=== PATIENT | male | born 1950 | race Caucasian/White ===

== ENCOUNTER 2016-03-25 06:35 | Day surgery (SDC) | payer MEDICARE, OTHER ==
[~2016-03-25 06:35] MED LIST: KETOROLAC TROMETHAMINE 0.45% 4 DROP/0.4 ML DROPERETTE OD PRN
[2016-03-25] MEDS: BESIFLOXACIN HCL 0.6% OPH SUSP 5 ML BOTTLE OD PRN ×4 (07:02→08:07)
[2016-03-25] MEDS: TETRACAINE HCL 0.5% OPH SOLN 2 ML OD PRN ×3 (07:02→07:40)
[2016-03-25] MEDS: CYCLOPENTOLATE 0.2%/PHENYLEPHRINE 1% OPH SOLN 2 ML OD PRN ×3 (07:02→07:21)
[2016-03-25] MEDS: TROPICAMIDE 1% OPH SOLN 3 ML OD PRN ×3 (07:02→07:21)
[2016-03-25] MEDS ORDERED: MIDAZOLAM 2 MG/2 ML INJ ONE ×2 (07:09)
[2016-03-25] MEDS ORDERED: EPINEPHRINE INJ/PF 1 MG/1 ML AMPULE ONE (07:11)
[2016-03-25] MEDS: CHONDR SU A NA/HYALUR INTRAOC KIT (SURGICARE) ONE ×2 (07:50)
[2016-03-25] MEDS: LIDOCAINE 1% INJ-PF (10 MG/ML) 30 ML SDV ONE ×2 (07:50)
--- NOTE | 2016-03-25 19:49 | [facility] OPERATIVE REPORT E ---
[facility] Operative Report NAME: RUSSELL PARRA AGE: 65Y DATE OF SURGERY: 03/25/2016 ROOM: PREOPERATIVE DIAGNOSIS: CATARACT, RIGHT EYE. POSTOPERATIVE DIAGNOSIS: CATARACT, RIGHT EYE. OPERATION: Cataract extraction with intraocular lens implant of the right eye. SURGEON: KALE HSU M.D. ANESTHESIA: Topical. PROCEDURE: After obtaining appropriate consent, the patient's right eye was prepped and draped in sterile fashion as well as the surgeon in a sterile manner and cataract surgery was started. First a paracentesis blade was used to make a small side-port incision. Viscoelastic was used to inflate the anterior chamber. Next a 2.4 mm incision was made with the paracentesis blade. A continuous capsulorrhexis incision was made using a cystotome and Utrata forceps. Following this hydrodissection was carried out to make the lens fully loose and mobile and it was rotated 90 degrees. Following this, a xxvglv-bpa-ndhvsex technique was used to phacoemulsify the lens with a CDE of 10.67. The remaining cortex was removed with irrigation/aspiration. Provisc was instilled into the capsular bag to inflate the bag. A SN60WF, 17.5 diopter lens was placed. The remaining viscoelastic material was removed with irrigation/aspiration. Following this, a 10-0 nylon suture was used to close the incision and it was found to be watertight. Vigamox was instilled in the eye and a protective shield was placed over the eye. The patient returned to the postoperative recovery in stable condition. DICTATING PHYSICIAN: KALE HSU M.D. [id number] PHY#: [id number] ID: [id number] JOB#: [id number] ACCT: [id number] cc:KALE HSU M.D. >
--- NOTE | 2016-03-25 19:53 | DISCHARGE SUMMARY E ---
Discharge Summary NAME: RUSSELL PARRA : 1950 AGE: 65Y ADMITTED: 03/25/2016 DISCHARGED: 03/25/2016 This is a 65-year-old male who underwent cataract extraction of the right eye. DIAGNOSIS: Cataract, right eye. He underwent surgery because he was trouble reading print like his Bible. DISCHARGE INSTRUCTIONS: He is to be on a regular diet. No bending at his waist, no heavy lifting. He is to use Besivance, Ilevro, and Durezol at 3:00 p.m. and 8:00 p.m., and sleep with a rigid shield. I will see him for his one day postoperative tomorrow. DICTATING PHYSICIAN: KALE HSU M.D. [id number] PHY#: [id number] 1926 ID: [id number] JOB#: [id number] ACCT: [id number] cc:AKLE HSU M.D. >
== END 2016-03-25 08:46 | disposition home or self-care (01) ==
LOC: SC 06:35
PROVIDERS: ATTEND Internal Medicine
PROC: 08RJ3JZ Replacement of Right Lens with Synthetic Substitute, Percutaneous Approach (ICD-10-PCS; principal; 2016-03-25 07:30)
DX: H25.11 Age-related nuclear cataract, right eye (principal); E11.9 Type 2 diabetes mellitus without complications; I10 Essential (primary) hypertension; E78.00 Pure hypercholesterolemia, unspecified; J45.909 Unspecified asthma, uncomplicated; H04.123 Dry eye syndrome of bilateral lacrimal glands; I66.8 Occlusion and stenosis of other cerebral arteries; H43.812 Vitreous degeneration, left eye; H52.4 Presbyopia; R53.1 Weakness; Z79.4 Long term (current) use of insulin; Z95.1 Presence of aortocoronary bypass graft; Z86.73 Personal history of transient ischemic attack (TIA), and cerebral infarction without residual deficits; Z79.82 Long term (current) use of aspirin; Z79.899 Other long term (current) drug therapy; Z79.02 Long term (current) use of antithrombotics/antiplatelets
CPT/HCPCS: 66984; 82962; V2632; J2250; J3490 ×2; A9270; J0171; 142

== ENCOUNTER 2016-09-04 12:57 | Inpatient (IN) | payer MEDICARE, OTHER ==
[2016-09-04] MEDS ORDERED: ACETAMINOPHEN 325 MG TABLET PO ONE (13:07)
[2016-09-04] MEDS ORDERED: NORMAL SALINE 1000 ML 1,000 ML IV ONE (13:32)
[2016-09-04 13:59] LABS: ABSOLUTE EOSINOPHILS # (AUTO) 0.1 10^3/uL (0.0-0.6); ABSOLUTE LYMPHOCYTES (AUTO) 0.8 10^3/uL (0.5-4.7); ABSOLUTE MONOCYTES (AUTO) 0.5 10^3/uL (0.1-1.4); ABSOLUTE NEUT (AUTO) 6.1 10^3/uL (1.7-8.2); BASOPHILS % (AUTO) 0.1 % (0-2); HEMATOCRIT 38.7 % (37.9-51.0); HGB HCT DIFFERENCE 0.3; LYMPHOCYTES % (AUTO) 10.9 % (13-45); MEAN CORPUSCULAR HEMOGLOBIN 30.1 pg (27.0-33.4); MEAN CORPUSCULAR HGB CONC 33.5 g/dL (32.0-36.0); MEAN CORPUSCULAR VOLUME 90 fl (80-97); RED CELL DISTRIBUTION WIDTH 13.5 % (11.5-14.0); WHITE BLOOD COUNT 7.6 10^3/uL (4.0-10.5)
[2016-09-04] MEDS ORDERED: VANCOMYCIN HCL INJ 1000 MG VIAL IV ONE (14:09)
[2016-09-04] MEDS ORDERED: PIPERACILLIN/TAZOBACTAM 3.375 GM VIAL IV ONE (14:09)
--- NOTE | 2016-09-04 14:11 | ER Document Report ---
ED General - General Chief Complaint: Leg Pain Stated Complaint: LEG PAIN Time Seen by Provider: 09/04/16 13:31 Mode of Arrival: Ambulatory Information source: Patient Notes: This is a 65-year-old man with a history of requiring diabetes, hypertension, CVA (right sided weakness), coronary artery disease. Patient presents to the emergency room with redness of the left lower extremity for the past 3 days and fever and chills. TRAVEL OUTSIDE OF THE [place] IN LAST 30 DAYS: No - HPI Onset: Last week Onset/Duration: Gradual Quality of pain: Dull Severity: Moderate Pain Level: 3 Associated symptoms: Chills, Fever. denies: Shortness of breath Exacerbated by: Denies Relieved by: Denies Similar symptoms previously: Yes Recently seen / treated by doctor: Yes - Related Data Allergies/Adverse Reactions: No Known Allergies Allergy (Verified 09/04/16 13:04) Past Medical History - General Information source: Patient - Social History Smoking Status: Never Smoker Cigarette use (# per day): No Chew tobacco use (# tins/day): No Frequency of alcohol use: None Drug Abuse: None Lives with: Family Family History: Reviewed & Not Pertinent Patient has suicidal ideation: No Patient has homicidal ideation: No - Past Medical History Cardiac Medical History: Reports: Hx Coronary Artery Disease, Hx Hypercholesterolemia, Hx Hypertension Denies: Hx Heart Attack Pulmonary Medical History: Reports: Hx Asthma, Hx Pneumonia, Hx Sleep Apnea - cpap did not help Denies: Hx Bronchitis, Hx COPD, Hx Tuberculosis Neurological Medical History: Reports: Hx Cerebrovascular Accident - DEC 2011. Denies: Hx Seizures Renal/ Medical History: Denies: Hx Peritoneal Dialysis GI Medical History: Reports: Hx Gastroesophageal Reflux Disease - rarely. Denies: Hx Hepatitis, Hx Hiatal Hernia, Hx Ulcer Musculoskeltal Medical History: Denies Hx Arthritis Traumatic Medical History: Reports: Hx Fractures - right gallegos Infectious Medical History: Denies: Hx Hepatitis Past Surgical History: Reports: Hx Appendectomy, Hx Cholecystectomy, Hx Coronary Artery Bypass Graft, Hx Open Heart Surgery - STENT bypass. Denies: Hx Pacemaker - Immunizations Hx Diphtheria, Pertussis, Tetanus Vaccination: Yes - HAS HAD PNEUMONIA BUT UNSURE OF WHEN Review of Systems - Review of Systems Constitutional: Chills, Fever EENT: No symptoms reported Cardiovascular: No symptoms reported Respiratory: No symptoms reported Gastrointestinal: No symptoms reported Genitourinary: No symptoms reported Male Genitourinary: No symptoms reported Musculoskeletal: See HPI Skin: See HPI Hematologic/Lymphatic: No symptoms reported Neurological/Psychological: No symptoms reported Physical Exam - Vital signs Vitals: Temp Pulse Resp BP Pulse Ox 102.4 F H 96 24 H 149/59 H 92 09/04/16 13:04 09/04/16 13:04 09/04/16 13:04 09/04/16 13:04 09/04/16 13:04 Notes: Physical exam: GENERAL: 65-year-old man, alert and oriented 3, he does appear weak and he is febrile HEAD: Atraumatic, normocephalic. EYES: Pupils equal round and reactive to light, extraocular movements intact, sclera anicteric, conjunctiva are normal. ENT: TMs normal, nares patent, oropharynx clear without exudates. Moist mucous membranes. NECK: Normal range of motion, supple without lymphadenopathy or JVD. LUNGS: Breath sounds clear to auscultation bilaterally and equal. No wheezes rales or rhonchi. HEART: Regular rate and rhythm without murmurs, rubs or gallops. ABDOMEN: Soft, normoactive bowel sounds. No tenderness to palpation. No guarding, no rebound. No masses appreciated. EXTREMITIES: Patient has right-sided weakness. He does have a left lower extremity cellulitis. Distal dorsal pedal pulses intact. His no ulcerations or drainage or any evidence of fluctuance or abscess. NEUROLOGICAL: Cranial nerves II through XII grossly intact. Normal speech, does have residual right-sided weakness PSYCH: Normal mood, normal affect. SKIN: Warm, Dry, have a very erythematous left lower extremity which is warm to the touch. There is no obvious pussy discharge Course - Vital Signs Vital signs: Temp Pulse Resp BP Pulse Ox 102.4 F H 96 24 H 149/59 H 92 09/04/16 13:04 09/04/16 13:04 09/04/16 13:04 09/04/16 13:04 09/04/16 13:04 - Laboratory Result Diagrams: 09/04/16 13:40 09/04/16 13:40 Laboratory results interpreted by me: 09/04/16 09/04/16 13:40 13:40 RBC 4.30 L Hgb 13.0 L Plt Count 148 L Seg Neutrophils % 81.0 H Lymphocytes % 10.9 L Sodium 134.4 L Chloride 96 L Glucose 322 H Discharge - Discharge Clinical Impression: Cellulitis Uncontrolled diabetes mellitus Qualifiers: Diabetes mellitus type: type 1 Diabetes mellitus complication status: with skin complications Admitting Provider: Hospitalist - Dr Borjas Unit Admitted: Medical Floor Referrals: THOMAS PELAEZ MD [Primary Care Provider] - Follow up as needed
[2016-09-04 14:17] LABS: ALANINE AMINOTRANSFERASE 33 U/L (21-72); ALBUMIN 3.6 g/dL (3.5-5.0); ALKALINE PHOSPHATASE 49 U/L (38-126); ANION GAP 11 (5-19); ASPARTATE AMINO TRANSFERASE 32 U/L (17-59); BILIRUBIN,DIRECT 0.3 mg/dL (0.0-0.4); BILIRUBIN,TOTAL 0.9 mg/dL (0.2-1.3); BLOOD UREA NITROGEN 19 mg/dL (7-20); CALCIUM 8.5 mg/dL (8.4-10.2); CARBON DIOXIDE 27 mmol/L (22-30); CHLORIDE 96 mmol/L (98-107); GLUCOSE 322 mg/dL (75-110); POTASSIUM 4.6 mmol/L (3.6-5.0); SODIUM 134.4 mmol/L (137-145); TOTAL PROTEIN 6.5 g/dL (6.3-8.2)
[2016-09-04] MEDS ORDERED: HYDRALAZINE HCL INJ/PF 20 MG/1 ML SDV IV PRN (15:19)
[2016-09-04] MEDS ORDERED: GLUCAGON,HUMAN RECOMB 1 MG INJ IM PRN (15:22)
[2016-09-04] MEDS ORDERED: DEXTROSE 50%-WATER 25 GM/50 ML DISP.SYRIN IV PRN ×2 (15:22)
[2016-09-04] MEDS ORDERED: DEXTROSE 40% GEL 15 GM TUBE PO PRN ×2 (15:22)
[2016-09-04] MEDS ORDERED: ONDANSETRON HCL INJ/PF 4 MG/2 ML SDV IV PRN (15:24)
[2016-09-04] MEDS ORDERED: NORMAL SALINE 1000 ML 1,000 ML IV PRN (15:24)
[2016-09-04] MEDS ORDERED: VANCOMYCIN HCL 0 MG in DEXTROSE 5%-WATER 250 ML IV NR (15:30)
--- NOTE | 2016-09-04 15:56 | RADIOLOGY REPORT (SQ) ---
EXAM DESCRIPTION: CHEST SINGLE VIEW COMPLETED DATE/TIME: 09/04/2016 3:40 pm REASON FOR STUDY: fever COMPARISON: 2011. NUMBER OF VIEWS: One view. TECHNIQUE: Single frontal radiographic view of the chest acquired. LIMITATIONS: None. FINDINGS: LUNGS AND PLEURA: No opacities, masses or pneumothorax. No pleural effusion. MEDIASTINUM AND HILAR STRUCTURES: No masses. Contour normal. HEART AND VASCULAR STRUCTURES: Heart normal in size. Normal vasculature. BONES: No acute findings. HARDWARE: None in the chest. OTHER: No other significant finding. IMPRESSION: NO SIGNIFICANT RADIOGRAPHIC FINDING IN THE CHEST. TECHNICAL DOCUMENTATION: JOB ID: [id number] [employer]- All Rights Reserved
--- NOTE | 2016-09-04 16:07 | PDOC H&P ---
History of Present Illness Admission Date/PCP: 09/04/16 15:24 THOMAS PELAEZ MD Patient complains of: Left leg pain and swelling History of Present Illness: RUSSELL PARRA is a 65 year old male with past medical history of diabetes mellitus, chronic lower extremity edema, left lower extremity rash the presents with 2 day history of left leg pain and swelling. Patient was started on Augmentin on 09/03/2016 but has had worsening of his symptoms as well as high fevers and decreased appetite. Home medications have not been verified at the time of this dictation but according to patient's list include Lasix 40 mg daily, Plavix 75 mg daily, metformin 500 mg daily, Neurontin 300 mg 3 times a day, lisinopril 20 mg daily, Toprol-XL 100 mg daily, simvastatin 40 mg daily, Lantus 60 units nightly, aspirin 81 mg daily. Past Medical History Cardiac Medical History: Reports: Coronary Artery Disease, Hyperlipidema, Hypertension Denies: Myocardial Infarction Pulmonary Medical History: Reports: Asthma, Pneumonia, Sleep Apnea - cpap did not help Denies: Bronchitis, Chronic Obstructive Pulmonary Disease (COPD), Tuberculosis Neurological Medical History: Reports: Ischemic CVA Denies: Seizures Endocrine Medical History: Reports: Diabetes Mellitus Type 2 GI Medical History: Reports: Gastroesophageal Reflux Disease - rarely Denies: Hepatitis, Hiatal Hernia Musculoskeltal Medical History: Denies: Arthritis Hematology: Denies: Anemia, Sickle Cell Disease Past Surgical History Past Surgical History: Reports: Appendectomy, Cardiac Catheterization - Stent placed, Cholecystectomy, Coronary Artery Bypass Graft Denies: Pacemaker Social History Information Source: Patient Lives with: Spouse/Significant other Smoking Status: Never Smoker Frequency of Alcohol Use: None Hx Recreational Drug Use: No Hx Prescription Drug Abuse: No - Advance Directive Resuscitation Status: Full Code Surrogate healthcare decision maker:: Family History Family History: CAD, DM Parental Family History Reviewed: Yes Children Family History Reviewed: Yes Sibling(s) Family History Reviewed.: Yes Medication/Allergy Home Medications: Clopidogrel Bisulfate [Plavix 75 mg Tablet] 75 mg PO DAILY 09/04/16 Gabapentin [Neurontin 300 mg Capsule] 300 mg PO Q8 09/04/16 Insulin Aspart [Novolog Flexpen] 40 units SUBCUT ACP PRN 09/04/16 Lisinopril [Prinivil] 20 mg PO DAILY 09/04/16 Metformin HCl [Metformin HCl ER] 500 mg PO DAILY 09/04/16 Metoprolol Succinate [Toprol XL 100 mg Tablet] 100 mg PO DAILY 09/04/16 Simvastatin 40 mg PO QHS 09/04/16 Triamcinolone Acetonide [Aristocort 0.1% Cream] 1 applic TOP BID 09/04/16 Allergies/Adverse Reactions: No Known Allergies Allergy (Verified 09/04/16 13:04) Review of Systems Constitutional: PRESENT: anorexia, chills, fatigue, fever(s), weakness. ABSENT : headache(s), weight gain, weight loss Eyes: ABSENT: visual disturbances Ears: ABSENT: hearing changes Cardiovascular: PRESENT: edema. ABSENT: chest pain, dyspnea on exertion, orthropnea, palpitations Respiratory: ABSENT: cough, hemoptysis Gastrointestinal: ABSENT: abdominal pain, constipation, diarrhea, hematemesis, hematochezia, nausea, vomiting Genitourinary: ABSENT: dysuria, hematuria Musculoskeletal: ABSENT: joint swelling Integumentary: PRESENT: erythema, rash. ABSENT: wounds Neurological: ABSENT: abnormal gait, abnormal speech, confusion, dizziness, focal weakness, syncope Psychiatric: ABSENT: anxiety, depression, homidical ideation, suicidal ideation Endocrine: ABSENT: cold intolerance, heat intolerance, polydipsia, polyuria Hematologic/Lymphatic: ABSENT: easy bleeding, easy bruising Physical Exam Vital Signs: Temp Pulse Resp BP Pulse Ox 102.4 F H 96 24 H 149/59 H 92 09/04/16 13:04 09/04/16 13:04 09/04/16 13:04 09/04/16 13:04 09/04/16 13:04 PHYSICAL EXAM: GENERAL: Appears well, no acute distress HEENT: Normocephalic, no scleral icterus, conjunctiva clear, EOEM intact, PERRLA , moist mucous membranes NECK: trachea midline, no thyromegally RESPIRATORY: Clear to auscultation, no wheezes/rhonchi CARDIAC: Regular rate and rhythm, no murmur/nanette/rub ABDOMEN: Soft, no distension, no tenderness, no guarding, normal bowel sounds, negative Ruiz sign RECTAL: deferred : deferred EXTREMITIES: Pitting edema in bilateral lower extremities MUSCULOSKELETAL: No joint swelling or deformity VASCULAR: normal peripheral pulses NEUROLOGIC: Alert, oriented to person/place/time, normal speech, cranial nerves grossly intact, 5/5 strength in all extremities, tactile sensation intact in all extremities SKIN: Erythema/induration left lower extremity with some blistering extending from the midfoot to the knee PSYCHIATRIC: Normal mood, normal affect Results Impressions: Chest X-Ray 09/04/16 15:12 IMPRESSION: NO SIGNIFICANT RADIOGRAPHIC FINDING IN THE CHEST. Assessment & Plan - Diagnosis (1) SIRS (systemic inflammatory response syndrome) Is this a current diagnosis for this admission?: YesPlan: Secondary to left lower extremity cellulitis. (2) Left leg cellulitis Is this a current diagnosis for this admission?: YesPlan: Failed outpatient Augmentin. Continue IV vancomycin and IV Zosyn initiated in the emergency department. Blood cultures pending. (3) Coronary artery disease Is this a current diagnosis for this admission?: YesPlan: Continue aspirin, Plavix, Toprol-XL, simvastatin. (4) Edema Is this a current diagnosis for this admission?: YesPlan: Increase home dose of Lasix to Lasix 40 mg twice daily. (5) Morbid obesity with BMI of 40.0-44.9, adult Is this a current diagnosis for this admission?: Yes (6) Uncontrolled diabetes mellitus Qualifiers: Diabetes mellitus type: type 1 Diabetes mellitus complication status: with skin complications Is this a current diagnosis for this admission?: YesPlan: Hold metformin secondary to SIRS. Continue Lantus 60 units subcu nightly. Continue sliding scale insulin coverage. - Time Time Spent: Greater than 70 Minutes - Inpatient Certification Based on my medical assessment, after consideration of the patient's comorbidities, presenting symptoms, or acuity I expect that the services needed warrant INPATIENT care.: Yes I certify that my determination is in accordance with my understanding of Medicare's requirements for reasonable and necessary INPATIENT services [42 CFR 412.3e].: Yes Medical Necessity: Need for IV Antibiotics
[2016-09-04] MEDS ORDERED: ENOXAPARIN SODIUM INJ 40 MG/0.4 ML DISP.SYRIN SUBCUT ONE (17:00)
[2016-09-04] MEDS: FUROSEMIDE 40 MG TABLET PO SCH (17:45)
[2016-09-04] MEDS: PIPERACILLIN SODIUM/TAZOBACTAM 3.375 GM in NORMAL SALINE 100 ML IV SCH ×2 (17:55→23:27)
[2016-09-04] MEDS: INSULIN LISPRO 100 UNIT/ML 3 ML VIAL SUBCUT PRN (18:22)
[2016-09-04] MEDS: SIMVASTATIN 40 MG TABLET PO SCH (21:39)
[2016-09-04] MEDS: ACETAMINOPHEN 325 MG TABLET PO PRN (21:40)
[2016-09-04] MEDS: INSULIN GLARGINE,HUM.REC.ANLOG 300 UNIT/3 ML INSULN.PEN SUBCUT SCH (21:40)
[2016-09-04] MEDS: GABAPENTIN 300 MG CAPSULE PO SCH (21:40)
[2016-09-04] MEDS ORDERED: VANCOMYCIN HCL INJ 1000 MG VIAL ONE (22:10)
[2016-09-04] MEDS ORDERED: VANCOMYCIN HCL INJ 500 MG VIAL ONE (22:53)
[2016-09-04] MEDS: VANCOMYCIN HCL 1,500 MG in DEXTROSE 5%-WATER 250 ML IV SCH (23:28)
[2016-09-05 05:57] LABS: ABSOLUTE EOSINOPHILS # (AUTO) 0.1 10^3/uL (0.0-0.6); ABSOLUTE LYMPHOCYTES (AUTO) 1.2 10^3/uL (0.5-4.7); ABSOLUTE MONOCYTES (AUTO) 0.6 10^3/uL (0.1-1.4); ABSOLUTE NEUT (AUTO) 4.8 10^3/uL (1.7-8.2); BASOPHILS % (AUTO) 0.1 % (0-2); EOSINOPHILS % (AUTO) 2.1 % (0-6); HEMATOCRIT 37.6 % (37.9-51.0); HEMOGLOBIN 12.8 g/dL (13.5-17.0); HGB HCT DIFFERENCE 0.8; LYMPHOCYTES % (AUTO) 18.2 % (13-45); MEAN CORPUSCULAR HEMOGLOBIN 30.6 pg (27.0-33.4); MEAN CORPUSCULAR HGB CONC 34.1 g/dL (32.0-36.0); MEAN CORPUSCULAR VOLUME 90 fl (80-97); MONOCYTES % (AUTO) 9.2 % (3-13); RED CELL DISTRIBUTION WIDTH 13.3 % (11.5-14.0); SEGMENTED NEUTROPHILS % (AUTO) 70.4 % (42-78); WHITE BLOOD COUNT 6.8 10^3/uL (4.0-10.5)
[2016-09-05] MEDS: PIPERACILLIN SODIUM/TAZOBACTAM 3.375 GM in NORMAL SALINE 100 ML IV SCH ×3 (06:06→17:54)
[2016-09-05] MEDS: GABAPENTIN 300 MG CAPSULE PO SCH ×3 (06:06→21:48)
[2016-09-05 06:09] LABS: ANION GAP 10 (5-19); BLOOD UREA NITROGEN 17 mg/dL (7-20); CALCIUM 8.1 mg/dL (8.4-10.2); CARBON DIOXIDE 26 mmol/L (22-30); CHLORIDE 99 mmol/L (98-107); CREATININE RESULT 1.03 mg/dL (0.52-1.25); GLUCOSE 206 mg/dL (75-110); POTASSIUM 4.1 mmol/L (3.6-5.0)
[2016-09-05] MEDS ORDERED: ENOXAPARIN SODIUM INJ 40 MG/0.4 ML DISP.SYRIN SUBCUT SCH (08:00)
[2016-09-05] MEDS: FUROSEMIDE 40 MG TABLET PO SCH ×2 (09:47→17:54)
[2016-09-05] MEDS: LISINOPRIL 10 MG TABLET PO SCH (09:48)
[2016-09-05] MEDS: METOPROLOL SUCCINATE 50 MG TAB.SR.24H PO SCH (09:48)
[2016-09-05] MEDS: ACETAMINOPHEN 325 MG TABLET PO PRN (09:49)
[2016-09-05] MEDS: CLOPIDOGREL BISULFATE 75 MG TABLET PO SCH (09:49)
[2016-09-05] MEDS: ASPIRIN 81 MG TABLET, ENT COATED PO SCH (09:49)
[2016-09-05] MEDS: VANCOMYCIN HCL 1,500 MG in DEXTROSE 5%-WATER 250 ML IV SCH ×2 (09:50→21:51)
[2016-09-05] MEDS ORDERED: OXYCODONE HCL IR 5 MG TABLET PO PRN (11:30)
--- NOTE | 2016-09-05 11:41 | PDOC PROGRESS REPORT ---
Subjective Progress Note for:: 09/05/16 Subjective:: Patient has continued high fevers today. His left leg does not look significantly better in admission. He does feel generally better however. Physical Exam Vital Signs: Temp Pulse Resp BP Pulse Ox 100.7 F H 91 24 H 144/64 H 91 L 09/05/16 09:00 09/05/16 09:00 09/05/16 09:00 09/05/16 09:00 09/05/16 09:00 Intake & Output 09/04/16 09/05/16 09/06/16 06:59 06:59 06:59 Intake Total 900 570 Balance 900 570 Weight 112.6 kg GENERAL: Appears well, no acute distress HEENT: Normocephalic, no scleral icterus, conjunctiva clear, EOEM intact, PERRLA , moist mucous membranes NECK: trachea midline, no thyromegally RESPIRATORY: Clear to auscultation, no wheezes/rhonchi CARDIAC: Regular rate and rhythm, no murmur/nanette/rub ABDOMEN: Soft, obese, no tenderness, no guarding, normal bowel sounds, negative Ruiz sign RECTAL: deferred : deferred EXTREMITIES: Pitting edema in bilateral lower extremities MUSCULOSKELETAL: No pain with plantar/dorsiflexion of left foot VASCULAR: normal peripheral pulses NEUROLOGIC: Alert, oriented to person/place/time, normal speech, cranial nerves grossly intact, 5/5 strength in all extremities, tactile sensation intact in all extremities SKIN: Erythema/induration left lower extremity with some blistering extending from the midfoot to the knee PSYCHIATRIC: Normal mood, normal affect Results Laboratory Results: 09/05/16 05:00 09/05/16 05:00 09/05/16 09/05/16 09/05/16 05:00 05:00 05:00 WBC 6.8 RBC 4.20 L Hgb 12.8 L Hct 37.6 L MCV 90 MCH 30.6 MCHC 34.1 RDW 13.3 Plt Count 141 L Seg Neutrophils % 70.4 Lymphocytes % 18.2 Monocytes % 9.2 Eosinophils % 2.1 Basophils % 0.1 Absolute Neutrophils 4.8 Absolute Lymphocytes 1.2 Absolute Monocytes 0.6 Absolute Eosinophils 0.1 Absolute Basophils 0.0 Sodium 135.0 L Potassium 4.1 Chloride 99 Carbon Dioxide 26 Anion Gap 10 BUN 17 Creatinine 1.03 Est GFR ( Amer) > 60 Est GFR (Non-Af Amer) > 60 Glucose 206 H Calcium 8.1 L TSH 1.77 Impressions: Chest X-Ray 09/04/16 15:12 IMPRESSION: NO SIGNIFICANT RADIOGRAPHIC FINDING IN THE CHEST. Assessment & Plan - Diagnosis (1) SIRS (systemic inflammatory response syndrome) Is this a current diagnosis for this admission?: YesPlan: Secondary to left lower extremity cellulitis. Patient remains febrile on IV Zosyn and IV vancomycin day #2. Blood cultures pending. (2) Left leg cellulitis Is this a current diagnosis for this admission?: YesPlan: Failed outpatient Augmentin. Continue IV vancomycin and IV Zosyn initiated in the emergency department. Blood cultures pending. Check CT scan of left lower extremity to rule out deep space infection. Check left lower extremity venous Doppler to rule out DVT. (3) Coronary artery disease Is this a current diagnosis for this admission?: YesPlan: Continue aspirin, Plavix, Toprol-XL, simvastatin. (4) Edema Is this a current diagnosis for this admission?: YesPlan: Increased home dose of Lasix to Lasix 40 mg twice daily. (5) Morbid obesity with BMI of 40.0-44.9, adult Is this a current diagnosis for this admission?: Yes (6) Uncontrolled diabetes mellitus Qualifiers: Diabetes mellitus type: type 1 Diabetes mellitus complication status: with skin complications Is this a current diagnosis for this admission?: YesPlan: Patient hyperglycemic secondary to infection. Hold metformin secondary to SIRS. Continue Lantus 60 units subcu nightly. Continue sliding scale insulin coverage. Hemoglobin A1c 6.9.
[2016-09-05] MEDS: INSULIN LISPRO 100 UNIT/ML 3 ML VIAL SUBCUT PRN ×3 (12:29→21:51)
--- NOTE | 2016-09-05 13:25 | RADIOLOGY REPORT (SQ) ---
EXAM DESCRIPTION: CT LEFT LOWER EXTREMITY WITH COMPLETED DATE/TIME: 09/05/2016 1:08 pm REASON FOR STUDY: LLE cellulitis, r/o abscess COMPARISON: None. TECHNIQUE: Axial imaging performed through the left lower leg with with contrast with reformatted co kely and sagittal imaging windowed for bone and soft tissues. Images saved to PACS. 3D IMAGING: Were 3D images as MIP, SSD, or volume rendering performed at the work station? No. All CT scanners at this facility use dose modulation, iterative reconstruction, and/or weight based d osing when appropriate to reduce radiation dose to as low as reasonably achievable (ALARA). [facility]: Dose Right [facility]: CareDose [facility]: Dose Right [facility]: Teradose 4D [facility]: [employer] CONTRAST DOSE: 80 mL Isovue 370. RENAL FUNCTION: BUN 17 creatinine 1.03. LIMITATIONS: None. RADIATION DOSE: Up-to-date CT equipment and radiation dose reduction techniques were employed. CTDIv ol: 4.1 mGy. DLP: 211 mGy-cm. mGy. FINDINGS: SOFT TISSUES: Diffuse edema/inflammation in the subcutaneous fatty tissues. Diffuse skin thickening. No focal fluid collections. BONES: No acute fracture. No dislocation. MINERALIZATION: Normal. OTHER: No other significant finding. IMPRESSION: DIFFUSE EDEMA/ INFLAMMATION IN THE SUBCUTANEOUS FATTY TISSUES. DIFFUSE SKIN THICKENING. NO SOFT TISSUE ABSCESS. NO SIGNIFICANT BONY FINDINGS. TECHNICAL DOCUMENTATION: JOB ID: [id number] Quality ID # [id number]: Final reports with documentation of one or more dose reduction techniques (e.g., Au tomated exposure control, adjustment of the mA and/or kV according to patient size, use of iterative reconstruction technique) 2010 [employer]- All Rights Reserved
[2016-09-05] MEDS: SIMVASTATIN 40 MG TABLET PO SCH (21:48)
[2016-09-05] MEDS: INSULIN GLARGINE,HUM.REC.ANLOG 300 UNIT/3 ML INSULN.PEN SUBCUT SCH (21:51)
[2016-09-06] MEDS: ACETAMINOPHEN 325 MG TABLET PO PRN ×2 (00:44→21:41)
[2016-09-06] MEDS: PIPERACILLIN SODIUM/TAZOBACTAM 3.375 GM in NORMAL SALINE 100 ML IV SCH ×5 (01:34→23:40)
[2016-09-06 05:52] LABS: ABSOLUTE EOSINOPHILS # (AUTO) 0.1 10^3/uL (0.0-0.6); ABSOLUTE LYMPHOCYTES (AUTO) 1.4 10^3/uL (0.5-4.7); ABSOLUTE MONOCYTES (AUTO) 0.8 10^3/uL (0.1-1.4); ABSOLUTE NEUT (AUTO) 4.8 10^3/uL (1.7-8.2); BASOPHILS % (AUTO) 0.1 % (0-2); EOSINOPHILS % (AUTO) 0.9 % (0-6); HEMATOCRIT 34.5 % (37.9-51.0); HEMOGLOBIN 11.8 g/dL (13.5-17.0); HGB HCT DIFFERENCE 0.9; LYMPHOCYTES % (AUTO) 19.9 % (13-45); MEAN CORPUSCULAR HGB CONC 34.3 g/dL (32.0-36.0); MEAN CORPUSCULAR VOLUME 88 fl (80-97); MONOCYTES % (AUTO) 11.8 % (3-13); RED BLOOD COUNT 3.94 10^6/uL (4.35-5.55); RED CELL DISTRIBUTION WIDTH 13.4 % (11.5-14.0); SEGMENTED NEUTROPHILS % (AUTO) 67.3 % (42-78); WHITE BLOOD COUNT 7.2 10^3/uL (4.0-10.5)
[2016-09-06 06:07] LABS: ANION GAP 11 (5-19); BLOOD UREA NITROGEN 19 mg/dL (7-20); CALCIUM 8.3 mg/dL (8.4-10.2); CARBON DIOXIDE 26 mmol/L (22-30); CHLORIDE 99 mmol/L (98-107); CREATININE RESULT 1.51 mg/dL (0.52-1.25); GLUCOSE 154 mg/dL (75-110); POTASSIUM 3.6 mmol/L (3.6-5.0); SODIUM 135.6 mmol/L (137-145)
[2016-09-06] MEDS: GABAPENTIN 300 MG CAPSULE PO SCH ×3 (06:21→21:41)
[2016-09-06] MEDS ORDERED: ONDANSETRON HCL INJ/PF 4 MG/2 ML SDV IV PRN (07:54)
[2016-09-06] MEDS: ASPIRIN 81 MG TABLET, ENT COATED PO SCH (09:42)
[2016-09-06] MEDS: FUROSEMIDE 40 MG TABLET PO SCH (09:42)
[2016-09-06] MEDS: METOPROLOL SUCCINATE 50 MG TAB.SR.24H PO SCH (09:42)
[2016-09-06] MEDS: LISINOPRIL 10 MG TABLET PO SCH (09:42)
[2016-09-06] MEDS: FONDAPARINUX SODIUM INJ 2.5 MG/0.5 ML DISP.SYRIN SUBCUT SCH (09:42)
[2016-09-06] MEDS: CLOPIDOGREL BISULFATE 75 MG TABLET PO SCH (09:42)
[2016-09-06] MEDS: VANCOMYCIN HCL 1,500 MG in DEXTROSE 5%-WATER 250 ML IV SCH (12:48)
[2016-09-06] MEDS ORDERED: NORMAL SALINE 1000 ML 1,000 ML IV PRN (14:39)
--- NOTE | 2016-09-06 15:25 | PDOC PROGRESS REPORT ---
Subjective Progress Note for:: 09/06/16 Subjective:: Fevers are improving. Patient has continued discomfort and swelling in his left leg, but feels that this is improved since admission. Overall he states he feels much better in general than he did on admission. Physical Exam Vital Signs: Temp Pulse Resp BP Pulse Ox 99.8 F 71 16 113/48 L 92 09/06/16 11:00 09/06/16 11:00 09/06/16 11:00 09/06/16 11:00 09/06/16 11:00 Intake & Output 09/05/16 09/06/16 09/07/16 06:59 06:59 06:59 Intake Total 900 2300 Balance 900 2300 Weight 112.6 kg GENERAL: Appears well, no acute distress HEENT: Normocephalic, no scleral icterus, conjunctiva clear, EOEM intact, PERRLA , moist mucous membranes NECK: trachea midline, no thyromegally RESPIRATORY: Clear to auscultation, no wheezes/rhonchi CARDIAC: Regular rate and rhythm, no murmur/nanette/rub ABDOMEN: Soft, obese, no tenderness, no guarding, normal bowel sounds, negative Ruiz sign RECTAL: deferred : deferred EXTREMITIES: Pitting edema in bilateral lower extremities MUSCULOSKELETAL: No pain with plantar/dorsiflexion of left foot VASCULAR: normal peripheral pulses NEUROLOGIC: Alert, oriented to person/place/time, normal speech, cranial nerves grossly intact, 5/5 strength in all extremities, tactile sensation intact in all extremities SKIN: Erythema/induration left lower extremity with some blistering extending from the midfoot to the knee improved from admission PSYCHIATRIC: Normal mood, normal affect Results Laboratory Results: 09/06/16 05:12 09/06/16 05:12 09/06/16 09/06/16 05:12 05:12 WBC 7.2 RBC 3.94 L Hgb 11.8 L Hct 34.5 L MCV 88 MCH 30.0 MCHC 34.3 RDW 13.4 Plt Count 140 L Seg Neutrophils % 67.3 Lymphocytes % 19.9 Monocytes % 11.8 Eosinophils % 0.9 Basophils % 0.1 Absolute Neutrophils 4.8 Absolute Lymphocytes 1.4 Absolute Monocytes 0.8 Absolute Eosinophils 0.1 Absolute Basophils 0.0 Sodium 135.6 L Potassium 3.6 Chloride 99 Carbon Dioxide 26 Anion Gap 11 BUN 19 Creatinine 1.51 H Est GFR ( Amer) 56 L Est GFR (Non-Af Amer) 47 L Glucose 154 H Calcium 8.3 L Impressions: Chest X-Ray 09/04/16 15:12 IMPRESSION: NO SIGNIFICANT RADIOGRAPHIC FINDING IN THE CHEST. Lower Extremity CT 09/05/16 00:00 IMPRESSION: DIFFUSE EDEMA/ INFLAMMATION IN THE SUBCUTANEOUS FATTY TISSUES. DIFFUSE SKIN THICKENING. NO SOFT TISSUE ABSCESS. NO SIGNIFICANT BONY FINDINGS. Assessment & Plan - Diagnosis (1) SIRS (systemic inflammatory response syndrome) Is this a current diagnosis for this admission?: YesPlan: Secondary to left lower extremity cellulitis. Fevers improving. White blood count normal. (2) Left leg cellulitis Is this a current diagnosis for this admission?: YesPlan: Failed outpatient Augmentin. Continue IV vancomycin and IV Zosyn day #3. Blood cultures no growth. CT scan of left lower extremity negative for deep space infection. Left lower extremity venous Doppler negative for DVT. (3) Coronary artery disease Is this a current diagnosis for this admission?: YesPlan: Continue aspirin, Plavix, Toprol-XL, simvastatin. (4) Edema Is this a current diagnosis for this admission?: Yes (5) Morbid obesity with BMI of 40.0-44.9, adult Is this a current diagnosis for this admission?: Yes (6) Uncontrolled diabetes mellitus Qualifiers: Diabetes mellitus type: type 1 Diabetes mellitus complication status: with skin complications Is this a current diagnosis for this admission?: YesPlan: Patient hyperglycemic secondary to infection. Holding metformin secondary to SIRS and acute kidney injury. Continue Lantus 60 units subcu nightly. Continue sliding scale insulin coverage. Hemoglobin A1c 6.9. (7) Acute kidney injury Is this a current diagnosis for this admission?: YesPlan: Likely secondary to contrast nephropathy from CT scan yesterday. Hold lisinopril, Lasix. Gentle IV fluids 24 hours. Repeat kidney function in the morning. Monitor vancomycin closely. (8) Thrombocytopenia Is this a current diagnosis for this admission?: YesPlan: Discontinue Lovenox. Start Arixtra for DVT prophylaxis. - Time Time Spent with patient: 35 or more minutes
--- NOTE | 2016-09-06 15:45 | XCELERA REPORT ---
[address] [address] Lower Extremity Venous Evaluation Name: RUSSELL PARRA Age: 65 yrs Gender: Male : 1950 Patient Status: Inpatient Patient Location: [id number] Study Date: 09/05/2016 05:01 PM Procedure: Color flow and duplex imaging of the veins of the left lower extremity as well as the right Common Femoral vein. Reason For Study: LLE pain/swelling Ordering Physician: DIANA DUNAWAY Performed By: Tay Casey Right Sided Venous Evaluation The right common femoral vein is fully compressible. Spontaneous and phasic flow is present in the right common femoral vein. Left Sided Venous Evaluation Normal vessel filling wall to wall, compression and augmentation as well as Colour flow down to the infrageniculate veins. Interpretation Summary No duplex evidence of DVT or obstruction in the left lower extremity nor in the right Common Femoral vein. : DIANA DUNAWAY [place]
[2016-09-06] MEDS: INSULIN LISPRO 100 UNIT/ML 3 ML VIAL SUBCUT PRN ×2 (17:44→21:40)
[2016-09-06] MEDS: VANCOMYCIN HCL 1,250 MG in DEXTROSE 5%-WATER 250 ML IV SCH (18:58)
[2016-09-06] MEDS: INSULIN GLARGINE,HUM.REC.ANLOG 300 UNIT/3 ML INSULN.PEN SUBCUT SCH (21:40)
[2016-09-06] MEDS: SIMVASTATIN 40 MG TABLET PO SCH (21:41)
[2016-09-07] MEDS: VANCOMYCIN HCL 1,250 MG in DEXTROSE 5%-WATER 250 ML IV SCH (02:15)
[2016-09-07 05:13] LABS: ABSOLUTE EOSINOPHILS # (AUTO) 0.2 10^3/uL (0.0-0.6); ABSOLUTE LYMPHOCYTES (AUTO) 1.6 10^3/uL (0.5-4.7); ABSOLUTE MONOCYTES (AUTO) 0.8 10^3/uL (0.1-1.4); BASOPHILS % (AUTO) 0.1 % (0-2); EOSINOPHILS % (AUTO) 2.3 % (0-6); HEMATOCRIT 38.1 % (37.9-51.0); HEMOGLOBIN 12.8 g/dL (13.5-17.0); HGB HCT DIFFERENCE 0.3; LYMPHOCYTES % (AUTO) 21.1 % (13-45); MEAN CORPUSCULAR HEMOGLOBIN 29.9 pg (27.0-33.4); MEAN CORPUSCULAR HGB CONC 33.5 g/dL (32.0-36.0); MEAN CORPUSCULAR VOLUME 89 fl (80-97); MONOCYTES % (AUTO) 10.6 % (3-13); RED BLOOD COUNT 4.28 10^6/uL (4.35-5.55); RED CELL DISTRIBUTION WIDTH 13.6 % (11.5-14.0); SEGMENTED NEUTROPHILS % (AUTO) 65.9 % (42-78); WHITE BLOOD COUNT 7.6 10^3/uL (4.0-10.5)
[2016-09-07 05:27] LABS: ANION GAP 12 (5-19); BLOOD UREA NITROGEN 24 mg/dL (7-20); CALCIUM 8.7 mg/dL (8.4-10.2); CARBON DIOXIDE 27 mmol/L (22-30); CHLORIDE 97 mmol/L (98-107); GLUCOSE 194 mg/dL (75-110); POTASSIUM 3.7 mmol/L (3.6-5.0); SODIUM 136.3 mmol/L (137-145)
[2016-09-07] MEDS: PIPERACILLIN SODIUM/TAZOBACTAM 3.375 GM in NORMAL SALINE 100 ML IV SCH ×3 (06:20→19:09)
[2016-09-07] MEDS: GABAPENTIN 300 MG CAPSULE PO SCH ×3 (06:20→21:36)
[2016-09-07] MEDS ORDERED: NORMAL SALINE 1000 ML 1,000 ML IV PRN (07:49)
[2016-09-07] MEDS ORDERED: PHARMACY COMMUNICATION ORDER MC NR (08:00)
[2016-09-07] MEDS: INSULIN LISPRO 100 UNIT/ML 3 ML VIAL SUBCUT PRN ×3 (08:33→22:41)
[2016-09-07] MEDS: CLOPIDOGREL BISULFATE 75 MG TABLET PO SCH (09:51)
[2016-09-07] MEDS: FONDAPARINUX SODIUM INJ 2.5 MG/0.5 ML DISP.SYRIN SUBCUT SCH (09:51)
[2016-09-07] MEDS: METOPROLOL SUCCINATE 50 MG TAB.SR.24H PO SCH (09:52)
[2016-09-07] MEDS: ASPIRIN 81 MG TABLET, ENT COATED PO SCH (09:53)
[2016-09-07] MEDS: INSULIN LISPRO 100 UNIT/ML 3 ML VIAL SUBCUT SCH ×2 (14:07→19:08)
[2016-09-07] MEDS: HEPARIN SOD (PORCINE) 5,000 UNIT/ML 1 ML SYRINGE SUBCUT SCH ×2 (14:07→22:42)
[2016-09-07] MEDS: LINEZOLID 300 ML IV SCH (14:24)
[2016-09-07] MEDS: CLINDAMYCIN 600 MG/D5W RTU 50 ML IV SCH ×2 (15:42→21:34)
--- NOTE | 2016-09-07 17:44 | PDOC CONSULTATION ---
Consultation Consult Date: 09/07/16 Attending physician:: KASSI CORNELIUS Consult reason:: I was asked by Dr. Cornelius to see the patient because of acute kidney injury. History of Present Illness Admission Date/PCP: 09/04/16 15:24 THOMAS PELAEZ MD History of Present Illness: The patient is a 65-year-old gentleman with history of coronary artery disease, hypertension, hyperlipidemia, diabetes mellitus type 2, sleep apnea, and COPD who was admitted on September 04 because of left leg pain and swelling. Patient does not seem to be in a very good historian. Patient said that last week when he said they he noted that there are some redness and erythema on his left leg. This has progressively gotten worse. He saw a doctor on 09/03/2016 and was given Augmentin. However the swelling and pain in his legs has gotten even worse associated with high fever and decreased appetite so he presented himself to the emergency room on Tuesday. He was admitted for left lower extremity cellulitis and possible SIRS. He was started on antibiotics with initial vancomycin and IV Zosyn. His metformin was held on admission. However he continues to take Lasix and lisinopril. He had a CT scan with contrast of this leg 2 days ago on 09/05. Initial kidney function on admission showed a BUN of 19 creatinine of 1.1 with estimated GFR greater than 60 which is apparently normal. Yesterday he had a BUN of 19 and creatinine of 1.51 with estimated GFR 47. Today he had a BUN of 24 and creatinine of 2.4 with estimated GFR of 27. Patient tells me that since he was given a contrast he has not been urinating pretty good. In fact today he said he has not made any urine at all. According to the nurse patient was noted to be incontinent of urine and stool last night though. He could not tell me if his bladder feels full. He denies any history of kidney disease in the past but did have history of kidney stones years ago. He denies any blood in the urine. Currently said he is not having any chest pains no shortness of breath. Denies any nausea or vomiting he is eating good. Yesterday his lisinopril and Lasix were discontinued. Started on some IV fluid hydration. Vancomycin was also discontinued today. Vancomycin trough level was only 8.1. He was started on some IV fluid hydration with normal saline at 200 mL/min today. Despite that the patient maintained that he has not really made any urine today. Kidney ultrasound was ordered but still not done at this point. We did a bladder scan here in the floor and he has about 453 mL of urine in his bladder at the moment. Past Medical History Cardiac Medical History: Reports: Coronary Artery Disease, Hyperlipidemia, Hypertension-primary Pulmonary Medical History: Reports: Asthma, Pneumonia, Sleep Apnea - cpap did not help Neurological Medical History: Reports: Ischemic CVA Endocrine Medical History: Reports: Diabetes Mellitus Type 2 Renal/ Medical History: Reports: Other - History of kidney stones in the past GI Medical History: Reports: Gastroesophageal Reflux Disease - rarely Past Surgical History Past Surgical History: Reports: Appendectomy, Cardiac Catheterization - Stent placed, Cholecystectomy, Coronary Artery Bypass Graft - 5 vessels Social History Information Source: Patient Lives with: Spouse/Significant other Smoking Status: Never Smoker Frequency of Alcohol Use: None Hx Recreational Drug Use: No Hx Prescription Drug Abuse: No - Advance Directive Resuscitation Status: Full Code Family History Family History: CAD - Grandmother, DM - Grandmother Parental Family History Reviewed: Yes Children Family History Reviewed: Yes Sibling(s) Family History Reviewed.: Yes Medication/Allergy Home Medications: Clopidogrel Bisulfate [Plavix 75 mg Tablet] 75 mg PO DAILY 09/04/16 Gabapentin [Neurontin 300 mg Capsule] 300 mg PO Q8 09/04/16 Insulin Aspart [Novolog Flexpen] 40 units SUBCUT ACP PRN 09/04/16 Lisinopril [Prinivil] 20 mg PO DAILY 09/04/16 Metformin HCl [Metformin HCl ER] 500 mg PO DAILY 09/04/16 Metoprolol Succinate [Toprol XL 100 mg Tablet] 100 mg PO DAILY 09/04/16 Simvastatin 40 mg PO QHS 09/04/16 Triamcinolone Acetonide [Aristocort 0.1% Cream] 1 applic TOP BID 09/04/16 Allergies/Adverse Reactions: No Known Allergies Allergy (Verified 09/04/16 13:04) Review of Systems All systems: reviewed and no additional remarkable complaints except as stated Review of Systems: Constitutional: ABSENT: chills, fatigue, headache(s), weight gain, weight loss ; patient has been having fevers Eyes: ABSENT: visual disturbances Ears: ABSENT: hearing changes Cardiovascular: ABSENT: chest pain, dyspnea on exertion, edema, orthropnea, palpitations Respiratory: ABSENT: cough, dyspnea, hemoptysis Gastrointestinal: ABSENT: abdominal pain, constipation, diarrhea, hematemesis, hematochezia, nausea, vomiting Genitourinary: ABSENT: dysuria, hematuria; admits to decreased or no urine output today. Musculoskeletal: ABSENT: joint swelling Integumentary: Posterior left lower extremity rash, swelling and pain Neurological: ABSENT: abnormal gait, abnormal speech, confusion, dizziness, focal weakness, numbness, syncope Psychiatric: ABSENT: anxiety, depression Endocrine: ABSENT: cold intolerance, heat intolerance, polydipsia, polyuria Hematologic/Lymphatic: ABSENT: easy bleeding, easy bruising, lymphadenopathy Physical Exam Vital Signs: Temp Pulse Resp BP Pulse Ox 99.2 F 78 16 116/51 L 94 09/07/16 12:22 09/07/16 12:22 09/07/16 12:22 09/07/16 12:22 09/07/16 12:22 Intake & Output 09/06/16 09/07/16 09/08/16 06:59 06:59 06:59 Intake Total 2300 2808 810 Balance 2300 2808 810 Weight 112.6 kg Exam: General appearance: no acute distress, cooperative, well-developed, well- nourished Head exam: PRESENT: atraumatic, normocephalic Eye exam: PRESENT: Conjunctiva Otis, EOMI, PERRLA. ABSENT: conjunctival injection, scleral icterus Mouth exam: PRESENT: moist, neck supple, tongue midline Neck exam: PRESENT: full ROM. ABSENT: carotid bruit, JVD, lymphadenopathy, thyromegaly Respiratory exam: PRESENT: clear to auscultation bilaterally. ABSENT: rales, rhonchi, stridor, wheezes Cardiovascular exam: PRESENT: RRR, +S1, +S2. ABSENT: systolic murmur Pulses: PRESENT: normal radial pulses, normal dorsalis pedis pulses GI/Abdominal exam: PRESENT: normal bowel sounds, soft. ABSENT: guarding, mass, tenderness Rectal exam: deferred Extremities exam: PRESENT: full ROM. Bilateral lower extremity pitting pedal edema-grade 1 on the right and grade 2 on the left Musculoskeletal: PRESENT: full ROM. ABSENT: deformity Neurological exam: PRESENT: alert, Awake, Oriented to person, Oriented to place , Oriented to time, reflexes normal, CN II-XII grossly intact. ABSENT: motor sensory deficit Psychiatric exam: PRESENT: appropriate affect, normal mood. ABSENT: homicidal ideation, suicidal ideation Skin exam: PRESENT: intact, dry, warm, he has left lower extremity erythematous papulovesicular rash with associated tenderness to touch and swelling. Results Laboratory Results: 09/07/16 04:38 09/07/16 04:38 09/07/16 09/07/16 04:38 04:38 WBC 7.6 RBC 4.28 L Hgb 12.8 L Hct 38.1 MCV 89 MCH 29.9 MCHC 33.5 RDW 13.6 Plt Count 151 Seg Neutrophils % 65.9 Lymphocytes % 21.1 Monocytes % 10.6 Eosinophils % 2.3 Basophils % 0.1 Absolute Neutrophils 5.0 Absolute Lymphocytes 1.6 Absolute Monocytes 0.8 Absolute Eosinophils 0.2 Absolute Basophils 0.0 Sodium 136.3 L Potassium 3.7 Chloride 97 L Carbon Dioxide 27 Anion Gap 12 BUN 24 H Creatinine 2.40 H Est GFR ( Amer) 33 L Est GFR (Non-Af Amer) 27 L Glucose 194 H Calcium 8.7 Impressions: Chest X-Ray 09/04/16 15:12 IMPRESSION: NO SIGNIFICANT RADIOGRAPHIC FINDING IN THE CHEST. Lower Extremity CT 09/05/16 00:00 IMPRESSION: DIFFUSE EDEMA/ INFLAMMATION IN THE SUBCUTANEOUS FATTY TISSUES. DIFFUSE SKIN THICKENING. NO SOFT TISSUE ABSCESS. NO SIGNIFICANT BONY FINDINGS. Assessment & Plan - Diagnosis (1) Acute kidney injury Is this a current diagnosis for this admission?: YesPlan: Patient has been oligo-anuric today. However the bladder scanner reveals that the patient has significant urinary retention. The other most likely possibility of the cause of the patient's AK I is contrast nephropathy secondary to the contrast given 2 days ago in conjunction with other nephrotoxins including diuretics Lasix, ANDRES inhibitors, and current infection. All of this has been discontinued currently. Patient's kidney function is been deteriorating at the rapid pace at this point. However patient does not have any uremic symptoms. He does have symptoms of fluid retention which was present since admission anyways. We are going to do a stat kidney ultrasound, through the Madsen catheter, send for urinalysis, urine sodium, and urine creatinine. Continue with current IV fluids that monitor the patient's respiratory status. Decrease if the patient starting to have respiratory distress distress. Continue to monitor the patient 's kidney function and electrolytes. Strict intake and output. Patient does not need any renal replacement therapy. Or if it continues to deteriorate progressively he might need it. I discussed this possibility with the patient and patient is agreeable to proceed if necessary. Avoid further nephrotoxic agents. Adjust dose of antibiotics according to the patient's kidney function. (2) Contrast dye induced nephropathy Is this a current diagnosis for this admission?: Yes (3) Urinary retention Is this a current diagnosis for this admission?: YesPlan: Insert and maintain Madsen catheter for now. (4) SIRS (systemic inflammatory response syndrome) Is this a current diagnosis for this admission?: Yes (5) Left leg cellulitis Is this a current diagnosis for this admission?: Yes (6) Coronary artery disease Is this a current diagnosis for this admission?: Yes (7) Edema Is this a current diagnosis for this admission?: Yes (8) Uncontrolled diabetes mellitus Qualifiers: Diabetes mellitus type: type 1 Diabetes mellitus complication status: with skin complications Is this a current diagnosis for this admission?: Yes - Notes Notes: Thank you very much for this consultation. Discussed orders with the patient's nurse. I will follow the patient with you. - Time Time Spent: Greater than 70 Minutes
--- NOTE | 2016-09-07 17:48 | PDOC PROGRESS REPORT ---
Subjective Progress Note for:: 09/07/16 Subjective:: Patient reports his leg is not really improved over yesterday. States that the swelling is slightly better. Patient reports he hasn't been urinating that much. Patient , daughter, and grandson present at my examination. Patient denies fever, chills, chest pain, shortness of breath, nausea, vomiting , diarrhea. Physical Exam Vital Signs: Temp Pulse Resp BP Pulse Ox 98.2 F 67 16 112/43 L 94 09/07/16 03:20 09/07/16 03:20 09/07/16 03:20 09/07/16 03:20 09/07/16 03:20 Intake & Output 09/06/16 09/07/16 09/08/16 06:59 06:59 06:59 Intake Total 2300 2808 Balance 2300 2808 Weight 112.6 kg Exam: GENERAL: Appears well, no acute distress HEENT: Normocephalic, no scleral icterus, conjunctiva clear, EOEM intact, PERRLA , moist mucous membranes NECK: trachea midline, no JVD RESPIRATORY: Clear to auscultation, no wheezes/rhonchi CARDIAC: Regular rate and rhythm, no murmur/nanette/rub ABDOMEN: Soft, obese, no tenderness, no guarding, normal bowel sounds, negative Ruiz sign EXTREMITIES: asymmetric 3+Pitting edema in bilateral lower extremities NEUROLOGIC: Alert, oriented to person/place/time, normal speech, cranial nerves grossly intact, 5/5 strength in all extremities, tactile sensation intact in all extremities SKIN: Erythema/induration left lower extremity with some blistering extending from the midfoot to the knee PSYCHIATRIC: Normal mood, normal affect Results Laboratory Results: 09/07/16 04:38 09/07/16 04:38 09/07/16 09/07/16 04:38 04:38 WBC 7.6 RBC 4.28 L Hgb 12.8 L Hct 38.1 MCV 89 MCH 29.9 MCHC 33.5 RDW 13.6 Plt Count 151 Seg Neutrophils % 65.9 Lymphocytes % 21.1 Monocytes % 10.6 Eosinophils % 2.3 Basophils % 0.1 Absolute Neutrophils 5.0 Absolute Lymphocytes 1.6 Absolute Monocytes 0.8 Absolute Eosinophils 0.2 Absolute Basophils 0.0 Sodium 136.3 L Potassium 3.7 Chloride 97 L Carbon Dioxide 27 Anion Gap 12 BUN 24 H Creatinine 2.40 H Est GFR ( Amer) 33 L Est GFR (Non-Af Amer) 27 L Glucose 194 H Calcium 8.7 Impressions: Chest X-Ray 09/04/16 15:12 IMPRESSION: NO SIGNIFICANT RADIOGRAPHIC FINDING IN THE CHEST. Lower Extremity CT 09/05/16 00:00 IMPRESSION: DIFFUSE EDEMA/ INFLAMMATION IN THE SUBCUTANEOUS FATTY TISSUES. DIFFUSE SKIN THICKENING. NO SOFT TISSUE ABSCESS. NO SIGNIFICANT BONY FINDINGS. Assessment & Plan - Diagnosis (1) Left leg cellulitis Is this a current diagnosis for this admission?: YesPlan: Have changed patient antibiotics to Zyvox, clindamycin and continued Zosyn. Current cultures are negative (2) Acute kidney injury Is this a current diagnosis for this admission?: YesPlan: This is likely secondary to contrast nephropathy. Increase IVF and monitor as patient reports he normally takes torsemide at home. Obtain UA, renal ultrasound, and nephrology consult Reduce nephrotoxic agents by holding lisinopril, metformin, and vancomycin. (3) Coronary artery disease Is this a current diagnosis for this admission?: YesPlan: Hold lisinopril in light of current kidney injury. Denies chest pain Generic Name Dose Route Start Last Admin Trade Name Freq PRN Reason Stop Dose Admin Metoprolol Succinate 100 mg 09/05/16 10:00 09/07/16 09:52 Toprol Xl 50 Mg Tab.Sr PO 10/05/16 09:59 100 mg DAILY KALEB Aspirin 81 mg 09/05/16 10:00 09/07/16 09:53 Ecotrin 81 Mg Ec Tablet PO 10/05/16 09:59 81 mg DAILY KALEB (4) Thrombocytopenia Is this a current diagnosis for this admission?: Yes (5) Uncontrolled diabetes mellitus Is this a current diagnosis for this admission?: YesPlan: Hgb A1c 6.9 Continue Lantus and add 5units of Lispro pre-meals. (6) Morbid obesity with BMI of 40.0-44.9, adult Is this a current diagnosis for this admission?: YesPlan: Encourage weight loss. Dietary consult - Time Time Spent with patient: 25-34 minutes - Inpatient Certification Based on my medical assessment, after consideration of the patient's comorbidities, presenting symptoms, or acuity I expect that the services needed warrant INPATIENT care.: Yes I certify that my determination is in accordance with my understanding of Medicare's requirements for reasonable and necessary INPATIENT services [42 CFR 412.3e].: Yes Medical Necessity: Need For IV Fluids, Need for IV Antibiotics Post Hospital Care: D/C Engineering Surveyor Documentation
--- NOTE | 2016-09-07 18:35 | RADIOLOGY REPORT (SQ) ---
EXAM DESCRIPTION: U/S RETROPERITON (RENAL/AORTA) COMPLETED DATE/TIME: 09/07/2016 6:25 pm REASON FOR STUDY: marline COMPARISON: None. TECHNIQUE: Dynamic and static grayscale images acquired of the kidneys and bladder and recorded on P ACS. Additional selected color Doppler and spectral images recorded. LIMITATIONS: Study is somewhat limited because of body habitus and presence of a Madsen catheter in t he bladder. FINDINGS: RIGHT KIDNEY: Normal size, 12.7 cm. Normal echogenicity. No solid or suspicious masses. No hydronephrosis. No calcifications. LEFT KIDNEY: Normal size, 12.4 cm. Normal echogenicity. No solid or suspicious masses. No hydronephr osis. No calcifications. BLADDER: A Madsen catheter is present in the bladder. OTHER FINDINGS: None. IMPRESSION: NORMAL, SOMEWHAT LIMITED RENAL ULTRASOUND. TECHNICAL DOCUMENTATION: JOB ID: [id number] [employer]- All Rights Reserved
[2016-09-07 18:41] LABS: AMORPHOUS SEDIMENT,URINE TRACE /HPF; APPEARANCE,URINE TURBID; BILIRUBIN,URINE NEGATIVE (NEGATIVE); GLUCOSE, URINE NEGATIVE (NEGATIVE); KETONES,URINE NEGATIVE (NEGATIVE); LEUKOCYTE ESTERASE,URINE NEGATIVE (NEGATIVE); NITRITE,URINE NEGATIVE (NEGATIVE); PROTEIN,URINE 30 mg/dL (NEGATIVE); URINE SPECIFIC GRAVITY 1.013; UROBILINOGEN,URINE NEGATIVE mg/dL (<2.0)
[2016-09-07 19:04] LABS: URINE CREATININE 147.3 mg/dL (22-328)
[2016-09-07] MEDS: LACTOBACILLUS ACIDOPHILUS 250 MG TAB PO SCH (19:09)
[2016-09-07] MEDS: SENNOSIDES/DOCUSATE 8.6-50 MG 1 EACH TABLET PO SCH (21:36)
[2016-09-07] MEDS: SIMVASTATIN 40 MG TABLET PO SCH (21:36)
[2016-09-07] MEDS: NORMAL SALINE 1000 ML 1,000 ML IV PRN (21:36)
[2016-09-07] MEDS: INSULIN GLARGINE,HUM.REC.ANLOG 300 UNIT/3 ML INSULN.PEN SUBCUT SCH (22:41)
[2016-09-08] MEDS: LINEZOLID 300 ML IV SCH ×2 (00:27→12:49)
[2016-09-08] MEDS: PIPERACILLIN SODIUM/TAZOBACTAM 3.375 GM in NORMAL SALINE 100 ML IV SCH ×4 (00:27→18:41)
[2016-09-08 05:52] LABS: ABSOLUTE EOSINOPHILS # (AUTO) 0.3 10^3/uL (0.0-0.6); ABSOLUTE LYMPHOCYTES (AUTO) 0.9 10^3/uL (0.5-4.7); ABSOLUTE MONOCYTES (AUTO) 0.5 10^3/uL (0.1-1.4); ABSOLUTE NEUT (AUTO) 5.3 10^3/uL (1.7-8.2); EOSINOPHILS % (AUTO) 3.6 % (0-6); HEMATOCRIT 32.2 % (37.9-51.0); HEMOGLOBIN 10.9 g/dL (13.5-17.0); HGB HCT DIFFERENCE 0.5; LYMPHOCYTES % (AUTO) 12.5 % (13-45); MEAN CORPUSCULAR HEMOGLOBIN 29.8 pg (27.0-33.4); MEAN CORPUSCULAR HGB CONC 33.9 g/dL (32.0-36.0); MEAN CORPUSCULAR VOLUME 88 fl (80-97); MONOCYTES % (AUTO) 7.9 % (3-13); RED BLOOD COUNT 3.68 10^6/uL (4.35-5.55); RED CELL DISTRIBUTION WIDTH 13.3 % (11.5-14.0)
[2016-09-08] MEDS: CLINDAMYCIN 600 MG/D5W RTU 50 ML IV SCH ×3 (05:53→23:17)
[2016-09-08] MEDS: NORMAL SALINE 1000 ML 1,000 ML IV PRN (05:54)
[2016-09-08] MEDS: HEPARIN SOD (PORCINE) 5,000 UNIT/ML 1 ML SYRINGE SUBCUT SCH ×3 (05:54→23:19)
[2016-09-08] MEDS: GABAPENTIN 300 MG CAPSULE PO SCH ×3 (05:54→23:18)
[2016-09-08 06:27] LABS: ANION GAP 11 (5-19); BLOOD UREA NITROGEN 31 mg/dL (7-20); CALCIUM 7.8 mg/dL (8.4-10.2); CARBON DIOXIDE 23 mmol/L (22-30); CHLORIDE 99 mmol/L (98-107); CREATININE RESULT 3.98 mg/dL (0.52-1.25); GLUCOSE 268 mg/dL (75-110); MAGNESIUM 1.6 mg/dL (1.6-2.3); POTASSIUM 3.5 mmol/L (3.6-5.0); SODIUM 133.2 mmol/L (137-145)
[2016-09-08] MEDS: INSULIN LISPRO 100 UNIT/ML 3 ML VIAL SUBCUT PRN ×3 (08:50→17:06)
[2016-09-08] MEDS: INSULIN LISPRO 100 UNIT/ML 3 ML VIAL SUBCUT SCH ×3 (08:50→17:06)
[2016-09-08] MEDS: CLOPIDOGREL BISULFATE 75 MG TABLET PO SCH (10:26)
[2016-09-08] MEDS: LACTOBACILLUS ACIDOPHILUS 250 MG TAB PO SCH ×2 (10:26→18:36)
[2016-09-08] MEDS: ASPIRIN 81 MG TABLET, ENT COATED PO SCH (10:26)
[2016-09-08] MEDS: METOPROLOL SUCCINATE 50 MG TAB.SR.24H PO SCH (10:26)
[2016-09-08] MEDS ORDERED: INSULIN GLARGINE,HUM.REC.ANLOG 1,000 UNIT/10 ML UNIT SUBCUT ONE (10:43)
[2016-09-08] MEDS ORDERED: NORMAL SALINE 1000 ML 1,000 ML IV PRN (10:43)
[2016-09-08] MEDS ORDERED: BISACODYL 10 MG SUPP.RECT PR PRN (10:43)
[2016-09-08] MEDS ORDERED: BISACODYL 10 MG SUPP.RECT PR ONE (10:43)
[2016-09-08] MEDS ORDERED: POTASSIUM CHLORIDE 10 MEQ TABLET.SA PO ONE (10:45)
[2016-09-08] MEDS ORDERED: INSULIN GLARGINE,HUM.REC.ANLOG 300 UNIT/3 ML INSULN.PEN SUBCUT ONE (13:00)
[2016-09-08] MEDS: DOCUSATE SODIUM 100 MG CAPSULE PO SCH (18:41)
--- NOTE | 2016-09-08 19:35 | PDOC PROGRESS REPORT ---
Subjective Progress Note for:: 09/08/16 Subjective:: Patient reports that he feels that his edema and his left lower extremity has improved. He reports his this cellulitis is appearing to improve as well. Patient denies chest pain, shortness of breath, abdominal pain, nausea, vomiting, fevers, chills, diarrhea, headache, new onset weakness. Reports he is still not had a bowel movement. Nursing reports they are concerned about his safety as patient continues to get up without assistance. Physical Exam Vital Signs: Temp Pulse Resp BP Pulse Ox 99.9 F 76 18 112/48 L 94 09/08/16 03:50 09/08/16 03:50 09/08/16 03:50 09/08/16 03:50 09/08/16 03:50 Intake & Output 09/07/16 09/08/16 09/09/16 06:59 06:59 06:59 Intake Total 2808 5669 Output Total 650 Balance 2808 5019 Weight 112.6 kg Exam: GENERAL: Appears well, no acute distress HEENT: Normocephalic, no scleral icterus, conjunctiva clear, EOEM intact, PERRLA , moist mucous membranes NECK: trachea midline, no JVD RESPIRATORY: Inspiratory and expiratory wheezing CARDIAC: Regular rate and rhythm, no murmur/nanette/rub ABDOMEN: Soft, obese, no tenderness, no guarding, normal bowel sounds, negative Ruiz sign EXTREMITIES: asymmetric 2+Pitting edema in bilateral lower extremities NEUROLOGIC: Alert, oriented to person/place/time, normal speech, cranial nerves grossly intact, 5/5 strength in all extremities, tactile sensation intact in all extremities SKIN: Erythema/induration left lower extremity with some blistering extending from the midfoot to the knee areas of clearing near ankle PSYCHIATRIC: Normal mood, normal affect Results Laboratory Results: 09/08/16 05:22 09/08/16 05:22 09/07/16 09/08/16 09/08/16 18:01 05:22 05:22 WBC 7.0 RBC 3.68 L Hgb 10.9 L Hct 32.2 L MCV 88 MCH 29.8 MCHC 33.9 RDW 13.3 Plt Count 147 L Seg Neutrophils % 76.0 Lymphocytes % 12.5 L Monocytes % 7.9 Eosinophils % 3.6 Basophils % 0.0 Absolute Neutrophils 5.3 Absolute Lymphocytes 0.9 Absolute Monocytes 0.5 Absolute Eosinophils 0.3 Absolute Basophils 0.0 Sodium 133.2 L Potassium 3.5 L Chloride 99 Carbon Dioxide 23 Anion Gap 11 BUN 31 H Creatinine 3.98 H Est GFR ( Amer) 18 L Est GFR (Non-Af Amer) 15 L Glucose 268 H Calcium 7.8 L Magnesium 1.6 Urine Color YELLOW Urine Appearance TURBID Urine pH 5.0 Ur Specific [place] 1.013 Urine Protein 30 H Urine Glucose (UA) NEGATIVE Urine Ketones NEGATIVE Urine Blood SMALL H Urine Nitrite NEGATIVE Ur Leukocyte Esterase NEGATIVE Urine WBC (Auto) 1 Urine RBC (Auto) 3 Impressions: Chest X-Ray 09/04/16 15:12 IMPRESSION: NO SIGNIFICANT RADIOGRAPHIC FINDING IN THE CHEST. Lower Extremity CT 09/05/16 00:00 IMPRESSION: DIFFUSE EDEMA/ INFLAMMATION IN THE SUBCUTANEOUS FATTY TISSUES. DIFFUSE SKIN THICKENING. NO SOFT TISSUE ABSCESS. NO SIGNIFICANT BONY FINDINGS. Renal Ultrasound 09/07/16 00:00 IMPRESSION: NORMAL, SOMEWHAT LIMITED RENAL ULTRASOUND. Assessment & Plan - Diagnosis (1) Sepsis affecting skin Is this a current diagnosis for this admission?: YesPlan: 2/2 to cellulitis. Continue patient on Zyvox, clindamycin, and Zosyn (2) Left leg cellulitis Is this a current diagnosis for this admission?: YesPlan: Patient antibiotics to Zyvox, clindamycin and continued Zosyn. Current cultures are negative (3) Acute kidney injury Is this a current diagnosis for this admission?: YesPlan: This is likely secondary to contrast nephropathy, Although patient had a period of hypotension, and this could be associated with ATN. Patient appears to be becoming volume overloaded, and will decrease IV fluids to 150 mL/h. FeNa reveals patient is prerenal 0.7%. Renal ultrasound is normal. Appreciate nephrology input. Reduce nephrotoxic agents by holding lisinopril, metformin, and vancomycin. (4) Coronary artery disease Is this a current diagnosis for this admission?: YesPlan: Hold lisinopril in light of current kidney injury. Denies chest pain On metoprolol and aspirin (5) Thrombocytopenia Is this a current diagnosis for this admission?: Yes (6) Uncontrolled diabetes mellitus Qualifiers: Diabetes mellitus type: type 1 Diabetes mellitus complication status: with skin complications Is this a current diagnosis for this admission?: YesPlan: Hgb A1c 6.9 Increase Lantus to 60 units subcu twice daily and add 15units of Lispro pre- meals. (7) Morbid obesity with BMI of 40.0-44.9, adult Is this a current diagnosis for this admission?: Yes - Time Time Spent with patient: 35 or more minutes Medications reviewed and adjusted accordingly: Yes
--- NOTE | 2016-09-08 20:12 | PDOC PROGRESS REPORT ---
Subjective Progress Note for:: 09/08/16 Subjective:: Patient claims that he feels like his leg swelling is better. His kidney ultrasound yesterday did not show any acute obstruction. He is now producing a good amount of urine with Madsen catheter. He is eating good and drinking fluids. Denies any shortness of breath. Physical Exam Vital Signs: Temp Pulse Resp BP Pulse Ox 98.4 F 74 20 121/52 L 93 09/08/16 10:41 09/08/16 10:41 09/08/16 08:06 09/08/16 10:41 09/08/16 10:41 Intake & Output 09/07/16 09/08/16 09/09/16 06:59 06:59 06:59 Intake Total 2808 5669 330 Output Total 650 400 Balance 2808 5019 -70 Weight 112.6 kg Exam: General appearance: PRESENT: no acute distress, cooperative, well-developed, well-nourished Head exam: PRESENT: atraumatic, normocephalic Eye exam: PRESENT: conjunctiva pink, PERRLA. ABSENT: scleral icterus Neck exam: ABSENT: JVD Respiratory exam: PRESENT: Normal breath sounds. ABSENT: crackles, rales, rhonchi, unlabored, wheezes Cardiovascular exam: PRESENT: Regular rate rhythm -+S1, +S2. ABSENT: diastolic murmur, systolic murmur GI/Abdominal exam: PRESENT: normal bowel sounds, soft. ABSENT: guarding, mass, tenderness Extremities exam: Bilateral lower extremity pitting edema, left leg with grade 2 -3 and right leg with grade 1 edema Neurological exam: PRESENT: alert, awake, oriented to person, place and time. Skin exam: PRESENT: dry, warm, and still has the erythematous papular vesicular rash around his left lower extremity. Results Laboratory Results: 09/08/16 05:22 09/08/16 05:22 09/08/16 09/08/16 05:22 05:22 WBC 7.0 RBC 3.68 L Hgb 10.9 L Hct 32.2 L MCV 88 MCH 29.8 MCHC 33.9 RDW 13.3 Plt Count 147 L Seg Neutrophils % 76.0 Lymphocytes % 12.5 L Monocytes % 7.9 Eosinophils % 3.6 Basophils % 0.0 Absolute Neutrophils 5.3 Absolute Lymphocytes 0.9 Absolute Monocytes 0.5 Absolute Eosinophils 0.3 Absolute Basophils 0.0 Sodium 133.2 L Potassium 3.5 L Chloride 99 Carbon Dioxide 23 Anion Gap 11 BUN 31 H Creatinine 3.98 H Est GFR ( Amer) 18 L Est GFR (Non-Af Amer) 15 L Glucose 268 H Calcium 7.8 L Magnesium 1.6 09/08/16 05:22 Creatine Kinase 575 H Impressions: Chest X-Ray 09/04/16 15:12 IMPRESSION: NO SIGNIFICANT RADIOGRAPHIC FINDING IN THE CHEST. Lower Extremity CT 09/05/16 00:00 IMPRESSION: DIFFUSE EDEMA/ INFLAMMATION IN THE SUBCUTANEOUS FATTY TISSUES. DIFFUSE SKIN THICKENING. NO SOFT TISSUE ABSCESS. NO SIGNIFICANT BONY FINDINGS. Renal Ultrasound 09/07/16 00:00 IMPRESSION: NORMAL, SOMEWHAT LIMITED RENAL ULTRASOUND. Assessment & Plan - Diagnosis (1) Acute kidney injury Is this a current diagnosis for this admission?: YesPlan: Patient has better urine output today Madsen catheter insertion. He did have some urinary retention yesterday. The other most likely possibility of the cause of the patient's AK I is contrast nephropathy secondary to the contrast given 2 days ago in conjunction with other nephrotoxins including diuretics Lasix, ANDRES inhibitors, and current infection. All of this has been discontinued currently. Patient's kidney function is been deteriorating at the rapid pace at this point. However patient does not have any uremic symptoms. He does have symptoms of fluid retention which was present since admission anyways. The ultrasound which did not show any hydronephrosis. Patient's kidney function continues to get worse today. Patient does not need any renal replacement therapy. If it continues to deteriorate progressively he might need it. I discussed this possibility with the patient and patient is agreeable to proceed if necessary. Avoid further nephrotoxic agents. Adjust dose of antibiotics according to the patient's kidney function. (2) Contrast dye induced nephropathy Is this a current diagnosis for this admission?: Yes (3) Urinary retention Is this a current diagnosis for this admission?: YesPlan: Insert and maintain Madsen catheter for now. (4) SIRS (systemic inflammatory response syndrome) Is this a current diagnosis for this admission?: Yes (5) Left leg cellulitis Is this a current diagnosis for this admission?: Yes (6) Coronary artery disease Is this a current diagnosis for this admission?: Yes (7) Edema Is this a current diagnosis for this admission?: Yes (8) Uncontrolled diabetes mellitus Qualifiers: Diabetes mellitus type: type 1 Diabetes mellitus complication status: with skin complications Is this a current diagnosis for this admission?: Yes - Time Time with patient: 15-25 minutes
[2016-09-08] MEDS: SIMVASTATIN 40 MG TABLET PO SCH (23:18)
[2016-09-08] MEDS: SENNOSIDES/DOCUSATE 8.6-50 MG 1 EACH TABLET PO SCH (23:19)
[2016-09-08] MEDS: INSULIN GLARGINE,HUM.REC.ANLOG 300 UNIT/3 ML INSULN.PEN SUBCUT SCH (23:19)
[2016-09-09] MEDS: PIPERACILLIN SODIUM/TAZOBACTAM 3.375 GM in NORMAL SALINE 100 ML IV SCH ×3 (00:10→12:36)
[2016-09-09] MEDS: LINEZOLID 300 ML IV SCH ×2 (01:07→12:36)
[2016-09-09] MEDS: CLINDAMYCIN 600 MG/D5W RTU 50 ML IV SCH ×3 (05:37→22:09)
[2016-09-09] MEDS: GABAPENTIN 300 MG CAPSULE PO SCH ×3 (05:38→22:11)
[2016-09-09] MEDS: HEPARIN SOD (PORCINE) 5,000 UNIT/ML 1 ML SYRINGE SUBCUT SCH ×2 (05:38→14:56)
[2016-09-09 06:29] LABS: ANION GAP 13 (5-19); BLOOD UREA NITROGEN 31 mg/dL (7-20); CARBON DIOXIDE 21 mmol/L (22-30); CHLORIDE 101 mmol/L (98-107); CREATININE RESULT 4.59 mg/dL (0.52-1.25); GLUCOSE 146 mg/dL (75-110); MAGNESIUM 1.7 mg/dL (1.6-2.3); PHOSPHORUS 5.2 mg/dL (2.5-4.5); POTASSIUM 3.7 mmol/L (3.6-5.0)
[2016-09-09 06:37] LABS: ABSOLUTE EOSINOPHILS # (AUTO) 0.4 10^3/uL (0.0-0.6); ABSOLUTE MONOCYTES (AUTO) 0.6 10^3/uL (0.1-1.4); BASOPHILS % (AUTO) 0.1 % (0-2); EOSINOPHILS % (AUTO) 5.8 % (0-6); HEMATOCRIT 32.6 % (37.9-51.0); HEMOGLOBIN 11.1 g/dL (13.5-17.0); HGB HCT DIFFERENCE 0.7; LYMPHOCYTES % (AUTO) 13.8 % (13-45); MEAN CORPUSCULAR HEMOGLOBIN 29.9 pg (27.0-33.4); MEAN CORPUSCULAR HGB CONC 34.1 g/dL (32.0-36.0); MEAN CORPUSCULAR VOLUME 88 fl (80-97); MONOCYTES % (AUTO) 8.4 % (3-13); RED BLOOD COUNT 3.72 10^6/uL (4.35-5.55); RED CELL DISTRIBUTION WIDTH 13.5 % (11.5-14.0); SEGMENTED NEUTROPHILS % (AUTO) 71.9 % (42-78)
[2016-09-09] MEDS ORDERED: INSULIN GLARGINE,HUM.REC.ANLOG 1,000 UNIT/10 ML UNIT SUBCUT SCH (08:00)
[2016-09-09] MEDS: INSULIN LISPRO 100 UNIT/ML 3 ML VIAL SUBCUT SCH ×3 (08:12→16:53)
[2016-09-09] MEDS: INSULIN LISPRO 100 UNIT/ML 3 ML VIAL SUBCUT PRN ×4 (08:12→22:10)
[2016-09-09] MEDS: INSULIN GLARGINE,HUM.REC.ANLOG 300 UNIT/3 ML INSULN.PEN SUBCUT SCH ×2 (08:12→22:09)
[2016-09-09] MEDS: DOCUSATE SODIUM 100 MG CAPSULE PO SCH (10:14)
[2016-09-09] MEDS: METOPROLOL SUCCINATE 50 MG TAB.SR.24H PO SCH (10:14)
[2016-09-09] MEDS: ASPIRIN 81 MG TABLET, ENT COATED PO SCH (10:15)
[2016-09-09] MEDS: LACTOBACILLUS ACIDOPHILUS 250 MG TAB PO SCH ×2 (10:15→16:53)
[2016-09-09] MEDS: CLOPIDOGREL BISULFATE 75 MG TABLET PO SCH (10:15)
[2016-09-09] MEDS ORDERED: HYDRALAZINE HCL INJ/PF 20 MG/1 ML SDV IV PRN (11:18)
[2016-09-09] MEDS ORDERED: BISACODYL 10 MG SUPP.RECT PR PRN (11:19)
[2016-09-09] MEDS ORDERED: NORMAL SALINE 1000 ML 1,000 ML IV PRN ×2 (11:22→18:04)
[2016-09-09] MEDS ORDERED: BUMETANIDE INJ/PF 1 MG/4 ML SDV IV ONE (12:30)
--- NOTE | 2016-09-09 16:43 | PDOC PROGRESS REPORT ---
Subjective Progress Note for:: 09/09/16 Subjective:: Patient reports that he feels that his left lower extremity has improved somewhat. He reports some shortness of breath/wheezing. He reports his this cellulitis is appearing to improve as well. Patient denies chest pain, abdominal pain, nausea, vomiting, fevers, chills, headache, new onset weakness. Reports he is having diarrhea without hematochezia or melena. Physical Exam Vital Signs: Temp Pulse Resp BP Pulse Ox 99.1 F 76 22 H 117/49 L 91 L 09/08/16 23:41 09/08/16 23:41 09/08/16 23:41 09/08/16 23:41 09/08/16 23:41 Intake & Output 09/08/16 09/09/16 09/10/16 06:59 06:59 06:59 Intake Total 5669 1470 Output Total 650 1600 Balance 5019 -130 Exam: GENERAL: no acute distress HEENT: Normocephalic, no scleral icterus, conjunctiva clear, EOEM intact, PERRLA , moist mucous membranes NECK: trachea midline, no JVD RESPIRATORY: Bilateral bibasilar rales CARDIAC: Regular rate and rhythm, no murmur/nanette/rub ABDOMEN: Soft, obese, no tenderness, no guarding, normal bowel sounds, negative Ruiz sign EXTREMITIES: asymmetric 2+Pitting edema in bilateral lower extremities NEUROLOGIC: Alert, oriented to person/place/time, normal speech, cranial nerves grossly intact, tactile sensation intact in all extremities SKIN: Erythema/induration left lower extremity with some blistering with hemorrhage and yellow exudate, extending from the midfoot to the knee areas of clearing near ankle, PSYCHIATRIC: Normal mood, normal affect Results Laboratory Results: 09/09/16 04:16 09/09/16 04:16 09/09/16 09/09/16 04:16 04:16 WBC 7.0 RBC 3.72 L Hgb 11.1 L Hct 32.6 L MCV 88 MCH 29.9 MCHC 34.1 RDW 13.5 Plt Count 177 Seg Neutrophils % 71.9 Lymphocytes % 13.8 Monocytes % 8.4 Eosinophils % 5.8 Basophils % 0.1 Absolute Neutrophils 5.0 Absolute Lymphocytes 1.0 Absolute Monocytes 0.6 Absolute Eosinophils 0.4 Absolute Basophils 0.0 Sodium 135.0 L Potassium 3.7 Chloride 101 Carbon Dioxide 21 L Anion Gap 13 BUN 31 H Creatinine 4.59 H Est GFR ( Amer) 16 L Est GFR (Non-Af Amer) 13 L Glucose 146 H Calcium 8.0 L Phosphorus 5.2 H Magnesium 1.7 09/08/16 05:22 Creatine Kinase 575 H Impressions: Chest X-Ray 09/04/16 15:12 IMPRESSION: NO SIGNIFICANT RADIOGRAPHIC FINDING IN THE CHEST. Lower Extremity CT 09/05/16 00:00 IMPRESSION: DIFFUSE EDEMA/ INFLAMMATION IN THE SUBCUTANEOUS FATTY TISSUES. DIFFUSE SKIN THICKENING. NO SOFT TISSUE ABSCESS. NO SIGNIFICANT BONY FINDINGS. Renal Ultrasound 09/07/16 00:00 IMPRESSION: NORMAL, SOMEWHAT LIMITED RENAL ULTRASOUND. Assessment & Plan - Diagnosis (1) Sepsis affecting skin Is this a current diagnosis for this admission?: YesPlan: 2/2 to cellulitis. Patient on Zyvox, clindamycin, and Zosyn (2) Left leg cellulitis Is this a current diagnosis for this admission?: YesPlan: Patient antibiotics to Zyvox, clindamycin and continued Zosyn. Current cultures are negative Tmax last 24 hrs 99.4. (3) Acute kidney injury Is this a current diagnosis for this admission?: YesPlan: This is likely secondary to contrast nephropathy, Although patient had a period of hypotension, and this could be associated with ATN. Patient appears to be becoming volume overloaded, and will decrease IV fluids to 100 mL/h. Initial FeNa reveals patient is prerenal 0.7%. Renal ultrasound is normal. Appreciate nephrology input. Reduce nephrotoxic agents by holding lisinopril, metformin, lasix, and vancomycin. In light of patient current volume overload, will give Bumex 2mg IV x1. Creatinine is yet to plateau. (4) Coronary artery disease Is this a current diagnosis for this admission?: YesPlan: Hold lisinopril in light of current kidney injury. Denies chest pain On metoprolol and aspirin (5) Thrombocytopenia Is this a current diagnosis for this admission?: Yes (6) Uncontrolled diabetes mellitus Qualifiers: Diabetes mellitus type: type 1 Diabetes mellitus complication status: with skin complications Is this a current diagnosis for this admission?: YesPlan: Hgb A1c 6.9 Much improved glucose with increase in Lantus and addition of lispro. Lantus 60 units subcu twice daily and 15units of Lispro pre-meals in addition to SSI. (7) Morbid obesity with BMI of 40.0-44.9, adult Is this a current diagnosis for this admission?: Yes - Time Time Spent with patient: 25-34 minutes Medications reviewed and adjusted accordingly: Yes - Inpatient Certification Based on my medical assessment, after consideration of the patient's comorbidities, presenting symptoms, or acuity I expect that the services needed warrant INPATIENT care.: Yes I certify that my determination is in accordance with my understanding of Medicare's requirements for reasonable and necessary INPATIENT services [42 CFR 412.3e].: Yes Medical Necessity: Failure to Improve With Outpatient Therapy, Need For IV Fluids, Need for IV Antibiotics, Risk of Complication if Not Cared For in Hospital Post Hospital Care: D/C Open Cut Examiner Documentation
--- NOTE | 2016-09-09 18:13 | PDOC PROGRESS REPORT ---
Subjective Progress Note for:: 09/09/16 Subjective:: Patient does not have any new complaints today. However he seems to be having extra fluid retention today. Dr. Duff decreased the fluid rate to 100 mL/min and gave the patient Bumex 2 mg IV 1 dose. He is still making a decent amount of urine output now. He thinks his lower extremity swelling and inflammation is getting better slowly. Physical Exam Vital Signs: Temp Pulse Resp BP Pulse Ox 98.2 F 72 17 155/44 H 90 L 09/09/16 16:10 09/09/16 16:10 09/09/16 16:10 09/09/16 16:10 09/09/16 16:10 Intake & Output 09/08/16 09/09/16 09/10/16 06:59 06:59 06:59 Intake Total 5669 1470 720 Output Total 650 1600 300 Balance 5019 -130 420 Exam: General appearance: PRESENT: no acute distress, cooperative, well-developed, well-nourished Head exam: PRESENT: atraumatic, normocephalic Eye exam: PRESENT: conjunctiva pink, PERRLA. ABSENT: scleral icterus Neck exam: ABSENT: JVD Respiratory exam: PRESENT: Diminished breath sounds. ABSENT: crackles, rales, rhonchi, unlabored, wheezes Cardiovascular exam: PRESENT: Regular rate rhythm -+S1, +S2. Grade 2/6 systolic murmur ABSENT: diastolic murmur GI/Abdominal exam: PRESENT: normal bowel sounds, soft. ABSENT: guarding, mass, tenderness Extremities exam: Grade 2 bilateral lower extremity pitting edema, left greater than the right seems a little better Neurological exam: PRESENT: alert, awake, oriented to person, place and time. Skin exam: PRESENT: dry, warm, left lower extremity erythema with papular vesicular lesion seems to be slowly improving. However there seems to be a little bit more erythema on the upper right leg. Results Laboratory Results: 09/09/16 04:16 09/09/16 04:16 09/09/16 09/09/16 04:16 04:16 WBC 7.0 RBC 3.72 L Hgb 11.1 L Hct 32.6 L MCV 88 MCH 29.9 MCHC 34.1 RDW 13.5 Plt Count 177 Seg Neutrophils % 71.9 Lymphocytes % 13.8 Monocytes % 8.4 Eosinophils % 5.8 Basophils % 0.1 Absolute Neutrophils 5.0 Absolute Lymphocytes 1.0 Absolute Monocytes 0.6 Absolute Eosinophils 0.4 Absolute Basophils 0.0 Sodium 135.0 L Potassium 3.7 Chloride 101 Carbon Dioxide 21 L Anion Gap 13 BUN 31 H Creatinine 4.59 H Est GFR ( Amer) 16 L Est GFR (Non-Af Amer) 13 L Glucose 146 H Calcium 8.0 L Phosphorus 5.2 H Magnesium 1.7 09/04/16 15:30 Blood Blood Culture - Final NO GROWTH IN 5 DAYS 09/08/16 05:22 Creatine Kinase 575 H Impressions: Chest X-Ray 09/04/16 15:12 IMPRESSION: NO SIGNIFICANT RADIOGRAPHIC FINDING IN THE CHEST. Lower Extremity CT 09/05/16 00:00 IMPRESSION: DIFFUSE EDEMA/ INFLAMMATION IN THE SUBCUTANEOUS FATTY TISSUES. DIFFUSE SKIN THICKENING. NO SOFT TISSUE ABSCESS. NO SIGNIFICANT BONY FINDINGS. Renal Ultrasound 09/07/16 00:00 IMPRESSION: NORMAL, SOMEWHAT LIMITED RENAL ULTRASOUND. Assessment & Plan - Diagnosis (1) Acute kidney injury Is this a current diagnosis for this admission?: YesPlan: Patient has better urine output today Madsen catheter insertion. He did have some urinary retention yesterday. The other most likely possibility of the cause of the patient's AK I is contrast nephropathy secondary to the contrast given 2 days ago in conjunction with other nephrotoxins including diuretics Lasix, ANDRES inhibitors, and current infection. All of this has been discontinued currently. Patient's kidney function is been deteriorating at the rapid pace at this point. However patient does not have any uremic symptoms. He does have symptoms of fluid retention which was present since admission anyways. Today he seems to have more fluid retention. The ultrasound which did not show any hydronephrosis. Patient's kidney function continues to get worse today. Due to rapidly progressing deterioration of kidney function and fluid retention the patient will need acute renal replacement therapy. I spoke to the patient and his at bedside about starting hemodialysis tomorrow to help with volume and solute control. Discussed benefits and risks including bleeding, infection, and hemodynamic instability during dialysis treatment including cardiac arrest. Patient and understood and agreed to proceed. I also called Dr. Duff and informed her of my plan and she agreed. I did call the vascular surgeon Dr. Boothe for trialysis catheter placement for acute hemodialysis treatment tomorrow. He will placed dialysis catheter possibly tomorrow. I will place an order for hemodialysis treatment for tomorrow. Meanwhile we will decrease the patient's IV fluid rate to 60 mL/min. Avoid further nephrotoxic agents. Continue to hold lisinopril and metformin. May give diuretics as needed. (2) Contrast dye induced nephropathy Is this a current diagnosis for this admission?: Yes (3) Urinary retention Is this a current diagnosis for this admission?: YesPlan: Insert and maintain Madsen catheter for now. (4) SIRS (systemic inflammatory response syndrome) Is this a current diagnosis for this admission?: Yes (5) Left leg cellulitis Is this a current diagnosis for this admission?: Yes (6) Coronary artery disease Is this a current diagnosis for this admission?: Yes (7) Edema Is this a current diagnosis for this admission?: Yes (8) Uncontrolled diabetes mellitus Qualifiers: Diabetes mellitus type: type 1 Diabetes mellitus complication status: with skin complications Is this a current diagnosis for this admission?: Yes - Notes Notes: Plan discussed with the patient, his , Dr. Duff and the nurse taking care of the patient. - Time Time with patient: Greater than 35 minutes
[2016-09-09] MEDS ORDERED: LEVALBUTEROL HCL NEB 1.25 MG/3 ML AMPUL NEB ONE (18:30)
--- NOTE | 2016-09-09 19:27 | XCELERA REPORT ---
[address] [address] Transthoracic Echocardiogram Report Name: RUSSELL PARRA Age: 65 yrs Gender: Male : 1950 Patient Status: Inpatient Patient Location: [id number] Study Date: 09/09/2016 02:05 PM Height: 56 in Weight: 248 lb BSA: 1.9 m2 Procedure: A complete two-dimensional transthoracic echocardiogram was performed (2D, M-mode, spectral and color flow Doppler). The study was technically difficult with many images being suboptimal in quality. Reason For Study: chf Ordering Physician: KASSI CORNELIUS Performed By: Armida Steele Interpretation Summary The study was technically difficult with many images being suboptimal in quality. The left ventricular ejection fraction is normal. There is mild concentric left ventricular hypertrophy. Doppler measurements suggest pseudonormalized left ventricular relaxation, which is associated with grade II/IV or mild to moderate diastolic dysfunction The left ventricle is grossly normal size. Wall motion cannot be accurately commented on, but no definite regional wall motion abnormalities noted. Not all wall segments were well visualized. The right ventricular systolic function is mildly reduced. The right ventricle appears to be hypertrophied The right ventricle is moderately dilated. The left atrium is moderately dilated. The right atrium is mildly dilated. There is a mild amount of mitral regurgitation There is no mitral valve stenosis. There is no aortic valve stenosis No aortic regurgitation is present. There is a mild amount of tricuspid regurgitation There is moderate pulmonary hypertension by echo Right ventricular systolic pressure is estimated to be elevated at 50- 60mmHg. The aortic root is not well visualized. The inferior vena cava appeared normal and decreased > 50% with respiration (RAP 5-10 mmHg) There is no pericardial effusion. MMode/2D Measurements \T\ Calculations RVDd: 4.6 cm LVIDd: 4.9 cm FS: 42.3 % Ao root diam: 3.2 cm IVSd: 1.1 cm LVIDs: 2.8 cm EDV(Teich): 112.6 ml LVPWd: 1.1 cm ESV(Teich): 30.1 ml Ao root area: 7.9 cm2 EF(Teich): 73.2 % Doppler Measurements \T\ Calculations MV E max poly: MV dec slope: Ao V2 max: LV V1 max P.9 cm/sec 136.1 cm/sec 2.7 mmHg MV A max poly: 757.3 cm/sec2 Ao max PG: LV V1 max: 67.3 cm/sec MV dec time: 7.4 mmHg 81.6 cm/sec MV E/A: 1.8 0.16 sec PA V2 max: PI end-d poly: TR max poly: 111.5 cm/sec 109.3 cm/sec 319.9 cm/sec PA max P.0 mmHg TR max P.6 mmHg Left Ventricle The left ventricle is grossly normal size. There is mild concentric left ventricular hypertrophy. The left ventricular ejection fraction is normal. Doppler measurements suggest pseudonormalized left ventricular relaxation, which is associated with grade II/IV or mild to moderate diastolic dysfunction. Wall motion cannot be accurately commented on, but no definite regional wall motion abnormalities noted. Not all wall segments were well visualized. Right Ventricle The right ventricle is moderately dilated. The right ventricle appears to be hypertrophied. The right ventricular systolic function is mildly reduced. Atria The right atrium is mildly dilated. The left atrium is moderately dilated. Interarterial septum not well visualized and not well dopplered. Cannot comment on ASD/PFO presence. Mitral Valve The mitral valve leaflets are sclerotic, but show no functional abnormalities. There is no mitral valve stenosis. There is a mild amount of mitral regurgitation. Aortic Valve The aortic valve is not well visualized secondary to technical limitations. There is no aortic valve stenosis. No aortic regurgitation is present. Tricuspid Valve The tricuspid valve is not well visualized, but is grossly normal. There is no tricuspid stenosis. There is a mild amount of tricuspid regurgitation. There is moderate pulmonary hypertension by echo. Right ventricular systolic pressure is estimated to be elevated at 50-60mmHg. Pulmonic Valve The pulmonic valve is not well visualized. Great Vessels The aortic root is not well visualized. The inferior vena cava appeared normal and decreased > 50% with respiration (RAP 5-10 mmHg). Effusions There is no pericardial effusion. : KASSI CORNELIUS > Nydia Parker
[2016-09-09] MEDS: OXYCODONE HCL IR 5 MG TABLET PO PRN (22:10)
[2016-09-09] MEDS: SIMVASTATIN 40 MG TABLET PO SCH (22:11)
[2016-09-09] MEDS: PIPERACILLIN SODIUM/TAZOBACTAM 2.25 GM in NORMAL SALINE 50 ML IV SCH (22:12)
[2016-09-09] MEDS: LINEZOLID 600 MG TABLET PO SCH (22:59)
[2016-09-10] MEDS ORDERED: HEPARIN SOD (PORCINE) 1,000 UNIT/ML 10 ML VIAL IV PRN (05:00)
[2016-09-10] MEDS: GABAPENTIN 300 MG CAPSULE PO SCH ×3 (05:49→21:31)
[2016-09-10] MEDS: CLINDAMYCIN 600 MG/D5W RTU 50 ML IV SCH ×3 (05:49→21:31)
[2016-09-10] MEDS: OXYCODONE HCL IR 5 MG TABLET PO PRN ×2 (05:50→19:30)
[2016-09-10] MEDS: PIPERACILLIN SODIUM/TAZOBACTAM 2.25 GM in NORMAL SALINE 50 ML IV SCH ×3 (05:50→21:32)
[2016-09-10 07:40] LABS: ABSOLUTE EOSINOPHILS # (AUTO) 0.4 10^3/uL (0.0-0.6); ABSOLUTE LYMPHOCYTES (AUTO) 0.8 10^3/uL (0.5-4.7); ABSOLUTE MONOCYTES (AUTO) 0.5 10^3/uL (0.1-1.4); ABSOLUTE NEUT (AUTO) 5.7 10^3/uL (1.7-8.2); BASOPHILS % (AUTO) 0.1 % (0-2); EOSINOPHILS % (AUTO) 5.6 % (0-6); HEMOGLOBIN 10.8 g/dL (13.5-17.0); HGB HCT DIFFERENCE 0.4; LYMPHOCYTES % (AUTO) 10.6 % (13-45); MEAN CORPUSCULAR HEMOGLOBIN 29.5 pg (27.0-33.4); MEAN CORPUSCULAR HGB CONC 33.7 g/dL (32.0-36.0); MEAN CORPUSCULAR VOLUME 88 fl (80-97); MONOCYTES % (AUTO) 6.9 % (3-13); RED BLOOD COUNT 3.65 10^6/uL (4.35-5.55); RED CELL DISTRIBUTION WIDTH 13.4 % (11.5-14.0); SEGMENTED NEUTROPHILS % (AUTO) 76.8 % (42-78); WHITE BLOOD COUNT 7.4 10^3/uL (4.0-10.5)
[2016-09-10 07:53] LABS: ANION GAP 11 (5-19); BLOOD UREA NITROGEN 32 mg/dL (7-20); CALCIUM 8.4 mg/dL (8.4-10.2); CARBON DIOXIDE 24 mmol/L (22-30); CHLORIDE 104 mmol/L (98-107); CREATININE RESULT 4.59 mg/dL (0.52-1.25); GLUCOSE 180 mg/dL (75-110); POTASSIUM 3.5 mmol/L (3.6-5.0); SODIUM 139.4 mmol/L (137-145)
[2016-09-10] MEDS: INSULIN GLARGINE,HUM.REC.ANLOG 300 UNIT/3 ML INSULN.PEN SUBCUT SCH ×2 (08:01→21:38)
[2016-09-10] MEDS: INSULIN LISPRO 100 UNIT/ML 3 ML VIAL SUBCUT SCH ×3 (08:06→17:42)
[2016-09-10] MEDS: LACTOBACILLUS ACIDOPHILUS 250 MG TAB PO SCH ×2 (09:34→20:01)
[2016-09-10] MEDS: LINEZOLID 600 MG TABLET PO SCH ×2 (09:34→21:32)
[2016-09-10] MEDS: METOPROLOL SUCCINATE 50 MG TAB.SR.24H PO SCH (09:34)
[2016-09-10] MEDS: ASPIRIN 81 MG TABLET, ENT COATED PO SCH (09:35)
[2016-09-10] MEDS ORDERED: LIDOCAINE 0.5% INJ-PF (5 MG/ML) 50 ML SDV ONE (10:54)
--- NOTE | 2016-09-10 12:42 | Operative Report ---
Operative Report DATE OF SURGERY: 09/10/16 PREOPERATIVE DIAGNOSIS: End-stage renal disease requiring hemodialysis. POSTOPERATIVE DIAGNOSIS: End-stage renal disease requiring hemodialysis. OPERATION: 1. Ultrasound evaluation of the right femoral vein. 2. Real-time insertion of temporary hemodialysis catheter via right femoral vein. SURGEON: JOIE CHAPA PRIMARY GRADE TEACHER: None ANESTHESIA: Local TISSUE REMOVED OR ALTERED: Not applicable COMPLICATIONS: None ESTIMATED BLOOD LOSS: 5 mL. INTRAOPERATIVE FINDINGS: Of a satisfactory right femoral vein to support temporary hemodialysis catheter. Right large about 2 cm in diameter. Ultrasound was of great value in this patient who is morbidly obese. PROCEDURE: After obtaining informed consent, the patient was positioned supine at bedside. The right groin and adjacent areas were prepared with chlorhexidine and draped out with sterile linen. After the universal timeout the procedure commenced. A steriley sheathed ultrasound probe was used to evaluate the right femoral vein. Local anesthesia was infiltrated adjacent to the probe. Access into the left femoral was accomplished using a micropuncture needle followed, by micropuncture wire and then with a micropuncture catheter. This was followed by introduction of a 0.035 guidewire, the skin opening was enlarged slightly, serially larger dilators were now placed followed by introduction of a triaysis catheter. All of these transitions were smooth. Each lumen was aspirated of blood and irrigated with heparinized solution. The catheter was now sutured to the skin using 3-0 nylon. A Bio A patch was now applied, followed by sterile dressings. Caps were placed on the end of the each of the lumens. The procedure concluded. Copies dictated operative report to Dr. Joie Boothe MD.
--- NOTE | 2016-09-10 16:31 | PDOC PROGRESS REPORT ---
Subjective Progress Note for:: 09/10/16 Subjective:: I am seeing the patient and his first acute hemodialysis treatment. Patient is stable and does not really have any complaints. His trialysis catheter placement at noon time was uneventful. However we are running reversed at the moment. Patient denies any shortness of breath or bleeding. He continues to make some urine. Physical Exam Vital Signs: Temp Pulse Resp BP Pulse Ox 98.4 F 75 18 145/58 H 98 09/10/16 11:27 09/10/16 11:27 09/10/16 11:27 09/10/16 11:27 09/10/16 11:27 Intake & Output 09/09/16 09/10/16 09/11/16 06:59 06:59 06:59 Intake Total 1470 1544 500 Output Total 1600 1500 700 Balance -130 44 -200 Weight 112.6 kg Vital signs during dialysis treatment today: Blood pressure of 142/65, heart rate of 76, blood flow rate of 250 mL/min, dialysate flow rate of 500/min. Exam: General appearance: PRESENT: no acute distress, cooperative, well-developed, well-nourished Head exam: PRESENT: atraumatic, normocephalic Eye exam: PRESENT: conjunctiva slightly pale, PERRLA. ABSENT: scleral icterus Neck exam: ABSENT: JVD Respiratory exam: PRESENT: Diminished breath sounds. ABSENT: crackles, rales, rhonchi, unlabored, wheezes Cardiovascular exam: PRESENT: Regular rate rhythm -+S1, +S2. ABSENT: diastolic murmur, systolic murmur GI/Abdominal exam: PRESENT: normal bowel sounds, soft. ABSENT: guarding, mass, tenderness Extremities exam: Bilateral grade 1-2 bilateral lower extremity pitting edema left greater than the right which seems to be slowly improving Neurological exam: PRESENT: alert, awake, oriented to person, place and time. Skin exam: PRESENT: dry, warm, erythematous papulovesicular lesion in the left lower extremity seems to be slowly improving with improvement of edema. He seems to be developing erythema on the upper part of his right leg. Results Laboratory Results: 09/10/16 07:29 09/10/16 07:29 09/10/16 09/10/16 07:29 07:29 WBC 7.4 RBC 3.65 L Hgb 10.8 L Hct 32.0 L MCV 88 MCH 29.5 MCHC 33.7 RDW 13.4 Plt Count 235 Seg Neutrophils % 76.8 Lymphocytes % 10.6 L Monocytes % 6.9 Eosinophils % 5.6 Basophils % 0.1 Absolute Neutrophils 5.7 Absolute Lymphocytes 0.8 Absolute Monocytes 0.5 Absolute Eosinophils 0.4 Absolute Basophils 0.0 Sodium 139.4 Potassium 3.5 L Chloride 104 Carbon Dioxide 24 Anion Gap 11 BUN 32 H Creatinine 4.59 H Est GFR ( Amer) 16 L Est GFR (Non-Af Amer) 13 L Glucose 180 H Calcium 8.4 09/04/16 15:30 Blood Blood Culture - Final NO GROWTH IN 5 DAYS 09/08/16 05:22 Creatine Kinase 575 H Impressions: Chest X-Ray 09/04/16 15:12 IMPRESSION: NO SIGNIFICANT RADIOGRAPHIC FINDING IN THE CHEST. Lower Extremity CT 09/05/16 00:00 IMPRESSION: DIFFUSE EDEMA/ INFLAMMATION IN THE SUBCUTANEOUS FATTY TISSUES. DIFFUSE SKIN THICKENING. NO SOFT TISSUE ABSCESS. NO SIGNIFICANT BONY FINDINGS. Renal Ultrasound 09/07/16 00:00 IMPRESSION: NORMAL, SOMEWHAT LIMITED RENAL ULTRASOUND. Assessment & Plan - Diagnosis (1) Acute kidney injury Is this a current diagnosis for this admission?: YesPlan: Patient has better urine output today Madsen catheter insertion. He did have some urinary retention yesterday. The other most likely possibility of the cause of the patient's AK I is contrast nephropathy secondary to the contrast given 2 days ago in conjunction with other nephrotoxins including diuretics Lasix, ANDRES inhibitors, and current infection. All of this has been discontinued currently. Patient's kidney function is been deteriorating at the rapid pace at this point. However patient does not have any uremic symptoms. He does have symptoms of fluid retention which was present since admission anyways. Today he seems to have more fluid retention. The ultrasound which did not show any hydronephrosis. Patient's kidney function continues to get worse today. Due to rapidly progressing deterioration of kidney function and fluid retention the patient will need acute renal replacement therapy. I spoke to the patient and his at bedside about starting hemodialysis tomorrow to help with volume and solute control. Discussed benefits and risks including bleeding, infection, and hemodynamic instability during dialysis treatment including cardiac arrest. Patient and understood and agreed to proceed. We will do dialysis today for 2.5 hours, using the patient's trialysis catheter , with 3 potassium bath, blood flow rate of 250 mL per minute, dialysate flow rate of 500 mL per minute, ultrafiltration 3 L as tolerated, no heparin and no Procrit during dialysis . We will discontinue IV fluids today. We will reevaluate patient on Tuesday for further need of hemodialysis. (2) Contrast dye induced nephropathy Is this a current diagnosis for this admission?: Yes (3) Urinary retention Is this a current diagnosis for this admission?: YesPlan: Maintain Madsen catheter for now. (4) SIRS (systemic inflammatory response syndrome) Is this a current diagnosis for this admission?: Yes (5) Left leg cellulitis Is this a current diagnosis for this admission?: Yes (6) Coronary artery disease Is this a current diagnosis for this admission?: Yes (7) Edema Is this a current diagnosis for this admission?: Yes (8) Uncontrolled diabetes mellitus Qualifiers: Diabetes mellitus type: type 1 Diabetes mellitus complication status: with skin complications Is this a current diagnosis for this admission?: Yes - Time Time with patient: 15-25 minutes
--- NOTE | 2016-09-10 17:24 | PDOC PROGRESS REPORT ---
Subjective Progress Note for:: 09/10/16 Subjective:: Patient reports that he feels that his left lower extremity has improved. He reports some shortness of breath/wheezing. He reports that the breathing treatment helped his wheezing somewhat. He reports his this cellulitis is appearing to improve as well. Patient denies chest pain, abdominal pain, nausea, vomiting, fevers, chills, headache, new onset weakness. Reports he is having diarrhea without hematochezia or melena. Plan for dialysis today. Physical Exam Vital Signs: Temp Pulse Resp BP Pulse Ox 98.4 F 75 18 145/58 H 98 09/10/16 11:27 09/10/16 11:27 09/10/16 11:27 09/10/16 11:27 09/10/16 11:27 Intake & Output 09/09/16 09/10/16 09/11/16 06:59 06:59 06:59 Intake Total 1470 1544 500 Output Total 1600 1500 700 Balance -130 44 -200 Weight 112.6 kg Exam: GENERAL: no acute distress HEENT: Normocephalic, no scleral icterus, conjunctiva clear, EOEM intact, PERRLA , moist mucous membranes NECK: trachea midline, no JVD RESPIRATORY: Bilateral bibasilar rales occasional wheeze, CARDIAC: Regular rate and rhythm, no murmur/nanette/rub ABDOMEN: Soft, obese, no tenderness, no guarding, normal bowel sounds, negative Ruiz sign EXTREMITIES: asymmetric 2+Pitting edema in bilateral lower extremities NEUROLOGIC: Alert, oriented to person/place/time, normal speech, cranial nerves grossly intact, tactile sensation intact in all extremities SKIN: Erythema left lower extremity with some blistering with hemorrhage and yellow exudate, extending from the ankle to knee, clearing on foot and ankle, improved PSYCHIATRIC: Normal mood, normal affect Results Laboratory Results: 09/10/16 07:29 09/10/16 07:29 09/10/16 09/10/16 07:29 07:29 WBC 7.4 RBC 3.65 L Hgb 10.8 L Hct 32.0 L MCV 88 MCH 29.5 MCHC 33.7 RDW 13.4 Plt Count 235 Seg Neutrophils % 76.8 Lymphocytes % 10.6 L Monocytes % 6.9 Eosinophils % 5.6 Basophils % 0.1 Absolute Neutrophils 5.7 Absolute Lymphocytes 0.8 Absolute Monocytes 0.5 Absolute Eosinophils 0.4 Absolute Basophils 0.0 Sodium 139.4 Potassium 3.5 L Chloride 104 Carbon Dioxide 24 Anion Gap 11 BUN 32 H Creatinine 4.59 H Est GFR ( Amer) 16 L Est GFR (Non-Af Amer) 13 L Glucose 180 H Calcium 8.4 09/04/16 15:30 Blood Blood Culture - Final NO GROWTH IN 5 DAYS 09/08/16 05:22 Creatine Kinase 575 H Impressions: Chest X-Ray 09/04/16 15:12 IMPRESSION: NO SIGNIFICANT RADIOGRAPHIC FINDING IN THE CHEST. Lower Extremity CT 09/05/16 00:00 IMPRESSION: DIFFUSE EDEMA/ INFLAMMATION IN THE SUBCUTANEOUS FATTY TISSUES. DIFFUSE SKIN THICKENING. NO SOFT TISSUE ABSCESS. NO SIGNIFICANT BONY FINDINGS. Renal Ultrasound 09/07/16 00:00 IMPRESSION: NORMAL, SOMEWHAT LIMITED RENAL ULTRASOUND. Assessment & Plan - Diagnosis (1) Sepsis affecting skin Is this a current diagnosis for this admission?: YesPlan: 2/2 to cellulitis. Patient on Zyvox, clindamycin, and Zosyn (2) Left leg cellulitis Is this a current diagnosis for this admission?: YesPlan: Patient antibiotics to Zyvox, clindamycin and continued Zosyn. Current cultures are negative Tmax last 24 hrs 99.9. (3) Acute kidney injury Is this a current diagnosis for this admission?: YesPlan: This is likely secondary to contrast nephropathy, Although patient had a period of hypotension, and this could be associated with ATN. Patient appears volume overloaded, stop IVF. Initial FeNa reveals patient is prerenal 0.7%. Renal ultrasound is normal. Appreciate nephrology input and plans for ultrafiltration tpday. Reduce nephrotoxic agents by holding lisinopril, metformin, lasix, and vancomycin. Creatinine appears to have plateaued. (4) Coronary artery disease Is this a current diagnosis for this admission?: Yes (5) Thrombocytopenia Is this a current diagnosis for this admission?: Yes (6) Uncontrolled diabetes mellitus Qualifiers: Diabetes mellitus type: type 1 Diabetes mellitus complication status: with skin complications Diabetes mellitus complication detail: with other skin complication Qualified Code(s): E10.628 - Type 1 diabetes mellitus with other skin complications; E10.65 - Type 1 diabetes mellitus with hyperglycemia Is this a current diagnosis for this admission?: YesPlan: Hgb A1c 6.9 Much improved glucose with increase in Lantus and addition of lispro. Lantus 60 units subcu twice daily and 15units of Lispro pre-meals in addition to SSI. 09/09/16 09/09/16 09/09/16 04:16 06:13 12:18 Glucose 146 H POC Glucose 153 H 178 H 09/09/16 09/09/16 09/10/16 16:28 21:42 05:47 Glucose POC Glucose 159 H 210 H 146 H 09/10/16 07:29 Glucose 180 H POC Glucose (7) Morbid obesity with BMI of 40.0-44.9, adult Is this a current diagnosis for this admission?: Yes - Time Time Spent with patient: 25-34 minutes Medications reviewed and adjusted accordingly: Yes
[2016-09-10] MEDS: SILVER SULFADIAZINE 1% CREAM 50 GM TP SCH (20:01)
[2016-09-10] MEDS: SIMVASTATIN 40 MG TABLET PO SCH (21:32)
[2016-09-11] MEDS: OXYCODONE HCL IR 5 MG TABLET PO PRN (01:10)
[2016-09-11] MEDS: GABAPENTIN 300 MG CAPSULE PO SCH ×3 (06:08→21:41)
[2016-09-11] MEDS: CLINDAMYCIN 600 MG/D5W RTU 50 ML IV SCH ×3 (06:08→21:41)
[2016-09-11] MEDS: PIPERACILLIN SODIUM/TAZOBACTAM 2.25 GM in NORMAL SALINE 50 ML IV SCH ×2 (06:08→14:39)
[2016-09-11 06:32] LABS: ABSOLUTE EOSINOPHILS # (AUTO) 0.4 10^3/uL (0.0-0.6); ABSOLUTE LYMPHOCYTES (AUTO) 1.2 10^3/uL (0.5-4.7); ABSOLUTE MONOCYTES (AUTO) 0.6 10^3/uL (0.1-1.4); ABSOLUTE NEUT (AUTO) 5.3 10^3/uL (1.7-8.2); BASOPHILS % (AUTO) 0.2 % (0-2); EOSINOPHILS % (AUTO) 5.6 % (0-6); HEMATOCRIT 35.1 % (37.9-51.0); HEMOGLOBIN 12.1 g/dL (13.5-17.0); HGB HCT DIFFERENCE 1.2; LYMPHOCYTES % (AUTO) 16.4 % (13-45); MEAN CORPUSCULAR HEMOGLOBIN 30.1 pg (27.0-33.4); MEAN CORPUSCULAR HGB CONC 34.4 g/dL (32.0-36.0); MEAN CORPUSCULAR VOLUME 88 fl (80-97); MONOCYTES % (AUTO) 8.4 % (3-13); RED BLOOD COUNT 4.01 10^6/uL (4.35-5.55); RED CELL DISTRIBUTION WIDTH 13.2 % (11.5-14.0); SEGMENTED NEUTROPHILS % (AUTO) 69.4 % (42-78); WHITE BLOOD COUNT 7.6 10^3/uL (4.0-10.5)
[2016-09-11 06:47] LABS: ANION GAP 11 (5-19); BLOOD UREA NITROGEN 25 mg/dL (7-20); CALCIUM 8.9 mg/dL (8.4-10.2); CARBON DIOXIDE 28 mmol/L (22-30); CHLORIDE 104 mmol/L (98-107); CREATININE RESULT 4.31 mg/dL (0.52-1.25); GLUCOSE 103 mg/dL (75-110); POTASSIUM 3.4 mmol/L (3.6-5.0); SODIUM 142.5 mmol/L (137-145)
[2016-09-11] MEDS: INSULIN LISPRO 100 UNIT/ML 3 ML VIAL SUBCUT SCH ×3 (08:13→16:55)
[2016-09-11] MEDS: INSULIN GLARGINE,HUM.REC.ANLOG 300 UNIT/3 ML INSULN.PEN SUBCUT SCH ×2 (08:14→21:41)
[2016-09-11] MEDS: LEVALBUTEROL HCL NEB 1.25 MG/3 ML AMPUL NEB PRN ×2 (08:35→14:00)
[2016-09-11] MEDS: ASPIRIN 81 MG TABLET, ENT COATED PO SCH (10:49)
[2016-09-11] MEDS: METOPROLOL SUCCINATE 50 MG TAB.SR.24H PO SCH (10:49)
[2016-09-11] MEDS: LINEZOLID 600 MG TABLET PO SCH ×2 (10:49→21:41)
[2016-09-11] MEDS: LACTOBACILLUS ACIDOPHILUS 250 MG TAB PO SCH ×2 (10:49→17:58)
[2016-09-11] MEDS: SILVER SULFADIAZINE 1% CREAM 50 GM TP SCH ×2 (10:51→17:58)
--- NOTE | 2016-09-11 16:46 | PDOC PROGRESS REPORT ---
Subjective Progress Note for:: 09/11/16 Subjective:: Patient reports that he feels that his left lower extremity has improved. He reports shortness of breath/wheezing has also improved. Patient denies chest pain, abdominal pain, nausea, vomiting, fevers, chills, headache, new onset weakness. Physical Exam Vital Signs: Temp Pulse Resp BP Pulse Ox 98.3 F 73 18 126/46 H 93 09/11/16 00:09 09/11/16 00:09 09/11/16 00:09 09/11/16 00:09 09/11/16 00:09 Intake & Output 09/10/16 09/11/16 09/12/16 06:59 06:59 06:59 Intake Total 1544 600 Output Total 1500 3900 Balance 44 -3300 Weight 112.6 kg 112.6 kg Exam: GENERAL: no acute distress HEENT: Normocephalic, no scleral icterus, conjunctiva clear, EOEM intact, PERRLA , moist mucous membranes NECK: trachea midline, no JVD RESPIRATORY: CTAB CARDIAC: Regular rate and rhythm, no murmur/nanette/rub ABDOMEN: Soft, obese, no tenderness, no guarding, normal bowel sounds, negative Ruiz sign EXTREMITIES: no cyanosis, no clubbing, asymmetric 2+Pitting edema in bilateral lower extremities NEUROLOGIC: Alert, oriented to person/place/time, normal speech, cranial nerves grossly intact, tactile sensation intact in all extremities SKIN: Erythema left lower extremity with some blistering with hemorrhage and yellow exudate, extending from the ankle to knee, clearing on foot and ankle and upper calf, improved PSYCHIATRIC: Normal mood, normal affect Results Laboratory Results: 09/11/16 06:09 09/11/16 06:09 09/10/16 09/10/16 09/11/16 07:29 07:29 06:09 WBC 7.4 7.6 RBC 3.65 L 4.01 L Hgb 10.8 L 12.1 L Hct 32.0 L 35.1 L MCV 88 88 MCH 29.5 30.1 MCHC 33.7 34.4 RDW 13.4 13.2 Plt Count 235 272 Seg Neutrophils % 76.8 69.4 Lymphocytes % 10.6 L 16.4 Monocytes % 6.9 8.4 Eosinophils % 5.6 5.6 Basophils % 0.1 0.2 Absolute Neutrophils 5.7 5.3 Absolute Lymphocytes 0.8 1.2 Absolute Monocytes 0.5 0.6 Absolute Eosinophils 0.4 0.4 Absolute Basophils 0.0 0.0 Sodium 139.4 Potassium 3.5 L Chloride 104 Carbon Dioxide 24 Anion Gap 11 BUN 32 H Creatinine 4.59 H Est GFR ( Amer) 16 L Est GFR (Non-Af Amer) 13 L Glucose 180 H Calcium 8.4 09/11/16 06:09 WBC RBC Hgb Hct MCV MCH MCHC RDW Plt Count Seg Neutrophils % Lymphocytes % Monocytes % Eosinophils % Basophils % Absolute Neutrophils Absolute Lymphocytes Absolute Monocytes Absolute Eosinophils Absolute Basophils Sodium 142.5 Potassium 3.4 L Chloride 104 Carbon Dioxide 28 Anion Gap 11 BUN 25 H Creatinine 4.31 H Est GFR ( Amer) 17 L Est GFR (Non-Af Amer) 14 L Glucose 103 Calcium 8.9 09/08/16 05:22 Creatine Kinase 575 H Impressions: Chest X-Ray 09/04/16 15:12 IMPRESSION: NO SIGNIFICANT RADIOGRAPHIC FINDING IN THE CHEST. Lower Extremity CT 09/05/16 00:00 IMPRESSION: DIFFUSE EDEMA/ INFLAMMATION IN THE SUBCUTANEOUS FATTY TISSUES. DIFFUSE SKIN THICKENING. NO SOFT TISSUE ABSCESS. NO SIGNIFICANT BONY FINDINGS. Renal Ultrasound 09/07/16 00:00 IMPRESSION: NORMAL, SOMEWHAT LIMITED RENAL ULTRASOUND. Assessment & Plan - Diagnosis (1) Sepsis affecting skin Is this a current diagnosis for this admission?: YesPlan: 2/2 to cellulitis. Patient on Zyvox, clindamycin, and Zosyn (2) Left leg cellulitis Is this a current diagnosis for this admission?: YesPlan: Patient antibiotics to Zyvox, clindamycin and continued Zosyn. Patient on day # 5 of this combined therapy. Current cultures are negative Tmax last 24 hrs 99.1. (3) Acute kidney injury Is this a current diagnosis for this admission?: YesPlan: This is likely secondary to contrast nephropathy, Although patient had a period of hypotension, and this could be associated with ATN. Patient appears volume overloaded, stop IVF. Initial FeNa reveals patient is prerenal 0.7%. Renal ultrasound is normal. Appreciate nephrology input and patient received ultrafiltration on Tuesday with plans for HD on Tuesday. Reduce nephrotoxic agents by holding lisinopril, metformin, lasix, and vancomycin. Creatinine appears to have plateaued. (4) Coronary artery disease Is this a current diagnosis for this admission?: Yes (5) Thrombocytopenia Is this a current diagnosis for this admission?: Yes (6) Uncontrolled diabetes mellitus Qualifiers: Diabetes mellitus type: type 1 Diabetes mellitus complication status: with skin complications Diabetes mellitus complication detail: with other skin complication Qualified Code(s): E10.628 - Type 1 diabetes mellitus with other skin complications; E10.65 - Type 1 diabetes mellitus with hyperglycemia Is this a current diagnosis for this admission?: YesPlan: Hgb A1c 6.9 Much improved glucose with increase in Lantus and addition of lispro. Lantus 60 units subcu twice daily and 15units of Lispro pre-meals in addition to SSI. 09/10/16 09/10/16 09/10/16 12:19 17:39 21:29 Glucose POC Glucose 160 H 101 106 09/11/16 09/11/16 09/11/16 06:09 06:16 11:44 Glucose 103 POC Glucose 117 H 154 H (7) Morbid obesity with BMI of 40.0-44.9, adult Is this a current diagnosis for this admission?: Yes - Time Critical Time spent with patient: 25-34 minutes Medications reviewed and adjusted accordingly: Yes Anticipated discharge: Home Within: within 48 hours - Inpatient Certification Based on my medical assessment, after consideration of the patient's comorbidities, presenting symptoms, or acuity I expect that the services needed warrant INPATIENT care.: Yes I certify that my determination is in accordance with my understanding of Medicare's requirements for reasonable and necessary INPATIENT services [42 CFR 412.3e].: Yes Medical Necessity: Need for IV Antibiotics Post Hospital Care: D/C [employer] [employer] Documentation
[2016-09-11 19:36] LABS: HEPATITIS C QUANTITATION HCV Not Detected IU/mL (.)
[2016-09-11] MEDS: SIMVASTATIN 40 MG TABLET PO SCH (21:41)
[2016-09-11 22:24] LABS: HEMOGLOBIN 10.7 g/dL (13.5-17.0); HGB HCT DIFFERENCE 1.1; MEAN CORPUSCULAR HEMOGLOBIN 30.4 pg (27.0-33.4); MEAN CORPUSCULAR HGB CONC 34.5 g/dL (32.0-36.0); MEAN CORPUSCULAR VOLUME 88 fl (80-97); RED BLOOD COUNT 3.52 10^6/uL (4.35-5.55); RED CELL DISTRIBUTION WIDTH 13.2 % (11.5-14.0); WHITE BLOOD COUNT 7.8 10^3/uL (4.0-10.5)
[2016-09-11 22:29] LABS: PROTHROMBIN TIME 13.8 SEC (11.4-15.4)
[2016-09-12] MEDS: CLINDAMYCIN 600 MG/D5W RTU 50 ML IV SCH ×3 (06:16→22:12)
[2016-09-12] MEDS: GABAPENTIN 300 MG CAPSULE PO SCH ×3 (06:16→22:12)
[2016-09-12 08:15] LABS: ABSOLUTE EOSINOPHILS # (AUTO) 0.4 10^3/uL (0.0-0.6); ABSOLUTE LYMPHOCYTES (AUTO) 1.3 10^3/uL (0.5-4.7); ABSOLUTE MONOCYTES (AUTO) 0.7 10^3/uL (0.1-1.4); ABSOLUTE NEUT (AUTO) 5.8 10^3/uL (1.7-8.2); BASOPHILS % (AUTO) 0.2 % (0-2); EOSINOPHILS % (AUTO) 5.2 % (0-6); HEMATOCRIT 32.6 % (37.9-51.0); HEMOGLOBIN 11.3 g/dL (13.5-17.0); HGB HCT DIFFERENCE 1.3; LYMPHOCYTES % (AUTO) 16.1 % (13-45); MEAN CORPUSCULAR HEMOGLOBIN 30.5 pg (27.0-33.4); MEAN CORPUSCULAR HGB CONC 34.6 g/dL (32.0-36.0); MEAN CORPUSCULAR VOLUME 88 fl (80-97); MONOCYTES % (AUTO) 8.3 % (3-13); RED BLOOD COUNT 3.69 10^6/uL (4.35-5.55); RED CELL DISTRIBUTION WIDTH 13.4 % (11.5-14.0); SEGMENTED NEUTROPHILS % (AUTO) 70.2 % (42-78); WHITE BLOOD COUNT 8.2 10^3/uL (4.0-10.5)
[2016-09-12 08:25] LABS: PROTHROMBIN TIME 13.8 SEC (11.4-15.4)
[2016-09-12 08:26] LABS: PARTIAL THROMBOPLASTIN TIME 39.5 SEC (23.5-35.8)
[2016-09-12 08:31] LABS: ANION GAP 11 (5-19); BLOOD UREA NITROGEN 28 mg/dL (7-20); CALCIUM 8.6 mg/dL (8.4-10.2); CARBON DIOXIDE 25 mmol/L (22-30); CHLORIDE 105 mmol/L (98-107); CREATININE RESULT 3.97 mg/dL (0.52-1.25); GLUCOSE 124 mg/dL (75-110); POTASSIUM 3.6 mmol/L (3.6-5.0)
[2016-09-12] MEDS: INSULIN LISPRO 100 UNIT/ML 3 ML VIAL SUBCUT SCH ×3 (08:31→18:26)
[2016-09-12] MEDS: INSULIN GLARGINE,HUM.REC.ANLOG 300 UNIT/3 ML INSULN.PEN SUBCUT SCH ×2 (08:52→22:10)
[2016-09-12] MEDS: LINEZOLID 600 MG TABLET PO SCH ×2 (11:05→22:00)
[2016-09-12] MEDS: METOPROLOL SUCCINATE 50 MG TAB.SR.24H PO SCH (11:05)
[2016-09-12] MEDS: SILVER SULFADIAZINE 1% CREAM 50 GM TP SCH ×2 (11:06→18:26)
[2016-09-12] MEDS: LACTOBACILLUS ACIDOPHILUS 250 MG TAB PO SCH ×2 (11:06→18:26)
[2016-09-12] MEDS: ASPIRIN 81 MG TABLET, ENT COATED PO SCH (11:06)
[2016-09-12] MEDS ORDERED: HYDRALAZINE HCL INJ/PF 20 MG/1 ML SDV IV PRN (15:04)
--- NOTE | 2016-09-12 15:12 | PDOC PROGRESS REPORT ---
Subjective Progress Note for:: 09/12/16 Subjective:: Patient reported to nursing BRBPR with BM last night. Patient noted by nursing to be intermittently confused. Patient reports his leg is greatly improved. Patient denies chest pain, shortness of breath, abdominal pain, nausea, vomiting , fevers, chills, diarrhea, constipation, headache, new onset weakness. Physical Exam Vital Signs: Temp Pulse Resp BP Pulse Ox 98.8 F 72 16 131/54 H 95 09/11/16 23:31 09/11/16 23:31 09/11/16 23:31 09/11/16 23:31 09/11/16 23:31 Intake & Output 09/11/16 09/12/16 09/13/16 06:59 06:59 06:59 Intake Total 600 2180 Output Total 3900 1100 Balance -3300 1080 Weight 112.6 kg 112.6 kg Exam: GENERAL: no acute distress HEENT: Normocephalic, no scleral icterus, conjunctiva clear, EOEM intact, PERRLA , moist mucous membranes NECK: trachea midline, no JVD RESPIRATORY: CTAB CARDIAC: Regular rate and rhythm, no murmur/nanette/rub ABDOMEN: Soft, obese, no tenderness, no guarding, normal bowel sounds, negative Ruiz sign EXTREMITIES: no cyanosis, no clubbing, asymmetric 2+Pitting edema in bilateral lower extremities NEUROLOGIC: Alert, oriented to person/place, not time, normal speech, cranial nerves grossly intact, tactile sensation intact in all extremities SKIN: Erythema left lower extremity with some blistering with hemorrhage and yellow exudate, improved PSYCHIATRIC: Normal mood, normal affect Results Laboratory Results: 09/11/16 22:10 09/11/16 06:09 09/11/16 22:10 WBC 7.8 RBC 3.52 L Hgb 10.7 L Hct 31.0 L MCV 88 MCH 30.4 MCHC 34.5 RDW 13.2 Plt Count 282 09/08/16 05:22 Creatine Kinase 575 H Impressions: Chest X-Ray 09/04/16 15:12 IMPRESSION: NO SIGNIFICANT RADIOGRAPHIC FINDING IN THE CHEST. Lower Extremity CT 09/05/16 00:00 IMPRESSION: DIFFUSE EDEMA/ INFLAMMATION IN THE SUBCUTANEOUS FATTY TISSUES. DIFFUSE SKIN THICKENING. NO SOFT TISSUE ABSCESS. NO SIGNIFICANT BONY FINDINGS. Renal Ultrasound 09/07/16 00:00 IMPRESSION: NORMAL, SOMEWHAT LIMITED RENAL ULTRASOUND. Assessment & Plan - Diagnosis (1) Sepsis affecting skin Is this a current diagnosis for this admission?: YesPlan: 2/2 to cellulitis. Patient on Zyvox, clindamycin, and Zosyn. (2) Left leg cellulitis Is this a current diagnosis for this admission?: YesPlan: Patient antibiotics to Zyvox, clindamycin and continued Zosyn. Patient on day # 5 of this combined therapy. Current cultures are negative Tmax last 24 hrs 99.1. (3) Acute kidney injury Is this a current diagnosis for this admission?: YesPlan: This is likely secondary to contrast nephropathy, Although patient had a period of hypotension, and this could be associated with ATN. Creatinine appears to have plateaued. Patient currently with slight improvement of renal function and appears to be having increased urine production. Initial FeNa reveals patient is prerenal 0.7%. Renal ultrasound is normal. Appreciate nephrology input and patient received ultrafiltration on Tuesday with plans for HD on Tuesday. Reduced nephrotoxic agents by holding lisinopril, metformin, lasix, and vancomycin. (4) Coronary artery disease Is this a current diagnosis for this admission?: YesPlan: Hold lisinopril in light of current kidney injury. 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 Lantus 60 units subcu twice daily and 15units of Lispro pre-meals in addition to SSI. 09/11/16 09/11/16 09/11/16 11:44 16:30 21:09 Glucose POC Glucose 154 H 142 H 231 H 09/12/16 09/12/16 09/12/16 06:23 07:50 11:12 Glucose 124 H POC Glucose 123 H 145 H (7) Morbid obesity with BMI of 40.0-44.9, adult Is this a current diagnosis for this admission?: Yes (8) Encephalopathy Is this a current diagnosis for this admission?: YesPlan: Likely secondary to ARF and sepsis Patient has hx of prior CVA with some mild residual right sided weakness - Time Time Spent with patient: 25-34 minutes Medications reviewed and adjusted accordingly: Yes
[2016-09-12] MEDS: SIMVASTATIN 40 MG TABLET PO SCH (22:13)
[2016-09-12] MEDS ORDERED: LINEZOLID 300 ML IV ONE (23:37)
[2016-09-13 05:02] LABS: ABSOLUTE EOSINOPHILS # (AUTO) 0.4 10^3/uL (0.0-0.6); ABSOLUTE LYMPHOCYTES (AUTO) 1.4 10^3/uL (0.5-4.7); ABSOLUTE MONOCYTES (AUTO) 0.7 10^3/uL (0.1-1.4); ABSOLUTE NEUT (AUTO) 6.2 10^3/uL (1.7-8.2); BASOPHILS % (AUTO) 0.2 % (0-2); EOSINOPHILS % (AUTO) 4.6 % (0-6); HEMATOCRIT 31.6 % (37.9-51.0); HEMOGLOBIN 10.9 g/dL (13.5-17.0); HGB HCT DIFFERENCE 1.1; LYMPHOCYTES % (AUTO) 16.4 % (13-45); MEAN CORPUSCULAR HEMOGLOBIN 30.6 pg (27.0-33.4); MEAN CORPUSCULAR HGB CONC 34.4 g/dL (32.0-36.0); MEAN CORPUSCULAR VOLUME 89 fl (80-97); MONOCYTES % (AUTO) 7.6 % (3-13); RED BLOOD COUNT 3.54 10^6/uL (4.35-5.55); RED CELL DISTRIBUTION WIDTH 13.8 % (11.5-14.0); SEGMENTED NEUTROPHILS % (AUTO) 71.2 % (42-78); WHITE BLOOD COUNT 8.7 10^3/uL (4.0-10.5)
[2016-09-13 05:24] LABS: ANION GAP 10 (5-19); BLOOD UREA NITROGEN 32 mg/dL (7-20); CALCIUM 8.6 mg/dL (8.4-10.2); CARBON DIOXIDE 25 mmol/L (22-30); CHLORIDE 106 mmol/L (98-107); CREATININE RESULT 3.74 mg/dL (0.52-1.25); GLUCOSE 92 mg/dL (75-110); MAGNESIUM 1.8 mg/dL (1.6-2.3); POTASSIUM 4.1 mmol/L (3.6-5.0); SODIUM 141.3 mmol/L (137-145)
[2016-09-13] MEDS: CLINDAMYCIN 600 MG/D5W RTU 50 ML IV SCH ×3 (06:25→21:13)
[2016-09-13] MEDS: GABAPENTIN 300 MG CAPSULE PO SCH ×3 (06:26→21:14)
[2016-09-13] MEDS ORDERED: INSULIN GLARGINE,HUM.REC.ANLOG 300 UNIT/3 ML INSULN.PEN SUBCUT SCH (08:00)
[2016-09-13] MEDS ORDERED: INSULIN GLARGINE,HUM.REC.ANLOG 1,000 UNIT/10 ML UNIT SUBCUT ONE ×2 (08:30→13:17)
[2016-09-13] MEDS: SILVER SULFADIAZINE 1% CREAM 50 GM TP SCH ×2 (08:30→21:16)
[2016-09-13] MEDS: LACTOBACILLUS ACIDOPHILUS 250 MG TAB PO SCH ×2 (09:57→17:07)
[2016-09-13] MEDS: METOPROLOL SUCCINATE 50 MG TAB.SR.24H PO SCH (09:57)
[2016-09-13] MEDS: ASPIRIN 81 MG TABLET, ENT COATED PO SCH (09:58)
[2016-09-13] MEDS: INSULIN LISPRO 100 UNIT/ML 3 ML VIAL SUBCUT SCH ×3 (09:59→17:08)
[2016-09-13] MEDS: LINEZOLID 600 MG TABLET PO SCH ×2 (10:02→21:14)
--- NOTE | 2016-09-13 14:18 | PDOC PROGRESS REPORT ---
Subjective Progress Note for:: 09/13/16 Subjective:: Plans for dialysis today due to improvement of kidney function and no dialysis catheter. Patient reports his leg is greatly improved. Patient denies chest pain, shortness of breath, abdominal pain, nausea, vomiting , fevers, chills, diarrhea, constipation, headache, new onset weakness. Physical Exam Vital Signs: Temp Pulse Resp BP Pulse Ox 98.4 F 71 19 144/59 H 94 09/13/16 04:00 09/13/16 04:00 09/13/16 04:00 09/13/16 04:00 09/13/16 04:00 Intake & Output 09/12/16 09/13/16 09/14/16 06:59 06:59 06:59 Intake Total 2180 2030 Output Total 1100 1150 Balance 1080 880 Weight 112.6 kg 112.6 kg Exam: GENERAL: no acute distress HEENT: Normocephalic, no scleral icterus, conjunctiva clear, EOEM intact, PERRLA , moist mucous membranes NECK: trachea midline, no JVD RESPIRATORY: CTAB CARDIAC: Regular rate and rhythm, no murmur/nanette/rub ABDOMEN: Soft, obese, no tenderness, no guarding, normal bowel sounds, negative Ruiz sign EXTREMITIES: no cyanosis, no clubbing, asymmetric 2+Pitting edema in bilateral lower extremities NEUROLOGIC: Alert, oriented to person/place, not time, normal speech, cranial nerves grossly intact, tactile sensation intact in all extremities SKIN: Erythema left lower extremity with some blistering with hemorrhage and yellow exudate, improved PSYCHIATRIC: Normal mood, normal affect Results Laboratory Results: 09/13/16 04:09 09/13/16 04:09 09/12/16 09/12/16 09/13/16 07:50 07:50 04:09 WBC 8.2 8.7 RBC 3.69 L 3.54 L Hgb 11.3 L 10.9 L Hct 32.6 L 31.6 L MCV 88 89 MCH 30.5 30.6 MCHC 34.6 34.4 RDW 13.4 13.8 Plt Count 300 311 Seg Neutrophils % 70.2 71.2 Lymphocytes % 16.1 16.4 Monocytes % 8.3 7.6 Eosinophils % 5.2 4.6 Basophils % 0.2 0.2 Absolute Neutrophils 5.8 6.2 Absolute Lymphocytes 1.3 1.4 Absolute Monocytes 0.7 0.7 Absolute Eosinophils 0.4 0.4 Absolute Basophils 0.0 0.0 Sodium 141.0 Potassium 3.6 Chloride 105 Carbon Dioxide 25 Anion Gap 11 BUN 28 H Creatinine 3.97 H Est GFR ( Amer) 18 L Est GFR (Non-Af Amer) 15 L Glucose 124 H Calcium 8.6 Magnesium 09/13/16 04:09 WBC RBC Hgb Hct MCV MCH MCHC RDW Plt Count Seg Neutrophils % Lymphocytes % Monocytes % Eosinophils % Basophils % Absolute Neutrophils Absolute Lymphocytes Absolute Monocytes Absolute Eosinophils Absolute Basophils Sodium 141.3 Potassium 4.1 Chloride 106 Carbon Dioxide 25 Anion Gap 10 BUN 32 H Creatinine 3.74 H Est GFR ( Amer) 20 L Est GFR (Non-Af Amer) 16 L Glucose 92 Calcium 8.6 Magnesium 1.8 09/08/16 05:22 Creatine Kinase 575 H Impressions: Chest X-Ray 09/04/16 15:12 IMPRESSION: NO SIGNIFICANT RADIOGRAPHIC FINDING IN THE CHEST. Lower Extremity CT 09/05/16 00:00 IMPRESSION: DIFFUSE EDEMA/ INFLAMMATION IN THE SUBCUTANEOUS FATTY TISSUES. DIFFUSE SKIN THICKENING. NO SOFT TISSUE ABSCESS. NO SIGNIFICANT BONY FINDINGS. Renal Ultrasound 09/07/16 00:00 IMPRESSION: NORMAL, SOMEWHAT LIMITED RENAL ULTRASOUND. Assessment & Plan - Diagnosis (1) Sepsis affecting skin Is this a current diagnosis for this admission?: YesPlan: 2/2 to cellulitis. Patient on Zyvox, clindamycin, and Zosyn. (2) Left leg cellulitis Is this a current diagnosis for this admission?: YesPlan: Patient antibiotics to Zyvox, clindamycin and continued Zosyn. Patient on day # 6 of this combined therapy. Current cultures are negative Tmax last 24 hrs 98.4. (3) Acute kidney injury Is this a current diagnosis for this admission?: YesPlan: This is likely secondary to contrast nephropathy, Although patient had a period of hypotension, and this could be associated with ATN. Creatinine appears to have plateaued. Patient currently with slight improvement of renal function and appears to be having increased urine production. Initial FeNa reveals patient is prerenal 0.7%. Renal ultrasound is normal. Appreciate nephrology input and patient received ultrafiltration on Tuesday. No plans for dialysis today. Patient trialysis catheter came out. Reduced nephrotoxic agents by holding lisinopril, metformin, lasix, and vancomycin. (4) Coronary artery disease Is this a current diagnosis for this admission?: YesPlan: Hold lisinopril in light of current kidney injury. 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 Lantus 60 units QHS and 50 units QAM and 15units of Lispro pre-meals in addition to SSI. 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 He is mildly evasive about this. And has been for several days. - Time Time Spent with patient: 25-34 minutes Medications reviewed and adjusted accordingly: Yes Anticipated discharge: Home with Homehealth
[2016-09-13] MEDS: TAMSULOSIN HCL 0.4 MG CAP.SR.24H PO SCH (17:07)
--- NOTE | 2016-09-13 20:57 | PDOC PROGRESS REPORT ---
Subjective Progress Note for:: 09/13/16 Subjective:: Patient seems to be doing fine. His trialysis catheter came out yesterday and nobody knows how it came out. Patient also does not know if he took it out himself. He is producing a fair amount of urine. Kidney function is also slowly improving after one dialysis treatment last Tuesday. He feels like his legs very slowly improving. Physical Exam Vital Signs: Temp Pulse Resp BP Pulse Ox 98.5 F 67 19 152/65 H 95 09/13/16 16:00 09/13/16 16:00 09/13/16 16:00 09/13/16 16:00 09/13/16 16:00 Intake & Output 09/12/16 09/13/16 09/14/16 06:59 06:59 06:59 Intake Total 2180 2030 710 Output Total 1100 1150 500 Balance 1080 880 210 Weight 112.6 kg 112.6 kg Exam: General appearance: PRESENT: no acute distress, cooperative, well-developed, well-nourished Head exam: PRESENT: atraumatic, normocephalic Eye exam: PRESENT: conjunctiva pink, PERRLA. ABSENT: scleral icterus Neck exam: ABSENT: JVD Respiratory exam: PRESENT: Diminished breath sounds. ABSENT: crackles, rales, rhonchi, unlabored, wheezes Cardiovascular exam: PRESENT: Regular rate rhythm -+S1, +S2. ABSENT: diastolic murmur, systolic murmur GI/Abdominal exam: PRESENT: normal bowel sounds, soft. ABSENT: guarding, mass, tenderness Extremities exam: Bilateral lower extremity grade 1 pitting edema she is slowly improving Neurological exam: PRESENT: alert, awake, oriented to person, place and time. Skin exam: PRESENT: dry, warm, left leg is now wrapped up in bandage. Results Laboratory Results: 09/13/16 04:09 09/13/16 04:09 09/13/16 09/13/16 04:09 04:09 WBC 8.7 RBC 3.54 L Hgb 10.9 L Hct 31.6 L MCV 89 MCH 30.6 MCHC 34.4 RDW 13.8 Plt Count 311 Seg Neutrophils % 71.2 Lymphocytes % 16.4 Monocytes % 7.6 Eosinophils % 4.6 Basophils % 0.2 Absolute Neutrophils 6.2 Absolute Lymphocytes 1.4 Absolute Monocytes 0.7 Absolute Eosinophils 0.4 Absolute Basophils 0.0 Sodium 141.3 Potassium 4.1 Chloride 106 Carbon Dioxide 25 Anion Gap 10 BUN 32 H Creatinine 3.74 H Est GFR ( Amer) 20 L Est GFR (Non-Af Amer) 16 L Glucose 92 Calcium 8.6 Magnesium 1.8 09/08/16 05:22 Creatine Kinase 575 H Impressions: Chest X-Ray 09/04/16 15:12 IMPRESSION: NO SIGNIFICANT RADIOGRAPHIC FINDING IN THE CHEST. Lower Extremity CT 09/05/16 00:00 IMPRESSION: DIFFUSE EDEMA/ INFLAMMATION IN THE SUBCUTANEOUS FATTY TISSUES. DIFFUSE SKIN THICKENING. NO SOFT TISSUE ABSCESS. NO SIGNIFICANT BONY FINDINGS. Renal Ultrasound 09/07/16 00:00 IMPRESSION: NORMAL, SOMEWHAT LIMITED RENAL ULTRASOUND. Assessment & Plan - Diagnosis (1) Acute kidney injury Is this a current diagnosis for this admission?: YesPlan: Patient has better urine output today Madsen catheter insertion. He did have some urinary retention yesterday. The other most likely possibility of the cause of the patient's AK I is contrast nephropathy secondary to the contrast given 2 days ago in conjunction with other nephrotoxins including diuretics Lasix, ANDRES inhibitors, and current infection. All of this has been discontinued currently. Patient's kidney function is been deteriorating at the rapid pace at this point. However patient does not have any uremic symptoms. He does have symptoms of fluid retention which was present since admission anyways. Today he seems to have more fluid retention. The ultrasound which did not show any hydronephrosis. Due to improvement of kidney function, good urine output, and the dialysis catheter being pulled out yesterday I decided not to do any renal replacement therapy in this patient today. Since he does still have a little bit of swelling I am going to try to start him on some low-dose diuretics with Bumex 1 mg p.o. daily to be started tomorrow. Continue to monitor kidney function and electrolytes. (2) Contrast dye induced nephropathy Is this a current diagnosis for this admission?: Yes (3) Urinary retention Is this a current diagnosis for this admission?: YesPlan: Madsen catheter has been removed. Monitor urine output. 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
[2016-09-13] MEDS: SIMVASTATIN 40 MG TABLET PO SCH (21:14)
[2016-09-13] MEDS: INSULIN GLARGINE,HUM.REC.ANLOG 1,000 UNIT/10 ML UNIT SUBCUT SCH (21:20)
[2016-09-13] MEDS ORDERED: INSULIN GLARGINE,HUM.REC.ANLOG 1,000 UNIT/10 ML UNIT SUBCUT SCH (22:00)
[2016-09-14 05:31] LABS: ANION GAP 10 (5-19); BLOOD UREA NITROGEN 35 mg/dL (7-20); CALCIUM 9.3 mg/dL (8.4-10.2); CARBON DIOXIDE 28 mmol/L (22-30); CHLORIDE 105 mmol/L (98-107); GLUCOSE 120 mg/dL (75-110); POTASSIUM 3.7 mmol/L (3.6-5.0); SODIUM 143.4 mmol/L (137-145)
[2016-09-14] MEDS: GABAPENTIN 300 MG CAPSULE PO SCH ×3 (06:17→21:37)
[2016-09-14] MEDS: CLINDAMYCIN 600 MG/D5W RTU 50 ML IV SCH (06:18)
[2016-09-14] MEDS ORDERED: INSULIN GLARGINE,HUM.REC.ANLOG 1,000 UNIT/10 ML UNIT SUBCUT SCH (08:00)
[2016-09-14] MEDS: INSULIN LISPRO 100 UNIT/ML 3 ML VIAL SUBCUT SCH ×3 (09:36→18:06)
[2016-09-14] MEDS: INSULIN GLARGINE,HUM.REC.ANLOG 1,000 UNIT/10 ML UNIT SUBCUT SCH ×2 (09:39→21:38)
[2016-09-14] MEDS: METOPROLOL SUCCINATE 50 MG TAB.SR.24H PO SCH (09:41)
[2016-09-14] MEDS: ASPIRIN 81 MG TABLET, ENT COATED PO SCH (09:41)
[2016-09-14] MEDS: BUMETANIDE 1 MG TABLET PO SCH (09:42)
[2016-09-14] MEDS: LACTOBACILLUS ACIDOPHILUS 250 MG TAB PO SCH ×2 (09:42→18:08)
[2016-09-14] MEDS: LINEZOLID 600 MG TABLET PO SCH (09:43)
--- NOTE | 2016-09-14 11:21 | PDOC PROGRESS REPORT ---
Subjective Progress Note for:: 09/14/16 Subjective:: Patient has no particular complaints. He is inquiring as to when he can go home. He denies fever, chills, headache, chest pain, shortness of breath, nausea, vomiting. Physical Exam Vital Signs: Temp Pulse Resp BP Pulse Ox 98.4 F 71 19 142/55 H 97 09/14/16 07:36 09/14/16 07:36 09/14/16 07:36 09/14/16 07:36 09/14/16 07:36 Intake & Output 09/13/16 09/14/16 09/15/16 06:59 06:59 06:59 Intake Total 2030 1270 Output Total 1150 600 Balance 880 670 Weight 112.6 kg 112.6 kg GENERAL: No acute distress HEENT: Conjunctiva clear, nonicteric, moist mucous membranes, no JVD, midline trachea RESPIRATORY: Clear to auscultation bilaterally, no wheezes, no rhonchi CARDIAC: Regular rate and rhythm, no murmurs/gallops/rubs ABDOMEN: Soft, nondistended, nontender, positive bowel sounds, no rebound, no guarding EXTREMETIES: 1-2+ edema bilateral lower extremities (left greater than right) NEUROLOGIC: Alert, oriented to person/place/time, CN's grossly intact, no focal deficits SKIN: Erythema/induration in left lower extremity basically resolved, skin breakdown in left lower extremity consistent with venous stasis PSYCH: Normal mood, normal affect Results Laboratory Results: 09/13/16 04:09 09/14/16 04:53 09/14/16 04:53 Sodium 143.4 Potassium 3.7 Chloride 105 Carbon Dioxide 28 Anion Gap 10 BUN 35 H Creatinine 3.70 H Est GFR ( Amer) 20 L Est GFR (Non-Af Amer) 17 L Glucose 120 H Calcium 9.3 09/08/16 05:22 Creatine Kinase 575 H Impressions: Chest X-Ray 09/04/16 15:12 IMPRESSION: NO SIGNIFICANT RADIOGRAPHIC FINDING IN THE CHEST. Lower Extremity CT 09/05/16 00:00 IMPRESSION: DIFFUSE EDEMA/ INFLAMMATION IN THE SUBCUTANEOUS FATTY TISSUES. DIFFUSE SKIN THICKENING. NO SOFT TISSUE ABSCESS. NO SIGNIFICANT BONY FINDINGS. Renal Ultrasound 09/07/16 00:00 IMPRESSION: NORMAL, SOMEWHAT LIMITED RENAL ULTRASOUND. Assessment & Plan - Diagnosis (1) SIRS (systemic inflammatory response syndrome) Is this a current diagnosis for this admission?: YesPlan: Secondary to left lower extremity cellulitis. Resolved. (2) Left leg cellulitis Is this a current diagnosis for this admission?: YesPlan: Extremity much improved. Discontinue Zyvox and convert clindamycin to oral. Discharge home in 1-2 days. (3) Acute kidney injury Is this a current diagnosis for this admission?: YesPlan: Likely secondary to contrast nephropathy. Kidney function is slowly improving. Dr. Ryder of nephrology following. Continue to hold lisinopril. I would like to see patients kidney function improved prior to discharging home. 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
[2016-09-14] MEDS: CLINDAMYCIN HCL 150 MG CAPSULE PO SCH ×2 (12:01→18:07)
[2016-09-14] MEDS: SILVER SULFADIAZINE 1% CREAM 50 GM TP SCH ×2 (12:05→21:38)
[2016-09-14] MEDS: TAMSULOSIN HCL 0.4 MG CAP.SR.24H PO SCH (18:08)
[2016-09-14] MEDS: SIMVASTATIN 40 MG TABLET PO SCH (21:37)
[2016-09-15] MEDS: CLINDAMYCIN HCL 150 MG CAPSULE PO SCH ×5 (00:12→23:22)
[2016-09-15 04:55] LABS: ABSOLUTE EOSINOPHILS # (AUTO) 0.4 10^3/uL (0.0-0.6); ABSOLUTE LYMPHOCYTES (AUTO) 1.3 10^3/uL (0.5-4.7); ABSOLUTE MONOCYTES (AUTO) 0.6 10^3/uL (0.1-1.4); ABSOLUTE NEUT (AUTO) 6.5 10^3/uL (1.7-8.2); BASOPHILS % (AUTO) 0.2 % (0-2); EOSINOPHILS % (AUTO) 4.6 % (0-6); LYMPHOCYTES % (AUTO) 14.6 % (13-45); MEAN CORPUSCULAR HEMOGLOBIN 30.2 pg (27.0-33.4); MEAN CORPUSCULAR HGB CONC 34.2 g/dL (32.0-36.0); MEAN CORPUSCULAR VOLUME 88 fl (80-97); MONOCYTES % (AUTO) 6.6 % (3-13); RED BLOOD COUNT 3.62 10^6/uL (4.35-5.55); RED CELL DISTRIBUTION WIDTH 13.8 % (11.5-14.0); WHITE BLOOD COUNT 8.8 10^3/uL (4.0-10.5)
[2016-09-15 05:25] LABS: ANION GAP 11 (5-19); BLOOD UREA NITROGEN 38 mg/dL (7-20); CARBON DIOXIDE 26 mmol/L (22-30); CHLORIDE 106 mmol/L (98-107); CREATININE RESULT 3.73 mg/dL (0.52-1.25); GLUCOSE 122 mg/dL (75-110); SODIUM 142.8 mmol/L (137-145)
[2016-09-15] MEDS: GABAPENTIN 300 MG CAPSULE PO SCH ×3 (05:28→22:35)
[2016-09-15] MEDS: INSULIN LISPRO 100 UNIT/ML 3 ML VIAL SUBCUT SCH ×3 (08:23→17:04)
[2016-09-15] MEDS: INSULIN GLARGINE,HUM.REC.ANLOG 1,000 UNIT/10 ML UNIT SUBCUT SCH ×2 (08:23→22:35)
[2016-09-15] MEDS: ASPIRIN 81 MG TABLET, ENT COATED PO SCH (09:52)
[2016-09-15] MEDS: LACTOBACILLUS ACIDOPHILUS 250 MG TAB PO SCH ×2 (09:52→17:03)
[2016-09-15] MEDS: SILVER SULFADIAZINE 1% CREAM 50 GM TP SCH ×2 (09:53→22:36)
[2016-09-15] MEDS: METOPROLOL SUCCINATE 50 MG TAB.SR.24H PO SCH (09:53)
[2016-09-15] MEDS: BUMETANIDE 1 MG TABLET PO SCH (11:08)
[2016-09-15] MEDS: INSULIN LISPRO 100 UNIT/ML 3 ML VIAL SUBCUT PRN ×2 (11:15→22:35)
--- NOTE | 2016-09-15 11:23 | PDOC PROGRESS REPORT ---
Subjective Progress Note for:: 09/15/16 Subjective:: Patient has no particular complaints. He has been having decent urine output. He denies fever, chills, headache, chest pain, shortness of breath, nausea, vomiting. Physical Exam Vital Signs: Temp Pulse Resp BP Pulse Ox 98.7 F 81 19 148/63 H 95 09/15/16 07:32 09/15/16 07:32 09/15/16 07:32 09/15/16 07:32 09/15/16 07:32 Intake & Output 09/14/16 09/15/16 09/16/16 06:59 06:59 06:59 Intake Total 1270 1538 Output Total 600 1550 Balance 670 -12 Weight 112.6 kg GENERAL: No acute distress HEENT: Conjunctiva clear, nonicteric, moist mucous membranes, no JVD, midline trachea RESPIRATORY: Clear to auscultation bilaterally, no wheezes, no rhonchi CARDIAC: Regular rate and rhythm, no murmurs/gallops/rubs ABDOMEN: Soft, nondistended, nontender, positive bowel sounds, no rebound, no guarding EXTREMETIES: 1-2+ edema bilateral lower extremities (left greater than right) NEUROLOGIC: Alert, oriented to person/place/time, CN's grossly intact, no focal deficits SKIN: Erythema/induration in left lower extremity basically resolved, skin breakdown in left lower extremity consistent with venous stasis PSYCH: Normal mood, normal affect Results Laboratory Results: 09/15/16 04:24 09/15/16 04:24 09/15/16 09/15/16 04:24 04:24 WBC 8.8 RBC 3.62 L Hgb 11.0 L Hct 32.0 L MCV 88 MCH 30.2 MCHC 34.2 RDW 13.8 Plt Count 313 Seg Neutrophils % 74.0 Lymphocytes % 14.6 Monocytes % 6.6 Eosinophils % 4.6 Basophils % 0.2 Absolute Neutrophils 6.5 Absolute Lymphocytes 1.3 Absolute Monocytes 0.6 Absolute Eosinophils 0.4 Absolute Basophils 0.0 Sodium 142.8 Potassium 4.0 Chloride 106 Carbon Dioxide 26 Anion Gap 11 BUN 38 H Creatinine 3.73 H Est GFR ( Amer) 20 L Est GFR (Non-Af Amer) 16 L Glucose 122 H Calcium 9.0 09/08/16 05:22 Creatine Kinase 575 H Impressions: Chest X-Ray 09/04/16 15:12 IMPRESSION: NO SIGNIFICANT RADIOGRAPHIC FINDING IN THE CHEST. Lower Extremity CT 09/05/16 00:00 IMPRESSION: DIFFUSE EDEMA/ INFLAMMATION IN THE SUBCUTANEOUS FATTY TISSUES. DIFFUSE SKIN THICKENING. NO SOFT TISSUE ABSCESS. NO SIGNIFICANT BONY FINDINGS. Renal Ultrasound 09/07/16 00:00 IMPRESSION: NORMAL, SOMEWHAT LIMITED RENAL ULTRASOUND. Assessment & Plan - Diagnosis (1) SIRS (systemic inflammatory response syndrome) Is this a current diagnosis for this admission?: YesPlan: Secondary to left lower extremity cellulitis. Resolved. (2) Left leg cellulitis Is this a current diagnosis for this admission?: YesPlan: Extremity much improved. Continue oral clindamycin. Discharge home in 1-2 days. (3) Acute kidney injury Is this a current diagnosis for this admission?: YesPlan: Likely secondary to contrast nephropathy. Iodinated contrast noted as adverse drug reaction. Kidney function is slowly improving. Dr. Ryder of nephrology following and has started patient on Bumex. Continue to hold lisinopril. I would like to see patients kidney function improved prior to discharging home. (4) Coronary artery disease Is this a current diagnosis for this admission?: YesPlan: Continue aspirin, Plavix, Toprol-XL, simvastatin. 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 Holding metformin secondary to SIRS and acute kidney injury. Continue Lantus 50 units every morning and 60 units subcu nightly. Continue Humalog 15 units q. before meals. Continue sliding scale insulin coverage. Hemoglobin A1c 6.9. (7) Thrombocytopenia Is this a current diagnosis for this admission?: YesPlan: Resolved. (8) Morbid obesity with BMI of 40.0-44.9, adult Is this a current diagnosis for this admission?: Yes - Time Time Spent with patient: 25-34 minutes
[2016-09-15] MEDS: TAMSULOSIN HCL 0.4 MG CAP.SR.24H PO SCH (17:04)
--- NOTE | 2016-09-15 17:11 | PDOC PROGRESS REPORT ---
Subjective Progress Note for:: 09/15/16 Subjective:: Patient is clinically doing fine. He continues to make a good amount of urine output with Bumex. He and the nurse thinks that his cellulitis in his left leg is improving. He denies any shortness of breath no any other complaints. Physical Exam Vital Signs: Temp Pulse Resp BP Pulse Ox 98.2 F 73 19 161/60 H 95 09/15/16 15:20 09/15/16 15:20 09/15/16 15:20 09/15/16 15:20 09/15/16 15:20 Intake & Output 09/14/16 09/15/16 09/16/16 06:59 06:59 06:59 Intake Total 1270 1538 600 Output Total 600 1550 200 Balance 670 -12 400 Weight 112.6 kg Exam: General appearance: PRESENT: no acute distress, cooperative, well-developed, well-nourished Head exam: PRESENT: atraumatic, normocephalic Eye exam: PRESENT: conjunctiva slightly pale, PERRLA. ABSENT: scleral icterus Neck exam: ABSENT: JVD Respiratory exam: PRESENT: Diminished breath sounds. ABSENT: crackles, rales, rhonchi, unlabored, wheezes Cardiovascular exam: PRESENT: Regular rate rhythm -+S1, +S2. ABSENT: diastolic murmur, systolic murmur GI/Abdominal exam: PRESENT: normal bowel sounds, soft. ABSENT: guarding, mass, tenderness Extremities exam: Bilateral grade 1 lower extremity pitting edema Neurological exam: PRESENT: alert, awake, oriented to person, place and time. Skin exam: PRESENT: dry, warm, left leg is wrapped up with gauze and Silvadene cream which was thought to be improving as reported, the erythematous portion on the upper part of his right leg is also resolving. Results Laboratory Results: 09/15/16 04:24 09/15/16 04:24 09/15/16 09/15/16 04:24 04:24 WBC 8.8 RBC 3.62 L Hgb 11.0 L Hct 32.0 L MCV 88 MCH 30.2 MCHC 34.2 RDW 13.8 Plt Count 313 Seg Neutrophils % 74.0 Lymphocytes % 14.6 Monocytes % 6.6 Eosinophils % 4.6 Basophils % 0.2 Absolute Neutrophils 6.5 Absolute Lymphocytes 1.3 Absolute Monocytes 0.6 Absolute Eosinophils 0.4 Absolute Basophils 0.0 Sodium 142.8 Potassium 4.0 Chloride 106 Carbon Dioxide 26 Anion Gap 11 BUN 38 H Creatinine 3.73 H Est GFR ( Amer) 20 L Est GFR (Non-Af Amer) 16 L Glucose 122 H Calcium 9.0 09/08/16 05:22 Creatine Kinase 575 H Impressions: Chest X-Ray 09/04/16 15:12 IMPRESSION: NO SIGNIFICANT RADIOGRAPHIC FINDING IN THE CHEST. Lower Extremity CT 09/05/16 00:00 IMPRESSION: DIFFUSE EDEMA/ INFLAMMATION IN THE SUBCUTANEOUS FATTY TISSUES. DIFFUSE SKIN THICKENING. NO SOFT TISSUE ABSCESS. NO SIGNIFICANT BONY FINDINGS. Renal Ultrasound 09/07/16 00:00 IMPRESSION: NORMAL, SOMEWHAT LIMITED RENAL ULTRASOUND. Assessment & Plan - Diagnosis (1) Acute kidney injury Is this a current diagnosis for this admission?: YesPlan: Due to contrast-induced nephropathy causing ATN with concomitant mild urinary retention. Currently kidney function has been unchanged and stable for the last 3 days. Continues to make good amount of urine output. He does not require any more renal replacement therapy. If the patient's kidney function continues to be either stable or continues to improve from here I think patient can be discharged in the next couple of days. If he does not get discharged I will be happy to see him as a follow-up in my office in 2 weeks with repeat basic metabolic panel about couple days prior to his follow-up visit appointment with me. (2) Contrast dye induced nephropathy Is this a current diagnosis for this admission?: Yes (3) Urinary retention Is this a current diagnosis for this admission?: YesPlan: Madsen catheter has been removed. Monitor urine output. 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 Borjas this morning. - Time Time with patient: 15-25 minutes
[2016-09-15] MEDS: SIMVASTATIN 40 MG TABLET PO SCH (22:34)
[2016-09-16 04:34] LABS: ABSOLUTE EOSINOPHILS # (AUTO) 0.3 10^3/uL (0.0-0.6); ABSOLUTE LYMPHOCYTES (AUTO) 1.3 10^3/uL (0.5-4.7); ABSOLUTE MONOCYTES (AUTO) 0.5 10^3/uL (0.1-1.4); ABSOLUTE NEUT (AUTO) 5.9 10^3/uL (1.7-8.2); BASOPHILS % (AUTO) 0.2 % (0-2); EOSINOPHILS % (AUTO) 3.9 % (0-6); HEMOGLOBIN 11.3 g/dL (13.5-17.0); HGB HCT DIFFERENCE 0.9; LYMPHOCYTES % (AUTO) 16.2 % (13-45); MEAN CORPUSCULAR HEMOGLOBIN 30.3 pg (27.0-33.4); MEAN CORPUSCULAR HGB CONC 34.2 g/dL (32.0-36.0); MEAN CORPUSCULAR VOLUME 89 fl (80-97); MONOCYTES % (AUTO) 6.3 % (3-13); RED BLOOD COUNT 3.73 10^6/uL (4.35-5.55); RED CELL DISTRIBUTION WIDTH 13.9 % (11.5-14.0); SEGMENTED NEUTROPHILS % (AUTO) 73.4 % (42-78)
[2016-09-16 04:49] LABS: ANION GAP 10 (5-19); BLOOD UREA NITROGEN 40 mg/dL (7-20); CARBON DIOXIDE 27 mmol/L (22-30); CHLORIDE 105 mmol/L (98-107); CREATININE RESULT 3.43 mg/dL (0.52-1.25); GLUCOSE 103 mg/dL (75-110); PHOSPHORUS 5.3 mg/dL (2.5-4.5); POTASSIUM 4.1 mmol/L (3.6-5.0); SODIUM 142.1 mmol/L (137-145)
[2016-09-16] MEDS: CLINDAMYCIN HCL 150 MG CAPSULE PO SCH ×2 (06:12→12:01)
[2016-09-16] MEDS: GABAPENTIN 300 MG CAPSULE PO SCH ×3 (06:12→22:33)
[2016-09-16] MEDS: INSULIN GLARGINE,HUM.REC.ANLOG 1,000 UNIT/10 ML UNIT SUBCUT SCH ×2 (08:26→22:33)
[2016-09-16] MEDS: INSULIN LISPRO 100 UNIT/ML 3 ML VIAL SUBCUT SCH ×2 (08:27→12:09)
[2016-09-16] MEDS: ASPIRIN 81 MG TABLET, ENT COATED PO SCH (10:29)
[2016-09-16] MEDS: BUMETANIDE 1 MG TABLET PO SCH (10:30)
[2016-09-16] MEDS: METOPROLOL SUCCINATE 50 MG TAB.SR.24H PO SCH (10:32)
[2016-09-16] MEDS: SILVER SULFADIAZINE 1% CREAM 50 GM TP SCH (10:33)
[2016-09-16] MEDS: LACTOBACILLUS ACIDOPHILUS 250 MG TAB PO SCH ×2 (10:36→18:18)
--- NOTE | 2016-09-16 12:14 | PDOC PROGRESS REPORT ---
Subjective Progress Note for:: 09/16/16 Subjective:: Patient states that his left leg feels more swollen today. He denies fever, chills, headache, chest pain, shortness of breath, abdominal pain, nausea, vomiting. Physical Exam Vital Signs: Temp Pulse Resp BP Pulse Ox 98.5 F 78 18 145/74 H 99 09/16/16 08:21 09/16/16 08:21 09/16/16 08:21 09/16/16 08:21 09/16/16 08:21 Intake & Output 09/15/16 09/16/16 09/17/16 06:59 06:59 06:59 Intake Total 1538 1025 Output Total 1550 500 Balance -12 525 Weight 112.1 kg GENERAL: No acute distress HEENT: Conjunctiva clear, nonicteric, moist mucous membranes, no JVD, midline trachea RESPIRATORY: Clear to auscultation bilaterally, no wheezes, no rhonchi CARDIAC: Regular rate and rhythm, no murmurs/gallops/rubs ABDOMEN: Soft, nondistended, nontender, positive bowel sounds, no rebound, no guarding EXTREMETIES: Pitting edema in bilateral lower extremities (left greater than right) NEUROLOGIC: Alert, oriented to person/place/time, CN's grossly intact, no focal deficits SKIN: Erythema/induration in left lower extremity slightly worse over the past 24 hours, large superficial open wound to lateral left lower extremity PSYCH: Normal mood, normal affect Results Laboratory Results: 09/16/16 04:17 09/16/16 04:17 09/16/16 09/16/16 04:17 04:17 WBC 8.0 RBC 3.73 L Hgb 11.3 L Hct 33.0 L MCV 89 MCH 30.3 MCHC 34.2 RDW 13.9 Plt Count 300 Seg Neutrophils % 73.4 Lymphocytes % 16.2 Monocytes % 6.3 Eosinophils % 3.9 Basophils % 0.2 Absolute Neutrophils 5.9 Absolute Lymphocytes 1.3 Absolute Monocytes 0.5 Absolute Eosinophils 0.3 Absolute Basophils 0.0 Sodium 142.1 Potassium 4.1 Chloride 105 Carbon Dioxide 27 Anion Gap 10 BUN 40 H Creatinine 3.43 H Est GFR ( Amer) 22 L Est GFR (Non-Af Amer) 18 L Glucose 103 Calcium 9.0 Phosphorus 5.3 H 09/08/16 05:22 Creatine Kinase 575 H Impressions: Chest X-Ray 09/04/16 15:12 IMPRESSION: NO SIGNIFICANT RADIOGRAPHIC FINDING IN THE CHEST. Lower Extremity CT 09/05/16 00:00 IMPRESSION: DIFFUSE EDEMA/ INFLAMMATION IN THE SUBCUTANEOUS FATTY TISSUES. DIFFUSE SKIN THICKENING. NO SOFT TISSUE ABSCESS. NO SIGNIFICANT BONY FINDINGS. Renal Ultrasound 09/07/16 00:00 IMPRESSION: NORMAL, SOMEWHAT LIMITED RENAL ULTRASOUND. Assessment & Plan - Diagnosis (1) SIRS (systemic inflammatory response syndrome) Is this a current diagnosis for this admission?: YesPlan: Secondary to left lower extremity cellulitis. Resolved. (2) Left leg cellulitis Is this a current diagnosis for this admission?: YesPlan: Left lower extremity looks worse since conversion to oral clindamycin 2 days ago. I highly suspect drug-resistant infection such as MRSA. Discontinue oral clindamycin and start patient on IV Zyvox. I want to avoid IV vancomycin and Bactrim secondary to acute kidney injury. Hopefully patient will respond to IV Zyvox as this can be transitioned to oral Zyvox upon discharge. (3) Acute kidney injury Is this a current diagnosis for this admission?: YesPlan: Likely secondary to contrast nephropathy. Iodinated contrast noted as adverse drug reaction. Kidney function is slowly improving. Dr. Ryder of nephrology following and has started patient on Bumex. Continue to hold lisinopril. I would like to see patients kidney function improved prior to discharging home. (4) Coronary artery disease Is this a current diagnosis for this admission?: YesPlan: Continue aspirin, Plavix, Toprol-XL, simvastatin. (5) Edema Is this a current diagnosis for this admission?: YesPlan: Continue Bumex. 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 Continue Lantus 50 units every morning and 60 units subcu nightly. Continue Humalog 15 units q. before meals. Continue sliding scale insulin coverage. Hemoglobin A1c 6.9. (7) Thrombocytopenia Is this a current diagnosis for this admission?: YesPlan: Resolved. (8) Morbid obesity with BMI of 40.0-44.9, adult Is this a current diagnosis for this admission?: Yes - Time Time Spent with patient: 35 or more minutes Anticipated discharge: Home Within: within 72 hours
[2016-09-16] MEDS ORDERED: LINEZOLID 600 MG RTU 300 ML IV ONE (12:30)
[2016-09-16] MEDS: TAMSULOSIN HCL 0.4 MG CAP.SR.24H PO SCH (18:18)
[2016-09-16] MEDS: SIMVASTATIN 40 MG TABLET PO SCH (22:33)
[2016-09-16] MEDS: LINEZOLID 300 ML IV SCH (22:34)
[2016-09-16] MEDS: INSULIN LISPRO 100 UNIT/ML 3 ML VIAL SUBCUT PRN (22:34)
[2016-09-17 05:23] LABS: ABSOLUTE EOSINOPHILS # (AUTO) 0.3 10^3/uL (0.0-0.6); ABSOLUTE LYMPHOCYTES (AUTO) 1.2 10^3/uL (0.5-4.7); ABSOLUTE MONOCYTES (AUTO) 0.6 10^3/uL (0.1-1.4); ABSOLUTE NEUT (AUTO) 6.6 10^3/uL (1.7-8.2); BASOPHILS % (AUTO) 0.1 % (0-2); EOSINOPHILS % (AUTO) 3.4 % (0-6); HEMATOCRIT 32.1 % (37.9-51.0); HEMOGLOBIN 10.9 g/dL (13.5-17.0); HGB HCT DIFFERENCE 0.6; LYMPHOCYTES % (AUTO) 14.1 % (13-45); MEAN CORPUSCULAR HEMOGLOBIN 30.4 pg (27.0-33.4); MEAN CORPUSCULAR HGB CONC 34.1 g/dL (32.0-36.0); MEAN CORPUSCULAR VOLUME 89 fl (80-97); MONOCYTES % (AUTO) 6.6 % (3-13); RED BLOOD COUNT 3.59 10^6/uL (4.35-5.55); RED CELL DISTRIBUTION WIDTH 13.6 % (11.5-14.0); SEGMENTED NEUTROPHILS % (AUTO) 75.8 % (42-78); WHITE BLOOD COUNT 8.7 10^3/uL (4.0-10.5)
[2016-09-17 05:39] LABS: ANION GAP 9 (5-19); BLOOD UREA NITROGEN 40 mg/dL (7-20); CARBON DIOXIDE 28 mmol/L (22-30); CHLORIDE 104 mmol/L (98-107); CREATININE RESULT 3.33 mg/dL (0.52-1.25); GLUCOSE 96 mg/dL (75-110); POTASSIUM 4.5 mmol/L (3.6-5.0); SODIUM 140.8 mmol/L (137-145)
[2016-09-17] MEDS: GABAPENTIN 300 MG CAPSULE PO SCH ×3 (06:09→22:49)
[2016-09-17] MEDS: HEPARIN SOD (PORCINE) 5,000 UNIT/ML 1 ML SYRINGE SUBCUT SCH ×3 (06:10→22:49)
[2016-09-17] MEDS: LINEZOLID 300 ML IV SCH ×2 (10:25→22:49)
[2016-09-17] MEDS: BUMETANIDE 1 MG TABLET PO SCH (10:26)
[2016-09-17] MEDS: ASPIRIN 81 MG TABLET, ENT COATED PO SCH (10:26)
[2016-09-17] MEDS: METOPROLOL SUCCINATE 50 MG TAB.SR.24H PO SCH (10:27)
[2016-09-17] MEDS: CLOPIDOGREL BISULFATE 75 MG TABLET PO SCH (10:27)
[2016-09-17] MEDS: INSULIN GLARGINE,HUM.REC.ANLOG 1,000 UNIT/10 ML UNIT SUBCUT SCH ×2 (10:28→22:49)
[2016-09-17] MEDS: LACTOBACILLUS ACIDOPHILUS 250 MG TAB PO SCH ×2 (10:28→18:02)
[2016-09-17] MEDS ORDERED: CEFEPIME 1 GM/D5W RTU 50 ML IV SCH (10:45)
--- NOTE | 2016-09-17 10:55 | PDOC PROGRESS REPORT ---
Subjective Progress Note for:: 09/17/16 Subjective:: Patient states that his left leg feels more swollen today. He denies fever, chills, headache, chest pain, shortness of breath, abdominal pain, nausea, vomiting. Physical Exam Vital Signs: Temp Pulse Resp BP Pulse Ox 98.5 F 73 18 130/56 H 96 09/17/16 08:00 09/17/16 08:00 09/17/16 08:00 09/17/16 08:00 09/17/16 08:00 Intake & Output 09/16/16 09/17/16 09/18/16 06:59 06:59 06:59 Intake Total 1025 2120 Output Total 500 Balance 525 2120 Weight 112.1 kg GENERAL: No acute distress HEENT: Conjunctiva clear, nonicteric, moist mucous membranes, no JVD, midline trachea RESPIRATORY: Clear to auscultation bilaterally, no wheezes, no rhonchi CARDIAC: Regular rate and rhythm, no murmurs/gallops/rubs ABDOMEN: Soft, nondistended, nontender, positive bowel sounds, no rebound, no guarding EXTREMETIES: Pitting edema in bilateral lower extremities (left greater than right) NEUROLOGIC: Alert, oriented to person/place/time, CN's grossly intact, no focal deficits SKIN: Erythema/induration in left lower extremity slightly worse over the past 24 hours, large superficial open wound to lateral left lower extremity PSYCH: Normal mood, normal affect Results Laboratory Results: 09/17/16 04:52 09/17/16 04:52 09/17/16 09/17/16 04:52 04:52 WBC 8.7 RBC 3.59 L Hgb 10.9 L Hct 32.1 L MCV 89 MCH 30.4 MCHC 34.1 RDW 13.6 Plt Count 314 Seg Neutrophils % 75.8 Lymphocytes % 14.1 Monocytes % 6.6 Eosinophils % 3.4 Basophils % 0.1 Absolute Neutrophils 6.6 Absolute Lymphocytes 1.2 Absolute Monocytes 0.6 Absolute Eosinophils 0.3 Absolute Basophils 0.0 Sodium 140.8 Potassium 4.5 Chloride 104 Carbon Dioxide 28 Anion Gap 9 BUN 40 H Creatinine 3.33 H Est GFR ( Amer) 23 L Est GFR (Non-Af Amer) 19 L Glucose 96 Calcium 9.0 09/08/16 05:22 Creatine Kinase 575 H Impressions: Chest X-Ray 09/04/16 15:12 IMPRESSION: NO SIGNIFICANT RADIOGRAPHIC FINDING IN THE CHEST. Lower Extremity CT 09/05/16 00:00 IMPRESSION: DIFFUSE EDEMA/ INFLAMMATION IN THE SUBCUTANEOUS FATTY TISSUES. DIFFUSE SKIN THICKENING. NO SOFT TISSUE ABSCESS. NO SIGNIFICANT BONY FINDINGS. Renal Ultrasound 09/07/16 00:00 IMPRESSION: NORMAL, SOMEWHAT LIMITED RENAL ULTRASOUND. Assessment & Plan - Diagnosis (1) SIRS (systemic inflammatory response syndrome) Is this a current diagnosis for this admission?: YesPlan: Secondary to left lower extremity cellulitis. Resolved. (2) Left leg cellulitis Is this a current diagnosis for this admission?: YesPlan: Left lower extremity looks worse since conversion IV Zyvox, IV clindamycin, and IV Zosyn to oral clindamycin 3days ago. I highly suspect drug-resistant infection such as MRSA or possibly Pseudomonas given history of diabetes. Continue IV Zyvox day #2. Start cefepime for improved gram-negative and antipseudomonal coverage. CT scan of left leg done earlier in admission was negative for deep space fluid collection. Left lower extremity Doppler was negative for DVT. I want to avoid IV vancomycin and Bactrim secondary to acute kidney injury. At this point since patient has failed transition to oral antibiotic I would like to complete 14 day course of IV antibiotic once we find a regimen that he responds to. We will probably have to wait until his kidney function improves prior to placing PICC line in preparation for discharge. (3) Acute kidney injury Is this a current diagnosis for this admission?: YesPlan: Likely secondary to contrast nephropathy. Iodinated contrast noted as adverse drug reaction. Kidney function is slowly improving. Dr. Ryder of nephrology following and has started patient on Bumex. Continue to hold lisinopril. I would like to see patients kidney function improved prior to discharging home. (4) Coronary artery disease Is this a current diagnosis for this admission?: YesPlan: Continue aspirin, Plavix, Toprol-XL, simvastatin. 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 Decrease Lantus 50 units twice daily. Continue sliding scale insulin coverage. Hemoglobin A1c 6.9. (7) Thrombocytopenia Is this a current diagnosis for this admission?: YesPlan: Resolved. (8) Morbid obesity with BMI of 40.0-44.9, adult Is this a current diagnosis for this admission?: Yes - Time Time Spent with patient: 35 or more minutes
[2016-09-17] MEDS: INSULIN LISPRO 100 UNIT/ML 3 ML VIAL SUBCUT PRN ×2 (11:48→18:06)
[2016-09-17] MEDS: CEFEPIME HCL 1 GM in DEXTROSE 5%-WATER 50 ML IV SCH (12:53)
--- NOTE | 2016-09-17 15:47 | PDOC PROGRESS REPORT ---
Subjective Progress Note for:: 09/17/16 Subjective:: Patient's leg started to become swollen a little bit more yesterday so patient is now back to IV antibiotics per Dr. Borjas. I did not that he remains to be stable and does not really have much complaints. Physical Exam Vital Signs: Temp Pulse Resp BP Pulse Ox 98.3 F 72 19 134/64 H 97 09/17/16 11:20 09/17/16 11:20 09/17/16 11:20 09/17/16 11:20 09/17/16 11:20 Intake & Output 09/16/16 09/17/16 09/18/16 06:59 06:59 06:59 Intake Total 1025 2120 Output Total 500 Balance 525 2120 Weight 112.1 kg Exam: General appearance: PRESENT: no acute distress, cooperative, well-developed, well-nourished Head exam: PRESENT: atraumatic, normocephalic Eye exam: PRESENT: conjunctiva pink, PERRLA. ABSENT: scleral icterus Neck exam: ABSENT: JVD Respiratory exam: PRESENT: Diminished breath sounds. ABSENT: crackles, rales, rhonchi, unlabored, wheezes Cardiovascular exam: PRESENT: Regular rate rhythm -+S1, +S2. ABSENT: diastolic murmur, systolic murmur GI/Abdominal exam: PRESENT: normal bowel sounds, soft. ABSENT: guarding, mass, tenderness Extremities exam: Grade 2 bilateral lower extremity pitting edema, left greater than the right Neurological exam: PRESENT: alert, awake, oriented to person, place and time. Skin exam:PRESENT: dry, warm, left lower extremity cellulitis seems to be improved compared to last week in terms of erythema and swelling. There is some points with some small pinpoint drainage coming out but other than that the vesicular lesions were all dried up compared to last week. Results Laboratory Results: 09/17/16 04:52 09/17/16 04:52 09/17/16 09/17/16 04:52 04:52 WBC 8.7 RBC 3.59 L Hgb 10.9 L Hct 32.1 L MCV 89 MCH 30.4 MCHC 34.1 RDW 13.6 Plt Count 314 Seg Neutrophils % 75.8 Lymphocytes % 14.1 Monocytes % 6.6 Eosinophils % 3.4 Basophils % 0.1 Absolute Neutrophils 6.6 Absolute Lymphocytes 1.2 Absolute Monocytes 0.6 Absolute Eosinophils 0.3 Absolute Basophils 0.0 Sodium 140.8 Potassium 4.5 Chloride 104 Carbon Dioxide 28 Anion Gap 9 BUN 40 H Creatinine 3.33 H Est GFR ( Amer) 23 L Est GFR (Non-Af Amer) 19 L Glucose 96 Calcium 9.0 09/08/16 05:22 Creatine Kinase 575 H Impressions: Chest X-Ray 09/04/16 15:12 IMPRESSION: NO SIGNIFICANT RADIOGRAPHIC FINDING IN THE CHEST. Lower Extremity CT 09/05/16 00:00 IMPRESSION: DIFFUSE EDEMA/ INFLAMMATION IN THE SUBCUTANEOUS FATTY TISSUES. DIFFUSE SKIN THICKENING. NO SOFT TISSUE ABSCESS. NO SIGNIFICANT BONY FINDINGS. Renal Ultrasound 09/07/16 00:00 IMPRESSION: NORMAL, SOMEWHAT LIMITED RENAL ULTRASOUND. Assessment & Plan - Diagnosis (1) Acute kidney injury Is this a current diagnosis for this admission?: YesPlan: Continues to very slowly improved with adequate urine output. Continue to monitor kidney function. Continue Bumex (2) Contrast dye induced nephropathy Is this a current diagnosis for this admission?: Yes (3) Urinary retention Is this a current diagnosis for this admission?: Yes (4) SIRS (systemic inflammatory response syndrome) Is this a current diagnosis for this admission?: YesPlan: Resolved. (5) Left leg cellulitis Is this a current diagnosis for this admission?: YesPlan: On antibiotics per primary service. (6) Coronary artery disease Is this a current diagnosis for this admission?: Yes (7) Edema Is this a current diagnosis for this admission?: YesPlan: Very slowly improving. 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
[2016-09-17] MEDS: TAMSULOSIN HCL 0.4 MG CAP.SR.24H PO SCH (18:02)
[2016-09-17] MEDS: SIMVASTATIN 40 MG TABLET PO SCH (22:49)
[2016-09-18] MEDS: HEPARIN SOD (PORCINE) 5,000 UNIT/ML 1 ML SYRINGE SUBCUT SCH ×3 (05:49→22:33)
[2016-09-18] MEDS: GABAPENTIN 300 MG CAPSULE PO SCH ×3 (05:49→22:33)
[2016-09-18] MEDS: INSULIN GLARGINE,HUM.REC.ANLOG 1,000 UNIT/10 ML UNIT SUBCUT SCH ×2 (07:37→22:33)
[2016-09-18 09:10] LABS: ABSOLUTE EOSINOPHILS # (AUTO) 0.3 10^3/uL (0.0-0.6); ABSOLUTE LYMPHOCYTES (AUTO) 1.2 10^3/uL (0.5-4.7); ABSOLUTE MONOCYTES (AUTO) 0.5 10^3/uL (0.1-1.4); ABSOLUTE NEUT (AUTO) 6.6 10^3/uL (1.7-8.2); BASOPHILS % (AUTO) 0.1 % (0-2); EOSINOPHILS % (AUTO) 3.4 % (0-6); HEMATOCRIT 31.6 % (37.9-51.0); HEMOGLOBIN 10.8 g/dL (13.5-17.0); HGB HCT DIFFERENCE 0.8; LYMPHOCYTES % (AUTO) 13.7 % (13-45); MEAN CORPUSCULAR HEMOGLOBIN 30.2 pg (27.0-33.4); MEAN CORPUSCULAR HGB CONC 34.1 g/dL (32.0-36.0); MEAN CORPUSCULAR VOLUME 89 fl (80-97); MONOCYTES % (AUTO) 6.3 % (3-13); RED BLOOD COUNT 3.56 10^6/uL (4.35-5.55); RED CELL DISTRIBUTION WIDTH 13.7 % (11.5-14.0); SEGMENTED NEUTROPHILS % (AUTO) 76.5 % (42-78); WHITE BLOOD COUNT 8.6 10^3/uL (4.0-10.5)
[2016-09-18 09:25] LABS: ANION GAP 11 (5-19); BLOOD UREA NITROGEN 35 mg/dL (7-20); CALCIUM 8.9 mg/dL (8.4-10.2); CARBON DIOXIDE 26 mmol/L (22-30); CHLORIDE 103 mmol/L (98-107); CREATININE RESULT 3.26 mg/dL (0.52-1.25); GLUCOSE 123 mg/dL (75-110); POTASSIUM 4.3 mmol/L (3.6-5.0); SODIUM 140.4 mmol/L (137-145)
[2016-09-18] MEDS: ASPIRIN 81 MG TABLET, ENT COATED PO SCH (10:41)
[2016-09-18] MEDS: LACTOBACILLUS ACIDOPHILUS 250 MG TAB PO SCH ×2 (10:41→17:11)
[2016-09-18] MEDS: CLOPIDOGREL BISULFATE 75 MG TABLET PO SCH (10:41)
[2016-09-18] MEDS: BUMETANIDE 1 MG TABLET PO SCH (10:43)
[2016-09-18] MEDS: METOPROLOL SUCCINATE 50 MG TAB.SR.24H PO SCH (10:44)
[2016-09-18] MEDS: LINEZOLID 300 ML IV SCH ×2 (10:48→22:33)
[2016-09-18] MEDS: INSULIN LISPRO 100 UNIT/ML 3 ML VIAL SUBCUT PRN ×2 (12:10→17:10)
[2016-09-18] MEDS: CEFEPIME HCL 1 GM in DEXTROSE 5%-WATER 50 ML IV SCH (13:24)
--- NOTE | 2016-09-18 13:39 | PDOC PROGRESS REPORT ---
Subjective Progress Note for:: 09/18/16 Subjective:: Patient states that his left leg feels about the same. He denies fever, chills , headache, chest pain, shortness of breath, abdominal pain, nausea, vomiting. Physical Exam Vital Signs: Temp Pulse Resp BP Pulse Ox 98.6 F 82 19 156/65 H 97 09/18/16 07:51 09/18/16 07:51 09/18/16 07:51 09/18/16 07:51 09/18/16 07:51 Intake & Output 09/17/16 09/18/16 09/19/16 06:59 06:59 06:59 Intake Total 2120 1290 Output Total 575 Balance 2120 715 Weight 112.1 kg GENERAL: No acute distress HEENT: Conjunctiva clear, nonicteric, moist mucous membranes, no JVD, midline trachea RESPIRATORY: Clear to auscultation bilaterally, no wheezes, no rhonchi CARDIAC: Regular rate and rhythm, no murmurs/gallops/rubs ABDOMEN: Soft, nondistended, nontender, positive bowel sounds, no rebound, no guarding EXTREMETIES: Pitting edema in bilateral lower extremities (left greater than right) NEUROLOGIC: Alert, oriented to person/place/time, CN's grossly intact, no focal deficits SKIN: Erythema/induration in left lower extremity slightly worse over the past 24 hours, large superficial open wound to lateral left lower extremity PSYCH: Normal mood, normal affect Results Laboratory Results: 09/18/16 08:40 09/18/16 08:40 09/18/16 09/18/16 08:40 08:40 WBC 8.6 RBC 3.56 L Hgb 10.8 L Hct 31.6 L MCV 89 MCH 30.2 MCHC 34.1 RDW 13.7 Plt Count 297 Seg Neutrophils % 76.5 Lymphocytes % 13.7 Monocytes % 6.3 Eosinophils % 3.4 Basophils % 0.1 Absolute Neutrophils 6.6 Absolute Lymphocytes 1.2 Absolute Monocytes 0.5 Absolute Eosinophils 0.3 Absolute Basophils 0.0 Sodium 140.4 Potassium 4.3 Chloride 103 Carbon Dioxide 26 Anion Gap 11 BUN 35 H Creatinine 3.26 H Est GFR ( Amer) 23 L Est GFR (Non-Af Amer) 19 L Glucose 123 H Calcium 8.9 09/16/16 12:35 Nasophary ([facility] Only) MRSA Surveillance Culture - Final NO MRSA RECOVERED 09/08/16 05:22 Creatine Kinase 575 H Impressions: Chest X-Ray 09/04/16 15:12 IMPRESSION: NO SIGNIFICANT RADIOGRAPHIC FINDING IN THE CHEST. Lower Extremity CT 09/05/16 00:00 IMPRESSION: DIFFUSE EDEMA/ INFLAMMATION IN THE SUBCUTANEOUS FATTY TISSUES. DIFFUSE SKIN THICKENING. NO SOFT TISSUE ABSCESS. NO SIGNIFICANT BONY FINDINGS. Renal Ultrasound 09/07/16 00:00 IMPRESSION: NORMAL, SOMEWHAT LIMITED RENAL ULTRASOUND. Assessment & Plan - Diagnosis (1) SIRS (systemic inflammatory response syndrome) Is this a current diagnosis for this admission?: YesPlan: Secondary to left lower extremity cellulitis. Resolved. (2) Left leg cellulitis Is this a current diagnosis for this admission?: YesPlan: Left lower extremity looks worse since conversion IV Zyvox, IV clindamycin, and IV Zosyn to oral clindamycin 3days ago. I highly suspect drug-resistant infection such as MRSA or possibly Pseudomonas given history of diabetes. Continue IV Zyvox day #3 and cefepime #2. Patient is making poor clinical improvement. I would like to check MRI today. CT scan of left leg done earlier in admission was negative for deep space fluid collection. Left lower extremity Doppler was negative for DVT. I want to avoid IV vancomycin and Bactrim secondary to acute kidney injury. At this point since patient has failed transition to oral antibiotic I would like to complete 14 day course of IV antibiotic once we find a regimen that he responds to. We will probably have to wait until his kidney function improves prior to placing PICC line in preparation for discharge. (3) Acute kidney injury Is this a current diagnosis for this admission?: YesPlan: Likely secondary to contrast nephropathy. Iodinated contrast noted as adverse drug reaction. Kidney function is slowly improving. Dr. Ryder of nephrology following and has started patient on Bumex. Continue to hold lisinopril. I would like to see patients kidney function improved prior to discharging home. (4) Coronary artery disease Is this a current diagnosis for this admission?: YesPlan: Continue aspirin, Plavix, Toprol-XL, simvastatin. 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 Lantus 50 units twice daily. Continue sliding scale insulin coverage. Hemoglobin A1c 6.9. (7) Thrombocytopenia Is this a current diagnosis for this admission?: Yes (8) Morbid obesity with BMI of 40.0-44.9, adult Is this a current diagnosis for this admission?: Yes - Time Time Spent with patient: 35 or more minutes
--- NOTE | 2016-09-18 13:39 | RADIOLOGY REPORT (SQ) ---
EXAM DESCRIPTION: MRI LT LOWER EXTREMITY WITHOUT COMPLETED DATE/TIME: 09/18/2016 1:18 pm REASON FOR STUDY: refractory LLE cellulitis COMPARISON: None. TECHNIQUE: Multiplanar imaging of the left tibia-fibula to include T1, T1 fat sat, T2 fat sat, inver yong recovery sequences without contrast. CONTRAST TYPE AND DOSE: None. RENAL FUNCTION: Not applicable. LIMITATIONS: None. FINDINGS: BONE MARROW: No marrow signal alteration. Specifically no marrow replacement or marrow ed teresita. No evidence for osteomyelitis. No cortical break through. SOFT TISSUES: Diffuse subcutaneous edema. No abscess. OTHER: No other significant finding. IMPRESSION: Cellulitis. No evidence of osteomyelitis. TECHNICAL DOCUMENTATION: JOB ID: [id number] [facility]- All Rights Reserved
[2016-09-18] MEDS: TAMSULOSIN HCL 0.4 MG CAP.SR.24H PO SCH (17:11)
[2016-09-18] MEDS: SIMVASTATIN 40 MG TABLET PO SCH (22:33)
[2016-09-19 05:33] LABS: ABSOLUTE EOSINOPHILS # (AUTO) 0.3 10^3/uL (0.0-0.6); ABSOLUTE LYMPHOCYTES (AUTO) 1.2 10^3/uL (0.5-4.7); ABSOLUTE MONOCYTES (AUTO) 0.5 10^3/uL (0.1-1.4); ABSOLUTE NEUT (AUTO) 5.4 10^3/uL (1.7-8.2); BASOPHILS % (AUTO) 0.2 % (0-2); EOSINOPHILS % (AUTO) 4.1 % (0-6); HEMATOCRIT 31.6 % (37.9-51.0); HEMOGLOBIN 10.8 g/dL (13.5-17.0); HGB HCT DIFFERENCE 0.8; LYMPHOCYTES % (AUTO) 15.9 % (13-45); MEAN CORPUSCULAR HEMOGLOBIN 30.7 pg (27.0-33.4); MEAN CORPUSCULAR HGB CONC 34.2 g/dL (32.0-36.0); MEAN CORPUSCULAR VOLUME 90 fl (80-97); MONOCYTES % (AUTO) 6.5 % (3-13); RED BLOOD COUNT 3.51 10^6/uL (4.35-5.55); RED CELL DISTRIBUTION WIDTH 13.7 % (11.5-14.0); SEGMENTED NEUTROPHILS % (AUTO) 73.3 % (42-78); WHITE BLOOD COUNT 7.4 10^3/uL (4.0-10.5)
[2016-09-19] MEDS: GABAPENTIN 300 MG CAPSULE PO SCH ×3 (05:47→22:19)
[2016-09-19] MEDS: HEPARIN SOD (PORCINE) 5,000 UNIT/ML 1 ML SYRINGE SUBCUT SCH ×3 (05:47→22:19)
[2016-09-19 05:53] LABS: ANION GAP 8 (5-19); BLOOD UREA NITROGEN 37 mg/dL (7-20); CARBON DIOXIDE 28 mmol/L (22-30); CHLORIDE 103 mmol/L (98-107); CREATININE RESULT 3.24 mg/dL (0.52-1.25); GLUCOSE 107 mg/dL (75-110); MAGNESIUM 1.7 mg/dL (1.6-2.3); POTASSIUM 4.2 mmol/L (3.6-5.0); SODIUM 139.4 mmol/L (137-145)
[2016-09-19] MEDS: INSULIN GLARGINE,HUM.REC.ANLOG 1,000 UNIT/10 ML UNIT SUBCUT SCH ×2 (08:26→22:19)
--- NOTE | 2016-09-19 09:31 | PDOC PROGRESS REPORT ---
Subjective Progress Note for:: 09/19/16 Subjective:: Patient states that his left leg feels about the same. He denies fever, chills, headache, chest pain, shortness of breath, abdominal pain, nausea, vomiting. Physical Exam Vital Signs: Temp Pulse Resp BP Pulse Ox 97.8 F 78 20 145/60 H 95 09/19/16 08:00 09/19/16 08:00 09/19/16 08:00 09/19/16 08:00 09/19/16 08:00 Intake & Output 09/18/16 09/19/16 09/20/16 06:59 06:59 06:59 Intake Total 1290 1720 Output Total 575 Balance 715 1720 Weight 112.1 kg GENERAL: No acute distress HEENT: Conjunctiva clear, nonicteric, moist mucous membranes, no JVD, midline trachea RESPIRATORY: Clear to auscultation bilaterally, no wheezes, no rhonchi CARDIAC: Regular rate and rhythm, no murmurs/gallops/rubs ABDOMEN: Soft, nondistended, nontender, positive bowel sounds, no rebound, no guarding EXTREMETIES: Pitting edema in bilateral lower extremities (left greater than right) NEUROLOGIC: Alert, oriented to person/place/time, CN's grossly intact, no focal deficits SKIN: Erythema/induration in left lower extremity slightly improved over the past 24 hours, large superficial open wound to lateral left lower extremity now with dry eschar PSYCH: Normal mood, normal affect Results Laboratory Results: 09/19/16 04:55 09/19/16 04:55 09/18/16 09/18/16 09/19/16 08:40 08:40 04:55 WBC 8.6 7.4 RBC 3.56 L 3.51 L Hgb 10.8 L 10.8 L Hct 31.6 L 31.6 L MCV 89 90 MCH 30.2 30.7 MCHC 34.1 34.2 RDW 13.7 13.7 Plt Count 297 255 Seg Neutrophils % 76.5 73.3 Lymphocytes % 13.7 15.9 Monocytes % 6.3 6.5 Eosinophils % 3.4 4.1 Basophils % 0.1 0.2 Absolute Neutrophils 6.6 5.4 Absolute Lymphocytes 1.2 1.2 Absolute Monocytes 0.5 0.5 Absolute Eosinophils 0.3 0.3 Absolute Basophils 0.0 0.0 Sodium 140.4 Potassium 4.3 Chloride 103 Carbon Dioxide 26 Anion Gap 11 BUN 35 H Creatinine 3.26 H Est GFR ( Amer) 23 L Est GFR (Non-Af Amer) 19 L Glucose 123 H Calcium 8.9 Magnesium 09/19/16 04:55 WBC RBC Hgb Hct MCV MCH MCHC RDW Plt Count Seg Neutrophils % Lymphocytes % Monocytes % Eosinophils % Basophils % Absolute Neutrophils Absolute Lymphocytes Absolute Monocytes Absolute Eosinophils Absolute Basophils Sodium 139.4 Potassium 4.2 Chloride 103 Carbon Dioxide 28 Anion Gap 8 BUN 37 H Creatinine 3.24 H Est GFR ( Amer) 23 L Est GFR (Non-Af Amer) 19 L Glucose 107 Calcium 9.0 Magnesium 1.7 09/16/16 12:35 Nasophary (Mrsa Only) MRSA Surveillance Culture - Final NO MRSA RECOVERED 09/08/16 05:22 Creatine Kinase 575 H Impressions: Chest X-Ray 09/04/16 15:12 IMPRESSION: NO SIGNIFICANT RADIOGRAPHIC FINDING IN THE CHEST. Lower Extremity CT 09/05/16 00:00 IMPRESSION: DIFFUSE EDEMA/ INFLAMMATION IN THE SUBCUTANEOUS FATTY TISSUES. DIFFUSE SKIN THICKENING. NO SOFT TISSUE ABSCESS. NO SIGNIFICANT BONY FINDINGS. Renal Ultrasound 09/07/16 00:00 IMPRESSION: NORMAL, SOMEWHAT LIMITED RENAL ULTRASOUND. Lower Extremity MRI 09/18/16 00:00 IMPRESSION: Cellulitis. No evidence of osteomyelitis. Assessment & Plan - Diagnosis (1) SIRS (systemic inflammatory response syndrome) Is this a current diagnosis for this admission?: Yes (2) Leg wound, left Is this a current diagnosis for this admission?: YesPlan: Check left lower extremity arterial Doppler to rule out arterial insufficiency as cause given patient's nonhealing wounds/infection, diabetes. Venous Doppler negative for DVT. (3) Left leg cellulitis Is this a current diagnosis for this admission?: YesPlan: Left lower extremity looks worse since conversion IV Zyvox, IV clindamycin, and IV Zosyn to oral clindamycin 3days ago. I highly suspect drug-resistant infection such as MRSA or possibly Pseudomonas given history of diabetes. Continue IV Zyvox day #4 and cefepime #3. Patient is making poor clinical improvement. MRI left leg 09/18/2016 showed no abscess or osteomyelitis. CT scan of left leg done earlier in admission was negative for deep space fluid collection. Left lower extremity Doppler was negative for DVT. I want to avoid IV vancomycin and Bactrim secondary to acute kidney injury. At this point since patient has failed transition to oral antibiotic I would like to complete 14 day course of IV antibiotic once we find a regimen that he responds to. We will probably have to wait until his kidney function improves prior to placing PICC line in preparation for discharge. Consult surgery for recommendations given refractory nature of infection and venous stasis ulcers. Discussed case with Dr. Dowell of [facility] infectious disease. She recommended arterial Doppler to rule out noninfectious causes of lower extremity findings given lack of fever. She will discuss case with her attending physician and call me back for further antibiotic recommendations. (4) Acute kidney injury Is this a current diagnosis for this admission?: YesPlan: Likely secondary to contrast nephropathy. Iodinated contrast noted as adverse drug reaction. Kidney function is slowly improving. Dr. Ryder of nephrology following and has started patient on Bumex. Continue to hold lisinopril. I would like to see patients kidney function improved prior to discharging home. (5) Coronary artery disease Is this a current diagnosis for this admission?: YesPlan: Continue aspirin, Plavix, Toprol-XL, simvastatin. (6) Edema Is this a current diagnosis for this admission?: YesPlan: Increase Bumex to 2 mg daily. 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 Lantus 50 units twice daily. Continue sliding scale insulin coverage. Hemoglobin A1c 6.9. (8) Thrombocytopenia Is this a current diagnosis for this admission?: Yes (9) Morbid obesity with BMI of 40.0-44.9, adult Is this a current diagnosis for this admission?: Yes
[2016-09-19] MEDS: METOPROLOL SUCCINATE 50 MG TAB.SR.24H PO SCH (10:32)
[2016-09-19] MEDS: LACTOBACILLUS ACIDOPHILUS 250 MG TAB PO SCH ×2 (10:33→17:33)
[2016-09-19] MEDS: BUMETANIDE 1 MG TABLET PO SCH (10:33)
[2016-09-19] MEDS: ASPIRIN 81 MG TABLET, ENT COATED PO SCH (10:33)
[2016-09-19] MEDS: CLOPIDOGREL BISULFATE 75 MG TABLET PO SCH (10:33)
[2016-09-19] MEDS: LINEZOLID 300 ML IV SCH ×2 (10:37→22:19)
[2016-09-19] MEDS: CEFEPIME HCL 1 GM in DEXTROSE 5%-WATER 50 ML IV SCH (14:51)
[2016-09-19] MEDS: TAMSULOSIN HCL 0.4 MG CAP.SR.24H PO SCH (17:33)
[2016-09-19] MEDS: INSULIN LISPRO 100 UNIT/ML 3 ML VIAL SUBCUT PRN (22:19)
[2016-09-19] MEDS: SIMVASTATIN 40 MG TABLET PO SCH (22:19)
[2016-09-19] MEDS: SILVER SULFADIAZINE 1% CREAM 50 GM TP SCH (22:19)
--- NOTE | 2016-09-20 00:11 | CONSULTATION REPORT E ---
Consultation Report NAME: RUSSELL PARRA : 1950 AGE: 65Y DATE: 09/19/2016 407 A TO: SHERRY JASMINE M.D. FROM: DIANA DUNAWAY Requesting Physician REASON FOR CONSULTATION: Consultation from the hospitalist for a left leg cellulitis and a scab with possible questionable debridement of that area. HISTORY OF PRESENT ILLNESS: The patient has been recurrently getting admitted with a history of cellulitis of the left leg with edema and a swollen leg and this time re-admitted with a history of increasing pain and redness in that area, and he did have a venous Doppler study to rule out a DVT. Primarily the patient complains of pain and swelling in the left leg, and also there is a significant amount of rash and scabbing on the left lateral aspect of the leg. He was seen by prover, who told him it is not any dermatological conditions. He underwent MRI to rule out any abscess, no abscess, and he was suppose to see vascular speciality. In the meantime, he got admitted to the hospital. PAST MEDICAL HISTORY: 1. History of hypertension. 2. History of cellulitis, recurrent. REVIEW OF FURTHER SYSTEMS: Per examination. PHYSICAL EXAMINATION: GENERAL: He is awake, alert, oriented. VITAL SIGNS: No fever. HEAD AND NECK: No lymphadenopathy. No masses. RESPIRATORY: Both lungs are clear to auscultation. CARDIOVASCULAR: Both heart sounds are regular. No murmurs. No gallops. ABDOMEN: Soft, benign, nontender. No masses palpable. No hernia palpable. EXTREMITIES: Normally perfused. In the left leg on the mid part of the left leg there is some edema and erythema present to indicate cellulitis. In the lateral aspect of the left leg, around 9 to 10 cm size and multiple dry scabs present and underlying dry scabs. No evidence of any purulence. No abscess is present. The foot itself is warm, well perfused. IMPRESSION OVERALL: Cellulitis of the left leg with dry scabs, recurrent cellulitis but ruled out a DVT on venous Doppler as per the hospitalist. PLAN: To continue IV antibiotic therapy and then refer him as an outpatient to vascular specialty. No need for surgical intervention needed at this point. No drainable abscess at this point. All the case and management plan discussed with the hospitalist thoroughly. Thank you for allowing us to participate in this patient's care. DICTATING PHYSICIAN: SHERRY JASMINE M.D. [id number] PHY#: [id number] ID: [id number] JOB#: [id number] ACCT: [id number] cc:SHERRY JASMINE M.D. >
[2016-09-20 05:21] LABS: ABSOLUTE EOSINOPHILS # (AUTO) 0.3 10^3/uL (0.0-0.6); ABSOLUTE LYMPHOCYTES (AUTO) 1.3 10^3/uL (0.5-4.7); ABSOLUTE MONOCYTES (AUTO) 0.5 10^3/uL (0.1-1.4); ABSOLUTE NEUT (AUTO) 5.6 10^3/uL (1.7-8.2); BASOPHILS % (AUTO) 0.2 % (0-2); EOSINOPHILS % (AUTO) 4.5 % (0-6); HEMATOCRIT 31.1 % (37.9-51.0); HEMOGLOBIN 10.8 g/dL (13.5-17.0); HGB HCT DIFFERENCE 1.3; LYMPHOCYTES % (AUTO) 16.5 % (13-45); MEAN CORPUSCULAR HGB CONC 34.8 g/dL (32.0-36.0); MEAN CORPUSCULAR VOLUME 89 fl (80-97); MONOCYTES % (AUTO) 6.5 % (3-13); RED CELL DISTRIBUTION WIDTH 13.5 % (11.5-14.0); SEGMENTED NEUTROPHILS % (AUTO) 72.3 % (42-78); WHITE BLOOD COUNT 7.8 10^3/uL (4.0-10.5)
[2016-09-20 05:48] LABS: ANION GAP 11 (5-19); BLOOD UREA NITROGEN 35 mg/dL (7-20); CARBON DIOXIDE 26 mmol/L (22-30); CHLORIDE 102 mmol/L (98-107); GLUCOSE 74 mg/dL (75-110); POTASSIUM 4.3 mmol/L (3.6-5.0); SODIUM 139.3 mmol/L (137-145)
[2016-09-20] MEDS: HEPARIN SOD (PORCINE) 5,000 UNIT/ML 1 ML SYRINGE SUBCUT SCH ×3 (06:03→23:25)
[2016-09-20] MEDS: GABAPENTIN 300 MG CAPSULE PO SCH ×2 (06:03→23:24)
[2016-09-20] MEDS: INSULIN GLARGINE,HUM.REC.ANLOG 1,000 UNIT/10 ML UNIT SUBCUT SCH ×2 (08:31→23:25)
[2016-09-20] MEDS: BUMETANIDE 1 MG TABLET PO SCH (09:41)
[2016-09-20] MEDS: LACTOBACILLUS ACIDOPHILUS 250 MG TAB PO SCH ×2 (09:43→18:17)
[2016-09-20] MEDS: METOPROLOL SUCCINATE 50 MG TAB.SR.24H PO SCH (09:43)
[2016-09-20] MEDS: ASPIRIN 81 MG TABLET, ENT COATED PO SCH (09:44)
[2016-09-20] MEDS: CLOPIDOGREL BISULFATE 75 MG TABLET PO SCH (09:45)
[2016-09-20] MEDS: SILVER SULFADIAZINE 1% CREAM 50 GM TP SCH ×2 (09:48→23:30)
[2016-09-20] MEDS: LINEZOLID 300 ML IV SCH ×2 (10:14→23:26)
--- NOTE | 2016-09-20 10:22 | PDOC PROGRESS REPORT ---
Subjective Progress Note for:: 09/20/16 Subjective:: Patient states that his left leg feels better than yesterday. He denies fever, chills, headache, chest pain, shortness of breath, abdominal pain, nausea, vomiting. Physical Exam Vital Signs: Temp Pulse Resp BP Pulse Ox 97.5 F 81 19 142/64 H 97 09/20/16 07:48 09/20/16 08:48 09/20/16 07:48 09/20/16 07:48 09/20/16 07:48 Intake & Output 09/19/16 09/20/16 09/21/16 06:59 06:59 06:59 Intake Total 1720 1240 Balance 1720 1240 Weight 112.1 kg GENERAL: No acute distress HEENT: Conjunctiva clear, nonicteric, moist mucous membranes, no JVD, midline trachea RESPIRATORY: Clear to auscultation bilaterally, no wheezes, no rhonchi CARDIAC: Regular rate and rhythm, no murmurs/gallops/rubs ABDOMEN: Soft, nondistended, nontender, positive bowel sounds, no rebound, no guarding EXTREMETIES: Pitting edema in bilateral lower extremities (left greater than right) NEUROLOGIC: Alert, oriented to person/place/time, CN's grossly intact, no focal deficits SKIN: Erythema/induration in left lower extremity slightly improved over the past 24 hours, large superficial open wound to lateral left lower extremity now with dry eschar PSYCH: Normal mood, normal affect Results Laboratory Results: 09/20/16 04:11 09/20/16 04:11 09/20/16 09/20/16 04:11 04:11 WBC 7.8 RBC 3.50 L Hgb 10.8 L Hct 31.1 L MCV 89 MCH 31.0 MCHC 34.8 RDW 13.5 Plt Count 242 Seg Neutrophils % 72.3 Lymphocytes % 16.5 Monocytes % 6.5 Eosinophils % 4.5 Basophils % 0.2 Absolute Neutrophils 5.6 Absolute Lymphocytes 1.3 Absolute Monocytes 0.5 Absolute Eosinophils 0.3 Absolute Basophils 0.0 Sodium 139.3 Potassium 4.3 Chloride 102 Carbon Dioxide 26 Anion Gap 11 BUN 35 H Creatinine 3.10 H Est GFR ( Amer) 25 L Est GFR (Non-Af Amer) 20 L Glucose 74 L Calcium 9.0 09/08/16 05:22 Creatine Kinase 575 H Impressions: Chest X-Ray 09/04/16 15:12 IMPRESSION: NO SIGNIFICANT RADIOGRAPHIC FINDING IN THE CHEST. Lower Extremity CT 09/05/16 00:00 IMPRESSION: DIFFUSE EDEMA/ INFLAMMATION IN THE SUBCUTANEOUS FATTY TISSUES. DIFFUSE SKIN THICKENING. NO SOFT TISSUE ABSCESS. NO SIGNIFICANT BONY FINDINGS. Renal Ultrasound 09/07/16 00:00 IMPRESSION: NORMAL, SOMEWHAT LIMITED RENAL ULTRASOUND. Lower Extremity MRI 09/18/16 00:00 IMPRESSION: Cellulitis. No evidence of osteomyelitis. Assessment & Plan - Diagnosis (1) SIRS (systemic inflammatory response syndrome) Is this a current diagnosis for this admission?: YesPlan: Secondary to left lower extremity cellulitis. Resolved. (2) Leg wound, left Is this a current diagnosis for this admission?: YesPlan: Left lower extremity arterial Doppler pending. Venous Doppler negative for DVT. Start Santyl dressing changes. Patient will need to follow-up with wound clinic. He was seen by surgery on 09/19/2016 and they did not feel there is any need for surgical intervention at this time. (3) Left leg cellulitis Is this a current diagnosis for this admission?: YesPlan: Left lower extremity looks worse since conversion IV Zyvox, IV clindamycin, and IV Zosyn to oral clindamycin on 09/14/2026. I highly suspect drug-resistant infection such as MRSA or possibly Pseudomonas given history of diabetes. Continue IV Zyvox day #5 and cefepime #4. Patient is making poor clinical improvement, likely secondary to microvascular disease associated with diabetes mellitus. MRI left leg 09/18/2016 showed no abscess or osteomyelitis. CT scan of left leg done earlier in admission was negative for deep space fluid collection. Left lower extremity venous Doppler was negative for DVT. Left lower extremity arterial Doppler pending I want to avoid IV vancomycin and Bactrim secondary to acute kidney injury. At this point since patient has failed transition to oral antibiotic I would like to complete 14 day course of IV antibiotic once we find a regimen that he responds to. We will probably have to wait until his kidney function improves prior to placing PICC line in preparation for discharge. Consult surgery for recommendations given refractory nature of infection and venous stasis ulcers. Discussed case with Dr. Dowell of [facility] infectious disease on 09/19/2016. She recommended arterial Doppler to rule out noninfectious causes of lower extremity findings given lack of fever. She advised discontinuation of all antibiotics as patient does not have fever or elevated white blood count. I am reluctant to do this as patient's leg got significantly worse last week when IV antibiotics were discontinued and has been making improvement with reinitiation of IV antibiotics. (4) Acute kidney injury Is this a current diagnosis for this admission?: YesPlan: Likely secondary to contrast nephropathy. Iodinated contrast noted as adverse drug reaction. Kidney function is slowly improving. Dr. Ryder of nephrology following and has started patient on Bumex. Continue to hold lisinopril. I would like to see patients kidney function improved prior to discharging home. (5) Coronary artery disease Is this a current diagnosis for this admission?: YesPlan: Continue aspirin, Plavix, Toprol-XL, simvastatin. (6) Edema Is this a current diagnosis for this admission?: YesPlan: Increased Bumex to 2 mg daily. 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 Lantus 50 units twice daily. Continue sliding scale insulin coverage. Hemoglobin A1c 6.9. (8) Thrombocytopenia Is this a current diagnosis for this admission?: Yes (9) Morbid obesity with BMI of 40.0-44.9, adult Is this a current diagnosis for this admission?: Yes - Time Time Spent with patient: 35 or more minutes Anticipated discharge: Home with Homehealth
[2016-09-20] MEDS ORDERED: COLLAGENASE CLOSTRIDIUM HIST. OINT 30 GM TP ONE (11:00)
[2016-09-20] MEDS: CEFEPIME HCL 1 GM in DEXTROSE 5%-WATER 50 ML IV SCH (13:27)
[2016-09-20] MEDS: TAMSULOSIN HCL 0.4 MG CAP.SR.24H PO SCH (18:17)
[2016-09-20] MEDS: SIMVASTATIN 40 MG TABLET PO SCH (23:25)
[2016-09-21 05:38] LABS: ABSOLUTE EOSINOPHILS # (AUTO) 0.5 10^3/uL (0.0-0.6); ABSOLUTE LYMPHOCYTES (AUTO) 1.5 10^3/uL (0.5-4.7); ABSOLUTE MONOCYTES (AUTO) 0.5 10^3/uL (0.1-1.4); ABSOLUTE NEUT (AUTO) 5.7 10^3/uL (1.7-8.2); BASOPHILS % (AUTO) 0.1 % (0-2); EOSINOPHILS % (AUTO) 5.6 % (0-6); HEMATOCRIT 30.4 % (37.9-51.0); HEMOGLOBIN 10.7 g/dL (13.5-17.0); HGB HCT DIFFERENCE 1.7; LYMPHOCYTES % (AUTO) 17.9 % (13-45); MEAN CORPUSCULAR HEMOGLOBIN 30.9 pg (27.0-33.4); MEAN CORPUSCULAR HGB CONC 35.2 g/dL (32.0-36.0); MEAN CORPUSCULAR VOLUME 88 fl (80-97); MONOCYTES % (AUTO) 6.7 % (3-13); RED BLOOD COUNT 3.46 10^6/uL (4.35-5.55); RED CELL DISTRIBUTION WIDTH 13.7 % (11.5-14.0); SEGMENTED NEUTROPHILS % (AUTO) 69.7 % (42-78); WHITE BLOOD COUNT 8.2 10^3/uL (4.0-10.5)
[2016-09-21] MEDS: HEPARIN SOD (PORCINE) 5,000 UNIT/ML 1 ML SYRINGE SUBCUT SCH ×3 (05:43→23:36)
[2016-09-21 05:52] LABS: ANION GAP 11 (5-19); BLOOD UREA NITROGEN 35 mg/dL (7-20); CARBON DIOXIDE 29 mmol/L (22-30); CHLORIDE 100 mmol/L (98-107); GLUCOSE 68 mg/dL (75-110); POTASSIUM 4.1 mmol/L (3.6-5.0); SODIUM 139.8 mmol/L (137-145)
[2016-09-21] MEDS: LINEZOLID 300 ML IV SCH ×2 (09:53→23:32)
[2016-09-21] MEDS: ASPIRIN 81 MG TABLET, ENT COATED PO SCH (09:53)
[2016-09-21] MEDS: CLOPIDOGREL BISULFATE 75 MG TABLET PO SCH (09:53)
[2016-09-21] MEDS: GABAPENTIN 300 MG CAPSULE PO SCH ×2 (09:54→23:35)
[2016-09-21] MEDS: METOPROLOL SUCCINATE 50 MG TAB.SR.24H PO SCH (09:54)
[2016-09-21] MEDS: LACTOBACILLUS ACIDOPHILUS 250 MG TAB PO SCH ×2 (09:55→17:27)
[2016-09-21] MEDS: BUMETANIDE 1 MG TABLET PO SCH (09:55)
[2016-09-21] MEDS: COLLAGENASE CLOSTRIDIUM HIST. OINT 30 GM TP SCH (10:02)
[2016-09-21] MEDS: SILVER SULFADIAZINE 1% CREAM 50 GM TP SCH ×2 (12:34→23:36)
[2016-09-21] MEDS: INSULIN LISPRO 100 UNIT/ML 3 ML VIAL SUBCUT PRN ×2 (12:41→17:27)
[2016-09-21] MEDS: CEFEPIME HCL 1 GM in DEXTROSE 5%-WATER 50 ML IV SCH (12:41)
[2016-09-21] MEDS: TAMSULOSIN HCL 0.4 MG CAP.SR.24H PO SCH (17:27)
--- NOTE | 2016-09-21 17:37 | PDOC PROGRESS REPORT ---
Subjective Progress Note for:: 09/21/16 Subjective:: Patient is seen with nursing and at bedside. Patient reports his leg is greatly improved. Patient denies chest pain, shortness of breath, abdominal pain, nausea, vomiting , fevers, chills, diarrhea, constipation, headache, new onset weakness. Physical Exam Vital Signs: Temp Pulse Resp BP Pulse Ox 98.4 F 77 20 145/60 H 98 09/20/16 23:42 09/20/16 23:42 09/20/16 23:42 09/20/16 23:42 09/20/16 23:42 Intake & Output 09/20/16 09/21/16 09/22/16 06:59 06:59 06:59 Intake Total 1240 2373 Output Total 1020 Balance 1240 1353 Weight 112.1 kg 112 kg Exam: GENERAL: A+Ox3, no acute distress HEENT: Normocephalic, no scleral icterus, conjunctiva clear, EOEM intact, PERRLA , moist mucous membranes NECK: trachea midline, no JVD RESPIRATORY: CTAB CARDIAC: Regular rate and rhythm, no murmur/nanette/rub ABDOMEN: Soft, obese, no tenderness, no guarding, normal bowel sounds, negative Ruiz sign EXTREMITIES: no cyanosis, no clubbing, asymmetric 2+Pitting edema in left lower extremities NEUROLOGIC: Alert, oriented to person/place, not time, normal speech, cranial nerves grossly intact, tactile sensation intact in all extremities SKIN: very mild Erythema left lower extremity with area of healed prior blistering and hemorrhage PSYCHIATRIC: Normal mood, normal affect Results Laboratory Results: 09/21/16 04:39 09/21/16 04:39 09/21/16 09/21/16 04:39 04:39 WBC 8.2 RBC 3.46 L Hgb 10.7 L Hct 30.4 L MCV 88 MCH 30.9 MCHC 35.2 RDW 13.7 Plt Count 249 Seg Neutrophils % 69.7 Lymphocytes % 17.9 Monocytes % 6.7 Eosinophils % 5.6 Basophils % 0.1 Absolute Neutrophils 5.7 Absolute Lymphocytes 1.5 Absolute Monocytes 0.5 Absolute Eosinophils 0.5 Absolute Basophils 0.0 Sodium 139.8 Potassium 4.1 Chloride 100 Carbon Dioxide 29 Anion Gap 11 BUN 35 H Creatinine 2.90 H Est GFR ( Amer) 27 L Est GFR (Non-Af Amer) 22 L Glucose 68 L Calcium 9.0 09/08/16 05:22 Creatine Kinase 575 H Impressions: Chest X-Ray 09/04/16 15:12 IMPRESSION: NO SIGNIFICANT RADIOGRAPHIC FINDING IN THE CHEST. Lower Extremity CT 09/05/16 00:00 IMPRESSION: DIFFUSE EDEMA/ INFLAMMATION IN THE SUBCUTANEOUS FATTY TISSUES. DIFFUSE SKIN THICKENING. NO SOFT TISSUE ABSCESS. NO SIGNIFICANT BONY FINDINGS. Renal Ultrasound 09/07/16 00:00 IMPRESSION: NORMAL, SOMEWHAT LIMITED RENAL ULTRASOUND. Lower Extremity MRI 09/18/16 00:00 IMPRESSION: Cellulitis. No evidence of osteomyelitis. Assessment & Plan - Diagnosis (1) Sepsis affecting skin Is this a current diagnosis for this admission?: YesPlan: 2/2 to cellulitis. Patient on Zyvox and cefepime. (2) Left leg cellulitis Is this a current diagnosis for this admission?: YesPlan: Patient antibiotics on Zyvox cefepime and Current cultures are negative Tmax last 24 hrs 98.4. (3) Acute kidney injury Is this a current diagnosis for this admission?: YesPlan: This is likely secondary to contrast nephropathy, Although patient had a period of hypotension, and this could be associated with ATN.Reduced nephrotoxic agents by holding lisinopril, metformin, lasix, and vancomycin. Creatinine is improving. Renal ultrasound is normal. Appreciate nephrology input and patient received ultrafiltration once. No plans for dialysis. (4) Coronary artery disease Is this a current diagnosis for this admission?: YesPlan: Hold lisinopril in light of current kidney injury. 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 Lantus 50 units QHS and 40 units QAM and 10units of Lispro pre-meals in addition to SSI. (7) Morbid obesity with BMI of 40.0-44.9, adult Is this a current diagnosis for this admission?: Yes - Plan Summary Plan Summary: Patient failed transition to oral antibiotic. Continue IV antibiotics and have consulted Dr. Naty Boothe of the wound clinic to evaluate patient's arterial Doppler and lower extremity for possible local wound care and discharge. current discharge pending this. Patient's creatinine improving without need for hemodialysis.
[2016-09-21] MEDS: SIMVASTATIN 40 MG TABLET PO SCH (23:35)
[2016-09-21] MEDS: INSULIN GLARGINE,HUM.REC.ANLOG 1,000 UNIT/10 ML UNIT SUBCUT SCH (23:36)
[2016-09-22] MEDS: HEPARIN SOD (PORCINE) 5,000 UNIT/ML 1 ML SYRINGE SUBCUT SCH ×3 (07:01→22:56)
--- NOTE | 2016-09-22 08:13 | XCELERA REPORT ---
[address] [address] Lower Extremity Arterial Evaluation Name: RUSSELL PARRA Age: 65 yrs Gender: Male : 1950 Patient Status: Inpatient Patient Location: 4N\S\[facility]\S\A Study Date: 09/20/2016 09:17 AM Procedure: A color flow and duplex scan of the lower extremity arteries was performed on the left with velocity and waveform anaylsis. Reason For Study: LLE wounds, DM, check LLE art doppler Ordering Physician: DIANA DUNAWAY Performed By: Tay Casey Measurements and Calculations Right Left PORTFOLIO MGR PSV 201.1 cm/sec Prox PFA PSV 165.0 cm/sec Dist SFA PSV -185.2 cm/sec Dist Pop A PSV 142.5 cm/sec Dist KEIRY PSV 102.6 cm/sec Dist SPANISHER PSV -82.5 cm/sec Master Pedis PSV -135.9 -84.1 cm/sec Right Side Arterial Evaluation Triphasic waveform at the Dorsalis Pedis. Left Side Arterial Evaluation Normal velocity and triphasic waveforms noted from the Common Femoral artery to the infrageniculate vessels with well preserved crispness at the Dorsalis pedis. 0-19% stenosis at the DP artery. Ankle Brachial index was not done. Interpretation Summary Mild hemodynamically significant lesions in the left lower extremity only, on duplex imaging, at rest. : DIANA DUNAWAY > Hugo Boothe
[2016-09-22] MEDS: INSULIN GLARGINE,HUM.REC.ANLOG 1,000 UNIT/10 ML UNIT SUBCUT SCH ×2 (08:26→22:56)
[2016-09-22] MEDS: INSULIN LISPRO 100 UNIT/ML 3 ML VIAL SUBCUT SCH ×3 (08:26→17:07)
[2016-09-22] MEDS: ASPIRIN 81 MG TABLET, ENT COATED PO SCH (10:01)
[2016-09-22] MEDS: METOPROLOL SUCCINATE 50 MG TAB.SR.24H PO SCH (10:01)
[2016-09-22] MEDS: CLOPIDOGREL BISULFATE 75 MG TABLET PO SCH (10:01)
[2016-09-22] MEDS: AMLODIPINE BESYLATE 2.5 MG TABLET PO SCH (10:01)
[2016-09-22] MEDS: GABAPENTIN 300 MG CAPSULE PO SCH ×2 (10:01→22:56)
[2016-09-22] MEDS: LINEZOLID 300 ML IV SCH (10:01)
[2016-09-22] MEDS: COLLAGENASE CLOSTRIDIUM HIST. OINT 30 GM TP SCH (10:02)
[2016-09-22] MEDS: BUMETANIDE 1 MG TABLET PO SCH (10:02)
[2016-09-22] MEDS: LACTOBACILLUS ACIDOPHILUS 250 MG TAB PO SCH ×2 (10:02→17:42)
[2016-09-22] MEDS: SILVER SULFADIAZINE 1% CREAM 50 GM TP SCH ×2 (10:02→22:59)
[2016-09-22 10:20] LABS: ANION GAP 12 (5-19); BLOOD UREA NITROGEN 37 mg/dL (7-20); CALCIUM 9.3 mg/dL (8.4-10.2); CARBON DIOXIDE 30 mmol/L (22-30); CHLORIDE 98 mmol/L (98-107); CREATININE RESULT 3.23 mg/dL (0.52-1.25); GLUCOSE 136 mg/dL (75-110); POTASSIUM 4.3 mmol/L (3.6-5.0); SODIUM 140.3 mmol/L (137-145)
[2016-09-22] MEDS: INSULIN LISPRO 100 UNIT/ML 3 ML VIAL SUBCUT PRN (11:41)
[2016-09-22] MEDS: CEFEPIME HCL 1 GM in DEXTROSE 5%-WATER 50 ML IV SCH (11:41)
[2016-09-22] MEDS: TAMSULOSIN HCL 0.4 MG CAP.SR.24H PO SCH (17:42)
--- NOTE | 2016-09-22 17:49 | RADIOLOGY REPORT (SQ) ---
EXAM DESCRIPTION: FOOT RIGHT COMPLETE COMPLETED DATE/TIME: 09/22/2016 4:54 pm REASON FOR STUDY: midfoot pain COMPARISON: None. NUMBER OF VIEWS: Three views. TECHNIQUE: AP, lateral and oblique radiographic images acquired of the right foot. LIMITATIONS: None. FINDINGS: MINERALIZATION: Normal. BONES: No acute fracture or dislocation. 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 Plantar and dorsal calcaneal spurs are present. JOINTS: Degenerative joint changes seen in the 1st metatarsal-phalangeal joint. SOFT TISSUES: No soft tissue swelling. No foreign body. OTHER: No other significant finding. IMPRESSION: Calcaneal spurs and degenerative joint changes with no acute abnormality. TECHNICAL DOCUMENTATION: JOB ID: [id number] [employer]- All Rights Reserved
[2016-09-22] MEDS ORDERED: HYDROCODONE/ACETAMINOPHEN 5-325 MG TABLET PO PRN (18:56)
--- NOTE | 2016-09-22 18:56 | PDOC PROGRESS REPORT ---
Subjective Progress Note for:: 09/22/16 Subjective:: Patient is seen with nursing and at bedside. Patient complains of pain in his right midfoot. Patient denies chest pain, shortness of breath, abdominal pain, nausea, vomiting , fevers, chills, diarrhea, constipation, headache, new onset weakness. Physical Exam Vital Signs: Temp Pulse Resp BP Pulse Ox 98.7 F 75 17 140/63 H 96 09/21/16 20:16 09/21/16 20:16 09/21/16 20:16 09/21/16 20:16 09/21/16 20:16 Intake & Output 09/21/16 09/22/16 09/23/16 06:59 06:59 06:59 Intake Total 2373 1560 Output Total 1020 1350 Balance 1353 210 Weight 112 kg 112 kg Exam: GENERAL: A+Ox3, no acute distress HEENT: Normocephalic, no scleral icterus, conjunctiva clear, EOEM intact, PERRLA , moist mucous membranes NECK: trachea midline, no JVD RESPIRATORY: CTAB CARDIAC: Regular rate and rhythm, no murmur/nanette/rub ABDOMEN: Soft, obese, no tenderness, no guarding, normal bowel sounds, negative Ruiz sign EXTREMITIES: no cyanosis, no clubbing, asymmetric 2+Pitting edema in left lower extremity, tenderness to palpation in the midfoot of right lower extremity NEUROLOGIC: Alert, oriented to person/place, not time, normal speech, cranial nerves grossly intact, tactile sensation intact in all extremities SKIN: very mild Erythema left lower extremity with area of healed prior blistering and hemorrhage PSYCHIATRIC: Normal mood, normal affect Results Laboratory Results: 09/21/16 04:39 09/21/16 04:39 09/08/16 05:22 Creatine Kinase 575 H Impressions: Chest X-Ray 09/04/16 15:12 IMPRESSION: NO SIGNIFICANT RADIOGRAPHIC FINDING IN THE CHEST. Lower Extremity CT 09/05/16 00:00 IMPRESSION: DIFFUSE EDEMA/ INFLAMMATION IN THE SUBCUTANEOUS FATTY TISSUES. DIFFUSE SKIN THICKENING. NO SOFT TISSUE ABSCESS. NO SIGNIFICANT BONY FINDINGS. Renal Ultrasound 09/07/16 00:00 IMPRESSION: NORMAL, SOMEWHAT LIMITED RENAL ULTRASOUND. Lower Extremity MRI 09/18/16 00:00 IMPRESSION: Cellulitis. No evidence of osteomyelitis. Assessment & Plan - Diagnosis (1) Sepsis affecting skin Is this a current diagnosis for this admission?: YesPlan: 2/2 to cellulitis. Improved (2) Left leg cellulitis Is this a current diagnosis for this admission?: YesPlan: Plan to stop patient's IV antibiotics today. He has completed 18 days of therapy. Have discussed this with the idea provided. Will culture if patient worsens or develops a fever. Have concerns that patient's arterial duplex revealed stenosis. Patient is likely unable to receive noninvasive intervention at this time due to his underlying renal dysfunction. (3) Acute kidney injury Is this a current diagnosis for this admission?: YesPlan: This is likely secondary to contrast nephropathy, Although patient had a period of hypotension, and this could be associated with ATN.Reduced nephrotoxic agents by holding lisinopril, metformin, lasix, and vancomycin. Creatinine is improving. Renal ultrasound is normal. Appreciate nephrology input and patient received ultrafiltration once. No plans for dialysis. Stop Bumex at this time as I suspect that patient is mildly dehydrated (4) Coronary artery disease Is this a current diagnosis for this admission?: YesPlan: Hold lisinopril in light of current kidney injury. 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 Lantus 50 units QHS and 40 units QAM and 10units of Lispro pre-meals in addition to SSI. (7) Morbid obesity with BMI of 40.0-44.9, adult Is this a current diagnosis for this admission?: Yes (8) Acute gout due to renal impairment involving foot Qualifiers: Laterality: right Qualified Code(s): M10.371 - Gout due to renal impairment, right ankle and foot Is this a current diagnosis for this admission?: YesPlan: Place patient on prednisone 20 mg p.o. twice daily - Time Time Spent with patient: 35 or more minutes Medications reviewed and adjusted accordingly: Yes Anticipated discharge: Home with Homehealth Within: within 48 hours - Inpatient Certification Based on my medical assessment, after consideration of the patient's comorbidities, presenting symptoms, or acuity I expect that the services needed warrant INPATIENT care.: Yes I certify that my determination is in accordance with my understanding of Medicare's requirements for reasonable and necessary INPATIENT services [42 CFR 412.3e].: Yes Medical Necessity: Need for Pain Control, Need for IV Antibiotics Post Hospital Care: D/C Hide Handler Documentation
[2016-09-22] MEDS ORDERED: PREDNISONE 20 MG TABLET PO ONE (20:00)
[2016-09-22] MEDS: SIMVASTATIN 40 MG TABLET PO SCH (22:55)
[2016-09-23] MEDS: HEPARIN SOD (PORCINE) 5,000 UNIT/ML 1 ML SYRINGE SUBCUT SCH ×3 (05:46→22:16)
[2016-09-23 08:07] LABS: ABSOLUTE LYMPHOCYTES (AUTO) 0.8 10^3/uL (0.5-4.7); ABSOLUTE MONOCYTES (AUTO) 0.1 10^3/uL (0.1-1.4); ABSOLUTE NEUT (AUTO) 5.7 10^3/uL (1.7-8.2); BASOPHILS % (AUTO) 0.1 % (0-2); EOSINOPHILS % (AUTO) 0.3 % (0-6); HEMATOCRIT 31.4 % (37.9-51.0); HEMOGLOBIN 10.7 g/dL (13.5-17.0); HGB HCT DIFFERENCE 0.7; LYMPHOCYTES % (AUTO) 11.3 % (13-45); MEAN CORPUSCULAR HEMOGLOBIN 30.5 pg (27.0-33.4); MEAN CORPUSCULAR HGB CONC 34.1 g/dL (32.0-36.0); MEAN CORPUSCULAR VOLUME 89 fl (80-97); MONOCYTES % (AUTO) 2.2 % (3-13); RED BLOOD COUNT 3.51 10^6/uL (4.35-5.55); RED CELL DISTRIBUTION WIDTH 13.4 % (11.5-14.0); SEGMENTED NEUTROPHILS % (AUTO) 86.1 % (42-78); WHITE BLOOD COUNT 6.7 10^3/uL (4.0-10.5)
[2016-09-23] MEDS: INSULIN LISPRO 100 UNIT/ML 3 ML VIAL SUBCUT SCH ×3 (08:25→16:39)
[2016-09-23] MEDS: INSULIN LISPRO 100 UNIT/ML 3 ML VIAL SUBCUT PRN ×4 (08:25→22:17)
[2016-09-23] MEDS: INSULIN GLARGINE,HUM.REC.ANLOG 1,000 UNIT/10 ML UNIT SUBCUT SCH ×2 (08:25→22:16)
[2016-09-23 08:27] LABS: ANION GAP 10 (5-19); BLOOD UREA NITROGEN 44 mg/dL (7-20); CALCIUM 9.6 mg/dL (8.4-10.2); CARBON DIOXIDE 31 mmol/L (22-30); CHLORIDE 99 mmol/L (98-107); CREATININE RESULT 3.08 mg/dL (0.52-1.25); GLUCOSE 153 mg/dL (75-110); SODIUM 139.7 mmol/L (137-145)
--- NOTE | 2016-09-23 10:53 | PDOC CONSULTATION ---
Consultation Consult Date: 09/22/16 Attending physician:: JOIE DELGADILLO Consult reason:: Persisting cellulitis and swelling in the left lower extremity. Possible need for long-term vascular access. History of Present Illness Admission Date/PCP: 09/04/16 15:24 THOMAS EPLAEZ MD Patient complains of: Left leg pain and ulcer History of Present Illness: Over one month. The patient has also been treated for acute renal failure including at least one dialysis session. Past Medical History Cardiac Medical History: Reports: Coronary Artery Disease, Hyperlipidema, Hypertension Denies: Myocardial Infarction Pulmonary Medical History: Reports: Asthma, Pneumonia, Sleep Apnea - cpap did not help Denies: Bronchitis, Chronic Obstructive Pulmonary Disease (COPD), Tuberculosis Neurological Medical History: Reports: Ischemic CVA Denies: Seizures Endocrine Medical History: Reports: Diabetes Mellitus Type 2 Renal/ Medical History: Reports: Other - History of kidney stones in the past GI Medical History: Reports: Gastroesophageal Reflux Disease - rarely Denies: Hepatitis, Hiatal Hernia Musculoskeltal Medical History: Denies: Arthritis Psychiatric Medical History: Denies: Depression Hematology: Denies: Anemia, Sickle Cell Disease Past Surgical History Past Surgical History: Reports: Appendectomy, Cardiac Catheterization - Stent placed, Cholecystectomy, Coronary Artery Bypass Graft - 5 vessels Denies: Pacemaker Social History Lives with: Spouse/Significant other Smoking Status: Never Smoker Frequency of Alcohol Use: None Hx Recreational Drug Use: No Hx Prescription Drug Abuse: No - Advance Directive Resuscitation Status: Full Code Family History Family History: CAD, DM Parental Family History Reviewed: No Children Family History Reviewed: No Sibling(s) Family History Reviewed.: No Medication/Allergy Home Medications: Clopidogrel Bisulfate [Plavix 75 mg Tablet] 75 mg PO DAILY 09/04/16 Gabapentin [Neurontin 300 mg Capsule] 300 mg PO Q8 09/04/16 Insulin Aspart [Novolog Flexpen] 40 units SUBCUT ACP PRN 09/04/16 Lisinopril [Prinivil] 20 mg PO DAILY 09/04/16 Metformin HCl [Metformin HCl ER] 500 mg PO DAILY 09/04/16 Metoprolol Succinate [Toprol XL 100 mg Tablet] 100 mg PO DAILY 09/04/16 Simvastatin 40 mg PO QHS 09/04/16 Triamcinolone Acetonide [Aristocort 0.1% Cream] 1 applic TOP BID 09/04/16 Allergies/Adverse Reactions: No Known Allergies Allergy (Unverified 09/21/16 08:22) Physical Exam Vital Signs: Temp Pulse Resp BP Pulse Ox 98.1 F 76 16 133/60 H 94 09/23/16 07:43 09/23/16 07:43 09/23/16 07:43 09/23/16 07:43 09/23/16 07:43 Intake & Output 09/22/16 09/23/16 09/24/16 06:59 06:59 06:59 Intake Total 1560 1015 Output Total 1350 1500 Balance 210 -485 Weight 112 kg 112 kg Additional comments: Constitutional: Well-developed well-nourished gentleman, much increased body mass in the. No apparent acute distress. Eyes: Mucous membranes pink and moist, pupils equal and reactive to light. Conjunctiva normal. Cornea normal. ENT: Hearing grossly normal. External pinna normal to inspection. Teeth intact. Tongue normal to inspection. Respiratory breath sounds are present bilaterally, normal. Normal respiratory effort. Skin: Swelling, erythema, ulceration with scabbing in the left leg. Dimensions of ulceration approximately 15 x 8, seemingly very superficial Psychiatric: Judgment, memory, insight seem normal. Mood is pleasant and appropriate. Extremities: Upper extremities show normal range of movement. Pulses present noted to the radial arteries. Capillary refill normal. No cyanosis noted. No muscle wasting noted. Lower extremities show reduced range of movement, probably because of edema. Pulses present noted to the dorsalis pedis artery. Capillary refill normal. No cyanosis noted. No muscle wasting noted.Swelling, erythema, ulceration with scabbing in the left leg. Dimensions of ulceration approximately 15 x 8, seemingly very superficial Results Laboratory Results: 09/23/16 07:57 09/23/16 07:57 09/22/16 09/23/16 09/23/16 09:25 07:57 07:57 WBC 6.7 RBC 3.51 L Hgb 10.7 L Hct 31.4 L MCV 89 MCH 30.5 MCHC 34.1 RDW 13.4 Plt Count 220 Seg Neutrophils % 86.1 H Lymphocytes % 11.3 L Monocytes % 2.2 L Eosinophils % 0.3 Basophils % 0.1 Absolute Neutrophils 5.7 Absolute Lymphocytes 0.8 Absolute Monocytes 0.1 Absolute Eosinophils 0.0 Absolute Basophils 0.0 Sodium 139.7 Potassium 5.0 Chloride 99 Carbon Dioxide 31 H Anion Gap 10 BUN 44 H Creatinine 3.08 H Est GFR ( Amer) 25 L Est GFR (Non-Af Amer) 20 L Glucose 153 H Uric Acid 9.3 H Calcium 9.6 09/08/16 05:22 Creatine Kinase 575 H Impressions: Chest X-Ray 09/04/16 15:12 IMPRESSION: NO SIGNIFICANT RADIOGRAPHIC FINDING IN THE CHEST. Lower Extremity CT 09/05/16 00:00 IMPRESSION: DIFFUSE EDEMA/ INFLAMMATION IN THE SUBCUTANEOUS FATTY TISSUES. DIFFUSE SKIN THICKENING. NO SOFT TISSUE ABSCESS. NO SIGNIFICANT BONY FINDINGS. Renal Ultrasound 09/07/16 00:00 IMPRESSION: NORMAL, SOMEWHAT LIMITED RENAL ULTRASOUND. Lower Extremity MRI 09/18/16 00:00 IMPRESSION: Cellulitis. No evidence of osteomyelitis. Foot X-Ray 09/22/16 00:00 IMPRESSION: Calcaneal spurs and degenerative joint changes with no acute abnormality. Assessment & Plan - Diagnosis (1) Left leg cellulitis Is this a current diagnosis for this admission?: YesPlan: In this patient with left leg cellulitis, ulceration, the plan will be compression possibly oral antibiotic. A section and wound care would be ideal, topical Silvadene cream, compression with stockings and then possibly with the Unna boot. The patient will need long-term compression there is almost certainly stasis dermatitis as well. (2) Acute gout due to renal impairment involving foot Qualifiers: Laterality: right Qualified Code(s): M10.371 - Gout due to renal impairment, right ankle and foot Is this a current diagnosis for this admission?: Yes (3) Acute kidney injury Is this a current diagnosis for this admission?: Yes (4) Coronary artery disease Is this a current diagnosis for this admission?: Yes (5) Morbid obesity with BMI of 40.0-44.9, adult Is this a current diagnosis for this admission?: Yes (6) SIRS (systemic inflammatory response syndrome) Is this a current diagnosis for this admission?: Yes (7) Sepsis affecting skin Is this a current diagnosis for this admission?: Yes (8) Uncontrolled diabetes mellitus Qualifiers: Diabetes mellitus type: type 1 Diabetes mellitus complication status: with skin complications Diabetes mellitus complication detail: with other skin complication Qualified Code(s): E10.628 - Type 1 diabetes mellitus with other skin complications; E10.65 - Type 1 diabetes mellitus with hyperglycemia Is this a current diagnosis for this admission?: Yes - Plan Summary Plan Summary: Culture of the scabbed wound, daily to every other day Silvadene dressings. Compression with WESLY hose, SCDs involve involving for 30-40 mm compression stockings and possibly other measures. Ideally the patient will be treated as an outpatient wound care clinic. Thank you for the courtesy of this consultation.
[2016-09-23] MEDS: METOPROLOL SUCCINATE 50 MG TAB.SR.24H PO SCH (11:01)
[2016-09-23] MEDS: LACTOBACILLUS ACIDOPHILUS 250 MG TAB PO SCH ×2 (11:02→18:14)
[2016-09-23] MEDS: GABAPENTIN 300 MG CAPSULE PO SCH ×2 (11:03→22:16)
[2016-09-23] MEDS: CLOPIDOGREL BISULFATE 75 MG TABLET PO SCH (11:03)
[2016-09-23] MEDS: AMLODIPINE BESYLATE 2.5 MG TABLET PO SCH (11:03)
[2016-09-23] MEDS: ASPIRIN 81 MG TABLET, ENT COATED PO SCH (11:04)
[2016-09-23] MEDS: PREDNISONE 20 MG TABLET PO SCH ×2 (11:04→22:16)
[2016-09-23] MEDS: COLLAGENASE CLOSTRIDIUM HIST. OINT 30 GM TP SCH (11:15)
[2016-09-23] MEDS: SILVER SULFADIAZINE 1% CREAM 50 GM TP SCH ×2 (11:16→22:32)
--- NOTE | 2016-09-23 14:30 | PDOC PROGRESS REPORT ---
Subjective Progress Note for:: 09/23/16 Subjective:: Patient reports some improvement of pain in his right midfoot after the initiation of steroids. Patient denies chest pain, shortness of breath, abdominal pain, nausea, vomiting , fevers, chills, diarrhea, constipation, headache, new onset weakness. Patient reports improvement of his cellulitis. Physical Exam Vital Signs: Temp Pulse Resp BP Pulse Ox 98.5 F 77 18 134/48 H 92 09/22/16 23:58 09/22/16 23:58 09/22/16 23:58 09/22/16 23:58 09/22/16 23:58 Intake & Output 09/22/16 09/23/16 09/24/16 06:59 06:59 06:59 Intake Total 1560 1015 Output Total 1350 1500 Balance 210 -485 Weight 112 kg 112 kg Exam: GENERAL: A+Ox3, no acute distress HEENT: Normocephalic, no scleral icterus, conjunctiva clear, EOEM intact, PERRLA , moist mucous membranes NECK: trachea midline, no JVD RESPIRATORY: CTAB CARDIAC: Regular rate and rhythm, no murmur/nanette/rub ABDOMEN: Soft, obese, no tenderness, no guarding, normal bowel sounds, negative Ruiz sign EXTREMITIES: no cyanosis, no clubbing, asymmetric 1+Pitting edema in left lower extremity, mild tenderness to palpation in the midfoot of right lower extremity NEUROLOGIC: Alert, oriented to person/place, not time, normal speech, cranial nerves grossly intact, tactile sensation intact in all extremities SKIN: left lower extremity with area of healed prior blistering and hemorrhage; no erythema PSYCHIATRIC: Normal mood, normal affect Results Laboratory Results: 09/21/16 04:39 09/22/16 09:25 09/22/16 09/22/16 09:25 09:25 Sodium 140.3 Potassium 4.3 Chloride 98 Carbon Dioxide 30 Anion Gap 12 BUN 37 H Creatinine 3.23 H Est GFR ( Amer) 23 L Est GFR (Non-Af Amer) 19 L Glucose 136 H Uric Acid 9.3 H Calcium 9.3 09/08/16 05:22 Creatine Kinase 575 H Impressions: Chest X-Ray 09/04/16 15:12 IMPRESSION: NO SIGNIFICANT RADIOGRAPHIC FINDING IN THE CHEST. Lower Extremity CT 09/05/16 00:00 IMPRESSION: DIFFUSE EDEMA/ INFLAMMATION IN THE SUBCUTANEOUS FATTY TISSUES. DIFFUSE SKIN THICKENING. NO SOFT TISSUE ABSCESS. NO SIGNIFICANT BONY FINDINGS. Renal Ultrasound 09/07/16 00:00 IMPRESSION: NORMAL, SOMEWHAT LIMITED RENAL ULTRASOUND. Lower Extremity MRI 09/18/16 00:00 IMPRESSION: Cellulitis. No evidence of osteomyelitis. Foot X-Ray 09/22/16 00:00 IMPRESSION: Calcaneal spurs and degenerative joint changes with no acute abnormality. Assessment & Plan - Diagnosis (1) Sepsis affecting skin Is this a current diagnosis for this admission?: YesPlan: 2/2 to cellulitis. Improved (2) Left leg cellulitis Is this a current diagnosis for this admission?: YesPlan: Plan to stop patient's IV antibiotics today. He has completed 18 days of therapy. Have discussed this with the idea provided. Will culture if patient worsens or develops a fever. Have concerns that patient's arterial duplex revealed very mild stenosis. Patient is likely unable to receive noninvasive intervention at this time due to his underlying renal dysfunction. Patient has had no fever and cellulitis site improved. Discussed case with Dr. Boothe for OP wound care in wound care clinic. (3) Acute kidney injury Is this a current diagnosis for this admission?: YesPlan: This is likely secondary to contrast nephropathy, Although patient had a period of hypotension, and this could be associated with ATN.Reduced nephrotoxic agents by holding lisinopril, metformin, lasix, and vancomycin. Creatinine is improving after stopping bumex yesterday. Renal ultrasound is normal. Appreciate nephrology input and patient received ultrafiltration once. No plans for dialysis. (4) Coronary artery disease Is this a current diagnosis for this admission?: YesPlan: Hold lisinopril in light of current kidney injury. 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 Lantus 50 units QHS and 40 units QAM and 10units of Lispro pre-meals in addition to SSI. Anticipate short term worsening of blood sugar with the addition of prednisone (7) Acute gout due to renal impairment involving foot Qualifiers: Laterality: right Qualified Code(s): M10.371 - Gout due to renal impairment, right ankle and foot Is this a current diagnosis for this admission?: YesPlan: Place patient on prednisone 20 mg p.o. twice daily x5 days (8) Morbid obesity with BMI of 40.0-44.9, adult Is this a current diagnosis for this admission?: Yes - Time Time Spent with patient: 25-34 minutes Medications reviewed and adjusted accordingly: Yes Anticipated discharge: Home Within: within 48 hours
[2016-09-23] MEDS: TAMSULOSIN HCL 0.4 MG CAP.SR.24H PO SCH (18:14)
[2016-09-23] MEDS: SIMVASTATIN 40 MG TABLET PO SCH (22:16)
[2016-09-24] MEDS: HEPARIN SOD (PORCINE) 5,000 UNIT/ML 1 ML SYRINGE SUBCUT SCH (06:15)
[2016-09-24] MEDS: SILVER SULFADIAZINE 1% CREAM 50 GM TP SCH (09:26)
[2016-09-24] MEDS: INSULIN LISPRO 100 UNIT/ML 3 ML VIAL SUBCUT SCH (09:34)
[2016-09-24] MEDS: PREDNISONE 20 MG TABLET PO SCH (09:35)
[2016-09-24] MEDS: LACTOBACILLUS ACIDOPHILUS 250 MG TAB PO SCH (09:35)
[2016-09-24] MEDS: INSULIN GLARGINE,HUM.REC.ANLOG 1,000 UNIT/10 ML UNIT SUBCUT SCH (09:35)
[2016-09-24] MEDS: AMLODIPINE BESYLATE 2.5 MG TABLET PO SCH (09:35)
[2016-09-24] MEDS: CLOPIDOGREL BISULFATE 75 MG TABLET PO SCH (09:35)
[2016-09-24] MEDS: INSULIN LISPRO 100 UNIT/ML 3 ML VIAL SUBCUT PRN (09:35)
[2016-09-24] MEDS: GABAPENTIN 300 MG CAPSULE PO SCH (09:36)
[2016-09-24] MEDS: METOPROLOL SUCCINATE 50 MG TAB.SR.24H PO SCH (09:36)
[2016-09-24] MEDS: ASPIRIN 81 MG TABLET, ENT COATED PO SCH (09:36)
[2016-09-24] MEDS: COLLAGENASE CLOSTRIDIUM HIST. OINT 30 GM TP SCH (09:38)
[2016-09-24 09:56] LABS: ANION GAP 11 (5-19); BLOOD UREA NITROGEN 53 mg/dL (7-20); CALCIUM 9.7 mg/dL (8.4-10.2); CARBON DIOXIDE 29 mmol/L (22-30); CHLORIDE 101 mmol/L (98-107); CREATININE RESULT 2.49 mg/dL (0.52-1.25); GLUCOSE 244 mg/dL (75-110); POTASSIUM 5.1 mmol/L (3.6-5.0); SODIUM 141.2 mmol/L (137-145)
[2016-09-24 12:06] VITALS: BP 129/53
--- NOTE | 2016-09-24 13:45 | PDOC DISCHARGE SUMMARY ---
General - Admit/Disc Date/PCP Admission Date/Primary Care Provider: 09/04/16 15:24 THOMAS PELAEZ MD Discharge Date: 09/24/16 - Discharge Diagnosis (1) Sepsis affecting skin Is this a current diagnosis for this admission?: Yes (2) Left leg cellulitis Is this a current diagnosis for this admission?: Yes (3) Acute kidney injury Is this a current diagnosis for this admission?: Yes (4) Coronary artery disease Is this a current diagnosis for this admission?: Yes (5) Thrombocytopenia Is this a current diagnosis for this admission?: Yes (6) Uncontrolled diabetes mellitus Is this a current diagnosis for this admission?: Yes (7) Acute gout due to renal impairment involving foot Is this a current diagnosis for this admission?: Yes (8) Morbid obesity with BMI of 40.0-44.9, adult Is this a current diagnosis for this admission?: Yes - Additional Information Resuscitation Status: Full Code Discharge Diet: Cardiac, Diabetic Discharge Activity: Activity As Tolerated, Keep Legs Elevated, Slowly Increase Activity Home Medications: Clopidogrel Bisulfate [Plavix 75 mg Tablet] 75 mg PO DAILY 09/04/16 Gabapentin [Neurontin 300 mg Capsule] 300 mg PO Q8 09/04/16 Metoprolol Succinate [Toprol XL 100 mg Tablet] 100 mg PO DAILY 09/04/16 Simvastatin 40 mg PO QHS 09/04/16 Amlodipine Besylate [Norvasc 2.5 mg Tablet] 2.5 mg PO DAILY #30 tablet 09/24/16 Insulin Aspart [Novolog Insulin 100 Unit/1 ml 10 ml] 10 unit SUBCUT AC #10 ml Insulin Glargine,Hum.rec.anlog [Lantus Insulin 100 Unit/1 ml 10 ml] 40 unit SUBCUT QAM unit 09/24/16 Insulin Glargine,Hum.rec.anlog [Lantus Insulin 100 Unit/1 ml 10 ml] 50 unit SUBCUT QHS unit 09/24/16 Prednisone [Deltasone 20 mg Tablet] 20 mg PO Q12 #10 tablet 09/24/16 Silver Sulfadiazine [Silvadene 1% Cream 50 gm] 1 applic TP DAILY #1 tube History of Present Illness History of Present Illness: RUSSELL PARRA is a 65 year old male with past medical history of diabetes mellitus, chronic lower extremity edema, left lower extremity rash the presents with 2 day history of left leg pain and swelling. Patient was started on Augmentin on 09/03/2016 but has had worsening of his symptoms as well as high fevers and decreased appetite. Home medications have not been verified at the time of this dictation but according to patient's list include Lasix 40 mg daily, Plavix 75 mg daily, metformin 500 mg daily, Neurontin 300 mg 3 times a day, lisinopril 20 mg daily, Toprol-XL 100 mg daily, simvastatin 40 mg daily, Lantus 60 units nightly, aspirin 81 mg daily. Hospital Course Hospital Course: Patient had failed outpatient Augmentin and was found to be in sepsis on presentation. Patient was placed on Zosyn and Vancomycin and was admitted to the medical floor. Patient underwent CT of the leg with contrast due to concerns for deep tissue infection. Patient subsequently devloped nephropathy with an increase in creatinine to a peak of 4.59. Patient was seen by Dr. Ryder of nephrology. patient was felt to have evidence of contrast nephropathy and atn. Patient had a dialysis catheter placed on 09/10/16 and had his first treatment of dialysis that day. Patient did not have any further dialysis. Patient trialysis cather came out on 09/11/16. Patient continued to improve, but did not respond well to transition of IV antibiotics to oral antibiotics. Patient's IV antibiotic regimen was changed from vancomycin and Zosyn to Zyvox, Zosyn, and clindamycin beginning on 09/07/2016. Patient completed a total of 17 days of IV antibiotics. Patient's wound was significantly improving. [facility]. Patient also underwent MRI on 09/18/2016 which revealed cellulitis with no deep infection. Patient also underwent arterial Doppler on which revealed a very mild hemodynamically significant lesion and has left lower extremity. Patient's wounds were treated topically with Silvadene. His edema was treated with compression. Patient did undergo echocardiogram on which revealedNormal ejection fraction and grade 2 diastolic dysfunction. Patient's antibiotics were stopped and he was monitored clinically for 48 hours with no return of fever and no worsening of his wound. Patient did complain of pain in the opposite foot on 10-07 an x-ray was performed which revealed no acute findings. There was however suspected that patient likely had gout due to his ongoing renal dysfunction. Patient's creatinine has been slow to return, but is returning nonetheless. Patient was started on prednisone with an improvement of his gout symptoms. Patient's blood sugars were difficult to control initially, but responded quite well to additional Lantus as well as pre-meal insulin. Patient was placed on Lantus 50 units subcu nightly and 40 units subcu every morning and 10 units of short acting insulin prior to meals. On day of discharge, patient was feeling well and reported no new complaints. He was requesting discharge. Remainder patient 's stay was unremarkable. Physical Exam Vital Signs: Temp Pulse Resp BP Pulse Ox 97.9 F 71 18 129/53 H 96 09/24/16 12:02 09/24/16 12:02 09/24/16 12:02 09/24/16 12:02 09/24/16 12:02 Intake & Output 09/23/16 09/24/16 09/25/16 06:59 06:59 06:59 Intake Total 1015 1033 240 Output Total 1500 Balance -485 1033 240 Weight 112 kg 113.6 kg Exam: GENERAL: A+Ox3, no acute distress HEENT: Normocephalic, no scleral icterus, conjunctiva clear, EOEM intact, PERRLA , moist mucous membranes NECK: trachea midline, no JVD RESPIRATORY: CTAB CARDIAC: Regular rate and rhythm, no murmur/nanette/rub ABDOMEN: Soft, obese, no tenderness, no guarding, normal bowel sounds, negative Ruiz sign EXTREMITIES: no cyanosis, no clubbing, asymmetric 1+Pitting edema in left lower extremity, mild tenderness to palpation in the midfoot of right lower extremity NEUROLOGIC: Alert, oriented to person/place, not time, normal speech, cranial nerves grossly intact, tactile sensation intact in all extremities SKIN: left lower extremity with area of healed prior blistering and hemorrhage; no erythema PSYCHIATRIC: Normal mood, normal affect Results Laboratory Results: 09/23/16 07:57 09/24/16 08:59 09/24/16 08:59 Sodium 141.2 Potassium 5.1 H Chloride 101 Carbon Dioxide 29 Anion Gap 11 BUN 53 H Creatinine 2.49 H Est GFR ( Amer) 32 L Est GFR (Non-Af Amer) 26 L Glucose 244 H Calcium 9.7 09/08/16 05:22 Creatine Kinase 575 H Impressions: Chest X-Ray 09/04/16 15:12 IMPRESSION: NO SIGNIFICANT RADIOGRAPHIC FINDING IN THE CHEST. Lower Extremity CT 09/05/16 00:00 IMPRESSION: DIFFUSE EDEMA/ INFLAMMATION IN THE SUBCUTANEOUS FATTY TISSUES. DIFFUSE SKIN THICKENING. NO SOFT TISSUE ABSCESS. NO SIGNIFICANT BONY FINDINGS. Renal Ultrasound 09/07/16 00:00 IMPRESSION: NORMAL, SOMEWHAT LIMITED RENAL ULTRASOUND. Lower Extremity MRI 09/18/16 00:00 IMPRESSION: Cellulitis. No evidence of osteomyelitis. Foot X-Ray 09/22/16 00:00 IMPRESSION: Calcaneal spurs and degenerative joint changes with no acute abnormality. Qualifiers PATEINT BEING DISCHARGED WITH ANY OF THE FOLLOWING DIAGNOSIS?: Heart Failure HF Pt being discharged on ACEI for LVEF less than 40%?: No Reason(s) for not prescribing ACEI:: Not indicated - Renal failure HF Pt being discharged on ARBS for LVEF less than 40%?: No Reason(s) for not prescribing ARBS:: Not indicated - Renal failure HF Pt with Afib discharged with Warfarin?: No Reason(s) for not prescribing Warfarin:: Not indicated - No A. fib HF Pt discharged on evidence-based Beta Guicho:: Yes Plan Time Spent: Less than 30 Minutes
== END 2016-09-24 12:57 | disposition home health service (06) | DRG 871 ==
LOC: ER 12:57 → UNDOADMIN 15:24 → EH 15:24 → 4N 17:08
PROVIDERS: ADMIT Family Medicine; ATTEND Family Medicine
PROC: 06HM33Z Insertion of Infusion Device into Right Femoral Vein, Percutaneous Approach (ICD-10-PCS; principal; 2016-09-10)
PROC: B54BZZA Ultrasonography of Right Lower Extremity Veins, Guidance (ICD-10-PCS; 2016-09-10)
DX: A41.9 Sepsis, unspecified organism (principal); G93.40 Encephalopathy, unspecified; N17.0 Acute kidney failure with tubular necrosis; L03.116 Cellulitis of left lower limb; Z68.41 Body mass index [BMI] 40.0-44.9, adult; I69.951 Hemiplegia and hemiparesis following unspecified cerebrovascular disease affecting right dominant side; I25.10 Atherosclerotic heart disease of native coronary artery without angina pectoris; E10.628 Type 1 diabetes mellitus with other skin complications; M10.371 Gout due to renal impairment, right ankle and foot; R33.9 Retention of urine, unspecified; E66.01 Morbid (severe) obesity due to excess calories; E10.65 Type 1 diabetes mellitus with hyperglycemia; T50.8X5A Adverse effect of diagnostic agents, initial encounter; Y92.238 Other place in hospital as the place of occurrence of the external cause; J44.9 Chronic obstructive pulmonary disease, unspecified; D69.6 Thrombocytopenia, unspecified; I10 Essential (primary) hypertension; E78.5 Hyperlipidemia, unspecified; G47.30 Sleep apnea, unspecified; Z79.899 Other long term (current) drug therapy; Z79.4 Long term (current) use of insulin; Z79.02 Long term (current) use of antithrombotics/antiplatelets; Z79.84 Long term (current) use of oral hypoglycemic drugs; Z95.5 Presence of coronary angioplasty implant and graft; Z95.1 Presence of aortocoronary bypass graft; Z87.442 Personal history of urinary calculi
CPT/HCPCS: 36415; 36556; 71010; 76770; 76937; 80048; 80053; 80202; 81001; 82550; 82570; 82962; 83036; 83605; 83735; 84100; 84300; 84443; 84550; 85025; 85027; 85610; 85730; 86317; 86704; 87040; 87340; 87522; 89190; 93306; 93926; 93971; 94640; 96365; 96367; 99284; C1752; J0692; J1644; J1650; J1652; J1815; J2020; J2543; J3370; J3490; J7030; J7060; J7512

== ENCOUNTER → 2016-10-12 | Outpatient (CLI) | payer MEDICARE, OTHER ==
[2016-10-12 16:17] LABS: ABSOLUTE EOSINOPHILS # (AUTO) 0.3 10^3/uL (0.0-0.6); ABSOLUTE LYMPHOCYTES (AUTO) 1.1 10^3/uL (0.5-4.7); ABSOLUTE MONOCYTES (AUTO) 0.4 10^3/uL (0.1-1.4); ABSOLUTE NEUT (AUTO) 4.2 10^3/uL (1.7-8.2); BASOPHILS % (AUTO) 0.2 % (0-2); EOSINOPHILS % (AUTO) 4.9 % (0-6); HEMATOCRIT 33.4 % (37.9-51.0); HEMOGLOBIN 11.2 g/dL (13.5-17.0); HGB HCT DIFFERENCE 0.2; LYMPHOCYTES % (AUTO) 18.8 % (13-45); MEAN CORPUSCULAR HEMOGLOBIN 30.5 pg (27.0-33.4); MEAN CORPUSCULAR HGB CONC 33.6 g/dL (32.0-36.0); MEAN CORPUSCULAR VOLUME 91 fl (80-97); MONOCYTES % (AUTO) 7.1 % (3-13); RED BLOOD COUNT 3.67 10^6/uL (4.35-5.55); RED CELL DISTRIBUTION WIDTH 14.2 % (11.5-14.0)
[2016-10-12 16:37] LABS: ALANINE AMINOTRANSFERASE 33 U/L (21-72); ALBUMIN 3.8 g/dL (3.5-5.0); ALKALINE PHOSPHATASE 58 U/L (38-126); ANION GAP 11 (5-19); ASPARTATE AMINO TRANSFERASE 22 U/L (17-59); BILIRUBIN,DIRECT 0.4 mg/dL (0.0-0.4); BILIRUBIN,TOTAL 0.4 mg/dL (0.2-1.3); BLOOD UREA NITROGEN 27 mg/dL (7-20); CALCIUM 9.1 mg/dL (8.4-10.2); CARBON DIOXIDE 25 mmol/L (22-30); CHLORIDE 104 mmol/L (98-107); CREATININE RESULT 1.58 mg/dL (0.52-1.25); GLUCOSE 224 mg/dL (75-110); POTASSIUM 5.2 mmol/L (3.6-5.0); SODIUM 139.8 mmol/L (137-145)
== END ==
LOC: WC 14:53
PROVIDERS: ATTEND Nurse Practitioner Family
DX: L97.221 Non-pressure chronic ulcer of left calf limited to breakdown of skin (principal)
CPT/HCPCS: 36415; 80053; 85025

== ENCOUNTER 2017-05-23 09:20 | Day surgery (SDC) | payer MEDICARE, OTHER ==
[~2017-05-23 09:20] MED LIST changes: -KETOROLAC TROMETHAMINE 0.45% 4 DROP/0.4 ML DROPERETTE OD PRN; +PROPOFOL INJ 200 MG/20 ML VIAL IV ONE
[2017-05-23 11:12] VITALS: BP 115/66
--- NOTE | 2017-05-23 12:31 | Operative Report ---
Operative Report DATE OF SURGERY: 05/23/17 Operative Report: The risks, benefits and alternatives of the procedure including risks of bleeding, perforation requiring surgery are explained to the patient in detail and informed consent is obtained. The patient is taken back to the endoscopy suite and placed in the left, lateral decubital position. Timeout was called. Propofol medications administered. A rectal examination is done which did not reveal any masses, tears or fissures. An Olympus videoscope was inserted into the patient's rectum. The scope was then carefully advanced all the way to the cecum. The cecum is identified by the usual anatomical landmarks including the ileocecal valve as well as the appendiceal office. Photodocumentation was obtained. The scope was then sequentially pulled back via the various segments of the colon including the ascending colon, hepatic flexure, transverse colon, splenic flexure, descending colon and finally in to the rectosigmoid portions of the colon. Retroflexion maneuver is performed. PREOPERATIVE DIAGNOSIS: Rectal bleeding. Family history of colorectal cancer POSTOPERATIVE DIAGNOSIS: Internal hemorrhoids. Diverticulosis. 2 polyps which are removed via snare polypectomy. The located in the descending colon and in the rectosigmoid portions of the colon respectively. Both are removed via snare polypectomy and retrieved. OPERATION: Colonoscopy with snare polypectomy SURGEON: CESAR MEDINA ANESTHESIA: LMAC TISSUE REMOVED OR ALTERED: As noted above. COMPLICATIONS: None. ESTIMATED BLOOD LOSS: None. INTRAOPERATIVE FINDINGS: As noted above. PROCEDURE: Patient tolerated procedure well. No immediate postprocedure complications are noted. Patient discharged in good condition. Discharge date May 23, 2017. Discharge diet: Regular. Discharge activity: Regular. 2-3 week follow-up to discuss findings. Patient is instructed call the office or proceed to the emergency room should there be any further problems or questions. 3 year surveillance colonoscopy. We will wait on pathology.
== END 2017-05-23 11:06 | disposition home or self-care (01) ==
LOC: END 09:20
PROVIDERS: ATTEND Internal Medicine Gastroenterology
PROC: 0DBP8ZX Excision of Rectum, Via Natural or Artificial Opening Endoscopic, Diagnostic (ICD-10-PCS; 2017-05-23)
PROC: 0DBJ8ZX Excision of Appendix, Via Natural or Artificial Opening Endoscopic, Diagnostic (ICD-10-PCS; 2017-05-23)
PROC: 0DBN8ZX Excision of Sigmoid Colon, Via Natural or Artificial Opening Endoscopic, Diagnostic (ICD-10-PCS; principal; 2017-05-23 12:30)
DX: K63.5 Polyp of colon (principal); K57.30 Diverticulosis of large intestine without perforation or abscess without bleeding; K64.8 Other hemorrhoids; K62.5 Hemorrhage of anus and rectum; Z80.0 Family history of malignant neoplasm of digestive organs; Z86.010 Personal history of colon polyps; I10 Essential (primary) hypertension; E11.9 Type 2 diabetes mellitus without complications; M19.90 Unspecified osteoarthritis, unspecified site; Z86.73 Personal history of transient ischemic attack (TIA), and cerebral infarction without residual deficits; Z79.02 Long term (current) use of antithrombotics/antiplatelets; Z79.82 Long term (current) use of aspirin; Z79.899 Other long term (current) drug therapy; Z79.84 Long term (current) use of oral hypoglycemic drugs; Z79.4 Long term (current) use of insulin
CPT/HCPCS: 45385; 82962; 88305 ×2; J2704; 811

== ENCOUNTER 2017-09-10 01:36 | Emergency (ER) | payer MEDICARE, OTHER ==
--- NOTE | 2017-09-10 02:36 | ER Document Report ---
ED Extremity Problem, Lower - General Information source: Patient TRAVEL OUTSIDE OF THE [place] IN LAST 30 DAYS: No <MANDY FLORES - Last Filed: 09/10/17 02:45> <MAZIN RYAN - Last Filed: 09/10/17 05:23> - General Chief Complaint: Leg Pain Stated Complaint: RIGHT LEG PAIN Time Seen by Provider: 09/10/17 02:24 Notes: 66 year old male that presents today with complaints of right lower extremity pain "from the knee down". 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 Patient has bilateral lower extremity swelling and takes 60mg of Lasix daily. Patient states he mowed the lawn yesterday but states he does that weekly. Patient denies any trauma or accident. (MANDY FLORES) - Related Data Allergies/Adverse Reactions: No Known Allergies Allergy (Verified 09/10/17 01:43) Past Medical History - General Information source: Patient, Relative, [facility] Records - Social History Smoking Status: Never Smoker Cigarette use (# per day): No Frequency of alcohol use: None Drug Abuse: None Lives with: Family Family History: Reviewed & Not Pertinent, CAD, DM - Past Medical History Cardiac Medical History: Reports: Hx Coronary Artery Disease, Hx Hypercholesterolemia, Hx Hypertension Pulmonary Medical History: Reports: Hx Asthma - IN PAST, Hx Sleep Apnea - cpap did not help Neurological Medical History: Reports: Hx Cerebrovascular Accident - 2011 - R SIDE WEAKNESS Endocrine Medical History: Reports: Hx Diabetes Mellitus Type 2 GI Medical History: Reports: Hx Gastroesophageal Reflux Disease - rarely Musculoskeletal Medical History: Reports Hx Arthritis - GENERALIZED Traumatic Medical History: Reports: Hx Fractures - right gallegos Past Surgical History: Reports: Hx Appendectomy, Hx Cardiac Catheterization - Stent placed, Hx Cholecystectomy, Hx Coronary Artery Bypass Graft - 5 vessels, Hx Open Heart Surgery - STENT bypass - Immunizations Hx Diphtheria, Pertussis, Tetanus Vaccination: No Hx Pneumococcal Vaccination: 12/22/16 <MANDY FLORES - Last Filed: 09/10/17 02:45> Review of Systems - Review of Systems Constitutional: No symptoms reported EENT: No symptoms reported Cardiovascular: No symptoms reported Respiratory: No symptoms reported Gastrointestinal: No symptoms reported Genitourinary: No symptoms reported Male Genitourinary: No symptoms reported Musculoskeletal: See HPI, Leg swelling - right, Other - right leg pain Skin: No symptoms reported Hematologic/Lymphatic: No symptoms reported Neurological/Psychological: No symptoms reported -: Yes All other systems reviewed and negative <MANDY FLORES - Last Filed: 09/10/17 02:45> Physical Exam <MANDY FLORES - Last Filed: 09/10/17 02:45> <MAZIN RYAN - Last Filed: 09/10/17 05:23> - Vital signs Vitals: Temp Pulse Resp BP Pulse Ox 98.5 F 76 18 130/65 H 94 09/10/17 01:41 09/10/17 01:41 09/10/17 01:41 09/10/17 01:41 09/10/17 01:41 - Notes Notes: Physical Exam: General: Alert, obese. HEENT: Normocephalic. Atraumatic. PERRL. Extraocular movements intact. Oropharynx clear. Neck: Supple. Non-tender. Respiratory: No respiratory distress. Clear and equal breath sounds bilaterally. Cardiovascular: Regular rate and rhythm. Abdominal: Obese. Non-tender. No distension. Normal Bowel Sounds. Back: Non-tender. No deformity or step off. Extremities: Moves all four extremities. Upper extremities: Normal inspection. Normal ROM. Lower extremities: Bilateral 2+ pitting edema to legs, ankles, and feet. The only tenderness in the RLE is over the patella. Normal ROM. Neurological: Normal cognition. AAOx4. Normal speech. Right hand tremor. Psychological: Normal affect. Normal Mood. Skin: Warm. Dry. Normal color. (MANDY FLORES) Course - Laboratory Result Diagrams: 09/10/17 02:51 09/10/17 02:51 <MAZIN RYAN - Last Filed: 09/10/17 05:23> - Vital Signs Vital signs: Temp Pulse Resp BP Pulse Ox 98.5 F 76 18 130/65 H 94 09/10/17 01:41 09/10/17 01:41 09/10/17 01:41 09/10/17 01:41 09/10/17 01:41 - Laboratory Laboratory results interpreted by me: 09/10/17 09/10/17 09/10/17 02:51 02:51 02:51 Hgb 13.3 L BUN 38 H Creatinine 1.32 H Est GFR (Non-Af Amer) 54 L Glucose 234 H Hemoglobin A1c % 8.7 H Uric Acid 11.2 H Discharge <MANDY FLORES - Last Filed: 09/10/17 02:45> <MAZIN RYAN - Last Filed: 09/10/17 05:23> - Discharge Clinical Impression: Leg pain Qualifiers: Laterality: right Qualified Code(s): M79.604 - Pain in right leg Condition: Stable Disposition: HOME, SELF-CARE Additional Instructions: There was no obvious explanation found for the pain you are feeling in your leg when you try to bear weight on the leg. For now, you should stay off of the leg and limit weightbearing as much as possible. Elevate your feet as much as possible to help with the edema in your lower extremities. Follow-up with your doctor this week for recheck, and take copies of the lab work with you. RETURN TO THE EMERGENCY ROOM IF ANY NEW OR WORSENING SYMPTOMS. Referrals: THOMAS PELAEZ MD [Primary Care Provider] - Follow up in 3-5 days Scribe Attestation: 09/10/17 02:50 I personally performed the services described in the documentation, reviewed and edited the documentation which was dictated to the scribe in my presence, and it accurately records my words and actions. (MAZIN RYAN) Scribe Documentation - Scribe Written by Arabella:: Arabella Archuleta, 09/10/2017 [id number] acting as scribe for :: Audrey <MANDY FLORES - Last Filed: 09/10/17 02:45>
[2017-09-10 03:24] LABS: ALANINE AMINOTRANSFERASE 22 U/L (21-72); ALKALINE PHOSPHATASE 52 U/L (38-126); ANION GAP 14 (5-19); ASPARTATE AMINO TRANSFERASE 20 U/L (17-59); BILIRUBIN,DIRECT 0.3 mg/dL (0.0-0.4); BILIRUBIN,TOTAL 0.5 mg/dL (0.2-1.3); BLOOD UREA NITROGEN 38 mg/dL (7-20); CARBON DIOXIDE 23 mmol/L (22-30); CHLORIDE 104 mmol/L (98-107); CREATINE KINASE 70 U/L (55-170); GLUCOSE 234 mg/dL (75-110); POTASSIUM 4.7 mmol/L (3.6-5.0); SODIUM 141.3 mmol/L (137-145); TOTAL PROTEIN 7.2 g/dL (6.3-8.2); URIC ACID 11.2 mg/dL (3.5-8.5)
[2017-09-10 03:32] LABS: ABSOLUTE EOSINOPHILS # (AUTO) 0.2 10^3/uL (0.0-0.6); ABSOLUTE MONOCYTES (AUTO) 0.6 10^3/uL (0.1-1.4); ABSOLUTE NEUT (AUTO) 6.1 10^3/uL (1.7-8.2); BASOPHILS % (AUTO) 0.1 % (0-2); EOSINOPHILS % (AUTO) 2.6 % (0-6); HEMATOCRIT 38.1 % (37.9-51.0); HEMOGLOBIN 13.3 g/dL (13.5-17.0); LYMPHOCYTES % (AUTO) 22.4 % (13-45); MEAN CORPUSCULAR HEMOGLOBIN 30.5 pg (27.0-33.4); MEAN CORPUSCULAR HGB CONC 34.9 g/dL (32.0-36.0); MEAN CORPUSCULAR VOLUME 88 fl (80-97); MONOCYTES % (AUTO) 6.9 % (3-13); PLATELET COUNT 191 10^3/uL (150-450); RED BLOOD COUNT 4.36 10^6/uL (4.35-5.55); RED CELL DISTRIBUTION WIDTH 13.6 % (11.5-14.0); TOTAL CELLS COUNTED % (AUTO) 100 %
--- NOTE | 2017-09-10 04:10 | RADIOLOGY REPORT (SQ) ---
EXAM DESCRIPTION: XR TIBIA FIBULA 2 VIEWS COMPLETED DATE/TME: 09/10/2017 02:39 CLINICAL HISTORY: 66 years, Male, Right leg pain with weightbearing COMPARISON: None. NUMBER OF VIEWS: Two TECHNIQUE: Two views of the right tibia and fibula LIMITATIONS: None. FINDINGS: There is no acute fracture or dislocation. Deformity of the proximal fibula may be due to an old healed fracture. Edema is seen throughout the right lower extremity. Vascular calcifications are noted IMPRESSION: No acute fracture or dislocation 2010 [employer]- All Rights Reserved
[2017-09-10 05:42] VITALS: BP 165/65
== END 2017-09-10 05:41 | disposition home or self-care (01) ==
LOC: ER 01:36
DX: M79.604 Pain in right leg (principal); I69.951 Hemiplegia and hemiparesis following unspecified cerebrovascular disease affecting right dominant side; I25.10 Atherosclerotic heart disease of native coronary artery without angina pectoris; E78.00 Pure hypercholesterolemia, unspecified; I10 Essential (primary) hypertension; E11.9 Type 2 diabetes mellitus without complications; Z90.49 Acquired absence of other specified parts of digestive tract; Z95.1 Presence of aortocoronary bypass graft
CPT/HCPCS: 36415; 80053; 82550; 83036; 84550; 85025; 99284

== ENCOUNTER 2017-10-05 01:03 | Inpatient (IN) | payer MEDICARE, OTHER ==
[2017-10-05] MEDS ORDERED: ACETAMINOPHEN 325 MG TABLET PO ONE (03:39)
--- NOTE | 2017-10-05 03:44 | ER Document Report ---
ED General - General Chief Complaint: Leg Swelling Stated Complaint: LEG PAIN Time Seen by Provider: 10/05/17 03:30 Notes: Patient is a 66-year-old male who presents with complaint of severe leg pain and fevers. He was admitted to the hospital August of last year for sepsis and cellulitis. He says this feels exactly the same. He says he has been intermittently on antibiotics because of recurring cellulitis and severe edema in his legs. Several last week to 2 weeks edema in his legs become much more worse and then his left leg is extremely painful to the point where he cannot walk. He started having fevers today and therefore came to the ER. No chest pain or shortness of breath. No runny nose cough or congestion. TRAVEL OUTSIDE OF THE [place] IN LAST 30 DAYS: No - Related Data Allergies/Adverse Reactions: No Known Allergies Allergy (Verified 09/10/17 01:43) Past Medical History - Social History Smoking Status: Never Smoker Frequency of alcohol use: None Drug Abuse: None Family History: CAD, DM - Past Medical History Cardiac Medical History: Reports: Hx Coronary Artery Disease, Hx Heart Attack, Hx Hypercholesterolemia, Hx Hypertension Pulmonary Medical History: Reports: Hx Asthma - IN PAST, Hx Sleep Apnea - cpap did not help Denies: Hx Bronchitis, Hx COPD, Hx Pneumonia, Hx Tuberculosis Neurological Medical History: Reports: Hx Cerebrovascular Accident - R SIDE WEAKNESS. Denies: Hx Seizures Endocrine Medical History: Reports: Hx Diabetes Mellitus Type 2 Renal/ Medical History: Denies: Hx Peritoneal Dialysis GI Medical History: Reports: Hx Gastroesophageal Reflux Disease - rarely. Denies: Hx Hepatitis, Hx Hiatal Hernia, Hx Ulcer Musculoskeletal Medical History: Reports Hx Arthritis - GENERALIZED Psychiatric Medical History: Denies: Hx Depression Traumatic Medical History: Reports: Hx Fractures - right gallegos Infectious Medical History: Denies: Hx Hepatitis Past Surgical History: Reports: Hx Appendectomy, Hx Cardiac Catheterization - Stent placed, Hx Cholecystectomy, Hx Coronary Artery Bypass Graft - 5 vessels, Hx Open Heart Surgery - STENT bypass. Denies: Hx Pacemaker - Immunizations Hx Diphtheria, Pertussis, Tetanus Vaccination: No Hx Pneumococcal Vaccination: 12/22/16 Review of Systems - Review of Systems Notes: My Normal Review Basic REVIEW OF SYSTEMS: CONSTITUTIONAL : fever EENT: Denies eye, ear, throat, or mouth pain or symptoms. Denies nasal or sinus congestion. CARDIOVASCULAR: Denies chest pain. RESPIRATORY: Denies cough, cold, or chest congestion. Denies shortness of breath, difficulty breathing, or wheezing. GASTROINTESTINAL: Denies abdominal pain. Denies nausea, vomiting, or diarrhea. MUSCULOSKELETAL: Leg pain and edema. SKIN: redness in lower extremities. NEUROLOGICAL: Denies altered mental status or loss of consciousness. Denies headache. Denies weakness or paralysis or loss of use of either side. Denies problems with gait or speech. Denies sensory or motor loss. ALL OTHER SYSTEMS REVIEWED AND NEGATIVE. Physical Exam - Vital signs Vitals: Temp Pulse Resp BP Pulse Ox 100.1 F 87 16 150/56 H 98 10/05/17 01:08 10/05/17 01:08 10/05/17 01:08 10/05/17 01:08 10/05/17 01:08 - Notes Notes: General Appearance: Well nourished, alert, cooperative, no acute distress, severe obvious discomfort. Vitals: reviewed, See vital signs table. Head: no swelling or tenderness to the head Eyes: PERRL, EOMI, Conjuctiva clear Mouth: No decreasd moisture Lungs: No wheezing, No rales, No rhonci, No accessory muscle use, good air exchange bilaterally. Heart: Normal rate, Regular rythm, No murmur, no rub Abdomen: Normal BS, soft, No rigidity, No abdominal tenderness, No guarding, no rebound, Extremities: strength 5/5 in all extremities, good pulses in all extremities, patient has severe edema in both extremities little bit worse on the left. He does have some patches of redness to both lower extremities but this appears chronic. No obvious abscess on exam. Skin: warm, dry, appropriate color, no rash Neuro: speech clear, oriented x 3, normal affect, responds appropriately to questions. Course - Re-evaluation Re-evalutation: 10/05/17 05:37 Patient is limited findings are not very impressive however his exam is. His legs are very very swollen and edematous. It is to the point where he cannot walk or bear weight. I will cover him for cellulitis being that he has had a similar presentation became very septic shortly after his presentation last time this occurred and also because he has already started having fevers at home. I did speak with the hospitalist, Dr. Hernandez, agrees with the patient. Dictation of this chart was performed using voice recognition software; therefore, there may be some unintended grammatical errors. - Vital Signs Vital signs: Temp Pulse Resp BP Pulse Ox 99.1 F 89 16 146/88 H 98 10/05/17 03:44 10/05/17 02:43 10/05/17 02:43 10/05/17 02:43 10/05/17 02:43 - Laboratory Result Diagrams: 10/05/17 04:15 10/05/17 04:15 Laboratory results interpreted by me: 10/05/17 10/05/17 04:15 04:15 WBC 11.3 H RBC 3.95 L Hgb 11.9 L Hct 34.9 L Absolute Neutrophils 8.7 H Potassium 5.1 H BUN 31 H Est GFR (Non-Af Amer) 58 L Glucose 212 H ALT 15 L Discharge - Discharge Clinical Impression: Lower extremity edema Cellulitis Qualifiers: Site of cellulitis: extremity Site of cellulitis of extremity: lower extremity Laterality: unspecified laterality Qualified Code(s): L03.119 - Cellulitis of unspecified part of limb Condition: Stable Disposition: ADMITTED OBSERVATION Admitting Provider: Hospitalist Unit Admitted: Medical Floor
--- NOTE | 2017-10-05 04:08 | RADIOLOGY REPORT (SQ) ---
Chest single view on 10/05/2017 at 3:51 AM CLINICAL INDICATION: Fever COMPARISON: 09/04/2016 FINDINGS: The patient is status post median sternotomy. Heart is upper limits normal for size. Mild vascular calcification is noted in the aorta. The lungs are clear. Pulmonary vascularity is within normal limits. IMPRESSION: No acute disease.
[2017-10-05 05:04] LABS: ABSOLUTE EOSINOPHILS # (AUTO) 0.1 10^3/uL (0.0-0.6); ABSOLUTE LYMPHOCYTES (AUTO) 1.5 10^3/uL (0.5-4.7); ABSOLUTE NEUT (AUTO) 8.7 10^3/uL (1.7-8.2); BASOPHILS % (AUTO) 0.1 % (0-2); EOSINOPHILS % (AUTO) 0.8 % (0-6); HEMATOCRIT 34.9 % (37.9-51.0); HEMOGLOBIN 11.9 g/dL (13.5-17.0); LYMPHOCYTES % (AUTO) 13.3 % (13-45); MEAN CORPUSCULAR HEMOGLOBIN 30.2 pg (27.0-33.4); MEAN CORPUSCULAR HGB CONC 34.2 g/dL (32.0-36.0); MEAN CORPUSCULAR VOLUME 88 fl (80-97); MONOCYTES % (AUTO) 8.7 % (3-13); PLATELET COUNT 200 10^3/uL (150-450); RED BLOOD COUNT 3.95 10^6/uL (4.35-5.55); RED CELL DISTRIBUTION WIDTH 13.9 % (11.5-14.0); SEGMENTED NEUTROPHILS % (AUTO) 77.1 % (42-78); TOTAL CELLS COUNTED % (AUTO) 100 %; WHITE BLOOD COUNT 11.3 10^3/uL (4.0-10.5)
[2017-10-05 05:09] LABS: INTERNATIONAL RATION (INR) 0.95; PROTHROMBIN TIME 13.2 SEC (11.4-15.4)
[2017-10-05 05:25] LABS: ALANINE AMINOTRANSFERASE 15 U/L (21-72); ALBUMIN 3.9 g/dL (3.5-5.0); ALKALINE PHOSPHATASE 45 U/L (38-126); ANION GAP 12 (5-19); ASPARTATE AMINO TRANSFERASE 47 U/L (17-59); BILIRUBIN,DIRECT 0.3 mg/dL (0.0-0.4); BILIRUBIN,TOTAL 0.5 mg/dL (0.2-1.3); BLOOD UREA NITROGEN 31 mg/dL (7-20); CALCIUM 8.9 mg/dL (8.4-10.2); CARBON DIOXIDE 27 mmol/L (22-30); CHLORIDE 105 mmol/L (98-107); GLUCOSE 212 mg/dL (75-110); POTASSIUM 5.1 mmol/L (3.6-5.0); SODIUM 143.9 mmol/L (137-145); TOTAL PROTEIN 7.4 g/dL (6.3-8.2)
[2017-10-05] MEDS ORDERED: PIPERACILLIN/TAZOBACTAM 3.375 GM VIAL IV ONE (05:32)
[2017-10-05] MEDS ORDERED: HYDRALAZINE HCL INJ/PF 20 MG/1 ML SDV IV PRN (05:37)
[2017-10-05] MEDS ORDERED: IPRATROPIUM/ALBUTEROL 0.5-2.5 MG/3 ML AMPUL NEB PRN (05:38)
[2017-10-05] MEDS ORDERED: MAG HYDROX/AL HYDROX/SIMETH SUSP 30 ML UDCUP PO PRN (05:38)
[2017-10-05] MEDS ORDERED: GLUCAGON,HUMAN RECOMB 1 MG INJ IM PRN (05:38)
[2017-10-05] MEDS ORDERED: DEXTROSE 40% GEL 15 GM TUBE PO PRN ×2 (05:38)
[2017-10-05] MEDS ORDERED: DEXTROSE 50%-WATER 25 GM/50 ML DISP.SYRIN IV PRN ×2 (05:38)
[2017-10-05] MEDS ORDERED: LACTULOSE SYRUP 20 GM/30 ML UDCUP PO ONE (05:50)
[2017-10-05] MEDS ORDERED: PIPERACILLIN/TAZOBACTAM 3.375 GM VIAL IV PRN (05:52)
[2017-10-05] MEDS: PIPERACILLIN SODIUM/TAZOBACTAM 3.375 GM in NORMAL SALINE 100 ML IV SCH ×2 (06:11→12:05)
[2017-10-05] MEDS ORDERED: VANCOMYCIN HCL 1,500 MG in DEXTROSE 5%-WATER 250 ML IV ONE (06:30)
[2017-10-05] MEDS ORDERED: VANCOMYCIN HCL 0 MG in DEXTROSE 5%-WATER 250 ML IV NR (06:30)
--- NOTE | 2017-10-05 06:30 | PDOC H&P ---
History of Present Illness Admission Date/PCP: THOMAS PELAEZ MD Patient complains of: Lower extremity pain and swelling History of Present Illness: RUSSELL PARRA is a 66 year old male with a past medical history of morbid obesity, coronary artery disease status post coronary artery bypass graft 5 in 2010, diabetes, chronic venous stasis, Morbid obesity and sleep apnea with noncompliance. Patient presents with 2 weeks of exceptional lower extremity edema not improved by compression stockings. Patient is unable to apply his compression stockings of the last 48 hours and has developed circumferential erythema on the left associated with fever of 101.0 prompting evaluation emergency room where he is found to have leukocytosis and pain. He started on vancomycin and Zosyn and referred to the hospitalist for admission. Patient admits previous episode of cellulitis related to her ago requiring a 3 week hospitalization. Patient denies new medications, shortness of breath, orthopnea , chest pain. Admits severely reduced mobility ambulating only a few feet per day secondary to debility. Past Medical History Cardiac Medical History: Reports: Coronary Artery Disease, Myocardial Infarction , Hyperlipidema, Hypertension Pulmonary Medical History: Reports: Asthma - IN PAST, Sleep Apnea - cpap did not help Denies: Bronchitis, Chronic Obstructive Pulmonary Disease (COPD), Pneumonia, Tuberculosis Neurological Medical History: Denies: Seizures Endocrine Medical History: Reports: Diabetes Mellitus Type 2, Obesity GI Medical History: Reports: Gastroesophageal Reflux Disease - rarely Denies: Hepatitis, Hiatal Hernia Musculoskeltal Medical History: Reports: Arthritis - GENERALIZED Psychiatric Medical History: Denies: Depression Hematology: Denies: Anemia, Sickle Cell Disease Past Surgical History Past Surgical History: Reports: Appendectomy, Cardiac Catheterization - Stent placed, Cholecystectomy, Coronary Artery Bypass Graft - 5 vessels Denies: Pacemaker Social History Information Source: Patient Lives with: Spouse/Significant other Smoking Status: Never Smoker Frequency of Alcohol Use: None Hx Recreational Drug Use: No Drugs: None Hx Prescription Drug Abuse: No - Advance Directive Resuscitation Status: Full Code Family History Family History: CAD, DM Parental Family History Reviewed: Yes Children Family History Reviewed: Yes Sibling(s) Family History Reviewed.: Yes Medication/Allergy Home Medications: Clopidogrel Bisulfate [Plavix 75 mg Tablet] 75 mg PO DAILY 09/04/16 Simvastatin 40 mg PO QHS 09/04/16 Insulin Aspart [Novolog Insulin 100 Unit/1 ml 10 ml] 10 unit SUBCUT AC #10 ml Insulin Glargine,Hum.rec.anlog [Lantus Insulin 100 Unit/1 ml 10 ml] 40 unit SUBCUT QAM unit 09/24/16 Aspirin [Aspirin 81 mg Chewable Tablet] 81 mg PO DAILY 05/18/17 Cholecalciferol (Vitamin D3) [Vitamin D3 1000 Unit Tablet] 1,000 unit PO DAILY 05/18/17 Docusate Sodium [Colace 100 mg Capsule] 100 mg PO DAILY 05/18/17 Furosemide [Lasix 40 mg Tablet] 40 mg PO QAM 05/18/17 Lisinopril/Hydrochlorothiazide [Lisinopril-Hctz 20-12.5 mg Tab] 1 each PO DAILY 05/18/17 Metoprolol Succinate 100 mg PO DAILY 05/18/17 Potassium Chloride [Klor-Con] 20 meq PO DAILY 05/18/17 Insulin Glargine,Hum.rec.anlog [Lantus Insulin 100 Unit/1 ml 10 ml] 40 unit SUBCUT QHS 05/23/17 Allergies/Adverse Reactions: No Known Allergies Allergy (Verified 09/10/17 01:43) Review of Systems Constitutional: PRESENT: as per HPI, chills, fatigue, fever(s), weakness, weight gain. ABSENT: headache(s), weight loss Eyes: ABSENT: visual disturbances Ears: ABSENT: hearing changes Cardiovascular: ABSENT: chest pain, dyspnea on exertion, edema, orthropnea, palpitations Respiratory: ABSENT: cough, hemoptysis Gastrointestinal: ABSENT: abdominal pain, constipation, diarrhea, hematemesis, hematochezia, nausea, vomiting Genitourinary: ABSENT: dysuria, hematuria Musculoskeletal: PRESENT: as per HPI, muscle weakness. ABSENT: joint swelling Integumentary: ABSENT: rash, wounds Neurological: ABSENT: abnormal gait, abnormal speech, confusion, dizziness, focal weakness, syncope Psychiatric: ABSENT: anxiety, depression, homidical ideation, suicidal ideation Endocrine: ABSENT: cold intolerance, heat intolerance, polydipsia, polyuria Hematologic/Lymphatic: ABSENT: easy bleeding, easy bruising Physical Exam Vital Signs: Temp Pulse Resp BP Pulse Ox 99.1 F 89 16 146/88 H 98 10/05/17 03:44 10/05/17 02:43 10/05/17 02:43 10/05/17 02:43 10/05/17 02:43 Intake & Output 10/03/17 10/04/17 10/05/17 11:59 11:59 11:59 Weight 124.3 kg General appearance: PRESENT: cooperative, mild distress, morbidly obese. ABSENT : disheveled, hard of hearing Head exam: PRESENT: atraumatic, normocephalic Eye exam: PRESENT: conjunctiva pink, EOMI, PERRLA. ABSENT: scleral icterus Ear exam: PRESENT: normal external ear exam Mouth exam: PRESENT: moist, tongue midline Neck exam: ABSENT: carotid bruit, JVD, lymphadenopathy, thyromegaly Respiratory exam: PRESENT: clear to auscultation michaela. ABSENT: rales, rhonchi, wheezes Cardiovascular exam: PRESENT: RRR. ABSENT: diastolic murmur, rubs, systolic murmur Pulses: PRESENT: normal dorsalis pedis pul Vascular exam: PRESENT: normal capillary refill GI/Abdominal exam: PRESENT: distended, normal bowel sounds, soft. ABSENT: guarding, mass, organolmegaly, rebound, tenderness Rectal exam: PRESENT: deferred Extremities exam: PRESENT: full ROM, pedal edema, tenderness, +2 edema. ABSENT : calf tenderness, clubbing Neurological exam: PRESENT: alert, awake, oriented to person, oriented to place , oriented to time, oriented to situation, CN II-XII grossly intact. ABSENT: motor sensory deficit Psychiatric exam: PRESENT: appropriate affect, normal mood. ABSENT: homicidal ideation, suicidal ideation Skin exam: PRESENT: dry, erythema, intact, warm. ABSENT: cyanosis, rash, skin tears Results Laboratory Results: 10/05/17 04:15 10/05/17 04:15 10/05/17 10/05/17 04:15 04:15 WBC 11.3 H RBC 3.95 L Hgb 11.9 L Hct 34.9 L MCV 88 MCH 30.2 MCHC 34.2 RDW 13.9 Plt Count 200 Seg Neutrophils % 77.1 Lymphocytes % 13.3 Monocytes % 8.7 Eosinophils % 0.8 Basophils % 0.1 Absolute Neutrophils 8.7 H Absolute Lymphocytes 1.5 Absolute Monocytes 1.0 Absolute Eosinophils 0.1 Absolute Basophils 0.0 Sodium 143.9 Potassium 5.1 H Chloride 105 Carbon Dioxide 27 Anion Gap 12 BUN 31 H Creatinine 1.24 Est GFR ( Amer) > 60 Est GFR (Non-Af Amer) 58 L Glucose 212 H Calcium 8.9 Total Bilirubin 0.5 AST 47 ALT 15 L Alkaline Phosphatase 45 Total Protein 7.4 Albumin 3.9 Impressions: Chest X-Ray 10/05/17 03:39 IMPRESSION: No acute disease. Assessment & Plan - Diagnosis (1) Cellulitis Qualifiers: Site of cellulitis: extremity Site of cellulitis of extremity: lower extremity Laterality: unspecified laterality Qualified Code(s): L03.119 - Cellulitis of unspecified part of limb Is this a current diagnosis for this admission?: Yes Plan: Med floor admission, complicated by diabetes and chronic venous stasis, lower extremity elevation, empiric antibiotics, follow-up CBC and culture (2) Lower extremity edema Is this a current diagnosis for this admission?: Yes Plan: Complicated by cellulitis, debility, follow-up BMP and TSH. (3) Coronary artery disease Is this a current diagnosis for this admission?: Yes Plan: Appears compensated, follow-up BNp (4) Morbid obesity with BMI of 40.0-44.9, adult Is this a current diagnosis for this admission?: Yes Plan: Complicated by severe physical debility, evaluate for metabolic cause with evaluation of thyroid function and dietitian consultation (5) Uncontrolled diabetes mellitus Qualifiers: Diabetes mellitus type: type 1 Is this a current diagnosis for this admission?: Yes Plan: Home regiment with sliding scale Humalog, follow-up A1c - Time Time Spent: 50 to 70 Minutes - Inpatient Certification Medical Necessity: Need Close Monitoring Due to Risk of Patient Decompensation
[2017-10-05] MEDS ORDERED: VANCOMYCIN HCL INJ 1000 MG VIAL IV PRN (06:31)
[2017-10-05 06:46] LABS: APPEARANCE,URINE CLEAR; BILIRUBIN,URINE NEGATIVE (NEGATIVE); COLOR,URINE YELLOW; GLUCOSE, URINE 50 mg/dL (NEGATIVE); KETONES,URINE NEGATIVE (NEGATIVE); LEUKOCYTE ESTERASE,URINE NEGATIVE (NEGATIVE); NITRITE,URINE NEGATIVE (NEGATIVE); PROTEIN,URINE NEGATIVE (NEGATIVE); URINE SPECIFIC GRAVITY 1.016; UROBILINOGEN,URINE NEGATIVE mg/dL (<2.0)
[2017-10-05 07:01] LABS: URINE AMPHETAMINES SCREEN NEGATIVE; URINE BARBITURATES SCREEN NEGATIVE; URINE BENZODIAZEPINES SCREEN NEGATIVE; URINE COCAINE SCREEN NEGATIVE; URINE MARIJUANA (THC) SCREEN NEGATIVE; URINE METHADONE SCREEN NEGATIVE; URINE PHENCYCLIDINE SCREEN NEGATIVE
[2017-10-05] MEDS: HEPARIN SOD (PORCINE) 5,000 UNIT/ML 1 ML SYRINGE SUBCUT SCH ×3 (07:05→21:47)
[2017-10-05] MEDS ORDERED: INSULIN GLARGINE,HUM.REC.ANLOG 1,000 UNIT/10 ML UNIT SUBCUT SCH ×3 (08:00→22:00)
[2017-10-05] MEDS ORDERED: FUROSEMIDE 40 MG TABLET PO SCH (08:00)
[2017-10-05] MEDS: INSULIN LISPRO 100 UNIT/ML 3 ML VIAL SUBCUT PRN ×2 (10:00→17:56)
[2017-10-05] MEDS: CLOPIDOGREL BISULFATE 75 MG TABLET PO SCH (10:00)
[2017-10-05] MEDS ORDERED: ASPIRIN 81 MG TABLET, CHEWABLE PO SCH (10:00)
[2017-10-05] MEDS ORDERED: (PENDING PHARMACY ID) (Lisinopril/Hydrochlorothiazide [Lisinopril-Hctz 20-12.5 Mg Tab] 1 E PO SCH (10:00)
[2017-10-05] MEDS: DOCUSATE SODIUM 100 MG CAPSULE PO SCH ×2 (10:00→16:59)
[2017-10-05] MEDS: HYDROCHLOROTHIAZIDE 12.5 MG TABLET PO SCH (10:11)
[2017-10-05] MEDS: LISINOPRIL 10 MG TABLET PO SCH (10:12)
[2017-10-05] MEDS: METOPROLOL SUCCINATE 50 MG TAB.SR.24H PO SCH (10:12)
[2017-10-05] MEDS: VANCOMYCIN HCL 750 MG in DEXTROSE 5%-WATER 250 ML IV SCH (16:59)
--- NOTE | 2017-10-05 21:33 | PDOC PROGRESS REPORT ---
Subjective Progress Note for:: 10/05/17 Subjective:: 66-year-old male with a past medical history significant for morbid obesity, CAD status post CABG in 2010, diabetes mellitus, chronic venous stasis, morbid obesity and sleep apnea with noncompliance. Patient described 2 weeks of lower extremity edema with tenderness and pain. Was unable to apply his compression stockings at home. Did note a fever of 101 prompting evaluation in the emergency department. States that he has not been very mobile at home. Previously walked with out a cane or walker. Patient was started on IV vancomycin and IV Zosyn on admission. She states that he has been compliant with his furosemide therapy at home. Does have significant edema in bilateral lower extremities. Will check for DVTs with ultrasound given his complaint of poor mobility in the past 2 weeks. Reason For Visit: VENOUS STASIS LEG CELLULITIS MORBID OBESITY DM Physical Exam Vital Signs: Temp Pulse Resp BP Pulse Ox 98.3 F 77 20 97/78 L 93 10/05/17 16:02 10/05/17 16:02 10/05/17 16:02 10/05/17 16:02 10/05/17 16:02 Intake & Output 10/04/17 10/05/17 10/06/17 06:59 06:59 06:59 Intake Total 100 350 Balance 100 350 Weight 119.6 kg General appearance: PRESENT: no acute distress. ABSENT: mild distress Head exam: PRESENT: atraumatic, normocephalic Eye exam: PRESENT: EOMI. ABSENT: conjunctival injection Ear exam: PRESENT: normal external ear exam. ABSENT: bleeding Mouth exam: PRESENT: moist. ABSENT: dry mucosa Throat exam: ABSENT: post pharyngeal erythema, tonsillar exudate Neck exam: ABSENT: full ROM, tenderness, thyromegaly Respiratory exam: ABSENT: rales, rhonchi, tachypnea, unlabored Cardiovascular exam: PRESENT: RRR, +S1, +S2 Pulses: ABSENT: normal carotid pulses, normal dorsalis pedis pul Vascular exam: PRESENT: normal capillary refill. ABSENT: pallor GI/Abdominal exam: ABSENT: ascites, hyperactive bowel sounds, hypoactive bowel sounds, Ruiz's sign, normal bowel sounds Extremities exam: PRESENT: pedal edema. ABSENT: calf tenderness, joint swelling Musculoskeletal exam: PRESENT: full ROM. ABSENT: ambulatory Neurological exam: PRESENT: alert, oriented to person, oriented to place, oriented to time, oriented to situation, CN II-XII grossly intact Psychiatric exam: ABSENT: agitated, anxious, flat affect, manic Focused psych exam: ABSENT: catatonic, paranoid Skin exam: PRESENT: erythema, warm, other - Left lower extremity erythema and warmth worse than right lower extremity erythema. Bilateral lower extremity edema 2+. Results Laboratory Results: 10/05/17 06:05 Urine Color YELLOW Urine Appearance CLEAR Urine pH 5.0 Ur Specific [place] 1.016 Urine Protein NEGATIVE Urine Glucose (UA) 50 H Urine Ketones NEGATIVE Urine Blood NEGATIVE Urine Nitrite NEGATIVE Ur Leukocyte Esterase NEGATIVE Urine WBC (Auto) 0 Impressions: Chest X-Ray 10/05/17 03:39 IMPRESSION: No acute disease. Assessment & Plan - Diagnosis (1) Cellulitis Qualifiers: Site of cellulitis: extremity Site of cellulitis of extremity: lower extremity Laterality: unspecified laterality Qualified Code(s): L03.119 - Cellulitis of unspecified part of limb Is this a current diagnosis for this admission?: Yes Plan: Continue vancomycin and change Zosyn to Cefepime to decrease renal injury risk. continue to monitor vitals closely in hospital. continue IV lasix (2) Lower extremity edema Is this a current diagnosis for this admission?: Yes Plan: Change his oral lasix to IV at 40 mg. (3) Coronary artery disease Is this a current diagnosis for this admission?: Yes Plan: Continue current medications. (4) Morbid obesity with BMI of 40.0-44.9, adult Is this a current diagnosis for this admission?: Yes Plan: TSH within normal range. encouraged caloric restriction. (5) Uncontrolled diabetes mellitus Qualifiers: Diabetes mellitus type: type 1 Is this a current diagnosis for this admission?: Yes Plan: continue current medications. - Time Time Spent with patient: 15-24 minutes - Inpatient Certification Based on my medical assessment, after consideration of the patient's comorbidities, presenting symptoms, or acuity I expect that the services needed warrant INPATIENT care.: Yes I certify that my determination is in accordance with my understanding of Medicare's requirements for reasonable and necessary INPATIENT services [42 CFR 412.3e].: Yes Medical Necessity: Need Close Monitoring Due to Risk of Patient Decompensation
[2017-10-05] MEDS: CEFEPIME 2 GM/D5W RTU 2 GM/50 ML RTUPB IV SCH (21:53)
[2017-10-05] MEDS: SIMVASTATIN 40 MG TABLET PO SCH (21:54)
[2017-10-06] MEDS: HEPARIN SOD (PORCINE) 5,000 UNIT/ML 1 ML SYRINGE SUBCUT SCH ×3 (06:05→21:46)
[2017-10-06] MEDS: VANCOMYCIN HCL 750 MG in DEXTROSE 5%-WATER 250 ML IV SCH ×2 (06:06→17:56)
[2017-10-06 06:40] LABS: ABSOLUTE EOSINOPHILS # (AUTO) 0.2 10^3/uL (0.0-0.6); ABSOLUTE LYMPHOCYTES (AUTO) 1.4 10^3/uL (0.5-4.7); ABSOLUTE MONOCYTES (AUTO) 0.5 10^3/uL (0.1-1.4); ABSOLUTE NEUT (AUTO) 5.9 10^3/uL (1.7-8.2); BASOPHILS % (AUTO) 0.1 % (0-2); HEMATOCRIT 32.2 % (37.9-51.0); HEMOGLOBIN 11.2 g/dL (13.5-17.0); LYMPHOCYTES % (AUTO) 17.3 % (13-45); MEAN CORPUSCULAR HEMOGLOBIN 30.8 pg (27.0-33.4); MEAN CORPUSCULAR HGB CONC 34.8 g/dL (32.0-36.0); MEAN CORPUSCULAR VOLUME 89 fl (80-97); MONOCYTES % (AUTO) 6.1 % (3-13); PLATELET COUNT 168 10^3/uL (150-450); RED BLOOD COUNT 3.64 10^6/uL (4.35-5.55); SEGMENTED NEUTROPHILS % (AUTO) 73.5 % (42-78); TOTAL CELLS COUNTED % (AUTO) 100 %
[2017-10-06 07:06] LABS: ANION GAP 11 (5-19); BLOOD UREA NITROGEN 28 mg/dL (7-20); CARBON DIOXIDE 25 mmol/L (22-30); CHLORIDE 106 mmol/L (98-107); GLUCOSE 160 mg/dL (75-110); POTASSIUM 4.4 mmol/L (3.6-5.0); SODIUM 142.2 mmol/L (137-145)
[2017-10-06] MEDS: INSULIN GLARGINE,HUM.REC.ANLOG 1,000 UNIT/10 ML UNIT SUBCUT SCH (08:59)
[2017-10-06] MEDS ORDERED: FUROSEMIDE INJ/PF 40 MG/4 ML SDV IV SCH (10:00)
[2017-10-06] MEDS: LISINOPRIL 10 MG TABLET PO SCH (10:15)
[2017-10-06] MEDS: ASPIRIN 81 MG TABLET, CHEWABLE PO SCH (10:16)
[2017-10-06] MEDS: HYDROCHLOROTHIAZIDE 12.5 MG TABLET PO SCH (10:16)
[2017-10-06] MEDS: METOPROLOL SUCCINATE 50 MG TAB.SR.24H PO SCH (10:16)
[2017-10-06] MEDS: CLOPIDOGREL BISULFATE 75 MG TABLET PO SCH (10:16)
[2017-10-06] MEDS: DOCUSATE SODIUM 100 MG CAPSULE PO SCH ×2 (10:16→17:56)
[2017-10-06] MEDS: CEFEPIME 2 GM/D5W RTU 2 GM/50 ML RTUPB IV SCH ×2 (10:17→21:46)
[2017-10-06] MEDS: INSULIN LISPRO 100 UNIT/ML 3 ML VIAL SUBCUT PRN ×2 (13:33→17:57)
--- NOTE | 2017-10-06 16:54 | RADIOLOGY REPORT (SQ) ---
EXAM DESCRIPTION: VENOUS BILATERAL LOWER COMPLETED DATE/TIME: 10/06/2017 4:05 pm REASON FOR STUDY: DVT evaluation in both legs, edema, pain, cellulitis, venous stasis COMPARISON: None. TECHNIQUE: Dynamic and static oliva scale and color images acquired of both lower extremity venous sy stems. Selected spectral images acquired with additional compression and augmentation maneuvers. Imag es stored on PACS. LIMITATIONS: None. FINDINGS: RIGHT LEG COMMON FEMORAL AND FEMORAL: Normal phasicity, compression and augmentation. No visualized echogenic m aterial on oliva scale. No defects on color images. POPLITEAL: Normal compression and augmentation. No visualized echogenic material on oliva scale. No de fects on color images. CALF VESSELS: Normal compression and augmentation. No visualized echogenic material on oliva scale. No defects on color image. GSV AND SSV: Normal compression. No visualized echogenic material on oliva scale. No defects on color images. ANY DEEP VENOUS INSUFFICIENCY: Not evaluated. ANY EVIDENCE OF POPLITEAL CYST: No. OTHER: No other significant finding. LEFT LEG COMMON FEMORAL AND FEMORAL: Normal phasicity, compression and augmentation. No visualized echogenic m aterial on oliva scale. No defects on color images. POPLITEAL: Normal compression and augmentation. No visualized echogenic material on oliva scale. No de fects on color images. CALF VESSELS: Normal compression and augmentation. No visualized echogenic material on oliva scale. No defects on color images. GSV AND SSV: Normal compression. No visualized echogenic material on oliva scale. No defects on color images. ANY DEEP VENOUS INSUFFICIENCY: Not evaluated. ANY EVIDENCE POPLITEAL CYST: No. OTHER: No other significant finding. IMPRESSION: No evidence of DVT or SVT in either leg. No venous reflux is seen. TECHNICAL DOCUMENTATION: JOB ID: [id number] [employer]- All Rights Reserved Reading location - IP/workstation name: [email or web address]
[2017-10-06] MEDS: FUROSEMIDE INJ/PF 40 MG/4 ML SDV IV SCH (17:56)
[2017-10-06 18:21] LABS: VANCOMYCIN,TROUGH 13.7 ug/mL (5.0-20.0)
--- NOTE | 2017-10-06 21:33 | PDOC PROGRESS REPORT ---
Subjective Progress Note for:: 10/06/17 Subjective:: 66-year-old male with a past medical history significant for morbid obesity, CAD status post CABG in 2010, diabetes mellitus, chronic venous stasis, morbid obesity and sleep apnea with noncompliance. Patient described 2 weeks of lower extremity edema with tenderness and pain. Was unable to apply his compression stockings at home. Did note a fever of 101 prompting evaluation in the emergency department. States that he has not been very mobile at home. Continued on Vancomycin/Cefepime, with clinical improvement. No growth on blood cultures. Leukocytosis improving. Reason For Visit: CELLULITIS, LOWER EXTREMITY EDEMA Physical Exam Vital Signs: Temp Pulse Resp BP Pulse Ox 99.5 F 79 18 132/49 H 97 10/06/17 18:52 10/06/17 18:52 10/06/17 18:52 10/06/17 18:52 10/06/17 18:52 General appearance: PRESENT: no acute distress, cooperative Head exam: PRESENT: atraumatic, normocephalic Eye exam: PRESENT: EOMI, PERRLA. ABSENT: nystagmus Ear exam: PRESENT: normal external ear exam. ABSENT: bleeding Mouth exam: PRESENT: moist. ABSENT: dry mucosa Neck exam: ABSENT: carotid bruit, tenderness Respiratory exam: ABSENT: accessory muscle use, rales, rhonchi, wheezes Cardiovascular exam: PRESENT: RRR, +S1, +S2 Pulses: PRESENT: normal radial pulses, normal dorsalis pedis pul GI/Abdominal exam: PRESENT: soft. ABSENT: mass, rigid Extremities exam: PRESENT: tenderness. ABSENT: joint swelling Musculoskeletal exam: PRESENT: ambulatory, full ROM Neurological exam: PRESENT: alert, oriented to person, oriented to place, oriented to time, oriented to situation, CN II-XII grossly intact Psychiatric exam: ABSENT: agitated, anxious Focused psych exam: ABSENT: catatonic, paranoid Skin exam: PRESENT: erythema, other - bilateral lower extremity erythema Left> right. ABSENT: mottled Results Impressions: Chest X-Ray 10/05/17 03:39 IMPRESSION: No acute disease. Venous Doppler Study 10/06/17 00:00 IMPRESSION: No evidence of DVT or SVT in either leg. No venous reflux is seen. Assessment & Plan - Diagnosis (1) Cellulitis Qualifiers: Site of cellulitis: extremity Site of cellulitis of extremity: lower extremity Laterality: unspecified laterality Qualified Code(s): L03.119 - Cellulitis of unspecified part of limb Is this a current diagnosis for this admission?: Yes Plan: no growth on blood cultures continue Vancomycin/Cefepime improving clinical picture of cellulitis improving leukocytosis (2) Lower extremity edema Is this a current diagnosis for this admission?: Yes Plan: increasing IV lasix to 40mg IV BID (3) Coronary artery disease Is this a current diagnosis for this admission?: Yes Plan: continue current medications (4) Morbid obesity with BMI of 40.0-44.9, adult Is this a current diagnosis for this admission?: Yes Plan: TSH within normal range. encouraged caloric restriction. (5) Uncontrolled diabetes mellitus Qualifiers: Diabetes mellitus type: type 1 Is this a current diagnosis for this admission?: Yes Plan: continue 40u of Lantus and SSI. - Time Time Spent with patient: 15-24 minutes - Inpatient Certification Based on my medical assessment, after consideration of the patient's comorbidities, presenting symptoms, or acuity I expect that the services needed warrant INPATIENT care.: Yes I certify that my determination is in accordance with my understanding of Medicare's requirements for reasonable and necessary INPATIENT services [42 CFR 412.3e].: Yes Medical Necessity: Need Close Monitoring Due to Risk of Patient Decompensation
[2017-10-06] MEDS: SIMVASTATIN 40 MG TABLET PO SCH (21:46)
[2017-10-07 05:08] LABS: HEMATOCRIT 33.9 % (37.9-51.0); HEMOGLOBIN 11.8 g/dL (13.5-17.0); MEAN CORPUSCULAR HEMOGLOBIN 30.2 pg (27.0-33.4); MEAN CORPUSCULAR HGB CONC 34.8 g/dL (32.0-36.0); MEAN CORPUSCULAR VOLUME 87 fl (80-97); PLATELET COUNT 194 10^3/uL (150-450); RED BLOOD COUNT 3.92 10^6/uL (4.35-5.55); RED CELL DISTRIBUTION WIDTH 13.7 % (11.5-14.0); WHITE BLOOD COUNT 9.5 10^3/uL (4.0-10.5)
[2017-10-07 05:39] LABS: ALBUMIN 3.6 g/dL (3.5-5.0); ANION GAP 14 (5-19); BLOOD UREA NITROGEN 26 mg/dL (7-20); CALCIUM 9.6 mg/dL (8.4-10.2); CARBON DIOXIDE 24 mmol/L (22-30); CHLORIDE 104 mmol/L (98-107); GLUCOSE 166 mg/dL (75-110); PHOSPHORUS 3.6 mg/dL (2.5-4.5); POTASSIUM 4.1 mmol/L (3.6-5.0); SODIUM 141.9 mmol/L (137-145)
[2017-10-07] MEDS: FUROSEMIDE INJ/PF 40 MG/4 ML SDV IV SCH ×2 (06:10→18:25)
[2017-10-07] MEDS: HEPARIN SOD (PORCINE) 5,000 UNIT/ML 1 ML SYRINGE SUBCUT SCH ×3 (06:11→21:43)
[2017-10-07] MEDS: VANCOMYCIN HCL 750 MG in DEXTROSE 5%-WATER 250 ML IV SCH ×2 (06:11→18:25)
[2017-10-07] MEDS: ASPIRIN 81 MG TABLET, CHEWABLE PO SCH (10:02)
[2017-10-07] MEDS: METOPROLOL SUCCINATE 50 MG TAB.SR.24H PO SCH (10:02)
[2017-10-07] MEDS: DOCUSATE SODIUM 100 MG CAPSULE PO SCH ×2 (10:02→18:25)
[2017-10-07] MEDS: CLOPIDOGREL BISULFATE 75 MG TABLET PO SCH (10:03)
[2017-10-07] MEDS: INSULIN GLARGINE,HUM.REC.ANLOG 1,000 UNIT/10 ML UNIT SUBCUT SCH (10:03)
[2017-10-07] MEDS: LISINOPRIL 10 MG TABLET PO SCH (10:03)
[2017-10-07] MEDS: INSULIN LISPRO 100 UNIT/ML 3 ML VIAL SUBCUT PRN ×2 (10:04→13:51)
[2017-10-07] MEDS: CEFEPIME 2 GM/D5W RTU 2 GM/50 ML RTUPB IV SCH ×2 (10:26→21:43)
--- NOTE | 2017-10-07 14:46 | PDOC PROGRESS REPORT ---
Subjective Progress Note for:: 10/07/17 - seen on rounds this afternoon Subjective:: states his legs are hurting from the swelling. tells me he's had this type of situation in the past Reason For Visit: CELLULITIS, LOWER EXTREMITY EDEMA Physical Exam Vital Signs: Temp Pulse Resp BP Pulse Ox 99.0 F 75 18 122/46 L 99 10/07/17 11:31 10/07/17 11:31 10/07/17 11:31 10/07/17 11:31 10/07/17 11:31 Intake & Output 10/06/17 10/07/17 10/08/17 06:59 06:59 06:59 Intake Total 300 250 Balance 300 250 Weight 263 lb 10.766 oz General appearance: PRESENT: no acute distress, morbidly obese Head exam: PRESENT: atraumatic, normocephalic Eye exam: PRESENT: EOMI, PERRLA. ABSENT: scleral icterus Ear exam: PRESENT: normal external ear exam Mouth exam: PRESENT: tongue midline Respiratory exam: PRESENT: clear to auscultation michaela, symmetrical Cardiovascular exam: PRESENT: +S1, +S2 Pulses: PRESENT: +2 pedal pulses bilateral GI/Abdominal exam: PRESENT: normal bowel sounds, soft. ABSENT: tenderness Extremities exam: PRESENT: +2 edema - b/l LE up to knee 2+ edema with erythema of the gallegos- mild TTP of the area- some warmth Neurological exam: PRESENT: alert, awake, oriented to person, oriented to place , oriented to time, oriented to situation, CN II-XII grossly intact Skin exam: PRESENT: dry, erythema, warm Results Laboratory Results: 10/07/17 04:33 10/07/17 04:33 10/07/17 10/07/17 04:33 04:33 WBC 9.5 RBC 3.92 L Hgb 11.8 L Hct 33.9 L MCV 87 MCH 30.2 MCHC 34.8 RDW 13.7 Plt Count 194 Sodium 141.9 Potassium 4.1 Chloride 104 Carbon Dioxide 24 Anion Gap 14 BUN 26 H Creatinine 1.25 Est GFR ( Amer) > 60 Est GFR (Non-Af Amer) 58 L Glucose 166 H Calcium 9.6 Phosphorus 3.6 Albumin 3.6 Impressions: Chest X-Ray 10/05/17 03:39 IMPRESSION: No acute disease. Venous Doppler Study 10/06/17 00:00 IMPRESSION: No evidence of DVT or SVT in either leg. No venous reflux is seen. Assessment & Plan - Diagnosis (1) Cellulitis Qualifiers: Site of cellulitis: extremity Site of cellulitis of extremity: lower extremity Laterality: unspecified laterality Qualified Code(s): L03.119 - Cellulitis of unspecified part of limb Is this a current diagnosis for this admission?: Yes (2) Lower extremity edema Is this a current diagnosis for this admission?: Yes (3) Acute kidney injury Is this a current diagnosis for this admission?: Yes - Time Time Spent with patient: 15-24 minutes - Plan Summary Plan Summary: LE cellulitis- started on IV antibiotics with cefepime and vanco- day#2 of antibiotics. BCx neg so far. U/S of LE shows no DVT thankfully. LE edema- unclear cause- on IV lasix 40mg daily- he tells me it still hurts- c/ w on lasix for now. monitor Cr. ?should we get ECHO. ?dependent edema. ? lymphadema. TSH normal DM- A1c >8. discussed and counseled about diet, medications compliance and lifestyle modifications.
[2017-10-07] MEDS: SIMVASTATIN 40 MG TABLET PO SCH (21:43)
[2017-10-08] MEDS: FUROSEMIDE INJ/PF 40 MG/4 ML SDV IV SCH ×3 (05:50→17:21)
[2017-10-08] MEDS: HEPARIN SOD (PORCINE) 5,000 UNIT/ML 1 ML SYRINGE SUBCUT SCH ×3 (05:50→21:35)
[2017-10-08] MEDS: VANCOMYCIN HCL 750 MG in DEXTROSE 5%-WATER 250 ML IV SCH (05:51)
[2017-10-08] MEDS: CLOPIDOGREL BISULFATE 75 MG TABLET PO SCH (09:40)
[2017-10-08] MEDS: METOPROLOL SUCCINATE 50 MG TAB.SR.24H PO SCH (09:40)
[2017-10-08] MEDS: ASPIRIN 81 MG TABLET, CHEWABLE PO SCH (09:40)
[2017-10-08] MEDS: LISINOPRIL 10 MG TABLET PO SCH (09:40)
[2017-10-08] MEDS: DOCUSATE SODIUM 100 MG CAPSULE PO SCH ×2 (09:40→17:16)
[2017-10-08] MEDS: INSULIN GLARGINE,HUM.REC.ANLOG 1,000 UNIT/10 ML UNIT SUBCUT SCH (09:41)
[2017-10-08] MEDS: INSULIN LISPRO 100 UNIT/ML 3 ML VIAL SUBCUT PRN ×3 (09:41→17:17)
[2017-10-08] MEDS: CEFEPIME 2 GM/D5W RTU 2 GM/50 ML RTUPB IV SCH ×2 (09:56→21:36)
[2017-10-08] MEDS: ACETAMINOPHEN 325 MG TABLET PO PRN (14:04)
--- NOTE | 2017-10-08 15:37 | PDOC PROGRESS REPORT ---
Subjective Progress Note for:: 10/08/17 - seen on rounds this afternoon Subjective:: states he feels the same. pain level about 5/10. Reason For Visit: CELLULITIS, LOWER EXTREMITY EDEMA Physical Exam Vital Signs: Temp Pulse Resp BP Pulse Ox 98.9 F 78 17 121/58 L 97 10/08/17 11:16 10/08/17 11:16 10/08/17 11:16 10/08/17 11:16 10/08/17 11:16 Intake & Output 10/07/17 10/08/17 10/09/17 06:59 06:59 06:59 Intake Total 300 718 560 Balance 300 718 560 Weight 263 lb 10.766 oz 264 lb 5.348 oz General appearance: PRESENT: no acute distress, morbidly obese Head exam: PRESENT: atraumatic, normocephalic Eye exam: PRESENT: EOMI, PERRLA. ABSENT: scleral icterus Ear exam: PRESENT: normal external ear exam Neck exam: ABSENT: tracheal deviation Respiratory exam: PRESENT: clear to auscultation michaela, symmetrical Cardiovascular exam: PRESENT: +S1, +S2 Pulses: PRESENT: +2 pedal pulses bilateral GI/Abdominal exam: PRESENT: normal bowel sounds, soft. ABSENT: tenderness Extremities exam: PRESENT: pedal edema, +2 edema - mostly of the feet- but better today L>R Neurological exam: PRESENT: alert, awake, oriented to person, oriented to place , oriented to time, oriented to situation, CN II-XII grossly intact Skin exam: PRESENT: dry, erythema - b/l shins but L>R- improving- less erythematous today, warm Results Laboratory Results: 10/07/17 04:33 10/07/17 04:33 Impressions: Chest X-Ray 10/05/17 03:39 IMPRESSION: No acute disease. Venous Doppler Study 10/06/17 00:00 IMPRESSION: No evidence of DVT or SVT in either leg. No venous reflux is seen. Assessment & Plan - Diagnosis (1) Cellulitis Qualifiers: Site of cellulitis: extremity Site of cellulitis of extremity: lower extremity Laterality: unspecified laterality Qualified Code(s): L03.119 - Cellulitis of unspecified part of limb Is this a current diagnosis for this admission?: Yes Plan: improving on IV antibiotics-Rocephin- continue for now. negative cultures so far. i have d/c'd his vanco (2) Lower extremity edema Is this a current diagnosis for this admission?: Yes Plan: still lasix IV 40mg BID- (3) Acute kidney injury Is this a current diagnosis for this admission?: Yes Plan: resolved
[2017-10-08] MEDS: SIMVASTATIN 40 MG TABLET PO SCH (21:36)
[2017-10-08] MEDS ORDERED: GABAPENTIN 100 MG CAPSULE PO ONE (22:00)
[2017-10-08 23:30] LABS: IRON 24.5 ug/dL (49-181)
[2017-10-09] MEDS: HEPARIN SOD (PORCINE) 5,000 UNIT/ML 1 ML SYRINGE SUBCUT SCH ×3 (05:55→21:26)
[2017-10-09] MEDS: FUROSEMIDE INJ/PF 40 MG/4 ML SDV IV SCH ×2 (05:56→09:27)
[2017-10-09] MEDS ORDERED: INSULIN GLARGINE,HUM.REC.ANLOG 1,000 UNIT/10 ML UNIT SUBCUT SCH (07:48)
[2017-10-09] MEDS ORDERED: INSULIN GLARGINE,HUM.REC.ANLOG 1,000 UNIT/10 ML UNIT SUBCUT ONE (08:45)
[2017-10-09] MEDS: INSULIN LISPRO 100 UNIT/ML 3 ML VIAL SUBCUT PRN ×3 (09:03→17:36)
[2017-10-09] MEDS: METOPROLOL SUCCINATE 50 MG TAB.SR.24H PO SCH (09:03)
[2017-10-09] MEDS: LISINOPRIL 10 MG TABLET PO SCH (09:04)
[2017-10-09] MEDS: ASPIRIN 81 MG TABLET, CHEWABLE PO SCH (09:04)
[2017-10-09] MEDS: CLOPIDOGREL BISULFATE 75 MG TABLET PO SCH (09:04)
[2017-10-09] MEDS: CEFEPIME 2 GM/D5W RTU 2 GM/50 ML RTUPB IV SCH ×2 (09:04→21:26)
[2017-10-09] MEDS: DOCUSATE SODIUM 100 MG CAPSULE PO SCH ×2 (09:10→17:36)
[2017-10-09 09:13] LABS: ANION GAP 15 (5-19); BLOOD UREA NITROGEN 34 mg/dL (7-20); CALCIUM 9.3 mg/dL (8.4-10.2); CARBON DIOXIDE 25 mmol/L (22-30); CHLORIDE 101 mmol/L (98-107); GLUCOSE 270 mg/dL (75-110); POTASSIUM 4.1 mmol/L (3.6-5.0); SODIUM 141.3 mmol/L (137-145)
[2017-10-09] MEDS: GABAPENTIN 100 MG CAPSULE PO SCH ×3 (09:27→17:36)
--- NOTE | 2017-10-09 15:42 | PDOC PROGRESS REPORT ---
Subjective Progress Note for:: 10/09/17 - Seen on rounds this morning Subjective:: States that his leg is still swollen but is redness of the left leg is much better. States that he is also having some shaking of his right upper arm. States that it is normal for him but today is just a little bit more worse. I spoke to his at bedside who also agrees that he has shaking of his right upper arm. They both think that it is a residual effect from the stroke that he had many years ago. 66-year-old male who was admitted initially for lower extremity edema with lower extremity cellulitis and was started on IV Rocephin and bank and Lasix 40 mg IV twice daily. He did have ultrasound of his lower extremities which did not show any DVT. Reason For Visit: CELLULITIS, LOWER EXTREMITY EDEMA Physical Exam Vital Signs: Temp Pulse Resp BP Pulse Ox 98.7 F 88 16 112/78 97 10/09/17 12:00 10/09/17 12:00 10/09/17 12:00 10/09/17 12:00 10/09/17 12:00 Intake & Output 10/08/17 10/09/17 10/10/17 06:59 06:59 06:59 Intake Total 718 610 50 Balance 718 610 50 Weight 264 lb 5.348 oz General appearance: PRESENT: no acute distress Head exam: PRESENT: atraumatic, normocephalic Eye exam: PRESENT: EOMI, PERRLA. ABSENT: scleral icterus Ear exam: PRESENT: normal external ear exam Mouth exam: PRESENT: neck supple, tongue midline Neck exam: ABSENT: tracheal deviation Respiratory exam: PRESENT: clear to auscultation michaela, symmetrical Cardiovascular exam: PRESENT: +S1, +S2 Pulses: PRESENT: +1 pedal pulses bilateral GI/Abdominal exam: PRESENT: normal bowel sounds, soft. ABSENT: tenderness Extremities exam: PRESENT: tenderness - Around the area of the swelling and the erythema of the gallegos there is tenderness, +2 edema - Bilateral lower extremity, left greater than right Neurological exam: PRESENT: alert, awake, oriented to person, oriented to place , oriented to time, oriented to situation, CN II-XII grossly intact Skin exam: PRESENT: erythema - Bilateral lower extremity but mostly of the left- erythema is improving-mild tender to palpation, warm Results Laboratory Results: 10/07/17 04:33 10/09/17 08:39 10/08/17 10/09/17 22:25 08:39 Sodium 141.3 Potassium 4.1 Chloride 101 Carbon Dioxide 25 Anion Gap 15 BUN 34 H Creatinine 1.31 H Est GFR ( Amer) > 60 Est GFR (Non-Af Amer) 55 L Glucose 270 H Calcium 9.3 Iron 24.5 L Ferritin 184.00 Impressions: Chest X-Ray 10/05/17 03:39 IMPRESSION: No acute disease. Venous Doppler Study 10/06/17 00:00 IMPRESSION: No evidence of DVT or SVT in either leg. No venous reflux is seen. Assessment & Plan - Diagnosis (1) Cellulitis Qualifiers: Site of cellulitis: extremity Site of cellulitis of extremity: lower extremity Laterality: unspecified laterality Qualified Code(s): L03.119 - Cellulitis of unspecified part of limb Is this a current diagnosis for this admission?: Yes Plan: improving on IV antibiotics-Rocephin- continue for now. negative cultures so far. i have d/c'd his vanco. Thankfully his blood culture remains negative (2) Lower extremity edema Is this a current diagnosis for this admission?: Yes Plan: He was on IV Lasix 40 mg twice daily and I have switched her to IV Lasix 40 mg daily. His creatinine number went up a little bit more and I am guessing this is due to the IV Lasix. His edema has improved somewhat but remains. We have discussed about elevating his lower extremity more while he sitting or laying in bed. I discussed this with his and patient and they both agree that this would be a good idea. We have also discussed about putting some Josr wrap around feet of his left foot to drain some of the fluid and hopefully that will help with the swelling. Nursing was present when we discussed this. (3) Acute kidney injury Is this a current diagnosis for this admission?: Yes Plan: His creatinine number bumped a little bit again today but within reasonable limits. He is still having urine output. We will continue to monitor for now. - Plan Summary Plan Summary: I think we can discharge him home once this swelling has come down a little bit. He may benefit for a few more days of p.o. antibiotics but will have to reevaluate tomorrow.
[2017-10-09] MEDS: SIMVASTATIN 40 MG TABLET PO SCH (21:27)
[2017-10-09] MEDS: ACETAMINOPHEN 325 MG TABLET PO PRN (23:25)
[2017-10-10] MEDS: HEPARIN SOD (PORCINE) 5,000 UNIT/ML 1 ML SYRINGE SUBCUT SCH ×3 (05:19→21:35)
[2017-10-10 06:01] LABS: ANION GAP 12 (5-19); BLOOD UREA NITROGEN 43 mg/dL (7-20); CALCIUM 9.4 mg/dL (8.4-10.2); CARBON DIOXIDE 27 mmol/L (22-30); CHLORIDE 102 mmol/L (98-107); GLUCOSE 194 mg/dL (75-110); POTASSIUM 3.9 mmol/L (3.6-5.0); SODIUM 140.8 mmol/L (137-145)
[2017-10-10] MEDS ORDERED: INSULIN GLARGINE,HUM.REC.ANLOG 1,000 UNIT/10 ML UNIT SUBCUT SCH ×2 (08:00→15:55)
[2017-10-10] MEDS: INSULIN LISPRO 100 UNIT/ML 3 ML VIAL SUBCUT PRN ×3 (08:09→17:11)
[2017-10-10] MEDS: ASPIRIN 81 MG TABLET, CHEWABLE PO SCH (09:21)
[2017-10-10] MEDS: METOPROLOL SUCCINATE 50 MG TAB.SR.24H PO SCH (09:21)
[2017-10-10] MEDS: GABAPENTIN 100 MG CAPSULE PO SCH ×3 (09:21→17:10)
[2017-10-10] MEDS: CLOPIDOGREL BISULFATE 75 MG TABLET PO SCH (09:22)
[2017-10-10] MEDS: DOCUSATE SODIUM 100 MG CAPSULE PO SCH ×2 (09:22→17:11)
[2017-10-10] MEDS: LISINOPRIL 10 MG TABLET PO SCH (09:22)
[2017-10-10] MEDS: FUROSEMIDE INJ/PF 40 MG/4 ML SDV IV SCH (09:22)
[2017-10-10] MEDS: CEFEPIME 2 GM/D5W RTU 2 GM/50 ML RTUPB IV SCH ×2 (09:23→11:29)
[2017-10-10] MEDS ORDERED: FUROSEMIDE 20 MG TABLET PO ONE (11:15)
--- NOTE | 2017-10-10 15:54 | PDOC PROGRESS REPORT ---
Subjective Progress Note for:: 10/10/17 Subjective:: Assumed care today. Patient was admitted for leg cellulitis. No acute event overnight. Patient's legs remain swollen and erythematous but per patient and RN, they are slightly better compared to the past 2 days. No fever or chills. Patient is tolerating diet well. Reason For Visit: CELLULITIS, LOWER EXTREMITY EDEMA Physical Exam Vital Signs: Temp Pulse Resp BP Pulse Ox 98.6 F 70 14 123/58 L 99 10/10/17 12:00 10/10/17 12:00 10/10/17 12:00 10/10/17 12:00 10/10/17 12:00 Intake & Output 10/09/17 10/10/17 10/11/17 06:59 06:59 06:59 Intake Total 610 695 50 Balance 610 695 50 Weight 263 lb 10.766 oz General appearance: PRESENT: no acute distress, well-developed, well-nourished Head exam: PRESENT: atraumatic, normocephalic Eye exam: PRESENT: conjunctiva pink, EOMI, PERRLA. ABSENT: scleral icterus Ear exam: PRESENT: normal external ear exam Neck exam: ABSENT: carotid bruit, JVD, lymphadenopathy, thyromegaly Respiratory exam: PRESENT: clear to auscultation michaela. ABSENT: rales, rhonchi, wheezes Cardiovascular exam: PRESENT: RRR. ABSENT: diastolic murmur, rubs, systolic murmur Pulses: PRESENT: normal dorsalis pedis pul GI/Abdominal exam: PRESENT: normal bowel sounds, soft. ABSENT: distended, guarding, mass, organolmegaly, rebound, tenderness Rectal exam: PRESENT: deferred Extremities exam: PRESENT: +2 edema, other - minimal tenderness on both gallegos with slight erythema Neurological exam: PRESENT: alert, awake, oriented to person, oriented to place , oriented to time, oriented to situation, CN II-XII grossly intact. ABSENT: motor sensory deficit Results Laboratory Results: 10/07/17 04:33 10/10/17 04:51 10/10/17 04:51 Sodium 140.8 Potassium 3.9 Chloride 102 Carbon Dioxide 27 Anion Gap 12 BUN 43 H Creatinine 1.79 H Est GFR ( Amer) 46 L Est GFR (Non-Af Amer) 38 L Glucose 194 H Calcium 9.4 Impressions: Chest X-Ray 10/05/17 03:39 IMPRESSION: No acute disease. Venous Doppler Study 10/06/17 00:00 IMPRESSION: No evidence of DVT or SVT in either leg. No venous reflux is seen. Assessment & Plan - Diagnosis (1) Cellulitis Qualifiers: Site of cellulitis: extremity Site of cellulitis of extremity: lower extremity Laterality: unspecified laterality Qualified Code(s): L03.119 - Cellulitis of unspecified part of limb Is this a current diagnosis for this admission?: Yes Plan: Improving. Blood cultures are negative. Switch cefepime to ceftriaxone. No drainage or concern for abscess. No concern for Pseudomonas at this time. Patient should continue to improve with Rocephin. (2) Acute kidney injury Is this a current diagnosis for this admission?: Yes Plan: Likely prerenal. Decrease lasix to 20 mg daily. Repeat BMP tomorrow AM. (3) Uncontrolled diabetes mellitus Qualifiers: Diabetes mellitus type: type 1 Is this a current diagnosis for this admission?: Yes Plan: Noted sugars overnight. Increase Lantus to 50 u daily. Continue sliding scale. (4) Coronary artery disease Is this a current diagnosis for this admission?: Yes Plan: Stable. Continue aspirin, clopidogrel and statin. - Time Time Spent with patient: 15-24 minutes
[2017-10-10] MEDS: SIMVASTATIN 40 MG TABLET PO SCH (21:35)
[2017-10-11] MEDS: HEPARIN SOD (PORCINE) 5,000 UNIT/ML 1 ML SYRINGE SUBCUT SCH ×3 (06:34→21:54)
[2017-10-11] MEDS: INSULIN GLARGINE,HUM.REC.ANLOG 1,000 UNIT/10 ML UNIT SUBCUT SCH (09:03)
[2017-10-11] MEDS: INSULIN LISPRO 100 UNIT/ML 3 ML VIAL SUBCUT PRN ×3 (09:04→17:52)
[2017-10-11] MEDS: CLOPIDOGREL BISULFATE 75 MG TABLET PO SCH (09:05)
[2017-10-11] MEDS: CEFTRIAXONE SODIUM 1,000 MG in NORMAL SALINE 50 ML IV SCH (09:05)
[2017-10-11] MEDS: GABAPENTIN 100 MG CAPSULE PO SCH ×3 (09:05→17:51)
[2017-10-11] MEDS: LISINOPRIL 10 MG TABLET PO SCH (09:06)
[2017-10-11] MEDS: DOCUSATE SODIUM 100 MG CAPSULE PO SCH ×2 (09:07→17:51)
[2017-10-11] MEDS: ASPIRIN 81 MG TABLET, CHEWABLE PO SCH (09:07)
[2017-10-11] MEDS: METOPROLOL SUCCINATE 50 MG TAB.SR.24H PO SCH (09:07)
[2017-10-11] MEDS: FUROSEMIDE 20 MG TABLET PO SCH (09:12)
[2017-10-11] MEDS ORDERED: CEFTRIAXONE 1 GM/D5W RTU 1 GM/50 ML RTUPB IV SCH (10:00)
[2017-10-11] MEDS: SIMVASTATIN 40 MG TABLET PO SCH (21:54)
[2017-10-12] MEDS: HEPARIN SOD (PORCINE) 5,000 UNIT/ML 1 ML SYRINGE SUBCUT SCH ×2 (06:36→13:59)
[2017-10-12 07:44] LABS: ABSOLUTE EOSINOPHILS # (AUTO) 0.3 10^3/uL (0.0-0.6); ABSOLUTE LYMPHOCYTES (AUTO) 1.4 10^3/uL (0.5-4.7); ABSOLUTE MONOCYTES (AUTO) 0.5 10^3/uL (0.1-1.4); ABSOLUTE NEUT (AUTO) 5.2 10^3/uL (1.7-8.2); BASOPHILS % (AUTO) 0.1 % (0-2); EOSINOPHILS % (AUTO) 3.8 % (0-6); HEMATOCRIT 33.3 % (37.9-51.0); HEMOGLOBIN 11.5 g/dL (13.5-17.0); LYMPHOCYTES % (AUTO) 18.6 % (13-45); MEAN CORPUSCULAR HGB CONC 34.6 g/dL (32.0-36.0); MEAN CORPUSCULAR VOLUME 87 fl (80-97); MONOCYTES % (AUTO) 6.9 % (3-13); PLATELET COUNT 226 10^3/uL (150-450); RED BLOOD COUNT 3.84 10^6/uL (4.35-5.55); RED CELL DISTRIBUTION WIDTH 13.7 % (11.5-14.0); SEGMENTED NEUTROPHILS % (AUTO) 70.6 % (42-78); TOTAL CELLS COUNTED % (AUTO) 100 %; WHITE BLOOD COUNT 7.4 10^3/uL (4.0-10.5)
[2017-10-12 08:06] LABS: ALANINE AMINOTRANSFERASE 34 U/L (21-72); ALBUMIN 3.4 g/dL (3.5-5.0); ALKALINE PHOSPHATASE 49 U/L (38-126); ANION GAP 12 (5-19); ASPARTATE AMINO TRANSFERASE 25 U/L (17-59); BILIRUBIN,DIRECT 0.4 mg/dL (0.0-0.4); BILIRUBIN,TOTAL 0.4 mg/dL (0.2-1.3); BLOOD UREA NITROGEN 40 mg/dL (7-20); CALCIUM 9.3 mg/dL (8.4-10.2); CARBON DIOXIDE 26 mmol/L (22-30); CHLORIDE 105 mmol/L (98-107); GLUCOSE 193 mg/dL (75-110); POTASSIUM 4.5 mmol/L (3.6-5.0); SODIUM 143.3 mmol/L (137-145); TOTAL PROTEIN 6.6 g/dL (6.3-8.2)
--- NOTE | 2017-10-12 08:16 | RADIOLOGY REPORT (SQ) ---
EXAM DESCRIPTION: U/S RETROPERITON (RENAL/AORTA) COMPLETED DATE/TIME: 10/12/2017 7:07 am REASON FOR STUDY: ILANA COMPARISON: 09/07/2016 TECHNIQUE: Dynamic and static grayscale images acquired of the kidneys and bladder and recorded on P ACS. Additional selected color Doppler and spectral images recorded. LIMITATIONS: The examination is limited due to the patient's body habitus. FINDINGS: RIGHT KIDNEY: The right kidney measures 11.9 cm, normal size. Normal echogenicity. No jean id or suspicious masses. No hydronephrosis. No calcifications. LEFT KIDNEY: The left kidney measures 12.1 cm, normal size. Normal echogenicity. No solid or suspici ous masses. No hydronephrosis. No calcifications. BLADDER: The urinary bladder is incompletely distended. OTHER FINDINGS: No other significant finding. IMPRESSION: 1. The examination is limited. No significant interval changes since the prior examina tion dated 09/07/2016. Normal renal ultrasound. TECHNICAL DOCUMENTATION: JOB ID: [id number] [employer]- All Rights Reserved Reading location - IP/workstation name: [email or web address]
[2017-10-12] MEDS: FUROSEMIDE 20 MG TABLET PO SCH (09:18)
[2017-10-12] MEDS: DOCUSATE SODIUM 100 MG CAPSULE PO SCH (09:18)
[2017-10-12] MEDS: ASPIRIN 81 MG TABLET, CHEWABLE PO SCH (09:18)
[2017-10-12] MEDS: GABAPENTIN 100 MG CAPSULE PO SCH ×2 (09:19→13:59)
[2017-10-12] MEDS: LISINOPRIL 10 MG TABLET PO SCH (09:19)
[2017-10-12] MEDS: METOPROLOL SUCCINATE 50 MG TAB.SR.24H PO SCH (09:19)
[2017-10-12] MEDS: CEFTRIAXONE SODIUM 1,000 MG in NORMAL SALINE 50 ML IV SCH (09:19)
[2017-10-12] MEDS: CLOPIDOGREL BISULFATE 75 MG TABLET PO SCH (09:19)
[2017-10-12] MEDS: INSULIN GLARGINE,HUM.REC.ANLOG 1,000 UNIT/10 ML UNIT SUBCUT SCH (09:19)
[2017-10-12] MEDS: INSULIN LISPRO 100 UNIT/ML 3 ML VIAL SUBCUT PRN ×2 (09:20→13:59)
[2017-10-12 14:29] VITALS: BP 110/84
== END 2017-10-12 15:55 | disposition home or self-care (01) | DRG 603 ==
LOC: ER 01:03 → EH 05:46 → 4W 14:11 → 4N 17:48 → OBSVTOIN 10-06 15:45
PROVIDERS: ADMIT Internal Medicine; ATTEND Internal Medicine
DX: L03.116 Cellulitis of left lower limb (principal); Z68.41 Body mass index [BMI] 40.0-44.9, adult; N17.9 Acute kidney failure, unspecified; I69.951 Hemiplegia and hemiparesis following unspecified cerebrovascular disease affecting right dominant side; E66.01 Morbid (severe) obesity due to excess calories; R60.9 Edema, unspecified; I25.10 Atherosclerotic heart disease of native coronary artery without angina pectoris; I87.8 Other specified disorders of veins; E11.65 Type 2 diabetes mellitus with hyperglycemia; G47.30 Sleep apnea, unspecified; M15.9 Polyosteoarthritis, unspecified; D72.829 Elevated white blood cell count, unspecified; Z90.49 Acquired absence of other specified parts of digestive tract; Z83.3 Family history of diabetes mellitus; Z82.49 Family history of ischemic heart disease and other diseases of the circulatory system; Z79.82 Long term (current) use of aspirin; Z79.4 Long term (current) use of insulin; Z79.899 Other long term (current) drug therapy; Z91.19 Patient's noncompliance with other medical treatment and regimen; Z95.1 Presence of aortocoronary bypass graft; Z95.5 Presence of coronary angioplasty implant and graft
CPT/HCPCS: 36415; 71045; 76770; 80048; 80053; 80069; 80202; 80307; 81001; 82728; 82962; 83036; 83540; 83880; 84443; 85025; 85027; 85610; 85730; 87040; 93970; 96365; 96366; 96367; 99285; G0378; G8978-GP; G8979-GP; J0692; J0696; J1644; J1815; J1940; J2543; J3370; J7060; J7620

== ENCOUNTER 2017-11-08 14:12 | Emergency (ER) | payer MEDICARE, OTHER ==
[2017-11-08] MEDS ORDERED: ACETAMINOPHEN 325 MG TABLET PO ONE (14:17)
--- NOTE | 2017-11-08 16:45 | ER Document Report ---
ED Extremity Problem, Lower - General Chief Complaint: Feet Swelling Stated Complaint: FOOT PAIN, SWELLING Time Seen by Provider: 11/08/17 16:40 Information source: Patient Notes: Chief complaint: Left foot pain and swelling, loose stools History of complain:( obtained from----patient) 67 years old male with a history of CVA 1 year ago, coronary artery disease with stents, diabetes hypertension, presents today with left lower extremity pain and swelling for last 2 days, left forearm and my, loose stools for last 6 days. No fever chills nauseous but no vomiting. Denies any chest pain shortness of breath. Denies any abdominal pain dysuria frequency urgency Onset: Gradual Duration: Last few days Severity: Moderate Quality: Sharp Context: As described above Exacerbating factor and relieving factors: Noncontributory REVIEW OF SYSTEMS: CONSTITUTIONAL : Denies fever, chills, or sweats. Denies recent illness. EENT: Denies eye, ear, throat, or mouth pain or symptoms. Denies nasal or sinus congestion or discharge. Denies throat, tongue, or mouth swelling or difficulty swallowing. CARDIOVASCULAR: Denies chest pain. Denies palpitations or racing or irregular heart beat. Denies ankle edema. RESPIRATORY: Denies cough, cold, or chest congestion. Denies shortness of breath, difficulty breathing, or wheezing. GASTROINTESTINAL: Denies distention. Denies nausea, vomiting, or diarrhea. Denies blood in vomitus, stools, or per rectum. Denies black, tarry stools. Denies constipation. GENITOURINARY: Denies difficulty urinating, painful urination, burning, frequency, blood in urine, or discharge. FEMALE GENITOURINARY: Denies vaginal bleeding, heavy or abnormal periods, irregular periods. Denies vaginal discharge or odor. MUSCULOSKELETAL: Denies back or neck pain or stiffness. Denies joint pain or swelling. SKIN: Denies rash, lesions or sores. HEMATOLOGIC : Denies easy bruising or bleeding. LYMPHATIC: Denies swollen, enlarged glands. NEUROLOGICAL: Denies confusion or altered mental status. Denies passing out or loss of consciousness. Denies dizziness or lightheadedness. Denies headache. Denies weakness or paralysis or loss of use of either side. Denies problems with gait or speech. Denies sensory loss, numbness, or tingling. Denies seizures. PSYCHIATRIC: Denies anxiety or stress. Denies depression, suicidal ideation, or homicidal ideation. ALL OTHER SYSTEMS REVIEWED AND NEGATIVE. PHYSICAL EXAMINATION: GENERAL: Well-appearing, well-nourished and in no acute distress. Morbidly obese HEAD: Atraumatic, normocephalic. EYES: Pupils equal round and reactive to light, extraocular movements intact, conjunctiva are normal. ENT: Nares patent, oropharynx clear without exudates. Moist mucous membranes. NECK: Normal range of motion, supple without lymphadenopathy LUNGS: Breath sounds clear to auscultation bilaterally and equal. No wheezes rales or rhonchi. HEART: Regular rate and rhythm without murmurs ABDOMEN: Soft, nontender, nondistended abdomen. No guarding, no rebound. No masses appreciated. Examination of genitals-deferred Musculoskeletal: Normal range of motion, left foot shows diffuse swelling, no pitting edema, left first metatarsal tarsal phalangeal joint region is erythematous and warm and tender to touch. NEUROLOGICAL: Cranial nerves gross PSYCH: Normal mood, normal affect. SKIN: Warm, Dry, normal turgor, no rashes or lesions noted. Dictation was performed using [employer] voice recognition software TRAVEL OUTSIDE OF THE [place] IN LAST 30 DAYS: No - HPI Notes: Dictated - Related Data Allergies/Adverse Reactions: No Known Allergies Allergy (Verified 11/08/17 14:14) Past Medical History - Social History Smoking Status: Never Smoker Frequency of alcohol use: None Drug Abuse: None Family History: Reviewed & Not Pertinent, CAD, DM Patient has suicidal ideation: No Patient has homicidal ideation: No - Past Medical History Cardiac Medical History: Reports: Hx Coronary Artery Disease, Hx Heart Attack, Hx Hypercholesterolemia, Hx Hypertension Pulmonary Medical History: Reports: Hx Asthma - IN PAST, Hx Sleep Apnea - cpap did not help Denies: Hx Bronchitis, Hx COPD, Hx Pneumonia, Hx Tuberculosis Neurological Medical History: Reports: Hx Cerebrovascular Accident - R SIDE WEAKNESS. Denies: Hx Seizures Endocrine Medical History: Reports: Hx Diabetes Mellitus Type 2 Renal/ Medical History: Denies: Hx Peritoneal Dialysis GI Medical History: Reports: Hx Gastroesophageal Reflux Disease - rarely. Denies: Hx Hepatitis, Hx Hiatal Hernia, Hx Ulcer Musculoskeletal Medical History: Reports Hx Arthritis - GENERALIZED Psychiatric Medical History: Denies: Hx Depression Traumatic Medical History: Reports: Hx Fractures - right gallegos Infectious Medical History: Denies: Hx Hepatitis Past Surgical History: Reports: Hx Appendectomy, Hx Cardiac Catheterization - Stent placed, Hx Cholecystectomy, Hx Coronary Artery Bypass Graft - 5 vessels, Hx Open Heart Surgery - STENT bypass. Denies: Hx Pacemaker - Immunizations Hx Diphtheria, Pertussis, Tetanus Vaccination: No Hx Pneumococcal Vaccination: 12/22/16 Review of Systems - Review of Systems Notes: Dictated Physical Exam - Vital signs Vitals: Temp Pulse Resp BP Pulse Ox 98.4 F 85 20 126/53 H 93 11/08/17 14:11/08/17 14:11/08/17 14:11/08/17 14:11/08/17 14:17 - Notes Notes: Dictated Course - Vital Signs Vital signs: Temp Pulse Resp BP Pulse Ox 98.4 F 85 20 126/53 H 93 11/08/17 14:11/08/17 14:11/08/17 14:11/08/17 14:11/08/17 14:17 - Laboratory Result Diagrams: 11/08/17 16:00 11/08/17 16:00 Laboratory results interpreted by me: 11/08/17 11/08/17 16:00 16:00 WBC 12.6 H RBC 4.08 L Hgb 12.7 L Hct 35.9 L RDW 14.5 H Absolute Neutrophils 9.6 H Sodium 135.5 L BUN 22 H Creatinine 1.41 H Est GFR (Non-Af Amer) 50 L Glucose 270 H Uric Acid 11.3 H Direct Bilirubin 0.6 H AST 83 H - Diagnostic Test Radiology reviewed: Reports reviewed - Left foot x-ray shows no fracture according to the radiologist Abdominal series showed large amount of fecal material otherwise normal reported by radiologist- Discharge - Discharge Clinical Impression: Renal insufficiency Gout involving toe of left foot Qualifiers: Gout etiology: other secondary cause Chronicity: acute Qualified Code(s): M10.472 - Other secondary gout, left ankle and foot Retained feces Qualifiers: Constipation type: slow transit constipation Qualified Code(s): K59.01 - Slow transit constipation Condition: Fair Disposition: HOME, SELF-CARE Instructions: Constipation ([facility]), Gout ([facility]) Prescriptions: Colchicine [Colchicine 0.6 mg Tablet] 0.6 mg PO DAILY #10 tablet Hydrocodone/Acetaminophen [Hydrocodon-Acetaminophen 5-325] 1 each PO TID #14 tablet Lactulose 20 gm PO BID #120 ml Referrals: THOMAS PELAEZ MD [Primary Care Provider] - Follow up as needed
[2017-11-08 17:14] LABS: ABSOLUTE BASOPHILS # (AUTO) 0.1 10^3/uL (0.0-0.2); ABSOLUTE LYMPHOCYTES (AUTO) 1.7 10^3/uL (0.5-4.7); ABSOLUTE MONOCYTES (AUTO) 1.1 10^3/uL (0.1-1.4); ABSOLUTE NEUT (AUTO) 9.6 10^3/uL (1.7-8.2); BASOPHILS % (AUTO) 0.6 % (0-2); EOSINOPHILS % (AUTO) 0.4 % (0-6); HEMATOCRIT 35.9 % (37.9-51.0); HEMOGLOBIN 12.7 g/dL (13.5-17.0); LYMPHOCYTES % (AUTO) 13.7 % (13-45); MEAN CORPUSCULAR HGB CONC 35.3 g/dL (32.0-36.0); MEAN CORPUSCULAR VOLUME 88 fl (80-97); MONOCYTES % (AUTO) 8.8 % (3-13); PLATELET COUNT 234 10^3/uL (150-450); RED BLOOD COUNT 4.08 10^6/uL (4.35-5.55); RED CELL DISTRIBUTION WIDTH 14.5 % (11.5-14.0); SEGMENTED NEUTROPHILS % (AUTO) 76.5 % (42-78); TOTAL CELLS COUNTED % (AUTO) 100 %; WHITE BLOOD COUNT 12.6 10^3/uL (4.0-10.5)
[2017-11-08 17:29] LABS: BLOOD UREA NITROGEN 22 mg/dL (7-20); CALCIUM 8.9 mg/dL (8.4-10.2); CARBON DIOXIDE 25 mmol/L (22-30); CHLORIDE 100 mmol/L (98-107); GLUCOSE 270 mg/dL (75-110); POTASSIUM 4.7 mmol/L (3.6-5.0); SODIUM 135.5 mmol/L (137-145)
[2017-11-08 17:30] LABS: ALANINE AMINOTRANSFERASE 48 U/L (21-72); ALKALINE PHOSPHATASE 47 U/L (38-126); ANION GAP 11 (5-19); ASPARTATE AMINO TRANSFERASE 83 U/L (17-59); BILIRUBIN,DIRECT 0.6 mg/dL (0.0-0.4); BILIRUBIN,TOTAL 1.3 mg/dL (0.2-1.3); TOTAL PROTEIN 7.6 g/dL (6.3-8.2); URIC ACID 11.3 mg/dL (3.5-8.5)
--- NOTE | 2017-11-08 17:35 | RADIOLOGY REPORT (SQ) ---
EXAM DESCRIPTION: FOOT LEFT COMPLETE COMPLETED DATE/TIME: 11/08/2017 5:26 pm REASON FOR STUDY: Pain and injury COMPARISON: None. NUMBER OF VIEWS: Three views. TECHNIQUE: AP, lateral and oblique radiographic images acquired of the left foot. LIMITATIONS: None. FINDINGS: MINERALIZATION: Normal. BONES: No fracture or dislocation. Large dorsal and plantar calcaneal spurs. JOINTS: No effusions. SOFT TISSUES: Soft tissue swelling. OTHER: No other significant finding. IMPRESSION: Soft tissue swelling with no fracture. Calcaneal spurs. TECHNICAL DOCUMENTATION: JOB ID: [id number] [employer]- All Rights Reserved Reading location - IP/workstation name: [email or web address]
--- NOTE | 2017-11-08 17:40 | RADIOLOGY REPORT (SQ) ---
EXAM DESCRIPTION: ACUTE ABDOMEN SERIES COMPLETED DATE/TIME: 11/08/2017 5:26 pm REASON FOR STUDY: Abdominal pain COMPARISON: None. NUMBER OF VIEWS: Three views. TECHNIQUE: Frontal chest, supine abdomen and upright/decubitus abdomen radiographic images acquired. LIMITATIONS: None. FINDINGS: CHEST: Lungs clear of infiltrates. FREE AIR: None. No abnormal gas collections. BOWEL GAS PATTERN: Nonobstructive pattern. No dilated loops or air fluid levels. CALCIFICATIONS: No suspicious calcifications. HARDWARE: None in the abdomen. SOFT TISSUES: No gross mass or suggestion of organomegaly. BONES: No acute fracture. No worrisome bone lesions. OTHER: No other significant finding. IMPRESSION: NO RADIOGRAPHIC EVIDENCE FOR ACUTE ABDOMINAL DISEASE. TECHNICAL DOCUMENTATION: JOB ID: [id number] [employer]- All Rights Reserved Reading location - IP/workstation name: [email or web address]
[2017-11-08 18:03] VITALS: BP 132/60
== END 2017-11-08 18:03 | disposition home or self-care (01) ==
LOC: ER 14:12
DX: N28.9 Disorder of kidney and ureter, unspecified (principal); M10.472 Other secondary gout, left ankle and foot; K59.01 Slow transit constipation; I25.10 Atherosclerotic heart disease of native coronary artery without angina pectoris; E11.9 Type 2 diabetes mellitus without complications; I10 Essential (primary) hypertension; J45.909 Unspecified asthma, uncomplicated; E66.01 Morbid (severe) obesity due to excess calories; Z68.41 Body mass index [BMI] 40.0-44.9, adult; Z95.1 Presence of aortocoronary bypass graft; Z95.5 Presence of coronary angioplasty implant and graft
CPT/HCPCS: 36415; 74022; 80053; 84550; 85025; 99283

== ENCOUNTER 2017-12-23 16:29 | Inpatient (IN) | payer MEDICARE, OTHER ==
[2017-12-23] MEDS ORDERED: IPRATROPIUM/ALBUTEROL 0.5-2.5 MG/3 ML AMPUL NEB ONE ×2 (16:41→17:18)
[2017-12-23] MEDS ORDERED: METHYLPREDNISOLONE INJ 125 MG/2 ML SDV IV ONE (16:42)
--- NOTE | 2017-12-23 16:46 | ER Document Report ---
ED Medical Screen (RME) - General Chief Complaint: Shortness Of Breath Stated Complaint: SHORTNESS OF BREATH Time Seen by Provider: 12/23/17 16:39 Mode of Arrival: Ambulatory Information source: Patient Notes: 67-year-old male presents to the emergency department with complaints of an asthma exacerbation. Tried his proair inhaler without relief of symptoms. Wheezing is worsening. Patient's been having associated sore throat and a productive cough. He is not on any oxygen at home. He is not on any nebulizer treatments. Patient denies chest pain, fever, chills. I have greeted and performed a rapid initial assessment of this patient. A comprehensive ED assessment and evaluation of the patient, analysis of test results and completion of the medical decision making process will be conducted by additional ED providers. PHYSICAL EXAMINATION: GENERAL: Well-appearing, well-nourished and in no acute distress. HEAD: Atraumatic, normocephalic. EYES: Pupils equal round extraocular movements intact, conjunctiva are normal. ENT: Nares patent NECK: Normal range of motion LUNGS: Diffuse wheezing Musculoskeletal: Normal range of motion NEUROLOGICAL: Normal speech, normal gait. PSYCH: Normal mood, normal affect. SKIN: Warm, Dry, normal turgor, no rashes or lesions noted. TRAVEL OUTSIDE OF THE [place] IN LAST 30 DAYS: No - Related Data Allergies/Adverse Reactions: No Known Allergies Allergy (Verified 12/23/17 16:31) Past Medical History - Past Medical History Cardiac Medical History: Reports: Hx Coronary Artery Disease, Hx Heart Attack, Hx Hypercholesterolemia, Hx Hypertension Pulmonary Medical History: Reports: Hx Asthma - IN PAST, Hx Sleep Apnea - cpap did not help Denies: Hx Bronchitis, Hx COPD, Hx Pneumonia, Hx Tuberculosis Neurological Medical History: Reports: Hx Cerebrovascular Accident - R SIDE WEAKNESS. Denies: Hx Seizures Endocrine Medical History: Reports: Hx Diabetes Mellitus Type 2 Renal/ Medical History: Denies: Hx Peritoneal Dialysis GI Medical History: Reports: Hx Gastroesophageal Reflux Disease - rarely. Denies: Hx Hepatitis, Hx Hiatal Hernia, Hx Ulcer Musculoskeltal Medical History: Reports Hx Arthritis - GENERALIZED Psychiatric Medical History: Denies: Hx Depression Traumatic Medical History: Reports: Hx Fractures - right gallegos Infectious Medical History: Denies: Hx Hepatitis Past Surgical History: Reports: Hx Appendectomy, Hx Cardiac Catheterization - Stent placed, Hx Cholecystectomy, Hx Coronary Artery Bypass Graft - 5 vessels, Hx Open Heart Surgery - STENT bypass. Denies: Hx Pacemaker - Immunizations Hx Diphtheria, Pertussis, Tetanus Vaccination: No Influenza Administration Date for 11/2016 - 04/2017 Season: 12/22/16 Physical Exam - Vital signs Vitals: Temp Pulse Resp BP Pulse Ox 98.7 F 89 16 153/66 H 95 12/23/17 16:34 12/23/17 16:34 12/23/17 16:34 12/23/17 16:34 12/23/17 16:34 Course - Vital Signs Vital signs: Temp Pulse Resp BP Pulse Ox 98.7 F 89 16 153/66 H 95 12/23/17 16:34 12/23/17 16:34 12/23/17 16:34 12/23/17 16:34 12/23/17 16:34 Doctor's Discharge - Discharge Referrals: THOMAS PELAEZ MD [Primary Care Provider] - Follow up as needed
[2017-12-23] MEDS ORDERED: METHYLPREDNISOLONE INJ 125 MG/2 ML SDV IM ONE (17:04)
[2017-12-23 17:52] LABS: A TYPE INFLUENZA AG NEGATIVE (NEGATIVE); B INFLUENZA AG NEGATIVE (NEGATIVE)
--- NOTE | 2017-12-23 17:57 | ER Document Report ---
ED Respiratory Problem - General Chief Complaint: Shortness Of Breath Stated Complaint: SHORTNESS OF BREATH Time Seen by Provider: 12/23/17 16:39 Mode of Arrival: Ambulatory Information source: Patient, Relative, [facility], [facility] Records Notes: 67-year-old male patient comes emergency room complaining of shortness of breath for the past 3 days. It is been getting progressively worse. His inhalers are not helping now. There has been some nonproductive cough. He thinks it may have been a little bit of fever. He does have asthma, but no history of COPD. He does have obstructive sleep apnea, he is morbidly obese. He does have coronary artery disease. According to his spouse, he has had audible wheezes for the last 3 days. The patient reports that he rarely ever needs to use his inhalers, but has been using them quite a bit in the last 3 days. TRAVEL OUTSIDE OF THE [place] IN LAST 30 DAYS: No - Related Data Allergies/Adverse Reactions: No Known Allergies Allergy (Verified 12/23/17 16:31) Past Medical History - General Information source: Patient - Social History Smoking Status: Never Smoker Cigarette use (# per day): No Chew tobacco use (# tins/day): No Smoking Education Provided: No Frequency of alcohol use: None Drug Abuse: None Occupation: Retired Lives with: Spouse/Significant other Family History: Reviewed & Not Pertinent, CAD, DM Patient has suicidal ideation: No Patient has homicidal ideation: No - Past Medical History Cardiac Medical History: Reports: Hx Coronary Artery Disease, Hx Heart Attack, Hx Hypercholesterolemia, Hx Hypertension Pulmonary Medical History: Reports: Hx Asthma, Hx Sleep Apnea - cpap did not help Neurological Medical History: Reports: Hx Cerebrovascular Accident - R SIDE WEAKNESS. Denies: Hx Seizures Endocrine Medical History: Reports: Hx Diabetes Mellitus Type 2 Renal/ Medical History: Reports: None GI Medical History: Reports: Hx Gastroesophageal Reflux Disease Musculoskeletal Medical History: Reports Hx Arthritis - GENERALIZED Skin Medical History: Reports Hx Cellulitis - Lower extremity cellulitis due to chronic edema Psychiatric Medical History: Reports: None Traumatic Medical History: Reports: Hx Fractures - Right tibia Infectious Medical History: Reports: None Past Surgical History: Reports: Hx Appendectomy, Hx Cardiac Catheterization, Hx Cholecystectomy, Hx Coronary Artery Bypass Graft - 5 vessels, Hx Coronary Stent - Immunizations Hx Diphtheria, Pertussis, Tetanus Vaccination: No Hx Pneumococcal Vaccination: 12/22/16 Review of Systems - Review of Systems Constitutional: No symptoms reported EENT: Other - Bilateral hearing loss, 80% on the right and 20% on the left Cardiovascular: No symptoms reported, Edema Respiratory: See HPI, Cough, Short of breath, Wheezing. denies: Sputum Gastrointestinal: No symptoms reported Genitourinary: No symptoms reported Musculoskeletal: Joint pain Skin: No symptoms reported Hematologic/Lymphatic: No symptoms reported Neurological/Psychological: Weakness - Right-sided weakness from prior CVA Physical Exam - Vital signs Vitals: Temp Pulse Resp BP Pulse Ox 98.7 F 89 16 153/66 H 95 12/23/17 16:34 12/23/17 16:34 12/23/17 16:34 12/23/17 16:34 12/23/17 16:34 Interpretation: Tachypneic - Room air pulse ox is 98% - General General appearance: Alert In distress: Mild - HEENT Head: Normocephalic, Atraumatic Eyes: Normal Pupils: PERRL Neck: Normal - Respiratory Respiratory status: Respiratory distress, Labored, Retractions, Tachypnea Breath sounds: Nonproductive cough, Rhonchi, Wheezing - Cardiovascular Rhythm: Regular Heart sounds: Normal auscultation Murmur: No - Abdominal Inspection: Morbidly Obese Bowel sounds: Normal Tenderness: Nontender - Extremities General upper extremity: Normal inspection General lower extremity: Edema, Other - Chronic skin thickening - Neurological Neuro grossly intact: Yes - Except for some right sided weakness - Psychological Associated symptoms: Normal affect, Normal mood - Skin Skin Temperature: Warm Skin Moisture: Dry Skin Color: Normal Course - Re-evaluation Re-evalutation: 12/23/17 19:18 At this time the patient is much more relaxed, he states his breathing feels much better. He still does have a wheezes with some air trapping. He is not tachypneic any longer. His pulse ox is now down to 88% on room air, while it was running 98% when he was first seen due to how rapid and hard he was breathing. - Vital Signs Vital signs: Temp Pulse Resp BP Pulse Ox 98.7 F 89 16 153/66 H 95 12/23/17 16:34 12/23/17 16:34 12/23/17 16:34 12/23/17 16:34 12/23/17 16:34 - Laboratory Result Diagrams: 12/23/17 18:14 12/23/17 18:14 Laboratory results interpreted by me: 12/23/17 12/23/17 18:14 18:14 RBC 4.00 L Hgb 12.2 L Hct 34.9 L RDW 14.4 H Eosinophils % 6.3 H BUN 28 H Creatinine 1.46 H Est GFR ( Amer) 58 L Est GFR (Non-Af Amer) 48 L Glucose 219 H ALT 16 L - Diagnostic Test Radiology reviewed: Image reviewed, Reports reviewed - Mild increased visual changes compared to a film from 6 years ago. Does not appear to be any acute process. - EKG Interpretation by Me EKG shows normal: Sinus rhythm, Appling, Intervals, QRS Complexes, ST-T Waves Rate: Normal - 84 Rhythm: NSR Appling/QRS: RBBB - Incomplete right bundle branch block, IVCD Voltage: Consistant with LVH - Consults Dr. Felton Time consulted: 19:30 Consulted provider: will come to ER - Transfer of Care Care transferred to following provider: Dr. De Jesus Notes: 12/23/17 19:43 Patient care turned over to Dr. De Jesus pending arrival and evaluation by the hospitalist for possible admission. Critical Care Note - Critical Care Note Total time excluding time spent on procedures (mins): 40 Discharge - Discharge Clinical Impression: Acute exacerbation of extrinsic asthma Diabetes Qualifiers: Diabetes mellitus type: type 2 Diabetes mellitus halfway insulin use: with meterman use Diabetes mellitus complication status: with skin complications Diabetes mellitus complication detail: with other skin complication Qualified Code(s): E11.628 - Type 2 diabetes mellitus with other skin complications Condition: Stable Referrals: THOMAS PELAEZ MD [Primary Care Provider] - Follow up as needed
[2017-12-23] MEDS: MAGNESIUM SULFATE/D5W 1 GM/100 ML RTUPB IV SCH ×2 (18:22→18:53)
--- NOTE | 2017-12-23 18:28 | RADIOLOGY REPORT (SQ) ---
EXAM DESCRIPTION: CHEST 2 VIEWS COMPLETED DATE/TIME: 12/23/2017 5:45 pm REASON FOR STUDY: wheezing COMPARISON: 08/23/2011 NUMBER OF VIEWS: Two view. TECHNIQUE: Frontal and lateral radiographic views of the chest acquired. LIMITATIONS: None. FINDINGS: LUNGS AND PLEURA: Mild increased interstitial changes. No consolidation, effusion, or pne umothorax. MEDIASTINUM AND HILAR STRUCTURES: Stable. HEART AND VASCULAR STRUCTURES: Stable. BONES: No acute findings. HARDWARE: CABG. OTHER: No other significant finding. IMPRESSION: Mild increased interstitial changes compared with the 2012 exam. No consolidation or pl eural effusion. TECHNICAL DOCUMENTATION: JOB ID: [id number] [id number] 2010 [employer]- All Rights Reserved Reading location - IP/workstation name: [email or web address]
[2017-12-23] MEDS ORDERED: ALBUTEROL SULFATE 0.083% NEB 2.5 MG/3 ML AMPUL NEB ONE (18:32)
[2017-12-23 18:36] LABS: ABSOLUTE EOSINOPHILS # (AUTO) 0.3 10^3/uL (0.0-0.6); ABSOLUTE LYMPHOCYTES (AUTO) 1.8 10^3/uL (0.5-4.7); ABSOLUTE MONOCYTES (AUTO) 0.7 10^3/uL (0.1-1.4); ABSOLUTE NEUT (AUTO) 2.7 10^3/uL (1.7-8.2); BASOPHILS % (AUTO) 0.2 % (0-2); EOSINOPHILS % (AUTO) 6.3 % (0-6); HEMATOCRIT 34.9 % (37.9-51.0); HEMOGLOBIN 12.2 g/dL (13.5-17.0); LYMPHOCYTES % (AUTO) 32.7 % (13-45); MEAN CORPUSCULAR HEMOGLOBIN 30.6 pg (27.0-33.4); MEAN CORPUSCULAR HGB CONC 35.1 g/dL (32.0-36.0); MEAN CORPUSCULAR VOLUME 87 fl (80-97); MONOCYTES % (AUTO) 11.7 % (3-13); PLATELET COUNT 171 10^3/uL (150-450); RED CELL DISTRIBUTION WIDTH 14.4 % (11.5-14.0); SEGMENTED NEUTROPHILS % (AUTO) 49.1 % (42-78); TOTAL CELLS COUNTED % (AUTO) 100 %; WHITE BLOOD COUNT 5.6 10^3/uL (4.0-10.5)
[2017-12-23 18:50] LABS: ALANINE AMINOTRANSFERASE 16 U/L (21-72); ALBUMIN 3.8 g/dL (3.5-5.0); ALKALINE PHOSPHATASE 51 U/L (38-126); ANION GAP 14 (5-19); ASPARTATE AMINO TRANSFERASE 24 U/L (17-59); BILIRUBIN,DIRECT 0.1 mg/dL (0.0-0.4); BILIRUBIN,TOTAL 0.3 mg/dL (0.2-1.3); BLOOD UREA NITROGEN 28 mg/dL (7-20); CALCIUM 8.6 mg/dL (8.4-10.2); CARBON DIOXIDE 29 mmol/L (22-30); CHLORIDE 98 mmol/L (98-107); CREATINE KINASE 73 U/L (55-170); GLUCOSE 219 mg/dL (75-110); POTASSIUM 3.9 mmol/L (3.6-5.0); SODIUM 141.1 mmol/L (137-145); TOTAL PROTEIN 6.7 g/dL (6.3-8.2)
[2017-12-23 18:59] LABS: CREATINE KINASE MB 1.47 ng/mL (<4.55); TROPONIN I 0.019 ng/mL
[2017-12-23] MEDS ORDERED: PROMETHAZINE HCL INJ 25 MG/1 ML VIAL IV PRN (20:27)
[2017-12-23] MEDS ORDERED: LEVALBUTEROL HCL NEB 1.25 MG/3 ML AMPUL NEB PRN (20:27)
[2017-12-23] MEDS ORDERED: ACETAMINOPHEN 325 MG TABLET PO PRN (20:27)
[2017-12-23] MEDS ORDERED: PROMETHAZINE HCL 25 MG TABLET PO PRN (20:27)
[2017-12-23] MEDS ORDERED: MAG HYDROX/AL HYDROX/SIMETH SUSP 30 ML UDCUP PO PRN (20:27)
--- NOTE | 2017-12-23 21:49 | PDOC H&P ---
History of Present Illness Admission Date/PCP: 12/23/17 21:08 THOMAS PELAEZ MD Patient complains of: Shortness of breath History of Present Illness: RUSSELL PARRA is a 67 year old male with multiple medical conditions that I will outline below. is at the bedside. Patient tells me that his symptoms started 3 days ago with progressive shortness of breath associated with persistent nonproductive cough, wheezing, denies pleuritic chest pain, fever, chills, nausea, vomiting. Tells me that he has bronchial asthma but his last exacerbation was about 4 years ago, has been using his albuterol inhaler at home for the last 2 days unsuccessfully. tells me that he has been having some cold like symptoms the last few days. Patient is non-smoker. In the emergency department the patient noted with acute respiratory distress, tachypneic and retraction as per ED attending notes In the emergency department given IV magnesium, IV Solu-Medrol, several nebulizer treatments, patient was placed on oxygen via nasal cannula at 2 L but the patient is still moderately wheezing and that desaturating to 88% on room air. Initially patient declined to stay in the hospital and was adamant that he wants to go home, convinced him to stay. Chest x-ray negative for acute infiltrates. Past Medical History Cardiac Medical History: Reports: Coronary Artery Disease, Myocardial Infarction , Hyperlipidema, Hypertension Pulmonary Medical History: Reports: Asthma, Sleep Apnea - cpap did not help Denies: Bronchitis, Chronic Obstructive Pulmonary Disease (COPD), Pneumonia, Tuberculosis Neurological Medical History: Denies: Seizures Endocrine Medical History: Reports: Diabetes Mellitus Type 2 Renal/ Medical History: Reports: None GI Medical History: Reports: Gastroesophageal Reflux Disease Denies: Hepatitis, Hiatal Hernia Musculoskeltal Medical History: Reports: Arthritis - GENERALIZED Psychiatric Medical History: Reports: None Denies: Depression Hematology: Denies: Anemia, Sickle Cell Disease Infectious Medical History: Reports: None Past Surgical History Past Surgical History: Reports: Appendectomy, Cardiac Catheterization, Cholecystectomy, Coronary Artery Bypass Graft - 5 vessels, Coronary Stent Denies: Pacemaker Social History Lives with: Spouse/Significant other Smoking Status: Never Smoker Frequency of Alcohol Use: None Hx Recreational Drug Use: No Drugs: None Hx Prescription Drug Abuse: No Family History Family History: Reviewed & Not Pertinent, CAD, DM Parental Family History Reviewed: Yes - As above Children Family History Reviewed: NA Sibling(s) Family History Reviewed.: NA Medication/Allergy Home Medications: Aspirin [Adult Low Dose Aspirin EC] 81 mg PO DAILY 10/05/17 Clopidogrel Bisulfate [Plavix 75 mg Tablet] 75 mg PO DAILY 10/05/17 Furosemide [Lasix 40 mg Tablet] 60 mg PO QAM 10/05/17 Insulin Degludec [Tresiba Flextouch U-200] 80 units SQ QHS 10/05/17 Lisinopril [Zestril] 20 mg PO DAILY 10/05/17 Metformin HCl [Glucophage XR 500 mg Tablet] 500 mg PO WSUPPER 10/05/17 Metoprolol Succinate [Toprol XL 100 mg Tablet] 100 mg PO DAILY 10/05/17 Colchicine [Colchicine 0.6 mg Tablet] 0.6 mg PO DAILY #10 tablet 11/08/17 Carbamazepine [Carbamazepine ER] 200 mg PO Q12 12/23/17 Gabapentin [Neurontin 300 mg Capsule] 300 mg PO Q8 12/23/17 Insulin Aspart [Novolog Flexpen] 0 unit SUBCUT .SLDING SCALE 12/23/17 Potassium Chloride [Klor-Con 10 Meq Capsule ER] 20 meq PO DAILY 12/23/17 Simvastatin [Zocor 40 mg Tablet] 40 mg PO QHS 12/23/17 Allergies/Adverse Reactions: No Known Allergies Allergy (Verified 12/23/17 16:31) Review of Systems Review of Systems: As outlined in the HPI, others negative Physical Exam Vital Signs: Temp Pulse Resp BP Pulse Ox 98.7 F 89 16 153/66 H 95 12/23/17 16:34 12/23/17 16:34 12/23/17 16:34 12/23/17 16:34 12/23/17 16:34 Additional comments: General appearance: Well-developed, morbidly obese, alert and cooperative, and appears to be in no acute distress, wearing nasal cannula Head: Normocephalic Eyes: PEERL, EOMI, vision is grossly intact. Ears: External auditory canal and tympanic membranes clear, hearing grossly intact. Nose: No nasal discharge. Throat: Oral cavity and pharynx normal. No inflammation, swelling, exudate or lesions. Neck: Neck supple, nontender without lymphadenopathy, masses or thyromegaly. Cardiac: Normal S1 and S2. No S3, S4 or murmurs. Rhythm is regular. There is no peripheral edema, cyanosis or pallor. Extremities are warm and well perfused. Capillary refill is less than 2 seconds. No carotid bruits. Lungs: Bilateral decreased breath sounds, with moderate to severe. 30 wheezing that I can hear without a stethoscope, mild diffuse crackles, do not appreciate rhonchi. Not using accessory muscles. Abdomen: Positive bowel sounds. Soft. Nondistended, nontender. No guarding or rebound. No masses. Unable to evaluate hepatosplenomegaly due to body habitus Extremities: No significant deformity or joint abnormality. No edema. Peripheral pulses intact. No varicosities. Neurological: Cranial nerves II through XII grossly intact. Strength and sensation symmetric and intact throughout. Reflexes 2+ throughout. Skin: Skin normal color, texture and turgor with no lesions or eruptions, warm and dry. Psychiatric: The mental examination revealed the patient was oriented to person , place, and time. The patient was able to demonstrate good judgment on recent , without hallucinations, abnormal affect or abnormal behaviors. Results Laboratory Results: 12/23/17 12/23/17 12/23/17 17:15 18:14 18:14 WBC 5.6 RBC 4.00 L Hgb 12.2 L Hct 34.9 L MCV 87 MCH 30.6 MCHC 35.1 RDW 14.4 H Plt Count 171 Seg Neutrophils % 49.1 Lymphocytes % 32.7 Monocytes % 11.7 Eosinophils % 6.3 H Basophils % 0.2 Absolute Neutrophils 2.7 Absolute Lymphocytes 1.8 Absolute Monocytes 0.7 Absolute Eosinophils 0.3 Absolute Basophils 0.0 Sodium 141.1 Potassium 3.9 Chloride 98 Carbon Dioxide 29 Anion Gap 14 BUN 28 H Creatinine 1.46 H Est GFR ( Amer) 58 L Est GFR (Non-Af Amer) 48 L Glucose 219 H Calcium 8.6 Total Bilirubin 0.3 Direct Bilirubin 0.1 AST 24 ALT 16 L Alkaline Phosphatase 51 Creatine Kinase 73 CK-MB (CK-2) Troponin I Total Protein 6.7 Albumin 3.8 Carbamazepine Influenza A (Rapid) NEGATIVE Influenza B (Rapid) NEGATIVE 12/23/17 12/23/17 18:14 18:14 WBC RBC Hgb Hct MCV MCH MCHC RDW Plt Count Seg Neutrophils % Lymphocytes % Monocytes % Eosinophils % Basophils % Absolute Neutrophils Absolute Lymphocytes Absolute Monocytes Absolute Eosinophils Absolute Basophils Sodium Potassium Chloride Carbon Dioxide Anion Gap BUN Creatinine Est GFR ( Amer) Est GFR (Non-Af Amer) Glucose Calcium Total Bilirubin Direct Bilirubin AST ALT Alkaline Phosphatase Creatine Kinase CK-MB (CK-2) 1.47 Troponin I 0.019 Total Protein Albumin Carbamazepine 7.6 Influenza A (Rapid) Influenza B (Rapid) EKG Comments: Sinus rhythm with a rate of 84 bpm, incomplete RBBB, IVCD, LVH, no acute ST elevations or ST depressions. Impressions: Chest X-Ray 12/23/17 16:42 IMPRESSION: Mild increased interstitial changes compared with the 2012 exam. No consolidation or pleural effusion. Assessment & Plan - Diagnosis (1) Acute exacerbation of extrinsic asthma Is this a current diagnosis for this admission?: Yes Plan: Patient has been having cold like his symptoms during the last few days, probably this trigger his current episode of asthma exacerbation. Several medications given in the ED which partially relieved his symptoms but still with moderate and severe wheezing with mild hypoxia with an oxygen saturation of 88% of room air. We will give the patient under telemetry monitoring with oxygen protocol via nasal cannula. IV steroids. RT consult. Nebulizer treatments as needed. Incentive spirometry. (2) Diabetes mellitus type 2 in obese Is this a current diagnosis for this admission?: Yes Plan: We will resume his home insulin aspart and glargine. Accu-Cheks q. before meals and at bedtime, insulin lispro sliding scale and hypoglycemia protocol. (3) Hypertension Qualifiers: Hypertension type: essential hypertension Qualified Code(s): I10 - Essential (primary) hypertension Is this a current diagnosis for this admission?: Yes Plan: We will resume his home antihypertensive medications. (4) GIANNI (obstructive sleep apnea) Is this a current diagnosis for this admission?: Yes Plan: Noncompliant with CPAP. (5) Coronary artery disease Is this a current diagnosis for this admission?: Yes Plan: Patient does not complain of any chest pain or other cardiac symptomatology. We will going to resume his home medications. Aspirin and Plavix. (6) Morbid obesity with BMI of 40.0-44.9, adult Is this a current diagnosis for this admission?: Yes Plan: Lifestyle modification, patient is not very receptive. (7) Chronic kidney disease, stage 3 Is this a current diagnosis for this admission?: Yes Plan: Seems to be stable. (8) DVT prophylaxis Is this a current diagnosis for this admission?: Yes Plan: Lovenox
[2017-12-23] MEDS ORDERED: INSULIN DEGLUDEC 80 UNIT SQ SCH (22:00)
[2017-12-23] MEDS ORDERED: (PENDING PHARMACY ID) (Carbamazepine [Carbamazepine Er] 200 MG) PO SCH (22:00)
[2017-12-23] MEDS: METHYLPREDNISOLONE INJ 125 MG/2 ML SDV IV SCH (22:08)
[2017-12-23] MEDS: CARBAMAZEPINE 100 MG TAB.SR.12H PO SCH (22:20)
[2017-12-23] MEDS: HEPARIN SOD (PORCINE) 5,000 UNIT/ML 1 ML SYRINGE SUBCUT SCH (22:21)
[2017-12-23] MEDS: GABAPENTIN 300 MG CAPSULE PO SCH (22:21)
[2017-12-23] MEDS: INSULIN GLARGINE,HUM.REC.ANLOG 1,000 UNIT/10 ML UNIT SUBCUT SCH (22:30)
[2017-12-23] MEDS: SIMVASTATIN 40 MG TABLET PO SCH (22:33)
[2017-12-23] MEDS: IPRATROPIUM/ALBUTEROL 0.5-2.5 MG/3 ML AMPUL NEB SCH (23:55)
[2017-12-24] MEDS: IPRATROPIUM/ALBUTEROL 0.5-2.5 MG/3 ML AMPUL NEB SCH ×2 (04:02→08:42)
[2017-12-24] MEDS: GABAPENTIN 300 MG CAPSULE PO SCH ×3 (06:17→22:23)
[2017-12-24] MEDS: METHYLPREDNISOLONE INJ 125 MG/2 ML SDV IV SCH ×3 (06:17→22:24)
[2017-12-24] MEDS: HEPARIN SOD (PORCINE) 5,000 UNIT/ML 1 ML SYRINGE SUBCUT SCH ×3 (06:17→22:23)
[2017-12-24 06:18] LABS: HEMATOCRIT 35.6 % (37.9-51.0); MEAN CORPUSCULAR HGB CONC 33.6 g/dL (32.0-36.0); MEAN CORPUSCULAR VOLUME 89 fl (80-97); PLATELET COUNT 179 10^3/uL (150-450); RED BLOOD COUNT 3.99 10^6/uL (4.35-5.55); RED CELL DISTRIBUTION WIDTH 14.5 % (11.5-14.0); WHITE BLOOD COUNT 6.6 10^3/uL (4.0-10.5)
[2017-12-24 06:38] LABS: ANION GAP 18 (5-19); BLOOD UREA NITROGEN 30 mg/dL (7-20); CALCIUM 9.1 mg/dL (8.4-10.2); CARBON DIOXIDE 22 mmol/L (22-30); CHLORIDE 100 mmol/L (98-107); PHOSPHORUS 3.3 mg/dL (2.5-4.5); POTASSIUM 4.8 mmol/L (3.6-5.0); SODIUM 139.6 mmol/L (137-145)
[2017-12-24 06:43] LABS: ARTERIAL BLOOD H2CO3 1.16 mmol/L (1.05-1.35); ARTERIAL BLOOD HCO3 22.7 mmol/L (20-24); ARTERIAL BLOOD O2 SATURATION 93.5 % (94-98); ARTERIAL BLOOD PCO2 38.7 mmHg (35-45); ARTERIAL BLOOD PH 7.39 (7.35-7.45); ARTERIAL BLOOD TOTAL CO2 23.9 mmol/L (23-27)
[2017-12-24 06:50] LABS: ARTERIAL BLOOD FIO2 ROOM AIR
[2017-12-24] MEDS ORDERED: DEXTROSE 50%-WATER 25 GM/50 ML DISP.SYRIN IV PRN ×2 (07:01)
[2017-12-24] MEDS ORDERED: DEXTROSE 40% GEL 15 GM TUBE PO PRN ×2 (07:01)
[2017-12-24] MEDS ORDERED: GLUCAGON,HUMAN RECOMB 1 MG INJ IM PRN (07:01)
[2017-12-24] MEDS ORDERED: INSULIN LISPRO 100 UNIT/ML 3 ML VIAL SUBCUT PRN (07:01)
[2017-12-24 07:19] LABS: GLUCOSE 444 mg/dL (75-110)
[2017-12-24] MEDS: METFORMIN HCL 500 MG TABLET PO SCH ×2 (07:37→17:30)
[2017-12-24] MEDS: FUROSEMIDE 40 MG TABLET PO SCH (07:37)
[2017-12-24] MEDS: POTASSIUM CHLORIDE 10 MEQ CAPSULE.ER PO SCH (09:47)
[2017-12-24] MEDS: COLCHICINE 0.6 MG TABLET PO SCH (09:48)
[2017-12-24] MEDS: CARBAMAZEPINE 100 MG TAB.SR.12H PO SCH ×2 (09:48→22:27)
[2017-12-24] MEDS: LISINOPRIL 10 MG TABLET PO SCH (09:48)
[2017-12-24] MEDS: METOPROLOL SUCCINATE 50 MG TAB.SR.24H PO SCH (09:48)
[2017-12-24] MEDS: ASPIRIN 81 MG TABLET, ENT COATED PO SCH (09:48)
[2017-12-24] MEDS: CLOPIDOGREL BISULFATE 75 MG TABLET PO SCH (09:48)
[2017-12-24] MEDS ORDERED: (PENDING PHARMACY ID) (Lisinopril [Zestril] 20 MG) PO SCH (10:00)
--- NOTE | 2017-12-24 10:21 | EKG REPORT ---
SEVERITY:- ABNORMAL ECG - SINUS RHYTHM INCOMPLETE RIGHT BUNDLE BRANCH BLOCK LVH WITH IVCD, LAD AND SECONDARY REPOL ABNRM : Confirmed by: Adali Winkler MD 24-Dec-2017 10:20:52
[2017-12-24] MEDS ORDERED: LEVALBUTEROL HCL NEB 1.25 MG/3 ML AMPUL NEB PRN (10:39)
[2017-12-24] MEDS ORDERED: BENZONATATE 100 MG CAPSULE PO PRN (10:40)
[2017-12-24] MEDS ORDERED: GUAIFENESIN 600 MG TABLET.SA PO ONE (10:40)
[2017-12-24] MEDS ORDERED: INSULIN LISPRO 100 UNIT/ML 3 ML VIAL ONE (12:11)
[2017-12-24] MEDS: LEVALBUTEROL HCL NEB 1.25 MG/3 ML AMPUL NEB SCH ×2 (14:21→20:38)
[2017-12-24] MEDS: INSULIN LISPRO 100 UNIT/ML 3 ML VIAL SUBCUT PRN ×2 (16:37→22:20)
[2017-12-24] MEDS ORDERED: (PENDING PHARMACY ID) (Metformin Hcl [Glucophage Xr 500 Mg Tablet] 500 MG) PO SCH (17:00)
--- NOTE | 2017-12-24 19:16 | PROGRESS NOTE E ---
Progress Note NAME: RUSSELL PARRA : 1950 AGE: 67Y DATE: 12/24/2017 ROOM: 425 SUBJECTIVE: The patient is out of bed to the bedside chair. He states he feels a little better in comparison to when he came in. Still wheezy, tight. His glucoses have been elevated which he attributes to steroids. States he is really sensitive to this. The patient denies any nausea, vomiting, diarrhea. No dizziness, chest pain. He has had a very strong cough but has not been able to produce any sputum. The patient does not voice any other concerns at this time. REVIEW OF SYSTEMS: The rest of the review of systems is negative. MEDICATION: Medications have been reviewed. OBJECTIVE: GENERAL: Patient is a 67-year-old male, who is awake, alert and oriented to person, place and situation. He is verbal and conversational. Does not appear to be in any acute distress. VITAL SIGNS: Temperature is 97.6, pulse 83, respirations 20, blood pressure is 144/73. Oxygen saturation is 92% on room air. SKIN: Warm and dry. No rash. Not diaphoretic. HEENT: Pupils equal, round, reactive to light and accommodation. Conjunctivae are pink. NECK: No JVP. CVS: Heart is regular. There is no murmur, rub. CHEST: The patient does have expiratory wheezes through both lung constantino. ABDOMEN: Obese, soft, nontender. EXTREMITIES: No clubbing, cyanosis. The patient does have chronic edema of the bilateral lower extremities. PSYCHIATRIC: Appropriate affect, pleasant mood. DIAGNOSTICS: Lab values are as follows: Hematology obtained on 12/24/2017: WBC is 6.6, hemoglobin is 12.0, hematocrit is 35.6, platelet count is 179,000. Chemistry obtained on 12/24/2017: Sodium is 139, potassium 2.8, chloride is 100, carbon dioxide is 22. BUN 30, creatinine is 1.4. Glucose 444, calcium is 9.1. Phosphorous is 3.3. IMPRESSION AND PLAN: 1. CHRONIC OBSTRUCTIVE PULMONARY DISEASE EXACERBATION. Will continue with steroids as well as supplemental O2 and nebulizers and continue to follow. Will add Singulair. 2. OBSTRUCTIVE SLEEP APNEA. Encourage CPAP use. 3. DIABETES MELLITUS TYPE 2 AND OBESE. Have resumed the patient's home insulin and continue sliding scale as well. The patient's glucose has been significantly elevated due to steroids. May require adjustment this evening. 4. HYPERTENSION. Continue home medications. 5. CORONARY ARTERY DISEASE. The patient denies any cardiac symptoms. 6. MORBID OBESITY WITH A BMI OF 44.9. Counseled. 7. CHRONIC KIDNEY DISEASE STAGE III. Overall stable. The patient's creatinine is at its baseline. 8. DVT PROPHYLAXIS. Will continue Lovenox. DISPOSITION: The patient is a FULL CODE. Pending the patient's symptomatology and diagnostic findings, will reevaluate in the a.m. Time spent on this followup including assessment, plan, physical examination, patient education, review of records is 25 minutes. DICTATING PHYSICIAN: THOMAS VELÁSQUEZ NP [id number] PHY#: [id number] ID: [id number] JOB#: [id number] ACCT: [id number] cc: >
[2017-12-24] MEDS ORDERED: BISACODYL 5 MG TABEC PO PRN (19:39)
[2017-12-24] MEDS ORDERED: MONTELUKAST SODIUM 10 MG TABLET PO SCH (22:00)
[2017-12-24] MEDS: SIMVASTATIN 40 MG TABLET PO SCH (22:23)
[2017-12-24] MEDS: GUAIFENESIN 600 MG TABLET.SA PO SCH (22:23)
[2017-12-24] MEDS: INSULIN GLARGINE,HUM.REC.ANLOG 1,000 UNIT/10 ML UNIT SUBCUT SCH (22:44)
[2017-12-25] MEDS: LEVALBUTEROL HCL NEB 1.25 MG/3 ML AMPUL NEB SCH ×2 (01:26→08:21)
[2017-12-25] MEDS: METHYLPREDNISOLONE INJ 125 MG/2 ML SDV IV SCH (05:27)
[2017-12-25] MEDS: HEPARIN SOD (PORCINE) 5,000 UNIT/ML 1 ML SYRINGE SUBCUT SCH (05:27)
[2017-12-25] MEDS: GABAPENTIN 300 MG CAPSULE PO SCH (05:28)
[2017-12-25] MEDS: COLCHICINE 0.6 MG TABLET PO SCH (09:13)
[2017-12-25] MEDS: CLOPIDOGREL BISULFATE 75 MG TABLET PO SCH (09:14)
[2017-12-25] MEDS: CARBAMAZEPINE 100 MG TAB.SR.12H PO SCH (09:14)
[2017-12-25] MEDS: METFORMIN HCL 500 MG TABLET PO SCH (09:14)
[2017-12-25] MEDS: ASPIRIN 81 MG TABLET, ENT COATED PO SCH (09:14)
[2017-12-25] MEDS: POTASSIUM CHLORIDE 10 MEQ CAPSULE.ER PO SCH (09:15)
[2017-12-25] MEDS: GUAIFENESIN 600 MG TABLET.SA PO SCH (09:15)
[2017-12-25] MEDS: FUROSEMIDE 40 MG TABLET PO SCH (09:15)
[2017-12-25] MEDS: INSULIN LISPRO 100 UNIT/ML 3 ML VIAL SUBCUT PRN ×2 (09:16→12:30)
[2017-12-25] MEDS: METOPROLOL SUCCINATE 50 MG TAB.SR.24H PO SCH (09:16)
[2017-12-25] MEDS: LISINOPRIL 10 MG TABLET PO SCH (10:01)
[2017-12-25 11:42] VITALS: BP 146/66
[2017-12-25] MEDS ORDERED: LACTULOSE SYRUP 20 GM/30 ML UDCUP PO ONE (12:00)
--- NOTE | 2017-12-26 09:43 | DISCHARGE SUMMARY E ---
Discharge Summary NAME: RUSSELL PARRA : 1950 AGE: 67Y ADMITTED: 12/23/2017 DISCHARGED: 12/25/2017 CODE STATUS: Full code. PRIMARY CARE PROVIDER: Thomas Mcdonough DISCHARGE DIAGNOSES: 1. CHRONIC OBSTRUCTIVE PULMONARY DISEASE. 2. ACUTE ON CHRONIC HYPOXEMIC RESPIRATORY FAILURE. 3. OBSTRUCTIVE SLEEP APNEA. 4. DIABETES MELLITUS TYPE 2. 5. HYPERTENSION. 6. CORONARY ARTERY DISEASE. 7. MORBID OBESITY WITH A BMI OF 44.9. 8. CHRONIC KIDNEY DISEASE STAGE III. DISCHARGE MEDICATIONS: 1. Colchicine 0.6 mg p.o. daily. 2. Prednisone 60 mg taper. 3. Nebulizer machine. 4. Singulair 10 mg p.o. 30 tablets with no refills. 5. Albuterol HFA MDI 1-2 puffs inhalation q.4 hours as needed. 6. Albuterol sulfate 2.5 mg inhaled nebs q.4 hours as needed, 30 with no refills. 7. Zocor 40 mg p.o. 8. Potassium 20 mEq p.o. daily. 9. Toprol-XL 100 mg p.o. daily. 10. Glucophage 500 mg p.o. with supper. 11. Lisinopril 20 mg p.o. daily. 12. Tresiba 80 mg p.o. 13. Novolog FlexPen as per sliding scale coverage. 14. Neurontin 300 mg p.o. q.8 hours. 15. Lasix 50 mg p.o. every morning. 16. Plavix 75 mg p.o. daily. 17. Carbamazepine 200 mg p.o. q.12 hours. 18. Aspirin 81 mg p.o. daily. DIET: Diabetic, heart healthy, as tolerated. ACTIVITY: As tolerated. CONDITION: Fair. DIAGNOSTICS/LAB VALUES: Hematology on 12/24/2017: WBC 6.6, hemoglobin 12.0, hematocrit 35.6, platelet count 179,000. ABG obtained on 12/24/2017: pH 7.39, pCO2 of 38.7, pO2 of 68, bicarb 22.7. Chemistry obtained on 12/24/2017: Sodium 139, potassium 4.8, chloride 100, carbon dioxide 22, BUN 30, creatinine 1.4, glucose 263, calcium 9.1, phosphorus 3.3. Bilirubin 0.3. AST 24, ALT 16, alkaline phosphatase 51. CK 73, CKMB 1.47, troponin 0.019, total protein 6.7, albumin 3.8. Toxicology: Carbamazepine level is 7.6. Serology: Influenza A and B obtained on 12/23/2017 are negative. Blood cultures done 12/23/2017 show no growth. Chest x-ray obtained on 12/23/2017 revealed no consolidation or evidence of pleural effusion. PHYSICAL EXAMINATION: GENERAL: The patient is a well-developed, well-nourished 67-year-old male who is awake, alert, and oriented to person, place, time, and situation. He is verbal, conversational. Does not appear to be in any acute distress. VITAL SIGNS: Temperature 97.7, pulse 68, respirations 16, blood pressure 130/56, oxygen saturation 93% on room air. SKIN: Warm and dry. No rashes. Not diaphoretic. HEENT: Pupils are equal, round, and reactive to light and accommodation. No JVP. CVS: Heart is regular with no rub. CHEST: The patient does have diminished lung sounds throughout, but wheezes are not as prevalent as yesterday. ABDOMEN: Obese, soft. EXTREMITIES: No clubbing or cyanosis, though he does have chronic bilateral lower extremity lymphedema. HISTORY OF PRESENT ILLNESS: The patient is a 67-year-old male with a past medical history of coronary artery disease with sleep apnea. The patient presented to the emergency department with a chief complaint of shortness of breath. According to the patient, about 3 days ago he had progressing shortness of breath associated with a persistent nonproductive cough, wheezing. Denied any pleuritic chest pain, no fevers, chills, nausea, vomiting. The patient stated that he has been diagnosed with bronchial asthma years ago and his last exacerbation was about 4 years ago. The patient has been using albuterol home inhaler for over 2 days without success. The patient notes some pleuritic symptoms. The patient is a nonsmoker. While in the emergency department, the patient was noted to have acute respiratory distress, tachypnea, retraction as per ED notes. While in the emergency department, the patient was given a bag of magnesium, Solu-Medrol, several nebs, and required O2 at 2 liters. The patient was still moderately wheezing and desaturated 80% on room air. Initially, the patient declined to stay in the hospital; was adamant he wanted to go home, but his convinced him to stay. Chest x-ray was not suggestive of pneumonia and the patient was referred to the hospitalist for admission and management. HOSPITAL COURSE: The patient was admitted to the medical unit. The patient was placed on scheduled nebulizers as well as PRN. The patient additionally was covered with Singulair and steroids. The patient had significant improvement of symptoms and did not require oxygen for the last 24 hours. The patient's conversational dyspnea completely resolved, and the patient states he feels completely at his baseline. The patient did have some difficulty controlling his glucose, given the steroids. However, he was covered with his sliding scale coverage in addition to our sliding scale coverage as well as the patient's basal insulin. Given the patient's difficulty with his blood sugar and so forth, he was quite eager for discharge. Time spent on this discharge including assessment, plan, physical examination, patient education, review of records, is 25 minutes. DICTATING PHYSICIAN: THOMAS VELÁSQUEZ NP [id number] PHY#: [id number] ID: [id number] JOB#: [id number] ACCT: [id number] cc:Jairon HER NP > MTDD
--- NOTE | 2018-01-20 07:42 | DISCHARGE SUMMARY E ---
Discharge Summary NAME: RUSSELL PARRA : 1950 AGE: 67Y ADMITTED: 12/23/2017 DISCHARGED: 12/25/2017 ADDENDUM: HOSPITAL COURSE: The patient was actually admitted to the hospitalist service as documented by Dr. Lazarus Ventura, the ER provider. The patient's oxygen saturations dropped to 88% on room air, which is his whole reason for admission. The patient did require O2 to bring his oxygen saturation above 90%. He remained on O2 at 2L throughout the duration of his admission. Upon my first evaluation of the patient on 12/24/2017, the patient was transitioned off his nasal cannula. Therefore, I do agree the patient did have acute on chronic hypoxemic respiratory failure given that he did require O2 supplementation during the duration of his first day. DICTATING PHYSICIAN: THOMAS VELÁSQUEZ NP [id number] PHY#: [id number] ID: [id number] JOB#: [id number] ACCT: [id number] cc:GILSON BILLINGSLEY M.D., MICHAEL NP >
== END 2017-12-25 13:35 | disposition home or self-care (01) | DRG 190 ==
LOC: ER 16:29 → EH 21:08 → 4S 22:50
PROVIDERS: ADMIT Internal Medicine; ATTEND Internal Medicine
PROC: 3E0F73Z Introduction of Anti-inflammatory into Respiratory Tract, Via Natural or Artificial Opening (ICD-10-PCS; principal; 2017-12-23)
PROC: 3E02340 Introduction of Influenza Vaccine into Muscle, Percutaneous Approach (ICD-10-PCS; 2017-12-25)
DX: J44.1 Chronic obstructive pulmonary disease with (acute) exacerbation (principal); J96.21 Acute and chronic respiratory failure with hypoxia; Z68.41 Body mass index [BMI] 40.0-44.9, adult; G47.33 Obstructive sleep apnea (adult) (pediatric); E11.22 Type 2 diabetes mellitus with diabetic chronic kidney disease; I12.9 Hypertensive chronic kidney disease with stage 1 through stage 4 chronic kidney disease, or unspecified chronic kidney disease; I25.10 Atherosclerotic heart disease of native coronary artery without angina pectoris; E66.01 Morbid (severe) obesity due to excess calories; N18.3 Chronic kidney disease, stage 3 (moderate); E78.00 Pure hypercholesterolemia, unspecified; K21.9 Gastro-esophageal reflux disease without esophagitis; M15.9 Polyosteoarthritis, unspecified; E11.628 Type 2 diabetes mellitus with other skin complications; I45.10 Unspecified right bundle-branch block; Z23 Encounter for immunization; I25.2 Old myocardial infarction; Z79.899 Other long term (current) drug therapy; Z90.49 Acquired absence of other specified parts of digestive tract; Z95.1 Presence of aortocoronary bypass graft; Z95.5 Presence of coronary angioplasty implant and graft; Z82.49 Family history of ischemic heart disease and other diseases of the circulatory system; Z83.3 Family history of diabetes mellitus; Z79.4 Long term (current) use of insulin
CPT/HCPCS: 36415; 36600; 71046; 80048; 80053; 80156; 82550; 82553; 82803; 82962; 84100; 84484; 85025; 85027; 87040; 87804; 90471; 90686; 93005; 93010; 94640; 94799; 96365; 96372; 99291; G0008; J1644; J1815; J2930; J3475; J3490; J7620

== ENCOUNTER 2018-08-31 11:44 | Inpatient (IN) | payer MEDICARE, OTHER ==
[2018-08-31] MEDS ORDERED: NORMAL SALINE 1000 ML 1,000 ML IV ONE (13:49)
[2018-08-31 15:14] LABS: VENOUS BLOOD BASE EXCESS -0.3 mmol/L; VENOUS BLOOD HCO3 24.7 mmol/L (20-32); VENOUS BLOOD PCO2 41.8 mmHg (35-63); VENOUS BLOOD PH 7.39 (7.30-7.42)
[2018-08-31 15:16] LABS: ABSOLUTE EOSINOPHILS # (AUTO) 0.1 10^3/uL (0.0-0.6); ABSOLUTE LYMPHOCYTES (AUTO) 1.4 10^3/uL (0.5-4.7); BASOPHILS % (AUTO) 0.2 % (0-2); EOSINOPHILS % (AUTO) 0.7 % (0-6); HEMATOCRIT 31.9 % (37.9-51.0); HEMOGLOBIN 10.8 g/dL (13.5-17.0); LYMPHOCYTES % (AUTO) 10.3 % (13-45); MEAN CORPUSCULAR VOLUME 91 fl (80-97); MONOCYTES % (AUTO) 7.1 % (3-13); PLATELET COUNT 242 10^3/uL (150-450); RED BLOOD COUNT 3.49 10^6/uL (4.35-5.55); SEGMENTED NEUTROPHILS % (AUTO) 81.7 % (42-78); TOTAL CELLS COUNTED % (AUTO) 100 %; WHITE BLOOD COUNT 13.5 10^3/uL (4.0-10.5)
--- NOTE | 2018-08-31 15:18 | RADIOLOGY REPORT (SQ) ---
EXAM DESCRIPTION: CHEST 2 VIEWS COMPLETED DATE/TIME: 08/31/2018 3:07 pm REASON FOR STUDY: weakness COMPARISON: 12/23/2017 EXAM PARAMETERS: NUMBER OF VIEWS: two views TECHNIQUE: Digital Frontal and Lateral radiographic views of the chest acquired. RADIATION DOSE: NA LIMITATIONS: none FINDINGS: LUNGS AND PLEURA: No opacities, masses or pneumothorax. No pleural effusion. MEDIASTINUM AND HILAR STRUCTURES: No masses or contour abnormalities. HEART AND VASCULAR STRUCTURES: Cardiomegaly status post median sternotomy. BONES: No acute findings. HARDWARE: None in the chest. OTHER: No other significant finding. IMPRESSION: Cardiomegaly without acute abnormality of the lungs. TECHNICAL DOCUMENTATION: JOB ID: [id number] [employer]- All Rights Reserved Reading location - IP/workstation name: [email or web address]
[2018-08-31 15:20] LABS: INTERNATIONAL RATION (INR) 1.18
[2018-08-31 15:21] LABS: APPEARANCE,URINE SLIGHTLY-CLOUDY; BILIRUBIN,URINE NEGATIVE (NEGATIVE); COLOR,URINE YELLOW; GLUCOSE, URINE >=500 mg/dL (NEGATIVE); KETONES,URINE 20 mg/dL (NEGATIVE); LEUKOCYTE ESTERASE,URINE NEGATIVE (NEGATIVE); NITRITE,URINE NEGATIVE (NEGATIVE); PROTEIN,URINE 30 mg/dL (NEGATIVE); UROBILINOGEN,URINE NEGATIVE mg/dL (<2.0)
[2018-08-31 15:37] LABS: ALANINE AMINOTRANSFERASE 17 U/L (21-72); ALBUMIN 3.8 g/dL (3.5-5.0); ALKALINE PHOSPHATASE 61 U/L (38-126); ANION GAP 12 (5-19); ASPARTATE AMINO TRANSFERASE 25 U/L (17-59); BILIRUBIN,DIRECT 0.3 mg/dL (0.0-0.4); BILIRUBIN,TOTAL 0.5 mg/dL (0.2-1.3); BLOOD UREA NITROGEN 28 mg/dL (7-20); CALCIUM 9.4 mg/dL (8.4-10.2); CARBON DIOXIDE 29 mmol/L (22-30); CHLORIDE 97 mmol/L (98-107); CREATINE KINASE 65 U/L (55-170); POTASSIUM 4.4 mmol/L (3.6-5.0); SODIUM 138.2 mmol/L (137-145); TOTAL PROTEIN 7.2 g/dL (6.3-8.2)
[2018-08-31 15:50] LABS: CREATINE KINASE MB 0.39 ng/mL (<4.55)
[2018-08-31 15:56] LABS: GLUCOSE 415 mg/dL (75-110); TROPONIN I 0.061 ng/mL
--- NOTE | 2018-08-31 17:49 | ER Document Report ---
Entered by MANDY FLORES SCRIBE 08/31/18 1411 Acting as scribe for:THOMAS FLOWERS DO ED General - General Chief Complaint: Trouble Walking Stated Complaint: UNABLE TO WALK Time Seen by Provider: 08/31/18 12:12 Notes: Patient presents the emergency department via EMS for difficulty walking. He was trying to go see his doctor for increasing pain in his bilateral feet which he attributes to his gout however when he tried to get up today he was unable to stand up due to increasing weakness. Patient has apparently been having diarrhea for the past 9 to 10 days since August 22 which the describes as watery and nonbloody associated with nausea but no vomiting as well as chills but no fevers. Patient also had productive cough that was not decreased by a nebulizer that resolved last night. Denies any chest pain or shortness of breath. Patient also complains of pain to his right arm and right leg. States that this has been chronic intermittent for the past 6 years since he had a stroke. States that his difficulty walking today is worse than usual. Denies any numbness or tingling. Does complain of swelling to his bilateral lower extremities. TRAVEL OUTSIDE OF THE [place] IN LAST 30 DAYS: No - Related Data Allergies/Adverse Reactions: No Known Allergies Allergy (Verified 12/23/17 16:31) Past Medical History - General Information source: Patient, Relative - Spouse - Social History Smoking Status: Never Smoker Frequency of alcohol use: None Drug Abuse: None Family History: Reviewed & Not Pertinent, CAD, DM Patient has suicidal ideation: No Patient has homicidal ideation: No - Past Medical History Cardiac Medical History: Reports: Hx Coronary Artery Disease, Hx Heart Attack, Hx Hypercholesterolemia, Hx Hypertension Pulmonary Medical History: Reports: Hx Asthma - IN PAST, Hx Sleep Apnea - cpap did not help Denies: Hx Bronchitis, Hx COPD, Hx Pneumonia, Hx Tuberculosis Neurological Medical History: Reports: Hx Cerebrovascular Accident - R SIDE WEAKNESS. Denies: Hx Seizures Endocrine Medical History: Reports: Hx Diabetes Mellitus Type 2 Renal/ Medical History: Denies: Hx Peritoneal Dialysis GI Medical History: Reports: Hx Gastroesophageal Reflux Disease. Denies: Hx Hepatitis, Hx Hiatal Hernia, Hx Ulcer Musculoskeletal Medical History: Reports Hx Arthritis - GENERALIZED Skin Medical History: Reports Hx Cellulitis - Lower extremity cellulitis due to chronic edema Psychiatric Medical History: Denies: Hx Depression Traumatic Medical History: Reports: Hx Fractures - right gallegos Infectious Medical History: Denies: Hx Hepatitis Past Surgical History: Reports: Hx Appendectomy, Hx Cardiac Catheterization - CABG, Stent placed, Hx Cholecystectomy, Hx Coronary Artery Bypass Graft - 5 vessels, Hx Coronary Stent, Hx Open Heart Surgery - STENT bypass. Denies: Hx Pacemaker - Immunizations Hx Diphtheria, Pertussis, Tetanus Vaccination: No Hx Pneumococcal Vaccination: 12/22/16 Review of Systems - Review of Systems Constitutional: See HPI, Chills, Malaise. denies: Diaphoresis EENT: No symptoms reported Cardiovascular: No symptoms reported. denies: Chest pain, Palpitations Respiratory: See HPI, Cough. denies: Short of breath Gastrointestinal: See HPI, Diarrhea, Nausea. denies: Vomiting Musculoskeletal: See HPI -: Yes All other systems reviewed and negative Physical Exam - Vital signs Vitals: Temp Pulse Resp BP Pulse Ox 99.7 F 103 H 18 144/52 H 95 08/31/18 11:50 08/31/18 11:50 08/31/18 11:50 08/31/18 11:50 08/31/18 11:50 Interpretation: Tachycardic - Notes Notes: GENERAL: Alert, interacts well. No acute distress. HEAD: Normocephalic, atraumatic EYES: Pupils equal, round and reactive to light, extraocular movements intact. ENT: Oral mucosa moist, tongue midline. NECK: Full range of motion, supple, trachea midline. LUNGS: Clear to auscultation bilaterally, no wheezes, rales or rhonchi, mildly tachypneic, taking shallow breaths, appears to be mildly short of breath but denies any respiratory distress. HEART: Regular rate and rhythm, no murmurs, gallops, rubs. ABDOMEN: Soft, nontender, nondistended, bowel sounds present in all 4 quadrants. EXTREMITIES: Moves all 4 extremities spontaneously, 2+ pitting edema bilateral lower extremities with chronic woody edema and erythema to the left leg just above the ankle as well as bright erythema to the dorsal aspect of the right foot which is warm to the touch but not tender to palpation, radial and dorsalis pedis pulses 2/4 bilaterally. No cyanosis. NEUROLOGICAL: Alert and oriented x3, normal speech, biceps and patellar DTRs 2+ bilaterally. Slightly weaker on the right than on the left. PSYCH: Normal mood, normal affect. SKIN: Warm, Dry, no rashes or lesions noted. Course - Re-evaluation Re-evalutation: 08/31/18 17:37 CBC shows leukocytosis with a white count of 13.5, hemoglobin low at 10.8, platelets are normal, renal failure stable with a BUN of 28 and creatinine 1.47, glucose is elevated at 415, he has not had any of his medications today. Lactic acid normal at 1.1, troponin indeterminate 0.061, proBNP elevated 1170. Patient states that he is not short of breath however he appears short of breath on physical exam and is intermittently hypoxic. Urinalysis shows 20 of ketones and small blood. Chest x-ray does not show any acute process or acute signs of failure despite the pitting edema and trace crackles in the base of his lungs. Patient was initially hydrated using a liter of normal saline given the almost 10-day history of diarrhea that likely contributed to his weakness. This did not significantly improve his weakness. Every time I go back into the room the patient appears uncomfortable however he says that it is the chronic right-sided pain that he always has after his stroke. When I discussed with him the right sided weakness that has worsened so as to prevent him from walking he says that this is very similar to the deficit he had after his stroke and that sometimes fatigue and other illnesses will cause him to have difficulty work walking however today is worse than usual. Patient does not have any new symptoms just a worsening of his prior stroke deficits without any sensory symmtoms. Discussed with Dr. Liu who agreed to admit the patient for careful rehydration given his CHF and he will also order a CT of the head given the patient's worsening of his prior stroke symptoms. 08/31/18 17:47 Patient just called me in the room to tell me that he would like to be discharged after all. Patient states that the only reason why he wants to be discharged is because he does not want to sit in the bed any longer. I have agreed to allow the patient to be moved into recliner while he is in the emergency department. I think it is very important that the patient stay for further work-up and treatment. Patient is agreeable to being admitted so long as he is in a recliner. - Vital Signs Vital signs: Temp Pulse Resp BP Pulse Ox 99.7 F 103 H 15 144/52 H 98 08/31/18 11:50 08/31/18 11:50 08/31/18 19:00 08/31/18 11:50 08/31/18 19:00 - Laboratory Result Diagrams: 08/31/18 14:47 08/31/18 14:47 Laboratory results interpreted by me: 08/31/18 08/31/18 08/31/18 14:47 14:47 14:47 WBC 13.5 H RBC 3.49 L Hgb 10.8 L Hct 31.9 L Seg Neutrophils % 81.7 H Lymphocytes % 10.3 L Absolute Neutrophils 11.0 H Chloride 97 L BUN 28 H Creatinine 1.47 H Est GFR ( Amer) 58 L Est GFR (Non-Af Amer) 48 L Glucose 415 H* ALT 17 L NT-Pro-B Natriuret Pep 1170 H Urine Protein Urine Glucose (UA) Urine Ketones Urine Blood 08/31/18 14:47 WBC RBC Hgb Hct Seg Neutrophils % Lymphocytes % Absolute Neutrophils Chloride BUN Creatinine Est GFR ( Amer) Est GFR (Non-Af Amer) Glucose ALT NT-Pro-B Natriuret Pep Urine Protein 30 H Urine Glucose (UA) >=500 H Urine Ketones 20 H Urine Blood SMALL H - EKG Interpretation by Me Additional EKG results interpreted by me: 08/31/18 17:40 EKG shows sinus tachycardia at a rate of 102, left axis deviation, slight QRS widening at 104, ST segment depressions in 1 and aVL which are slightly worse than prior EKG, persistent T wave inversions in V1 and V2 as compared to prior EKG on 12/23/2017, no ST segment elevations per my interpretation. Discharge - Discharge Clinical Impression: Right sided weakness, Unable to ambulate, Diabetes mellitus type 2 in obese, Morbid obesity with BMI of 40.0-44.9, adult, Chronic kidney disease, stage 3, Lower extremity edema Condition: Fair Disposition: ADMITTED INPATIENT Admitting Provider: Noe (Hospitalist) Unit Admitted: Telemetry I personally performed the services described in the documentation, reviewed and edited the documentation which was dictated to the scribe in my presence, and it accurately records my words and actions.
[2018-08-31] MEDS ORDERED: ACETAMINOPHEN 650 MG SUPP.RECT PR PRN (17:55)
[2018-08-31] MEDS ORDERED: ONDANSETRON HCL INJ/PF 4 MG/2 ML SDV IV PRN (17:55)
[2018-08-31] MEDS ORDERED: DEXTROSE 50%-WATER 25 GM/50 ML DISP.SYRIN IV PRN ×2 (17:59)
[2018-08-31] MEDS ORDERED: GLUCAGON,HUMAN RECOMB 1 MG INJ IM PRN (17:59)
[2018-08-31] MEDS ORDERED: DEXTROSE 40% GEL 15 GM TUBE PO PRN ×2 (17:59)
--- NOTE | 2018-08-31 18:08 | PDOC H&P ---
History of Present Illness Admission Date/PCP: HTOMAS PELAEZ MD History of Present Illness: RUSSELL PARRA is a 67 year old male with history of right-sided CVA, obesity, type 2 diabetes mellitus, hypertension, coronary disease, osteoarthritis, hyperlipidemia, asthma came to the emergency room with complaints of trouble walking from this morning. As per the patient patient has diarrhea for the last 1 week and not associated with nausea not associated with vomiting no abdominal pains no blood in the stool not associated with fever. Watery stool. No other complaints. Work-up in the emergency room shows WBC count of 13,500 BNP of 1100 with bilateral pedal edema chest x-ray shows cardiomegaly. Because the patient has trouble in walking and diarrhea medical consult was requested for admission. Past Medical History Cardiac Medical History: Reports: Coronary Artery Disease, Myocardial Infarction, Hyperlipidema, Hypertension Pulmonary Medical History: Reports: Asthma - IN PAST, Sleep Apnea - cpap did not help Denies: Bronchitis, Chronic Obstructive Pulmonary Disease (COPD), Pneumonia, Tuberculosis Neurological Medical History: Denies: Seizures Endocrine Medical History: Reports: Diabetes Mellitus Type 2 GI Medical History: Reports: Gastroesophageal Reflux Disease Denies: Hepatitis, Hiatal Hernia Musculoskeltal Medical History: Reports: Arthritis - GENERALIZED Psychiatric Medical History: Denies: Depression Hematology: Denies: Anemia, Sickle Cell Disease Past Surgical History Past Surgical History: Reports: Appendectomy, Cardiac Catheterization - CABG, Stent placed, Cholecystectomy, Coronary Artery Bypass Graft - 5 vessels, Coronary Stent Denies: Pacemaker Social History Smoking Status: Never Smoker Frequency of Alcohol Use: None Hx Recreational Drug Use: No Drugs: None Hx Prescription Drug Abuse: No - Advance Directive Resuscitation Status: Do Not Resuscitate Family History Family History: Reviewed & Not Pertinent, CAD, DM Parental Family History Reviewed: Yes - Mother with history of heart disease. Children Family History Reviewed: Yes Sibling(s) Family History Reviewed.: Yes Medication/Allergy Allergies/Adverse Reactions: No Known Allergies Allergy (Verified 12/23/17 16:31) Review of Systems Constitutional: PRESENT: fatigue, weakness. ABSENT: fever(s), headache(s), night sweats Eyes: ABSENT: visual disturbances Ears: ABSENT: hearing changes Nose, Mouth, and Throat: ABSENT: sore throat Respiratory: ABSENT: hemoptysis Gastrointestinal: PRESENT: diarrhea. ABSENT: abdominal pain, coffee ground emesis, heartburn, hematemesis, nausea, vomiting Genitourinary: ABSENT: dysuria, hematuria Neurological: PRESENT: other - Unsteady gait. Psychiatric: ABSENT: anxiety, depression, homidical ideation, suicidal ideation Endocrine: ABSENT: cold intolerance, heat intolerance, polydipsia, polyuria Physical Exam Vital Signs: Temp Pulse Resp BP Pulse Ox 99.7 F 103 H 36 H 144/52 H 91 L 08/31/18 11:50 08/31/18 11:50 08/31/18 17:00 08/31/18 11:50 08/31/18 17:00 Intake & Output 08/30/18 08/31/18 09/01/18 06:59 06:59 06:59 Intake Total 1000 Balance 1000 Weight 123.3 kg General appearance: PRESENT: cooperative, mild distress, morbidly obese Head exam: PRESENT: atraumatic Eye exam: PRESENT: PERRLA Ear exam: PRESENT: normal external ear exam Mouth exam: PRESENT: moist, tongue midline Teeth exam: PRESENT: poor dentation Neck exam: ABSENT: carotid bruit, JVD, lymphadenopathy, thyromegaly Respiratory exam: PRESENT: decreased breath sounds Cardiovascular exam: PRESENT: tachycardia GI/Abdominal exam: PRESENT: normal bowel sounds, soft. ABSENT: distended, guarding, mass, organolmegaly, rebound, tenderness Rectal exam: PRESENT: deferred Extremities exam: PRESENT: +2 edema, other - 2+ pedal edema with left lower leg with chronic redness. Most likely secondary to venous dialysis. Neurological exam: PRESENT: alert, altered, awake, oriented to person, oriented to place, oriented to time, other - Patient has right-sided weakness secondary to previous stroke. Results Laboratory Results: 08/31/18 14:47 08/31/18 14:47 08/31/18 08/31/18 08/31/18 14:47 14:47 14:47 WBC 13.5 H RBC 3.49 L Hgb 10.8 L Hct 31.9 L MCV 91 MCH 31.0 MCHC 34.0 RDW 13.0 Plt Count 242 Seg Neutrophils % 81.7 H Lymphocytes % 10.3 L Monocytes % 7.1 Eosinophils % 0.7 Basophils % 0.2 Absolute Neutrophils 11.0 H Absolute Lymphocytes 1.4 Absolute Monocytes 1.0 Absolute Eosinophils 0.1 Absolute Basophils 0.0 VBG pH VBG pCO2 VBG HCO3 VBG Base Excess Sodium 138.2 Potassium 4.4 Chloride 97 L Carbon Dioxide 29 Anion Gap 12 BUN 28 H Creatinine 1.47 H Est GFR ( Amer) 58 L Est GFR (Non-Af Amer) 48 L Glucose 415 H* Lactic Acid 1.1 Calcium 9.4 Total Bilirubin 0.5 AST 25 ALT 17 L Alkaline Phosphatase 61 Total Protein 7.2 Albumin 3.8 Urine Color Urine Appearance Urine pH Ur Specific [place] Urine Protein Urine Glucose (UA) Urine Ketones Urine Blood Urine Nitrite Ur Leukocyte Esterase Urine WBC (Auto) Urine RBC (Auto) 08/31/18 08/31/18 14:47 14:47 WBC RBC Hgb Hct MCV MCH MCHC RDW Plt Count Seg Neutrophils % Lymphocytes % Monocytes % Eosinophils % Basophils % Absolute Neutrophils Absolute Lymphocytes Absolute Monocytes Absolute Eosinophils Absolute Basophils VBG pH 7.39 VBG pCO2 41.8 VBG HCO3 24.7 VBG Base Excess -0.3 Sodium Potassium Chloride Carbon Dioxide Anion Gap BUN Creatinine Est GFR ( Amer) Est GFR (Non-Af Amer) Glucose Lactic Acid Calcium Total Bilirubin AST ALT Alkaline Phosphatase Total Protein Albumin Urine Color YELLOW Urine Appearance SLIGHTLY-CLOUDY Urine pH 5.0 Ur Specific [place] 1.020 Urine Protein 30 H Urine Glucose (UA) >=500 H Urine Ketones 20 H Urine Blood SMALL H Urine Nitrite NEGATIVE Ur Leukocyte Esterase NEGATIVE Urine WBC (Auto) 1 Urine RBC (Auto) 0 08/31/18 08/31/18 14:47 14:47 Creatine Kinase 65 CK-MB (CK-2) 0.39 Troponin I 0.061 NT-Pro-B Natriuret Pep 1170 H Impressions: Chest X-Ray 08/31/18 13:50 IMPRESSION: Cardiomegaly without acute abnormality of the lungs. Assessment and Plan - Diagnosis (1) Unable to ambulate Is this a current diagnosis for this admission?: Yes Plan: 08/31/2018-this elderly male with multiple medical problems came to the emergency room with complaints of trouble walking from this morning. He is also has a diarrhea for more than a week. Plan to put him in telemetry under observation. Aspiration fall risk precautions are requested CT head was requested. Physical therapy consult was requested. GI prophylaxis DVT prophylaxis are initiated. (2) Lower extremity edema Is this a current diagnosis for this admission?: No Plan: 08/31/2018-patient has a chronic history of bilateral pedal edema and BNP was elevated 1100 chest x-ray shows cardiomegaly most likely has chronic systolic h eart failure. Plan to start him on Lasix 40 mg p.o. twice daily. (3) Diabetes mellitus type 2 in obese Is this a current diagnosis for this admission?: No Plan: 08/31/2018-patient blood sugar is 415 in the emergency room he has a history of type 2 diabetes mellitus plan to start him on insulin sliding scale before meals and at bedtime and to check hemoglobin tomorrow. We do not have the home medication list available. (4) Morbid obesity with BMI of 40.0-44.9, adult Is this a current diagnosis for this admission?: No Plan: 08/31/2018-patient's BMI is more than 43 diet exercise weight loss lifestyle modifications are discussed with the patient. (5) Hypertension Qualifiers: Hypertension type: essential hypertension Qualified Code(s): I10 - Essential (primary) hypertension Is this a current diagnosis for this admission?: No Plan: 08/31/2018-patient history of hypertension essential hypertension blood pressure in the emergency room is 140/85 started on Lasix 40 mg IV twice daily once the home medication list was available we will do the reconciliation. (6) Diarrhea Is this a current diagnosis for this admission?: Yes Plan: 08/31/2018-patient came in with the diarrhea symptoms for the last 1 week stool for WBC, culture, C. difficile and stool for occult blood was requested. (7) Chronic kidney disease, stage 3 Is this a current diagnosis for this admission?: No Plan: 08/31/2018-patient has history of chronic kidney disease stage III creatinine is 1.46 it stable at the baseline which was is around 1.4. - Time Time Spent with patient: 25-34 minutes Medications reviewed and adjusted accordingly: Yes Anticipated discharge: Home
[2018-08-31] MEDS: ASPIRIN 81 MG TABLET, ENT COATED PO SCH (18:56)
[2018-08-31] MEDS: PANTOPRAZOLE SODIUM 40 MG TABLET.DR PO SCH (18:57)
[2018-08-31] MEDS: FUROSEMIDE 40 MG TABLET PO SCH (18:57)
[2018-08-31] MEDS ORDERED: LISINOPRIL 10 MG TABLET PO SCH (19:00)
--- NOTE | 2018-08-31 19:10 | RADIOLOGY REPORT (SQ) ---
EXAM DESCRIPTION: CT HEAD WITHOUT COMPLETED DATE/TIME: 08/31/2018 6:49 pm REASON FOR STUDY: cva COMPARISON: None. TECHNIQUE: Axial images acquired through the brain without intravenous contrast. Images reviewed wit h bone, brain and subdural windows. Images stored on PACS. All CT scanners at this facility use dose modulation, iterative reconstruction, and/or weight based d osing when appropriate to reduce radiation dose to as low as reasonably achievable (ALARA). [facility]: Dose Right [facility]: CareDose [facility]: Dose Right [facility]: Teradose 4D [facility]: Smart Jellyvision RADIATION DOSE: CT Rad equipment meets quality standard of care and radiation dose reduction techniq ues were employed. CTDIvol: 48.6 mGy. DLP: 929 mGy-cm.. LIMITATIONS: None. FINDINGS: VENTRICLES: Ex vacuo enlargement of the posterior horn of the left lateral ventricle, othe rwise age-appropriate. CEREBRUM: No masses. No hemorrhage. No midline shift. Encephalomalacia in the left occipital lobe, o therwise age appropriate white matter. No evidence for acute infarction. CEREBELLUM: No masses. No hemorrhage. No alteration of density. No evidence for acute infarction. EXTRA-AXIAL SPACES: No fluid collections. ORBITS AND GLOBE: No intra- or extraconal masses. Normal contour of globe without masses. CALVARIUM: No fracture. PARANASAL SINUSES: Left maxillary mucosal thickening. SOFT TISSUES: No mass or hematoma. OTHER: No other significant finding. IMPRESSION: No hemorrhage. No midline shift. Encephalomalacia in the left occipital lobe, otherwis e age appropriate white matter. No evidence for acute infarction. EVIDENCE OF ACUTE STROKE: NO. TECHNICAL DOCUMENTATION: JOB ID: [id number] [place]-72 Quality ID # [id number]: Final reports with documentation of one or more dose reduction techniques (e.g., Au tomated exposure control, adjustment of the mA and/or kV according to patient size, use of iterative reconstruction technique) 2010 [employer]- All Rights Reserved Reading location - IP/workstation name: [email or web address]
--- NOTE | 2018-08-31 19:22 | RADIOLOGY REPORT (SQ) ---
EXAM DESCRIPTION: ABDOMEN 2 VIEWS COMPLETED DATE/TIME: 08/31/2018 6:30 pm REASON FOR STUDY: diarrhea COMPARISON: None. NUMBER OF VIEWS: Two views. TECHNIQUE: Supine and erect/decubitus radiographic images of the abdomen acquired. LIMITATIONS: None. FINDINGS: FREE AIR: None. No abnormal gas collections. LUNG BASES: Clear. BOWEL GAS PATTERN: Few scattered small bowel loops with air fluid levels. No distended large or small bowel loops are identified. Moderate stool burden. CALCIFICATIONS: No suspicious calcifications. SOFT TISSUES: No gross mass or suggestion of organomegaly. HARDWARE: Cholecystectomy clips. BONES: No acute fracture. No worrisome bone lesions. OTHER: No other significant finding. IMPRESSION: NON-SPECIFIC BOWEL GAS PATTERN .Few scattered small bowel loops with air fluid levels. N o distended large or small bowel loops are identified. Moderate stool burden. TECHNICAL DOCUMENTATION: JOB ID: [id number] [place]-72 2010 [employer]- All Rights Reserved Reading location - IP/workstation name: [email or web address]
--- NOTE | 2018-08-31 20:01 | EKG REPORT ---
SEVERITY:- ABNORMAL ECG - SINUS TACHYCARDIA REPOL ABNRM SUGGESTS ISCHEMIA, DIFFUSE LEADS : Confirmed by: Adali Winkler MD 31-Aug-2018 20:01:07
[2018-08-31] MEDS ORDERED: INSULIN REG, HUMAN 100 UNIT/ML 3 ML VIAL (PYX) SUBCUT ONE (20:39)
[2018-08-31] MEDS ORDERED: INSULIN REG, HUMAN 100 UNIT/ML 3 ML VIAL (PYX) ONE (20:44)
[2018-08-31] MEDS: SIMVASTATIN 10 MG TABLET PO SCH (22:30)
[2018-08-31] MEDS: HEPARIN SOD (PORCINE) 5,000 UNIT/ML 1 ML SYRINGE SUBCUT SCH (22:31)
[2018-08-31] MEDS: INSULIN REG, HUMAN 100 UNIT/ML 3 ML VIAL (PYX) SUBCUT SCH (22:31)
[2018-09-01] MEDS: ACETAMINOPHEN 325 MG TABLET PO PRN ×3 (03:49→22:04)
[2018-09-01 05:31] LABS: ABSOLUTE LYMPHOCYTES (AUTO) 1.1 10^3/uL (0.5-4.7); EOSINOPHILS % (AUTO) 0.2 % (0-6); HEMATOCRIT 30.1 % (37.9-51.0); HEMOGLOBIN 10.5 g/dL (13.5-17.0); LYMPHOCYTES % (AUTO) 8.1 % (13-45); MEAN CORPUSCULAR HEMOGLOBIN 31.5 pg (27.0-33.4); MEAN CORPUSCULAR HGB CONC 34.9 g/dL (32.0-36.0); MEAN CORPUSCULAR VOLUME 90 fl (80-97); MONOCYTES % (AUTO) 7.7 % (3-13); PLATELET COUNT 222 10^3/uL (150-450); RED BLOOD COUNT 3.34 10^6/uL (4.35-5.55); RED CELL DISTRIBUTION WIDTH 12.7 % (11.5-14.0); TOTAL CELLS COUNTED % (AUTO) 100 %
[2018-09-01] MEDS: PANTOPRAZOLE SODIUM 40 MG TABLET.DR PO SCH ×2 (05:35→17:55)
[2018-09-01] MEDS: HEPARIN SOD (PORCINE) 5,000 UNIT/ML 1 ML SYRINGE SUBCUT SCH (05:35)
[2018-09-01 05:55] LABS: ALANINE AMINOTRANSFERASE 33 U/L (21-72); ALBUMIN 3.2 g/dL (3.5-5.0); ALKALINE PHOSPHATASE 54 U/L (38-126); ANION GAP 10 (5-19); ASPARTATE AMINO TRANSFERASE 70 U/L (17-59); BILIRUBIN,DIRECT 0.4 mg/dL (0.0-0.4); BILIRUBIN,TOTAL 0.5 mg/dL (0.2-1.3); BLOOD UREA NITROGEN 24 mg/dL (7-20); CALCIUM 8.8 mg/dL (8.4-10.2); CARBON DIOXIDE 24 mmol/L (22-30); CHLORIDE 102 mmol/L (98-107); GLUCOSE 354 mg/dL (75-110); POTASSIUM 4.3 mmol/L (3.6-5.0); SODIUM 135.5 mmol/L (137-145); TOTAL PROTEIN 5.9 g/dL (6.3-8.2)
[2018-09-01 06:04] LABS: CREATINE KINASE MB 6.38 ng/mL (<4.55)
[2018-09-01 06:07] LABS: TROPONIN I 0.564 ng/mL
[2018-09-01] MEDS ORDERED: (PENDING PHARMACY ID) (Insulin Aspart [Novolog Flexpen] 30 UNIT) SQ SCH (08:00)
[2018-09-01] MEDS: INSULIN REG, HUMAN 100 UNIT/ML 3 ML VIAL (PYX) SUBCUT SCH ×5 (08:00→21:56)
[2018-09-01] MEDS ORDERED: VANCOMYCIN HCL INJ 1000 MG VIAL IV ONE (08:03)
[2018-09-01] MEDS: VANCOMYCIN HCL 750 MG in DEXTROSE 5%-WATER 250 ML IV SCH ×2 (10:47→21:56)
[2018-09-01] MEDS: CLOPIDOGREL BISULFATE 75 MG TABLET PO SCH (10:52)
[2018-09-01] MEDS: METOPROLOL SUCCINATE 50 MG TAB.SR.24H PO SCH (10:53)
[2018-09-01] MEDS: POTASSIUM CHLORIDE 10 MEQ CAPSULE.ER PO SCH (10:53)
[2018-09-01] MEDS: FUROSEMIDE 40 MG TABLET PO SCH ×2 (10:55→17:55)
[2018-09-01] MEDS: CARBAMAZEPINE 200 MG TABLET PO SCH ×2 (10:59→21:55)
[2018-09-01] MEDS: ASPIRIN 81 MG TABLET, ENT COATED PO SCH (11:23)
[2018-09-01] MEDS: COLCHICINE 0.6 MG TABLET PO SCH (11:24)
[2018-09-01] MEDS: ENOXAPARIN SODIUM INJ 120 MG/0.8 ML DISP.SYRIN SUBCUT SCH ×2 (11:25→21:55)
[2018-09-01] MEDS: INSULIN LISPRO 100 UNIT/ML 3 ML VIAL SUBCUT SCH ×2 (11:56→17:59)
[2018-09-01] MEDS: LISINOPRIL 10 MG TABLET PO SCH (11:58)
[2018-09-01] MEDS ORDERED: PIPERACILLIN/TAZOBACTAM 3.375 GM VIAL IV SCH (12:00)
--- NOTE | 2018-09-01 12:23 | PDOC PROGRESS REPORT ---
Subjective Progress Note for:: 09/01/18 Subjective:: 67 year old male with history of right-sided CVA, obesity, type 2 diabetes mellitus, hypertension, coronary disease, osteoarthritis, hyperlipidemia, asthma came to the emergency room with complaints of trouble walking from this morning. As per the patient patient has diarrhea for the last 1 week and not associated with nausea not associated with vomiting no abdominal pains no blood in the stool not associated with fever. Watery stool. No other complaints. Work-up in the emergency room shows WBC count of 13,500 BNP of 1100 with bilateral pedal edema chest x-ray shows cardiomegaly. Because the patient has trouble in walking and diarrhea medical consult was requested for admission. 09/01/2018-this elderly male admitted with trouble walking and also diarrhea. He has a T-max of 102.6 yesterday and troponin dropped from 0.06-0.56. Started on IV vancomycin and Zosyn blood cultures requested cardiology consult was requested he is going to arrange for the echocardiogram today. Reason For Visit: UNSTEADY GAIT/DIARRHEA Physical Exam Vital Signs: Temp Pulse Resp BP Pulse Ox 99.7 F 107 H 24 H 123/51 L 95 09/01/18 07:17 09/01/18 07:17 09/01/18 07:17 09/01/18 07:17 09/01/18 07:17 Intake & Output 08/31/18 09/01/18 09/02/18 06:59 06:59 06:59 Intake Total 1800 Balance 1800 Weight 120.8 kg General appearance: PRESENT: no acute distress, morbidly obese Head exam: PRESENT: atraumatic Eye exam: PRESENT: PERRLA Mouth exam: PRESENT: moist, tongue midline Teeth exam: PRESENT: poor dentation Neck exam: ABSENT: carotid bruit, JVD, lymphadenopathy, thyromegaly Respiratory exam: PRESENT: clear to auscultation michaela. ABSENT: rales, rhonchi, wheezes Cardiovascular exam: PRESENT: RRR. ABSENT: diastolic murmur, rubs, systolic murmur GI/Abdominal exam: PRESENT: normal bowel sounds, soft. ABSENT: distended, guarding, mass, organolmegaly, rebound, tenderness Rectal exam: PRESENT: deferred Extremities exam: PRESENT: full ROM. ABSENT: calf tenderness, clubbing, pedal edema Neurological exam: PRESENT: alert, awake, oriented to person, oriented to place, oriented to time, oriented to situation, other - Patient has a previous history of CVA involving the right side of the body. Psychiatric exam: PRESENT: appropriate affect, normal mood. ABSENT: homicidal ideation, suicidal ideation Results Laboratory Results: 09/01/18 05:06 09/01/18 05:06 08/31/18 08/31/18 08/31/18 14:47 14:47 14:47 WBC 13.5 H RBC 3.49 L Hgb 10.8 L Hct 31.9 L MCV 91 MCH 31.0 MCHC 34.0 RDW 13.0 Plt Count 242 Seg Neutrophils % 81.7 H Lymphocytes % 10.3 L Monocytes % 7.1 Eosinophils % 0.7 Basophils % 0.2 Absolute Neutrophils 11.0 H Absolute Lymphocytes 1.4 Absolute Monocytes 1.0 Absolute Eosinophils 0.1 Absolute Basophils 0.0 VBG pH VBG pCO2 VBG HCO3 VBG Base Excess Sodium 138.2 Potassium 4.4 Chloride 97 L Carbon Dioxide 29 Anion Gap 12 BUN 28 H Creatinine 1.47 H Est GFR ( Amer) 58 L Est GFR (Non-Af Amer) 48 L Glucose 415 H* Lactic Acid 1.1 Calcium 9.4 Magnesium Total Bilirubin 0.5 AST 25 ALT 17 L Alkaline Phosphatase 61 Total Protein 7.2 Albumin 3.8 TSH Urine Color Urine Appearance Urine pH Ur Specific [place] Urine Protein Urine Glucose (UA) Urine Ketones Urine Blood Urine Nitrite Ur Leukocyte Esterase Urine WBC (Auto) Urine RBC (Auto) 08/31/18 08/31/18 09/01/18 14:47 14:47 05:06 WBC 13.0 H RBC 3.34 L Hgb 10.5 L Hct 30.1 L MCV 90 MCH 31.5 MCHC 34.9 RDW 12.7 Plt Count 222 Seg Neutrophils % 84.0 H Lymphocytes % 8.1 L Monocytes % 7.7 Eosinophils % 0.2 Basophils % 0.0 Absolute Neutrophils 11.0 H Absolute Lymphocytes 1.1 Absolute Monocytes 1.0 Absolute Eosinophils 0.0 Absolute Basophils 0.0 VBG pH 7.39 VBG pCO2 41.8 VBG HCO3 24.7 VBG Base Excess -0.3 Sodium Potassium Chloride Carbon Dioxide Anion Gap BUN Creatinine Est GFR ( Amer) Est GFR (Non-Af Amer) Glucose Lactic Acid Calcium Magnesium Total Bilirubin AST ALT Alkaline Phosphatase Total Protein Albumin TSH Urine Color YELLOW Urine Appearance SLIGHTLY-CLOUDY Urine pH 5.0 Ur Specific [place] 1.020 Urine Protein 30 H Urine Glucose (UA) >=500 H Urine Ketones 20 H Urine Blood SMALL H Urine Nitrite NEGATIVE Ur Leukocyte Esterase NEGATIVE Urine WBC (Auto) 1 Urine RBC (Auto) 0 09/01/18 09/01/18 05:06 05:06 WBC RBC Hgb Hct MCV MCH MCHC RDW Plt Count Seg Neutrophils % Lymphocytes % Monocytes % Eosinophils % Basophils % Absolute Neutrophils Absolute Lymphocytes Absolute Monocytes Absolute Eosinophils Absolute Basophils VBG pH VBG pCO2 VBG HCO3 VBG Base Excess Sodium 135.5 L Potassium 4.3 Chloride 102 Carbon Dioxide 24 Anion Gap 10 BUN 24 H Creatinine 1.32 H Est GFR ( Amer) > 60 Est GFR (Non-Af Amer) 54 L Glucose 354 H Lactic Acid Calcium 8.8 Magnesium 1.6 Total Bilirubin 0.5 AST 70 H ALT 33 Alkaline Phosphatase 54 Total Protein 5.9 L Albumin 3.2 L TSH 1.44 Urine Color Urine Appearance Urine pH Ur Specific [place] Urine Protein Urine Glucose (UA) Urine Ketones Urine Blood Urine Nitrite Ur Leukocyte Esterase Urine WBC (Auto) Urine RBC (Auto) 08/31/18 08/31/18 08/31/18 14:47 14:47 22:23 Creatine Kinase 65 CK-MB (CK-2) 0.39 6.09 H Troponin I 0.061 NT-Pro-B Natriuret Pep 1170 H 09/01/18 09/01/18 05:06 10:26 Creatine Kinase CK-MB (CK-2) 6.38 H 7.38 H Troponin I 0.564 NT-Pro-B Natriuret Pep Impressions: Abdomen X-Ray 08/31/18 00:00 IMPRESSION: NON-SPECIFIC BOWEL GAS PATTERN .Few scattered small bowel loops with air fluid levels. No distended large or small bowel loops are identified. Moderate stool burden. Head CT 08/31/18 00:00 IMPRESSION: No hemorrhage. No midline shift. Encephalomalacia in the left occipital lobe, otherwise age appropriate white matter. No evidence for acute infarction. EVIDENCE OF ACUTE STROKE: NO. Chest X-Ray 08/31/18 13:50 IMPRESSION: Cardiomegaly without acute abnormality of the lungs. Assessment and Plan - Diagnosis (1) Unable to ambulate Is this a current diagnosis for this admission?: Yes Plan: 08/31/2018-this elderly male with multiple medical problems came to the emergency room with complaints of trouble walking from this morning. He is also has a diarrhea for more than a week. Plan to put him in telemetry under observation. Aspiration fall risk precautions are requested CT head was requested. Physical therapy consult was requested. GI prophylaxis DVT prophylaxis are initiated. 09/01/[id number]-urbq-old male with history of CVA involving the right side of the body came to the emergency room with complaints of trouble walking. CT head was negative. PT consult was requested. (2) Lower extremity edema Is this a current diagnosis for this admission?: No Plan: 08/31/2018-patient has a chronic history of bilateral pedal edema and BNP was elevated 1100 chest x-ray shows cardiomegaly most likely has chronic systolic heart failure. Plan to start him on Lasix 40 mg p.o. twice daily. 09/01/2018-patient admitted with bilateral pedal edema he was taking Lasix 60 mg p.o. daily at home presently on Lasix 40 mg IV twice daily. His BNP was elevated at the time of admission. Plan is to repeat the BNP today. (3) Diabetes mellitus type 2 in obese Is this a current diagnosis for this admission?: No Plan: 08/31/2018-patient blood sugar is 415 in the emergency room he has a history of type 2 diabetes mellitus plan to start him on insulin sliding scale before meals and at bedtime and to check hemoglobin tomorrow. We do not have the home medication list available. 09/01/2018-patient blood sugar is 333 this morning he has history of type 2 diabetes mellitus presently on insulin sliding scale before meals and at bedtime he is taking Lantus 30 units in the morning those medications are resumed here dietary consult was requested. (4) Morbid obesity with BMI of 40.0-44.9, adult Is this a current diagnosis for this admission?: No (5) Hypertension Qualifiers: Hypertension type: essential hypertension Qualified Code(s): I10 - Essential (primary) hypertension Is this a current diagnosis for this admission?: No Plan: 08/31/2018-patient history of hypertension essential hypertension blood pressure in the emergency room is 140/85 started on Lasix 40 mg IV twice daily once the home medication list was available we will do the reconciliation. 09/01/2018-patient blood pressure is 141/70 relatively stable. Plan is to continue his home medications. (6) Diarrhea Is this a current diagnosis for this admission?: Yes Plan: 08/31/2018-patient came in with the diarrhea symptoms for the last 1 week stool for WBC, culture, C. difficile and stool for occult blood was requested. 03/04/2018-patient with came with the diarrhea stool for cultures cell count C. difficile was requested so far no thing was sent. (7) Chronic kidney disease, stage 3 Is this a current diagnosis for this admission?: No Plan: 08/31/2018-patient has history of chronic kidney disease stage III creatinine is 1.46 it stable at the baseline which was is around 1.4. 09/01/2018-h/o ckd and creatinine is stable - Time Time Spent with patient: 25-34 minutes Medications reviewed and adjusted accordingly: Yes Anticipated discharge: Home
[2018-09-01] MEDS: PIPERACILLIN SODIUM/TAZOBACTAM 3.375 GM in NORMAL SALINE 100 ML IV SCH ×3 (12:45→23:45)
--- NOTE | 2018-09-01 13:22 | RADIOLOGY REPORT (SQ) ---
EXAM DESCRIPTION: NM LUNG VENT/PERF SCAN COMPLETED DATE/TIME: 09/01/2018 9:57 am REASON FOR STUDY: PE D50.8 OTHER IRON DEFICIENCY ANEMIAS R07.89 OTHER CHEST PAIN E78.5 HYPERLIPID EMIA, UNSPECIFIED COMPARISON: None. RADIONUCLIDE AND DOSE: 5.4 millicuries TC-99m MAA Intravenous 31.4 millicuries TC-99m DTPA Inhaled aerosol TECHNIQUE: Eight views of the lungs acquired post ventilation of DTPA aerosol. Eight matching views of the lungs acquired following injection of MAA. LIMITATIONS: Body habitus. Patient unable to maintain seal during ventilation phase. FINDINGS: VENTILATION: Limited. PERFUSION: Perfusion images with normal homogenous activity and no wedge-shaped or segmental defects. No ventilation-perfusion mismatches. OTHER: No other significant finding. IMPRESSION: Low probability for pulmonary embolus. TECHNICAL DOCUMENTATION: JOB ID: [id number] [employer]- All Rights Reserved Reading location - IP/workstation name: [email or web address]
[2018-09-01] MEDS: GABAPENTIN 300 MG CAPSULE PO SCH ×2 (17:55→21:55)
[2018-09-01] MEDS: SIMVASTATIN 10 MG TABLET PO SCH (21:55)
--- NOTE | 2018-09-01 22:35 | EKG REPORT ---
SEVERITY:- ABNORMAL ECG - SINUS RHYTHM LVH WITH SECONDARY REPOLARIZATION ABNORMALITY : Confirmed by: Adali Winkler MD 01-Sep-2018 22:34:31
--- NOTE | 2018-09-01 23:34 | RADIOLOGY REPORT (SQ) ---
CLINICAL HISTORY: abd pain COMPARISON: None. TECHNIQUE: XR ABDOMEN 1 VIEW (KUB) 09/01/2018 12:00 AM CDT FINDINGS: There is large amount of stool throughout the colon. There are no abnormal radiopaque foreign bodies or abnormal calcifications. There are degenerative changes of both hips, especially on the left. Cholecystectomy was performed. IMPRESSION: Constipation.
[2018-09-02] MEDS: GABAPENTIN 300 MG CAPSULE PO SCH ×3 (05:45→23:16)
[2018-09-02] MEDS: PANTOPRAZOLE SODIUM 40 MG TABLET.DR PO SCH ×2 (05:45→17:30)
[2018-09-02] MEDS: PIPERACILLIN SODIUM/TAZOBACTAM 3.375 GM in NORMAL SALINE 100 ML IV SCH ×4 (05:46→23:17)
[2018-09-02 06:27] LABS: CHOLESTEROL 147.86 mg/dL (0-200); TRIGLYCERIDES 170 mg/dL (<150)
[2018-09-02 06:38] LABS: DIRECT LDL 75 mg/dL (<100)
[2018-09-02] MEDS: INSULIN LISPRO 100 UNIT/ML 3 ML VIAL SUBCUT SCH ×3 (07:50→17:40)
[2018-09-02] MEDS: INSULIN REG, HUMAN 100 UNIT/ML 3 ML VIAL (PYX) SUBCUT SCH ×4 (07:50→23:14)
[2018-09-02] MEDS: VANCOMYCIN HCL 750 MG in DEXTROSE 5%-WATER 250 ML IV SCH ×2 (10:23→23:11)
[2018-09-02] MEDS: MAGNESIUM CITRATE 296 ML BOTTLE PO SCH (10:23)
[2018-09-02] MEDS: CLOPIDOGREL BISULFATE 75 MG TABLET PO SCH (10:24)
[2018-09-02] MEDS: METOPROLOL SUCCINATE 50 MG TAB.SR.24H PO SCH (10:24)
[2018-09-02] MEDS: ASPIRIN 81 MG TABLET, ENT COATED PO SCH (10:24)
[2018-09-02] MEDS: LISINOPRIL 10 MG TABLET PO SCH (10:24)
[2018-09-02] MEDS: FUROSEMIDE 40 MG TABLET PO SCH ×2 (10:24→17:30)
[2018-09-02] MEDS: POTASSIUM CHLORIDE 10 MEQ CAPSULE.ER PO SCH (10:24)
[2018-09-02] MEDS: COLCHICINE 0.6 MG TABLET PO SCH (10:25)
[2018-09-02] MEDS: ENOXAPARIN SODIUM INJ 120 MG/0.8 ML DISP.SYRIN SUBCUT SCH ×2 (10:25→23:12)
[2018-09-02] MEDS: CARBAMAZEPINE 200 MG TABLET PO SCH ×2 (10:25→23:10)
--- NOTE | 2018-09-02 10:55 | PDOC PROGRESS REPORT ---
Subjective Progress Note for:: 09/02/18 Subjective:: 67 year old male with history of right-sided CVA, obesity, type 2 diabetes mellitus, hypertension, coronary disease, osteoarthritis, hyperlipidemia, asthma came to the emergency room with complaints of trouble walking from this morning. As per the patient patient has diarrhea for the last 1 week and not associated with nausea not associated with vomiting no abdominal pains no blood in the stool not associated with fever. Watery stool. No other complaints. Work-up in the emergency room shows WBC count of 13,500 BNP of 1100 with bilateral pedal edema chest x-ray shows cardiomegaly. Because the patient has trouble in walking and diarrhea medical consult was requested for admission. 09/01/2018-this elderly male admitted with trouble walking and also diarrhea. He has a T-max of 102.6 yesterday and troponin dropped from 0.06-0.56. Started on IV vancomycin and Zosyn blood cultures requested cardiology consult was requested he is going to arrange for the echocardiogram today. 09/02/[id number]-bmcf-old male admitted with trouble walking and questionable diarrhea KUB done yesterday indicates constipation. CT head was negative for acute changes. VQ scan was done negative for PE. Troponin was jumped from 0.062.[address] Winkler was requested his plan to do the stress test on Tuesday. No acute events in the last 24 hours. Reason For Visit: UNSTEADY GAIT,FEVER,DIARRHEA,ELEVATED TROPONIN Physical Exam Vital Signs: Temp Pulse Resp BP Pulse Ox 99.1 F 76 18 136/74 H 95 09/02/18 00:17 09/02/18 02:00 09/02/18 00:17 09/02/18 00:17 09/02/18 00:17 Intake & Output 09/01/18 09/02/18 09/03/18 06:59 06:59 06:59 Intake Total 1800 2500 Balance 1800 2500 Weight 120.8 kg 121 kg General appearance: PRESENT: no acute distress, morbidly obese Head exam: PRESENT: atraumatic Eye exam: PRESENT: PERRLA Mouth exam: PRESENT: moist, tongue midline Neck exam: ABSENT: carotid bruit, JVD, lymphadenopathy, thyromegaly Respiratory exam: PRESENT: clear to auscultation michaela. ABSENT: rales, rhonchi, wheezes Cardiovascular exam: PRESENT: RRR. ABSENT: diastolic murmur, rubs, systolic murmur GI/Abdominal exam: PRESENT: normal bowel sounds, soft. ABSENT: distended, guarding, mass, organolmegaly, rebound, tenderness Rectal exam: PRESENT: deferred Extremities exam: PRESENT: full ROM. ABSENT: calf tenderness, clubbing, pedal edema Neurological exam: PRESENT: alert, awake, oriented to person, oriented to place, oriented to time, oriented to situation, CN II-XII grossly intact. ABSENT: motor sensory deficit Psychiatric exam: PRESENT: appropriate affect, normal mood. ABSENT: homicidal ideation, suicidal ideation Results Laboratory Results: 09/01/18 05:06 09/01/18 05:06 09/02/18 05:30 Triglycerides 170 H Cholesterol 147.86 LDL Cholesterol Direct 75 VLDL Cholesterol 34.0 H HDL Cholesterol 30 L 08/31/18 08/31/18 08/31/18 14:47 14:47 22:23 Creatine Kinase 65 CK-MB (CK-2) 0.39 6.09 H Troponin I 0.061 NT-Pro-B Natriuret Pep 1170 H 09/01/18 09/01/18 05:06 10:26 Creatine Kinase CK-MB (CK-2) 6.38 H 7.38 H Troponin I 0.564 NT-Pro-B Natriuret Pep Impressions: Abdomen X-Ray 08/31/18 00:00 IMPRESSION: NON-SPECIFIC BOWEL GAS PATTERN .Few scattered small bowel loops with air fluid levels. No distended large or small bowel loops are identified. Moderate stool burden. Head CT 08/31/18 00:00 IMPRESSION: No hemorrhage. No midline shift. Encephalomalacia in the left occipital lobe, otherwise age appropriate white matter. No evidence for acute infarction. EVIDENCE OF ACUTE STROKE: NO. Chest X-Ray 08/31/18 13:50 IMPRESSION: Cardiomegaly without acute abnormality of the lungs. KUB X-Ray 09/01/18 00:00 IMPRESSION: Constipation. Lung Scan-VQ NM 09/01/18 00:00 IMPRESSION: Low probability for pulmonary embolus. Assessment and Plan - Diagnosis (1) Unable to ambulate Is this a current diagnosis for this admission?: Yes Plan: 08/31/2018-this elderly male with multiple medical problems came to the emergency room with complaints of trouble walking from this morning. He is also has a diarrhea for more than a week. Plan to put him in telemetry under observation. Aspiration fall risk precautions are requested CT head was requested. Physical therapy consult was requested. GI prophylaxis DVT prophylaxis are initiated. 09/01/[id number]-osoh-old male with history of CVA involving the right side of the body came to the emergency room with complaints of trouble walking. CT head was negative. PT consult was requested. 09/02/2018-patient has history of right-sided CVA hemiparesis. He has a diff iculty in ambulation physical therapy was working with the patient. (2) Lower extremity edema Is this a current diagnosis for this admission?: No Plan: 08/31/2018-patient has a chronic history of bilateral pedal edema and BNP was el evated 1100 chest x-ray shows cardiomegaly most likely has chronic systolic heart failure. Plan to start him on Lasix 40 mg p.o. twice daily. 09/01/2018-patient admitted with bilateral pedal edema he was taking Lasix 60 mg p.o. daily at home presently on Lasix 40 mg IV twice daily. His BNP was amadou vated at the time of admission. Plan is to repeat the BNP today. 09/02/2018-patient came in with lower extremity edema on IV Lasix edema is improving. (3) Diabetes mellitus type 2 in obese Is this a current diagnosis for this admission?: No Plan: 08/31/2018-patient blood sugar is 415 in the emergency room he has a history of type 2 diabetes mellitus plan to start him on insulin sliding scale before meals and at bedtime and to check hemoglobin tomorrow. We do not have the home medication list available. 09/01/2018-patient blood sugar is 333 this morning he has history of type 2 diabetes mellitus presently on insulin sliding scale before meals and at bedtime he is taking Lantus 30 units in the morning those medications are resumed here dietary consult was requested. 09/02/2018-patient's latest blood sugar today is 214. Is presently on Lantus 30 units in the morning and insulin sliding scale before meals and at bedtime. To check for hemoglobin A1c. Hemoglobin A1c came back 7.9. (4) Morbid obesity with BMI of 40.0-44.9, adult Is this a current diagnosis for this admission?: No (5) Hypertension Qualifiers: Hypertension type: essential hypertension Qualified Code(s): I10 - Essential (primary) hypertension Is this a current diagnosis for this admission?: No Plan: 08/31/2018-patient history of hypertension essential hypertension blood pressure in the emergency room is 140/85 started on Lasix 40 mg IV twice daily once the home medication list was available we will do the reconciliation. 09/01/2018-patient blood pressure is 141/70 relatively stable. Plan is to continue his home medications. 09/02/2018-patient blood pressure today is 136/74 relatively controlled. Patient is on Lasix 40 mg IV twice a day. Patient is also on lisinopril 20 mg p.o. daily and metoprolol 100 mg p.o. daily. (6) Diarrhea Is this a current diagnosis for this admission?: Yes Plan: 08/31/2018-patient came in with the diarrhea symptoms for the last 1 week stool for WBC, culture, C. difficile and stool for occult blood was requested. 09/01/2018-patient with came with the diarrhea stool for cultures cell count C. difficile was requested so far no thing was sent. 09/02/2018-patient's diarrhea is resolved unable to get a stool sample for culture and C. difficile testing. (7) Chronic kidney disease, stage 3 Is this a current diagnosis for this admission?: No Plan: 08/31/2018-patient has history of chronic kidney disease stage III creatinine is 1.46 it stable at the baseline which was is around 1.4. 09/01/2018-h/o ckd and creatinine is stable 09/02/2018-patient has history of chronic kidney disease his latest creatinine is 3.12 with a GFR more than 60. - Time Time Spent with patient: 25-34 minutes Medications reviewed and adjusted accordingly: Yes Anticipated discharge: Home
[2018-09-02] MEDS: ACETAMINOPHEN 325 MG TABLET PO PRN (23:10)
[2018-09-02] MEDS: SIMVASTATIN 10 MG TABLET PO SCH (23:17)
[2018-09-03] MEDS: GABAPENTIN 300 MG CAPSULE PO SCH ×3 (06:25→22:10)
[2018-09-03] MEDS: PANTOPRAZOLE SODIUM 40 MG TABLET.DR PO SCH ×2 (06:25→17:13)
[2018-09-03] MEDS: PIPERACILLIN SODIUM/TAZOBACTAM 3.375 GM in NORMAL SALINE 100 ML IV SCH (06:25)
[2018-09-03] MEDS: MAGNESIUM CITRATE 296 ML BOTTLE PO SCH (09:10)
[2018-09-03] MEDS: INSULIN LISPRO 100 UNIT/ML 3 ML VIAL SUBCUT SCH ×3 (09:13→17:09)
[2018-09-03] MEDS: INSULIN REG, HUMAN 100 UNIT/ML 3 ML VIAL (PYX) SUBCUT SCH ×4 (09:14→22:08)
[2018-09-03] MEDS: LISINOPRIL 10 MG TABLET PO SCH (09:15)
[2018-09-03] MEDS: ASPIRIN 81 MG TABLET, ENT COATED PO SCH (09:15)
[2018-09-03] MEDS: METOPROLOL SUCCINATE 50 MG TAB.SR.24H PO SCH (09:15)
[2018-09-03] MEDS: CLOPIDOGREL BISULFATE 75 MG TABLET PO SCH (09:16)
[2018-09-03] MEDS: CARBAMAZEPINE 200 MG TABLET PO SCH ×2 (09:16→22:10)
[2018-09-03] MEDS: POTASSIUM CHLORIDE 10 MEQ CAPSULE.ER PO SCH (09:16)
[2018-09-03] MEDS: FUROSEMIDE 40 MG TABLET PO SCH ×2 (09:17→17:13)
[2018-09-03] MEDS: COLCHICINE 0.6 MG TABLET PO SCH (09:18)
[2018-09-03] MEDS: ENOXAPARIN SODIUM INJ 120 MG/0.8 ML DISP.SYRIN SUBCUT SCH ×2 (09:19→22:14)
--- NOTE | 2018-09-03 11:17 | PDOC PROGRESS REPORT ---
Subjective Subjective:: 67 year old male with history of right-sided CVA, obesity, type 2 diabetes mellitus, hypertension, coronary disease, osteoarthritis, hyperlipidemia, asthma came to the emergency room with complaints of trouble walking from this morning. As per the patient patient has diarrhea for the last 1 week and not associated with nausea not associated with vomiting no abdominal pains no blood in the stool not associated with fever. Watery stool. No other complaints. Work-up in the emergency room shows WBC count of 13,500 BNP of 1100 with bilateral pedal edema chest x-ray shows cardiomegaly. Because the patient has trouble in walking and diarrhea medical consult was requested for admission. 09/01/2018-this elderly male admitted with trouble walking and also diarrhea. He has a T-max of 102.6 yesterday and troponin dropped from 0.06-0.56. Started on IV vancomycin and Zosyn blood cultures requested cardiology consult was requested he is going to arrange for the echocardiogram today. 09/[id number]-old male admitted with trouble walking and questionable diarrhea KUB done yesterday indicates constipation. CT head was negative for acute changes. VQ scan was done negative for PE. Troponin was jumped from 0.062.[address] Winkler was requested his plan to do the stress test on Tuesday. No acute events in the last 24 hours. 09/[id number]-old male admitted for trouble walking and diarrhea initially was severely constipated since yesterday having the loose stools C. difficile ca me back positive he was started on p.o. vancomycin. His fever is gone. No acute events in the last [address] Winkler is planning to do the stress test Tuesday. Reason For Visit: UNSTEADY GAIT,FEVER,DIARRHEA,ELEVATED TROPONIN Physical Exam Vital Signs: Temp Pulse Resp BP Pulse Ox 98.4 F 80 20 148/67 H 94 09/03/18 07:11 09/03/18 07:11 09/03/18 07:11 09/03/18 07:11 09/03/18 07:11 Intake & Output 09/02/18 09/03/18 09/04/18 06:59 06:59 06:59 Intake Total 2500 2020 Balance 2500 2019 Weight 121 kg 121 kg General appearance: PRESENT: no acute distress Head exam: PRESENT: atraumatic Eye exam: PRESENT: PERRLA Mouth exam: PRESENT: moist, tongue midline Teeth exam: PRESENT: poor dentation Neck exam: ABSENT: carotid bruit, JVD, lymphadenopathy, thyromegaly Respiratory exam: PRESENT: clear to auscultation michaela. ABSENT: rales, rhonchi, wheezes Cardiovascular exam: PRESENT: RRR. ABSENT: diastolic murmur, rubs, systolic murmur GI/Abdominal exam: PRESENT: other - Obese abdomen with bowel sounds are present. Extremities exam: PRESENT: full ROM. ABSENT: calf tenderness, clubbing, pedal edema Neurological exam: PRESENT: alert, awake, oriented to person, oriented to place, oriented to time, oriented to situation, CN II-XII grossly intact. ABSENT: motor sensory deficit Psychiatric exam: PRESENT: appropriate affect, normal mood. ABSENT: homicidal ideation, suicidal ideation Results Laboratory Results: 09/01/18 05:06 09/01/18 05:06 09/02/18 09/02/18 14:00 14:00 Stool Occult Blood NEGATIVE Stool for White Cells NO WBCs SEEN 08/31/18 14:47 Clean Catch Midstream Urine Culture - Final NO GROWTH 2 DAYS 08/31/18 08/31/18 08/31/18 14:47 14:47 22:23 Creatine Kinase 65 CK-MB (CK-2) 0.39 6.09 H Troponin I 0.061 NT-Pro-B Natriuret Pep 1170 H 09/01/18 09/01/18 05:06 10:26 Creatine Kinase CK-MB (CK-2) 6.38 H 7.38 H Troponin I 0.564 NT-Pro-B Natriuret Pep Impressions: Abdomen X-Ray 08/31/18 00:00 IMPRESSION: NON-SPECIFIC BOWEL GAS PATTERN .Few scattered small bowel loops with air fluid levels. No distended large or small bowel loops are identified. Moderate stool burden. Head CT 08/31/18 00:00 IMPRESSION: No hemorrhage. No midline shift. Encephalomalacia in the left occipital lobe, otherwise age appropriate white matter. No evidence for acute infarction. EVIDENCE OF ACUTE STROKE: NO. Chest X-Ray 08/31/18 13:50 IMPRESSION: Cardiomegaly without acute abnormality of the lungs. KUB X-Ray 09/01/18 00:00 IMPRESSION: Constipation. Lung Scan-VQ NM 09/01/18 00:00 IMPRESSION: Low probability for pulmonary embolus. Assessment and Plan - Diagnosis (1) Unable to ambulate Is this a current diagnosis for this admission?: Yes Plan: 08/31/2018-this elderly male with multiple medical problems came to the emergency room with complaints of trouble walking from this morning. He is also has a diarrhea for more than a week. Plan to put him in telemetry under observation. Aspiration fall risk precautions are requested CT head was requested. Physical therapy consult was requested. GI prophylaxis DVT prophylaxis are initiated. 09/[id number]-eepz-old male with history of CVA involving the right side of the body came to the emergency room with complaints of trouble walking. CT head was negative. PT consult was requested. 09/02/2018-patient has history of right-sided CVA hemiparesis. He has a difficulty in ambulation physical therapy was working with the patient. 09/03/2018-patient has history of right-sided CVA. Brought into the hospital for unable to ambulate PT consult was requested. (2) Lower extremity edema Is this a current diagnosis for this admission?: No Plan: 08/31/2018-patient has a chronic history of bilateral pedal edema and BNP was elevated 1100 chest x-ray shows cardiomegaly most likely has chronic systolic heart failure. Plan to start him on Lasix 40 mg p.o. twice daily. 09/01/2018-patient admitted with bilateral pedal edema he was taking Lasix 60 mg p.o. daily at home presently on Lasix 40 mg IV twice daily. His BNP was elevated at the time of admission. Plan is to repeat the BNP today. 09/02/2018-patient came in with lower extremity edema on IV Lasix edema is improving. 09/03/2018-patient admitted with lower extremity edema presently IV Lasix and edema is improving. (3) Diabetes mellitus type 2 in obese Is this a current diagnosis for this admission?: No Plan: 08/31/2018-patient blood sugar is 415 in the emergency room he has a history of type 2 diabetes mellitus plan to start him on insulin sliding scale before meals and at bedtime and to check hemoglobin tomorrow. We do not have the home medication list available. 09/01/2018-patient blood sugar is 333 this morning he has history of type 2 diabetes mellitus presently on insulin sliding scale before meals and at bedtime he is taking Lantus 30 units in the morning those medications are resumed here dietary consult was requested. 09/02/2018-patient's latest blood sugar today is 214. Is presently on Lantus 30 units in the morning and insulin sliding scale before meals and at bedtime. To check for hemoglobin A1c. Hemoglobin A1c came back 7.9. 09/03/2018-patient latest blood sugar is 253 3. Presently on Lantus 30 units in the morning and sliding scale. Hemoglobin A1c 7.9. (4) Morbid obesity with BMI of 40.0-44.9, adult Is this a current diagnosis for this admission?: No (5) Hypertension Qualifiers: Hypertension type: essential hypertension Qualified Code(s): I10 - Essential (primary) hypertension Is this a current diagnosis for this admission?: No Plan: 08/31/2018-patient history of hypertension essential hypertension blood pressure in the emergency room is 140/85 started on Lasix 40 mg IV twice daily once the home medication list was available we will do the reconciliation. 09/01/2018-patient blood pressure is 141/70 relatively stable. Plan is to continue his home medications. 09/02/2018-patient blood pressure today is 136/74 relatively controlled. Patient is on Lasix 40 mg IV twice a day. Patient is also on lisinopril 20 mg p.o. daily and metoprolol 100 mg p.o. daily. 09/03/2018-patient's latest blood pressure is 148/67. Stable. (6) Diarrhea Is this a current diagnosis for this admission?: Yes Plan: 08/31/2018-patient came in with the diarrhea symptoms for the last 1 week stool for WBC, culture, C. difficile and stool for occult blood was requested. 09/01/2018-patient with came with the diarrhea stool for cultures cell count C. difficile was requested so far no thing was sent. 09/02/2018-patient's diarrhea is resolved unable to get a stool sample for culture and C. difficile testing. 09/03/2018-stool culture came back positive for C. difficile. On p.o. vancomycin. Contact isolation's are implemented. (7) Chronic kidney disease, stage 3 Is this a current diagnosis for this admission?: No - Time Time Spent with patient: 25-34 minutes Medications reviewed and adjusted accordingly: Yes Anticipated discharge: SNF
[2018-09-03] MEDS: VANCOMYCIN HCL INJ 500 MG VIAL PO SCH ×2 (13:01→17:14)
[2018-09-03 14:07] LABS: ABSOLUTE EOSINOPHILS # (AUTO) 0.3 10^3/uL (0.0-0.6); ABSOLUTE LYMPHOCYTES (AUTO) 1.1 10^3/uL (0.5-4.7); ABSOLUTE MONOCYTES (AUTO) 0.4 10^3/uL (0.1-1.4); ABSOLUTE NEUT (AUTO) 6.1 10^3/uL (1.7-8.2); BASOPHILS % (AUTO) 0.2 % (0-2); EOSINOPHILS % (AUTO) 4.1 % (0-6); HEMATOCRIT 32.3 % (37.9-51.0); HEMOGLOBIN 11.1 g/dL (13.5-17.0); LYMPHOCYTES % (AUTO) 13.9 % (13-45); MEAN CORPUSCULAR HEMOGLOBIN 30.8 pg (27.0-33.4); MEAN CORPUSCULAR HGB CONC 34.4 g/dL (32.0-36.0); MEAN CORPUSCULAR VOLUME 90 fl (80-97); MONOCYTES % (AUTO) 5.2 % (3-13); PLATELET COUNT 276 10^3/uL (150-450); RED BLOOD COUNT 3.61 10^6/uL (4.35-5.55); RED CELL DISTRIBUTION WIDTH 12.9 % (11.5-14.0); SEGMENTED NEUTROPHILS % (AUTO) 76.6 % (42-78); TOTAL CELLS COUNTED % (AUTO) 100 %; WHITE BLOOD COUNT 7.9 10^3/uL (4.0-10.5)
[2018-09-03 14:20] LABS: ALANINE AMINOTRANSFERASE 43 U/L (21-72); ALBUMIN 3.1 g/dL (3.5-5.0); ALKALINE PHOSPHATASE 58 U/L (38-126); ANION GAP 11 (5-19); ASPARTATE AMINO TRANSFERASE 57 U/L (17-59); BILIRUBIN,DIRECT 0.3 mg/dL (0.0-0.4); BILIRUBIN,TOTAL 0.3 mg/dL (0.2-1.3); BLOOD UREA NITROGEN 36 mg/dL (7-20); CALCIUM 9.2 mg/dL (8.4-10.2); CARBON DIOXIDE 29 mmol/L (22-30); CHLORIDE 100 mmol/L (98-107); GLUCOSE 287 mg/dL (75-110); POTASSIUM 4.4 mmol/L (3.6-5.0); SODIUM 139.6 mmol/L (137-145)
[2018-09-03 14:24] LABS: VANCOMYCIN,TROUGH 11.6 ug/mL (5.0-20.0)
[2018-09-03] MEDS: SIMVASTATIN 10 MG TABLET PO SCH (22:11)
[2018-09-04] MEDS: VANCOMYCIN HCL INJ 500 MG VIAL PO SCH ×5 (00:24→23:13)
[2018-09-04 04:53] LABS: HEMATOCRIT 34.8 % (37.9-51.0); MEAN CORPUSCULAR HEMOGLOBIN 31.1 pg (27.0-33.4); MEAN CORPUSCULAR HGB CONC 34.4 g/dL (32.0-36.0); MEAN CORPUSCULAR VOLUME 90 fl (80-97); PLATELET COUNT 305 10^3/uL (150-450); RED BLOOD COUNT 3.86 10^6/uL (4.35-5.55); RED CELL DISTRIBUTION WIDTH 13.1 % (11.5-14.0)
[2018-09-04] MEDS: PANTOPRAZOLE SODIUM 40 MG TABLET.DR PO SCH ×2 (06:09→18:05)
[2018-09-04] MEDS: GABAPENTIN 300 MG CAPSULE PO SCH ×3 (06:09→21:45)
[2018-09-04] MEDS: INSULIN REG, HUMAN 100 UNIT/ML 3 ML VIAL (PYX) SUBCUT SCH ×4 (07:56→21:46)
[2018-09-04] MEDS: MAGNESIUM CITRATE 296 ML BOTTLE PO SCH (09:47)
[2018-09-04] MEDS: ASPIRIN 81 MG TABLET, ENT COATED PO SCH (09:52)
[2018-09-04] MEDS: POTASSIUM CHLORIDE 10 MEQ CAPSULE.ER PO SCH (09:52)
[2018-09-04] MEDS: METOPROLOL SUCCINATE 50 MG TAB.SR.24H PO SCH (09:52)
[2018-09-04] MEDS: ENOXAPARIN SODIUM INJ 120 MG/0.8 ML DISP.SYRIN SUBCUT SCH ×2 (09:52→21:46)
[2018-09-04] MEDS: CLOPIDOGREL BISULFATE 75 MG TABLET PO SCH (09:53)
[2018-09-04] MEDS: CARBAMAZEPINE 200 MG TABLET PO SCH ×2 (09:53→21:45)
[2018-09-04] MEDS: FUROSEMIDE 40 MG TABLET PO SCH ×2 (09:53→18:05)
[2018-09-04] MEDS: COLCHICINE 0.6 MG TABLET PO SCH (09:53)
[2018-09-04] MEDS: LISINOPRIL 10 MG TABLET PO SCH (09:53)
[2018-09-04] MEDS ORDERED: INSULIN LISPRO 100 UNIT/ML 3 ML VIAL SUBCUT SCH (10:00)
--- NOTE | 2018-09-04 11:28 | PDOC PROGRESS REPORT ---
Subjective Progress Note for:: 09/04/18 Subjective:: 67 year old male with history of right-sided CVA, obesity, type 2 diabetes mellitus, hypertension, coronary disease, osteoarthritis, hyperlipidemia, asthma came to the emergency room with complaints of trouble walking from this morning. As per the patient patient has diarrhea for the last 1 week and not associated with nausea not associated with vomiting no abdominal pains no blood in the stool not associated with fever. Watery stool. No other complaints. Work-up in the emergency room shows WBC count of 13,500 BNP of 1100 with bilateral pedal edema chest x-ray shows cardiomegaly. Because the patient has trouble in walking and diarrhea medical consult was requested for admission. 09/01/2018-this elderly male admitted with trouble walking and also diarrhea. He has a T-max of 102.6 yesterday and troponin dropped from 0.06-0.56. Started on IV vancomycin and Zosyn blood cultures requested cardiology consult was requested he is going to arrange for the echocardiogram today. 09/[id number]-old male admitted with trouble walking and questionable diarrhea KUB done yesterday indicates constipation. CT head was negative for acute changes. VQ scan was done negative for PE. Troponin was jumped from 0.062.[address] Winkler was requested his plan to do the stress test on Tuesday. No acute events in the last 24 hours. 09/[id number]-eyze-old male admitted for trouble walking and diarrhea initially was severely constipated since yesterday having the loose stools C. difficile came back positive he was started on p.o. vancomycin. His fever is gone. No acute events in the last [address] Winkler is planning to do the stress test Tuesday. 09/04/[id number]-gmrv-old male admitted with trouble walking and diarrhea stool culture came back positive for C. difficile. Presently on p.o. vancomycin. Troponin today came back as 0.17. troponin is trending down. Reason For Visit: UNSTEADY GAIT,FEVER,DIARRHEA,ELEVATED TROPONIN Physical Exam Vital Signs: Temp Pulse Resp BP Pulse Ox 98.1 F 82 20 132/59 H 95 09/04/18 07:32 09/04/18 07:32 09/04/18 07:32 09/04/18 07:32 07/15/19 07:32 Intake & Output 09/03/18 09/04/18 09/05/18 06:59 06:59 06:59 Intake Total 2120 1520 Balance 2120 1520 Weight 121 kg 121 kg General appearance: PRESENT: no acute distress Head exam: PRESENT: atraumatic Eye exam: PRESENT: PERRLA Mouth exam: PRESENT: moist, tongue midline Neck exam: ABSENT: carotid bruit, JVD, lymphadenopathy, thyromegaly Respiratory exam: PRESENT: clear to auscultation michaela. ABSENT: rales, rhonchi, wheezes GI/Abdominal exam: PRESENT: normal bowel sounds, soft. ABSENT: distended, guarding, mass, organolmegaly, rebound, tenderness Rectal exam: PRESENT: deferred Extremities exam: PRESENT: full ROM. ABSENT: calf tenderness, clubbing, pedal edema Neurological exam: PRESENT: alert, awake, oriented to person, oriented to place, oriented to time, oriented to situation, CN II-XII grossly intact. ABSENT: motor sensory deficit Results Laboratory Results: 09/04/18 04:26 09/03/18 13:24 09/03/18 09/03/18 09/03/18 13:24 13:24 13:24 WBC 7.9 RBC 3.61 L Hgb 11.1 L Hct 32.3 L MCV 90 MCH 30.8 MCHC 34.4 RDW 12.9 Plt Count 276 Seg Neutrophils % 76.6 Lymphocytes % 13.9 Monocytes % 5.2 Eosinophils % 4.1 Basophils % 0.2 Absolute Neutrophils 6.1 Absolute Lymphocytes 1.1 Absolute Monocytes 0.4 Absolute Eosinophils 0.3 Absolute Basophils 0.0 Sodium 139.6 Potassium 4.4 Chloride 100 Carbon Dioxide 29 Anion Gap 11 BUN 36 H Creatinine 1.37 H 1.37 H Est GFR ( Amer) > 60 > 60 Est GFR (Non-Af Amer) 52 L 52 L Glucose 287 H Calcium 9.2 Magnesium 1.9 Total Bilirubin 0.3 AST 57 ALT 43 Alkaline Phosphatase 58 Total Protein 6.0 L Albumin 3.1 L Stool Occult Blood 09/04/18 09/04/18 03:45 04:26 WBC 8.0 RBC 3.86 L Hgb 12.0 L Hct 34.8 L MCV 90 MCH 31.1 MCHC 34.4 RDW 13.1 Plt Count 305 Seg Neutrophils % Lymphocytes % Monocytes % Eosinophils % Basophils % Absolute Neutrophils Absolute Lymphocytes Absolute Monocytes Absolute Eosinophils Absolute Basophils Sodium Potassium Chloride Carbon Dioxide Anion Gap BUN Creatinine Est GFR ( Amer) Est GFR (Non-Af Amer) Glucose Calcium Magnesium Total Bilirubin AST ALT Alkaline Phosphatase Total Protein Albumin Stool Occult Blood NEGATIVE 08/31/18 08/31/18 08/31/18 14:47 14:47 22:23 Creatine Kinase 65 CK-MB (CK-2) 0.39 6.09 H Troponin I 0.061 NT-Pro-B Natriuret Pep 1170 H 09/01/18 09/01/18 09/03/18 05:06 10:26 13:24 Creatine Kinase CK-MB (CK-2) 6.38 H 7.38 H Troponin I 0.564 NT-Pro-B Natriuret Pep 1430 H 09/04/18 09:53 Creatine Kinase CK-MB (CK-2) Troponin I 0.172 NT-Pro-B Natriuret Pep Impressions: Abdomen X-Ray 08/31/18 00:00 IMPRESSION: NON-SPECIFIC BOWEL GAS PATTERN .Few scattered small bowel loops with air fluid levels. No distended large or small bowel loops are identified. Moderate stool burden. Head CT 08/31/18 00:00 IMPRESSION: No hemorrhage. No midline shift. Encephalomalacia in the left occipital lobe, otherwise age appropriate white matter. No evidence for acute infarction. EVIDENCE OF ACUTE STROKE: NO. Chest X-Ray 08/31/18 13:50 IMPRESSION: Cardiomegaly without acute abnormality of the lungs. KUB X-Ray 09/01/18 00:00 IMPRESSION: Constipation. Lung Scan-VQ NM 09/01/18 00:00 IMPRESSION: Low probability for pulmonary embolus. Assessment and Plan - Diagnosis (1) Unable to ambulate Is this a current diagnosis for this admission?: Yes Plan: 08/31/2018-this elderly male with multiple medical problems came to the emergency room with complaints of trouble walking from this morning. He is also has a diarrhea for more than a week. Plan to put him in telemetry under observation. Aspiration fall risk precautions are requested CT head was requested. Physical therapy consult was requested. GI prophylaxis DVT prophylaxis are initiated. 09/01/[id number]-[id number]-old male with history of CVA involving the right side of the body came to the emergency room with complaints of trouble walking. CT head was negative. PT consult was requested. 09/02/2018-patient has history of right-sided CVA hemiparesis. He has a difficulty in ambulation physical therapy was working with the patient. 09/03/2018-patient has history of right-sided CVA. Brought into the hospital for unable to ambulate PT consult was requested. 09/04/2018-patient has history of right-sided CVA physical therapy consult was requested for further management. (2) Lower extremity edema Is this a current diagnosis for this admission?: No Plan: 08/31/2018-patient has a chronic history of bilateral pedal edema and BNP was elevated 1100 chest x-ray shows cardiomegaly most likely has chronic systolic heart failure. Plan to start him on Lasix 40 mg p.o. twice daily. 09/01/2018-patient admitted with bilateral pedal edema he was taking Lasix 60 mg p.o. daily at home presently on Lasix 40 mg IV twice daily. His BNP was elevated at the time of admission. Plan is to repeat the BNP today. 09/02/2018-patient came in with lower extremity edema on IV Lasix edema is improving. 09/03/2018-patient admitted with lower extremity edema presently IV Lasix and edema is improving. 03/07/2018-patient is receiving IV Lasix his edema is improving. (3) Diabetes mellitus type 2 in obese Is this a current diagnosis for this admission?: No Plan: 08/31/2018-patient blood sugar is 415 in the emergency room he has a history of type 2 diabetes mellitus plan to start him on insulin sliding scale before meals and at bedtime and to check hemoglobin tomorrow. We do not have the home medication list available. 09/01/2018-patient blood sugar is 333 this morning he has history of type 2 diabetes mellitus presently on insulin sliding scale before meals and at bedtime he is taking Lantus 30 units in the morning those medications are resumed here dietary consult was requested. 09/02/2018-patient's latest blood sugar today is 214. Is presently on Lantus 30 units in the morning and insulin sliding scale before meals and at bedtime. To check for hemoglobin A1c. Hemoglobin A1c came back 7.9. 09/03/2018-patient latest blood sugar is 253 . Presently on Lantus 30 units in the morning and sliding scale. Hemoglobin A1c 7.9. 09/04/2018-patient blood sugar this morning is 416 he is on Lantus 30 units in the morning and insulin sliding scale hemoglobin A1c 7.9 14 units of insulin today and Lantus was changed to 20 units twice a day. (4) Morbid obesity with BMI of 40.0-44.9, adult Is this a current diagnosis for this admission?: No Plan: 08/31/2018-patient's BMI is more than 43 diet exercise weight loss lifestyle modifications are discussed with the patient. (5) Hypertension Qualifiers: Hypertension type: essential hypertension Qualified Code(s): I10 - Essentia l (primary) hypertension Is this a current diagnosis for this admission?: No Plan: 08/31/2018-patient history of hypertension essential hypertension blood pressure in the emergency room is 140/85 started on Lasix 40 mg IV twice daily once the h ome medication list was available we will do the reconciliation. 09/01/2018-patient blood pressure is 141/70 relatively stable. Plan is to continue his home medications. 09/02/2018-patient blood pressure today is 136/74 relatively controlled. Patient is on Lasix 40 mg IV twice a day. Patient is also on lisinopril 20 mg p.o. daily and metoprolol 100 mg p.o. daily. 09/03/2018-patient's latest blood pressure is 148/67. Stable. (6) Diarrhea Is this a current diagnosis for this admission?: Yes Plan: 08/31/2018-patient came in with the diarrhea symptoms for the last 1 week stool for WBC, culture, C. difficile and stool for occult blood was requested. 09/01/2018-patient with came with the diarrhea stool for cultures cell count C. difficile was requested so far no thing was sent. 09/02/2018-patient's diarrhea is resolved unable to get a stool sample for culture and C. difficile testing. 09/03/2018-stool culture came back positive for C. difficile. On p.o. vancomycin. Contact isolation's are implemented. (7) Chronic kidney disease, stage 3 Is this a current diagnosis for this admission?: No - Time Time Spent with patient: 25-34 minutes Medications reviewed and adjusted accordingly: Yes Anticipated discharge: SNF
[2018-09-04] MEDS: ACETAMINOPHEN 325 MG TABLET PO PRN (16:51)
[2018-09-04] MEDS: INSULIN LISPRO 100 UNIT/ML 3 ML VIAL SUBCUT SCH (18:54)
[2018-09-04 19:35] LABS: APPEARANCE,URINE CLEAR; BILIRUBIN,URINE NEGATIVE (NEGATIVE); COLOR,URINE YELLOW; GLUCOSE, URINE >=500 mg/dL (NEGATIVE); KETONES,URINE NEGATIVE (NEGATIVE); LEUKOCYTE ESTERASE,URINE NEGATIVE (NEGATIVE); NITRITE,URINE NEGATIVE (NEGATIVE); PROTEIN,URINE NEGATIVE (NEGATIVE); UROBILINOGEN,URINE NEGATIVE mg/dL (<2.0)
[2018-09-04] MEDS: SIMVASTATIN 10 MG TABLET PO SCH (21:45)
[2018-09-05] MEDS: VANCOMYCIN HCL INJ 500 MG VIAL PO SCH ×3 (05:20→17:21)
[2018-09-05] MEDS: GABAPENTIN 300 MG CAPSULE PO SCH ×3 (05:21→22:28)
[2018-09-05] MEDS: PANTOPRAZOLE SODIUM 40 MG TABLET.DR PO SCH ×2 (05:21→17:22)
[2018-09-05] MEDS: INSULIN REG, HUMAN 100 UNIT/ML 3 ML VIAL (PYX) SUBCUT SCH ×4 (07:28→22:26)
[2018-09-05] MEDS: MAGNESIUM CITRATE 296 ML BOTTLE PO SCH (10:05)
[2018-09-05] MEDS: ENOXAPARIN SODIUM INJ 120 MG/0.8 ML DISP.SYRIN SUBCUT SCH ×2 (10:23→22:27)
[2018-09-05] MEDS: POTASSIUM CHLORIDE 10 MEQ CAPSULE.ER PO SCH (10:24)
[2018-09-05] MEDS: COLCHICINE 0.6 MG TABLET PO SCH (10:24)
[2018-09-05] MEDS: INSULIN LISPRO 100 UNIT/ML 3 ML VIAL SUBCUT SCH ×2 (10:24→17:22)
[2018-09-05] MEDS: LISINOPRIL 10 MG TABLET PO SCH (10:25)
[2018-09-05] MEDS: CLOPIDOGREL BISULFATE 75 MG TABLET PO SCH (10:25)
[2018-09-05] MEDS: FUROSEMIDE 40 MG TABLET PO SCH ×2 (10:25→17:22)
[2018-09-05] MEDS: CARBAMAZEPINE 200 MG TABLET PO SCH ×2 (10:25→22:28)
[2018-09-05] MEDS: ASPIRIN 81 MG TABLET, ENT COATED PO SCH (10:25)
[2018-09-05] MEDS: METOPROLOL SUCCINATE 50 MG TAB.SR.24H PO SCH (10:25)
[2018-09-05] MEDS ORDERED: MORPHINE SULFATE 10 MG/ML INJ IV ONE (14:00)
[2018-09-05 14:06] LABS: HEMATOCRIT 36.1 % (37.9-51.0); HEMOGLOBIN 12.3 g/dL (13.5-17.0); MEAN CORPUSCULAR HEMOGLOBIN 30.9 pg (27.0-33.4); MEAN CORPUSCULAR HGB CONC 34.1 g/dL (32.0-36.0); MEAN CORPUSCULAR VOLUME 91 fl (80-97); PLATELET COUNT 342 10^3/uL (150-450); RED BLOOD COUNT 3.99 10^6/uL (4.35-5.55); RED CELL DISTRIBUTION WIDTH 13.2 % (11.5-14.0); WHITE BLOOD COUNT 8.2 10^3/uL (4.0-10.5)
[2018-09-05 14:15] LABS: ANION GAP 11 (5-19); BLOOD UREA NITROGEN 44 mg/dL (7-20); CALCIUM 9.7 mg/dL (8.4-10.2); CARBON DIOXIDE 31 mmol/L (22-30); CHLORIDE 94 mmol/L (98-107); GLUCOSE 374 mg/dL (75-110); SODIUM 136.3 mmol/L (137-145)
[2018-09-05 14:51] LABS: ABSOLUTE LYMPHOCYTES# (MANUAL) 2.3 10^3/uL (0.5-4.7); ABSOLUTE MONOCYTES # (MANUAL) 0.3 10^3/uL (0.1-1.4); BASOPHILS % (MANUAL) 0 % (0-2); EOSINOPHILS % (MANUAL) 7 % (0-6); LYMPHOCYTES % (MANUAL) 28 % (13-45); METAMYELOCYTES % (MANUAL) 2 % (0); MONOCYTES % (MANUAL) 4 % (3-13); OVALOCYTES SLIGHT; PLATELET COMMENT ADEQUATE; POIKILOCYTOSIS SLIGHT; POLYCHROMASIA SLIGHT; SEGMENTED NEUTROPHILS % (MAN) 59 % (42-78); TOTAL CELLS COUNTED 100
--- NOTE | 2018-09-05 16:46 | PDOC PROGRESS REPORT ---
Subjective Progress Note for:: 09/05/18 Subjective:: This is a 67 year old male with history of right-sided CVA, obesity, type 2 diabetes mellitus, hypertension, coronary disease, osteoarthritis, hyperlipidemia, asthma came to the emergency room with complaints of trouble walking from this morning and diarrhea for a week. He was noted to have leukocytosis and tested positive for C. difficile. He was also noted to have elevated troponin and was scheduled for a stress test. No acute event overnight. He continues to improve. He says that his stools are becoming more formed this morning. His stress test has been rescheduled for tomorrow morning. He is tolerating diet well. Denies abdominal pain. Denies chest pain or shortness of breath. PT has evaluated the patient and has recommended SNF placement. Reason For Visit: UNSTEADY GAIT,FEVER,DIARRHEA,ELEVATED TROPONIN Physical Exam Vital Signs: Temp Pulse Resp BP Pulse Ox 98.1 F 69 13 145/80 H 97 09/05/18 12:20 09/05/18 14:00 09/05/18 12:20 09/05/18 12:20 09/05/18 12:20 Intake & Output 09/04/18 09/05/18 09/06/18 06:59 06:59 06:59 Intake Total 1520 497 Balance 1520 497 Weight 266 lb 12.149 oz 268 lb 15.423 oz General appearance: PRESENT: no acute distress, well-developed, well-nourished Head exam: PRESENT: atraumatic, normocephalic Eye exam: PRESENT: conjunctiva pink, EOMI, PERRLA. ABSENT: scleral icterus Ear exam: PRESENT: normal external ear exam Mouth exam: PRESENT: moist, tongue midline Neck exam: ABSENT: carotid bruit, JVD, lymphadenopathy, thyromegaly Respiratory exam: PRESENT: clear to auscultation michaela. ABSENT: rales, rhonchi, wheezes Cardiovascular exam: PRESENT: RRR. ABSENT: diastolic murmur, rubs, systolic murmur Pulses: PRESENT: normal dorsalis pedis pul GI/Abdominal exam: PRESENT: normal bowel sounds, soft. ABSENT: distended, guarding, mass, organolmegaly, rebound, tenderness Rectal exam: PRESENT: deferred Extremities exam: PRESENT: full ROM. ABSENT: calf tenderness, clubbing, pedal e griselda Neurological exam: PRESENT: alert, awake, oriented to person, oriented to place, oriented to time, oriented to situation, CN II-XII grossly intact Results Laboratory Results: 09/05/18 13:19 09/05/18 13:19 09/04/18 09/05/18 09/05/18 19:10 13:19 13:19 WBC 8.2 RBC 3.99 L Hgb 12.3 L Hct 36.1 L MCV 91 MCH 30.9 MCHC 34.1 RDW 13.2 Plt Count 342 Seg Neutrophils % Not Reportable Lymphocytes % Not Reportable Monocytes % Not Reportable Eosinophils % Not Reportable Basophils % Not Reportable Absolute Neutrophils Not Reportable Absolute Lymphocytes Not Reportable Absolute Monocytes Not Reportable Absolute Eosinophils Not Reportable Absolute Basophils Not Reportable Sodium 136.3 L Potassium 5.0 Chloride 94 L Carbon Dioxide 31 H Anion Gap 11 BUN 44 H Creatinine 1.22 Est GFR ( Amer) > 60 Est GFR (Non-Af Amer) 59 L Glucose 374 H Calcium 9.7 Urine Color YELLOW Urine Appearance CLEAR Urine pH 5.0 Ur Specific Burton 1.010 Urine Protein NEGATIVE Urine Glucose (UA) >=500 H Urine Ketones NEGATIVE Urine Blood NEGATIVE Urine Nitrite NEGATIVE Ur Leukocyte Esterase NEGATIVE Urine WBC (Auto) 1 Urine RBC (Auto) 1 08/31/18 15:50 Blood Blood Culture - Final NO GROWTH IN 5 DAYS 08/31/18 14:47 Blood Blood Culture - Final NO GROWTH IN 5 DAYS 09/02/18 14:00 Stool - Stool - Final 09/02/18 14:00 Stool - Stool Stool Culture - Final NO SALMONELLA, SHIGELLA, CAMPYLOBACTER, OR E.COLI 0157 RECOVERED. NEGATIVE FOR SHIGA TOXINS 1&2. 08/31/18 08/31/18 08/31/18 14:47 14:47 22:23 Creatine Kinase 65 CK-MB (CK-2) 0.39 6.09 H Troponin I 0.061 NT-Pro-B Natriuret Pep 1170 H 09/01/18 09/01/18 09/03/18 05:06 10:26 13:24 Creatine Kinase CK-MB (CK-2) 6.38 H 7.38 H Troponin I 0.564 NT-Pro-B Natriuret Pep 1430 H 09/04/18 09:53 Creatine Kinase CK-MB (CK-2) Troponin I 0.172 NT-Pro-B Natriuret Pep Impressions: Abdomen X-Ray 08/31/18 00:00 IMPRESSION: NON-SPECIFIC BOWEL GAS PATTERN .Few scattered small bowel loops with air fluid levels. No distended large or small bowel loops are identified. Moderate stool burden. Head CT 08/31/18 00:00 IMPRESSION: No hemorrhage. No midline shift. Encephalomalacia in the left occipital lobe, otherwise age appropriate white matter. No evidence for acute infarction. EVIDENCE OF ACUTE STROKE: NO. Chest X-Ray 08/31/18 13:50 IMPRESSION: Cardiomegaly without acute abnormality of the lungs. KUB X-Ray 09/01/18 00:00 IMPRESSION: Constipation. Lung Scan-VQ NM 09/01/18 00:00 IMPRESSION: Low probability for pulmonary embolus. Assessment and Plan - Diagnosis (1) C. difficile diarrhea Is this a current diagnosis for this admission?: Yes Plan: Improving. Continue p.o. vancomycin. (2) Chronic kidney disease, stage 3 Is this a current diagnosis for this admission?: Yes Plan: Avoid nephrotoxic agents. (3) Acute kidney injury Is this a current diagnosis for this admission?: Yes Plan: Improved with IV fluids. Creatinine now down to 1.2. (4) Diabetes mellitus type 2 in obese Is this a current diagnosis for this admission?: Yes Plan: Continue Lantus and sliding scale coverage. (5) Elevated troponin Is this a current diagnosis for this admission?: Yes Plan: Stress test was rescheduled for tomorrow morning. - Time Time Spent with patient: 25-34 minutes
[2018-09-05] MEDS: SIMVASTATIN 10 MG TABLET PO SCH (22:27)
[2018-09-06] MEDS: VANCOMYCIN HCL INJ 500 MG VIAL PO SCH ×4 (00:43→17:08)
[2018-09-06] MEDS: PANTOPRAZOLE SODIUM 40 MG TABLET.DR PO SCH ×2 (05:17→17:08)
[2018-09-06] MEDS: GABAPENTIN 300 MG CAPSULE PO SCH ×3 (05:17→22:01)
[2018-09-06 07:24] LABS: HEMATOCRIT 34.6 % (37.9-51.0); HEMOGLOBIN 11.9 g/dL (13.5-17.0); MEAN CORPUSCULAR HEMOGLOBIN 30.9 pg (27.0-33.4); MEAN CORPUSCULAR HGB CONC 34.4 g/dL (32.0-36.0); MEAN CORPUSCULAR VOLUME 90 fl (80-97); PLATELET COUNT 371 10^3/uL (150-450); RED BLOOD COUNT 3.86 10^6/uL (4.35-5.55); RED CELL DISTRIBUTION WIDTH 13.2 % (11.5-14.0); WHITE BLOOD COUNT 8.9 10^3/uL (4.0-10.5)
[2018-09-06] MEDS: INSULIN REG, HUMAN 100 UNIT/ML 3 ML VIAL (PYX) SUBCUT SCH ×4 (08:11→22:01)
[2018-09-06] MEDS: INSULIN LISPRO 100 UNIT/ML 3 ML VIAL SUBCUT SCH ×3 (08:12→17:08)
[2018-09-06] MEDS: MAGNESIUM CITRATE 296 ML BOTTLE PO SCH (09:21)
[2018-09-06 11:57] LABS: ANION GAP 10 (5-19); BLOOD UREA NITROGEN 49 mg/dL (7-20); CALCIUM 9.4 mg/dL (8.4-10.2); CARBON DIOXIDE 32 mmol/L (22-30); CHLORIDE 94 mmol/L (98-107); GLUCOSE 282 mg/dL (75-110); POTASSIUM 5.2 mmol/L (3.6-5.0); SODIUM 135.8 mmol/L (137-145)
[2018-09-06] MEDS: ENOXAPARIN SODIUM INJ 120 MG/0.8 ML DISP.SYRIN SUBCUT SCH ×2 (12:10→22:00)
[2018-09-06] MEDS: CARBAMAZEPINE 200 MG TABLET PO SCH ×2 (12:11→22:01)
[2018-09-06] MEDS: ASPIRIN 81 MG TABLET, ENT COATED PO SCH (12:11)
[2018-09-06] MEDS: METOPROLOL SUCCINATE 50 MG TAB.SR.24H PO SCH (12:11)
[2018-09-06] MEDS: POTASSIUM CHLORIDE 10 MEQ CAPSULE.ER PO SCH (12:11)
[2018-09-06] MEDS: COLCHICINE 0.6 MG TABLET PO SCH (12:11)
[2018-09-06] MEDS: LISINOPRIL 10 MG TABLET PO SCH (12:12)
[2018-09-06] MEDS: CLOPIDOGREL BISULFATE 75 MG TABLET PO SCH (12:12)
[2018-09-06] MEDS: FUROSEMIDE 40 MG TABLET PO SCH ×2 (12:12→17:08)
[2018-09-06] MEDS ORDERED: REGADENOSON INJ 0.4 MG/5 ML DISP.SYRIN IV ONE (12:33)
--- NOTE | 2018-09-06 14:39 | XCELERA REPORT ---
[address] [address] Transthoracic Echocardiogram Report Name: RUSSELL PARRA Age: 67 yrs Gender: Male : 1950 Patient Status: Inpatient Patient Location: [address] [place] [address] Study Date: 09/03/2018 05:52 PM Height: 66 in Weight: 266 lb BSA: 2.3 m2 Procedure: A two-dimensional transthoracic echocardiogram with color flow Doppler was performed. Study Quality: Poor. The study was non-diagnostic in quality. No definitive statements could be made about this study due to extremely poor acoustic windows. Images were not obtained from all of the standard acoustic windows due to the limited scope of the study. Reason For Study: chest pain History: chest pain. Ordering Physician: JOSE DANIEL CLAROS Performed By: Christopher Jenkins Interpretation Summary Only vásquez seen to br interprtatable is the anteroseptum and posterior vásquez which contract normally.In this one view LVEF is normal at 60%.Cannot comment on other vásquez and cannot ssess valves for stenotic or regurgitant lesions. MMode/2D Measurements & Calculations RVDd: 4.2 cm LVIDd: 5.4 cm FS: 27.3 % Ao root diam: 3.3 cm IVSd: 0.93 cm LVIDs: 3.9 cm EDV(Teich): 141.3 ml Ao root area: 8.3 cm2 LVPWd: 1.2 cm ESV(Teich): 67.0 ml LA dimension: 4.5 cm EF(Teich): 52.6 % Doppler Measurements & Calculations MV E max poly: MV P1/2t max poly: Ao V2 max: LV V1 max P.1 cm/sec 111.3 cm/sec 115.4 cm/sec 2.9 mmHg MV A max poly: MV P1/2t: 61.8 msec Ao max P.3 mmHg LV V1 max: 47.4 cm/sec MVA(P1/2t): 3.6 cm2 85.4 cm/sec MV E/A: 1.5 MV dec slope: 527.5 cm/sec2 MV dec time: 0.20 sec PA V2 max: TR max poly: MV P1/2t-pr_phl: 95.0 cm/sec 225.3 cm/sec 61.8 msec PA max PG: TR max P.3 mmHg 3.6 mmHg Left Ventricle Only vásquez seen to br interprtatable is the anteroseptum and posterior vásquez which contract normally.In this one view LVEF is normal at 60%.Cannot comment on other vásquez and cannot ssess valves for stenotic or regurgitant lesions. : JOSE DANIEL CLAROS > Adali Winkler
--- NOTE | 2018-09-06 18:54 | PDOC PROGRESS REPORT ---
Subjective Progress Note for:: 09/06/18 Subjective:: This is a 67 year old male with history of right-sided CVA, obesity, type 2 diabetes mellitus, hypertension, coronary disease, osteoarthritis, hyperlipidemia, asthma came to the emergency room with complaints of trouble walking from this morning and diarrhea for a week. He was noted to have leukocytosis and tested positive for C. difficile. He was also noted to have elevated troponin and was scheduled for a stress test. He continues to improve. He says that his stools are becoming more formed this morning. His stress test has been rescheduled for tomorrow morning. He is tolerating diet well. Denies abdominal pain. Denies chest pain or shortness of breath. PT has evaluated the patient and has recommended SNF placement. 09/06: No acute event overnight. Denies acute complaints. He says that his stools continue to be more formed today. Denies abdominal pain. did inquire if he had another CVA because he had some left leg weakness which was ne w when he came in. He does have a 4/5 weakness on the left leg. He has a prior right residual weakness from a left sided CVA previously. His CT did not show any acute stroke but did show old left-sided CVA. He does have eye implants and cannot have an MRI. Reason For Visit: UNSTEADY GAIT,FEVER,DIARRHEA,ELEVATED TROPONIN Physical Exam Vital Signs: Temp Pulse Resp BP Pulse Ox 98.2 F 76 28 H 124/86 H 90 L 09/06/18 16:00 09/06/18 16:00 09/06/18 16:00 09/06/18 16:00 09/06/18 16:00 Intake & Output 09/05/18 09/06/18 09/07/18 06:59 06:59 06:59 Intake Total 497 490 480 Balance 497 490 480 Weight 268 lb 15.423 oz 268 lb 15.423 oz General appearance: PRESENT: no acute distress, well-developed, well-nourished Head exam: PRESENT: atraumatic, normocephalic Eye exam: PRESENT: conjunctiva pink, EOMI, PERRLA. ABSENT: scleral icterus Ear exam: PRESENT: normal external ear exam Mouth exam: PRESENT: moist, tongue midline Neck exam: ABSENT: carotid bruit, JVD, lymphadenopathy, thyromegaly Respiratory exam: PRESENT: clear to auscultation michaela. ABSENT: rales, rhonchi, wheezes Cardiovascular exam: PRESENT: RRR. ABSENT: diastolic murmur, rubs, systolic murmur Pulses: PRESENT: normal dorsalis pedis pul GI/Abdominal exam: PRESENT: normal bowel sounds, soft. ABSENT: distended, guarding, mass, organolmegaly, rebound, tenderness Rectal exam: PRESENT: deferred Neurological exam: PRESENT: alert, awake, oriented to person, oriented to place, oriented to time, oriented to situation, CN II-XII grossly intact Results Laboratory Results: 09/06/18 06:44 09/06/18 06:44 09/06/18 09/06/18 09/06/18 06:44 06:44 09:15 WBC 8.9 RBC 3.86 L Hgb 11.9 L Hct 34.6 L MCV 90 MCH 30.9 MCHC 34.4 RDW 13.2 Plt Count 371 Sodium 135.8 L Potassium 5.2 H Chloride 94 L Carbon Dioxide 32 H Anion Gap 10 BUN 49 H Creatinine 1.35 H Est GFR ( Amer) > 60 Est GFR (Non-Af Amer) 53 L Glucose 282 H Calcium 9.4 Stool Occult Blood NEGATIVE 09/01/18 10:26 Blood Blood Culture - Final NO GROWTH IN 5 DAYS 09/01/18 09:41 Blood Blood Culture - Final NO GROWTH IN 5 DAYS 08/31/18 15:50 Blood Blood Culture - Final NO GROWTH IN 5 DAYS 08/31/18 14:47 Blood Blood Culture - Final NO GROWTH IN 5 DAYS 08/31/18 08/31/18 08/31/18 14:47 14:47 22:23 Creatine Kinase 65 CK-MB (CK-2) 0.39 6.09 H Troponin I 0.061 NT-Pro-B Natriuret Pep 1170 H 09/01/18 09/01/18 09/03/18 05:06 10:26 13:24 Creatine Kinase CK-MB (CK-2) 6.38 H 7.38 H Troponin I 0.564 NT-Pro-B Natriuret Pep 1430 H 09/04/18 09:53 Creatine Kinase CK-MB (CK-2) Troponin I 0.172 NT-Pro-B Natriuret Pep Impressions: Abdomen X-Ray 08/31/18 00:00 IMPRESSION: NON-SPECIFIC BOWEL GAS PATTERN .Few scattered small bowel loops with air fluid levels. No distended large or small bowel loops are identified. Moderate stool burden. Head CT 08/31/18 00:00 IMPRESSION: No hemorrhage. No midline shift. Encephalomalacia in the left occipital lobe, otherwise age appropriate white matter. No evidence for acute infarction. EVIDENCE OF ACUTE STROKE: NO. Chest X-Ray 08/31/18 13:50 IMPRESSION: Cardiomegaly without acute abnormality of the lungs. KUB X-Ray 09/01/18 00:00 IMPRESSION: Constipation. Lung Scan-VQ NM 09/01/18 00:00 IMPRESSION: Low probability for pulmonary embolus. Assessment and Plan - Diagnosis (1) C. difficile diarrhea Is this a current diagnosis for this admission?: Yes Plan: Improving. Continue PO vancomycin. (2) Chronic kidney disease, stage 3 Is this a current diagnosis for this admission?: Yes Plan: Avoid nephrotoxic agents. (3) Acute kidney injury Is this a current diagnosis for this admission?: Yes Plan: Improved with IV fluids. (4) Diabetes mellitus type 2 in obese Is this a current diagnosis for this admission?: Yes Plan: Continue Lantus and sliding scale coverage. (5) Elevated troponin Is this a current diagnosis for this admission?: Yes Plan: Await official results of stress test. (6) History of CVA (cerebrovascular accident) Is this a current diagnosis for this admission?: Yes - Time Time Spent with patient: 25-34 minutes
[2018-09-06] MEDS: SIMVASTATIN 10 MG TABLET PO SCH (22:00)
[2018-09-07] MEDS: VANCOMYCIN HCL INJ 500 MG VIAL PO SCH ×4 (00:15→17:07)
[2018-09-07] MEDS: PANTOPRAZOLE SODIUM 40 MG TABLET.DR PO SCH ×2 (05:30→17:07)
[2018-09-07] MEDS: GABAPENTIN 300 MG CAPSULE PO SCH ×2 (05:30→14:18)
[2018-09-07] MEDS: INSULIN LISPRO 100 UNIT/ML 3 ML VIAL SUBCUT SCH ×3 (07:35→17:09)
[2018-09-07] MEDS: INSULIN REG, HUMAN 100 UNIT/ML 3 ML VIAL (PYX) SUBCUT SCH ×3 (07:36→17:11)
[2018-09-07] MEDS: MAGNESIUM CITRATE 296 ML BOTTLE PO SCH (09:17)
[2018-09-07] MEDS: LISINOPRIL 10 MG TABLET PO SCH (09:21)
[2018-09-07] MEDS: FUROSEMIDE 40 MG TABLET PO SCH ×2 (09:21→17:06)
[2018-09-07] MEDS: COLCHICINE 0.6 MG TABLET PO SCH (09:21)
[2018-09-07] MEDS: ASPIRIN 81 MG TABLET, ENT COATED PO SCH (09:21)
[2018-09-07] MEDS: CARBAMAZEPINE 200 MG TABLET PO SCH (09:21)
[2018-09-07] MEDS: METOPROLOL SUCCINATE 50 MG TAB.SR.24H PO SCH (09:21)
[2018-09-07] MEDS: CLOPIDOGREL BISULFATE 75 MG TABLET PO SCH (09:21)
[2018-09-07] MEDS: ENOXAPARIN SODIUM INJ 120 MG/0.8 ML DISP.SYRIN SUBCUT SCH (09:22)
[2018-09-07] MEDS: POTASSIUM CHLORIDE 10 MEQ CAPSULE.ER PO SCH (09:23)
[2018-09-07 10:42] LABS: HEMATOCRIT 34.5 % (37.9-51.0); HEMOGLOBIN 11.7 g/dL (13.5-17.0); MEAN CORPUSCULAR HEMOGLOBIN 30.4 pg (27.0-33.4); MEAN CORPUSCULAR VOLUME 89 fl (80-97); PLATELET COUNT 399 10^3/uL (150-450); RED BLOOD COUNT 3.86 10^6/uL (4.35-5.55); RED CELL DISTRIBUTION WIDTH 13.3 % (11.5-14.0); WHITE BLOOD COUNT 9.1 10^3/uL (4.0-10.5)
[2018-09-07 10:56] LABS: ANION GAP 8 (5-19); BLOOD UREA NITROGEN 56 mg/dL (7-20); CALCIUM 9.2 mg/dL (8.4-10.2); CARBON DIOXIDE 32 mmol/L (22-30); CHLORIDE 94 mmol/L (98-107); GLUCOSE 254 mg/dL (75-110); POTASSIUM 4.3 mmol/L (3.6-5.0); SODIUM 134.4 mmol/L (137-145)
[2018-09-07 11:24] LABS: ABSOLUTE MONOCYTES # (MANUAL) 0.2 10^3/uL (0.1-1.4); BASOPHILS % (MANUAL) 0 % (0-2); EOSINOPHILS % (MANUAL) 2 % (0-6); LYMPHOCYTES % (MANUAL) 33 % (13-45); MONOCYTES % (MANUAL) 2 % (3-13); SEGMENTED NEUTROPHILS % (MAN) 63 % (42-78); TOTAL CELLS COUNTED 100
[2018-09-07 11:25] LABS: PLATELET COMMENT ADEQUATE; PLATELET LARGE PRESENT
[2018-09-07 11:26] LABS: OVALOCYTES SLIGHT
--- NOTE | 2018-09-07 13:10 | PDOC TRANSFER SUMMARY ---
General - Admit/Disc Date/PCP Admission Date/Primary Care Provider: 09/01/18 11:43 THOMAS PELAEZ MD Discharge Date: 09/07/18 - Discharge Diagnosis (1) C. difficile diarrhea Is this a current diagnosis for this admission?: Yes (2) Chronic kidney disease, stage 3 Is this a current diagnosis for this admission?: Yes (3) Acute kidney injury Is this a current diagnosis for this admission?: Yes (4) Diabetes mellitus type 2 in obese Is this a current diagnosis for this admission?: Yes (5) Elevated troponin Is this a current diagnosis for this admission?: Yes (6) History of CVA (cerebrovascular accident) Is this a current diagnosis for this admission?: Yes - Additional Information Resuscitation Status: Full Code Prescriptions: Aspirin [Ecotrin 81 mg EC Tablet] 81 mg PO DAILY #30 tabec Atorvastatin Calcium [Lipitor 40 mg Tablet] 40 mg PO QHS #30 tablet Furosemide [Lasix 20 mg Tablet] 20 mg PO QAM #30 tablet Lisinopril [Prinivil 10 mg Tablet] 20 mg PO DAILY #30 tablet Potassium Chloride [Klor-Con 10 Meq Capsule ER] 10 meq PO DAILY #5 capsule.er Vancomycin HCl 125 mg PO Q6H 5 Days #20 capsule Home Medications: Carbamazepine [Carbamazepine ER] 200 mg PO BID 08/31/18 Clopidogrel Bisulfate [Plavix 75 mg Tablet] 75 mg PO DAILY 08/31/18 Colchicine [Colchicine 0.6 mg Tablet] 0.6 mg PO DAILY 08/31/18 Gabapentin [Neurontin 300 mg Capsule] 300 mg PO Q8 08/31/18 Insulin Aspart [Novolog Flexpen] 30 unit SQ AC 08/31/18 Metformin HCl [Glucophage XR 500 mg Tablet] 500 mg PO QPM 08/31/18 Metoprolol Succinate [Toprol XL 100 mg Tablet] 100 mg PO DAILY 08/31/18 Aspirin [Ecotrin 81 mg EC Tablet] 81 mg PO DAILY #30 tabec 09/06/18 Atorvastatin Calcium [Lipitor 40 mg Tablet] 40 mg PO QHS #30 tablet 09/06/18 Furosemide [Lasix 20 mg Tablet] 20 mg PO QAM #30 tablet 09/06/18 Lisinopril [Prinivil 10 mg Tablet] 20 mg PO DAILY #30 tablet 09/06/18 Potassium Chloride [Klor-Con 10 Meq Capsule ER] 10 meq PO DAILY #5 capsule.er 09/06/18 Vancomycin HCl 125 mg PO Q6H 5 Days #20 capsule 09/06/18 History of Present Illness Admission Date/PCP: 09/01/18 11:43 THOMAS PELAEZ MD History of Present Illness: Admitting hospitalist's H&P: RUSSELL PARRA is a 67 year old male with history of right-sided CVA, obesity, type 2 diabetes mellitus, hypertension, coronary aretery disease, prior CABG, osteoarthritis, hyperlipidemia, asthma came to the emergency room with complaints of trouble walking from this morning. As per the patient patient has diarrhea for the last 1 week and not associated with nausea not associated with vomiting no abdominal pains no blood in the stool not associated with fever. Watery stool. No other complaints. Work-up in the emergency room shows WBC count of 13,500 BNP of 1100 with bilateral pedal edema chest x-ray shows cardiomegaly. Because the patient has trouble in walking and diarrhea medical consult was requested for admission. Hospital Course Hospital Course: This is a 67 year old male with history of right-sided CVA, obesity, type 2 diabetes mellitus, hypertension, coronary artery disease, prior CABG, oste oarthritis, hyperlipidemia, asthma came to the emergency room with complaints of trouble walking from this morning and diarrhea for a week. He was noted to have leukocytosis and tested positive for C. difficile. He was also noted to be in acute kidney injury. He was started on IV fluids. He was also started on oral vancomycin. His there did improve and became more formed. He was also noted to have incidental elevated troponin and was scheduled for a stress test. Stress test came back negative for reversible defect and positive for anterior wall MO, indeterminate age. Cardiology recommends optimal medical therapy. Patient does have a known CAD and prior CABG. He did not complain of any chest pain throughout this admission. His EKG also did not show signs of acute MO. He did receive therapeutic Lovenox. Aspirin was also added to his regimen as he is already on Plavix. His simvastatin was also switched to atorvastatin 40 mg daily. did inquire if he had another CVA because he had some left leg weakness which was new when he came in. He did have a 4/5 weakness on the left leg. He has a prior right residual weakness from a left sided CVA previously. His CT did not show any acute stroke but did show old left-sided CVA. He does have eye implants and cannot have an MRI. As mentioned, he will be optimized medically. His left lower leg weakness did and was resolved. He will complete 5 more days of p.o. vancomycin. Also discussed risk and benefits of being on 2 antiplatelet meds and and patient are amenable to the risks of bleeding. Physical Exam Vital Signs: Temp Pulse Resp BP Pulse Ox 98.3 F 78 16 137/65 H 89 L 09/07/18 07:35 09/07/18 07:35 09/07/18 07:35 09/07/18 07:35 09/07/18 07:35 Intake & Output 09/06/18 09/07/18 09/08/18 06:59 06:59 06:59 Intake Total 490 600 Balance 490 600 Weight 268 lb 15.423 oz 268 lb 15.423 oz General appearance: PRESENT: no acute distress, well-developed, well-nourished Head exam: PRESENT: atraumatic, normocephalic Eye exam: PRESENT: conjunctiva pink, EOMI, PERRLA. ABSENT: scleral icterus Ear exam: PRESENT: normal external ear exam Mouth exam: PRESENT: moist, tongue midline Neck exam: ABSENT: carotid bruit, JVD, lymphadenopathy, thyromegaly Respiratory exam: PRESENT: clear to auscultation michaela. ABSENT: rales, rhonchi, wheezes Cardiovascular exam: PRESENT: RRR. ABSENT: diastolic murmur, rubs, systolic murmur Pulses: PRESENT: normal dorsalis pedis pul GI/Abdominal exam: PRESENT: normal bowel sounds, soft. ABSENT: distended, guarding, mass, organolmegaly, rebound, tenderness Rectal exam: PRESENT: deferred Neurological exam: PRESENT: alert, awake, oriented to person, oriented to place, oriented to time, oriented to situation, CN II-XII grossly intact. ABSENT: motor sensory deficit Results Laboratory Results: 09/07/18 10:20 09/07/18 10:20 09/06/18 09/07/18 09/07/18 06:44 03:05 10:20 WBC 9.1 RBC 3.86 L Hgb 11.7 L Hct 34.5 L MCV 89 MCH 30.4 MCHC 34.0 RDW 13.3 Plt Count 399 Seg Neutrophils % Not Reportable Lymphocytes % Not Reportable Monocytes % Not Reportable Eosinophils % Not Reportable Basophils % Not Reportable Absolute Neutrophils Not Reportable Absolute Lymphocytes Not Reportable Absolute Monocytes Not Reportable Absolute Eosinophils Not Reportable Absolute Basophils Not Reportable Sodium 135.8 L Potassium 5.2 H Chloride 94 L Carbon Dioxide 32 H Anion Gap 10 BUN 49 H Creatinine 1.35 H Est GFR ( Amer) > 60 Est GFR (Non-Af Amer) 53 L Glucose 282 H Calcium 9.4 Stool Occult Blood NEGATIVE 09/07/18 10:20 WBC RBC Hgb Hct MCV MCH MCHC RDW Plt Count Seg Neutrophils % Lymphocytes % Monocytes % Eosinophils % Basophils % Absolute Neutrophils Absolute Lymphocytes Absolute Monocytes Absolute Eosinophils Absolute Basophils Sodium 134.4 L Potassium 4.3 Chloride 94 L Carbon Dioxide 32 H Anion Gap 8 BUN 56 H Creatinine 1.67 H Est GFR ( Amer) 50 L Est GFR (Non-Af Amer) 41 L Glucose 254 H Calcium 9.2 Stool Occult Blood 09/01/18 10:26 Blood Blood Culture - Final NO GROWTH IN 5 DAYS 09/01/18 09:41 Blood Blood Culture - Final NO GROWTH IN 5 DAYS 08/31/18 08/31/18 08/31/18 14:47 14:47 22:23 Creatine Kinase 65 CK-MB (CK-2) 0.39 6.09 H Troponin I 0.061 NT-Pro-B Natriuret Pep 1170 H 09/01/18 09/01/18 09/03/18 05:06 10:26 13:24 Creatine Kinase CK-MB (CK-2) 6.38 H 7.38 H Troponin I 0.564 NT-Pro-B Natriuret Pep 1430 H 09/04/18 09:53 Creatine Kinase CK-MB (CK-2) Troponin I 0.172 NT-Pro-B Natriuret Pep Impressions: Abdomen X-Ray 08/31/18 00:00 IMPRESSION: NON-SPECIFIC BOWEL GAS PATTERN .Few scattered small bowel loops with air fluid levels. No distended large or small bowel loops are identified. Moderate stool burden. Head CT 08/31/18 00:00 IMPRESSION: No hemorrhage. No midline shift. Encephalomalacia in the left occipital lobe, otherwise age appropriate white matter. No evidence for acute infarction. EVIDENCE OF ACUTE STROKE: NO. Chest X-Ray 08/31/18 13:50 IMPRESSION: Cardiomegaly without acute abnormality of the lungs. KUB X-Ray 09/01/18 00:00 IMPRESSION: Constipation. Lung Scan-VQ NM 09/01/18 00:00 IMPRESSION: Low probability for pulmonary embolus. Qualifiers - * PATIENT BEING DISCHARGED WITH ANY OF THE FOLLOWING DIAGNOSIS: No Acute Heart Failure - Is this a Heart Failure Patient?: No LVEF < 40%?: No- if no continue to question #3
[2018-09-07 13:53] VITALS: BP 152/59
== END 2018-09-07 18:15 | DRG 372 ==
LOC: ER 11:44 → EH 18:27 → 4S 21:58 → OBSVTOIN 09-01 11:43
PROVIDERS: ADMIT Internal Medicine; ATTEND Internal Medicine
DX: A04.72 Enterocolitis due to Clostridium difficile, not specified as recurrent (principal); I13.0 Hypertensive heart and chronic kidney disease with heart failure and stage 1 through stage 4 chronic kidney disease, or unspecified chronic kidney disease; Z66 Do not resuscitate; I69.351 Hemiplegia and hemiparesis following cerebral infarction affecting right dominant side; Z68.41 Body mass index [BMI] 40.0-44.9, adult; I50.22 Chronic systolic (congestive) heart failure; N17.9 Acute kidney failure, unspecified; E78.5 Hyperlipidemia, unspecified; I25.10 Atherosclerotic heart disease of native coronary artery without angina pectoris; I25.2 Old myocardial infarction; J45.909 Unspecified asthma, uncomplicated; G47.30 Sleep apnea, unspecified; E11.9 Type 2 diabetes mellitus without complications; K21.9 Gastro-esophageal reflux disease without esophagitis; M19.90 Unspecified osteoarthritis, unspecified site; R09.02 Hypoxemia; E66.01 Morbid (severe) obesity due to excess calories; N18.3 Chronic kidney disease, stage 3 (moderate); E11.22 Type 2 diabetes mellitus with diabetic chronic kidney disease; Z79.4 Long term (current) use of insulin
CPT/HCPCS: 36415; 70450; 71046; 74018; 74019; 78452; 78582; 80048; 80053; 80061; 80202; 81001; 82272; 82550; 82553; 82565; 82803; 82962; 83036; 83605; 83735; 83880; 84443; 84484; 85025; 85027; 85610; 87040; 87045; 87086; 87205; 87493; 89055; 93005; 93010; 93017; 93306; 96360; 96361; 99285; A9500; A9540; A9567; G0378; J1644; J1650; J1815; J2270; J2543; J2785; J3370; J3490; J7030; J7050; J7060; Q9969

== ENCOUNTER 2018-09-08 13:26 | Emergency (ER) | payer MEDICARE, OTHER ==
--- NOTE | 2018-09-08 13:54 | ER Document Report ---
ED Medical Screen (RME) - General Stated Complaint: UNRESPONSIVE Time Seen by Provider: 09/08/18 13:37 Primary Care Provider: THOMAS PELAEZ MD [Primary Care Provider] - Follow up as needed Notes: 67-year-old male sent from long-term facility for going unresponsive during OT. Patient was unable to be awakened until he was in the emergency department. Patient currently complains of pain everywhere. Patient was recently discharged from the hospital after being treated for cellulitis of the leg as well as C. difficile colitis. Patient states his entire body hurts however he specifically denies chest pain or abdominal pain. TRAVEL OUTSIDE OF THE [place] IN LAST 30 DAYS: No - Related Data Allergies/Adverse Reactions: No Known Allergies Allergy (Verified 12/23/17 16:31) Past Medical History - Past Medical History Cardiac Medical History: Reports: Hx Coronary Artery Disease, Hx Heart Attack, Hx Hypercholesterolemia, Hx Hypertension Pulmonary Medical History: Reports: Hx Asthma - IN PAST, Hx Sleep Apnea - cpap did not help Denies: Hx Bronchitis, Hx COPD, Hx Pneumonia, Hx Tuberculosis Neurological Medical History: Reports: Hx Cerebrovascular Accident - R SIDE WEAKNESS. Denies: Hx Seizures Endocrine Medical History: Reports: Hx Diabetes Mellitus Type 2 Renal/ Medical History: Denies: Hx Peritoneal Dialysis GI Medical History: Reports: Hx Gastroesophageal Reflux Disease. Denies: Hx Hepatitis, Hx Hiatal Hernia, Hx Ulcer Musculoskeltal Medical History: Reports Hx Arthritis - GENERALIZED Skin Medical History: Reports Hx Cellulitis - Lower extremity cellulitis due to chronic edema Psychiatric Medical History: Denies: Hx Depression Traumatic Medical History: Reports: Hx Fractures - right gallegos Infectious Medical History: Denies: Hx Hepatitis Past Surgical History: Reports: Hx Appendectomy, Hx Cardiac Catheterization - CABG, Stent placed, Hx Cholecystectomy, Hx Coronary Artery Bypass Graft - 5 vessels, Hx Coronary Stent, Hx Open Heart Surgery - STENT bypass. Denies: Hx Pacemaker - Immunizations Hx Diphtheria, Pertussis, Tetanus Vaccination: No Influenza Administration Date for 11/2016 - 04/2017 Season: 12/22/16 Physical Exam - Notes Notes: Obese, shaking his head, answering questions, refuses to open his eyes. He is oriented to person and time but not to place. Knows that Rui is the president however thinks it is 1959. Heartregular rate and rhythm no murmurs gallops or rubs Abdomen, soft, normal bowel sounds, nondistended. Doctor's Discharge - Discharge Referrals: THOMAS PELAEZ MD [Primary Care Provider] - Follow up as needed
--- NOTE | 2018-09-08 14:21 | ER Document Report ---
ED General - General Chief Complaint: Unresponsive Stated Complaint: UNRESPONSIVE Time Seen by Provider: 09/08/18 13:37 Primary Care Provider: THOMAS PELAEZ MD [Primary Care Provider] - Follow up as needed Mode of Arrival: Medic Information source: Patient, Emergency Med Personnel, [facility] Records, Outside Facility Records Notes: 67-year-old male with hypertension, hyperlipidemia, type 2 diabetes, previous CVA, chronically elevated troponin, recent admission for C. difficile colitis, ILANA presents via EMS after an episode of being unresponsive during OT. Per nurs ing upon patient's arrival he remained unresponsive even to painful stimuli. Upon my exam patient is alert, awake and complaining of a headache. He states that he fell asleep during therapy. TRAVEL OUTSIDE OF THE [place] IN LAST 30 DAYS: No - HPI Onset: Just prior to arrival Onset/Duration: Sudden Quality of pain: Throbbing Severity: Moderate Pain Level: 2 Associated symptoms: Headache Exacerbated by: Denies Relieved by: Denies Similar symptoms previously: Yes Recently seen / treated by doctor: Yes - Related Data Allergies/Adverse Reactions: No Known Allergies Allergy (Verified 12/23/17 16:31) Past Medical History - General Information source: Patient - Social History Smoking Status: Never Smoker Frequency of alcohol use: None Drug Abuse: None Lives with: Halfway Family History: Reviewed & Not Pertinent, CAD, DM Patient has suicidal ideation: No Patient has homicidal ideation: No - Past Medical History Cardiac Medical History: Reports: Hx Coronary Artery Disease, Hx Heart Attack, Hx Hypercholesterolemia, Hx Hypertension Pulmonary Medical History: Reports: Hx Asthma - IN PAST, Hx Sleep Apnea - cpap did not help Denies: Hx Bronchitis, Hx COPD, Hx Pneumonia, Hx Tuberculosis Neurological Medical History: Reports: Hx Cerebrovascular Accident - R SIDE WEAKNESS. Denies: Hx Seizures Endocrine Medical History: Reports: Hx Diabetes Mellitus Type 2 Renal/ Medical History: Denies: Hx Peritoneal Dialysis GI Medical History: Reports: Hx Gastroesophageal Reflux Disease. Denies: Hx Hepatitis, Hx Hiatal Hernia, Hx Ulcer Musculoskeletal Medical History: Reports Hx Arthritis - GENERALIZED Skin Medical History: Reports Hx Cellulitis - Lower extremity cellulitis due to chronic edema Psychiatric Medical History: Denies: Hx Depression Traumatic Medical History: Reports: Hx Fractures - right gallegos Infectious Medical History: Denies: Hx Hepatitis Past Surgical History: Reports: Hx Appendectomy, Hx Cardiac Catheterization - CABG, Stent placed, Hx Cholecystectomy, Hx Coronary Artery Bypass Graft - 5 vessels, Hx Coronary Stent, Hx Open Heart Surgery - STENT bypass. Denies: Hx Pacemaker - Immunizations Hx Diphtheria, Pertussis, Tetanus Vaccination: No Hx Pneumococcal Vaccination: 12/22/16 Review of Systems - Review of Systems Notes: REVIEW OF SYSTEMS: CONSTITUTIONAL : Denies fever, chills, or sweats. + recent illness. Denies weight loss, + recent hospitalizations. EENT: Denies visual changes, eye pain. Denies sore throat, oral lesions, difficulty swallowing. CARDIOVASCULAR: Denies chest pain. Denies palpitations. Denies lower extremity edema. RESPIRATORY: Denies cough. Denies shortness of breath, wheezing. GASTROINTESTINAL: Denies abdominal pain or distention. Denies nausea, vomiting, or diarrhea. Denies blood in vomitus, stools, or per rectum. Denies black, tarry stools. Denies constipation. GENITOURINARY: Denies difficulty urinating, painful urination, frequency, blood in urine, testicular pain or penile discharge. MUSCULOSKELETAL: Denies back or neck pain or stiffness. Denies joint pain or swelling. SKIN: Denies rash, lesions or sores. HEMATOLOGIC : Denies easy bruising or bleeding. LYMPHATIC: Denies swollen glands. NEUROLOGICAL: Denies confusion or altered mental status. Denies loss of consci ousness. Denies dizziness or lightheadedness. Denies weakness or paralysis. Denies problems difficulty with ambulation, slurred speech. Denies sensory loss, numbness, or tingling. Denies seizures. PSYCHIATRIC: Denies anxiety or stress. Denies depression, suicidal ideation, or Physical Exam - Vital signs Vitals: Resp 21 H 09/08/18 13:38 Course - Re-evaluation Re-evalutation: Laboratory 09/08/18 09/08/18 09/08/18 14:20 14:20 14:20 WBC 9.5 RBC 3.90 L Hgb 11.8 L Hct 34.8 L MCV 89 MCH 30.2 MCHC 33.9 RDW 13.3 Plt Count 441 Total Counted 100 Seg Neutrophils % Not Reportable Seg Neuts % (Manual) 67 Lymphocytes % Not Reportable Lymphocytes % (Manual) 29 Monocytes % Not Reportable Monocytes % (Manual) 1 L Eosinophils % Not Reportable Eosinophils % (Manual) 3 Basophils % Not Reportable Basophils % (Manual) 0 Absolute Neutrophils Not Reportable Abs Neuts (Manual) 6.4 Absolute Lymphocytes Not Reportable Abs Lymphs (Manual) 2.8 Absolute Monocytes Not Reportable Abs Monocytes (Manual) 0.1 Absolute Eosinophils Not Reportable Absolute Eos (Manual) 0.3 Absolute Basophils Not Reportable Abs Basophils (Manual) 0.0 Large Platelets PRESENT Platelet Comment ADEQUATE Polychromasia SLIGHT Hypochromasia SLIGHT PT 13.4 INR 1.02 Sodium 132.3 L Potassium 5.7 H Chloride 94 L Carbon Dioxide 27 Anion Gap 11 BUN 77 H Creatinine 2.39 H Est GFR ( Amer) 33 L Est GFR (Non-Af Amer) 27 L Glucose 291 H Calcium 9.1 Total Bilirubin 0.3 Direct Bilirubin 0.3 Neonat Total Bilirubin Not Reportable Neonat Direct Bilirubin Not Reportable Neonat Indirect Bili Not Reportable AST 35 ALT 36 Alkaline Phosphatase 59 Creatine Kinase 78 CK-MB (CK-2) Troponin I Total Protein 6.3 Albumin 3.5 Urine Color Urine Appearance Urine pH Ur Specific Wyatt Urine Protein Urine Glucose (UA) Urine Ketones Urine Blood Urine Nitrite Urine Bilirubin Urine Urobilinogen Ur Leukocyte Esterase Urine WBC (Auto) Urine RBC (Auto) U Hyaline Cast (Auto) Squamous Epi Cells Auto Urine Mucus (Auto) Urine Ascorbic Acid 09/08/18 09/08/18 14:20 15:16 WBC RBC Hgb Hct MCV MCH MCHC RDW Plt Count Total Counted Seg Neutrophils % Seg Neuts % (Manual) Lymphocytes % Lymphocytes % (Manual) Monocytes % Monocytes % (Manual) Eosinophils % Eosinophils % (Manual) Basophils % Basophils % (Manual) Absolute Neutrophils Abs Neuts (Manual) Absolute Lymphocytes Abs Lymphs (Manual) Absolute Monocytes Abs Monocytes (Manual) Absolute Eosinophils Absolute Eos (Manual) Absolute Basophils Abs Basophils (Manual) Large Platelets Platelet Comment Polychromasia Hypochromasia PT INR Sodium Potassium Chloride Carbon Dioxide Anion Gap BUN Creatinine Est GFR ( Amer) Est GFR (Non-Af Amer) Glucose Calcium Total Bilirubin Direct Bilirubin Neonat Total Bilirubin Neonat Direct Bilirubin Neonat Indirect Bili AST ALT Alkaline Phosphatase Creatine Kinase CK-MB (CK-2) 1.06 Troponin I 0.019 Total Protein Albumin Urine Color YELLOW Urine Appearance SLIGHTLY-CLOUDY Urine pH 5.0 Ur Specific Wyatt 1.014 Urine Protein NEGATIVE Urine Glucose (UA) NEGATIVE Urine Ketones NEGATIVE Urine Blood NEGATIVE Urine Nitrite NEGATIVE Urine Bilirubin NEGATIVE Urine Urobilinogen NEGATIVE Ur Leukocyte Esterase NEGATIVE Urine WBC (Auto) 0 Urine RBC (Auto) 1 U Hyaline Cast (Auto) 63 Squamous Epi Cells Auto 1 Urine Mucus (Auto) RARE Urine Ascorbic Acid NEGATIVE Chest X-Ray 09/08/18 13:50 IMPRESSION: NO ACUTE RADIOGRAPHIC FINDING IN THE CHEST. Head CT 09/08/18 14:18 IMPRESSION: No acute abnormality of the lungs. Unchanged encephalomalacia of the left occipital lobe. EVIDENCE OF ACUTE STROKE: NO. 09/08/18 15:20 67-year-old male presented via EMS from [facility] after being unresponsive during occupational therapy. EMS reported patient not responsive to noxious stimuli. Nursing reports that upon his arrival to the emergency department he was speaking. Upon my exam patient is alert, awake and has a complaint of a mild headache. is at the bedside. Patient declining any pain medications at this time. 09/08/18 16:24 Patient reevaluated multiple times and has remained alert, awake and without any significant complaints. Daughter is not at the bedside. Patient requesting a m eal. CT of the head was obtained and showed no acute process. CMP does show an ILANA which has been present previously. Patient did receive IV fluids. He is tolerating p.o. Patient will be discharged back to [facility]. 09/08/18 20:40 Patient has been evaluated multiple times and remains awake, responsive. Patient has eaten dinner. - Vital Signs Vital signs: Temp Pulse Resp BP Pulse Ox 23 H 142/58 H 96 09/08/18 18:01 09/08/18 18:01 09/08/18 18:01 - Laboratory Result Diagrams: 09/08/18 14:20 09/08/18 14:20 Laboratory results interpreted by me: 09/08/18 09/08/18 14:20 14:20 RBC 3.90 L Hgb 11.8 L Hct 34.8 L Monocytes % (Manual) 1 L Sodium 132.3 L Potassium 5.7 H Chloride 94 L BUN 77 H Creatinine 2.39 H Est GFR ( Amer) 33 L Est GFR (Non-Af Amer) 27 L Glucose 291 H - Diagnostic Test Radiology reviewed: Image reviewed, Reports reviewed - EKG Interpretation by Ne EKG shows normal: Sinus rhythm Rate: Normal Rhythm: NSR When compared to previous EKG there are: No significant change Discharge - Discharge Clinical Impression: ILANA (acute kidney injury), Chronic kidney disease, stage 3, Encephalopathy Altered mental status Qualifiers: Altered mental status type: transient alteration of awareness Qualified Code(s): R40.4 - Transient alteration of awareness Uncontrolled diabetes mellitus Qualifiers: Diabetes mellitus type: type 2 Glycemic state: with hyperglycemia Qualified Code(s): E11.65 - Type 2 diabetes mellitus with hyperglycemia Condition: Good Disposition: SNF-Other Instructions: Altered Mental Status ([facility]), Dehydration ([facility]), Kidney Injury ([facility]) Additional Instructions: Please be sure to drink plenty of fluids while out in the heat. You can purchase packets of electrolyte replacement solutions such as Pedialyte or propel that you can add to plain water. This will help to make sure that you are getting adequate electrolytes in addition to fluids while working outside. Please return to the emergency department if you pass out, developed diffuse muscle cramping, have persistent vomiting, or have any other symptoms that are worrisome to you. Forms: Elevated Blood Pressure Referrals: THOMAS PELAEZ MD [Primary Care Provider] - Follow up as needed
[2018-09-08 14:41] LABS: HEMATOCRIT 34.8 % (37.9-51.0); HEMOGLOBIN 11.8 g/dL (13.5-17.0); INTERNATIONAL RATION (INR) 1.02; MEAN CORPUSCULAR HEMOGLOBIN 30.2 pg (27.0-33.4); MEAN CORPUSCULAR HGB CONC 33.9 g/dL (32.0-36.0); MEAN CORPUSCULAR VOLUME 89 fl (80-97); PLATELET COUNT 441 10^3/uL (150-450); PROTHROMBIN TIME 13.4 SEC (11.4-15.4); RED CELL DISTRIBUTION WIDTH 13.3 % (11.5-14.0); WHITE BLOOD COUNT 9.5 10^3/uL (4.0-10.5)
--- NOTE | 2018-09-08 14:44 | RADIOLOGY REPORT (SQ) ---
EXAM DESCRIPTION: CHEST SINGLE VIEW COMPLETED DATE/TIME: 09/08/2018 2:31 pm REASON FOR STUDY: unresponsive COMPARISON: 08/31/2018 two-view chest EXAM PARAMETERS: NUMBER OF VIEWS: One view. TECHNIQUE: Single frontal radiographic view of the chest acquired. RADIATION DOSE: NA LIMITATIONS: None. FINDINGS: LUNGS AND PLEURA: Bandlike scarring or atelectasis in the left upper lobe. Lungs are othe rwise well inflated and clear. No pleural effusion or pneumothorax. MEDIASTINUM AND HILAR STRUCTURES: No masses. Contour normal. HEART AND VASCULAR STRUCTURES: Mild cardiomegaly. Old sternotomy and CABG BONES: No acute findings. HARDWARE: None in the chest. OTHER: No other significant finding. IMPRESSION: NO ACUTE RADIOGRAPHIC FINDING IN THE CHEST. TECHNICAL DOCUMENTATION: JOB ID: [id number] [employer]- All Rights Reserved Reading location - IP/workstation name: [email or web address]
--- NOTE | 2018-09-08 14:47 | RADIOLOGY REPORT (SQ) ---
EXAM DESCRIPTION: CT HEAD WITHOUT COMPLETED DATE/TIME: 09/08/2018 2:38 pm REASON FOR STUDY: headache COMPARISON: 08/31/2018 TECHNIQUE: Axial images acquired through the brain without intravenous contrast. Images reviewed wi th bone, brain and subdural windows. Additional sagittal and coronal reconstructions were generated. Images stored on PACS. All CT scanners at this facility use dose modulation, iterative reconstruction, and/or weight based d osing when appropriate to reduce radiation dose to as low as reasonably achievable (ALARA). [facility]: Dose Right [facility]: CareDose [facility]: Dose Right [facility]: Teradose 4D [facility]: [employer] RADIATION DOSE: CT Rad equipment meets quality standard of care and radiation dose reduction techniq ues were employed. CTDIvol: 53.2 mGy. DLP: 1044 mGy-cm. mGy. LIMITATIONS: None. FINDINGS: VENTRICLES: Normal size and contour. CEREBRUM: No masses. No hemorrhage. No midline shift. No evidence for acute infarction. Redemonstr ated encephalomalacia of the left occipital lobe. CEREBELLUM: No masses. No hemorrhage. No alteration of density. No evidence for acute infarction. EXTRAAXIAL SPACES: No fluid collections. No masses. ORBITS AND GLOBE: No intra- or extraconal masses. Normal contour of globe without masses. CALVARIUM: No fracture. PARANASAL SINUSES: No fluid or mucosal thickening. SOFT TISSUES: No mass or hematoma. OTHER: No other significant finding. IMPRESSION: No acute abnormality of the lungs. Unchanged encephalomalacia of the left occipital lob e. EVIDENCE OF ACUTE STROKE: NO. COMMENT: Quality ID # [id number]: Final reports with documentation of one or more dose reduction techniques (e.g., Automated exposure control, adjustment of the mA and/or kV according to patient size, use of iterative reconstruction technique) TECHNICAL DOCUMENTATION: JOB ID: [id number] [email or web address]- All Rights Reserved Reading location - IP/workstation name: [email or web address]
[2018-09-08 14:59] LABS: ALANINE AMINOTRANSFERASE 36 U/L (21-72); ALBUMIN 3.5 g/dL (3.5-5.0); ALKALINE PHOSPHATASE 59 U/L (38-126); ANION GAP 11 (5-19); ASPARTATE AMINO TRANSFERASE 35 U/L (17-59); BILIRUBIN,DIRECT 0.3 mg/dL (0.0-0.4); BILIRUBIN,TOTAL 0.3 mg/dL (0.2-1.3); BLOOD UREA NITROGEN 77 mg/dL (7-20); CALCIUM 9.1 mg/dL (8.4-10.2); CARBON DIOXIDE 27 mmol/L (22-30); CHLORIDE 94 mmol/L (98-107); CREATINE KINASE 78 U/L (55-170); GLUCOSE 291 mg/dL (75-110); POTASSIUM 5.7 mmol/L (3.6-5.0); SODIUM 132.3 mmol/L (137-145); TOTAL PROTEIN 6.3 g/dL (6.3-8.2)
[2018-09-08 15:05] LABS: ABSOLUTE LYMPHOCYTES# (MANUAL) 2.8 10^3/uL (0.5-4.7); ABSOLUTE MONOCYTES # (MANUAL) 0.1 10^3/uL (0.1-1.4); BASOPHILS % (MANUAL) 0 % (0-2); EOSINOPHILS % (MANUAL) 3 % (0-6); LYMPHOCYTES % (MANUAL) 29 % (13-45); MONOCYTES % (MANUAL) 1 % (3-13); SEGMENTED NEUTROPHILS % (MAN) 67 % (42-78); TOTAL CELLS COUNTED 100
[2018-09-08 15:06] LABS: PLATELET COMMENT ADEQUATE; PLATELET LARGE PRESENT
[2018-09-08 15:07] LABS: POLYCHROMASIA SLIGHT
[2018-09-08 15:09] LABS: HYPOCHROMASIA SLIGHT
[2018-09-08 15:10] LABS: CREATINE KINASE MB 1.06 ng/mL (<4.55); TROPONIN I 0.019 ng/mL
[2018-09-08] MEDS ORDERED: NORMAL SALINE 1000 ML 1,000 ML IV ONE (15:13)
[2018-09-08 15:34] LABS: APPEARANCE,URINE SLIGHTLY-CLOUDY; BILIRUBIN,URINE NEGATIVE (NEGATIVE); COLOR,URINE YELLOW; GLUCOSE, URINE NEGATIVE (NEGATIVE); KETONES,URINE NEGATIVE (NEGATIVE); LEUKOCYTE ESTERASE,URINE NEGATIVE (NEGATIVE); NITRITE,URINE NEGATIVE (NEGATIVE); PROTEIN,URINE NEGATIVE (NEGATIVE); URINE SPECIFIC GRAVITY 1.014; UROBILINOGEN,URINE NEGATIVE mg/dL (<2.0)
--- NOTE | 2018-09-08 17:46 | EKG REPORT ---
SEVERITY:- ABNORMAL ECG - SINUS RHYTHM 78/MIN. IVCD NONSPECIFIC LATERAL ST-T CHANGES : Confirmed by: Sridhar Mclean MD 08-Sep-2018 17:45:50
[2018-09-08 21:19] VITALS: BP 135/65
== END 2018-09-08 21:19 ==
LOC: ER 13:26
DX: E11.65 Type 2 diabetes mellitus with hyperglycemia (principal); I12.9 Hypertensive chronic kidney disease with stage 1 through stage 4 chronic kidney disease, or unspecified chronic kidney disease; E11.22 Type 2 diabetes mellitus with diabetic chronic kidney disease; N18.3 Chronic kidney disease, stage 3 (moderate); N17.9 Acute kidney failure, unspecified; Z86.73 Personal history of transient ischemic attack (TIA), and cerebral infarction without residual deficits; G93.40 Encephalopathy, unspecified; R51 Headache; I25.10 Atherosclerotic heart disease of native coronary artery without angina pectoris; I25.2 Old myocardial infarction; J45.909 Unspecified asthma, uncomplicated; Z95.1 Presence of aortocoronary bypass graft; Z95.5 Presence of coronary angioplasty implant and graft
CPT/HCPCS: 93005; 99285; 96360; 96361; 36415; 87086; 82553; 82550; 85025; 85610; 87088; 80053; 81001; 84484; 87186; 71045; 70450; 93010; J7030

== ENCOUNTER 2018-09-15 15:18 | Inpatient (IN) | payer MEDICARE, OTHER ==
--- NOTE | 2018-09-15 16:47 | ER Document Report ---
ED Medical Screen (RME) - General Chief Complaint: Abnormal Lab Results Stated Complaint: ABNORMAL LABS Time Seen by Provider: 09/15/18 16:37 Primary Care Provider: JESSEE HARRY MD [Primary Care Provider] - Follow up as needed Notes: Patient is a 67-year-old male presents to the emergency department for abnormal lab values. Paperwork sent via EMS states patient has abnormalities in his chemistry. In reviewing labs in the computer it is noted patient had an increase in his potassium as well as a change in his kidney function. Patient is currently denying all complaints to include shortness of breath, chest pain, nausea, vomiting. Patient was recently diagnosed with Cdiff and is currently undergoing tx. GENERAL: Alert, interacts well. No acute distress. ABDOMEN: Soft, non-tender. Non-distended. Bowel sounds present in all 4 quadrants. I have greeted and performed a rapid initial assessment of this patient. A comprehensive ED assessment and evaluation of the patient, analysis of test results and completion of the medical decision making process will be conducted by additional ED providers. I have specifically instructed the patient or family members with the patient to immediately return to any nursing staff should anything change in the patient's condition or with their chief complaint. This medical record was dictated with voice recognizing software. There may be grammatical, syntax errors that are unintended. TRAVEL OUTSIDE OF THE [place] IN LAST 30 DAYS: No - Related Data Allergies/Adverse Reactions: No Known Allergies Allergy (Verified 09/15/18 15:33) Past Medical History - Social History Chew tobacco use (# tins/day): No Frequency of alcohol use: None Drug Abuse: None - Past Medical History Cardiac Medical History: Reports: Hx Coronary Artery Disease, Hx Heart Attack, Hx Hypercholesterolemia, Hx Hypertension Pulmonary Medical History: Reports: Hx Asthma - IN PAST, Hx Sleep Apnea - cpap did not help Denies: Hx Bronchitis, Hx COPD, Hx Pneumonia, Hx Tuberculosis Neurological Medical History: Reports: Hx Cerebrovascular Accident - R SIDE WEAKNESS. Denies: Hx Seizures Endocrine Medical History: Reports: Hx Diabetes Mellitus Type 2 Renal/ Medical History: Denies: Hx Peritoneal Dialysis GI Medical History: Reports: Hx Gastroesophageal Reflux Disease. Denies: Hx Hepatitis, Hx Hiatal Hernia, Hx Ulcer Musculoskeltal Medical History: Reports Hx Arthritis - GENERALIZED Skin Medical History: Reports Hx Cellulitis - Lower extremity cellulitis due to chronic edema Psychiatric Medical History: Denies: Hx Depression Traumatic Medical History: Reports: Hx Fractures - right gallegos Infectious Medical History: Denies: Hx Hepatitis Past Surgical History: Reports: Hx Appendectomy, Hx Cardiac Catheterization - CABG, Stent placed, Hx Cholecystectomy, Hx Coronary Artery Bypass Graft - 5 vessels, Hx Coronary Stent, Hx Open Heart Surgery - STENT bypass. Denies: Hx Pacemaker - Immunizations Hx Diphtheria, Pertussis, Tetanus Vaccination: No Influenza Administration Date for 11/2016 - 04/2017 Season: 12/22/16 Physical Exam - Vital signs Vitals: Temp Pulse Resp BP Pulse Ox 97.6 F 81 18 97/64 L 95 09/15/18 15:36 09/15/18 15:36 09/15/18 15:36 09/15/18 15:36 09/15/18 15:36 Course - Vital Signs Vital signs: Temp Pulse Resp BP Pulse Ox 97.6 F 81 18 97/64 L 95 09/15/18 15:36 09/15/18 15:36 09/15/18 15:36 09/15/18 15:36 09/15/18 15:36 Doctor's Discharge - Discharge Referrals: JESSEE HARRY MD [Primary Care Provider] - Follow up as needed
[2018-09-15 18:35] LABS: ABSOLUTE EOSINOPHILS # (AUTO) 0.3 10^3/uL (0.0-0.6); ABSOLUTE LYMPHOCYTES (AUTO) 2.6 10^3/uL (0.5-4.7); ABSOLUTE MONOCYTES (AUTO) 0.6 10^3/uL (0.1-1.4); ABSOLUTE NEUT (AUTO) 4.5 10^3/uL (1.7-8.2); BASOPHILS % (AUTO) 0.2 % (0-2); HEMATOCRIT 34.1 % (37.9-51.0); HEMOGLOBIN 11.9 g/dL (13.5-17.0); LYMPHOCYTES % (AUTO) 31.9 % (13-45); MEAN CORPUSCULAR HGB CONC 34.8 g/dL (32.0-36.0); MEAN CORPUSCULAR VOLUME 89 fl (80-97); MONOCYTES % (AUTO) 7.7 % (3-13); RED BLOOD COUNT 3.84 10^6/uL (4.35-5.55); RED CELL DISTRIBUTION WIDTH 13.9 % (11.5-14.0); SEGMENTED NEUTROPHILS % (AUTO) 56.2 % (42-78); TOTAL CELLS COUNTED % (AUTO) 100 %; WHITE BLOOD COUNT 8.1 10^3/uL (4.0-10.5)
[2018-09-15 18:47] LABS: PLATELET COUNT 325 10^3/uL (150-450)
[2018-09-15] MEDS ORDERED: NORMAL SALINE 1000 ML 1,000 ML IV ONE (18:55)
--- NOTE | 2018-09-15 18:55 | ER Document Report ---
ED General - General Chief Complaint: Abnormal Lab Results Stated Complaint: ABNORMAL LABS Time Seen by Provider: 09/15/18 16:37 Primary Care Provider: JESSEE HARRY MD [Primary Care Provider] - Follow up as needed Notes: Patient is a 67-year-old male with multiple chronic medical conditions including hypertension, CAD, gout, recent C. difficile that presents to the emergency department for chief complaint of abnormal blood work from shelter. Patient apparently had outpatient blood testing, that demonstrated a markedly elevated BUN, creatinine and a slightly elevated potassium of 5.5, he apparently was in acute renal failure from his baseline. He is on diuretics, and an ANDRES inhibitor, and has not been eating and drinking as much as he usually does at the shelter, he is there for rehab is been there about 8 days now. He was being treated for C. difficile, was having diarrhea up until today. Complete course of p.o. vancomycin at the shelter. He denies having any symptoms of chest pain, shortness of breath, difficulty breathing, nausea, vomiting or abdominal pain. He thinks he is been urinating a usual amount, but he states he is definitely drinking less, there has not been changes in his medication since going to the shelter. Past Medical History: Asthma, CAD, history of C. difficile, gout, hypertension Past Surgical History: CABG x5 Social History: Denies current tobacco, alcohol or drug use, currently at rehab facility. Family History: Reviewed and noncontributory for presenting illness Allergies: Reviewed, see documented allergy list. REVIEW OF SYSTEMS: Other than noted above, the 12 point review of systems was reviewed with the patient and were negative, all pertinent findings are included in the HPI. PHYSICAL EXAMINATION: Vital signs reviewed, nursing noted reviewed. GENERAL: Obese male, no acute distress. HEAD: Atraumatic, normocephalic. EYES: Eyes appear normal, extraocular movements intact, sclera anicteric, conjunctiva are normal. ENT: nares patent, oropharynx clear without exudates. Moist mucous membranes. NECK: Normal range of motion, supple without lymphadenopathy LUNGS: Breath sounds clear to auscultation bilaterally and equal. No wheezes rales or rhonchi. HEART: Regular rate and rhythm without murmurs ABDOMEN: Soft, nontender, normoactive bowel sounds. No rebound, guarding, or rigidity. No masses appreciated. EXTREMITIES: Nontender, good range of motion, stasis skin changes, and the lower extreme is bilaterally, trace pedal edema. NEUROLOGICAL: No focal neurological deficits. Moves all extremities spontaneously Motor and sensory grossly intact on exam, he does have decreased strength +4/5 in the lower extremities bilaterally and equal, this is chronic and unchanged. PSYCH: Normal mood, normal affect. SKIN: Warm, Dry, normal turgor, no rashes or lesions noted on exposed skin TRAVEL OUTSIDE OF THE [place] IN LAST 30 DAYS: No - Related Data Allergies/Adverse Reactions: No Known Allergies Allergy (Verified 09/15/18 15:33) Past Medical History - Social History Smoking Status: Never Smoker Chew tobacco use (# tins/day): No Frequency of alcohol use: None Drug Abuse: None Family History: Reviewed & Not Pertinent, CAD, DM Patient has suicidal ideation: No Patient has homicidal ideation: No - Past Medical History Cardiac Medical History: Reports: Hx Coronary Artery Disease, Hx Heart Attack, Hx Hypercholesterolemia, Hx Hypertension Pulmonary Medical History: Reports: Hx Asthma - IN PAST, Hx Sleep Apnea - cpap did not help Denies: Hx Bronchitis, Hx COPD, Hx Pneumonia, Hx Tuberculosis Neurological Medical History: Reports: Hx Cerebrovascular Accident - R SIDE WEAKNESS. Denies: Hx Seizures Endocrine Medical History: Reports: Hx Diabetes Mellitus Type 2 Renal/ Medical History: Denies: Hx Peritoneal Dialysis GI Medical History: Reports: Hx Gastroesophageal Reflux Disease. Denies: Hx Hepatitis, Hx Hiatal Hernia, Hx Ulcer Musculoskeletal Medical History: Reports Hx Arthritis - GENERALIZED Skin Medical History: Reports Hx Cellulitis - Lower extremity cellulitis due to chronic edema Psychiatric Medical History: Denies: Hx Depression Traumatic Medical History: Reports: Hx Fractures - right gallegos Infectious Medical History: Denies: Hx Hepatitis Past Surgical History: Reports: Hx Appendectomy, Hx Cardiac Catheterization - CABG, Stent placed, Hx Cholecystectomy, Hx Coronary Artery Bypass Graft - 5 vessels, Hx Coronary Stent, Hx Open Heart Surgery - STENT bypass. Denies: Hx Pacemaker - Immunizations Hx Diphtheria, Pertussis, Tetanus Vaccination: No Hx Pneumococcal Vaccination: 12/22/16 Physical Exam - Vital signs Vitals: Temp Pulse Resp BP Pulse Ox 97.6 F 81 18 97/64 L 95 09/15/18 15:36 09/15/18 15:36 09/15/18 15:36 09/15/18 15:36 09/15/18 15:36 Course - Re-evaluation Re-evalutation: Patient seen and examined vital signs reviewed. Laboratory data and imaging were ordered as appropriate for the patient's presenting symptoms and complaint, with consideration of any critical or life threatening conditions that may be associated with their obtained history and exam as noted above. Patient was treated with IV fluids, calcium gluconate, sodium bicarbonate, i nsulin and D50. Results were reviewed when available and demonstrated mild hyperkalemia 5.5, with acute renal failure with a BUN of greater than 110, and creatinine of 4.8, his baseline seem to be around 1.3, suspect this is prerenal, from overdiuresis and diarrhea and lack of p.o. intake while at the shelter. The patient was re-evaluated and was stable, he did have diarrhea in the ED, he states he completed a course of p.o. vancomycin at the shelter, he does not have a leukocytosis today, will defer management for continued p.o. vancomycin to the hospitalist team. Evaluation was most consistent with acute renal failure, dehydration, hyperkalemia Results were discussed with the patient at this point after careful consideration I feel that that patient should be admitted to the hospital. This was discussed with the patient that it is in the best interest for their care to be admitted for further evaluation and management. Patient agreed with this plan of care. A call was placed to the admitting physician, Dr. Keys who graciously accepted the patient onto their service. *Note is created using voice recognition software and may contain spelling, syntax or grammatical errors. Laboratory 09/15/18 09/15/18 09/15/18 18:10 18:10 19:25 WBC 8.1 RBC 3.84 L Hgb 11.9 L Hct 34.1 L MCV 89 MCH 31.0 MCHC 34.8 RDW 13.9 Plt Count 325 Seg Neutrophils % 56.2 Lymphocytes % 31.9 Monocytes % 7.7 Eosinophils % 4.0 Basophils % 0.2 Absolute Neutrophils 4.5 Absolute Lymphocytes 2.6 Absolute Monocytes 0.6 Absolute Eosinophils 0.3 Absolute Basophils 0.0 Sodium Cancelled 137.5 Potassium Cancelled 5.5 H Chloride Cancelled 100 Carbon Dioxide Cancelled 26 Anion Gap Cancelled 12 BUN Cancelled 121 H Creatinine Cancelled 4.82 H Est GFR ( Amer) Cancelled 15 L Est GFR (Non-Af Amer) Cancelled 12 L Glucose Cancelled 150 H Calcium Cancelled 9.5 Total Bilirubin Cancelled 0.3 Direct Bilirubin Cancelled 0.2 Neonat Total Bilirubin Cancelled Not Reportable Neonat Direct Bilirubin Cancelled Not Reportable Neonat Indirect Bili Cancelled Not Reportable AST Cancelled 29 ALT Cancelled 30 Alkaline Phosphatase Cancelled 71 Total Protein Cancelled 6.4 Albumin Cancelled 3.7 - Vital Signs Vital signs: Temp Pulse Resp BP Pulse Ox 97.6 F 81 18 97/64 L 95 09/15/18 15:36 09/15/18 15:36 09/15/18 15:36 09/15/18 15:36 09/15/18 15:36 - Laboratory Result Diagrams: 09/15/18 18:10 09/15/18 19:25 Laboratory results interpreted by me: 09/15/18 09/15/18 18:10 19:25 RBC 3.84 L Hgb 11.9 L Hct 34.1 L Potassium 5.5 H BUN 121 H Creatinine 4.82 H Est GFR ( Amer) 15 L Est GFR (Non-Af Amer) 12 L Glucose 150 H - EKG Interpretation by Me Additional EKG results interpreted by me: EKG demonstrates sinus rhythm with a ventricular rate of 72 bpm, left axis deviation, QTC 403 ms, isolated T wave inversion in lead V2, no ST elevation, compared with prior EKG from 09/08/2018, without significant change. Critical Care Note - Critical Care Note Total time excluding time spent on procedures (mins): 35 Comments: Critical care time 35 minutes exclusive from separate billable procedures for a patient requiring complex medical decision making, and high potential for clinical deterioration. In a patient with acute renal failure and hyperkalemia. Time spent obtaining history from patient or surrogate, discussions with consultants, development of treatment plan with patient or surrogate, evaluation of patient's response to treatment, examination of patient, ordering and performing treatments and interventions, ordering and review of laboratory studies, re-evaluation of patient's condition, ordering and review of radiographic studies and review of old charts Discharge - Discharge Clinical Impression: Hyperkalemia, Dehydration Acute renal failure Qualifiers: Acute renal failure type: unspecified Qualified Code(s): N17.9 - Acute kidney failure, unspecified Diarrhea Qualifiers: Diarrhea type: unspecified type Qualified Code(s): R19.7 - Diarrhea, unspecified Condition: Stable Disposition: ADMITTED INPATIENT Admitting Provider: Massimo (Hospitalist) Unit Admitted: Telemetry Referrals: JESSEE HARRY MD [Primary Care Provider] - Follow up as needed
[2018-09-15 20:08] LABS: ALANINE AMINOTRANSFERASE 30 U/L (21-72); ALBUMIN 3.7 g/dL (3.5-5.0); ALKALINE PHOSPHATASE 71 U/L (38-126); ANION GAP 12 (5-19); ASPARTATE AMINO TRANSFERASE 29 U/L (17-59); BILIRUBIN,DIRECT 0.2 mg/dL (0.0-0.4); BILIRUBIN,TOTAL 0.3 mg/dL (0.2-1.3); CALCIUM 9.5 mg/dL (8.4-10.2); CARBON DIOXIDE 26 mmol/L (22-30); CHLORIDE 100 mmol/L (98-107); GLUCOSE 150 mg/dL (75-110); POTASSIUM 5.5 mmol/L (3.6-5.0); TOTAL PROTEIN 6.4 g/dL (6.3-8.2)
[2018-09-15 20:16] LABS: BLOOD UREA NITROGEN 121 mg/dL (7-20)
[2018-09-15] MEDS ORDERED: INSULIN REG, HUMAN 100 UNIT/ML 3 ML VIAL (PYX) IV ONE (20:49)
[2018-09-15] MEDS ORDERED: CALCIUM GLUCONATE 1000 MG/10 ML INJ IV ONE (20:49)
[2018-09-15] MEDS ORDERED: SODIUM BICARBONATE 8.4% INJ 50 MEQ/50 ML DISP.SYRIN IV ONE (20:49)
[2018-09-15] MEDS ORDERED: DEXTROSE 50%-WATER 25 GM/50 ML DISP.SYRIN IV ONE (20:49)
[2018-09-15] MEDS ORDERED: ONDANSETRON HCL INJ/PF 4 MG/2 ML SDV IV PRN (21:24)
[2018-09-15] MEDS ORDERED: TEMAZEPAM 15 MG CAPSULE PO PRN (21:24)
[2018-09-15] MEDS ORDERED: MAGNESIUM HYDROXIDE SUSP 30 ML UDCUP PO PRN (21:24)
[2018-09-15] MEDS ORDERED: MAG HYDROX/AL HYDROX/SIMETH SUSP 30 ML UDCUP PO PRN (21:24)
[2018-09-15] MEDS ORDERED: GLUCAGON,HUMAN RECOMB 1 MG INJ IM PRN (21:31)
[2018-09-15] MEDS ORDERED: DEXTROSE 40% GEL 15 GM TUBE PO PRN ×2 (21:31)
[2018-09-15] MEDS ORDERED: HYDRALAZINE HCL INJ/PF 20 MG/1 ML SDV IV PRN (21:31)
[2018-09-15] MEDS ORDERED: DEXTROSE 50%-WATER 25 GM/50 ML DISP.SYRIN IV PRN ×2 (21:31)
[2018-09-15] MEDS ORDERED: ACETAMINOPHEN 325 MG TABLET PO PRN (21:31)
[2018-09-15] MEDS ORDERED: INSULIN REG, HUMAN 100 UNIT/ML 3 ML VIAL (PYX) SUBCUT PRN ×2 (21:31→21:46)
[2018-09-15] MEDS ORDERED: LEVALBUTEROL HCL NEB 0.63 MG/3 ML AMPUL NEB PRN (21:32)
[2018-09-15] MEDS ORDERED: NALBUPHINE HCL INJ 10 MG/1 ML AMPULE IV PRN (21:32)
[2018-09-15 21:36] LABS: APPEARANCE,URINE SLIGHTLY-CLOUDY; BILIRUBIN,URINE NEGATIVE (NEGATIVE); COLOR,URINE YELLOW; GLUCOSE, URINE NEGATIVE (NEGATIVE); KETONES,URINE TRACE mg/dL (NEGATIVE); LEUKOCYTE ESTERASE,URINE NEGATIVE (NEGATIVE); NITRITE,URINE NEGATIVE (NEGATIVE); PROTEIN,URINE NEGATIVE (NEGATIVE); URINE SPECIFIC GRAVITY 1.015; UROBILINOGEN,URINE NEGATIVE mg/dL (<2.0)
[2018-09-15] MEDS ORDERED: INSULIN GLARGINE,HUM.REC.ANLOG 1,000 UNIT/10 ML VIAL SUBCUT ONE (22:00)
[2018-09-15] MEDS: ATORVASTATIN CALCIUM 40 MG TABLET PO SCH (22:14)
[2018-09-15] MEDS: HEPARIN SOD (PORCINE) 5,000 UNIT/ML 1 ML VIAL SUBCUT SCH (22:14)
[2018-09-15] MEDS: RINGERS SOLUTION,LACTATED 1,000 ML IV PRN (22:28)
--- NOTE | 2018-09-15 23:06 | EKG REPORT ---
SEVERITY:- BORDERLINE ECG - SINUS RHYTHM BORDERLINE LEFT AXIS DEVIATION BORDERLINE T ABNORMALITIES, ANTERIOR LEADS : Confirmed by: Nydia Parker 15-Sep-2018 23:05:29
[2018-09-16] MEDS ORDERED: CARBAMAZEPINE 200 MG TABLET ONE (00:20)
[2018-09-16] MEDS: CARBAMAZEPINE 200 MG TABLET PO SCH ×3 (00:22→22:52)
[2018-09-16] MEDS: RINGERS SOLUTION,LACTATED 1,000 ML IV PRN ×3 (00:24→18:07)
--- NOTE | 2018-09-16 01:22 | ADVANCED CARE ---
- Diagnosis (1) Acute kidney injury superimposed on chronic kidney disease Diagnosis Current: Yes (2) GIANNI (obstructive sleep apnea) Diagnosis Current: Yes (3) Diabetes mellitus type 2 in obese Diagnosis Current: Yes (4) Hypertension Diagnosis Current: Yes (5) Coronary artery disease Diagnosis Current: Yes Attendance: Patient and myself Resuscitation Status: Full Code Discussion: After a discussion concerning the patient's previous DNR status and the motives and situation surrounding that decision he is no longer happy with that status and wishes to change his CODE STATUS for resuscitation to full code. Additionally he has named Reny Ybarra as his designated surrogate medical decision-maker. Care Planning Goals: 1. Patient will be full CODE STATUS for the remainder of this admission or until he designates otherwise. 2. Reny Ybarra is his designated surrogate medical decision-maker. Document(s) Completed: Following information in addition to the patient's permanent medical record, this medical record and current medical orders via EMR entry: 1. Patient will be full CODE STATUS for the remainder of this admission or until he designates otherwise. 2. Reny Ybarra is his designated surrogate medical decision-maker. Time Spent: 16 minutes
[2018-09-16 04:57] LABS: HEMATOCRIT 31.4 % (37.9-51.0); HEMOGLOBIN 10.8 g/dL (13.5-17.0); MEAN CORPUSCULAR HEMOGLOBIN 30.8 pg (27.0-33.4); MEAN CORPUSCULAR HGB CONC 34.4 g/dL (32.0-36.0); MEAN CORPUSCULAR VOLUME 90 fl (80-97); PLATELET COUNT 253 10^3/uL (150-450); RED CELL DISTRIBUTION WIDTH 13.4 % (11.5-14.0); WHITE BLOOD COUNT 4.9 10^3/uL (4.0-10.5)
[2018-09-16 05:17] LABS: ANION GAP 8 (5-19); BLOOD UREA NITROGEN 106 mg/dL (7-20); CARBON DIOXIDE 23 mmol/L (22-30); CHLORIDE 107 mmol/L (98-107); GLUCOSE 211 mg/dL (75-110); POTASSIUM 5.5 mmol/L (3.6-5.0)
[2018-09-16] MEDS: HEPARIN SOD (PORCINE) 5,000 UNIT/ML 1 ML VIAL SUBCUT SCH ×3 (05:36→22:50)
[2018-09-16] MEDS: PANTOPRAZOLE SODIUM 40 MG TABLET.DR PO SCH ×2 (05:36→16:17)
[2018-09-16] MEDS: CLOPIDOGREL BISULFATE 75 MG TABLET PO SCH (09:35)
[2018-09-16] MEDS: COLCHICINE 0.6 MG TABLET PO SCH (09:36)
[2018-09-16] MEDS: DOCUSATE SODIUM 100 MG CAPSULE PO SCH ×2 (09:36→18:15)
[2018-09-16] MEDS: GABAPENTIN 300 MG CAPSULE PO SCH ×2 (09:39→22:51)
--- NOTE | 2018-09-16 10:07 | PDOC PROGRESS REPORT ---
Subjective Progress Note for:: 09/16/18 Subjective:: 67-year-old male with multiple chronic medical conditions including hypertension, CAD, gout, recent C. difficile that presents to the emergency department for chief complaint of abnormal blood work from residential. Patient apparently had outpatient blood testing, that demonstrated a markedly elevated BUN, creatinine and a slightly elevated potassium of 5.5, he apparently was in acute renal failure from his baseline. He is on diuretics, and an ANDRES inhibitor, and has not been eating and drinking as much as he usually does at the residential, he is there for rehab is been there about 8 days now. He was being treated for C. difficile, was having diarrhea up until today. Complete course of p.o. vancomycin at the residential. He denies having any symptoms of chest pain, shortness of breath, difficulty breathing, nausea, vomiting or abdominal pain. He thinks he is been urinating a usual amount, but he states he is definitely drinking less, there has not been changes in his medication since going to the residential. [id number]-old male with multiple medical problems came from the residential with abnormal labs with elevated BUN/creatinine and hyperkalemia. Patient please recently treated with C. difficile with p.o. vancomycin. Patient is complaining of severe pains and agitated and occasionally getting confused. He does not want any pain it does not want morphine he want me to call his and get her permission to start on pain medications. As per the patient's she wants her to be on gabapentin. Order was placed. The nurses also telling me patient has a poor urinary output P going to do the bladder scan and to do the Madsen's catheter. Creatinine was slightly improved since the admission to 3.22. Reason For Visit: ACUTE KIDNEY INJURY SUPERIMPOSED ON STAGE III Physical Exam Vital Signs: Temp Pulse Resp BP Pulse Ox 97.3 F 88 22 H 110/64 98 09/16/18 07:00 09/16/18 07:00 09/16/18 07:00 09/16/18 07:00 09/16/18 07:00 Intake & Output 09/15/18 09/16/18 09/17/18 06:59 06:59 06:59 Intake Total 1743 Output Total 50 Balance 1693 Weight 111.7 kg General appearance: PRESENT: morbidly obese, other - agitated anxious complaining of pain. Not cooperative. Head exam: PRESENT: atraumatic Eye exam: PRESENT: PERRLA Mouth exam: PRESENT: dry mucosa Teeth exam: PRESENT: poor dentation Neck exam: ABSENT: carotid bruit, JVD, lymphadenopathy, thyromegaly Respiratory exam: PRESENT: clear to auscultation michaela. ABSENT: rales, rhonchi, wheezes Cardiovascular exam: PRESENT: RRR. ABSENT: diastolic murmur, rubs, systolic murmur GI/Abdominal exam: PRESENT: normal bowel sounds, soft. ABSENT: distended, guarding, mass, organolmegaly, rebound, tenderness Rectal exam: PRESENT: deferred Extremities exam: PRESENT: full ROM. ABSENT: calf tenderness, clubbing, pedal edema Neurological exam: PRESENT: alert, awake, oriented to person, oriented to place, oriented to time, oriented to situation, CN II-XII grossly intact. ABSENT: motor sensory deficit Psychiatric exam: PRESENT: agitated, anxious Results Laboratory Results: 09/16/18 04:06 09/16/18 04:06 09/15/18 09/15/18 09/15/18 18:10 18:10 19:25 WBC 8.1 RBC 3.84 L Hgb 11.9 L Hct 34.1 L MCV 89 MCH 31.0 MCHC 34.8 RDW 13.9 Plt Count 325 Seg Neutrophils % 56.2 Lymphocytes % 31.9 Monocytes % 7.7 Eosinophils % 4.0 Basophils % 0.2 Absolute Neutrophils 4.5 Absolute Lymphocytes 2.6 Absolute Monocytes 0.6 Absolute Eosinophils 0.3 Absolute Basophils 0.0 Sodium Cancelled 137.5 Potassium Cancelled 5.5 H Chloride Cancelled 100 Carbon Dioxide Cancelled 26 Anion Gap Cancelled 12 BUN Cancelled 121 H Creatinine Cancelled 4.82 H Est GFR ( Amer) Cancelled 15 L Est GFR (Non-Af Amer) Cancelled 12 L Glucose Cancelled 150 H Calcium Cancelled 9.5 Magnesium Total Bilirubin Cancelled 0.3 AST Cancelled 29 ALT Cancelled 30 Alkaline Phosphatase Cancelled 71 Total Protein Cancelled 6.4 Albumin Cancelled 3.7 Urine Color Urine Appearance Urine pH Ur Specific [place] Urine Protein Urine Glucose (UA) Urine Ketones Urine Blood Urine Nitrite Ur Leukocyte Esterase Urine WBC (Auto) Urine RBC (Auto) 09/15/18 09/16/18 09/16/18 21:20 04:06 04:06 WBC 4.9 RBC 3.50 L Hgb 10.8 L Hct 31.4 L MCV 90 MCH 30.8 MCHC 34.4 RDW 13.4 Plt Count 253 Seg Neutrophils % Lymphocytes % Monocytes % Eosinophils % Basophils % Absolute Neutrophils Absolute Lymphocytes Absolute Monocytes Absolute Eosinophils Absolute Basophils Sodium 138.0 Potassium 5.5 H Chloride 107 Carbon Dioxide 23 Anion Gap 8 BUN 106 H Creatinine 3.26 H Est GFR ( Amer) 23 L Est GFR (Non-Af Amer) 19 L Glucose 211 H Calcium 9.0 Magnesium 2.4 H Total Bilirubin AST ALT Alkaline Phosphatase Total Protein Albumin Urine Color YELLOW Urine Appearance SLIGHTLY-CLOUDY Urine pH 5.0 Ur Specific [place] 1.015 Urine Protein NEGATIVE Urine Glucose (UA) NEGATIVE Urine Ketones TRACE H Urine Blood NEGATIVE Urine Nitrite NEGATIVE Ur Leukocyte Esterase NEGATIVE Urine WBC (Auto) 1 Urine RBC (Auto) 1 Assessment and Plan - Diagnosis (1) Acute kidney injury superimposed on chronic kidney disease Is this a current diagnosis for this admission?: Yes Plan: Patient will receive supportive and symptomatic care as well as IV fluids. His renal functions will be monitored frequently with daily metabolic profiles and magnesium levels as well as a daily CBC. 09/[id number]-[id number]-old male admitted with acute on chronic kidney disease. Admission creatinine is 4.8 and improved to 3.22 with IV fluids. His baseline creatinine 2 weeks ago is 1.7. And is to continue the IV fluids. ILANA most likely prerenal. andres inhibitors are also discontinued. (2) Hyperkalemia Is this a current diagnosis for this admission?: Yes Plan: 09/16/2018-patient came in with hyperkalemia potassium is five-point 5 repeat potassium is also 5.5. To start the patient on Veltassa. (3) Diarrhea Qualifiers: Diarrhea type: unspecified type Qualified Code(s): R19.7 - Diarrhea, unspecified Is this a current diagnosis for this admission?: No Plan: 03/19/2018-patient has a recent history of diarrhea diagnosed with C. difficile he completed p.o. vancomycin therapy. (4) Diabetes mellitus type 2 in obese Is this a current diagnosis for this admission?: Yes Plan: Patient be continued on his usual diabetic care regiment, with the exception of metformin, and a diabetic diet. Before meals and at bedtime blood sugars will be obtained and a sliding scale insulin will be used for hyperglycemia. A hypoglycemic protocol will also be placed. 09/16/2018-patient has a history of type 2 diabetes mellitus presently on insulin sliding scale. To check him hemoglobin A1c and latest blood sugar is 210. (5) Hypertension Qualifiers: Hypertension type: essential hypertension Qualified Code(s): I10 - Essential (primary) hypertension Is this a current diagnosis for this admission?: Yes Plan: Patient will be continued on his usual antihypertensive regimen with adjustments made for his renal failure including the discontinuation of lisinopril and the withholding of diuretics and potassium supplements at this point. Patient's blood pressure be monitored closely throughout his hospital stay. IV hydralazine 20 mg every 4 hours will be given on a as needed basis for excessive hypertension. 03/19/2018-patient has history of hypertension his blood pressure this morning is 1/64. Relatively controlled. Plan is to continue the present management. (6) Morbid obesity with BMI of 40.0-44.9, adult Is this a current diagnosis for this admission?: No Plan: 09/16/2018-patient's BMI is 39.7 diet exercise weight loss lifestyle modifications are discussed with the patient dietary consult was requested. (7) Urinary retention Is this a current diagnosis for this admission?: Yes Plan: 09/16/2018-patient is complaining of difficulty in urination plan is to arrange for a Madsen's catheter prior to that we are going to do the bladder scan. - Time Time Spent with patient: 25-34 minutes Medications reviewed and adjusted accordingly: Yes Anticipated discharge: SNF
[2018-09-16] MEDS: INSULIN GLARGINE,HUM.REC.ANLOG 1,000 UNIT/10 ML VIAL SUBCUT SCH ×2 (10:30→22:51)
[2018-09-16 10:58] LABS: APPEARANCE,URINE CLEAR; BILIRUBIN,URINE NEGATIVE (NEGATIVE); COLOR,URINE YELLOW; GLUCOSE, URINE 150 mg/dL (NEGATIVE); KETONES,URINE NEGATIVE (NEGATIVE); LEUKOCYTE ESTERASE,URINE NEGATIVE (NEGATIVE); NITRITE,URINE NEGATIVE (NEGATIVE); PROTEIN,URINE NEGATIVE (NEGATIVE); URINE SPECIFIC GRAVITY 1.013; UROBILINOGEN,URINE NEGATIVE mg/dL (<2.0)
[2018-09-16] MEDS: INSULIN REG, HUMAN 100 UNIT/ML 3 ML VIAL (PYX) SUBCUT SCH ×3 (12:09→22:51)
--- NOTE | 2018-09-16 12:35 | RADIOLOGY REPORT (SQ) ---
EXAM DESCRIPTION: U/S RETROPERITON (RENAL/AORTA) COMPLETED DATE/TIME: 09/16/2018 11:28 am REASON FOR STUDY: renal failure COMPARISON: None. TECHNIQUE: Dynamic and static grayscale images acquired of the kidneys and bladder and recorded on P ACS. Additional selected color Doppler and spectral images recorded. LIMITATIONS: None. FINDINGS: RIGHT KIDNEY: Normal size. Normal echogenicity. No solid or suspicious masses. No hydronep hrosis. No calcifications. LEFT KIDNEY: Normal size. Normal echogenicity. No solid or suspicious masses. No hydronephrosis. No calcifications. BLADDER: Decompressed. Madsen catheter. OTHER FINDINGS: No other significant finding. IMPRESSION: NORMAL RENAL AND BLADDER ULTRASOUND. No hydronephrosis. TECHNICAL DOCUMENTATION: JOB ID: [id number] [employer]- All Rights Reserved Reading location - IP/workstation name: [email or web address]
[2018-09-16] MEDS: ATORVASTATIN CALCIUM 40 MG TABLET PO SCH (22:51)
[2018-09-17] MEDS: HEPARIN SOD (PORCINE) 5,000 UNIT/ML 1 ML VIAL SUBCUT SCH ×3 (05:22→22:57)
[2018-09-17] MEDS: PANTOPRAZOLE SODIUM 40 MG TABLET.DR PO SCH ×2 (05:22→17:57)
[2018-09-17] MEDS: RINGERS SOLUTION,LACTATED 1,000 ML IV PRN ×3 (05:23→23:10)
--- NOTE | 2018-09-17 09:09 | PDOC PROGRESS REPORT ---
Subjective Progress Note for:: 09/17/18 Subjective:: 67-year-old male with multiple chronic medical conditions including hypertension, CAD, gout, recent C. difficile that presents to the emergency department for chief complaint of abnormal blood work from detention. Patient apparently had outpatient blood testing, that demonstrated a markedly elevated BUN, creatinine and a slightly elevated potassium of 5.5, he apparently was in acute renal failure from his baseline. He is on diuretics, and an ANDRES inhibitor, and has not been eating and drinking as much as he usually does at the detention, he is there for rehab is been there about 8 days now. He was being treated for C. difficile, was having diarrhea up until today. Complete course of p.o. vancomycin at the detention. He denies having any symptoms of chest pain, shortness of breath, difficulty breathing, nausea, vomiting or abdominal pain. He thinks he is been urinating a usual amount, but he states he is definitely drinking less, there has not been changes in his medication since going to the detention. 09/[id number]-old male with multiple medical problems came from the detention with abnormal labs with elevated BUN/creatinine and hyperkalemia. Patient please recently treated with C. difficile with p.o. vancomycin. Patient is complaining of severe pains and agitated and occasionally getting confused. He does not want any pain it does not want morphine he want me to call his and get her permission to start on pain medications. As per the patient's she wants her to be on gabapentin. Order was placed. The nurses also telling me patient has a poor urinary output P going to do the bladder scan and to do the Madsen's catheter. Creatinine was slightly improved since the admission to 3.22. 09/17/[id number]-pisy-old male admitted for acute kidney injury most likely secondary to prerenal causes he was recently treated for C. difficile with p.o. vancomycin no complaints of diarrhea anymore. His creatinine was improved to 3.26 yesterday this morning he refused his labs I went there to convince him to have labs again so we can see the improvement in his creatinine. Patient also complaining of difficulty in urination yesterday urinary cath replaced. Urinary output is excellent. Reason For Visit: ACUTE KIDNEY INJURY SUPERIMPOSED ON STAGE III Physical Exam Vital Signs: Temp Pulse Resp BP Pulse Ox 97.6 F 94 18 129/55 H 99 09/17/18 08:04 09/17/18 08:04 09/17/18 08:04 09/17/18 08:04 09/17/18 08:04 Intake & Output 09/16/18 09/17/18 09/18/18 06:59 06:59 06:59 Intake Total 2743 3022 Output Total 50 2875 Balance 2693 147 Weight 111.7 kg 113.2 kg General appearance: PRESENT: no acute distress, morbidly obese Head exam: PRESENT: atraumatic Eye exam: PRESENT: PERRLA Mouth exam: PRESENT: moist, tongue midline Teeth exam: PRESENT: poor dentation Neck exam: ABSENT: carotid bruit, JVD, lymphadenopathy, thyromegaly Respiratory exam: PRESENT: decreased breath sounds Cardiovascular exam: PRESENT: RRR. ABSENT: diastolic murmur, rubs, systolic murmur GI/Abdominal exam: PRESENT: normal bowel sounds, soft. ABSENT: distended, guarding, mass, organolmegaly, rebound, tenderness Rectal exam: PRESENT: deferred Extremities exam: PRESENT: full ROM. ABSENT: calf tenderness, clubbing, pedal edema Neurological exam: PRESENT: alert, awake, oriented to person, oriented to place, oriented to time, oriented to situation, CN II-XII grossly intact. ABSENT: motor sensory deficit Psychiatric exam: PRESENT: agitated Results Laboratory Results: 09/16/18 04:06 09/16/18 04:06 09/16/18 10:23 Urine Color YELLOW Urine Appearance CLEAR Urine pH 5.0 Ur Specific [place] 1.013 Urine Protein NEGATIVE Urine Glucose (UA) 150 H Urine Ketones NEGATIVE Urine Blood MODERATE H Urine Nitrite NEGATIVE Ur Leukocyte Esterase NEGATIVE Urine WBC (Auto) 1 Urine RBC (Auto) 4 Impressions: Renal Ultrasound 09/16/18 00:00 IMPRESSION: NORMAL RENAL AND BLADDER ULTRASOUND. No hydronephrosis. Assessment and Plan - Diagnosis (1) Acute kidney injury superimposed on chronic kidney disease Is this a current diagnosis for this admission?: Yes Plan: Patient will receive supportive and symptomatic care as well as IV fluids. His renal functions will be monitored frequently with daily metabolic profiles and magnesium levels as well as a daily CBC. 09/[id number]-wbip-old male admitted with acute on chronic kidney disease. Admission creatinine is 4.8 and improved to 3.22 with IV fluids. His baseline creatinine 2 weeks ago is 1.7. And is to continue the IV fluids. ILANA most likely prerenal. andres inhibitors are also discontinued. 09/[id number]-vxsu-old male admitted with ILANA on CKD. At the time of admission creatinine is 4.8 improved to 3.2 yesterday with IV fluids. Plan is to repeat the labs today but the patient refused the lab work so far. Patient's urinary output is 2.84 L. (2) Hyperkalemia Is this a current diagnosis for this admission?: Yes Plan: 09/16/2018-patient came in with hyperkalemia potassium is five-point 5 repeat potassium is also 5.5. To start the patient on Veltassa. 09/17/2018-patient came in with hyperkalemia potassium of 5.5 if he was given a Veltassa waiting for the labs today. (3) Diarrhea Qualifiers: Diarrhea type: unspecified type Qualified Code(s): R19.7 - Diarrhea, unspecified Is this a current diagnosis for this admission?: No Plan: -patient has a recent history of diarrhea diagnosed with C. difficile he completed p.o. vancomycin therapy. 09/17/2018-patient was recently diagnosed with C. difficile completed the course of p.o. vancomycin as outpatient. (4) Diabetes mellitus type 2 in obese Is this a current diagnosis for this admission?: Yes Plan: Patient be continued on his usual diabetic care regiment, with the exception of metformin, and a diabetic diet. Before meals and at bedtime blood sugars will be obtained and a sliding scale insulin will be used for hyperglycemia. A hypoglycemic protocol will also be placed. 09/16/2018-patient has a history of type 2 diabetes mellitus presently on insulin sliding scale. To check him hemoglobin A1c and latest blood sugar is 210. 09/17/2018-patient has history of type 2 diabetes mellitus latest blood sugar is 179. Hemoglobin A1c is pending. Plan is to continue the insulin sliding scale. (5) Hypertension Qualifiers: Hypertension type: essential hypertension Qualified Code(s): I10 - Essential (primary) hypertension Is this a current diagnosis for this admission?: Yes Plan: Patient will be continued on his usual antihypertensive regimen with adjustments made for his renal failure including the discontinuation of lisinopril and the withholding of diuretics and potassium supplements at this point. Patient's blood pressure be monitored closely throughout his hospital stay. IV hydralazine 20 mg every 4 hours will be given on a as needed basis for excessive hypertension. 09/16/2018-patient has history of hypertension his blood pressure this morning is 1/64. Relatively controlled. Plan is to continue the present management. 09/17/2018-patient blood pressure today is 126/52. Stable. Plan is to continue the present management. (6) Morbid obesity with BMI of 40.0-44.9, adult Is this a current diagnosis for this admission?: No Plan: 09/16/2018-patient's BMI is 39.7 diet exercise weight loss lifestyle modifications are discussed with the patient dietary consult was requested. 09/17/2018-patient's BMI is 40.3 diet exercise weight loss lifestyle modifications are discussed with the patient. Dietary consult was requested. (7) Urinary retention Is this a current diagnosis for this admission?: Yes Plan: 09/16/2018-patient is complaining of difficulty in urination plan is to arrange for a Madsen's catheter prior to that we are going to do the bladder scan. 09/17/2018-patient has urinary retention yesterday Madsen's catheter was in place draining well. - Time Time Spent with patient: 25-34 minutes Medications reviewed and adjusted accordingly: Yes Anticipated discharge: SNF
[2018-09-17] MEDS: INSULIN REG, HUMAN 100 UNIT/ML 3 ML VIAL (PYX) SUBCUT SCH ×4 (09:18→22:55)
[2018-09-17] MEDS: CLOPIDOGREL BISULFATE 75 MG TABLET PO SCH (09:18)
[2018-09-17] MEDS: CARBAMAZEPINE 200 MG TABLET PO SCH ×2 (09:19→22:57)
[2018-09-17] MEDS: ASPIRIN 81 MG TABLET, ENT COATED PO SCH (09:19)
[2018-09-17] MEDS: GABAPENTIN 300 MG CAPSULE PO SCH ×2 (09:19→22:53)
[2018-09-17] MEDS: POTASSIUM CHLORIDE 10 MEQ CAPSULE.ER PO SCH (09:19)
[2018-09-17] MEDS: COLCHICINE 0.6 MG TABLET PO SCH (09:19)
[2018-09-17] MEDS: DOCUSATE SODIUM 100 MG CAPSULE PO SCH ×2 (09:20→17:57)
[2018-09-17] MEDS: INSULIN GLARGINE,HUM.REC.ANLOG 1,000 UNIT/10 ML VIAL SUBCUT SCH ×2 (09:22→22:54)
[2018-09-17] MEDS ORDERED: COLCHICINE 0.6 MG TABLET PO SCH (10:00)
[2018-09-17] MEDS ORDERED: LISINOPRIL 10 MG TABLET PO SCH (10:00)
[2018-09-17] MEDS ORDERED: CARBAMAZEPINE 200 MG TABLET PO SCH (10:00)
[2018-09-17 11:08] LABS: ABSOLUTE EOSINOPHILS # (AUTO) 0.3 10^3/uL (0.0-0.6); ABSOLUTE LYMPHOCYTES (AUTO) 1.5 10^3/uL (0.5-4.7); ABSOLUTE MONOCYTES (AUTO) 0.3 10^3/uL (0.1-1.4); ABSOLUTE NEUT (AUTO) 2.4 10^3/uL (1.7-8.2); BASOPHILS % (AUTO) 0.1 % (0-2); EOSINOPHILS % (AUTO) 6.1 % (0-6); HEMATOCRIT 33.8 % (37.9-51.0); HEMOGLOBIN 11.6 g/dL (13.5-17.0); LYMPHOCYTES % (AUTO) 33.8 % (13-45); MEAN CORPUSCULAR HGB CONC 34.3 g/dL (32.0-36.0); MEAN CORPUSCULAR VOLUME 90 fl (80-97); MONOCYTES % (AUTO) 6.8 % (3-13); PLATELET COUNT 239 10^3/uL (150-450); RED BLOOD COUNT 3.74 10^6/uL (4.35-5.55); RED CELL DISTRIBUTION WIDTH 13.7 % (11.5-14.0); SEGMENTED NEUTROPHILS % (AUTO) 53.2 % (42-78); TOTAL CELLS COUNTED % (AUTO) 100 %; WHITE BLOOD COUNT 4.6 10^3/uL (4.0-10.5)
[2018-09-17 11:22] LABS: ALANINE AMINOTRANSFERASE 27 U/L (21-72); ALBUMIN 3.4 g/dL (3.5-5.0); ALKALINE PHOSPHATASE 66 U/L (38-126); ANION GAP 7 (5-19); ASPARTATE AMINO TRANSFERASE 27 U/L (17-59); BILIRUBIN,DIRECT 0.3 mg/dL (0.0-0.4); BILIRUBIN,TOTAL 0.3 mg/dL (0.2-1.3); BLOOD UREA NITROGEN 52 mg/dL (7-20); CALCIUM 9.5 mg/dL (8.4-10.2); CARBON DIOXIDE 26 mmol/L (22-30); CHLORIDE 110 mmol/L (98-107); GLUCOSE 216 mg/dL (75-110); POTASSIUM 5.6 mmol/L (3.6-5.0); TOTAL PROTEIN 6.1 g/dL (6.3-8.2)
[2018-09-17] MEDS: METOPROLOL SUCCINATE 50 MG TAB.SR.24H PO SCH (12:14)
[2018-09-17] MEDS ORDERED: GABAPENTIN 300 MG CAPSULE PO SCH (14:00)
[2018-09-17] MEDS: ATORVASTATIN CALCIUM 40 MG TABLET PO SCH (22:54)
[2018-09-18] MEDS: HEPARIN SOD (PORCINE) 5,000 UNIT/ML 1 ML VIAL SUBCUT SCH ×2 (05:50→16:26)
[2018-09-18] MEDS: PANTOPRAZOLE SODIUM 40 MG TABLET.DR PO SCH (05:51)
[2018-09-18] MEDS: RINGERS SOLUTION,LACTATED 1,000 ML IV PRN (05:56)
[2018-09-18 06:24] LABS: HEMATOCRIT 30.8 % (37.9-51.0); HEMOGLOBIN 10.5 g/dL (13.5-17.0); MEAN CORPUSCULAR HEMOGLOBIN 30.6 pg (27.0-33.4); MEAN CORPUSCULAR HGB CONC 34.2 g/dL (32.0-36.0); MEAN CORPUSCULAR VOLUME 90 fl (80-97); PLATELET COUNT 209 10^3/uL (150-450); RED BLOOD COUNT 3.44 10^6/uL (4.35-5.55); RED CELL DISTRIBUTION WIDTH 13.4 % (11.5-14.0); WHITE BLOOD COUNT 5.9 10^3/uL (4.0-10.5)
[2018-09-18 06:46] LABS: ALANINE AMINOTRANSFERASE 22 U/L (21-72); ALBUMIN 2.9 g/dL (3.5-5.0); ALKALINE PHOSPHATASE 59 U/L (38-126); ASPARTATE AMINO TRANSFERASE 22 U/L (17-59); BILIRUBIN,DIRECT 0.3 mg/dL (0.0-0.4); BILIRUBIN,TOTAL 0.3 mg/dL (0.2-1.3); CALCIUM 9.1 mg/dL (8.4-10.2); GLUCOSE 127 mg/dL (75-110); POTASSIUM 5.3 mmol/L (3.6-5.0); TOTAL PROTEIN 5.4 g/dL (6.3-8.2)
[2018-09-18 06:51] LABS: ANION GAP 6 (5-19); CARBON DIOXIDE 26 mmol/L (22-30); CHLORIDE 110 mmol/L (98-107)
[2018-09-18 07:02] LABS: BLOOD UREA NITROGEN 31 mg/dL (7-20)
[2018-09-18] MEDS: INSULIN REG, HUMAN 100 UNIT/ML 3 ML VIAL (PYX) SUBCUT SCH ×2 (08:47→12:29)
[2018-09-18] MEDS: ASPIRIN 81 MG TABLET, ENT COATED PO SCH (09:52)
[2018-09-18] MEDS: CLOPIDOGREL BISULFATE 75 MG TABLET PO SCH (09:53)
[2018-09-18] MEDS: METOPROLOL SUCCINATE 50 MG TAB.SR.24H PO SCH (09:53)
[2018-09-18] MEDS: DOCUSATE SODIUM 100 MG CAPSULE PO SCH (09:53)
[2018-09-18] MEDS: GABAPENTIN 300 MG CAPSULE PO SCH (09:55)
[2018-09-18] MEDS: COLCHICINE 0.6 MG TABLET PO SCH (09:55)
[2018-09-18] MEDS: CARBAMAZEPINE 200 MG TABLET PO SCH (09:55)
[2018-09-18] MEDS: POTASSIUM CHLORIDE 10 MEQ CAPSULE.ER PO SCH (09:58)
[2018-09-18] MEDS: INSULIN GLARGINE,HUM.REC.ANLOG 1,000 UNIT/10 ML VIAL SUBCUT SCH (09:58)
--- NOTE | 2018-09-18 13:10 | PDOC H&P ---
History of Present Illness Admission Date/PCP: 09/15/2018 20:51 JESSEE HARRY MD Patient complains of: Abnormal lab work History of Present Illness: RUSSELL BYARRA is a 67 year old male who presented to the emergency room from a local [facility] with an elevated creatinine. Patient was recently hospitalized for treatment of C. difficile and discharged to a shelter facility for rehab. His routine blood work done 6 days after discharge showed a elevation of his serum creatinine to 5.0 from 1.8 at the time of discharge from hospital. His serum potassium was also elevated at 5.5 and his BUN was 121. His only complaints are decreased appetite and decreased oral fluid intake. He denies any other associated or accompanying symptoms. He denies prior similar problems. He is unaware of any aggravating or ameliorating factors for his elevated creatinine. It was noted from his hospital discharge that he was continued on lisinopril at the time of his discharge despite a creatinine of 1.8. In the emergency room he was found to have a creatinine of 4.82 and a BUN of 121 with a potassium of 5.5. He was subsequently admitted to hospital for further evaluation and treatment of his iatrogenic acute kidney injury. Past Medical History Cardiac Medical History: Reports: Coronary Artery Disease, Myocardial Infarction, Hyperlipidema, Hypertension Pulmonary Medical History: Reports: Asthma - IN PAST, Sleep Apnea - cpap did not help Denies: Bronchitis, Chronic Obstructive Pulmonary Disease (COPD), Pneumonia, Tuberculosis EENT Medical History: Denies: Cataracts, Ears - Hearing aids Neurological Medical History: Denies: Multiple Sclerosis, Seizures Endocrine Medical History: Reports: Diabetes Mellitus Type 2, Obesity Denies: Diabetes Mellitus Type 1, Hyperthyroidism, Hypothyroidism Renal/ Medical History: Reports: Chronic Kidney Disease Denies: Nephrolithiasis Malignancy Medical History: Reports: None GI Medical History: Reports: Gastroesophageal Reflux Disease Denies: Cirrhosis, Crohn's Disease, Hepatitis, Hiatal Hernia, Ulcerative Colitis Musculoskeltal Medical History: Reports: Arthritis - GENERALIZED, Gout Denies: Fibromyalgia Skin Medical History: Denies: Eczema, Psoriasis Psychiatric Medical History: Denies: Alcohol Dependency, Depression, Substance Abuse, Tobacco Dependency Traumatic Medical History: Reports: None Hematology: Denies: Anemia, Bleeding Tendencies Infectious Medical History: Reports: Clostridium Difficile Past Surgical History Past Surgical History: Reports: Appendectomy, Cardiac Catheterization, Cholecyst ectomy, Coronary Artery Bypass Graft - 5 vessels, Coronary Stent Social History Information Source: Patient Lives with: Long-Term Smoking Status: Never Smoker Frequency of Alcohol Use: None Hx Recreational Drug Use: No Drugs: None Hx Prescription Drug Abuse: No - Advance Directive Resuscitation Status: Do Not Resuscitate Surrogate healthcare decision maker:: Reny Ybarra Family History Family History: CAD, DM Parental Family History Reviewed: Yes Children Family History Reviewed: No Sibling(s) Family History Reviewed.: Yes Medication/Allergy Home Medications: Carbamazepine [Carbamazepine ER] 200 mg PO BID 08/31/18 Clopidogrel Bisulfate [Plavix 75 mg Tablet] 75 mg PO DAILY 08/31/18 Colchicine [Colchicine 0.6 mg Tablet] 0.6 mg PO DAILY 08/31/18 Gabapentin [Neurontin 300 mg Capsule] 300 mg PO Q8 08/31/18 Insulin Aspart [Novolog Flexpen] 30 unit SQ AC 08/31/18 Metformin HCl [Glucophage XR 500 mg Tablet] 500 mg PO QPM 08/31/18 Metoprolol Succinate [Toprol XL 100 mg Tablet] 100 mg PO DAILY 08/31/18 Aspirin [Ecotrin 81 mg EC Tablet] 81 mg PO DAILY #30 tabec 09/06/18 Atorvastatin Calcium [Lipitor 40 mg Tablet] 40 mg PO QHS #30 tablet 09/06/18 Furosemide [Lasix 20 mg Tablet] 20 mg PO QAM #30 tablet 09/06/18 Lisinopril [Prinivil 10 mg Tablet] 20 mg PO DAILY #30 tablet 09/06/18 Potassium Chloride [Klor-Con 10 Meq Capsule ER] 10 meq PO DAILY #5 capsule.er 09/06/18 Vancomycin HCl 125 mg PO Q6H 5 Days #20 capsule 09/06/18 Allergies/Adverse Reactions: No Known Allergies Allergy (Verified 09/15/18 15:33) Review of Systems Constitutional: ABSENT: chills, fatigue, fever(s), weakness Eyes: ABSENT: visual disturbances, other - Ocular pain Ears: ABSENT: hearing changes, other - Ear pain Nose, Mouth, and Throat: ABSENT: mouth pain, sore throat Cardiovascular: ABSENT: chest pain, palpitations Respiratory: ABSENT: cough, dyspnea Gastrointestinal: PRESENT: as per HPI, diarrhea - Recent C. difficile enterocolitis, other - Decreased appetite, decreased oral fluid intake. ABSENT: abdominal pain, constipation, nausea, vomiting Genitourinary: ABSENT: dysuria, hematuria Musculoskeletal: ABSENT: back pain, joint swelling, muscle weakness Integumentary: ABSENT: pruritus, rash Neurological: ABSENT: confusion, convulsions, focal weakness, memory loss, syncope Psychiatric: ABSENT: anxiety, depression Endocrine: ABSENT: cold intolerance, heat intolerance Hematologic/Lymphatic: ABSENT: easy bleeding, easy bruising Physical Exam Vital Signs: Temp Pulse Resp BP Pulse Ox 97.6 F 81 18 97/64 L 95 09/15/18 15:36 09/15/18 15:36 09/15/18 15:36 09/15/18 15:36 09/15/18 15:36 Intake & Output 09/13/18 09/14/18 09/15/18 23:59 23:59 23:59 Weight 111.4 kg General appearance: PRESENT: no acute distress, cooperative, obese Head exam: PRESENT: atraumatic, normocephalic Eye exam: PRESENT: conjunctiva pink. ABSENT: conjunctival injection, scleral icterus Ear exam: PRESENT: normal external ear exam. ABSENT: bleeding, drainage Mouth exam: PRESENT: dry mucosa, neck supple Neck exam: ABSENT: JVD, thyromegaly, tracheal deviation Respiratory exam: PRESENT: clear to auscultation michaela, symmetrical, unlabored Cardiovascular exam: PRESENT: RRR. ABSENT: clicks, gallop, rubs Pulses: PRESENT: normal radial pulses, normal dorsalis pedis pul Vascular exam: PRESENT: normal capillary refill. ABSENT: pallor GI/Abdominal exam: PRESENT: normal bowel sounds, soft Rectal exam: PRESENT: deferred Extremities exam: ABSENT: joint swelling, pedal edema Musculoskeletal exam: PRESENT: full ROM, normal inspection. ABSENT: tenderness Neurological exam: PRESENT: alert, oriented to person, oriented to place, oriented to time, oriented to situation, CN II-XII grossly intact. ABSENT: motor sensory deficit Psychiatric exam: PRESENT: appropriate affect, normal mood Skin exam: PRESENT: dry, intact, warm. ABSENT: jaundice, rash, urticaria Results Laboratory Results: 09/15/18 18:10 09/15/18 19:25 09/15/18 09/15/18 09/15/18 18:10 18:10 19:25 WBC 8.1 RBC 3.84 L Hgb 11.9 L Hct 34.1 L MCV 89 MCH 31.0 MCHC 34.8 RDW 13.9 Plt Count 325 Seg Neutrophils % 56.2 Lymphocytes % 31.9 Monocytes % 7.7 Eosinophils % 4.0 Basophils % 0.2 Absolute Neutrophils 4.5 Absolute Lymphocytes 2.6 Absolute Monocytes 0.6 Absolute Eosinophils 0.3 Absolute Basophils 0.0 Sodium Cancelled 137.5 Potassium Cancelled 5.5 H Chloride Cancelled 100 Carbon Dioxide Cancelled 26 Anion Gap Cancelled 12 BUN Cancelled 121 H Creatinine Cancelled 4.82 H Est GFR ( Amer) Cancelled 15 L Est GFR (Non-Af Amer) Cancelled 12 L Glucose Cancelled 150 H Calcium Cancelled 9.5 Total Bilirubin Cancelled 0.3 AST Cancelled 29 ALT Cancelled 30 Alkaline Phosphatase Cancelled 71 Total Protein Cancelled 6.4 Albumin Cancelled 3.7 Assessment and Plan - Diagnosis (1) Acute kidney injury superimposed on chronic kidney disease Is this a current diagnosis for this admission?: Yes Plan: Patient will receive supportive and symptomatic care as well as IV fluids. His renal functions will be monitored frequently with daily metabolic profiles and magnesium levels as well as a daily CBC. (2) GIANNI (obstructive sleep apnea) Is this a current diagnosis for this admission?: Yes Plan: Patient be continued on his usual treatment for obstructive sleep apnea or if he does not have his mask available he will be placed on a hospital supplied apparatus. (3) Diabetes mellitus type 2 in obese Is this a current diagnosis for this admission?: Yes Plan: Patient be continued on his usual diabetic care regiment, with the exception of metformin, and a diabetic diet. Before meals and at bedtime blood sugars will be obtained and a sliding scale insulin will be used for hyperglycemia. A hypoglycemic protocol will also be placed. (4) Hypertension Qualifiers: Hypertension type: essential hypertension Qualified Code(s): I10 - Essential (primary) hypertension Is this a current diagnosis for this admission?: Yes Plan: Patient will be continued on his usual antihypertensive regimen with adjustments made for his renal failure including the discontinuation of lisinopril and the withholding of diuretics and potassium supplements at this point. Patient's blood pressure be monitored closely throughout his hospital stay. IV hydralazine 20 mg every 4 hours will be given on a as needed basis for excessive hypertension. (5) Coronary artery disease Qualifiers: Coronary Disease-Associated Artery/Lesion type: [place] artery Associated angina: without angina Is this a current diagnosis for this admission?: Yes Plan: Patient will be continued on his usual cardiac regimen with the exception of the discontinuation of lisinopril. Diuretics will be withheld at this point. Patient be observed closely for changes indicative of any acute coronary symptoms. - Time Time Spent with patient: 25-34 minutes Medications reviewed and adjusted accordingly: Yes Anticipated discharge: Home, Home with Homehealth, SNF - Inpatient Certification Based on my medical assessment, after consideration of the patient's comorbidities, presenting symptoms, or acuity I expect that the services needed warrant INPATIENT care.: Yes I certify that my determination is in accordance with my understanding of Medicare's requirements for reasonable and necessary INPATIENT services [42 CFR 412.3e].: Yes Medical Necessity: Failure to Improve With Outpatient Therapy, Significant Comorbidiites Make Outpatient Treatment Too Risky, Need Close Monitoring Due to Risk of Patient Decompensation, Need For IV Fluids, Need For Continuous Telem etry Monitoring, Risk of Complication if Not Cared For in Hospital
--- NOTE | 2018-09-18 14:47 | PDOC TRANSFER SUMMARY ---
General - Admit/Disc Date/PCP Admission Date/Primary Care Provider: 09/15/18 21:52 JESSEE HARRY MD Discharge Date: 03/21/18 - Discharge Diagnosis (1) Acute kidney injury superimposed on chronic kidney disease Is this a current diagnosis for this admission?: Yes Summary: Patient will receive supportive and symptomatic care as well as IV fluids. His renal functions will be monitored frequently with daily metabolic profiles and magnesium levels as well as a daily CBC. 09/16/[id number]-fzqx-old male admitted with acute on chronic kidney disease. Admission creatinine is 4.8 and improved to 3.22 with IV fluids. His baseline creatinine 2 weeks ago is 1.7. And is to continue the IV fluids. ILANA most likely prerenal. andres inhibitors are also discontinued. 09/17/[id number]-leea-old male admitted with ILANA on CKD. At the time of admission creatinine is 4.8 improved to 3.2 yesterday with IV fluids. Plan is to repeat the labs today but the patient refused the lab work so far. Patient's urinary output is 2.84 L. 09/18/[id number]-lxql-old male admitted with ILANA on CKD at the time of admission creatinine was 4.8 it was improved to 1.33. ILANA due to prerenal causes resolved. (2) Hyperkalemia Is this a current diagnosis for this admission?: Yes Summary: 09/16/2018-patient came in with hyperkalemia potassium is five-point 5 repeat potassium is also 5.5. To start the patient on Veltassa. 09/17/2018-patient came in with hyperkalemia potassium of 5.5 if he was given a Veltassa waiting for the labs today. 09/18/2018-patient serum potassium is 5.3 significantly improved. Low-salt diet was advised. (3) Diarrhea Is this a current diagnosis for this admission?: No (4) Diabetes mellitus type 2 in obese Is this a current diagnosis for this admission?: Yes Summary: -patient has a recent history of diarrhea diagnosed with C. difficile he completed p.o. vancomycin therapy. 09/17/2018-patient was recently diagnosed with C. difficile completed the course of p.o. vancomycin as outpatient. 09/18/2018-patient has history of C. difficile recently completed p.o. vancomycin no diarrhea during the hospital stay recorded. (5) Hypertension Is this a current diagnosis for this admission?: Yes Summary: Patient be continued on his usual diabetic care regiment, with the exception of metformin, and a diabetic diet. Before meals and at bedtime blood sugars will be obtained and a sliding scale insulin will be used for hyperglycemia. A hypoglycemic protocol will also be placed. 09/16/2018-patient has a history of type 2 diabetes mellitus presently on insulin sliding scale. To check him hemoglobin A1c and latest blood sugar is 210. 09/17/2018-patient has history of type 2 diabetes mellitus latest blood sugar is 179. Hemoglobin A1c is pending. Plan is to continue the insulin sliding scale. 09/18/2018-patient has history of type 2 diabetes mellitus latest blood sugar is 122 stable. Patient is advised to continue sliding-scale at skilled nursing. (6) Morbid obesity with BMI of 40.0-44.9, adult Is this a current diagnosis for this admission?: No (7) Urinary retention Is this a current diagnosis for this admission?: Yes Summary: 09/18/2018-pain patient initially complained of urinary retention Madsen's cathet er was placed this morning Madsen's catheter was removed and the patient is able to urinate without any problems. - Additional Information Resuscitation Status: Do Not Resuscitate Home Medications: Clopidogrel Bisulfate [Plavix 75 mg Tablet] 75 mg PO DAILY 08/31/18 Colchicine [Colchicine 0.6 mg Tablet] 0.6 mg PO DAILY 08/31/18 Gabapentin [Neurontin 300 mg Capsule] 300 mg PO Q8 08/31/18 Insulin Aspart [Novolog Flexpen] 30 unit SQ AC 08/31/18 Metformin HCl [Glucophage XR 500 mg Tablet] 500 mg PO QPM 08/31/18 Metoprolol Succinate [Toprol XL 100 mg Tablet] 100 mg PO DAILY 08/31/18 Aspirin [Ecotrin 81 mg EC Tablet] 81 mg PO DAILY #30 tabec 09/06/18 Atorvastatin Calcium [Lipitor 40 mg Tablet] 40 mg PO QHS #30 tablet 09/06/18 Furosemide [Lasix 20 mg Tablet] 20 mg PO QAM #30 tablet 09/06/18 Lisinopril [Prinivil 10 mg Tablet] 20 mg PO DAILY #30 tablet 09/06/18 Potassium Chloride [Klor-Con 10 Meq Capsule ER] 10 meq PO DAILY #5 capsule.er 09/06/18 Vancomycin HCl 125 mg PO Q6H 5 Days #20 capsule 09/06/18 Carbamazepine [Tegretol 200 Mg Tablet] 200 mg PO BID 09/16/18 History of Present Illness Admission Date/PCP: 09/15/18 21:52 JESSEE HARRY MD History of Present Illness: RUSSELL PARRA is a 67 year old male 67 year old male who presented to the emergency room from a local skilled nursing with an elevated creatinine. Patient was recently hospitalized for treatment of C. difficile and discharged to a [facility] facility for rehab. His routine blood work done 6 days after discharge showed a elevation of his serum creatinine to 5.0 from 1.8 at the time of discharge from hospital. His serum potassium was also elevated at 5.5 and his BUN was 121. His only complaints are decreased appetite and decreased oral fluid intake. He denies any other associated or accompanying symptoms. He denies prior similar problems. He is unaware of any aggravating or ameliorating factors for his elevated creatinine. It was noted from his hospital discharge that he was continued on lisinopril at the time of his discharge despite a creatinine of 1.8. In the emergency room he was found to have a creatinine of 4.82 and a BUN of 121 with a potassium of 5.5. He was subsequently admitted to hospital for further evaluation and treatment of his iatrogenic acute kidney injury. Hospital Course Hospital Course: 67-year-old male with multiple chronic medical conditions including hypertension, CAD, gout, recent C. difficile that presents to the emergency department for chief complaint of abnormal blood work from skilled nursing. Patient apparently had outpatient blood testing, that demonstrated a markedly elevated BUN, creatinine and a slightly elevated potassium of 5.5, he apparently was in acute renal failure from his baseline. He is on diuretics, and an ANDRES inhibitor, and has not been eating and drinking as much as he usually does at the skilled nursing, he is there for rehab is been there about 8 days now. He was being treated for C. difficile, was having diarrhea up until today. Complete course of p.o. vancomycin at the skilled nursing. He denies having any symptoms of chest pain, shortness of breath, difficulty breathing, nausea, vomiting or abdominal pain. He thinks he is been urinating a usual amount, but he states he is definitely drinking less, there has not been changes in his medication since going to the skilled nursing. 09/16/[id number]-bgbz-old male with multiple medical problems came from the skilled nursing with abnormal labs with elevated BUN/creatinine and hyperkalemia. Patient please recently treated with C. difficile with p.o. vancomycin. Patient is complaining of severe pains and agitated and occasionally getting confused. He does not want any pain it does not want morphine he want me to call his and get her permission to start on pain medications. As per the patient's she wants her to be on gabapentin. Order was placed. The nurses also telling me patient has a poor urinary output P going to do the bladder scan and to do the Madsen's catheter. Creatinine was slightly improved since the admission to 3.22. 09/17/[id number]-tuxj-old male admitted for acute kidney injury most likely secondary to prerenal causes he was recently treated for C. difficile with p.o. vancomycin no complaints of diarrhea anymore. His creatinine was improved to 3.26 yesterday this morning he refused his labs I went there to convince him to have labs again so we can see the improvement in his creatinine. Patient also complaining of difficulty in urination yesterday urinary cath replaced. Urinary output is excellent. Physical Exam Vital Signs: Temp Pulse Resp BP Pulse Ox 97.3 F 69 18 145/55 H 100 09/18/18 08:24 09/18/18 08:24 09/18/18 08:24 09/18/18 08:24 09/18/18 08:24 Intake & Output 09/17/18 09/18/18 09/19/18 06:59 06:59 06:59 Intake Total 3022 3577 774 Output Total 8495 2975 Balance 147 602 774 Weight 113.2 kg 114.3 kg General appearance: PRESENT: no acute distress, morbidly obese Head exam: PRESENT: atraumatic Eye exam: PRESENT: PERRLA Mouth exam: PRESENT: moist, tongue midline Neck exam: ABSENT: carotid bruit, JVD, lymphadenopathy, thyromegaly Respiratory exam: PRESENT: decreased breath sounds Cardiovascular exam: PRESENT: RRR. ABSENT: diastolic murmur, rubs, systolic murmur GI/Abdominal exam: PRESENT: normal bowel sounds, soft. ABSENT: distended, guarding, mass, organolmegaly, rebound, tenderness Rectal exam: PRESENT: deferred Extremities exam: PRESENT: full ROM. ABSENT: calf tenderness, clubbing, pedal edema Neurological exam: PRESENT: alert, awake, oriented to person, oriented to place, oriented to time, oriented to situation, CN II-XII grossly intact. ABSENT: motor sensory deficit Psychiatric exam: PRESENT: appropriate affect, normal mood. ABSENT: homicidal ideation, suicidal ideation Results Laboratory Results: 09/18/18 05:46 09/18/18 05:46 09/18/18 09/18/18 05:46 05:46 WBC 5.9 RBC 3.44 L Hgb 10.5 L Hct 30.8 L MCV 90 MCH 30.6 MCHC 34.2 RDW 13.4 Plt Count 209 Sodium 141.6 Potassium 5.3 H Chloride 110 H Carbon Dioxide 26 Anion Gap 6 BUN 31 H D Creatinine 1.33 H Est GFR ( Amer) > 60 Est GFR (Non-Af Amer) 54 L Glucose 127 H Calcium 9.1 Magnesium 1.4 L Total Bilirubin 0.3 AST 22 ALT 22 Alkaline Phosphatase 59 Total Protein 5.4 L Albumin 2.9 L 09/16/18 10:23 Catheterized Urine Urine Culture - Final NO GROWTH 2 DAYS Impressions: Renal Ultrasound 09/16/18 00:00 IMPRESSION: NORMAL RENAL AND BLADDER ULTRASOUND. No hydronephrosis. Transfer Plan - Time Spent with Patient Time spent with patient: Greater than 30 Minutes Qualifiers - * PATIENT BEING DISCHARGED WITH ANY OF THE FOLLOWING DIAGNOSIS: No VTE patient discharged on overlapping Therapy?: No Acute Heart Failure - Is this a Heart Failure Patient?: No
[2018-09-18 16:19] VITALS: BP 110/64
== END 2018-09-18 16:57 | DRG 683 ==
LOC: ER 15:18 → EH 21:52 → 4N 23:45 → 3S 09-16 11:35
PROVIDERS: ADMIT Emergency Medicine; ATTEND Emergency Medicine
DX: N17.9 Acute kidney failure, unspecified (principal); I69.351 Hemiplegia and hemiparesis following cerebral infarction affecting right dominant side; A04.72 Enterocolitis due to Clostridium difficile, not specified as recurrent; Z68.41 Body mass index [BMI] 40.0-44.9, adult; E87.5 Hyperkalemia; E86.0 Dehydration; I12.9 Hypertensive chronic kidney disease with stage 1 through stage 4 chronic kidney disease, or unspecified chronic kidney disease; E11.22 Type 2 diabetes mellitus with diabetic chronic kidney disease; N18.3 Chronic kidney disease, stage 3 (moderate); R79.9 Abnormal finding of blood chemistry, unspecified; J45.909 Unspecified asthma, uncomplicated; I25.10 Atherosclerotic heart disease of native coronary artery without angina pectoris; E78.5 Hyperlipidemia, unspecified; K21.9 Gastro-esophageal reflux disease without esophagitis; R33.9 Retention of urine, unspecified; G47.33 Obstructive sleep apnea (adult) (pediatric); E66.01 Morbid (severe) obesity due to excess calories; Z95.1 Presence of aortocoronary bypass graft; Z79.2 Long term (current) use of antibiotics; Z79.82 Long term (current) use of aspirin; Z79.4 Long term (current) use of insulin; Z79.891 Long term (current) use of opiate analgesic; Z79.899 Other long term (current) drug therapy
CPT/HCPCS: 36415; 76770; 80048; 80053; 81001; 82962; 83036; 83735; 85025; 85027; 87070; 87086; 93005; 93010; 96360; 99291; J0610; J1644; J1815; J3490; J7030; J7120

== ENCOUNTER → 2018-09-24 | Outpatient (CLI) | payer MEDICARE, OTHER ==
--- NOTE | 2018-09-25 07:52 | RADIOLOGY REPORT (SQ) ---
EXAM DESCRIPTION: FOOT LEFT COMPLETE COMPLETED DATE/TIME: 09/24/2018 6:56 pm REASON FOR STUDY: (R06.82)TACHYPNEA, NOT ELSEWHERE CLASSIFIED;(M79.672)PAIN IN LEFT FOOT R06.82 TAC HYPNEA, NOT ELSEWHERE CLASSIFIED M79.672 PAIN IN LEFT FOOT M25.572 PAIN IN LEFT ANKLE AND JOINTS OF LEFT FOOT COMPARISON: 11/08/2017 left foot three views NUMBER OF VIEWS: Three views. TECHNIQUE: AP, lateral and oblique radiographic images acquired of the left foot. LIMITATIONS: None. FINDINGS: MINERALIZATION: Normal. BONES: No acute fracture or dislocation. No worrisome bone lesions. Prominent dorsal and plantar ca lcaneal spurs. JOINTS: No tibiotalar joint effusion. There is tibiotalar joint space narrowing and bony spurring. Joint space narrowing along the intertarsal joints and tarsometatarsal joints. SOFT TISSUES: Diffuse soft tissue swelling along the dorsum of the left foot without soft tissue gas or radiopaque foreign body OTHER: No other significant finding. IMPRESSION: Diffuse soft tissue swelling. No fracture. No soft tissue gas. No radiopaque foreign body TECHNICAL DOCUMENTATION: JOB ID: [id number] [employer]- All Rights Reserved Reading location - IP/workstation name: [email or web address]
--- NOTE | 2018-09-25 07:53 | RADIOLOGY REPORT (SQ) ---
EXAM DESCRIPTION: ANKLE LEFT COMPLETE COMPLETED DATE/TIME: 09/24/2018 6:56 pm REASON FOR STUDY: (R06.82)TACHYPNEA, NOT ELSEWHERE CLASSIFIED;(M79.672)PAIN IN LEFT FOOT R06.82 TAC HYPNEA, NOT ELSEWHERE CLASSIFIED M79.672 PAIN IN LEFT FOOT M25.572 PAIN IN LEFT ANKLE AND JOINTS OF LEFT FOOT COMPARISON: Left foot three views same date NUMBER OF VIEWS: Three views. TECHNIQUE: AP, lateral, and oblique radiographic images acquired of the left ankle. LIMITATIONS: None. FINDINGS: MINERALIZATION: Normal. BONES: No acute fracture or dislocation. No worrisome bone lesions. JOINTS: No tibiotalar joint effusion or malalignment at the ankle mortise. There is joint space narr owing and mild bony spurring. SOFT TISSUES: Diffuse dorsal medial and lateral soft tissue swelling. No radiopaque foreign body. N o soft tissue gas. OTHER: Prominent dorsal and plantar calcaneal spurs IMPRESSION: Soft tissue swelling. No acute fracture or malalignment. TECHNICAL DOCUMENTATION: JOB ID: [id number] [employer]- All Rights Reserved Reading location - IP/workstation name: [email or web address]
--- NOTE | 2018-09-25 07:55 | RADIOLOGY REPORT (SQ) ---
EXAM DESCRIPTION: CHEST 2 VIEWS COMPLETED DATE/TIME: 09/24/2018 6:56 pm REASON FOR STUDY: (R06.82)TACHYPNEA, NOT ELSEWHERE CLASSIFIED;(M79.672)PAIN IN LEFT FOOT COMPARISON: Chest films 09/08/2018, 08/31/2018, 09/04/2016 EXAM PARAMETERS: NUMBER OF VIEWS: two views TECHNIQUE: Digital Frontal and Lateral radiographic views of the chest acquired. RADIATION DOSE: NA LIMITATIONS: none FINDINGS: LUNGS AND PLEURA: Bandlike scarring or atelectasis in the left upper lobe is unchanged fro m prior studies. No acute infiltrates. No pleural effusion or pneumothorax. MEDIASTINUM AND HILAR STRUCTURES: No masses or contour abnormalities. HEART AND VASCULAR STRUCTURES: Cardiac silhouette size upper limits of normal. Old sternotomy for CA BG. BONES: No acute findings. HARDWARE: None in the chest. OTHER: No other significant finding. IMPRESSION: NO ACUTE RADIOGRAPHIC FINDING IN THE CHEST. TECHNICAL DOCUMENTATION: JOB ID: [id number] [employer]- All Rights Reserved Reading location - IP/workstation name: [email or web address]
== END ==
LOC: RAD 18:03
PROVIDERS: ATTEND Family Medicine
DX: R06.82 Tachypnea, not elsewhere classified (principal); M79.672 Pain in left foot; M25.572 Pain in left ankle and joints of left foot
CPT/HCPCS: 71046

== ENCOUNTER 2018-09-25 18:48 | Inpatient (IN) | payer MEDICARE, OTHER ==
--- NOTE | 2018-09-25 19:03 | ER Document Report ---
ED General - General Stated Complaint: FEVR,LEG PAIN Time Seen by Provider: 09/25/18 19:02 Primary Care Provider: JESSEE HARRY MD [NO LOCAL MD] - Follow up as needed TRAVEL OUTSIDE OF THE [place] IN LAST 30 DAYS: No - HPI Patient complains to provider of: possible sepsis Notes: patient sent from [facility] for left leg pain and fever he has a h/o cellulitis w/ sepsis he reports progressively worsening pain in the left leg ongoing for 2-3 days fever noted today no vomiting/diarrhea/cough no belly pain or back pain no headache - Related Data Allergies/Adverse Reactions: No Known Allergies Allergy (Verified 09/15/18 15:33) Past Medical History - Social History Smoking Status: Unknown if Ever Smoked Family History: CAD, DM - Past Medical History Cardiac Medical History: Reports: Hx Coronary Artery Disease, Hx Heart Attack, Hx Hypercholesterolemia, Hx Hypertension Pulmonary Medical History: Reports: Hx Asthma - IN PAST, Hx Sleep Apnea - cpap did not help Denies: Hx Bronchitis, Hx COPD, Hx Pneumonia, Hx Tuberculosis Neurological Medical History: Reports: Hx Cerebrovascular Accident - R SIDE WEAKNESS. Denies: Hx Seizures Endocrine Medical History: Reports: Hx Diabetes Mellitus Type 2. Denies: Hx Diabetes Mellitus Type 1, Hx Hyperthyroidism, Hx Hypothyroidism Renal/ Medical History: Denies: Hx Peritoneal Dialysis GI Medical History: Reports: Hx Gastroesophageal Reflux Disease. Denies: Hx Cirrhosis, Hx Crohn's Disease, Hx Hepatitis, Hx Hiatal Hernia, Hx Ulcer, Hx Ulcerative Colitis Musculoskeletal Medical History: Reports Hx Arthritis - GENERALIZED, Denies Hx Fibromyalgia, Reports Hx Gout Skin Medical History: Reports Hx Cellulitis - Lower extremity cellulitis due to chronic edema, Denies Hx Eczema, Denies Hx Psoriasis Psychiatric Medical History: Denies: Hx Depression Traumatic Medical History: Reports: Hx Fractures - right gallegos Infectious Medical History: Reports: Hx C-Diff. Denies: Hx Hepatitis Past Surgical History: Reports: Hx Appendectomy, Hx Cardiac Catheterization, Hx Cholecystectomy, Hx Coronary Artery Bypass Graft - 5 vessels, Hx Coronary Stent, Hx Open Heart Surgery - STENT bypass. Denies: Hx Pacemaker - Immunizations Hx Diphtheria, Pertussis, Tetanus Vaccination: No Hx Pneumococcal Vaccination: 12/22/16 Review of Systems - Review of Systems Constitutional: Fever EENT: No symptoms reported Cardiovascular: No symptoms reported Respiratory: No symptoms reported Gastrointestinal: No symptoms reported Genitourinary: No symptoms reported Male Genitourinary: No symptoms reported Musculoskeletal: Leg swelling, Other - leg pain Skin: Change in color, Rash Hematologic/Lymphatic: No symptoms reported Neurological/Psychological: No symptoms reported Physical Exam - Vital signs Vitals: Temp Pulse Resp BP Pulse Ox 101.9 F H 111 H 20 138/65 H 95 09/25/18 19:40 09/25/18 19:40 09/25/18 19:40 09/25/18 19:40 09/25/18 19:40 Interpretation: Normal - General General appearance: Appears well, Alert - HEENT Head: Normocephalic, Atraumatic Eyes: Normal Pupils: PERRL - Respiratory Respiratory status: No respiratory distress Chest status: Nontender Breath sounds: Normal Chest palpation: Normal - Cardiovascular Rhythm: Regular Heart sounds: Normal auscultation Murmur: No - Abdominal Inspection: Normal Distension: No distension Bowel sounds: Normal Tenderness: Nontender Organomegaly: No organomegaly - Back Back: Normal, Nontender - Extremities General upper extremity: Normal inspection, Nontender, Normal color, Normal ROM, Normal temperature General lower extremity: Normal inspection, Nontender, Normal color, Normal ROM, Normal temperature, Normal weight bearing. No: Kiah's sign - Neurological Neuro grossly intact: Yes Cognition: Normal Orientation: AAOx4 Alex Coma Scale Eye Opening: Spontaneous Alex Coma Scale Verbal: Oriented Alex Coma Scale Motor: Obeys Commands Alex Coma Scale Total: 15 Speech: Normal Motor strength normal: LUE, RUE, LLE, RLE Sensory: Normal - Psychological Associated symptoms: Normal affect, Normal mood - Skin Skin Temperature: Hot Skin Moisture: Dry Skin Color: Erythema - LLE pain/redness Course - Re-evaluation Re-evalutation: 09/25/18 21:53 09/25/18 21:54 LLE redness and pain consistent w/ cellulitis neg for DVT labs largely ok however pt's bp has dipped down to as low as SBP 95 during fluid resuscitation broad spectrum abx started admission requested given low BP and h/o sepsis w/ previous episodes of cellulitis - Vital Signs Vital signs: Temp Pulse Resp BP Pulse Ox 101.1 F H 111 H 22 H 115/54 L 95 09/25/18 20:40 09/25/18 19:40 09/25/18 20:02 09/25/18 20:02 09/25/18 20:02 - Laboratory Result Diagrams: 09/25/18 19:02 09/25/18 19:02 Laboratory results interpreted by me: 09/25/18 09/25/18 09/25/18 19:02 19:02 19:02 RBC 3.02 L Hgb 9.4 L Hct 27.4 L Lymphocytes % 12.6 L VBG pH 7.45 H VBG pCO2 33.0 L Sodium 136.4 L Potassium 5.4 H BUN 32 H Creatinine 1.39 H Est GFR (Non-Af Amer) 51 L Glucose 203 H Total Protein 5.8 L Albumin 3.2 L Discharge - Discharge Clinical Impression: Left leg cellulitis Hypotension Qualifiers: Hypotension type: unspecified hypotension type Qualified Code(s): I95.9 - Hypotension, unspecified Condition: Stable Disposition: ADMITTED INPATIENT Unit Admitted: Telemetry Referrals: JESSEE HARRY MD [NO LOCAL MD] - Follow up as needed
[2018-09-25] MEDS ORDERED: VANCOMYCIN HCL INJ 1000 MG VIAL IV ONE (19:09)
[2018-09-25] MEDS ORDERED: PIPERACILLIN/TAZOBACTAM 3.375 GM VIAL IV ONE (19:09)
[2018-09-25 19:25] LABS: ABSOLUTE EOSINOPHILS # (AUTO) 0.1 10^3/uL (0.0-0.6); ABSOLUTE LYMPHOCYTES (AUTO) 1.1 10^3/uL (0.5-4.7); ABSOLUTE MONOCYTES (AUTO) 0.9 10^3/uL (0.1-1.4); ABSOLUTE NEUT (AUTO) 6.3 10^3/uL (1.7-8.2); BASOPHILS % (AUTO) 0.1 % (0-2); EOSINOPHILS % (AUTO) 1.2 % (0-6); HEMATOCRIT 27.4 % (37.9-51.0); HEMOGLOBIN 9.4 g/dL (13.5-17.0); LYMPHOCYTES % (AUTO) 12.6 % (13-45); MEAN CORPUSCULAR HGB CONC 34.2 g/dL (32.0-36.0); MEAN CORPUSCULAR VOLUME 91 fl (80-97); MONOCYTES % (AUTO) 11.3 % (3-13); PLATELET COUNT 185 10^3/uL (150-450); RED BLOOD COUNT 3.02 10^6/uL (4.35-5.55); RED CELL DISTRIBUTION WIDTH 13.6 % (11.5-14.0); SEGMENTED NEUTROPHILS % (AUTO) 74.8 % (42-78); TOTAL CELLS COUNTED % (AUTO) 100 %; WHITE BLOOD COUNT 8.4 10^3/uL (4.0-10.5)
[2018-09-25 19:28] LABS: VENOUS BLOOD BASE EXCESS -0.8 mmol/L; VENOUS BLOOD HCO3 22.6 mmol/L (20-32); VENOUS BLOOD PH 7.45 (7.30-7.42)
[2018-09-25 19:44] LABS: INTERNATIONAL RATION (INR) 1.13; PROTHROMBIN TIME 14.6 SEC (11.4-15.4)
[2018-09-25 19:45] LABS: ALBUMIN 3.2 g/dL (3.5-5.0); ALKALINE PHOSPHATASE 68 U/L (38-126); ANION GAP 10 (5-19); ASPARTATE AMINO TRANSFERASE 33 U/L (17-59); BILIRUBIN,DIRECT 0.3 mg/dL (0.0-0.4); BILIRUBIN,TOTAL 0.3 mg/dL (0.2-1.3); BLOOD UREA NITROGEN 32 mg/dL (7-20); CALCIUM 8.6 mg/dL (8.4-10.2); CARBON DIOXIDE 24 mmol/L (22-30); CHLORIDE 102 mmol/L (98-107); GLUCOSE 203 mg/dL (75-110); POTASSIUM 5.4 mmol/L (3.6-5.0); TOTAL PROTEIN 5.8 g/dL (6.3-8.2)
--- NOTE | 2018-09-25 20:06 | RADIOLOGY REPORT (SQ) ---
XR CHEST 1 VIEW EXAM DATE: 09/25/2018 6:53 PM CDT HISTORY: Sepsis. COMPARISON: 09/08/2018 FINDINGS: The heart size is within normal limits. No consolidation, pleural effusion, or pneumothorax is seen. Prior median sternotomy. IMPRESSION: No evidence of acute cardiopulmonary disease.
[2018-09-25] MEDS: NORMAL SALINE 1000 ML 1,000 ML IV PRN ×2 (20:43→22:38)
[2018-09-25] MEDS ORDERED: IBUPROFEN 600 MG TABLET PO ONE (20:56)
[2018-09-25] MEDS ORDERED: NORMAL SALINE 1000 ML 1,000 ML IV ONE (22:07)
[2018-09-25] MEDS ORDERED: MAG HYDROX/AL HYDROX/SIMETH SUSP 30 ML UDCUP PO PRN (22:14)
[2018-09-25] MEDS ORDERED: MAGNESIUM HYDROXIDE SUSP 30 ML UDCUP PO PRN (22:14)
[2018-09-25] MEDS ORDERED: IPRATROPIUM/ALBUTEROL 0.5-2.5 MG/3 ML AMPUL NEB PRN (22:14)
[2018-09-25] MEDS ORDERED: VANCOMYCIN HCL 0 MG in DEXTROSE 5%-WATER 250 ML IV NR (22:15)
[2018-09-25] MEDS ORDERED: NORMAL SALINE 1000 ML 1,000 ML IV PRN (22:16)
[2018-09-25] MEDS ORDERED: DEXTROSE 50%-WATER 25 GM/50 ML DISP.SYRIN IV PRN ×2 (22:17)
[2018-09-25] MEDS ORDERED: DEXTROSE 40% GEL 15 GM TUBE PO PRN ×2 (22:17)
[2018-09-25] MEDS ORDERED: GLUCAGON,HUMAN RECOMB 1 MG INJ IM PRN (22:17)
--- NOTE | 2018-09-25 22:33 | RADIOLOGY REPORT (SQ) ---
EXAM DESCRIPTION: US EXTREMITY VEINS UNILATERAL COMPLETED DATE/TME: 09/25/2018 00:00 CLINICAL HISTORY: 67 years Male LLE pain/redness COMPARISON: None. TECHNIQUE: Duplex imaging performed to evaluate the left lower extremity venous structures. Compression imaging and augmentation imaging performed. The common femoral, superficial femoral, popliteal, greater saphenous and posterior tibial veins were examined. FINDINGS: No thrombus is identified in the left lower extremity venous structures. IMPRESSION: No DVT is identified in the left lower extremity.
[2018-09-25 23:29] LABS: APPEARANCE,URINE SLIGHTLY-CLOUDY; BILIRUBIN,URINE NEGATIVE (NEGATIVE); COLOR,URINE YELLOW; GLUCOSE, URINE NEGATIVE (NEGATIVE); KETONES,URINE NEGATIVE (NEGATIVE); LEUKOCYTE ESTERASE,URINE MODERATE (NEGATIVE); NITRITE,URINE NEGATIVE (NEGATIVE); PROTEIN,URINE NEGATIVE (NEGATIVE); URINE SPECIFIC GRAVITY 1.013; UROBILINOGEN,URINE NEGATIVE mg/dL (<2.0)
[2018-09-26] MEDS ORDERED: PIPERACILLIN SODIUM/TAZOBACTAM 3.375 GM in NORMAL SALINE 100 ML IV SCH ×2
[2018-09-26] MEDS ORDERED: PIPERACILLIN/TAZOBACTAM 3.375 GM VIAL IV PRN
--- NOTE | 2018-09-26 04:14 | PDOC H&P ---
History of Present Illness Admission Date/PCP: 09/25/18 22:50 THOMAS PELAEZ MD Patient complains of: Left leg pain History of Present Illness: RUSSELL PARRA is a 67 year old male with a past medical history of coronary artery disease, hypertension, morbid obesity, sleep apnea refusing BiPAP, CKD, and recent C. difficile colitis. He is presents with 24 hours of subjective fever, left leg pain swelling and erythema. In the emergency department he is found to have borderline hypotension, fever, pain erythema and swelling to his left leg. He started on vancomycin and Zosyn then referred to the hospitalist for admission. He admits several episodes of venous stasis in this extremity in the past. Past Medical History Cardiac Medical History: Reports: Coronary Artery Disease, Myocardial Infarction, Hyperlipidema, Hypertension Pulmonary Medical History: Reports: Asthma - IN PAST, Sleep Apnea - cpap did not help Denies: Bronchitis, Chronic Obstructive Pulmonary Disease (COPD), Pneumonia, Tuberculosis Neurological Medical History: Denies: Seizures Endocrine Medical History: Reports: Diabetes Mellitus Type 2 Denies: Diabetes Mellitus Type 1, Hyperthyroidism, Hypothyroidism GI Medical History: Reports: Gastroesophageal Reflux Disease Denies: Cirrhosis, Crohn's Disease, Hepatitis, Hiatal Hernia, Ulcerative Colitis Musculoskeltal Medical History: Reports: Arthritis - GENERALIZED, Gout Denies: Fibromyalgia Skin Medical History: Denies: Eczema, Psoriasis Psychiatric Medical History: Denies: Depression Hematology: Denies: Anemia, Sickle Cell Disease, Bleeding Tendencies Infectious Medical History: Reports: Clostridium Difficile Past Surgical History Past Surgical History: Reports: Appendectomy, Cardiac Catheterization, Cho lecystectomy, Coronary Artery Bypass Graft - 5 vessels, Coronary Stent Denies: Pacemaker Social History Information Source: Patient Lives with: Alf Smoking Status: Unknown if Ever Smoked Frequency of Alcohol Use: None Hx Recreational Drug Use: No Drugs: None Hx Prescription Drug Abuse: No - Advance Directive Resuscitation Status: Full Code Family History Family History: CAD, DM, Hypertension Parental Family History Reviewed: Yes Children Family History Reviewed: Yes Sibling(s) Family History Reviewed.: Yes Medication/Allergy Home Medications: Clopidogrel Bisulfate [Plavix 75 mg Tablet] 75 mg PO DAILY 08/31/18 Colchicine [Colchicine 0.6 mg Tablet] 0.6 mg PO DAILY 08/31/18 Gabapentin [Neurontin 300 mg Capsule] 300 mg PO Q8 08/31/18 Insulin Aspart [Novolog Flexpen] 30 unit SQ AC 08/31/18 Metformin HCl [Glucophage XR 500 mg Tablet] 500 mg PO QPM 08/31/18 Metoprolol Succinate [Toprol XL 100 mg Tablet] 100 mg PO DAILY 08/31/18 Aspirin [Ecotrin 81 mg EC Tablet] 81 mg PO DAILY #30 tabec 09/06/18 Atorvastatin Calcium [Lipitor 40 mg Tablet] 40 mg PO QHS #30 tablet 09/06/18 Furosemide [Lasix 20 mg Tablet] 20 mg PO QAM #30 tablet 09/06/18 Lisinopril [Prinivil 10 mg Tablet] 20 mg PO DAILY #30 tablet 09/06/18 Potassium Chloride [Klor-Con 10 Meq Capsule ER] 10 meq PO DAILY #5 capsule.er 09/06/18 Carbamazepine [Tegretol 200 Mg Tablet] 200 mg PO BID 09/16/18 Allergies/Adverse Reactions: No Known Allergies Allergy (Verified 09/15/18 15:33) Review of Systems Constitutional: PRESENT: as per HPI, fatigue, weakness. ABSENT: chills, fever(s), headache(s), weight gain, weight loss Eyes: ABSENT: visual disturbances Ears: ABSENT: hearing changes Cardiovascular: ABSENT: chest pain, dyspnea on exertion, edema, orthropnea, palpitations Respiratory: ABSENT: cough, hemoptysis Gastrointestinal: ABSENT: abdominal pain, constipation, diarrhea, hematemesis, hematochezia, nausea, vomiting Genitourinary: ABSENT: dysuria, hematuria Musculoskeletal: ABSENT: joint swelling Integumentary: ABSENT: rash, wounds Neurological: ABSENT: abnormal gait, abnormal speech, confusion, dizziness, focal weakness, syncope Psychiatric: ABSENT: anxiety, depression, homidical ideation, suicidal ideation Endocrine: ABSENT: cold intolerance, heat intolerance, polydipsia, polyuria Hematologic/Lymphatic: ABSENT: easy bleeding, easy bruising Physical Exam Vital Signs: Temp Pulse Resp BP Pulse Ox 98.0 F 98 20 100/49 L 93 09/26/18 01:39 09/26/18 02:00 09/26/18 01:39 09/26/18 01:39 09/26/18 01:39 Intake & Output 09/24/18 09/25/18 09/26/18 11:59 11:59 11:59 Intake Total 3000 Balance 3000 Weight 115.7 kg General appearance: PRESENT: cooperative, morbidly obese, other - Chronically ill-appearing and pale Head exam: PRESENT: atraumatic, normocephalic Eye exam: PRESENT: conjunctiva pale, EOMI, PERRLA. ABSENT: scleral icterus Ear exam: PRESENT: normal external ear exam Mouth exam: PRESENT: moist, tongue midline Neck exam: ABSENT: carotid bruit, JVD, lymphadenopathy, thyromegaly Respiratory exam: PRESENT: clear to auscultation michaela. ABSENT: rales, rhonchi, wheezes Cardiovascular exam: PRESENT: RRR. ABSENT: diastolic murmur, rubs, systolic murmur Pulses: PRESENT: normal dorsalis pedis pul GI/Abdominal exam: PRESENT: normal bowel sounds, soft. ABSENT: distended, gu arding, mass, organolmegaly, rebound, tenderness Rectal exam: PRESENT: deferred Extremities exam: PRESENT: full ROM, tenderness - Circumferential left leg erythema about the lower leg without ulcer or exudate, +1 edema, other. ABSENT: calf tenderness, clubbing, pedal edema Neurological exam: PRESENT: alert, awake, oriented to person, oriented to place, oriented to time, oriented to situation, CN II-XII grossly intact. ABSENT: motor sensory deficit Psychiatric exam: PRESENT: appropriate affect, normal mood. ABSENT: homicidal ideation, suicidal ideation Skin exam: PRESENT: dry, intact, warm. ABSENT: cyanosis, rash Results Laboratory Results: 09/25/18 19:02 09/25/18 19:02 09/25/18 09/25/18 09/25/18 19:02 19:02 19:02 WBC 8.4 RBC 3.02 L Hgb 9.4 L Hct 27.4 L MCV 91 MCH 31.0 MCHC 34.2 RDW 13.6 Plt Count 185 Seg Neutrophils % 74.8 Lymphocytes % 12.6 L Monocytes % 11.3 Eosinophils % 1.2 Basophils % 0.1 Absolute Neutrophils 6.3 Absolute Lymphocytes 1.1 Absolute Monocytes 0.9 Absolute Eosinophils 0.1 Absolute Basophils 0.0 VBG pH VBG pCO2 VBG HCO3 VBG Base Excess Sodium 136.4 L Potassium 5.4 H Chloride 102 Carbon Dioxide 24 Anion Gap 10 BUN 32 H Creatinine 1.39 H Est GFR ( Amer) > 60 Est GFR (Non-Af Amer) 51 L Glucose 203 H Lactic Acid 0.9 Calcium 8.6 Total Bilirubin 0.3 AST 33 Alkaline Phosphatase 68 Total Protein 5.8 L Albumin 3.2 L Urine Color Urine Appearance Urine pH Ur Specific [place] Urine Protein Urine Glucose (UA) Urine Ketones Urine Blood Urine Nitrite Ur Leukocyte Esterase Urine WBC (Auto) Urine RBC (Auto) 09/25/18 09/25/18 19:02 23:03 WBC RBC Hgb Hct MCV MCH MCHC RDW Plt Count Seg Neutrophils % Lymphocytes % Monocytes % Eosinophils % Basophils % Absolute Neutrophils Absolute Lymphocytes Absolute Monocytes Absolute Eosinophils Absolute Basophils VBG pH 7.45 H VBG pCO2 33.0 L VBG HCO3 22.6 VBG Base Excess -0.8 Sodium Potassium Chloride Carbon Dioxide Anion Gap BUN Creatinine Est GFR ( Amer) Est GFR (Non-Af Amer) Glucose Lactic Acid Calcium Total Bilirubin AST Alkaline Phosphatase Total Protein Albumin Urine Color YELLOW Urine Appearance SLIGHTLY-CLOUDY Urine pH 5.0 Ur Specific [place] 1.013 Urine Protein NEGATIVE Urine Glucose (UA) NEGATIVE Urine Ketones NEGATIVE Urine Blood SMALL H Urine Nitrite NEGATIVE Ur Leukocyte Esterase MODERATE H Urine WBC (Auto) 44 Urine RBC (Auto) 2 Impressions: Venous Doppler Study 09/25/18 00:00 IMPRESSION: No DVT is identified in the left lower extremity. Chest X-Ray 09/25/18 18:53 IMPRESSION: No evidence of acute cardiopulmonary disease. Assessment and Plan - Diagnosis (1) Venous stasis Is this a current diagnosis for this admission?: Yes Plan: No evidence for active or acute infection, high risk for C. difficile reinfection, elevation, compression stockings (2) Hyperkalemia Is this a current diagnosis for this admission?: Yes Plan: Lactulose, follow-up chemistry (3) Morbid obesity with BMI of 40.0-44.9, adult Is this a current diagnosis for this admission?: Yes Plan: Morbid obesity will evaluate for metabolic cause with evaluation of thyroid function and dietitian consultation (4) GIANNI (obstructive sleep apnea) Is this a current diagnosis for this admission?: Yes Plan: Refuses BiPAP (5) Unable to ambulate Is this a current diagnosis for this admission?: Yes Plan: Consider PT for optimizing bed mobility (6) Anemia Is this a current diagnosis for this admission?: Yes Plan: Follow-up anemia labs (7) Chronic kidney disease, stage 3 Is this a current diagnosis for this admission?: Yes Plan: Avoid nephrotoxic meds and doses follow-up chemistry - Time Time Spent with patient: 25-34 minutes - Inpatient Certification Medical Necessity: Need Close Monitoring Due to Risk of Patient Decompensation
[2018-09-26 06:04] LABS: ANION GAP 11 (5-19); BLOOD UREA NITROGEN 32 mg/dL (7-20); CALCIUM 7.6 mg/dL (8.4-10.2); CARBON DIOXIDE 20 mmol/L (22-30); CHLORIDE 106 mmol/L (98-107); GLUCOSE 161 mg/dL (75-110); POTASSIUM 4.6 mmol/L (3.6-5.0)
[2018-09-26] MEDS: HEPARIN SOD (PORCINE) 5,000 UNIT/ML 1 ML VIAL SUBCUT SCH ×3 (06:11→22:27)
[2018-09-26 07:03] LABS: ABSOLUTE EOSINOPHILS # (AUTO) 0.2 10^3/uL (0.0-0.6); ABSOLUTE LYMPHOCYTES (AUTO) 0.6 10^3/uL (0.5-4.7); ABSOLUTE MONOCYTES (AUTO) 0.4 10^3/uL (0.1-1.4); ABSOLUTE NEUT (AUTO) 5.7 10^3/uL (1.7-8.2); BASOPHILS % (AUTO) 0.1 % (0-2); EOSINOPHILS % (AUTO) 2.4 % (0-6); HEMATOCRIT 25.8 % (37.9-51.0); HEMOGLOBIN 8.8 g/dL (13.5-17.0); LYMPHOCYTES % (AUTO) 9.5 % (13-45); MEAN CORPUSCULAR HEMOGLOBIN 30.8 pg (27.0-33.4); MEAN CORPUSCULAR HGB CONC 34.1 g/dL (32.0-36.0); MEAN CORPUSCULAR VOLUME 90 fl (80-97); MONOCYTES % (AUTO) 5.2 % (3-13); PLATELET COUNT 154 10^3/uL (150-450); RED BLOOD COUNT 2.86 10^6/uL (4.35-5.55); RED CELL DISTRIBUTION WIDTH 13.7 % (11.5-14.0); SEGMENTED NEUTROPHILS % (AUTO) 82.8 % (42-78); TOTAL CELLS COUNTED % (AUTO) 100 %; WHITE BLOOD COUNT 6.8 10^3/uL (4.0-10.5)
--- NOTE | 2018-09-26 07:35 | EKG REPORT ---
SEVERITY:- ABNORMAL ECG - SINUS RHYTHM INCOMPLETE RIGHT BUNDLE BRANCH BLOCK : Confirmed by: Sridhar Mclean MD 26-Sep-2018 07:34:43
[2018-09-26] MEDS: INSULIN LISPRO 100 UNIT/ML 3 ML VIAL SUBCUT SCH ×3 (08:08→17:15)
--- NOTE | 2018-09-26 10:41 | PDOC PROGRESS REPORT ---
Subjective Progress Note for:: 09/26/18 Subjective:: 67 year old male with a past medical history of coronary artery disease, hypertension, morbid obesity, sleep apnea refusing BiPAP, CKD, and recent C. difficile colitis. He is presents with 24 hours of subjective fever, left leg pain swelling and erythema. In the emergency department he is found to have borderline hypotension, fever, pain erythema and swelling to his left leg. He started on vancomycin and Zosyn then referred to the hospitalist for admission. He admits several episodes of venous stasis in this extremity in the past. 09/[id number]-ithp-old male halfway patient recently discharged from the hospital came back in with history of subjective fevers left leg pain swelling and erythema. The impression in the ER is patient might have a cellulitis started on IV vancomycin and Zosyn. Patient has chronic venous passes. Antibiotics are discontinued patient is presently afebrile WBC count of 11,400 and a T-max of 98.5. Patient is comfortably in the bed communicating okay. Reason For Visit: CELLULITIS DIABETES Physical Exam Vital Signs: Temp Pulse Resp BP Pulse Ox 98.8 F 82 24 H 126/55 H 94 09/26/18 07:22 09/26/18 07:22 09/26/18 07:22 09/26/18 07:22 09/26/18 07:22 Intake & Output 09/25/18 09/26/18 09/27/18 06:59 06:59 06:59 Intake Total 4300 Balance 4300 Weight 115.7 kg General appearance: PRESENT: no acute distress, cooperative, morbidly obese Head exam: PRESENT: atraumatic Eye exam: PRESENT: PERRLA Ear exam: PRESENT: normal external ear exam Mouth exam: PRESENT: moist, tongue midline Teeth exam: PRESENT: poor dentation Neck exam: ABSENT: carotid bruit, JVD, lymphadenopathy, thyromegaly Respiratory exam: PRESENT: clear to auscultation michaela. ABSENT: rales, rhonchi, wheezes Cardiovascular exam: PRESENT: RRR. ABSENT: diastolic murmur, rubs, systolic murmur GI/Abdominal exam: PRESENT: normal bowel sounds, soft. ABSENT: distended, guar ding, mass, organolmegaly, rebound, tenderness Rectal exam: PRESENT: deferred Extremities exam: PRESENT: other - Lower leg erythema present look like secondary to venous dialysis 1+ pedal edema in both legs. Neurological exam: PRESENT: alert, awake, oriented to person, oriented to place, oriented to time, oriented to situation, CN II-XII grossly intact. ABSENT: motor sensory deficit Results Laboratory Results: 09/26/18 06:45 09/26/18 04:09 09/25/18 09/25/18 09/25/18 19:02 19:02 19:02 WBC 8.4 RBC 3.02 L Hgb 9.4 L Hct 27.4 L MCV 91 MCH 31.0 MCHC 34.2 RDW 13.6 Plt Count 185 Seg Neutrophils % 74.8 Lymphocytes % 12.6 L Monocytes % 11.3 Eosinophils % 1.2 Basophils % 0.1 Absolute Neutrophils 6.3 Absolute Lymphocytes 1.1 Absolute Monocytes 0.9 Absolute Eosinophils 0.1 Absolute Basophils 0.0 VBG pH VBG pCO2 VBG HCO3 VBG Base Excess Sodium 136.4 L Potassium 5.4 H Chloride 102 Carbon Dioxide 24 Anion Gap 10 BUN 32 H Creatinine 1.39 H Est GFR ( Amer) > 60 Est GFR (Non-Af Amer) 51 L Glucose 203 H Lactic Acid 0.9 Calcium 8.6 Total Bilirubin 0.3 AST 33 Alkaline Phosphatase 68 Total Protein 5.8 L Albumin 3.2 L Urine Color Urine Appearance Urine pH Ur Specific [place] Urine Protein Urine Glucose (UA) Urine Ketones Urine Blood Urine Nitrite Ur Leukocyte Esterase Urine WBC (Auto) Urine RBC (Auto) 09/25/18 09/25/18 09/26/18 19:02 23:03 04:09 WBC Cancelled RBC Cancelled Hgb Cancelled Hct Cancelled MCV Cancelled MCH Cancelled MCHC Cancelled RDW Cancelled Plt Count Cancelled Seg Neutrophils % Cancelled Lymphocytes % Cancelled Monocytes % Cancelled Eosinophils % Cancelled Basophils % Cancelled Absolute Neutrophils Cancelled Absolute Lymphocytes Cancelled Absolute Monocytes Cancelled Absolute Eosinophils Cancelled Absolute Basophils Cancelled VBG pH 7.45 H VBG pCO2 33.0 L VBG HCO3 22.6 VBG Base Excess -0.8 Sodium Potassium Chloride Carbon Dioxide Anion Gap BUN Creatinine Est GFR ( Amer) Est GFR (Non-Af Amer) Glucose Lactic Acid Calcium Total Bilirubin AST Alkaline Phosphatase Total Protein Albumin Urine Color YELLOW Urine Appearance SLIGHTLY-CLOUDY Urine pH 5.0 Ur Specific [place] 1.013 Urine Protein NEGATIVE Urine Glucose (UA) NEGATIVE Urine Ketones NEGATIVE Urine Blood SMALL H Urine Nitrite NEGATIVE Ur Leukocyte Esterase MODERATE H Urine WBC (Auto) 44 Urine RBC (Auto) 2 09/26/18 09/26/18 04:09 06:45 WBC 6.8 RBC 2.86 L Hgb 8.8 L Hct 25.8 L MCV 90 MCH 30.8 MCHC 34.1 RDW 13.7 Plt Count 154 Seg Neutrophils % 82.8 H Lymphocytes % 9.5 L Monocytes % 5.2 Eosinophils % 2.4 Basophils % 0.1 Absolute Neutrophils 5.7 Absolute Lymphocytes 0.6 Absolute Monocytes 0.4 Absolute Eosinophils 0.2 Absolute Basophils 0.0 VBG pH VBG pCO2 VBG HCO3 VBG Base Excess Sodium 137.3 Potassium 4.6 Chloride 106 Carbon Dioxide 20 L Anion Gap 11 BUN 32 H Creatinine 1.56 H Est GFR ( Amer) 54 L Est GFR (Non-Af Amer) 45 L Glucose 161 H Lactic Acid Calcium 7.6 L Total Bilirubin AST Alkaline Phosphatase Total Protein Albumin Urine Color Urine Appearance Urine pH Ur Specific [place] Urine Protein Urine Glucose (UA) Urine Ketones Urine Blood Urine Nitrite Ur Leukocyte Esterase Urine WBC (Auto) Urine RBC (Auto) Impressions: Venous Doppler Study 09/25/18 00:00 IMPRESSION: No DVT is identified in the left lower extremity. Chest X-Ray 09/25/18 18:53 IMPRESSION: No evidence of acute cardiopulmonary disease. Assessment and Plan - Diagnosis (1) Venous stasis Is this a current diagnosis for this admission?: Yes Plan: No evidence for active or acute infection, high risk for C. difficile reinfection, elevation, compression stockings 09/26/2018-patient has a chronic bilateral lower extremity venous dialysis. Erythema most likely secondary to left lower leg venous dialysis. Presently off the antibiotics. Afebrile. WBC within normal range. blood Cultures urine cultures are pending. (2) Hyperkalemia Is this a current diagnosis for this admission?: Yes Plan: Lactulose, follow-up chemistry 09/26/2018-patient came in with high potassium with the lactulose potassium is improved to 4.6 today. Hyperkalemia is resolved. (3) Coronary artery disease Qualifiers: Coronary Disease-Associated Artery/Lesion type: [place] artery Associated angina: without angina Is this a current diagnosis for this admission?: No Plan: 09/26/2018-patient has a history of coronary artery disease no complaints of chest pain this hospital stay. (4) Anemia Is this a current diagnosis for this admission?: Yes Plan: Follow-up anemia labs 09/26/2018-patient hemoglobin is 8.8 most likely secondary to anemia of chronic disease due to chronic CKD. Plan is to follow the anemia work-up. (5) GIANNI (obstructive sleep apnea) Is this a current diagnosis for this admission?: Yes Plan: Refuses BiPAP 09/26/2018-patient has history of obstructive sleep apnea he is refusing to wear the BiPAP. Pulse ox is a 95% on room air. (6) Diabetes mellitus type 2 in obese Is this a current diagnosis for this admission?: No Plan: 09/26/2018-patient has history of type 2 diabetes mellitus latest blood sugar is 239. Presently on insulin sliding scale before meals and at bedtime to check hemoglobin A1c. (7) Unable to ambulate Is this a current diagnosis for this admission?: Yes Plan: Consider PT for optimizing bed mobility 09/26/2018-patient is bedbound unable to walk he is from [place] halfway. Once he is stable he will go back to [place] halfway. - Time Time Spent with patient: 25-34 minutes Medications reviewed and adjusted accordingly: Yes Anticipated discharge: SNF
[2018-09-26] MEDS: INSULIN GLARGINE,HUM.REC.ANLOG 1,000 UNIT/10 ML VIAL SUBCUT SCH (22:30)
[2018-09-27] MEDS: HEPARIN SOD (PORCINE) 5,000 UNIT/ML 1 ML VIAL SUBCUT SCH ×3 (05:03→21:37)
[2018-09-27 05:59] LABS: ABSOLUTE EOSINOPHILS # (AUTO) 0.2 10^3/uL (0.0-0.6); ABSOLUTE MONOCYTES (AUTO) 0.3 10^3/uL (0.1-1.4); ABSOLUTE NEUT (AUTO) 3.9 10^3/uL (1.7-8.2); BASOPHILS % (AUTO) 0.1 % (0-2); EOSINOPHILS % (AUTO) 4.5 % (0-6); HEMATOCRIT 24.8 % (37.9-51.0); HEMOGLOBIN 8.5 g/dL (13.5-17.0); LYMPHOCYTES % (AUTO) 17.6 % (13-45); MEAN CORPUSCULAR HGB CONC 34.3 g/dL (32.0-36.0); MEAN CORPUSCULAR VOLUME 90 fl (80-97); MONOCYTES % (AUTO) 6.2 % (3-13); PLATELET COUNT 166 10^3/uL (150-450); RED BLOOD COUNT 2.75 10^6/uL (4.35-5.55); RED CELL DISTRIBUTION WIDTH 13.6 % (11.5-14.0); SEGMENTED NEUTROPHILS % (AUTO) 71.6 % (42-78); TOTAL CELLS COUNTED % (AUTO) 100 %; WHITE BLOOD COUNT 5.5 10^3/uL (4.0-10.5)
[2018-09-27 06:24] LABS: ALBUMIN 2.7 g/dL (3.5-5.0); ALKALINE PHOSPHATASE 57 U/L (38-126); ANION GAP 10 (5-19); ASPARTATE AMINO TRANSFERASE 25 U/L (17-59); BILIRUBIN,DIRECT 0.2 mg/dL (0.0-0.4); BILIRUBIN,TOTAL 0.2 mg/dL (0.2-1.3); BLOOD UREA NITROGEN 20 mg/dL (7-20); CALCIUM 8.3 mg/dL (8.4-10.2); CARBON DIOXIDE 21 mmol/L (22-30); CHLORIDE 109 mmol/L (98-107); GLUCOSE 232 mg/dL (75-110); POTASSIUM 4.5 mmol/L (3.6-5.0); TOTAL PROTEIN 5.4 g/dL (6.3-8.2)
[2018-09-27] MEDS: INSULIN LISPRO 100 UNIT/ML 3 ML VIAL SUBCUT SCH ×3 (08:29→16:56)
[2018-09-27] MEDS: LEVOFLOXACIN 500 MG/D5W RTU 500 MG/100 ML RTUPB IV SCH (09:41)
--- NOTE | 2018-09-27 10:29 | PDOC PROGRESS REPORT ---
Subjective Progress Note for:: 09/27/18 Subjective:: 67 year old male with a past medical history of coronary artery disease, hypertension, morbid obesity, sleep apnea refusing BiPAP, CKD, and recent C. difficile colitis. He is presents with 24 hours of subjective fever, left leg pain swelling and erythema. In the emergency department he is found to have borderline hypotension, fever, pain erythema and swelling to his left leg. He started on vancomycin and Zosyn then referred to the hospitalist for admission. He admits several episodes of venous stasis in this extremity in the past. 09/26/[id number]-qdcy-old male assisted patient recently discharged from the hospital came back in with history of subjective fevers left leg pain swelling and erythema. The impression in the ER is patient might have a cellulitis started on IV vancomycin and Zosyn. Patient has chronic venous passes. Antibiotics are discontinued patient is presently afebrile WBC count of 11,400 and a T-max of 98.5. Patient is comfortably in the bed communicating okay. 09/[id number]-jivj-old male admitted from the assisted with subjective fevers, leg pains especially the left leg with erythema of the left leg. Patient has chronic venous dialysis. But the blood cultures came back positive for gram- negative rods started on IV levo floxacillin today. No acute events in the last 24 hours. Afebrile. T-max is 98.1. WBC count is 5500. Reason For Visit: CELLULITIS/DM Physical Exam Vital Signs: Temp Pulse Resp BP Pulse Ox 98.1 F 90 24 H 153/67 H 98 09/27/18 08:06 09/27/18 08:06 09/27/18 08:06 09/27/18 08:06 09/27/18 08:06 Intake & Output 09/26/18 09/27/18 09/28/18 06:59 06:59 06:59 Intake Total 4300 440 Balance 4300 440 Weight 115.7 kg 118.8 kg General appearance: PRESENT: no acute distress, cooperative, morbidly obese Head exam: PRESENT: atraumatic Eye exam: PRESENT: PERRLA Mouth exam: PRESENT: moist, tongue midline Teeth exam: PRESENT: poor dentation Neck exam: ABSENT: carotid bruit, JVD, lymphadenopathy, thyromegaly Respiratory exam: PRESENT: clear to auscultation michaela. ABSENT: rales, rhonchi, wheezes Cardiovascular exam: PRESENT: RRR. ABSENT: diastolic murmur, rubs, systolic murmur GI/Abdominal exam: PRESENT: normal bowel sounds, soft. ABSENT: distended, guarding, mass, organolmegaly, rebound, tenderness Rectal exam: PRESENT: deferred Extremities exam: PRESENT: +1 edema, other - Chronic erythema left lower leg. Most likely secondary to venous stasis. Neurological exam: PRESENT: alert Psychiatric exam: PRESENT: anxious Results Laboratory Results: 09/27/18 05:31 09/27/18 05:31 09/27/18 09/27/18 05:31 05:31 WBC 5.5 RBC 2.75 L Hgb 8.5 L Hct 24.8 L MCV 90 MCH 31.0 MCHC 34.3 RDW 13.6 Plt Count 166 Seg Neutrophils % 71.6 Lymphocytes % 17.6 Monocytes % 6.2 Eosinophils % 4.5 Basophils % 0.1 Absolute Neutrophils 3.9 Absolute Lymphocytes 1.0 Absolute Monocytes 0.3 Absolute Eosinophils 0.2 Absolute Basophils 0.0 Sodium 139.7 Potassium 4.5 Chloride 109 H Carbon Dioxide 21 L Anion Gap 10 BUN 20 Creatinine 1.03 Est GFR ( Amer) > 60 Est GFR (Non-Af Amer) > 60 Glucose 232 H Calcium 8.3 L Magnesium 1.3 L Total Bilirubin 0.2 AST 25 Alkaline Phosphatase 57 Total Protein 5.4 L Albumin 2.7 L Impressions: Venous Doppler Study 09/25/18 00:00 IMPRESSION: No DVT is identified in the left lower extremity. Chest X-Ray 09/25/18 18:53 IMPRESSION: No evidence of acute cardiopulmonary disease. Assessment and Plan - Diagnosis (1) Venous stasis Is this a current diagnosis for this admission?: Yes Plan: No evidence for active or acute infection, high risk for C. difficile reinfection, elevation, compression stockings 09/26/2018-patient has a chronic bilateral lower extremity venous dialysis. Erythema most likely secondary to left lower leg venous dialysis. Presently off the antibiotics. Afebrile. WBC within normal range. blood Cultures urine c ultures are pending. 09/27/2018-patient has a chronic bilateral lower extremity edema with venous ben lysis. On examination there is no increased warmth no tenderness of the left lower quadrant. But the blood cultures came back positive for gram-negative rods. Started on IV levo floxacillin yesterday. (2) Hyperkalemia Is this a current diagnosis for this admission?: Yes Plan: Lactulose, follow-up chemistry 09/26/2018-patient came in with high potassium with the lactulose potassium is improved to 4.6 today. Hyperkalemia is resolved. 09/27/2018-patient has history of came in with hyperkalemia today is potassium is 4.5 hyperkalemia is resolved. (3) Coronary artery disease Qualifiers: Coronary Disease-Associated Artery/Lesion type: [place] artery Associated angina: without angina Is this a current diagnosis for this admission?: No Plan: 09/26/2018-patient has a history of coronary artery disease no complaints of chest pain this hospital stay. 09/27/2018-no complaints of chest pains today. (4) Anemia Is this a current diagnosis for this admission?: Yes Plan: Follow-up anemia labs 09/26/2018-patient hemoglobin is 8.8 most likely secondary to anemia of chronic disease due to chronic CKD. Plan is to follow the anemia work-up. 09/27/2018-patient's latest hemoglobin is 8.5 stable. He has a history of anemia of chronic disease. (5) GIANNI (obstructive sleep apnea) Is this a current diagnosis for this admission?: Yes Plan: Refuses BiPAP 09/26/2018-patient has history of obstructive sleep apnea he is refusing to wear the BiPAP. Pulse ox is a 95% on room air. 09/27/2018-patient BMI is more than 42 and has history of obstructive sleep apnea but he is refusing to wear the BiPAP during this hospital stay. Exercise weight loss lifestyle modifications are discussed with the patient. (6) Diabetes mellitus type 2 in obese Is this a current diagnosis for this admission?: No Plan: 09/26/2018-patient has history of type 2 diabetes mellitus latest blood sugar is 239. Presently on insulin sliding scale before meals and at bedtime to check hemoglobin A1c. 09/27/2018-patient latest blood sugar was 232 hemoglobin A1c 7.8. Stable. (7) Unable to ambulate Is this a current diagnosis for this admission?: Yes - Time Time Spent with patient: 15-24 minutes Medications reviewed and adjusted accordingly: Yes Anticipated discharge: SNF
[2018-09-27] MEDS ORDERED: LORAZEPAM INJ 2 MG/1 ML VIAL IV PRN (10:38)
[2018-09-27] MEDS ORDERED: LORAZEPAM INJ 2 MG/1 ML VIAL ONE ×2 (10:39→13:49)
[2018-09-27] MEDS ORDERED: LORAZEPAM INJ 2 MG/1 ML VIAL IM ONE (11:00)
[2018-09-27] MEDS: GABAPENTIN 300 MG CAPSULE PO SCH ×2 (16:38→21:37)
[2018-09-27] MEDS: CARBAMAZEPINE 200 MG TABLET PO SCH ×3 (17:08→22:02)
[2018-09-27] MEDS ORDERED: ZIPRASIDONE MESYLATE INJ/PF 20 MG SDV IM ONE (19:00)
[2018-09-27] MEDS: ATORVASTATIN CALCIUM 40 MG TABLET PO SCH (21:37)
[2018-09-27] MEDS: LORAZEPAM INJ 2 MG/1 ML VIAL IV PRN (21:37)
[2018-09-27] MEDS: INSULIN GLARGINE,HUM.REC.ANLOG 1,000 UNIT/10 ML VIAL SUBCUT SCH (21:44)
[2018-09-27] MEDS: LEVETIRACETAM 500 MG/NACL-ISO 500 MG/100 ML RTUPB IV SCH (22:43)
[2018-09-28] MEDS: LORAZEPAM INJ 2 MG/1 ML VIAL IV PRN ×2 (00:43→08:19)
[2018-09-28] MEDS: HEPARIN SOD (PORCINE) 5,000 UNIT/ML 1 ML VIAL SUBCUT SCH ×3 (05:46→21:18)
[2018-09-28] MEDS: GABAPENTIN 300 MG CAPSULE PO SCH ×3 (05:46→21:19)
[2018-09-28] MEDS: INSULIN LISPRO 100 UNIT/ML 3 ML VIAL SUBCUT SCH ×3 (09:55→17:14)
[2018-09-28] MEDS: LEVETIRACETAM 500 MG/NACL-ISO 500 MG/100 ML RTUPB IV SCH ×2 (09:58→21:18)
[2018-09-28] MEDS: LEVOFLOXACIN 500 MG/D5W RTU 500 MG/100 ML RTUPB IV SCH (10:40)
[2018-09-28] MEDS ORDERED: HALOPERIDOL LACTATE INJ 5 MG/1 ML VIAL IV PRN (14:08)
--- NOTE | 2018-09-28 14:12 | Progress Note Acknowledgement ---
Progress Note Acknowledgement Progess Note Acknowledgement: I, the undersigned member of the medical staff with appropriate privileges and with supervisory authority over [ PAC ], a dependent practice allied health professional, acknowledge that I have reviewed the progress notes entered on this patient, and in my professional judgment believe that the assessment made and/or any care evidenced was appropriate
--- NOTE | 2018-09-28 14:27 | PDOC PROGRESS REPORT ---
Subjective Progress Note for:: 09/28/18 Subjective:: 09/28/2018 patient is being seen today for sepsis with Klebsiella in the urine as well as the blood patient also has a cellulitis of the left lower extremity. Doppler showed no DVT. Patient was recently treated for C. difficile in the hospital. Reason For Visit: CELLULITIS/DM 09/28/2018 patient has past medical history of multiple problems with recent C. difficile colitis patient was thought to be septic when he presented to the emergency room on admission with left leg pain. He was started on vancomycin and Zosyn and has been switched to have a Levaquin Patient recently has also been having recent episodes of agitation and confusion to where he has to be physically restrained in the bed Physical Exam Vital Signs: Temp Pulse Resp BP Pulse Ox 98.9 F 109 H 48 H 156/80 H 100 09/28/18 11:02 09/28/18 11:02 09/28/18 11:02 09/28/18 11:02 09/28/18 11:02 Intake & Output 09/27/18 09/28/18 09/29/18 06:59 06:59 06:59 Intake Total 440 220 100 Balance 440 220 100 Weight 118.8 kg 114.6 kg General appearance: PRESENT: mild distress Respiratory exam: PRESENT: clear to auscultation michaela. ABSENT: rales, rhonchi, wheezes Cardiovascular exam: PRESENT: RRR. ABSENT: diastolic murmur, rubs, systolic murmur GI/Abdominal exam: PRESENT: normal bowel sounds, soft. ABSENT: distended, guarding, mass, organolmegaly, rebound, tenderness Neurological exam: PRESENT: altered, other - Patient is confused thinking he is at [employer], patient is fighting with the nurses to get out of bed, patient is refusing to take p.o.'s patient is also somnolent Psychiatric exam: PRESENT: agitated, anxious Results Laboratory Results: 09/27/18 05:31 09/27/18 05:31 09/25/18 20:00 Blood Blood Culture - Final Klebsiella Pneumoniae 09/25/18 23:03 Clean Catch Midstream Urine Culture - Final Klebsiella Pneumoniae Impressions: Venous Doppler Study 09/25/18 00:00 IMPRESSION: No DVT is identified in the left lower extremity. Chest X-Ray 09/25/18 18:53 IMPRESSION: No evidence of acute cardiopulmonary disease. Assessment and Plan - Diagnosis (1) Anemia Is this a current diagnosis for this admission?: Yes Plan: Follow-up anemia labs 09/26/2018-patient hemoglobin is 8.8 most likely secondary to anemia of chronic disease due to chronic CKD. Plan is to follow the anemia work-up. 09/27/2018-patient's latest hemoglobin is 8.5 stable. He has a history of anemia of chronic disease. 09/28/2017 hemoglobin is 8.5 hematocrit 24.8 able. (2) Left leg cellulitis Is this a current diagnosis for this admission?: Yes Plan: 09/28/2018 patient was on bank Comycin and Zosyn this is been switched to IV Levaquin in secondary to Klebsiella gram-negative rods (3) Acute kidney injury Is this a current diagnosis for this admission?: Yes Plan: 09/28/2018 BUN of 20 creatinine 1.0 (4) Cellulitis Qualifiers: Site of cellulitis: extremity Site of cellulitis of extremity: lower extremity Laterality: unspecified laterality Qualified Code(s): L03.119 - Cellulitis of unspecified part of limb Is this a current diagnosis for this admission?: Yes Plan: 09/28/2018 patient was on Vanco and Zosyn has been switched to IV Levaquin due to Klebsiella in his urine and blood (5) Coronary artery disease Qualifiers: Coronary Disease-Associated Artery/Lesion type: [place] artery Associated angina: without angina Is this a current diagnosis for this admission?: Yes Plan: 09/26/2018-patient has a history of coronary artery disease no complaints of chest pain this hospital stay. 09/27/2018-no complaints of chest pains today. 09/28/2018 patient is status post CO in coronary artery disease. No complaints of chest pain. (6) Diabetes Qualifiers: Diabetes mellitus type: type 2 Diabetes mellitus mcc insulin use: with mcc use Diabetes mellitus complication status: with skin complications Diabetes mellitus complication detail: with other skin complication Qualified Code(s): E11.628 - Type 2 diabetes mellitus with other skin complications; Z79.4 - shelter (current) use of insulin; Z79.4 - termite exterminator helper (current) use of insulin; Z79.4 - termite exterminator helper (current) use of insulin; Z79.4 - termite exterminator helper (current) use of insulin Is this a current diagnosis for this admission?: Yes Plan: 09/28/2018 Coast level today was 265 and is well controlled (7) Encephalopathy Is this a current diagnosis for this admission?: Yes Plan: 09/28/2018 lactic acid levels and ammonia levels are pending. Psychiatric consult has been made for agitation. Patient was placed on Haldol every 4 hours as needed (8) History of CVA (cerebrovascular accident) Is this a current diagnosis for this admission?: Yes Plan: 09/28/2018 patient has no focal deficits globally he is agitated and confused (9) Morbid obesity with BMI of 40.0-44.9, adult Is this a current diagnosis for this admission?: Yes (10) GIANNI (obstructive sleep apnea) Is this a current diagnosis for this admission?: Yes Plan: Refuses BiPAP 09/26/2018-patient has history of obstructive sleep apnea he is refusing to wear the BiPAP. Pulse ox is a 95% on room air. 09/27/2018-patient BMI is more than 42 and has history of obstructive sleep apnea but he is refusing to wear the BiPAP during this hospital stay. Exercise weight loss lifestyle modifications are discussed with the patient. 09/28/2018 patient is still refusing to wear his BiPAP oxygen saturation is 93% on 4 L (11) SIRS (systemic inflammatory response syndrome) Is this a current diagnosis for this admission?: Yes Plan: Patient is currently on antibiotics IV his cellulitis as well as his sepsis - Time Time Spent with patient: 35 or more minutes
[2018-09-28 15:13] LABS: ABSOLUTE EOSINOPHILS # (AUTO) 0.2 10^3/uL (0.0-0.6); ABSOLUTE LYMPHOCYTES (AUTO) 1.2 10^3/uL (0.5-4.7); ABSOLUTE MONOCYTES (AUTO) 0.4 10^3/uL (0.1-1.4); ABSOLUTE NEUT (AUTO) 4.1 10^3/uL (1.7-8.2); BASOPHILS % (AUTO) 0.3 % (0-2); EOSINOPHILS % (AUTO) 3.2 % (0-6); HEMATOCRIT 27.8 % (37.9-51.0); HEMOGLOBIN 9.3 g/dL (13.5-17.0); LYMPHOCYTES % (AUTO) 20.1 % (13-45); MEAN CORPUSCULAR HEMOGLOBIN 30.3 pg (27.0-33.4); MEAN CORPUSCULAR HGB CONC 33.5 g/dL (32.0-36.0); MEAN CORPUSCULAR VOLUME 90 fl (80-97); MONOCYTES % (AUTO) 6.9 % (3-13); PLATELET COUNT 196 10^3/uL (150-450); RED BLOOD COUNT 3.07 10^6/uL (4.35-5.55); RED CELL DISTRIBUTION WIDTH 13.4 % (11.5-14.0); SEGMENTED NEUTROPHILS % (AUTO) 69.5 % (42-78); TOTAL CELLS COUNTED % (AUTO) 100 %
[2018-09-28 15:35] LABS: ALBUMIN 3.3 g/dL (3.5-5.0); ALKALINE PHOSPHATASE 60 U/L (38-126); ANION GAP 6 (5-19); ASPARTATE AMINO TRANSFERASE 72 U/L (17-59); BILIRUBIN,DIRECT 0.2 mg/dL (0.0-0.4); BILIRUBIN,TOTAL 0.2 mg/dL (0.2-1.3); BLOOD UREA NITROGEN 13 mg/dL (7-20); CALCIUM 9.5 mg/dL (8.4-10.2); CARBON DIOXIDE 29 mmol/L (22-30); CHLORIDE 107 mmol/L (98-107); GLUCOSE 207 mg/dL (75-110); POTASSIUM 4.5 mmol/L (3.6-5.0); TOTAL PROTEIN 6.4 g/dL (6.3-8.2)
[2018-09-28] MEDS: FUROSEMIDE 20 MG TABLET PO SCH (17:07)
[2018-09-28] MEDS: COLCHICINE 0.6 MG TABLET PO SCH (17:07)
[2018-09-28] MEDS: ASPIRIN 81 MG TABLET, ENT COATED PO SCH (17:07)
[2018-09-28] MEDS: METOPROLOL SUCCINATE 50 MG TAB.SR.24H PO SCH (17:08)
[2018-09-28] MEDS: CLOPIDOGREL BISULFATE 75 MG TABLET PO SCH (17:08)
[2018-09-28] MEDS: LISINOPRIL 10 MG TABLET PO SCH (17:08)
[2018-09-28] MEDS: CARBAMAZEPINE 200 MG TABLET PO SCH ×2 (17:08→21:19)
[2018-09-28] MEDS: INSULIN GLARGINE,HUM.REC.ANLOG 1,000 UNIT/10 ML VIAL SUBCUT SCH (21:17)
[2018-09-28] MEDS: ATORVASTATIN CALCIUM 40 MG TABLET PO SCH (21:18)
[2018-09-29] MEDS: HEPARIN SOD (PORCINE) 5,000 UNIT/ML 1 ML VIAL SUBCUT SCH ×3 (05:40→22:10)
[2018-09-29] MEDS: GABAPENTIN 300 MG CAPSULE PO SCH ×3 (05:40→21:54)
[2018-09-29] MEDS: INSULIN LISPRO 100 UNIT/ML 3 ML VIAL SUBCUT SCH ×3 (08:34→16:41)
[2018-09-29] MEDS: FUROSEMIDE 20 MG TABLET PO SCH (08:42)
[2018-09-29] MEDS: LISINOPRIL 10 MG TABLET PO SCH (08:56)
[2018-09-29] MEDS: CLOPIDOGREL BISULFATE 75 MG TABLET PO SCH (08:59)
[2018-09-29] MEDS: ASPIRIN 81 MG TABLET, ENT COATED PO SCH (08:59)
[2018-09-29] MEDS: COLCHICINE 0.6 MG TABLET PO SCH (08:59)
[2018-09-29] MEDS: METOPROLOL SUCCINATE 50 MG TAB.SR.24H PO SCH (08:59)
[2018-09-29] MEDS: CARBAMAZEPINE 200 MG TABLET PO SCH ×2 (09:04→21:54)
--- NOTE | 2018-09-29 10:42 | PDOC PROGRESS REPORT ---
Subjective Progress Note for:: 09/29/18 Subjective:: 09/28/2018 patient is being seen today for sepsis with Klebsiella in the urine as well as the blood patient also has a cellulitis of the left lower extremity. Doppler showed no DVT. Patient was recently treated for C. difficile in the hospital. 09/29/2018 patient appears much more lucid today although he still is oriented to person and place as well as time, at least is not agitated and combative. Blood pressure 167/68 temp 98.8 pulse 93 respirations 20 O2 sat 100% on 5 L, I will try to wean him down today. Patient's white count remains normal H&H is stable electrolytes are normal glucose is around 200, lactic acid is normal 1.4 ammonia is normal at 8.7 Both urine and blood grew out Klebsiella which is sensitive to levofloxacin which he is on Reason For Visit: CELLULITIS/DM Physical Exam Vital Signs: Temp Pulse Resp BP Pulse Ox 98.8 F 93 20 167/68 H 100 09/29/18 07:47 09/29/18 07:47 09/29/18 07:47 09/29/18 07:47 09/29/18 07:47 Intake & Output 09/28/18 09/29/18 09/30/18 06:59 06:59 06:59 Intake Total 220 370 Balance 220 370 Weight 114.6 kg 113.1 kg General appearance: PRESENT: no acute distress, well-developed, well-nourished Head exam: PRESENT: atraumatic, normocephalic Respiratory exam: PRESENT: clear to auscultation michaela. ABSENT: rales, rhonchi, wheezes Cardiovascular exam: PRESENT: RRR. ABSENT: diastolic murmur, rubs, systolic murmur Neurological exam: PRESENT: alert, awake, other - Disoriented to person place and time and situation, but not combative, or agitated today Psychiatric exam: PRESENT: appropriate affect, normal mood, other - Psych consu lt pending for today, this may be nothing more than just a encephalopathy status post hypoxia and CVA. ABSENT: homicidal ideation, suicidal ideation Results Laboratory Results: 09/28/18 15:05 09/28/18 15:05 09/28/18 09/28/18 09/28/18 15:05 15:05 15:05 WBC 6.0 RBC 3.07 L Hgb 9.3 L Hct 27.8 L MCV 90 MCH 30.3 MCHC 33.5 RDW 13.4 Plt Count 196 Seg Neutrophils % 69.5 Lymphocytes % 20.1 Monocytes % 6.9 Eosinophils % 3.2 Basophils % 0.3 Absolute Neutrophils 4.1 Absolute Lymphocytes 1.2 Absolute Monocytes 0.4 Absolute Eosinophils 0.2 Absolute Basophils 0.0 Sodium Potassium Chloride Carbon Dioxide Anion Gap BUN Creatinine Est GFR ( Amer) Est GFR (Non-Af Amer) Glucose Lactic Acid 1.4 Calcium Total Bilirubin AST Alkaline Phosphatase Ammonia < 8.7 L Total Protein Albumin 09/28/18 15:05 WBC RBC Hgb Hct MCV MCH MCHC RDW Plt Count Seg Neutrophils % Lymphocytes % Monocytes % Eosinophils % Basophils % Absolute Neutrophils Absolute Lymphocytes Absolute Monocytes Absolute Eosinophils Absolute Basophils Sodium 141.9 Potassium 4.5 Chloride 107 Carbon Dioxide 29 Anion Gap 6 BUN 13 Creatinine 0.95 Est GFR ( Amer) > 60 Est GFR (Non-Af Amer) > 60 Glucose 207 H Lactic Acid Calcium 9.5 Total Bilirubin 0.2 AST 72 H Alkaline Phosphatase 60 Ammonia Total Protein 6.4 Albumin 3.3 L 09/25/18 20:00 Blood Blood Culture - Final Klebsiella Pneumoniae 09/25/18 23:03 Clean Catch Midstream Urine Culture - Final Klebsiella Pneumoniae Impressions: Venous Doppler Study 09/25/18 00:00 IMPRESSION: No DVT is identified in the left lower extremity. Chest X-Ray 09/25/18 18:53 IMPRESSION: No evidence of acute cardiopulmonary disease. Assessment and Plan - Diagnosis (1) Anemia Is this a current diagnosis for this admission?: Yes Plan: Follow-up anemia labs 09/26/2018-patient hemoglobin is 8.8 most likely secondary to anemia of chronic disease due to chronic CKD. Plan is to follow the anemia work-up. 09/27/2018-patient's latest hemoglobin is 8.5 stable. He has a history of anemia of chronic disease. 09/28/2018 hemoglobin is 8.5 hematocrit 24.8 able. 09/29/2018 H&H is stable (2) Left leg cellulitis Is this a current diagnosis for this admission?: Yes Plan: 09/28/2018 patient was on vancomycin and Zosyn this is been switched to IV Levaquin in secondary to Klebsiella gram-negative rods 09/29/2018 Klebsiella is sensitive to Levaquin (3) Acute kidney injury Is this a current diagnosis for this admission?: Yes Plan: 09/28/2018 BUN of 20 creatinine 1.0 09/29/2018 no functions are stable (4) Cellulitis Qualifiers: Site of cellulitis: extremity Site of cellulitis of extremity: lower extremity Laterality: unspecified laterality Qualified Code(s): L03.119 - Cellulitis of unspecified part of limb Is this a current diagnosis for this admission?: Yes Plan: 09/28/2018 patient was on Vanco and Zosyn has been switched to IV Levaquin due to Klebsiella in his urine and blood 09/29/2018 white count is stable at 6.0 (5) Coronary artery disease Qualifiers: Coronary Disease-Associated Artery/Lesion type: [place] artery Associated angina: without angina Is this a current diagnosis for this admission?: Yes Plan: 09/26/2018-patient has a history of coronary artery disease no complaints of chest pain this hospital stay. 09/27/2018-no complaints of chest pains today. 09/28/2018 patient is status post NC in coronary artery disease. No complaints of chest pain. 09/29/2018 no signs of coronary disease, clinically (6) Diabetes Qualifiers: Diabetes mellitus type: type 2 Diabetes mellitus terminologist insulin use: with fpc use Diabetes mellitus complication status: with skin complications Diabetes mellitus complication detail: with other skin complication Qualified Code(s): E11.628 - Type 2 diabetes mellitus with other skin complications; Z79.4 - group home (current) use of insulin; Z79.4 - marine oil terminal superintendent (current) use of insulin; Z79.4 - marine oil terminal superintendent (current) use of insulin; Z79.4 - group home (current) use of insulin Is this a current diagnosis for this admission?: Yes Plan: 09/28/2018 [place] level today was 265 and is well controlled 09/29/2018 blood sugars are stable this morning it was 229 she is getting 20 units of Lantus nightly and a sliding scale as needed (7) Encephalopathy Is this a current diagnosis for this admission?: Yes Plan: 09/28/2018 lactic acid levels and ammonia levels are pending. Psychiatric consult has been made for agitation. Patient was placed on Haldol every 4 hours as needed 09/29/2018 lactic acid levels and ammonia levels are normal. Patient is not agitated but still confused. Psych consult pending (8) History of CVA (cerebrovascular accident) Is this a current diagnosis for this admission?: Yes Plan: 09/28/2018 patient has no focal deficits globally he is agitated and confused 09/29/2018 no focal localizing deficits (9) Morbid obesity with BMI of 40.0-44.9, adult Is this a current diagnosis for this admission?: Yes Plan: Morbid obesity will evaluate for metabolic cause with evaluation of thyroid function and dietitian consultation 09/29/2018 she came in at 122 kg and now is at 113 kg (10) GIANNI (obstructive sleep apnea) Is this a current diagnosis for this admission?: Yes Plan: Refuses BiPAP 09/26/2018-patient has history of obstructive sleep apnea he is refusing to wear the BiPAP. Pulse ox is a 95% on room air. 09/27/2018-patient BMI is more than 42 and has history of obstructive sleep apnea but he is refusing to wear the BiPAP during this hospital stay. Exercise weight loss lifestyle modifications are discussed with the patient. 09/28/2018 patient is still refusing to wear his BiPAP oxygen saturation is 93% on 4 L 8 9 we will try to wean patient down on his nasal cannula oxygen to 3 or 2 L, to maintain his sats above 93% (11) SIRS (systemic inflammatory response syndrome) Is this a current diagnosis for this admission?: Yes Plan: Patient is currently on antibiotics IV his cellulitis as well as his sepsis 09/29/2018 continue IV Levaquin - Time Time Spent with patient: 25-34 minutes
[2018-09-29] MEDS: LEVETIRACETAM 500 MG/NACL-ISO 500 MG/100 ML RTUPB IV SCH ×2 (10:53→21:53)
[2018-09-29] MEDS: LEVOFLOXACIN 500 MG/D5W RTU 500 MG/100 ML RTUPB IV SCH (11:36)
[2018-09-29] MEDS: INSULIN GLARGINE,HUM.REC.ANLOG 1,000 UNIT/10 ML VIAL SUBCUT SCH (21:54)
[2018-09-29] MEDS: ATORVASTATIN CALCIUM 40 MG TABLET PO SCH (21:54)
[2018-09-30] MEDS: ACETAMINOPHEN 325 MG TABLET PO PRN ×2 (04:49→11:31)
[2018-09-30] MEDS: HEPARIN SOD (PORCINE) 5,000 UNIT/ML 1 ML VIAL SUBCUT SCH ×3 (06:50→21:53)
[2018-09-30] MEDS: GABAPENTIN 300 MG CAPSULE PO SCH ×3 (06:50→21:53)
[2018-09-30] MEDS: INSULIN LISPRO 100 UNIT/ML 3 ML VIAL SUBCUT SCH ×3 (08:36→17:59)
[2018-09-30] MEDS: FUROSEMIDE 20 MG TABLET PO SCH (08:37)
[2018-09-30] MEDS: CLOPIDOGREL BISULFATE 75 MG TABLET PO SCH (09:07)
[2018-09-30] MEDS: COLCHICINE 0.6 MG TABLET PO SCH (09:07)
[2018-09-30] MEDS: LEVOFLOXACIN 500 MG/D5W RTU 500 MG/100 ML RTUPB IV SCH (09:07)
[2018-09-30] MEDS: LISINOPRIL 10 MG TABLET PO SCH (09:07)
[2018-09-30] MEDS: CARBAMAZEPINE 200 MG TABLET PO SCH ×2 (09:07→21:52)
[2018-09-30] MEDS: METOPROLOL SUCCINATE 50 MG TAB.SR.24H PO SCH (09:07)
[2018-09-30] MEDS: ASPIRIN 81 MG TABLET, ENT COATED PO SCH (09:07)
--- NOTE | 2018-09-30 11:32 | RADIOLOGY REPORT (SQ) ---
EXAM DESCRIPTION: CT HEAD WITHOUT COMPLETED DATE/TIME: 09/30/2018 10:57 am REASON FOR STUDY: syncope COMPARISON: 09/08/2018 TECHNIQUE: Axial images acquired through the brain without intravenous contrast. Images reviewed wit h bone, brain and subdural windows. Images stored on PACS. All CT scanners at this facility use dose modulation, iterative reconstruction, and/or weight based d osing when appropriate to reduce radiation dose to as low as reasonably achievable (ALARA). [facility]: Dose Right [facility]: CareDose [facility]: Dose Right [facility]: Teradose 4D [facility]: Smart Technologies RADIATION DOSE: CT Rad equipment meets quality standard of care and radiation dose reduction techniq ues were employed. CTDIvol: 53.2 mGy. DLP: 1203 mGy-cm.. LIMITATIONS: None. FINDINGS: VENTRICLES: Normal size and contour. CEREBRUM: No masses. No hemorrhage. No midline shift. Similar appearance of the white matter and lef t occipital encephalomalacia. No evidence for acute infarction. CEREBELLUM: No masses. No hemorrhage. No alteration of density. No evidence for acute infarction. EXTRA-AXIAL SPACES: No fluid collections. ORBITS AND GLOBE: No intra- or extraconal masses. Normal contour of globe without masses. CALVARIUM: No fracture. PARANASAL SINUSES: No fluid or mucosal thickening. SOFT TISSUES: No mass or hematoma. OTHER: No other significant finding. IMPRESSION: NO ACUTE INTRACRANIAL FINDINGS. EVIDENCE OF ACUTE STROKE: NO. TECHNICAL DOCUMENTATION: JOB ID: [id number] [place]-72 Quality ID # [id number]: Final reports with documentation of one or more dose reduction techniques (e.g., Au tomated exposure control, adjustment of the mA and/or kV according to patient size, use of iterative reconstruction technique) 2010 [employer]- All Rights Reserved Reading location - IP/workstation name: [employer]
[2018-09-30] MEDS: LEVETIRACETAM 500 MG/NACL-ISO 500 MG/100 ML RTUPB IV SCH ×2 (11:33→21:53)
[2018-09-30] MEDS: LORAZEPAM INJ 2 MG/1 ML VIAL IV PRN (21:53)
[2018-09-30] MEDS: ATORVASTATIN CALCIUM 40 MG TABLET PO SCH (21:53)
[2018-09-30] MEDS ORDERED: INSULIN GLARGINE,HUM.REC.ANLOG 1,000 UNIT/10 ML VIAL SUBCUT SCH (22:00)
[2018-10-01] MEDS: HEPARIN SOD (PORCINE) 5,000 UNIT/ML 1 ML VIAL SUBCUT SCH ×3 (05:01→21:25)
[2018-10-01] MEDS: LORAZEPAM INJ 2 MG/1 ML VIAL IV PRN (05:02)
[2018-10-01] MEDS: GABAPENTIN 300 MG CAPSULE PO SCH ×3 (05:02→21:29)
[2018-10-01] MEDS: INSULIN LISPRO 100 UNIT/ML 3 ML VIAL SUBCUT SCH ×3 (08:32→17:19)
[2018-10-01] MEDS: FUROSEMIDE 20 MG TABLET PO SCH (09:58)
[2018-10-01] MEDS: CLOPIDOGREL BISULFATE 75 MG TABLET PO SCH (10:00)
[2018-10-01] MEDS: ASPIRIN 81 MG TABLET, ENT COATED PO SCH (10:00)
[2018-10-01] MEDS: COLCHICINE 0.6 MG TABLET PO SCH (10:00)
[2018-10-01] MEDS: LISINOPRIL 10 MG TABLET PO SCH (10:01)
[2018-10-01] MEDS: METOPROLOL SUCCINATE 50 MG TAB.SR.24H PO SCH (10:01)
[2018-10-01] MEDS: CARBAMAZEPINE 200 MG TABLET PO SCH (10:01)
[2018-10-01] MEDS: LEVOFLOXACIN 500 MG/D5W RTU 500 MG/100 ML RTUPB IV SCH (10:02)
--- NOTE | 2018-10-01 10:04 | PDOC PROGRESS REPORT ---
Subjective Progress Note for:: 10/01/18 Subjective:: 09/28/2018 patient is being seen today for sepsis with Klebsiella in the urine as well as the blood patient also has a cellulitis of the left lower extremity. Doppler showed no DVT. Patient was recently treated for C. difficile in the hospital. 09/29/2018 patient appears much more lucid today although he still is oriented to person and place as well as time, at least is not agitated and combative. Blood pressure 167/68 temp 98.8 pulse 93 respirations 20 O2 sat 100% on 5 L, I will try to wean him down today. Patient's white count remains normal H&H is stable electrolytes are normal glucose is around 200, lactic acid is normal 1.4 ammonia is normal at 8.7 Both urine and blood grew out Klebsiella which is sensitive to levofloxacin which he is on 09/30/2018 patient is much more alert today oriented to person place and time. CT scan of the head was normal showing no acute intracranial disease. Patient was seen by psych yesterday. Blood pressure stable 150/70 temp 98 5 oxygen saturations 97% on room air, heart rate 86. CBC shows a WBC 6000 H&H 9.3 27.8 platelets 196,000. Electrolytes sodium 141 potassium 4.5 BUN of 13 creatinine 0.95. Glucose levels are running about 230. 10/01/2018 patient is being seen for sepsis, cellulitis of the left lower leg, and altered mental status. Cellulitis is improving dramatically, patient was confused again last night and had to receive Haldol and Ativan. I feel like this may be on the basis of his previous CVA, encephalopathy but certainly CT head scan and labs did not show any etiology Reason For Visit: CELLULITIS/DM Physical Exam Vital Signs: Temp Pulse Resp BP Pulse Ox 98.9 F 84 18 144/62 H 98 10/01/18 08:38 10/01/18 08:38 10/01/18 08:38 10/01/18 08:38 10/01/18 08:38 Intake & Output 09/30/18 10/01/18 10/02/18 06:59 06:59 06:59 Intake Total 930 500 Output Total 1175 1220 Balance -245 -720 Weight 116 kg General appearance: PRESENT: no acute distress, well-developed, well-nourished Head exam: PRESENT: atraumatic, normocephalic Respiratory exam: PRESENT: clear to auscultation michaela, other - She is sleeping reading comfortably on nasal cannula oxygen 3 L sat 98%. ABSENT: rales, r [place], wheezes Cardiovascular exam: PRESENT: RRR. ABSENT: diastolic murmur, rubs, systolic murmur Psychiatric exam: PRESENT: appropriate affect, normal mood, other - Sleeping following Haldol and Ativan. ABSENT: homicidal ideation, suicidal ideation Results Laboratory Results: 09/28/18 15:05 09/28/18 15:05 09/25/18 19:30 Blood Blood Culture - Final NO GROWTH IN 5 DAYS 09/25/18 19:02 Blood Blood Culture - Final NO GROWTH IN 5 DAYS Impressions: Venous Doppler Study 09/25/18 00:00 IMPRESSION: No DVT is identified in the left lower extremity. Chest X-Ray 09/25/18 18:53 IMPRESSION: No evidence of acute cardiopulmonary disease. Head CT 09/30/18 08:04 IMPRESSION: NO ACUTE INTRACRANIAL FINDINGS. EVIDENCE OF ACUTE STROKE: NO. Assessment and Plan - Diagnosis (1) Anemia Is this a current diagnosis for this admission?: Yes Plan: Follow-up anemia labs 09/26/2018-patient hemoglobin is 8.8 most likely secondary to anemia of chronic disease due to chronic CKD. Plan is to follow the anemia work-up. 09/27/2018-patient's latest hemoglobin is 8.5 stable. He has a history of anemia of chronic disease. 09/28/2018 hemoglobin is 8.5 hematocrit 24.8 able. 09/29/2018 H&H is stable 09/30/2018 H&H is actually up to 9.3 27.8 10/01/2018 H&H remained stable from chronic disease (2) Left leg cellulitis Is this a current diagnosis for this admission?: Yes Plan: 09/28/2018 patient was on vancomycin and Zosyn this is been switched to IV Levaquin in secondary to Klebsiella gram-negative rods 09/29/2018 Klebsiella is sensitive to Levaquin 09/30/2018 cellulitis is actually improving less redness less edema 10/01/2018 Mitzi improvement from admission of cellulitis left lower leg just above the ankle, only minimal redness, very little soft tissue swelling, day 4 of IV antibiotics. (3) Acute kidney injury Is this a current diagnosis for this admission?: Yes Plan: 09/28/2018 BUN of 20 creatinine 1.0 09/29/2018 no functions are stable BUN and creatinine will be rechecked tomorrow, patient is receiving no IV fluids Will recheck labs today 10/01/2018 (4) Cellulitis Qualifiers: Site of cellulitis: extremity Site of cellulitis of extremity: lower extremity Laterality: unspecified laterality Qualified Code(s): L03.119 - Cellulitis of unspecified part of limb Is this a current diagnosis for this admission?: Yes Plan: 09/28/2018 patient was on Vanco and Zosyn has been switched to IV Levaquin due to Klebsiella in his urine and blood 09/29/2018 white count is stable at 6.0 09/30/2018 patient cellulitis is improving on antibiotics IV this is day 3 of antibiotics 10/01/2017 good improvement of cellulitis left lower extremity day 4 of antibiotics (5) Coronary artery disease Qualifiers: Coronary Disease-Associated Artery/Lesion type: [place] artery Associated angina: without angina Is this a current diagnosis for this admission?: Yes Plan: 09/26/2018-patient has a history of coronary artery disease no complaints of chest pain this hospital stay. 09/27/2018-no complaints of chest pains today. 09/28/2018 patient is status post MD in coronary artery disease. No complaints of chest pain. 09/29/2018 no signs of coronary disease, clinically 09/30/2018 no complaint of chest pain 10/01/2018 patient remained stable from cardiac standpoint (6) Diabetes Qualifiers: Diabetes mellitus type: type 2 Diabetes mellitus emt intermediate insulin use: with emt intermediate use Diabetes mellitus complication status: with skin comp lications Diabetes mellitus complication detail: with other skin complication Qualified Code(s): E11.628 - Type 2 diabetes mellitus with other skin complications; Z79.4 - [facility] (current) use of insulin; Z79.4 - [facility] (current) use of insulin; Z79.4 - termite control servicer (current) use of insulin; Z79.4 - [facility] (current) use of insulin Is this a current diagnosis for this admission?: Yes Plan: 09/28/2018 [place] level today was 265 and is well controlled 09/29/2018 blood sugars are stable this morning it was 229 he is getting 20 units of Lantus nightly and a sliding scale as needed 09/30/2018 will increase Lantus to 25 units nightly, continue sliding scale, sugars are running in the mid 200s 10/01/2017 glucose levels are running in the low 200s we will increase the Lantus to 30 units nightly (7) Encephalopathy Is this a current diagnosis for this admission?: Yes Plan: 09/28/2018 lactic acid levels and ammonia levels are pending. Psychiatric consult has been made for agitation. Patient was placed on Haldol every 4 hours as needed 09/29/2018 lactic acid levels and ammonia levels are normal. Patient is not agit ated but still confused. Psych consult pending 09/30/[address] brain scan which was done today that showed no allergy for his confusion 10/01/2018 confusion and agitation on the basis of hospitalization, sepsis, previous CVA (8) History of CVA (cerebrovascular accident) Is this a current diagnosis for this admission?: Yes Plan: 09/28/2018 patient has no focal deficits globally he is agitated and confused 09/29/2018 no focal localizing deficits 09-30-18 Patient is nerological improving with mental status 10/01/2018 CT scan shows no new findings (9) Morbid obesity with BMI of 40.0-44.9, adult Is this a current diagnosis for this admission?: Yes Plan: Morbid obesity will evaluate for metabolic cause with evaluation of thyroid function and dietitian consultation 09/29/2018 he came in at 122 kg and now is at 113 kg 09-30-18 Weight today is 116 kg (10) GIANNI (obstructive sleep apnea) Is this a current diagnosis for this admission?: Yes (11) SIRS (systemic inflammatory response syndrome) Is this a current diagnosis for this admission?: Yes - Time Time Spent with patient: 25-34 minutes
[2018-10-01 11:00] LABS: ABSOLUTE EOSINOPHILS # (AUTO) 0.2 10^3/uL (0.0-0.6); ABSOLUTE LYMPHOCYTES (AUTO) 1.3 10^3/uL (0.5-4.7); ABSOLUTE MONOCYTES (AUTO) 0.6 10^3/uL (0.1-1.4); ABSOLUTE NEUT (AUTO) 7.2 10^3/uL (1.7-8.2); BASOPHILS % (AUTO) 0.1 % (0-2); EOSINOPHILS % (AUTO) 1.8 % (0-6); HEMATOCRIT 27.3 % (37.9-51.0); HEMOGLOBIN 9.3 g/dL (13.5-17.0); LYMPHOCYTES % (AUTO) 14.1 % (13-45); MEAN CORPUSCULAR HEMOGLOBIN 30.3 pg (27.0-33.4); MEAN CORPUSCULAR HGB CONC 34.1 g/dL (32.0-36.0); MEAN CORPUSCULAR VOLUME 89 fl (80-97); MONOCYTES % (AUTO) 6.5 % (3-13); PLATELET COUNT 264 10^3/uL (150-450); RED BLOOD COUNT 3.08 10^6/uL (4.35-5.55); RED CELL DISTRIBUTION WIDTH 13.4 % (11.5-14.0); SEGMENTED NEUTROPHILS % (AUTO) 77.5 % (42-78); TOTAL CELLS COUNTED % (AUTO) 100 %; WHITE BLOOD COUNT 9.3 10^3/uL (4.0-10.5)
[2018-10-01 11:19] LABS: ANION GAP 9 (5-19); BLOOD UREA NITROGEN 17 mg/dL (7-20); CARBON DIOXIDE 27 mmol/L (22-30); CHLORIDE 104 mmol/L (98-107); GLUCOSE 216 mg/dL (75-110); POTASSIUM 4.1 mmol/L (3.6-5.0)
[2018-10-01] MEDS: LEVETIRACETAM 500 MG/NACL-ISO 500 MG/100 ML RTUPB IV SCH ×2 (11:22→21:29)
--- NOTE | 2018-10-01 13:49 | PSYCHOLOGICAL NOTE ---
Psych Note - Psych Note Date seen by psych provider: 10/01/18 Time seen by psych provider: 11:15 - Just documenting medication recommendations Psych Note: Presenting Problem: Resident of [place]. Agitation and confusion. [facility] Clinician, Moemirian Quintero saw patient and spoke with . The following is to provide medication recommendation after requested Head CT results were reviewed. Medication recommendations made by the psychiatric medical provider, Dr. Xiang MD., includes: Discontinue: Haldol, Ativan, Tegretol Add Clonidine 0.1MG Patch every 24 hours for calming effect Request Brain MRI: The MRI from 2012 demonstrated punctuate foci of increased white matter signal present in the bifrontal white matter demonstrating likely minimal gliosis along the perivascular spaces. He has an old lacunar infarct in his basal ganglia on the left. Vascular enlargement of the posterior horn on the left of the lateral ventricle. Encephalomalacia in the left occipital lobe. Diagnosis: AMS/Confusion Multiple significant medical issues current Hx CVA/Stroke R/O 799.59 (R41.9) Unspecified Neurocognitive Disorder Impression/Plan: After review of Head CT results the above are medication recommendations. Once the Haldol, Ativan and Tegretol are stopped he should begin to return to baseline. Given the recent Head CT and former 2012 MRI there are neurodegenerative process going on and medications such as antipsychotic/benzodiazepines/and others can cause and/or exacerbate agitation, aggression, confusion, paranoia and psychosis. it is important for treating physicians to be mindful of this. Consulted Dr. Mares regarding the management and care of patient. Attending Hospitalist made aware of recommendations.
--- NOTE | 2018-10-01 14:27 | Progress Note ---
Provider Note Provider Note: 10/01/2018 psych recommendation DC the Haldol, Ativan, and will wean him off his Tegretol over the next for 5 days. He was on Tegretol prior to being admitted. He will remain on the Keppra. I have added Catapres 0.1 mg patch so at psychiatry's recommendation at this time patient cannot undergo an MRI scan of the brain due to his inability to remain still during the study. For his left shoulder pain and left elbow pain try Toradol 15 mg IV every 6 hours
[2018-10-01] MEDS: KETOROLAC TROMETHAMINE INJ/PF 30 MG/1 ML SDV IV PRN (15:16)
[2018-10-01] MEDS ORDERED: CLONIDINE 0.1 MG/24 HR PATCH.TDWK TD SCH (17:00)
[2018-10-01] MEDS: ATORVASTATIN CALCIUM 40 MG TABLET PO SCH (21:29)
[2018-10-01] MEDS ORDERED: CARBAMAZEPINE 100 MG TAB.CHEW PO SCH (22:00)
[2018-10-01] MEDS: INSULIN GLARGINE,HUM.REC.ANLOG 1,000 UNIT/10 ML VIAL SUBCUT SCH (22:26)
[2018-10-02] MEDS: HEPARIN SOD (PORCINE) 5,000 UNIT/ML 1 ML VIAL SUBCUT SCH ×3 (05:08→21:43)
[2018-10-02] MEDS: GABAPENTIN 300 MG CAPSULE PO SCH ×3 (05:47→21:44)
[2018-10-02] MEDS: INSULIN LISPRO 100 UNIT/ML 3 ML VIAL SUBCUT SCH ×3 (08:37→17:14)
[2018-10-02] MEDS: FUROSEMIDE 20 MG TABLET PO SCH (08:37)
[2018-10-02] MEDS: METOPROLOL SUCCINATE 50 MG TAB.SR.24H PO SCH (09:33)
[2018-10-02] MEDS: ASPIRIN 81 MG TABLET, ENT COATED PO SCH (09:33)
[2018-10-02] MEDS: COLCHICINE 0.6 MG TABLET PO SCH (09:33)
[2018-10-02] MEDS: CLOPIDOGREL BISULFATE 75 MG TABLET PO SCH (09:33)
[2018-10-02] MEDS: LISINOPRIL 10 MG TABLET PO SCH (09:34)
[2018-10-02] MEDS: OXYCODONE-ACETAMINOPHEN 5-325 MG TABLET PO PRN ×2 (09:34→14:28)
[2018-10-02] MEDS: MAGNESIUM SULFATE/D5W 1 GM/100 ML RTUPB IV SCH ×2 (09:35→13:06)
[2018-10-02] MEDS: LEVOFLOXACIN 500 MG/D5W RTU 500 MG/100 ML RTUPB IV SCH (09:36)
[2018-10-02] MEDS: LEVETIRACETAM 500 MG/NACL-ISO 500 MG/100 ML RTUPB IV SCH ×2 (09:36→21:44)
--- NOTE | 2018-10-02 10:10 | PDOC PROGRESS REPORT ---
Subjective Progress Note for:: 10/02/18 Subjective:: 09/28/2018 patient is being seen today for sepsis with Klebsiella in the urine as well as the blood patient also has a cellulitis of the left lower extremity. Doppler showed no DVT. Patient was recently treated for C. difficile in the hospital. 09/29/2018 patient appears much more lucid today although he still is oriented to person and place as well as time, at least is not agitated and combative. Blood pressure 167/68 temp 98.8 pulse 93 respirations 20 O2 sat 100% on 5 L, I will try to wean him down today. Patient's white count remains normal H&H is stable electrolytes are normal glucose is around 200, lactic acid is normal 1.4 ammonia is normal at 8.7 Both urine and blood grew out Klebsiella which is sensitive to levofloxacin which he is on 09/30/2018 patient is much more alert today oriented to person place and time. CT scan of the head was normal showing no acute intracranial disease. Patient was seen by psych yesterday. Blood pressure stable 150/70 temp 98 5 oxygen saturations 97% on room air, heart rate 86. CBC shows a WBC 6000 H&H 9.3 27.8 platelets 196,000. Electrolytes sodium 141 potassium 4.5 BUN of 13 creatinine 0.95. Glucose levels are running about 230. 10/01/2018 patient is being seen for sepsis, cellulitis of the left lower leg, and altered mental status. Cellulitis is improving dramatically, patient was confused again last night and had to receive Haldol and Ativan. I feel like this may be on the basis of his previous CVA, encephalopathy but certainly CT head scan and labs did not show any etiology 10/02/2018 patient was admitted hospital on 09/25/2018 for sepsis of the left lower leg. Patient was just recently in the hospital for C. difficile colitis.. Patient presents with repeat fever, hypotension redness and swelling to the left lower leg. Patient was started on vancomycin and Zosyn. During patient's hos pitalization he has become feet confused and agitated. Patient placed in four- point restraints since then has complained of left shoulder pain and left elbow pain possibly as result of the restraints and being combative. Now the patient is more alert he says that he has had episodes in the past of confusion and agitation. Patient was seen in consultation by psych who recommended stopping Haldol, Ativan, Tegretol. Patient remains on Keppra. Today patient is awake alert and oriented x4.. X-rays of the left shoulder and left elbow are pending, patient was given Percocet as needed for his pain. Patient is on day 5 of IV Levaquin discharge plan will be reconsulted today. When patient was admitted did have Klebsiella in his urine and blood Reason For Visit: CELLULITIS/DM Physical Exam Vital Signs: Temp Pulse Resp BP Pulse Ox 100.0 F 97 21 H 167/74 H 100 10/02/18 03:51 10/02/18 07:00 10/02/18 03:51 10/02/18 03:51 10/02/18 03:51 Intake & Output 10/01/18 10/02/18 10/03/18 06:59 06:59 06:59 Intake Total 500 1216 0 Output Total 1220 400 Balance -720 816 0 Weight 115.5 kg Results Laboratory Results: 10/01/18 10:40 10/01/18 10:40 10/01/18 10/01/18 10/01/18 10:40 10:40 10:40 WBC 9.3 RBC 3.08 L Hgb 9.3 L Hct 27.3 L MCV 89 MCH 30.3 MCHC 34.1 RDW 13.4 Plt Count 264 Seg Neutrophils % 77.5 Lymphocytes % 14.1 Monocytes % 6.5 Eosinophils % 1.8 Basophils % 0.1 Absolute Neutrophils 7.2 Absolute Lymphocytes 1.3 Absolute Monocytes 0.6 Absolute Eosinophils 0.2 Absolute Basophils 0.0 Sodium 139.5 Potassium 4.1 Chloride 104 Carbon Dioxide 27 Anion Gap 9 BUN 17 Creatinine 0.97 Est GFR ( Amer) > 60 Est GFR (Non-Af Amer) > 60 Glucose 216 H Lactic Acid 0.6 L Uric Acid Calcium 9.0 Magnesium 1.3 L 10/02/18 09:08 WBC RBC Hgb Hct MCV MCH MCHC RDW Plt Count Seg Neutrophils % Lymphocytes % Monocytes % Eosinophils % Basophils % Absolute Neutrophils Absolute Lymphocytes Absolute Monocytes Absolute Eosinophils Absolute Basophils Sodium Potassium Chloride Carbon Dioxide Anion Gap BUN Creatinine Est GFR ( Amer) Est GFR (Non-Af Amer) Glucose Lactic Acid Uric Acid 8.0 Calcium Magnesium Impressions: Venous Doppler Study 09/25/18 00:00 IMPRESSION: No DVT is identified in the left lower extremity. Chest X-Ray 09/25/18 18:53 IMPRESSION: No evidence of acute cardiopulmonary disease. Head CT 09/30/18 08:04 IMPRESSION: NO ACUTE INTRACRANIAL FINDINGS. EVIDENCE OF ACUTE STROKE: NO. Assessment and Plan - Diagnosis (1) Anemia Is this a current diagnosis for this admission?: Yes Plan: Follow-up anemia labs 09/26/2018-patient hemoglobin is 8.8 most likely secondary to anemia of chronic disease due to chronic CKD. Plan is to follow the anemia work-up. 09/27/2018-patient's latest hemoglobin is 8.5 stable. He has a history of anemia of chronic disease. 09/28/2018 hemoglobin is 8.5 hematocrit 24.8 able. 09/29/2018 H&H is stable 09/30/2018 H&H is actually up to 9.3 27.8 10/01/2018 H&H remained stable from chronic disease 10/02/2018 H&H is stable no changes (2) Left leg cellulitis Is this a current diagnosis for this admission?: Yes Plan: 09/28/2018 patient was on vancomycin and Zosyn this is been switched to IV Levaquin in secondary to Klebsiella gram-negative rods 09/29/2018 Klebsiella is sensitive to Levaquin 09/30/2018 cellulitis is actually improving less redness less edema 10/01/2018 improvement from admission of cellulitis left lower leg just above the ankle, only minimal redness, very little soft tissue swelling, day 4 of IV antibiotics. 10/02/2018. Cellulitis continues to improve minimal redness, no soft tissue swelling. Will continue IV Levaquin [facility] (3) Acute kidney injury Is this a current diagnosis for this admission?: Yes Plan: 09/28/2018 BUN of 20 creatinine 1.0 09/29/2018 no functions are stable BUN and creatinine will be rechecked tomorrow, patient is receiving no IV fluids Will recheck labs today 10/01/2018 10/02/2018 BUN of 17 creatinine 0.96 (4) Cellulitis Qualifiers: Site of cellulitis: extremity Site of cellulitis of extremity: lower extremity Laterality: unspecified laterality Qualified Code(s): L03.119 - Cellulitis of unspecified part of limb Is this a current diagnosis for this admission?: Yes Plan: 09/28/2018 patient was on Vanco and Zosyn has been switched to IV Levaquin due to Klebsiella in his urine and blood 09/29/2018 white count is stable at 6.0 09/30/2018 patient cellulitis is improving on antibiotics IV this is day 3 of antibiotics 10/01/2018 good improvement of cellulitis left lower extremity day 4 of antibiotics 10/02/2018 dialyze continues to improve can switch over to p.o. Levaquin [facility]. Klebsiella was cultured from his urine and blood (5) Coronary artery disease Qualifiers: Coronary Disease-Associated Artery/Lesion type: [place] artery Associated angina: without angina Is this a current diagnosis for this admission?: Yes Plan: 09/26/2018-patient has a history of coronary artery disease no complaints of chest pain this hospital stay. 09/27/2018-no complaints of chest pains today. 09/28/2018 patient is status post DC in coronary artery disease. No complaints of chest pain. 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; Z79.4 - group home (current) use of insulin; Z79.4 - group home (current) use of insulin; Z79.4 - intermodal truck driver (current) use of insulin; Z79.4 - group home (current) use of insulin Is this a current diagnosis for this admission?: Yes Plan: 09/28/2018 [place] level today was 265 and is well controlled 09/29/2018 blood sugars are stable this morning it was 229 he is getting 20 units of Lantus nightly and a sliding scale as needed 09/30/2018 will increase Lantus to 25 units nightly, continue sliding scale, sugars are running in the mid 200s 10/01/2018glucose levels are running in the low 200s we will increase the Lantus to 30 units nightly 10/02/2018 since Lantus was increased last night blood sugars remain in the low to mid 200s. Check an A1c today (7) Encephalopathy Is this a current diagnosis for this admission?: Yes Plan: 09/28/2018 lactic acid levels and ammonia levels are pending. Psychiatric consult has been made for agitation. Patient was placed on Haldol every 4 hours as needed 09/29/2018 lactic acid levels and ammonia levels are normal. Patient is not agitated but still confused. Psych consult pending 09/30/[address] brain scan which was done today that showed no allergy for his confusion 10/01/2018 confusion and agitation on the basis of hospitalization, sepsis, previous CVA 10/02/2018 patient is not confused this morning he is awake alert, he does keep his eyes closed when he talks to you however no sign of agitation or dementia (8) History of CVA (cerebrovascular accident) Is this a current diagnosis for this admission?: Yes Plan: 09/28/2018 patient has no focal deficits globally he is agitated and confused 09/29/2018 no focal localizing deficits 09-30-18 Patient is nerological improving with mental status 10/01/2018 CT scan shows no new findings 10/02/2018 an MRI scan would be a better study but patient would probably not tolerate 45 minutes in the scanner CT scan head scan shows nothing acute. Patient probably has microvascular disease (9) Morbid obesity with BMI of 40.0-44.9, adult Is this a current diagnosis for this admission?: Yes (10) GIANNI (obstructive sleep apnea) Is this a current diagnosis for this admission?: Yes (11) SIRS (systemic inflammatory response syndrome) Is this a current diagnosis for this admission?: Yes - Time Time Spent with patient: 25-34 minutes
[2018-10-02] MEDS: ATORVASTATIN CALCIUM 40 MG TABLET PO SCH (21:44)
[2018-10-02] MEDS: INSULIN GLARGINE,HUM.REC.ANLOG 1,000 UNIT/10 ML VIAL SUBCUT SCH (21:44)
[2018-10-03] MEDS: HEPARIN SOD (PORCINE) 5,000 UNIT/ML 1 ML VIAL SUBCUT SCH ×3 (05:30→21:08)
[2018-10-03] MEDS: GABAPENTIN 300 MG CAPSULE PO SCH ×3 (05:30→21:07)
[2018-10-03] MEDS: INSULIN LISPRO 100 UNIT/ML 3 ML VIAL SUBCUT SCH ×3 (07:43→17:37)
[2018-10-03] MEDS: FUROSEMIDE 20 MG TABLET PO SCH (07:44)
--- NOTE | 2018-10-03 08:30 | RADIOLOGY REPORT (SQ) ---
EXAM DESCRIPTION: ELBOW LEFT AP/LATERAL COMPLETED DATE/TIME: 10/02/2018 7:25 pm REASON FOR STUDY: elbow pain, patient was in restraints COMPARISON: None. NUMBER OF VIEWS: Three views. TECHNIQUE: AP, lateral, and single oblique radiographic images acquired of the left elbow. LIMITATIONS: Limited secondary to patient positioning. IV catheter material overlies antecubital fo ssa FINDINGS: MINERALIZATION: Normal. BONES: There are scattered osteophytes around the elbow. Cortical irregularity along the radial head . No significant displacement or angulation. Additional corticated ossific density along the medial elbow, felt to represent osteophytes. JOINT: No evidence of dislocation. There is a anterior and posterior elbow joint effusion. SOFT TISSUES: Soft tissue swelling about the forearm. No radiopaque foreign body. OTHER: No other significant finding. IMPRESSION: Elbow joint effusion with mild cortical irregularity at the radial head suggestive of no ndisplaced radial head fracture. TECHNICAL DOCUMENTATION: JOB ID: [id number] [employer]- All Rights Reserved Reading location - IP/workstation name: [email or web address]
--- NOTE | 2018-10-03 08:31 | RADIOLOGY REPORT (SQ) ---
EXAM DESCRIPTION: SHOULDER LEFT 2 OR MORE VIEWS COMPLETED DATE/TIME: 10/02/2018 7:25 pm REASON FOR STUDY: left shoulder pain, pt was in restraints COMPARISON: None. NUMBER OF VIEWS: Three views. TECHNIQUE: Internal rotation, external rotation, and Y view images acquired of the left shoulder. LIMITATIONS: None. FINDINGS: MINERALIZATION: Normal. BONES: No acute fracture. No worrisome bone lesions. JOINTS: No dislocation. Acromioclavicular and glenohumeral osteoarthropathy with evidence of prior r otator cuff repair with bone anchors in the proximal humerus. VISUALIZED LUNGS AND RIBS: No pneumothorax. No rib fracture. SOFT TISSUES: No radiopaque foreign body. OTHER: No other significant finding. IMPRESSION: No evidence of acute bony abnormality. Glenohumeral and acromioclavicular osteoarthropathy with evidence of prior rotator cuff repair. TECHNICAL DOCUMENTATION: JOB ID: [id number] [employer]- All Rights Reserved Reading location - IP/workstation name: [email or web address]
[2018-10-03] MEDS: COLCHICINE 0.6 MG TABLET PO SCH (09:20)
[2018-10-03] MEDS: METOPROLOL SUCCINATE 50 MG TAB.SR.24H PO SCH (09:20)
[2018-10-03] MEDS: LISINOPRIL 10 MG TABLET PO SCH (09:20)
[2018-10-03] MEDS: LEVOFLOXACIN 500 MG/D5W RTU 500 MG/100 ML RTUPB IV SCH (09:20)
[2018-10-03] MEDS: LEVETIRACETAM 500 MG/NACL-ISO 500 MG/100 ML RTUPB IV SCH (09:20)
[2018-10-03] MEDS: ASPIRIN 81 MG TABLET, ENT COATED PO SCH (09:20)
[2018-10-03] MEDS: CLOPIDOGREL BISULFATE 75 MG TABLET PO SCH (09:20)
[2018-10-03] MEDS: KETOROLAC TROMETHAMINE INJ/PF 30 MG/1 ML SDV IV PRN ×2 (13:35→21:07)
--- NOTE | 2018-10-03 17:11 | PDOC CONSULTATION ---
Consultation Consult Date: 10/03/18 Provider Consulted: LEIDA LOPEZ History of Present Illness Admission Date/PCP: 09/27/18 10:13 THOMAS PELAEZ MD Patient complains of: Left shoulder and elbow pain History of Present Illness: RUSSELL PARRA is a 67 year old male who was admitted for urosepsis secondary to Klebsiella via. Due to patient's sepsis he was placed in restraints because of agitation after patient's mental status slowly improved he began complaining of pain in his shoulder and elbow. Patient unable to give adequate history of personal secondary to mental status but according to nursing and family it was secondary to shaking while in the restraints which caused him discomfort. According to family he also had previous shoulder surgery approximately 10 years ago but prior to today was not having recent symptoms. Past Medical History Cardiac Medical History: Reports: Coronary Artery Disease, Myocardial Infarction, Hyperlipidema, Hypertension Pulmonary Medical History: Reports: Asthma - IN PAST, Sleep Apnea - cpap did not help Denies: Bronchitis, Chronic Obstructive Pulmonary Disease (COPD), Pneumonia, Tuberculosis Neurological Medical History: Denies: Seizures Endocrine Medical History: Reports: Diabetes Mellitus Type 2 Denies: Diabetes Mellitus Type 1, Hyperthyroidism, Hypothyroidism GI Medical History: Reports: Gastroesophageal Reflux Disease Denies: Cirrhosis, Crohn's Disease, Hepatitis, Hiatal Hernia, Ulcerative Colitis Musculoskeltal Medical History: Reports: Arthritis - GENERALIZED, Gout Denies: Fibromyalgia Skin Medical History: Denies: Eczema, Psoriasis Psychiatric Medical History: Denies: Depression Hematology: Denies: Anemia, Sickle Cell Disease, Bleeding Tendencies Infectious Medical History: Reports: Clostridium Difficile Past Surgical History Past Surgical History: Reports: Appendectomy, Cardiac Catheterization, Cholecys tectomy, Coronary Artery Bypass Graft - 5 vessels, Coronary Stent Denies: Pacemaker Social History Lives with: Residential Smoking Status: Unknown if Ever Smoked Frequency of Alcohol Use: None Hx Recreational Drug Use: No Drugs: None Hx Prescription Drug Abuse: No - Advance Directive Resuscitation Status: Full Code Family History Family History: CAD, DM, Hypertension Parental Family History Reviewed: No Children Family History Reviewed: No Sibling(s) Family History Reviewed.: No Medication/Allergy Home Medications: Clopidogrel Bisulfate [Plavix 75 mg Tablet] 75 mg PO DAILY 08/31/18 Colchicine [Colchicine 0.6 mg Tablet] 0.6 mg PO DAILY 08/31/18 Gabapentin [Neurontin 300 mg Capsule] 300 mg PO Q8 08/31/18 Insulin Aspart [Novolog Flexpen] 30 unit SQ AC 08/31/18 Metoprolol Succinate [Toprol XL 100 mg Tablet] 100 mg PO DAILY 08/31/18 Aspirin [Ecotrin 81 mg EC Tablet] 81 mg PO DAILY #30 tabec 09/06/18 Atorvastatin Calcium [Lipitor 40 mg Tablet] 40 mg PO QHS #30 tablet 09/06/18 Furosemide [Lasix 20 mg Tablet] 20 mg PO QAM #30 tablet 09/06/18 Lisinopril [Prinivil 10 mg Tablet] 20 mg PO DAILY #30 tablet 09/06/18 Potassium Chloride [Klor-Con 10 Meq Capsule ER] 10 meq PO DAILY #5 capsule.er 09/06/18 Carbamazepine [Tegretol 200 Mg Tablet] 200 mg PO BID 09/16/18 Insulin Lispro [Humalog Insulin 100 Unit/1 ml 3 ml Vial] 0 unit SUBCUT .SLD SCALE 09/26/18 Metformin HCl [Glucophage 500 mg Tablet] 500 mg PO QPM 09/26/18 Allergies/Adverse Reactions: No Known Allergies Allergy (Verified 09/15/18 15:33) Review of Systems ROS unobtainable: Due to mental status Constitutional: ABSENT: chills, fever(s), headache(s), weight gain, weight loss Eyes: ABSENT: visual disturbances Ears: ABSENT: hearing changes Cardiovascular: ABSENT: chest pain, dyspnea on exertion, edema, orthropnea, palpitations Respiratory: ABSENT: cough, hemoptysis Gastrointestinal: ABSENT: abdominal pain, constipation, diarrhea, hematemesis, hematochezia, nausea, vomiting Genitourinary: ABSENT: dysuria, hematuria Integumentary: ABSENT: rash, wounds Neurological: ABSENT: abnormal gait, abnormal speech, confusion, dizziness, focal weakness, syncope Psychiatric: ABSENT: anxiety, depression, homidical ideation, suicidal ideation Endocrine: ABSENT: cold intolerance, heat intolerance, menstrual abnormalities, polydipsia, polyuria Hematologic/Lymphatic: ABSENT: easy bleeding, easy bruising, lymphadenopathy Physical Exam Vital Signs: Temp Pulse Resp BP Pulse Ox 98.5 F 77 18 114/53 L 95 10/03/18 15:07 10/03/18 15:07 10/03/18 15:07 10/03/18 15:07 10/03/18 15:07 Intake & Output 10/02/18 10/03/18 10/04/18 06:59 06:59 06:59 Intake Total 1216 1175 275 Output Total 400 550 175 Balance 816 625 100 Weight 115.5 kg 114.6 kg General appearance: PRESENT: no acute distress, cooperative, obese Head exam: PRESENT: atraumatic, normocephalic Eye exam: PRESENT: conjunctiva pale Ear exam: PRESENT: normal external ear exam Mouth exam: PRESENT: moist, tongue midline Neck exam: ABSENT: carotid bruit, JVD, lymphadenopathy, thyromegaly Respiratory exam: PRESENT: unlabored Cardiovascular exam: PRESENT: RRR. ABSENT: diastolic murmur, rubs, systolic murmur Pulses: PRESENT: normal radial pulses Vascular exam: PRESENT: normal capillary refill GI/Abdominal exam: PRESENT: normal bowel sounds, soft. ABSENT: distended, guarding, mass, organolmegaly, rebound, tenderness Rectal exam: PRESENT: deferred Extremities exam: PRESENT: other - Left upper extremity: Mild tenderness along the radiocapitellar joint. No pain with terminal flexion or extension of the elbow. Mild effusion noted. No erythema or increased warmth. Tenderness palpation diffusely throughout the shoulder along the bicipital groove and laterally however somewhat exaggerated given the fact patient has improved tenderness upon palpation with distraction and verbal conversation. Limited examination secondary to patient's pain no evidence of erythema or effusion. No evidence of increased warmth. No atrophy. Neurological exam: PRESENT: alert, awake, oriented to person, CN II-XII grossly intact, other - Patient disoriented to time place and situation only oriented to self. ABSENT: motor sensory deficit Psychiatric exam: PRESENT: appropriate affect, normal mood. ABSENT: homicidal ideation, suicidal ideation Skin exam: PRESENT: dry, intact, warm. ABSENT: cyanosis, rash Results Laboratory Results: 10/01/18 10:40 10/01/18 10:40 Impressions: Venous Doppler Study 09/25/18 00:00 IMPRESSION: No DVT is identified in the left lower extremity. Chest X-Ray 09/25/18 18:53 IMPRESSION: No evidence of acute cardiopulmonary disease. Head CT 09/30/18 08:04 IMPRESSION: NO ACUTE INTRACRANIAL FINDINGS. EVIDENCE OF ACUTE STROKE: NO. Elbow X-Ray 10/02/18 00:00 IMPRESSION: Elbow joint effusion with mild cortical irregularity at the radial head suggestive of nondisplaced radial head fracture. Shoulder X-Ray 10/02/18 00:00 IMPRESSION: No evidence of acute bony abnormality. Glenohumeral and acromioclavicular osteoarthropathy with evidence of prior rotator cuff repair. Status: Image reviewed by me - I have reviewed patient's radiographs which demonstrate cortical irregularity along the radial head possibly consistent with underlying nondisplaced radial head fracture there is also evidence of degenerative changes along the elbow joint. Radiographs of the shoulder demonstrate no evidence of acute abnormality letter postsurgical changes noted. Assessment & Plan - Diagnosis (1) Nondisplaced fracture of head of left radius Qualifiers: Encounter type: initial encounter Fracture type: closed Qualified Code(s): S52.125A - Nondisplaced fracture of head of left radius, initial encounter for closed fracture Is this a current diagnosis for this admission?: Yes Plan: Patient has evidence of nondisplaced radial head fracture no evidence of associated abnormality at this point will place the patient in a sling for comfort along with ice. Have also discussed treatment for the shoulder but at this point given urosepsis do not feel injection is warranted however patient may follow-up as an outpatient for recheck of his shoulder. Currently there is no signs or symptoms to suggest infectious process of the shoulder or elbow. Patient may follow-up as an outpatient.
--- NOTE | 2018-10-03 18:23 | Progress Note Acknowledgement ---
Progress Note Acknowledgement Progess Note Acknowledgement: I, the undersigned member of the medical staff with appropriate privileges and with supervisory authority over Yuridia Pascual, a [facility] practice allied health professional, acknowledge that I have reviewed the progress notes entered on this patient, and in my professional judgment believe that the assessment made and/or any care evidenced was appropriate
--- NOTE | 2018-10-03 18:23 | PDOC PROGRESS REPORT ---
Subjective Progress Note for:: 10/03/18 Subjective:: RUSSELL PARRA is a 67 year old male with a past medical history of coronary artery disease, hypertension, morbid obesity, sleep apnea refusing BiPAP, CKD, and recent C. difficile colitis admitted 09/26/2018 forCellulitis secondary to venous stasis disease and ambulatory dysfunction. The patient was seen on afternoon rounds with his present. He is found res ting in bed comfortably on supplemental oxygen via nasal cannula at 2 L/min. Per the patient's he was not on home oxygen, however, has had a prolonged hospital/SNF stay over the previous 1 1/2 months (originally admitted for an [place] to outside facility, then to SNF, then return to acute care setting secondary to C. difficile colitis, return to SNF, and then returned again to [facility] for current admission); she is uncertain as to his oxygen requirement at SNF prior to this admission. She does report improved mentation, although, he is currently confused to situation and is repetitive with statements and questions. She does state that this is abnormal compared to his baseline mental status. The patient is alert and oriented to self, intermittently to hospital, but clearly confused regarding situation. Patient endorses left shoulder and elbow pain. Otherwise he denies current fever/chills, chest pain, dyspnea, abdominal pain, nausea, and lower extremity discomfort. Patient's reports that their plan is to return home with home health services as he only has 4 days of longterm remaining. We will ask discharge planning to assist. They have no other questions or concerns at this time. No concerns per nursing. Reason For Visit: CELLULITIS/DM Physical Exam Vital Signs: Temp Pulse Resp BP Pulse Ox 98.5 F 77 18 114/53 L 95 10/03/18 15:07 10/03/18 15:07 10/03/18 15:07 10/03/18 15:07 10/03/18 15:07 Intake & Output 10/02/18 10/03/18 10/04/18 06:59 06:59 06:59 Intake Total 1216 1175 275 Output Total 400 550 175 Balance 816 625 100 Weight 115.5 kg 114.6 kg General appearance: PRESENT: no acute distress, cooperative, disheveled, obese, well-developed, well-nourished Head exam: PRESENT: atraumatic, normocephalic Eye exam: PRESENT: conjunctiva pink, EOMI, PERRLA. ABSENT: scleral icterus Mouth exam: PRESENT: moist, tongue midline Neck exam: ABSENT: carotid bruit, JVD, lymphadenopathy, thyromegaly Respiratory exam: PRESENT: clear to auscultation michaela, symmetrical, unlabored, other - Supplemental oxygen via nasal cannula. ABSENT: rales, rhonchi, wheezes Cardiovascular exam: PRESENT: RRR, +S1, +S2. ABSENT: diastolic murmur, rubs, sy stolic murmur Pulses: PRESENT: normal dorsalis pedis pul Vascular exam: PRESENT: normal capillary refill GI/Abdominal exam: PRESENT: normal bowel sounds, soft. ABSENT: distended, guarding, mass, organolmegaly, rebound, tenderness Rectal exam: PRESENT: deferred Gentrourinary exam: PRESENT: indwelling catheter Extremities exam: PRESENT: pedal edema - +2 pitting edema to right foot, tenderness - Left shoulder and elbow. ABSENT: calf tenderness, clubbing, full ROM - Left upper extremity limited range of motion secondary to pain Neurological exam: PRESENT: alert, awake, oriented to person, oriented to place, oriented to situation - Intermittently, CN II-XII grossly intact, other - Calm, conversational, socially appropriate though repetitive of questions and statements and slightly anxious disposition. ABSENT: oriented to time, motor sensory deficit Psychiatric exam: PRESENT: anxious, normal mood. ABSENT: homicidal ideation, suicidal ideation Skin exam: PRESENT: dry, intact, warm. ABSENT: cyanosis, rash Results Laboratory Results: 10/01/18 10:40 10/01/18 10:40 Impressions: Venous Doppler Study 09/25/18 00:00 IMPRESSION: No DVT is identified in the left lower extremity. Chest X-Ray 09/25/18 18:53 IMPRESSION: No evidence of acute cardiopulmonary disease. Head CT 09/30/18 08:04 IMPRESSION: NO ACUTE INTRACRANIAL FINDINGS. EVIDENCE OF ACUTE STROKE: NO. Elbow X-Ray 10/02/18 00:00 IMPRESSION: Elbow joint effusion with mild cortical irregularity at the radial head suggestive of nondisplaced radial head fracture. Shoulder X-Ray 10/02/18 00:00 IMPRESSION: No evidence of acute bony abnormality. Glenohumeral and acromioclavicular osteoarthropathy with evidence of prior rotator cuff repair. Assessment and Plan - Diagnosis (1) Anemia Qualifiers: Anemia type: unspecified type Qualified Code(s): D64.9 - Anemia, unspecified Is this a current diagnosis for this admission?: Yes Plan: Patient's hemoglobin is stable at 9.3. No evidence of active bleeding at this time. We will obtain occult stool. We will check anemia panel with a.m. lab work. Start multivitamin and iron supplementation daily. (2) Nondisplaced fracture of head of left radius Qualifiers: Encounter type: initial encounter Fracture type: closed Qualified Code(s): S52.125A - Nondisplaced fracture of head of left radius, initial enc ounter for closed fracture Is this a current diagnosis for this admission?: Yes Plan: No specific injury; however, the patient did require soft limb restraints due to acute metabolic encephalopathy with agitation and had a fall from bed. Patient cannot recall specific time of injury, but now that he is alert and oriented, he is complaining of increased left arm discomfort from his baseline. Left elbow x-ray does demonstrate a nondisplaced radial head fracture. Orthopedics is consulted; appreciate Dr. Butler's evaluation and recommendat ions. Analgesics as needed; avoid narcotics as able secondary to resolving encephalopathy. (3) Coronary artery disease Qualifiers: Coronary Disease-Associated Artery/Lesion type: [place] artery Associated angina: without angina Is this a current diagnosis for this admission?: Yes Plan: Patient has a history of coronary artery disease no complaints of chest pain this hospital stay. Continue aspirin, Plavix, atorvastatin, and antihypertensive medication regiment. (4) Diabetes mellitus type 2 in obese Is this a current diagnosis for this admission?: No Plan: Hemoglobin A1c of 8.4%. Patient is placed on a consistent carb/cardiac diet. Continue Accu-Cheks before meals and at bedtime with Humalog for sliding scale coverage. Continue Lantus 30 units nightly. Hypoglycemia protocol in place. (5) Encephalopathy Is this a current diagnosis for this admission?: Yes Plan: Improved; likely acute metabolic encephalopathy secondary to sepsis as a result of left lower extremity cellulitis. Lactic acidosis has resolved. Head CT is negative for acute findings. Patient is now alert and oriented to self, place, and intermittently situation, although becomes easily confused and is repetitive questions and statements. Anticipate that his encephalopathy will continue to resolve as he recovers from his acute illness and is discharged from the hospital to a more familiar environment. Supportive care; fall precautions and bed alarm. (6) History of CVA (cerebrovascular accident) Is this a current diagnosis for this admission?: Yes Plan: Head CT was negative for acute findings. Continue aspirin, Plavix, statin therapy. Continue antihypertensive regiment. Blood pressures are acceptable. Continue antidiabetic regiment; A1c is 8.4%. (7) Morbid obesity with BMI of 40.0-44.9, adult Is this a current diagnosis for this admission?: Yes Plan: Patient is down 8 kg. Registered dietitian and nurse educator consulted. Lifestyle modification and dietary discretion are advised. (8) GIANNI (obstructive sleep apnea) Is this a current diagnosis for this admission?: Yes Plan: Continues to refuse BiPAP. Attempts to wean oxygen continued attempts to wean oxygen. (9) Left leg cellulitis Is this a current diagnosis for this admission?: Yes Plan: Resolved. Patient was initially placed on IV vancomycin and Zosyn. Switched to IV Levaquin in secondary to Klebsiella; day #6. (10) Acute kidney injury Is this a current diagnosis for this admission?: Yes Plan: Resolved; likely prerenal secondary to sepsis. (11) SIRS (systemic inflammatory response syndrome) Is this a current diagnosis for this admission?: Yes Plan: Resolved; patient with sepsis secondary to cellulitis. (12) Sepsis Qualifiers: Sepsis type: sepsis due to unspecified organism Sepsis acute organ dysfunction status: with acute organ dysfunction Severe sepsis acute organ dysfunction type: acute renal failure Severe sepsis shock status: without septic shock Is this a current diagnosis for this admission?: Yes Plan: Resolved; patient with sepsis secondary to Klebsiella UTI, developing on admission and evidenced by acute encephalopathy, acute kidney injury, elevated lactic acid, fever, tachycardia, and tachypnea. (13) Bacteremia Is this a current diagnosis for this admission?: Yes Plan: Blood cultures (1 of 4 bottles) positive for Klebsiella pneumonia, however, urine culture also positive for Klebsiella with similar resistance pattern. Repeat blood cultures will be ordered for tomorrow. Patient was initially on IV vancomycin and Zosyn; switched to IV Levaquin and is on day #6 of therapy. - Time Time Spent with patient: 35 or more minutes Medications reviewed and adjusted accordingly: Yes Anticipated discharge: Home with Homehealth Within: within 48 hours - Pending negative repeat blood culture results.
[2018-10-03] MEDS: ATORVASTATIN CALCIUM 40 MG TABLET PO SCH (21:07)
[2018-10-03] MEDS: INSULIN GLARGINE,HUM.REC.ANLOG 1,000 UNIT/10 ML VIAL SUBCUT SCH (21:08)
[2018-10-04 05:02] LABS: ABSOLUTE RETICS # 0.066 10^6/uL (0.028-0.122); HEMATOCRIT 26.8 % (37.9-51.0); MEAN CORPUSCULAR HEMOGLOBIN 29.6 pg (27.0-33.4); MEAN CORPUSCULAR HGB CONC 33.4 g/dL (32.0-36.0); MEAN CORPUSCULAR VOLUME 89 fl (80-97); PLATELET COUNT 271 10^3/uL (150-450); RED BLOOD COUNT 3.02 10^6/uL (4.35-5.55); RED CELL DISTRIBUTION WIDTH 13.7 % (11.5-14.0); RETICULOCYTE COUNT (AUTO) 2.19 % (0.66-2.85); WHITE BLOOD COUNT 7.2 10^3/uL (4.0-10.5)
[2018-10-04] MEDS: GABAPENTIN 300 MG CAPSULE PO SCH ×3 (05:15→21:04)
[2018-10-04] MEDS: HEPARIN SOD (PORCINE) 5,000 UNIT/ML 1 ML VIAL SUBCUT SCH ×3 (05:15→21:03)
[2018-10-04 05:17] LABS: ANION GAP 11 (5-19); BLOOD UREA NITROGEN 29 mg/dL (7-20); CALCIUM 9.1 mg/dL (8.4-10.2); CARBON DIOXIDE 30 mmol/L (22-30); CHLORIDE 99 mmol/L (98-107); GLUCOSE 217 mg/dL (75-110); IRON(TIBC) 23.2 ug/dL (49-181); POTASSIUM 4.4 mmol/L (3.6-5.0)
[2018-10-04] MEDS: FUROSEMIDE 20 MG TABLET PO SCH (08:21)
[2018-10-04] MEDS: FERROUS SULFATE 325 MG TABLET PO SCH ×2 (08:21→17:10)
[2018-10-04] MEDS: INSULIN LISPRO 100 UNIT/ML 3 ML VIAL SUBCUT SCH ×3 (08:21→17:10)
[2018-10-04] MEDS: LISINOPRIL 10 MG TABLET PO SCH (09:01)
[2018-10-04] MEDS: MULTIVITAMIN TABLET PO SCH (09:01)
[2018-10-04] MEDS: COLCHICINE 0.6 MG TABLET PO SCH (09:01)
[2018-10-04] MEDS: METOPROLOL SUCCINATE 50 MG TAB.SR.24H PO SCH (09:01)
[2018-10-04] MEDS: ASPIRIN 81 MG TABLET, ENT COATED PO SCH (09:01)
[2018-10-04] MEDS: CLOPIDOGREL BISULFATE 75 MG TABLET PO SCH (09:01)
--- NOTE | 2018-10-04 17:11 | PDOC PROGRESS REPORT ---
Subjective Progress Note for:: 10/04/18 Subjective:: RUSSELL PARRA is a 67 year old male with a past medical history of coronary artery disease, hypertension, morbid obesity, sleep apnea refusing BiPAP, CKD, and recent C. difficile colitis admitted 09/26/2018 forCellulitis secondary to venous stasis disease and ambulatory dysfunction. The patient was seen on afternoon rounds with his present. He is found res ting in bed, comfortably, on room air. Patient is alert and oriented to self, place, time and most of situation. He is conversationally appropriate with minimal confusion today; significantly improved from yesterday. 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 He reports that he is pleased to have been able to stand with physical therapy today; did require max assist x2 (was only ambulating a few feet with assistance at SNF prior to admission). He denies fever, chills, chest pain, palpitations, dyspnea, cough, abdominal pain, nausea, vomiting, diarrhea and lower extremity discomfort. He does continue to have left shoulder and elbow pain. Per patient and , they believe they may be able to self-pay for 3 to 4 days at SNF for short-term rehab. He reportedly has an additional 4 days left available to him. They would like to speak with discharge planning about this is an option prior to discharge home with home health services. I have no other questions or concerns at this time. No concerns per nursing. Reason For Visit: CELLULITIS/DM Physical Exam Vital Signs: Temp Pulse Resp BP Pulse Ox 98.4 F 71 18 138/62 H 98 10/04/18 12:01 10/04/18 14:00 10/04/18 12:01 10/04/18 12:01 10/04/18 12:01 Intake & Output 10/03/18 10/04/18 10/05/18 06:59 06:59 06:59 Intake Total 1175 275 25 Output Total 550 550 Balance 625 -275 25 Weight 114.6 kg 114.2 kg General appearance: PRESENT: no acute distress, cooperative, obese, well- developed, well-nourished Head exam: PRESENT: atraumatic, normocephalic Eye exam: PRESENT: conjunctiva pink, EOMI, PERRLA. ABSENT: scleral icterus Ear exam: PRESENT: normal external ear exam Mouth exam: PRESENT: moist, tongue midline Neck exam: ABSENT: carotid bruit, JVD, lymphadenopathy, thyromegaly Respiratory exam: PRESENT: clear to auscultation michaela, symmetrical, unlabored. ABSENT: rales, rhonchi, wheezes Cardiovascular exam: PRESENT: RRR, +S1, +S2. ABSENT: diastolic murmur, rubs, systolic murmur Pulses: PRESENT: normal dorsalis pedis pul Vascular exam: PRESENT: normal capillary refill GI/Abdominal exam: PRESENT: normal bowel sounds, soft. ABSENT: distended, gua rding, mass, organolmegaly, rebound, tenderness Rectal exam: PRESENT: deferred Extremities exam: PRESENT: pedal edema - +2 pitting edema to right foot, tenderness - Left shoulder and elbow. ABSENT: calf tenderness, clubbing, full ROM - Left upper extremity Neurological exam: PRESENT: alert, awake, oriented to person, oriented to place, oriented to time, oriented to situation, CN II-XII grossly intact, other - Brief intermittent confusion; significantly improved from yesterday. ABSENT: motor sensory deficit Psychiatric exam: PRESENT: appropriate affect, normal mood. ABSENT: homicidal ideation, suicidal ideation Skin exam: PRESENT: dry, intact, warm. ABSENT: cyanosis, rash Results Laboratory Results: 10/04/18 04:15 10/04/18 04:15 10/04/18 10/04/18 04:15 04:15 WBC 7.2 RBC 3.02 L Hgb 9.0 L Hct 26.8 L MCV 89 MCH 29.6 MCHC 33.4 RDW 13.7 Plt Count 271 Retic Count (auto) 2.19 Absolute Retic 0.066 Sodium 139.7 Potassium 4.4 Chloride 99 Carbon Dioxide 30 Anion Gap 11 BUN 29 H Creatinine 1.35 H Est GFR ( Amer) > 60 Est GFR (Non-Af Amer) 53 L Glucose 217 H Calcium 9.1 Iron 23.2 L TIBC 162 L % Saturation 14 Ferritin 599.00 H Vitamin B12 585.0 Folate 15.50 Impressions: Venous Doppler Study 09/25/18 00:00 IMPRESSION: No DVT is identified in the left lower extremity. Chest X-Ray 09/25/18 18:53 IMPRESSION: No evidence of acute cardiopulmonary disease. Head CT 09/30/18 08:04 IMPRESSION: NO ACUTE INTRACRANIAL FINDINGS. EVIDENCE OF ACUTE STROKE: NO. Elbow X-Ray 10/02/18 00:00 IMPRESSION: Elbow joint effusion with mild cortical irregularity at the radial head suggestive of nondisplaced radial head fracture. Shoulder X-Ray 10/02/18 00:00 IMPRESSION: No evidence of acute bony abnormality. Glenohumeral and acromioclavicular osteoarthropathy with evidence of prior rotator cuff repair. Assessment and Plan - Diagnosis (1) Anemia Qualifiers: Anemia type: iron deficiency Iron deficiency anemia type: unspecified iron deficiency Qualified Code(s): D50.9 - Iron deficiency anemia, unspecified Is this a current diagnosis for this admission?: Yes Plan: Patient's hemoglobin is stable at 9.3. No evidence of active bleeding at this time. Anemia panel reveals iron deficiency anemia. Occult stool pending. Continue multivitamin and iron supplementation daily. (2) Nondisplaced fracture of head of left radius Qualifiers: Encounter type: initial encounter Fracture type: closed Qualified Code(s): S52.125A - Nondisplaced fracture of head of left radius, initial encounter for closed fracture Is this a current diagnosis for this admission?: Yes Plan: No specific injury; however, the patient did require soft limb restraints due to acute metabolic encephalopathy with agitation and had a fall from bed. Patient cannot recall specific time of injury, but now that he is alert and oriented, he is complaining of increased left arm discomfort from his baseline. Left elbow x-ray does demonstrate a nondisplaced radial head fracture. Orthopedics is consulted; appreciate Dr. Sandoval's evaluation and recommendations. Sling for comfort w/ outpatient follow up. Analgesics as needed; avoid narcotics as able secondary to resolving encephalopathy. (3) Coronary artery disease Qualifiers: Coronary Disease-Associated Artery/Lesion type: [place] artery Associated angina: without angina Is this a current diagnosis for this admission?: Yes Plan: Patient has a history of coronary artery disease no complaints of chest pain this hospital stay. Continue aspirin, Plavix, atorvastatin, and antihypertensive medication regiment. (4) Diabetes mellitus type 2 in obese Is this a current diagnosis for this admission?: No Plan: Hemoglobin A1c of 8.4%. Patient is placed on a consistent carb/cardiac diet. Continue Accu-Cheks before meals and at bedtime with Humalog for sliding scale coverage. Increase Lantus to 32 units nightly. Hypoglycemia protocol in place. (5) Encephalopathy Is this a current diagnosis for this admission?: Yes Plan: Improved; now A&O x4 with intermittent periods of confusion. Likely acute metabolic encephalopathy secondary to sepsis as a result of left lower extremity cellulitis. Lactic acidosis has resolved. Head CT is negative for acute findings. Anticipate that his encephalopathy will continue to resolve as he recovers from his acute illness and is discharged from the hospital to a more familiar environment. Supportive care; fall precautions and bed alarm. (6) History of CVA (cerebrovascular accident) Is this a current diagnosis for this admission?: Yes Plan: Head CT was negative for acute findings. Continue aspirin, Plavix, statin therapy. Continue antihypertensive regiment. Blood pressures are acceptable. Continue antidiabetic regiment; A1c is 8.4%. (7) Morbid obesity with BMI of 40.0-44.9, adult Is this a current diagnosis for this admission?: Yes Plan: Patient is down 8 kg. Registered dietitian and coroner/medical examiner consulted. Lifestyle modification and dietary discretion are advised. (8) GIANNI (obstructive sleep apnea) Is this a current diagnosis for this admission?: Yes Plan: Continues to refuse BiPAP. Attempts to wean oxygen continued attempts to wean oxygen. (9) Left leg cellulitis Is this a current diagnosis for this admission?: Yes Plan: Resolved. Patient was initially placed on IV vancomycin and Zosyn. Switched to IV Levaquin secondary to Klebsiella; day #7. (10) Acute kidney injury Is this a current diagnosis for this admission?: Yes Plan: Resolved; likely prerenal secondary to sepsis. (11) SIRS (systemic inflammatory response syndrome) Is this a current diagnosis for this admission?: Yes Plan: Resolved; patient with sepsis secondary to cellulitis. (12) Sepsis Qualifiers: Sepsis type: sepsis due to unspecified organism Sepsis acute organ dysfunction status: with acute organ dysfunction Severe sepsis acute organ dysfunction type: acute renal failure Severe sepsis shock status: without septic shock Is this a current diagnosis for this admission?: Yes Plan: Resolved; patient with sepsis secondary to Klebsiella UTI, developing on admission and evidenced by acute encephalopathy, acute kidney injury, elevated lactic acid, fever, tachycardia, and tachypnea. (13) Bacteremia Is this a current diagnosis for this admission?: Yes Plan: Blood cultures (1 of 4 bottles) positive for Klebsiella pneumonia, however, urine culture also positive for Klebsiella with similar resistance pattern. Repeat blood cultures pending. Patient was initially on IV vancomycin and Zosyn; switched to IV Levaquin and is on day #7 of therapy. - Time Time Spent with patient: 25-34 minutes Medications reviewed and adjusted accordingly: Yes Anticipated discharge: Home with Homehealth - vs SNF for short term rehab Within: within 48 hours - pending negative BCx @ 48 hrs
[2018-10-04] MEDS: ATORVASTATIN CALCIUM 40 MG TABLET PO SCH (21:04)
[2018-10-04] MEDS: INSULIN GLARGINE,HUM.REC.ANLOG 1,000 UNIT/10 ML VIAL SUBCUT SCH (22:10)
[2018-10-05] MEDS: GABAPENTIN 300 MG CAPSULE PO SCH ×3 (06:13→21:37)
[2018-10-05] MEDS: HEPARIN SOD (PORCINE) 5,000 UNIT/ML 1 ML VIAL SUBCUT SCH ×3 (06:13→21:34)
[2018-10-05] MEDS: INSULIN LISPRO 100 UNIT/ML 3 ML VIAL SUBCUT SCH ×3 (09:03→17:38)
[2018-10-05] MEDS: FUROSEMIDE 20 MG TABLET PO SCH (09:04)
[2018-10-05] MEDS: ASPIRIN 81 MG TABLET, ENT COATED PO SCH (10:09)
[2018-10-05] MEDS: FERROUS SULFATE 325 MG TABLET PO SCH ×2 (10:09→18:48)
[2018-10-05] MEDS: CLOPIDOGREL BISULFATE 75 MG TABLET PO SCH (10:10)
[2018-10-05] MEDS: METOPROLOL SUCCINATE 50 MG TAB.SR.24H PO SCH (10:10)
[2018-10-05] MEDS: MULTIVITAMIN TABLET PO SCH (10:10)
[2018-10-05] MEDS: LISINOPRIL 10 MG TABLET PO SCH (10:10)
[2018-10-05] MEDS: COLCHICINE 0.6 MG TABLET PO SCH (10:10)
[2018-10-05] MEDS: OXYCODONE-ACETAMINOPHEN 5-325 MG TABLET PO PRN ×2 (12:38→21:37)
--- NOTE | 2018-10-05 17:06 | PDOC PROGRESS REPORT ---
Subjective Progress Note for:: 10/05/18 Subjective:: RUSSELL PARRA is a 67 year old male with a past medical history of coronary artery disease, hypertension, morbid obesity, sleep apnea refusing BiPAP, CKD, and recent C. difficile colitis admitted 09/26/2018 forCellulitis secondary to venous stasis disease and ambulatory dysfunction. The patient was seen on afternoon rounds. He is found resting in bed, comfortab ly, on room air. Patient is alert and oriented to self, year, and most of situation. He initially states that he is at a high school, but then self corrects. He is conversationally appropriate with slight confusion today; overall improved. He denies fever, chills, chest pain, palpitations, dyspnea, cough, abdominal pain, nausea, vomiting, diarrhea and lower extremity discomfort. He does contin ue to have left shoulder and elbow pain. He has no questions or concerns today. No concerns per nursing. Reason For Visit: CELLULITIS/DM Physical Exam Vital Signs: Temp Pulse Resp BP Pulse Ox 97.7 F 69 16 142/95 H 95 10/05/18 14:59 10/05/18 14:59 10/05/18 14:59 10/05/18 14:59 10/05/18 14:59 Intake & Output 10/04/18 10/05/18 10/06/18 06:59 06:59 06:59 Intake Total 275 275 100 Output Total 550 725 200 Balance -275 -450 -100 Weight 114.2 kg 113.9 kg General appearance: PRESENT: no acute distress, cooperative, morbidly obese, well-developed, well-nourished Head exam: PRESENT: atraumatic, normocephalic Eye exam: PRESENT: conjunctiva pink, EOMI, PERRLA. ABSENT: scleral icterus Ear exam: PRESENT: normal external ear exam Mouth exam: PRESENT: moist, tongue midline Neck exam: ABSENT: carotid bruit, JVD, lymphadenopathy, thyromegaly Respiratory exam: PRESENT: clear to auscultation michaela, symmetrical, unlabored. ABSENT: rales, rhonchi, wheezes Cardiovascular exam: PRESENT: RRR, +S1, +S2. ABSENT: diastolic murmur, rubs, systolic murmur Pulses: PRESENT: normal dorsalis pedis pul Vascular exam: PRESENT: normal capillary refill GI/Abdominal exam: PRESENT: normal bowel sounds, soft. ABSENT: distended, guarding, mass, organolmegaly, rebound, tenderness Rectal exam: PRESENT: deferred Extremities exam: PRESENT: full ROM. ABSENT: calf tenderness, clubbing, pedal edema Neurological exam: PRESENT: alert, awake, oriented to person, oriented to time, oriented to situation, CN II-XII grossly intact, other - Intermittent confusion; self corrects.. ABSENT: oriented to place, motor sensory deficit Psychiatric exam: PRESENT: appropriate affect, normal mood. ABSENT: homicidal ideation, suicidal ideation Skin exam: PRESENT: dry, intact, warm. ABSENT: cyanosis, rash Results Laboratory Results: 10/04/18 04:15 10/04/18 04:15 Impressions: Venous Doppler Study 09/25/18 00:00 IMPRESSION: No DVT is identified in the left lower extremity. Chest X-Ray 09/25/18 18:53 IMPRESSION: No evidence of acute cardiopulmonary disease. Head CT 09/30/18 08:04 IMPRESSION: NO ACUTE INTRACRANIAL FINDINGS. EVIDENCE OF ACUTE STROKE: NO. Elbow X-Ray 10/02/18 00:00 IMPRESSION: Elbow joint effusion with mild cortical irregularity at the radial head suggestive of nondisplaced radial head fracture. Shoulder X-Ray 10/02/18 00:00 IMPRESSION: No evidence of acute bony abnormality. Glenohumeral and acromioclavicular osteoarthropathy with evidence of prior rotator cuff repair. Assessment and Plan - Diagnosis (1) Anemia Qualifiers: Anemia type: iron deficiency Iron deficiency anemia type: unspecified iron deficiency Qualified Code(s): D50.9 - Iron deficiency anemia, unspecified Is this a current diagnosis for this admission?: Yes Plan: Patient's hemoglobin is stable at 9.0 No evidence of active bleeding at this time. Anemia panel reveals iron deficiency anemia. Occult stool pending. Continue multivitamin and iron supplementation daily. (2) Nondisplaced fracture of head of left radius Qualifiers: Encounter type: initial encounter Fracture type: closed Qualified Code(s): S52.125A - Nondisplaced fracture of head of left radius, initial encounter for closed fracture Is this a current diagnosis for this admission?: Yes Plan: No specific injury; however, the patient did require soft limb restraints due to acute metabolic encephalopathy with agitation and had a fall from bed. Patient cannot recall specific time of injury, but now that he is alert and oriented, he is complaining of increased left arm discomfort from his baseline. Left elbow x-ray does demonstrate a nondisplaced radial head fracture. Orthopedics is consulted; appreciate Dr. Sandoval's evaluation and recommendations. Sling for comfort w/ outpatient follow up. Analgesics as needed; avoid narcotics as able secondary to resolving encephalopathy. (3) Coronary artery disease Qualifiers: Coronary Disease-Associated Artery/Lesion type: [place] artery Associated angina: without angina Is this a current diagnosis for this admission?: Yes Plan: Patient has a history of coronary artery disease no complaints of chest pain this hospital stay. Continue aspirin, Plavix, atorvastatin, and antihypertensive medication regiment. (4) Diabetes mellitus type 2 in obese Is this a current diagnosis for this admission?: No Plan: Hemoglobin A1c of 8.4%. Patient is placed on a consistent carb/cardiac diet. Continue Accu-Cheks before meals and at bedtime with Humalog for sliding scale coverage. Continue Lantus to 32 units nightly. Hypoglycemia protocol in place. (5) Encephalopathy Is this a current diagnosis for this admission?: Yes Plan: Improved; now A&O x3 with intermittent periods of confusion. Likely acute metabolic encephalopathy secondary to sepsis as a result of left lower extremity cellulitis. Lactic acidosis has resolved. Head CT is negative for acute findings. Anticipate that his encephalopathy will continue to resolve as he recovers from his acute illness and is discharged from the hospital to a more familiar environment. Supportive care; fall precautions and bed alarm. (6) History of CVA (cerebrovascular accident) Is this a current diagnosis for this admission?: Yes Plan: Head CT was negative for acute findings. Continue aspirin, Plavix, statin therapy. Continue antihypertensive regiment. Blood pressures are acceptable. Continue antidiabetic regiment; A1c is 8.4%. (7) Morbid obesity with BMI of 40.0-44.9, adult Is this a current diagnosis for this admission?: Yes Plan: Patient is down 8 kg. Registered dietitian and community educator consulted. Lifestyle modification and dietary discretion are advised. (8) GIANNI (obstructive sleep apnea) Is this a current diagnosis for this admission?: Yes Plan: Continues to refuse BiPAP. Attempts to wean oxygen continued attempts to wean oxygen. (9) Left leg cellulitis Is this a current diagnosis for this admission?: Yes Plan: Resolved. Patient was initially placed on IV vancomycin and Zosyn. Switched to IV Levaquin secondary to Klebsiella; day #8. (10) Acute kidney injury Is this a current diagnosis for this admission?: Yes Plan: Resolved; likely prerenal secondary to sepsis. (11) SIRS (systemic inflammatory response syndrome) Is this a current diagnosis for this admission?: Yes Plan: Resolved; patient with sepsis secondary to cellulitis. (12) Sepsis Qualifiers: Sepsis type: sepsis due to unspecified organism Sepsis acute organ dysfunction status: with acute organ dysfunction Severe sepsis acute organ dysfunction type: acute renal failure Severe sepsis shock status: without septic shock Is this a current diagnosis for this admission?: Yes Plan: Resolved; patient with sepsis secondary to Klebsiella UTI, developing on admission and evidenced by acute encephalopathy, acute kidney injury, elevated lactic acid, fever, tachycardia, and tachypnea. (13) Bacteremia Is this a current diagnosis for this admission?: Yes Plan: Blood cultures (1 of 4 bottles) positive for Klebsiella pneumonia, however, urine culture also positive for Klebsiella with similar resistance pattern. Repeat blood cultures negative at 24 hours Patient was initially on IV vancomycin and Zosyn; switched to IV Levaquin and is on day #8 of therapy. - Time Time Spent with patient: 25-34 minutes Medications reviewed and adjusted accordingly: Yes Anticipated discharge: [facility] [place] Within: within 24 hours
[2018-10-05] MEDS: INSULIN GLARGINE,HUM.REC.ANLOG 1,000 UNIT/10 ML VIAL SUBCUT SCH (21:36)
[2018-10-05] MEDS: ATORVASTATIN CALCIUM 40 MG TABLET PO SCH (21:37)
[2018-10-06] MEDS: HEPARIN SOD (PORCINE) 5,000 UNIT/ML 1 ML VIAL SUBCUT SCH ×2 (06:23→14:24)
[2018-10-06] MEDS: GABAPENTIN 300 MG CAPSULE PO SCH ×2 (06:23→14:22)
[2018-10-06] MEDS: FERROUS SULFATE 325 MG TABLET PO SCH (08:02)
[2018-10-06] MEDS: FUROSEMIDE 20 MG TABLET PO SCH (08:02)
[2018-10-06] MEDS: INSULIN LISPRO 100 UNIT/ML 3 ML VIAL SUBCUT SCH ×2 (08:02→12:44)
[2018-10-06] MEDS: METOPROLOL SUCCINATE 50 MG TAB.SR.24H PO SCH (09:26)
[2018-10-06] MEDS: MULTIVITAMIN TABLET PO SCH (09:27)
[2018-10-06] MEDS: COLCHICINE 0.6 MG TABLET PO SCH (09:27)
[2018-10-06] MEDS: OXYCODONE-ACETAMINOPHEN 5-325 MG TABLET PO PRN (09:27)
[2018-10-06] MEDS: LISINOPRIL 10 MG TABLET PO SCH (09:27)
[2018-10-06] MEDS: ASPIRIN 81 MG TABLET, ENT COATED PO SCH (09:27)
[2018-10-06] MEDS: CLOPIDOGREL BISULFATE 75 MG TABLET PO SCH (09:27)
[2018-10-06 12:07] VITALS: BP 124/52
--- NOTE | 2018-10-06 12:47 | PDOC TRANSFER SUMMARY ---
General - Admit/Disc Date/PCP Admission Date/Primary Care Provider: 09/27/18 10:13 THOMAS PELAEZ MD Discharge Date: 10/06/18 - Discharge Diagnosis (1) Anemia Is this a current diagnosis for this admission?: Yes Summary: Patient's hemoglobin is stable at 9.0 No evidence of active bleeding at this time. Anemia panel reveals iron deficiency anemia. Recommend continued multivitamin and iron supplementation daily. Recommend routine laboratory monitoring. (2) Nondisplaced fracture of head of left radius Is this a current diagnosis for this admission?: Yes Summary: No specific injury; however, the patient did require soft limb restraints due to acute metabolic encephalopathy with agitation and had a fall from bed. Patient cannot recall specific time of injury, but now that he is alert and oriented, he is complaining of increased left arm discomfort from his baseline. Left elbow x-ray does demonstrate a nondisplaced radial head fracture. Orthopedics is consulted; appreciate Dr. Sandoval's evaluation and recommendations. Sling for comfort. Follow up with Dr. Sandoval in 2 weeks. (3) Coronary artery disease Is this a current diagnosis for this admission?: Yes Summary: Patient has a history of coronary artery disease no complaints of chest pain this hospital stay. Continue aspirin, Plavix, atorvastatin, and antihypertensive medication regiment. (4) Diabetes mellitus type 2 in obese Is this a current diagnosis for this admission?: No Summary: Hemoglobin A1c of 8.4%. Patient is placed on a consistent carb/cardiac diet. Continue Accu-Cheks before meals and at bedtime with insulin for sliding scale coverage. Continue Lantus to 32 units nightly. (5) Encephalopathy Is this a current diagnosis for this admission?: Yes Summary: Improved; now A&O x3 with brief intermittent periods of confusion. Likely acute metabolic encephalopathy secondary to sepsis as a result of left lower extremity cellulitis. Lactic acidosis has resolved. Head CT is negative for acute findings. Anticipate that his encephalopathy will continue to resolve as he recovers from his acute illness and is discharged from the hospital to a more familiar environment. Supportive care and fall precautions. (6) History of CVA (cerebrovascular accident) Is this a current diagnosis for this admission?: Yes Summary: Head CT was negative for acute findings. Continue aspirin, Plavix, statin therapy. Continue antihypertensive regiment. Blood pressures are acceptable. Continue antidiabetic regiment; A1c is 8.4%. (7) Morbid obesity with BMI of 40.0-44.9, adult Is this a current diagnosis for this admission?: Yes Summary: Head CT was negative for acute findings. Continue aspirin, Plavix, statin therapy. Continue antihypertensive regiment. Blood pressures are acceptable. Continue antidiabetic regiment; A1c is 8.4%. (8) GIANNI (obstructive sleep apnea) Is this a current diagnosis for this admission?: Yes (9) Left leg cellulitis Is this a current diagnosis for this admission?: Yes Summary: Resolved. Patient was initially placed on IV vancomycin and Zosyn. Switched to IV Levaquin secondary to Klebsiella; completed full course of antibiotic therapy. (10) Acute kidney injury Is this a current diagnosis for this admission?: Yes Summary: Resolved; likely prerenal secondary to sepsis. (11) SIRS (systemic inflammatory response syndrome) Is this a current diagnosis for this admission?: Yes Summary: Resolved; patient with sepsis secondary to cellulitis. (12) Sepsis Is this a current diagnosis for this admission?: Yes Summary: Resolved; patient with sepsis secondary to Klebsiella UTI, developing on admission and evidenced by acute encephalopathy, acute kidney injury, elevated lactic acid, fever, tachycardia, and tachypnea. (13) Bacteremia Is this a current diagnosis for this admission?: Yes Summary: Blood cultures (1 of 4 bottles) positive for Klebsiella pneumonia, however, urine culture also positive for Klebsiella with similar resistance pattern. Repeat blood cultures negative at 48 hours Patient was initially on IV vancomycin and Zosyn; switched to IV Levaquin based on culture results. Received full course of antibiotic therapy. - Additional Information Resuscitation Status: Full Code Discharge Diet: Cardiac, Diabetic Discharge Activity: Activity As Tolerated, Balance Activity w/Rest, Slowly Increase Activity, Supervised Activity Prescriptions: Clonidine [Catapres-Tts 1 (0.1 mg/24 Hr) Transderm Patch] 1 each TD Matthew@10 #4 patch.tdwk Ferrous Sulfate [Feosol 325 mg Tablet] 325 mg PO BIDPCBS #60 tablet Multivitamin [Tab-A-Kevin (Multiple Vitamin) Tablet] 1 tab PO DAILY #90 tablet Oxycodone HCl/Acetaminophen [Percocet 5-325 mg Tablet] 1 tab PO Q6HP PRN #12 tablet PRN Reason: Home Medications: Clopidogrel Bisulfate [Plavix 75 mg Tablet] 75 mg PO DAILY 08/31/18 Colchicine [Colchicine 0.6 mg Tablet] 0.6 mg PO DAILY 08/31/18 Gabapentin [Neurontin 300 mg Capsule] 300 mg PO Q8 08/31/18 Insulin Aspart [Novolog Flexpen] 30 unit SQ AC 08/31/18 Metoprolol Succinate [Toprol XL 100 mg Tablet] 100 mg PO DAILY 08/31/18 Aspirin [Ecotrin 81 mg EC Tablet] 81 mg PO DAILY #30 tabec 09/06/18 Atorvastatin Calcium [Lipitor 40 mg Tablet] 40 mg PO QHS #30 tablet 09/06/18 Furosemide [Lasix 20 mg Tablet] 20 mg PO QAM #30 tablet 09/06/18 Lisinopril [Prinivil 10 mg Tablet] 20 mg PO DAILY #30 tablet 09/06/18 Potassium Chloride [Klor-Con 10 Meq Capsule ER] 10 meq PO DAILY #5 capsule.er 09/06/18 Carbamazepine [Tegretol 200 mg Tablet] 200 mg PO BID 09/16/18 Insulin Lispro [Humalog Insulin (Lispro) 100 unit/mL] 0 unit SUBCUT .SLD SCALE 09/26/18 Metformin HCl [Glucophage 500 mg Tablet] 500 mg PO QPM 09/26/18 Acetaminophen [Tylenol 325 mg Tablet] 650 mg PO Q4HP PRN tablet 10/06/18 Clonidine [Catapres-Tts 1 (0.1 mg/24 Hr) Transderm Patch] 1 each TD Matthew@10 #4 patch.tdwk 10/06/18 Ferrous Sulfate [Feosol 325 mg Tablet] 325 mg PO BIDPCBS #60 tablet 10/06/18 Multivitamin [Tab-A-Kevin (Multiple Vitamin) Tablet] 1 tab PO DAILY #90 tablet 10/06/18 Oxycodone HCl/Acetaminophen [Percocet 5-325 mg Tablet] 1 tab PO Q6HP PRN #12 t ablet 10/06/18 History of Present Illness Admission Date/PCP: 09/27/18 10:13 THOMAS PELAEZ MD History of Present Illness: Per H&P by Dr. Hernandez: RUSSELL PARRA is a 67 year old male with a past medical history of coronary artery disease, hypertension, morbid obesity, sleep apnea refusing BiPAP, CKD, and recent C. difficile colitis. He is presents with 24 hours of subjective fever, left leg pain swelling and erythema. In the emergency department he is found to have borderline hypotension, fever, pain erythema and swelling to his left leg. He started on vancomycin and Zosyn then referred to the hospitalist for admission. He admits several episodes of venous stasis in this extremity in the past. Physical Exam Vital Signs: Temp Pulse Resp BP Pulse Ox 97.5 F 66 16 124/52 L 95 10/06/18 10:40 10/06/18 10:40 10/06/18 07:20 10/06/18 10:40 10/06/18 10:40 Intake & Output 10/05/18 10/06/18 10/07/18 06:59 06:59 06:59 Intake Total 275 400 480 Output Total 725 700 Balance -450 -300 480 Weight 113.9 kg 114.3 kg General appearance: PRESENT: no acute distress, cooperative, morbidly obese, well-developed, well-nourished Head exam: PRESENT: atraumatic, normocephalic Eye exam: PRESENT: conjunctiva pink, EOMI, PERRLA. ABSENT: scleral icterus Ear exam: PRESENT: normal external ear exam Mouth exam: PRESENT: moist, tongue midline Neck exam: ABSENT: carotid bruit, JVD, lymphadenopathy, thyromegaly Respiratory exam: PRESENT: clear to auscultation michaela, symmetrical, unlabored. ABSENT: rales, rhonchi, wheezes Cardiovascular exam: PRESENT: RRR, +S1, +S2. ABSENT: diastolic murmur, rubs, systolic murmur Pulses: PRESENT: normal dorsalis pedis pul Vascular exam: PRESENT: normal capillary refill GI/Abdominal exam: PRESENT: normal bowel sounds, soft. ABSENT: distended, guarding, mass, organolmegaly, rebound, tenderness Rectal exam: PRESENT: deferred Extremities exam: PRESENT: full ROM. ABSENT: calf tenderness, clubbing, pedal edema Neurological exam: PRESENT: alert, awake, oriented to person, oriented to place, oriented to time, oriented to situation, CN II-XII grossly intact, other - brief, intermittent confusion; overall improved. ABSENT: motor sensory deficit Psychiatric exam: PRESENT: appropriate affect, normal mood. ABSENT: homicidal ideation, suicidal ideation Skin exam: PRESENT: dry, intact, warm, other - chronic venous stasis changes to BLE. ABSENT: cyanosis, rash Results Laboratory Results: 10/04/18 04:15 10/04/18 04:15 Impressions: Venous Doppler Study 09/25/18 00:00 IMPRESSION: No DVT is identified in the left lower extremity. Chest X-Ray 09/25/18 18:53 IMPRESSION: No evidence of acute cardiopulmonary disease. Head CT 09/30/18 08:04 IMPRESSION: NO ACUTE INTRACRANIAL FINDINGS. EVIDENCE OF ACUTE STROKE: NO. Elbow X-Ray 10/02/18 00:00 IMPRESSION: Elbow joint effusion with mild cortical irregularity at the radial head suggestive of nondisplaced radial head fracture. Shoulder X-Ray 10/02/18 00:00 IMPRESSION: No evidence of acute bony abnormality. Glenohumeral and acromioclavicular osteoarthropathy with evidence of prior rotator cuff repair. Transfer Plan - Disposition Transfer Plan: Discharge to SNF for short term rehab. - Time Spent with Patient Time spent with patient: Less than 30 Minutes Qualifiers - * PATIENT BEING DISCHARGED WITH ANY OF THE FOLLOWING DIAGNOSIS: No Acute Heart Failure - Is this a Heart Failure Patient?: No Plan Discharge Plan: Discharge to SNF for short term rehab. Time Spent: Greater than 30 Minutes
== END 2018-10-06 15:01 | DRG 871 ==
LOC: ER 18:48 → EH 22:50 → INTOOBSV 22:50 → 5 09-26 01:15 → OBSVTOIN 09-27 10:13 → 3W 09-27 14:19
PROVIDERS: ADMIT Internal Medicine; ATTEND Internal Medicine
DX: A41.9 Sepsis, unspecified organism (principal); G93.41 Metabolic encephalopathy; N17.9 Acute kidney failure, unspecified; Z68.41 Body mass index [BMI] 40.0-44.9, adult; L03.116 Cellulitis of left lower limb; N39.0 Urinary tract infection, site not specified; E11.22 Type 2 diabetes mellitus with diabetic chronic kidney disease; E87.5 Hyperkalemia; Z99.2 Dependence on renal dialysis; E66.01 Morbid (severe) obesity due to excess calories; N18.3 Chronic kidney disease, stage 3 (moderate); G47.33 Obstructive sleep apnea (adult) (pediatric); S52.125A Nondisplaced fracture of head of left radius, initial encounter for closed fracture; B96.1 Klebsiella pneumoniae [K. pneumoniae] as the cause of diseases classified elsewhere; I12.9 Hypertensive chronic kidney disease with stage 1 through stage 4 chronic kidney disease, or unspecified chronic kidney disease; E78.5 Hyperlipidemia, unspecified; K21.9 Gastro-esophageal reflux disease without esophagitis; M19.90 Unspecified osteoarthritis, unspecified site; M10.9 Gout, unspecified; D63.1 Anemia in chronic kidney disease; I87.8 Other specified disorders of veins; R45.1 Restlessness and agitation; W06.XXXA Fall from bed, initial encounter; Y92.239 Unspecified place in hospital as the place of occurrence of the external cause; D50.9 Iron deficiency anemia, unspecified; I25.10 Atherosclerotic heart disease of native coronary artery without angina pectoris; Z86.73 Personal history of transient ischemic attack (TIA), and cerebral infarction without residual deficits; Z79.82 Long term (current) use of aspirin; Z79.02 Long term (current) use of antithrombotics/antiplatelets; Z79.4 Long term (current) use of insulin; Z91.19 Patient's noncompliance with other medical treatment and regimen; I25.2 Old myocardial infarction; Z95.1 Presence of aortocoronary bypass graft; Z95.5 Presence of coronary angioplasty implant and graft; Z74.01 Bed confinement status; Z83.3 Family history of diabetes mellitus; Z82.49 Family history of ischemic heart disease and other diseases of the circulatory system
CPT/HCPCS: 36415; 70450; 71045; 71046; 80048; 80053; 80177; 81001; 82140; 82607; 82728; 82746; 82803; 82962; 83036; 83540; 83550; 83605; 83735; 84550; 85025; 85027; 85045; 85610; 87040; 87070; 87077; 87086; 87088; 87186; 93005; 93010; 93971; 94640; 96374; 99285; G0378; J1630; J1644; J1815; J1885; J1953; J1956; J2060; J2543; J3370; J3475; J3486; J3490; J7030; J7050; J7620

== ENCOUNTER → 2019-04-16 | Outpatient (CLI) | payer MEDICARE, OTHER | LOC: SP 08:47 | PROVIDERS: ATTEND Nurse Practitioner Family | DX: L97.512 Non-pressure chronic ulcer of other part of right foot with fat layer exposed (principal) | CPT/HCPCS: 93922; 93925 ==

== ENCOUNTER → 2019-05-22 | Outpatient (CLI) | payer MEDICARE, OTHER ==
[2019-05-22 12:30] LABS: ABSOLUTE EOSINOPHILS # (AUTO) 0.2 10^3/uL (0.0-0.6); ABSOLUTE LYMPHOCYTES (AUTO) 1.9 10^3/uL (0.5-4.7); ABSOLUTE MONOCYTES (AUTO) 0.3 10^3/uL (0.1-1.4); ABSOLUTE NEUT (AUTO) 4.2 10^3/uL (1.7-8.2); BASOPHILS % (AUTO) 0.1 % (0-2); EOSINOPHILS % (AUTO) 2.5 % (0-6); HEMOGLOBIN 13.8 g/dL (13.5-17.0); LYMPHOCYTES % (AUTO) 28.2 % (13-45); MEAN CORPUSCULAR HGB CONC 35.5 g/dL (32.0-36.0); MEAN CORPUSCULAR VOLUME 90 fl (80-97); MONOCYTES % (AUTO) 5.2 % (3-13); PLATELET COUNT 179 10^3/uL (150-450); RED BLOOD COUNT 4.32 10^6/uL (4.35-5.55); RED CELL DISTRIBUTION WIDTH 12.9 % (11.5-14.0); TOTAL CELLS COUNTED % (AUTO) 100 %; WHITE BLOOD COUNT 6.6 10^3/uL (4.0-10.5)
--- NOTE | 2019-05-22 12:35 | RADIOLOGY REPORT (SQ) ---
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 TECHNIQUE: AP, lateral and oblique radiographic images acquired of the right foot. LIMITATIONS: None. FINDINGS: MINERALIZATION: Normal. BONES: No acute fracture or dislocation. No worrisome bone lesions. JOINTS: Degenerative changes in the 1st metatarsal phalangeal joint. SOFT TISSUES: No soft tissue swelling. No foreign body. OTHER: Calcaneal spurs. IMPRESSION: No conventional radiographic evidence of osteomyelitis. Degenerative changes. TECHNICAL DOCUMENTATION: JOB ID: [id number] 2010 [employer]- All Rights Reserved Reading location - IP/workstation name: [email or web address]
[2019-05-22 13:03] LABS: ALBUMIN 3.8 g/dL (3.5-5.0); ALKALINE PHOSPHATASE 77 U/L (38-126); ANION GAP 9 (5-19); ASPARTATE AMINO TRANSFERASE 23 U/L (17-59); BILIRUBIN,TOTAL 0.3 mg/dL (0.2-1.3); BLOOD UREA NITROGEN 25 mg/dL (7-20); C-REACTIVE PROTEIN 10.8 mg/L (<10.0); CALCIUM 9.4 mg/dL (8.4-10.2); CARBON DIOXIDE 33 mmol/L (22-30); CHLORIDE 94 mmol/L (98-107); POTASSIUM 4.8 mmol/L (3.6-5.0); TOTAL PROTEIN 6.5 g/dL (6.3-8.2)
[2019-05-22 13:20] LABS: ERYTHROCYTE SEDIMENTATION RATE 38 mm/hr (0-20)
[2019-05-22 13:23] LABS: GLUCOSE 439 mg/dL (75-110)
== END ==
LOC: WC 11:39
PROVIDERS: ATTEND Nurse Practitioner Family
DX: E11.621 Type 2 diabetes mellitus with foot ulcer (principal); L97.512 Non-pressure chronic ulcer of other part of right foot with fat layer exposed
CPT/HCPCS: 36415; 80053; 85025; 85652; 86140

== ENCOUNTER → 2019-07-03 | Outpatient (CLI) | payer MEDICARE, OTHER ==
[2019-07-03 12:47] LABS: ABSOLUTE EOSINOPHILS # (AUTO) 0.2 10^3/uL (0.0-0.6); ABSOLUTE LYMPHOCYTES (AUTO) 2.7 10^3/uL (0.5-4.7); ABSOLUTE MONOCYTES (AUTO) 0.4 10^3/uL (0.1-1.4); ABSOLUTE NEUT (AUTO) 3.7 10^3/uL (1.7-8.2); EOSINOPHILS % (AUTO) 3.1 % (0-6); HEMATOCRIT 37.3 % (37.9-51.0); HEMOGLOBIN 13.1 g/dL (13.5-17.0); LYMPHOCYTES % (AUTO) 38.3 % (13-45); MEAN CORPUSCULAR HEMOGLOBIN 31.9 pg (27.0-33.4); MEAN CORPUSCULAR HGB CONC 35.2 g/dL (32.0-36.0); MEAN CORPUSCULAR VOLUME 91 fl (80-97); MONOCYTES % (AUTO) 6.3 % (3-13); PLATELET COUNT 196 10^3/uL (150-450); RED BLOOD COUNT 4.12 10^6/uL (4.35-5.55); RED CELL DISTRIBUTION WIDTH 13.2 % (11.5-14.0); SEGMENTED NEUTROPHILS % (AUTO) 52.3 % (42-78); TOTAL CELLS COUNTED % (AUTO) 100 %
[2019-07-03 13:06] LABS: ALBUMIN 4.2 g/dL (3.5-5.0); ALKALINE PHOSPHATASE 59 U/L (38-126); ANION GAP 6 (5-19); ASPARTATE AMINO TRANSFERASE 24 U/L (17-59); BILIRUBIN,TOTAL 0.3 mg/dL (0.2-1.3); BLOOD UREA NITROGEN 27 mg/dL (7-20); C-REACTIVE PROTEIN 12.4 mg/L (<10.0); CALCIUM 9.4 mg/dL (8.4-10.2); CARBON DIOXIDE 34 mmol/L (22-30); CHLORIDE 99 mmol/L (98-107); GLUCOSE 118 mg/dL (75-110); POTASSIUM 4.9 mmol/L (3.6-5.0)
[2019-07-03 13:35] LABS: ERYTHROCYTE SEDIMENTATION RATE 47 mm/hr (0-20)
--- NOTE | 2019-07-03 13:39 | RADIOLOGY REPORT (SQ) ---
EXAM DESCRIPTION: FOOT RIGHT COMPLETE IMAGES COMPLETED DATE/TIME: 07/03/2019 1:27 pm REASON FOR STUDY: NON-PRS CHRONIC ULCER OTH PRT RIGHT FOOT W FAT LAYER EXPOSED L97.512 NON-PRS STAFF RADIOGRAPHER PAULA ULCER OTH PRT RIGHT FOOT W FAT LAYER E11.622 TYPE 2 DIABETES MELLITUS WITH OTHER SKIN ULCER COMPARISON: None. NUMBER OF VIEWS: Three views. TECHNIQUE: AP, lateral and oblique radiographic images acquired of the right foot. LIMITATIONS: None. FINDINGS: MINERALIZATION: Normal. BONES: No acute fracture or dislocation. No worrisome bone lesions. JOINTS: No effusions. SOFT TISSUES: There is soft tissue swelling dorsally. OTHER: Calcaneal spurs most prominent at the insertion site of the Achilles tendon. IMPRESSION: Diffuse soft tissue swelling. No conventional radiographic evidence of osteomyelitis. TECHNICAL DOCUMENTATION: JOB ID: [id number] 2010 [employer]- All Rights Reserved Reading location - IP/workstation name: [email or web address]
== END ==
LOC: WC 11:58
PROVIDERS: ATTEND Nurse Practitioner Family
DX: E11.622 Type 2 diabetes mellitus with other skin ulcer (principal); L97.512 Non-pressure chronic ulcer of other part of right foot with fat layer exposed
CPT/HCPCS: 36415; 80053; 83036; 85025; 85652; 86140

== ENCOUNTER 2019-10-20 14:29 | Emergency (ER) | payer MEDICARE, OTHER ==
--- NOTE | 2019-10-20 14:57 | ER Document Report ---
ED Medical Screen (RME) - General Chief Complaint: Shortness Of Breath Stated Complaint: BLOOD SUGAR ISSUES Time Seen by Provider: 10/20/19 14:52 Primary Care Provider: TYREL ELI NP, LOGISTICS SOLUTION MANAGER [Primary Care Provider] - Follow up as needed Notes: HPI: 68-year-old male who is a poor historian presenting primarily for cough for 3 to 4 days with shortness of breath over the last 24 hours. No specific chest pain. Patient is an insulin-dependent diabetic cannot tell me whether he has had heart issues in the past. Patient has had some nausea vomiting today. Patient overall just states he does not feel well. PHYSICAL EXAMINATION: Patient appears mildly ill, poor historian, lung sounds are decreased in all bases. There is a dressing on the right foot. No abdominal pain on palpation I have greeted and performed a rapid initial assessment of this patient. A comprehensive ED assessment and evaluation of the patient, analysis of test results and completion of medical decision making process will be conducted by an additional ED providers. TRAVEL OUTSIDE OF THE [place] IN LAST 30 DAYS: No - Related Data Allergies/Adverse Reactions: No Known Allergies Allergy (Verified 09/15/18 15:33) Past Medical History - Past Medical History Cardiac Medical History: Reports: Hx Coronary Artery Disease, Hx Heart Attack, Hx Hypercholesterolemia, Hx Hypertension Pulmonary Medical History: Reports: Hx Asthma - IN PAST, Hx Sleep Apnea - cpap did not help Denies: Hx Bronchitis, Hx COPD, Hx Pneumonia, Hx Tuberculosis Neurological Medical History: Reports: Hx Cerebrovascular Accident - R SIDE WEAKNESS. Denies: Hx Seizures Endocrine Medical History: Reports: Hx Diabetes Mellitus Type 2. Denies: Hx Diabetes Mellitus Type 1, Hx Hyperthyroidism, Hx Hypothyroidism Renal/ Medical History: Denies: Hx Peritoneal Dialysis GI Medical History: Reports: Hx Gastroesophageal Reflux Disease. Denies: Hx Cirrhosis, Hx Crohn's Disease, Hx Hepatitis, Hx Hiatal Hernia, Hx Ulcer, Hx Ulcerative Colitis Musculoskeltal Medical History: Reports Hx Arthritis - GENERALIZED, Denies Hx Fibromyalgia, Reports Hx Gout Skin Medical History: Reports Hx Cellulitis - Lower extremity cellulitis due to chronic edema, Denies Hx Eczema, Denies Hx Psoriasis Psychiatric Medical History: Denies: Hx Depression Traumatic Medical History: Reports: Hx Fractures - right gallegos Infectious Medical History: Reports: Hx C-Diff. Denies: Hx Hepatitis Past Surgical History: Reports: Hx Appendectomy, Hx Cardiac Catheterization, Hx Cholecystectomy, Hx Coronary Artery Bypass Graft - 5 vessels, Hx Coronary Stent, Hx Open Heart Surgery - STENT bypass. Denies: Hx Pacemaker - Immunizations Hx Diphtheria, Pertussis, Tetanus Vaccination: No Physical Exam - Vital signs Vitals: Temp Pulse Resp BP Pulse Ox 97.6 F 89 20 122/65 96 10/20/19 14:45 10/20/19 14:45 10/20/19 14:45 10/20/19 14:45 10/20/19 14:45 Course - Vital Signs Vital signs: Temp Pulse Resp BP Pulse Ox 97.6 F 89 20 122/65 96 10/20/19 14:45 10/20/19 14:45 10/20/19 14:45 10/20/19 14:45 10/20/19 14:45 Doctor's Discharge - Discharge Referrals: TYREL ELI NP, LOGISTICS SOLUTION MANAGER [Primary Care Provider] - Follow up as needed
--- NOTE | 2019-10-20 15:34 | RADIOLOGY REPORT (SQ) ---
EXAM DESCRIPTION: CHEST SINGLE VIEW IMAGES COMPLETED DATE/TIME: 10/20/2019 3:20 pm REASON FOR STUDY: sob COMPARISON: AP chest 09/25/2018, two-view chest 09/24/2018 EXAM PARAMETERS: NUMBER OF VIEWS: One view. TECHNIQUE: Single frontal radiographic view of the chest acquired. RADIATION DOSE: NA LIMITATIONS: None. FINDINGS: LUNGS AND PLEURA: No acute infiltrates. No pleural effusion or pneumothorax. Minimal heraclio gular scarring. MEDIASTINUM AND HILAR STRUCTURES: No masses. Contour normal. HEART AND VASCULAR STRUCTURES: Sternotomy for CABG. No cardiomegaly BONES: No acute findings. HARDWARE: None in the chest. OTHER: No other significant finding. IMPRESSION: NO ACUTE RADIOGRAPHIC FINDING IN THE CHEST. TECHNICAL DOCUMENTATION: JOB ID: [id number] 2010 [employer]- All Rights Reserved Reading location - IP/workstation name: [email or web address]
--- NOTE | 2019-10-20 16:37 | ER Document Report ---
ED Medical Screen (RME) - General Chief Complaint: Shortness Of Breath Stated Complaint: BLOOD SUGAR ISSUES Time Seen by Provider: 10/20/19 14:52 Primary Care Provider: TYREL ELI NP, SERVER DEVELOPER [NURSE PRACTITIONER] - Follow up as needed Mode of Arrival: Ambulatory Information source: Patient Notes: 10/20/19 14:50 - ED Nursing Note by ZANDERBONI Acct Num: [id number] : 1950 Patient Age: 68 Pt presents to the ED for SOB. Pt states he has been having SOB since yesterday. Pt notes associated cough, nausea and vomiting. Pt is A&Ox4, breaths even, mildly labored, NAD, speaking in complete sentences. Initialized on 10/20/19 14:50 - END OF NOTE ED Medical Screen (Fair notes) - General Chief Complaint: Shortness Of Breath Stated Complaint: BLOOD SUGAR ISSUES Time Seen by Provider: 10/20/19 14:52 Primary Care Provider: TYREL ELI NP, SERVER DEVELOPER [Primary Care Provider] - Follow up as needed Notes: HPI: 68-year-old male who is a poor historian presenting primarily for cough for 3 to 4 days with shortness of breath over the last 24 hours. No specific chest pain. Patient is an insulin-dependent diabetic cannot tell me whether he has had heart issues in the past. Patient has had some nausea vomiting today. Patient overall just states he does not feel well. PHYSICAL EXAMINATION: Patient appears mildly ill, poor historian, lung sounds are decreased in all bases. There is a dressing on the right foot. No abdominal pain on palpation MY NOTES 68 year old male arrives by POV with his with chief complaint of shortness of breath nausea vomiting diarrhea occasional cough and reports she has had this in his past but he cannot recall what the problem is. He reports his knows all about this and call her at [phone] phone number. Patient is otherwise a poor historian and medical records advise he has a right lower extremity wound that is chronic ulcer with hypokalemia and had similar symptoms in August 2018 with fever diarrhea. He also has a history of encephalopathy gout asthma obstructive sleep apnea C. difficile diarrhea hyperkalemia and CVA. Patient is also followed by wound clinic because of a toe skin lesion. Patient has a history of cellulitis of lower extremities. 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 TRAVEL OUTSIDE OF THE [place] IN LAST 30 DAYS: No - HPI Onset: Yesterday Onset/Duration: Sudden, Persistent, Worse Quality of pain: Achy Severity: Mild Pain Level: 1 Associated Symptoms: Abdominal pain, Body/muscle aches, Shortness of breath Exacerbated by: Movement Relieved by: Remaining still Similar symptoms previously: Yes Recently seen / treated by doctor: Yes - Related Data Allergies/Adverse Reactions: No Known Allergies Allergy (Verified 09/15/18 15:33) Past Medical History - General Information source: Patient - Social History Cigarette use (# per day): No Chew tobacco use (# tins/day): No Frequency of alcohol use: None Drug Abuse: None Lives with: Family Family history: Reviewed & Not Pertinent - Past Medical History Cardiac Medical History: Reports: Hx Coronary Artery Disease, Hx Heart Attack, Hx Hypercholesterolemia, Hx Hypertension Pulmonary Medical History: Reports: Hx Asthma - IN PAST, Hx Sleep Apnea - cpap did not help Denies: Hx Bronchitis, Hx COPD, Hx Pneumonia, Hx Tuberculosis Neurological Medical History: Reports: Hx Cerebrovascular Accident - R SIDE WEAKNESS. Denies: Hx Seizures Endocrine Medical History: Reports: Hx Diabetes Mellitus Type 2. Denies: Hx Diabetes Mellitus Type 1, Hx Hyperthyroidism, Hx Hypothyroidism Renal/ Medical History: Denies: Hx Peritoneal Dialysis GI Medical History: Reports: Hx Gastroesophageal Reflux Disease. Denies: Hx Cirrhosis, Hx Crohn's Disease, Hx Hepatitis, Hx Hiatal Hernia, Hx Ulcer, Hx Ulcerative Colitis Musculoskeltal Medical History: Reports Hx Arthritis - GENERALIZED, Denies Hx Fibromyalgia, Reports Hx Gout Skin Medical History: Reports Hx Cellulitis - Lower extremity cellulitis due to chronic edema, Denies Hx Eczema, Denies Hx Psoriasis Psychiatric Medical History: Denies: Hx Depression Traumatic Medical History: Reports: Hx Fractures - right gallegos Infectious Medical History: Reports: Hx C-Diff. Denies: Hx Hepatitis Past Surgical History: Reports: Hx Appendectomy, Hx Cardiac Catheterization, Hx Cholecystectomy, Hx Coronary Artery Bypass Graft - 5 vessels, Hx Coronary Stent, Hx Open Heart Surgery - STENT bypass. Denies: Hx Pacemaker - Immunizations Hx Diphtheria, Pertussis, Tetanus Vaccination: No Review of Systems - Review of Systems Constitutional: See HPI, Weakness EENT: No symptoms reported Cardiovascular: See HPI, Orthopnea, Dizziness, Lightheaded Respiratory: See HPI, Cough Gastrointestinal: See HPI, Nausea, Vomiting Genitourinary: No symptoms reported Male Genitourinary: No symptoms reported Musculoskeletal: No symptoms reported Skin: No symptoms reported Hematologic/Lymphatic: No symptoms reported Neurological/Psychological: See HPI, Weakness, Tremor - Of right hand non- parkinsonian Physical Exam - Vital signs Vitals: Temp Pulse Resp BP Pulse Ox 97.6 F 89 20 122/65 96 10/20/19 14:45 10/20/19 14:45 10/20/19 14:45 10/20/19 14:45 10/20/19 14:45 Interpretation: Normal - HEENT Head: Normocephalic, Atraumatic Eyes: Normal Pupils: PERRL Sinus: Normal Nasal: Normal Mouth/Lips: Normal Mucous membranes: Normal Pharynx: Normal Neck: Normal - Respiratory Respiratory status: No respiratory distress Chest status: Nontender Breath sounds: Normal Chest palpation: Normal - Cardiovascular Rhythm: Regular Heart sounds: Normal auscultation Murmur: No - Abdominal Inspection: Morbidly Obese Distension: No distension Bowel sounds: Hypoactive Tenderness: Nontender Organomegaly: No organomegaly - Rectal Prostate: Other - deferred - Genitourinary Scrotum: Other - deferred - Back Back: Normal - Extremities General upper extremity: Normal inspection, Other - with tremor of right hand non-parkinsonian General lower extremity: Normal inspection - Neurological Neuro grossly intact: Yes Cognition: Normal Orientation: AAOx4 Alex Coma Scale Eye Opening: Spontaneous Alex Coma Scale Verbal: Oriented Alex Coma Scale Motor: Obeys Commands [place] Coma Scale Total: 15 Speech: Normal Motor strength normal: LUE, RUE, LLE, RLE Sensory: Normal - Psychological Associated symptoms: Anxious - Skin Skin Temperature: Warm Skin Moisture: Dry Course - Vital Signs Vital signs: Temp Pulse Resp BP Pulse Ox 97.6 F 89 20 122/65 97 10/20/19 14:45 10/20/19 14:45 10/20/19 14:45 10/20/19 14:45 10/20/19 14:53 - Laboratory Result Diagrams: 10/20/19 18:48 10/20/19 18:48 Laboratory results interpreted by me: 10/20/19 10/20/19 10/20/19 18:48 18:48 18:48 Sodium 133.3 L BUN 67 H Creatinine 1.58 H Est GFR ( Amer) 53 L Est GFR (MDRD) Non-Af 44 L Glucose 313 H Lactic Acid 3.4 H Uric Acid Direct Bilirubin 0.6 H Ammonia Creatine Kinase 49 L NT-Pro-B Natriuret Pep 260 H Urine Glucose (UA) 10/20/19 10/20/19 10/20/19 18:48 18:48 19:30 Sodium BUN Creatinine Est GFR ( Amer) Est GFR (MDRD) Non-Af Glucose Lactic Acid Uric Acid 14.5 H Direct Bilirubin Ammonia < 8.7 L Creatine Kinase NT-Pro-B Natriuret Pep Urine Glucose (UA) >=500 H High uric acid is the suspected culprit in this patient. Will treat with colchicine and Decadron - Diagnostic Test Radiology reviewed: Reports reviewed - CT of head negative for anything acute CT of abdomen pelvis was positive for diverticular disease but no diverticulitis currently.. Chest x-ray KUB were negative. - EKG Interpretation by [place] EKG shows normal: Sinus rhythm Rate: Normal Rhythm: A.Fib - 80 ventricular beats per minute with atrial fibrillation and incomplete right bundle branch block on EKG. This was done at 1657 Doctor's Discharge - Discharge Clinical Impression: Hyperglycemia, Renal disease Gout attack Qualifiers: Gout site: unspecified site Gout etiology: unspecified cause Qualified Code(s): M10.9 - Gout, unspecified Condition: Good Disposition: HOME, SELF-CARE Additional Instructions: Follow-up with personal doctor this week return to ER as needed take medicines as directed encourage fluids; your glucose levels may go higher because of the Decadron steroid that was given to you for 1 day. Please try to control any sort of oral intake of any high calorie products to include sodas or cakes or cookies. Prescriptions: Colchicine 0.6 mg PO DAILY 7 Days #7 capsule Referrals: TYREL ELI SERVER DEVELOPER, SERVER DEVELOPER [NURSE PRACTITIONER] - Follow up as needed
[2019-10-20] MEDS ORDERED: ONDANSETRON HCL INJ/PF 4 MG/2 ML SDV IV ONE (17:00)
[2019-10-20] MEDS ORDERED: NORMAL SALINE 1000 ML 1,000 ML IV ONE ×2 (17:02→20:18)
--- NOTE | 2019-10-20 18:58 | EKG REPORT ---
SEVERITY:- DEFECTIVE ECG - INCOMPLETE RIGHT BUNDLE BRANCH BLOCK INFERIOR INFARCT, AGE INDETERMINATE SINUS RHYTHM BASELINE ARTIFACT : Confirmed by: Adali Winkler MD 20-Oct-2019 18:57:34
[2019-10-20 19:00] LABS: ABSOLUTE EOSINOPHILS # (AUTO) 0.2 10^3/uL (0.0-0.6); ABSOLUTE LYMPHOCYTES (AUTO) 3.5 10^3/uL (0.5-4.7); ABSOLUTE MONOCYTES (AUTO) 0.7 10^3/uL (0.1-1.4); ABSOLUTE NEUT (AUTO) 4.6 10^3/uL (1.7-8.2); BASOPHILS % (AUTO) 0.2 % (0-2); EOSINOPHILS % (AUTO) 2.5 % (0-6); HEMATOCRIT 44.3 % (37.9-51.0); HEMOGLOBIN 15.5 g/dL (13.5-17.0); LYMPHOCYTES % (AUTO) 38.7 % (13-45); MEAN CORPUSCULAR HEMOGLOBIN 31.1 pg (27.0-33.4); MEAN CORPUSCULAR VOLUME 89 fl (80-97); MONOCYTES % (AUTO) 8.2 % (3-13); PLATELET COUNT 255 10^3/uL (150-450); RED BLOOD COUNT 4.98 10^6/uL (4.35-5.55); RED CELL DISTRIBUTION WIDTH 13.1 % (11.5-14.0); SEGMENTED NEUTROPHILS % (AUTO) 50.4 % (42-78); TOTAL CELLS COUNTED % (AUTO) 100 %
[2019-10-20 19:06] LABS: INTERNATIONAL RATION (INR) 0.93; PROTHROMBIN TIME 12.7 SEC (11.4-15.4)
--- NOTE | 2019-10-20 19:11 | RADIOLOGY REPORT (SQ) ---
EXAM DESCRIPTION: KUB/ABDOMEN (SINGLE VIEW) IMAGES COMPLETED DATE/TIME: 10/20/2019 6:58 pm REASON FOR STUDY: abd pain COMPARISON: None. NUMBER OF VIEWS: One view. TECHNIQUE: Supine radiographic image of the abdomen acquired. LIMITATIONS: Entire abdomen not imaged. FINDINGS: BOWEL GAS PATTERN: Normal bowel gas pattern. No dilated loops. CALCIFICATIONS: No suspicious calcifications. SOFT TISSUES: No gross mass or suggestion of organomegaly. HARDWARE: None in the abdomen. BONES: No acute fracture. No worrisome bone lesions. OTHER: No other significant finding. IMPRESSION: NO RADIOGRAPHIC EVIDENCE FOR ACUTE ABDOMINAL DISEASE. TECHNICAL DOCUMENTATION: JOB ID: [id number] 2010 [employer]- All Rights Reserved Reading location - IP/workstation name: [email or web address]
[2019-10-20 19:21] LABS: ALBUMIN 3.5 g/dL (3.5-5.0); ALKALINE PHOSPHATASE 97 U/L (38-126); ANION GAP 11 (5-19); ASPARTATE AMINO TRANSFERASE 33 U/L (17-59); BILIRUBIN,DIRECT 0.6 mg/dL (0.0-0.4); BILIRUBIN,TOTAL 0.8 mg/dL (0.2-1.3); BLOOD UREA NITROGEN 67 mg/dL (7-20); CALCIUM 9.5 mg/dL (8.4-10.2); CARBON DIOXIDE 23 mmol/L (22-30); CHLORIDE 99 mmol/L (98-107); CREATINE KINASE 49 U/L (55-170); GLUCOSE 313 mg/dL (75-110); POTASSIUM 4.9 mmol/L (3.6-5.0); TOTAL PROTEIN 6.5 g/dL (6.3-8.2)
--- NOTE | 2019-10-20 19:36 | RADIOLOGY REPORT (SQ) ---
EXAM DESCRIPTION: CT HEAD WITHOUT IMAGES COMPLETED DATE/TIME: 10/20/2019 7:23 pm REASON FOR STUDY: ORELLANA COMPARISON: 09/30/2018. TECHNIQUE: Axial images acquired through the brain without intravenous contrast. Images reviewed wi th bone, brain and subdural windows. Additional sagittal and coronal reconstructions were generated. Images stored on PACS. All CT scanners at this facility use dose modulation, iterative reconstruction, and/or weight based d osing when appropriate to reduce radiation dose to as low as reasonably achievable (ALARA). [facility]: Dose Right [facility]: CareDose [facility]: Dose Right [facility]: Teradose 4D [facility]: Smart Actimo RADIATION DOSE: CT Rad equipment meets quality standard of care and radiation dose reduction techniq ues were employed. CTDIvol: 53.2 mGy. DLP: 991 mGy-cm.mGy. LIMITATIONS: None. FINDINGS: VENTRICLES: Prominent. CEREBRUM: No masses. No hemorrhage. No midline shift. Areas of low density in the white matter mos t likely due to chronic micro-vascular ischemic change. Old left occipital lobe infarct. No evidenc e for acute infarction. CEREBELLUM: No masses. No hemorrhage. No alteration of density. No evidence for acute infarction. EXTRAAXIAL SPACES: Age-related involutional change. No fluid collections. No masses. ORBITS AND GLOBE: No intra- or extraconal masses. Normal contour of globe without masses. CALVARIUM: No fracture. PARANASAL SINUSES: No fluid or mucosal thickening. SOFT TISSUES: No mass or hematoma. OTHER: No other significant finding. IMPRESSION: CHRONIC CHANGES OF ATROPHY AND MICROVASCULAR ISCHEMIA. OLD LEFT OCCIPITAL LOBE INFARCT. NO ACUTE PROCESS. EVIDENCE OF ACUTE STROKE: NO. TECHNICAL DOCUMENTATION: JOB ID: [id number] Quality ID # [id number]: Final reports with documentation of one or more dose reduction techniques (e.g., Au tomated exposure control, adjustment of the mA and/or kV according to patient size, use of iterative reconstruction technique) 2010 [employer]- All Rights Reserved Reading location - IP/workstation name: [email or web address]
[2019-10-20 19:39] LABS: NT PRO BNP 260 pg/mL (<125)
[2019-10-20] MEDS ORDERED: LORAZEPAM INJ 2 MG/1 ML VIAL IV ONE (19:43)
[2019-10-20] MEDS ORDERED: HYDROMORPHONE HCL INJ/PF 2 MG/ML AMPULE IV ONE (19:43)
[2019-10-20 19:45] LABS: TROPONIN I < 0.012 ng/mL
[2019-10-20 20:40] LABS: APPEARANCE,URINE CLEAR; BILIRUBIN,URINE NEGATIVE (NEGATIVE); COLOR,URINE YELLOW; GLUCOSE, URINE >=500 mg/dL (NEGATIVE); KETONES,URINE NEGATIVE (NEGATIVE); LEUKOCYTE ESTERASE,URINE NEGATIVE (NEGATIVE); NITRITE,URINE NEGATIVE (NEGATIVE); PROTEIN,URINE NEGATIVE (NEGATIVE); URINE SPECIFIC GRAVITY 1.015; UROBILINOGEN,URINE NEGATIVE mg/dL (<2.0)
--- NOTE | 2019-10-20 20:42 | RADIOLOGY REPORT (SQ) ---
CT ABDOMEN AND PELVIS WITHOUT INTRAVENOUS CONTRAST: 10/20/2019 7:37 PM CDT HISTORY: 68-year old with abdominal pain. COMPARISON: None available TECHNIQUE: Axial contiguous images were obtained from the lung bases to the proximal femurs without intravenous contrast administered. Sagittal and coronal reconstructions were also obtained and reviewed. This exam was performed according to our departmental dose-optimization program, which includes automated exposure control, adjustment of the mA and/or KV according to the patient's size and/or use of iterative reconstruction technique. FINDINGS: No focal consolidative airspace opacities are seen. No discrete pleural effusions are seen. Evaluation of the solid organs is limited by the lack of intravenous contrast. The visualized hepatic parenchyma is diffusely low in attenuation. The gallbladder is surgically absent. The spleen and pancreas are normal in contour. The bilateral adrenal glands appear unremarkable. Both kidneys demonstrate no evidence of hydronephrosis. No renal or ureteral calculi are seen. The urinary bladder is mildly distended, and appears grossly unremarkable. The stomach is not well distended. The small bowel loops appear unremarkable. No pericolonic inflammatory stranding is seen. There are multiple diverticula seen within the sigmoid and descending colon, without evidence to suggest diverticulitis. The appendix is not visualized, and may be surgically absent. There is subcutaneous soft tissue stranding seen along the left anterior abdominal wall. There is no evidence of pneumoperitoneum or free fluid. The aorta and IVC appear normal in size. There is some minimal atherosclerotic calcification of aorta. No significantly enlarged lymph nodes are seen in the abdomen or pelvis. Review of the bone show no evidence of any suspicious lytic or blastic lesions. IMPRESSION: No acute process is seen within the abdomen or pelvis.
[2019-10-21] MEDS ORDERED: COLCHICINE 0.6 MG TABLET PO ONE (00:03)
[2019-10-21] MEDS ORDERED: DEXAMETHASONE SOD PHOS INJ 10 MG/1 ML VIAL IV ONE (00:04)
[2019-10-21 00:37] VITALS: BP 138/89
== END 2019-10-21 00:36 | disposition home or self-care (01) ==
LOC: ER 14:29
DX: E11.65 Type 2 diabetes mellitus with hyperglycemia (principal); E11.622 Type 2 diabetes mellitus with other skin ulcer; L97.919 Non-pressure chronic ulcer of unspecified part of right lower leg with unspecified severity; M10.9 Gout, unspecified; N28.9 Disorder of kidney and ureter, unspecified; K57.30 Diverticulosis of large intestine without perforation or abscess without bleeding; J45.909 Unspecified asthma, uncomplicated; R06.02 Shortness of breath; R05 Cough; R11.2 Nausea with vomiting, unspecified; R19.7 Diarrhea, unspecified; I69.398 Other sequelae of cerebral infarction; R25.1 Tremor, unspecified; R10.9 Unspecified abdominal pain; E87.6 Hypokalemia; R42 Dizziness and giddiness; R53.1 Weakness; I48.91 Unspecified atrial fibrillation; I45.10 Unspecified right bundle-branch block; I25.10 Atherosclerotic heart disease of native coronary artery without angina pectoris; I10 Essential (primary) hypertension; I25.2 Old myocardial infarction; Z95.5 Presence of coronary angioplasty implant and graft; Z95.1 Presence of aortocoronary bypass graft
CPT/HCPCS: 93005; 99285; 96361; 96374; 96375; 36415; 87086; 82962; 82140; 82550; 83605; 84550; 85025; 85610; 80053; 81001; 84484; 83880; 71045; 74018; 70450; 74176; 93010; A9270; J1170; J2060; J2405; J7030; J1100

== ENCOUNTER 2019-10-22 12:30 | Emergency (ER) | payer MEDICARE, OTHER ==
[2019-10-22 14:59] LABS: APPEARANCE,URINE CLEAR; BILIRUBIN,URINE NEGATIVE (NEGATIVE); COLOR,URINE YELLOW; GLUCOSE, URINE >=500 mg/dL (NEGATIVE); KETONES,URINE TRACE mg/dL (NEGATIVE); PROTEIN,URINE NEGATIVE (NEGATIVE); URINE SPECIFIC GRAVITY 1.024; UROBILINOGEN,URINE NEGATIVE mg/dL (<2.0)
[2019-10-22 15:25] VITALS: BP 149/74
--- NOTE | 2019-10-22 15:59 | RADIOLOGY REPORT (SQ) ---
EXAM DESCRIPTION: CHEST SINGLE VIEW IMAGES COMPLETED DATE/TIME: 10/22/2019 3:29 pm REASON FOR STUDY: nausea, vomiting COMPARISON: 10/20/2019 EXAM PARAMETERS: NUMBER OF VIEWS: One view. TECHNIQUE: Single frontal radiographic view of the chest acquired. RADIATION DOSE: NA LIMITATIONS: None. FINDINGS: LUNGS AND PLEURA: Unchanged linear left mid lung opacities, likely scarring. No new airsp montrell disease, pleural effusion or pneumothorax. MEDIASTINUM AND HILAR STRUCTURES: No masses. Contour normal. HEART AND VASCULAR STRUCTURES: Heart normal in size. Vascular calcifications. BONES: No acute findings. HARDWARE: Sternotomy wires. OTHER: No other significant finding. IMPRESSION: NO ACUTE RADIOGRAPHIC FINDING IN THE CHEST. TECHNICAL DOCUMENTATION: JOB ID: [id number] 2010 [employer]- All Rights Reserved Reading location - IP/workstation name: [email or web address]
[2019-10-22] MEDS ORDERED: ONDANSETRON HCL INJ/PF 4 MG/2 ML SDV IV ONE (16:03)
[2019-10-22 16:17] LABS: ABSOLUTE EOSINOPHILS # (AUTO) 0.1 10^3/uL (0.0-0.6); ABSOLUTE LYMPHOCYTES (AUTO) 2.8 10^3/uL (0.5-4.7); ABSOLUTE MONOCYTES (AUTO) 0.4 10^3/uL (0.1-1.4); ABSOLUTE NEUT (AUTO) 3.7 10^3/uL (1.7-8.2); BASOPHILS % (AUTO) 0.1 % (0-2); EOSINOPHILS % (AUTO) 1.1 % (0-6); HEMATOCRIT 40.3 % (37.9-51.0); LYMPHOCYTES % (AUTO) 39.8 % (13-45); MEAN CORPUSCULAR HEMOGLOBIN 31.2 pg (27.0-33.4); MEAN CORPUSCULAR HGB CONC 34.7 g/dL (32.0-36.0); MEAN CORPUSCULAR VOLUME 90 fl (80-97); PLATELET COUNT 207 10^3/uL (150-450); RED BLOOD COUNT 4.49 10^6/uL (4.35-5.55); RED CELL DISTRIBUTION WIDTH 13.1 % (11.5-14.0); TOTAL CELLS COUNTED % (AUTO) 100 %; WHITE BLOOD COUNT 6.9 10^3/uL (4.0-10.5)
[2019-10-22] MEDS ORDERED: HYDROMORPHONE HCL INJ/PF 2 MG/ML AMPULE IV ONE (16:20)
[2019-10-22 16:28] LABS: ALKALINE PHOSPHATASE 92 U/L (38-126); ANION GAP 8 (5-19); ASPARTATE AMINO TRANSFERASE 45 U/L (17-59); BILIRUBIN,DIRECT 0.5 mg/dL (0.0-0.4); BILIRUBIN,TOTAL 0.6 mg/dL (0.2-1.3); BLOOD UREA NITROGEN 38 mg/dL (7-20); CALCIUM 8.9 mg/dL (8.4-10.2); CARBON DIOXIDE 23 mmol/L (22-30); CHLORIDE 104 mmol/L (98-107); CREATINE KINASE 62 U/L (55-170); GLUCOSE 358 mg/dL (75-110); POTASSIUM 4.2 mmol/L (3.6-5.0); TOTAL PROTEIN 5.8 g/dL (6.3-8.2)
[2019-10-22 16:44] LABS: CREATINE KINASE MB 2.11 ng/mL (<4.55)
[2019-10-22 16:47] LABS: TROPONIN I < 0.012 ng/mL
--- NOTE | 2019-10-22 16:59 | ER Document Report ---
ED General - General TRAVEL OUTSIDE OF THE [place] IN LAST 30 DAYS: No <THOMAS FLOWERS - Last Filed: 10/22/19 21:03> <[email or web address] - Last Filed: 10/22/19 23:17> - General Chief Complaint: Nausea/Vomiting/Diarrhea Stated Complaint: NAUSEA/VOMITING Time Seen by Provider: 10/22/19 14:43 Primary Care Provider: THOMAS PELAEZ MD [Primary Care Provider] - Follow up as needed Notes: 69 year old male presents to the ED complaining of nausea, vomiting and diarrhea since associated with diffuse abdominal cramping and chills. Denies any fevers or sweats. Denies blood in his stools. Only change is a new "pink pill" that he was started on 2 days ago after coming to the emergency department for his nausea vomiting and diarrhea. (THOMAS FLOWERS) - Related Data Allergies/Adverse Reactions: No Known Allergies Allergy (Verified 09/15/18 15:33) Past Medical History - General Information source: Patient - Social History Smoking Status: Unknown if Ever Smoked Frequency of alcohol use: None Drug Abuse: None Family History: CAD, DM, Hypertension - Past Medical History Cardiac Medical History: Reports: Hx Coronary Artery Disease, Hx Heart Attack, Hx Hypercholesterolemia, Hx Hypertension Pulmonary Medical History: Reports: Hx Asthma - IN PAST, Hx Sleep Apnea - cpap did not help Denies: Hx Bronchitis, Hx COPD, Hx Pneumonia, Hx Tuberculosis Neurological Medical History: Reports: Hx Cerebrovascular Accident - R SIDE WEAKNESS. Denies: Hx Seizures Endocrine Medical History: Reports: Hx Diabetes Mellitus Type 2. Denies: Hx Diabetes Mellitus Type 1, Hx Hyperthyroidism, Hx Hypothyroidism Renal/ Medical History: Denies: Hx Peritoneal Dialysis GI Medical History: Reports: Hx Gastroesophageal Reflux Disease. Denies: Hx Cirrhosis, Hx Crohn's Disease, Hx Hepatitis, Hx Hiatal Hernia, Hx Ulcer, Hx Ulcerative Colitis Musculoskeletal Medical History: Reports Hx Arthritis - GENERALIZED, Denies Hx Fibromyalgia, Reports Hx Gout Skin Medical History: Reports Hx Cellulitis - Lower extremity cellulitis due to chronic edema, Denies Hx Eczema, Denies Hx Psoriasis Psychiatric Medical History: Denies: Hx Depression Traumatic Medical History: Reports: Hx Fractures - right gallegos Infectious Medical History: Reports: Hx C-Diff. Denies: Hx Hepatitis Past Surgical History: Reports: Hx Appendectomy, Hx Cardiac Catheterization, Hx Cholecystectomy, Hx Coronary Artery Bypass Graft - 5 vessels, Hx Coronary Stent, Hx Open Heart Surgery - STENT bypass. Denies: Hx Pacemaker - Immunizations Hx Diphtheria, Pertussis, Tetanus Vaccination: No Hx Pneumococcal Vaccination: 12/22/16 <THOMAS FLOWERS - Last Filed: 10/22/19 21:03> Review of Systems - Review of Systems Constitutional: See HPI, Chills EENT: No symptoms reported Cardiovascular: No symptoms reported Respiratory: No symptoms reported Gastrointestinal: See HPI -: Yes All other systems reviewed and negative <THOMAS FLOWERS - Last Filed: 10/22/19 21:03> Physical Exam - Vital signs Interpretation: Hypertensive <THOMAS FLOWERS - Last Filed: 10/22/19 21:03> - Vital signs Vitals: Temp Pulse Resp BP Pulse Ox 97.6 F 78 16 149/74 H 100 10/22/19 15:24 10/22/19 15:24 10/22/19 15:24 10/22/19 15:24 10/22/19 15:24 - Notes Notes: GENERAL: Alert, interacts well. No acute distress. HEAD: Normocephalic, atraumatic EYES: Pupils equal, round and reactive to light, extraocular movements intact. ENT: Oral mucosa moist, tongue midline. NECK: Full range of motion, supple, trachea midline. LUNGS: Clear to auscultation bilaterally, no wheezes, rales or rhonchi, no respiratory distress. HEART: Regular rate and rhythm, no murmurs, gallops, rubs. ABDOMEN: Soft, nontender, nondistended, bowel sounds present in all 4 quadrants. EXTREMITIES: Moves all 4 extremities spontaneously, no edema, radial and dorsalis pedis pulses 2/4 bilaterally. No cyanosis. NEUROLOGICAL: Alert and oriented x3, normal speech. PSYCH: Normal mood, normal affect. SKIN: Warm, Dry, chronic cellulitis to the bilateral lower extremities, plantar aspect of right great toe has a punched-out appearing lesion with minimal surrounding erythema over the distal phalanx, no discharge, nontender to palpation. Consistent with diabetic foot ulcer. No discharge. (THOMAS FLOWERS) Course - Laboratory Result Diagrams: 10/22/19 15:55 10/22/19 15:55 <THOMAS FLOWERS - Last Filed: 10/22/19 21:03> - Laboratory Result Diagrams: 10/22/19 15:55 10/22/19 15:55 - Diagnostic Test Radiology reviewed: Reports reviewed <MISHA ABRAHAM - Last Filed: 10/22/19 23:17> - Re-evaluation Re-evalutation: 10/22/19 20:47 CBC unremarkable, CMP actually shows significantly improved blood work compared to 3 days ago, creatinine is completely normalized, BUN has come down significantly, glucose remains elevated at 358. 10/22/19 20:47 CT scan read is pending. Patient was able to tolerate the oral contrast without any difficulty. If the CT scan is normal then he will have to pass an oral challenge of clear liquids. If he can tolerate this then he will be discharged to home with antiemetics, antidiarrheals and follow-up instructions with his primary care physician. 10/22/19 20:51 Reviewing his most recent visit he was started on colchicine for gout. This explains why he is having continuing diarrhea. He did not have any diarrhea here. (THOMAS FLOWERS) 10/22/19 23:16 Care of this patient was turned over to ia here in the emergency department, pending results of his CT scan. Patient is feeling improved. He did pass a p.o. challenge. I went back in and evaluated his abdomen, it remained soft and nonsurgical. He did not have any further vomiting and diarrhea. He will be sent home with symptomatic medications as per Dr. velasco 6 prescriptions. He is amenable to this plan, and will follow-up closely with primary care. (MISHA ABRAHAM) - Vital Signs Vital signs: Temp Pulse Resp BP Pulse Ox 97.6 F 78 16 149/74 H 96 10/22/19 15:24 10/22/19 15:24 10/22/19 15:24 10/22/19 15:24 10/22/19 19:00 - Laboratory Laboratory results interpreted by me: 10/22/19 10/22/19 14:25 15:55 Sodium 134.7 L BUN 38 H Est GFR (MDRD) Non-Af 58 L Glucose 358 H Direct Bilirubin 0.5 H Total Protein 5.8 L Albumin 3.0 L Urine Glucose (UA) >=500 H Urine Ketones TRACE H - Diagnostic Test Radiology results interpreted by me: 10/22/19 23:16 Abdomen/Pelvis CT 10/22/19 00:00 IMPRESSION: 1. Improved basilar lung aeration. 2. Fatty infiltration of the liver. 3. No acute process in the abdomen or pelvis. Chest X-Ray 10/22/19 14:45 IMPRESSION: NO ACUTE RADIOGRAPHIC FINDING IN THE CHEST. (MISHA ABRAHAM) - EKG Interpretation by Me Additional EKG results interpreted by me: 10/22/19 20:50 EKG shows sinus rhythm at a rate of 71, occasional PACs, T wave inversions in lead III, left axis deviation, Q waves noted indicating old NE, T wave inversions noted in V2 and V3 as well, no ST segment elevations or depressions per my interpretation. (THOMAS FLOWERS) Discharge <THOMAS FLOWERS - Last Filed: 10/22/19 21:03> <MISHA ABRAHAM - Last Filed: 10/22/19 23:17> - Discharge Clinical Impression: Nausea vomiting and diarrhea, Type 2 diabetes mellitus with hyperglycemia, with long-term current use of insulin Condition: Stable Disposition: HOME, SELF-CARE Additional Instructions: Your CT scan did not show any signs of infection or blockage. You are taking colchicine for your gout, which causes diarrhea in order to get the uric acid out of your system. Your bloodwork has improved significantly since you were seen here on the . Please continue to drink plenty of water and avoid high sugar foods or drinks. I have prescribed Zofran that you may use for nausea and vomiting and you may use Imodium as prescribed on the box [id number] for your diarrhea. Please return for uncontrollable nausea or vomiting, blood in your vomit, blood in your stool, fevers or any new or concerning symptoms including worsening abdominal pain. Prescriptions: Ondansetron [Zofran Odt 4 mg Tablet] 1 - 2 tab PO Q4H PRN #15 tab.rapdis PRN Reason: For Nausea/Vomiting Referrals: THOMAS PELAEZ MD [Primary Care Provider] - Follow up as needed
--- NOTE | 2019-10-22 18:10 | EKG REPORT ---
SEVERITY:- ABNORMAL ECG - SINUS RHYTHM ATRIAL PREMATURE COMPLEX CONSIDER OLD TRUE POST MD NONSPECIFIC ST-T CHANGES- INFERIOR LEADS : Confirmed by: Sridhar Mclean MD 22-Oct-2019 18:09:49
[2019-10-22] MEDS ORDERED: RINGERS SOLUTION,LACTATED 1,000 ML IV ONE (20:46)
--- NOTE | 2019-10-22 22:28 | RADIOLOGY REPORT (SQ) ---
EXAM DESCRIPTION: Contrast-enhanced CT scan of the abdomen and pelvis. CLINICAL HISTORY: 69 years Male; N/V/D, abdominal pain TECHNIQUE: CT of the abdomen and pelvis with intravenous contrast.. Oral contrast was used. Delayed imaging was performed. All CT scans at this facility use dose modulation, iterative reconstruction, and/or weight based dosing when appropriate to reduce radiation dose to as low as reasonably achievable. This exam was performed according to our department optimization program which includes automated exposure control, adjustment of the mA and/or kv according to patient size and/or use of iterative reconstruction technique. COMPARISON: Unenhanced CT scan of the abdomen and pelvis 10/20/2019. FINDINGS: Lower chest: Lung aeration has improved. There is postoperative change of sternotomy. Sternal wires are seen. Coronary artery calcifications are present. Heart size is normal. Abdomen: Liver and biliary tree: Mild diffuse fatty infiltration of the liver is seen. Gallbladder surgically absent. Portal vein is patent. Hepatic veins are not seen. Pancreas: Normal Spleen:Within normal limits Kidneys: Kidneys are normal in size, shape and position. No stones. No mass or hydronephrosis. Symmetric renal enhancement. On delayed images there is symmetric contrast excretion from the kidneys. Adrenal glands:Within normal limits Vascular structures: Scattered vascular plaque in the aorta. No aneurysm. Mesenteric vessels are patent. Retroperitoneum: No mass or lymphadenopathy Abdominal wall: Mild edema is present in the anterior abdominal wall. This may be an injection sites. GI: Oral contrast is noted throughout the small bowel. The bowel is not dilated. Colon is unremarkable. Stomach is distended with oral contrast. No significant stool is seen in the colon. Appendix: Appendix is not seen. The tip of the cecum is normal. General: No free air. No free fluid Pelvis: Lymph nodes: No mass or lymphadenopathy Bladder: Unremarkable. Pelvis: No pelvic mass or adenopathy. Bones: There is degenerative change in the lumbar spine with vacuum disks. No acute or destructive bone process is seen. IMPRESSION: 1. Improved basilar lung aeration. 2. Fatty infiltration of the liver. 3. No acute process in the abdomen or pelvis.
== END 2019-10-22 23:34 | disposition home or self-care (01) ==
LOC: ER 12:30
DX: R11.2 Nausea with vomiting, unspecified (principal); R19.7 Diarrhea, unspecified; L03.116 Cellulitis of left lower limb; L03.115 Cellulitis of right lower limb; E11.65 Type 2 diabetes mellitus with hyperglycemia; K76.0 Fatty (change of) liver, not elsewhere classified; I49.1 Atrial premature depolarization; R10.84 Generalized abdominal pain; R68.83 Chills (without fever); I25.10 Atherosclerotic heart disease of native coronary artery without angina pectoris; I10 Essential (primary) hypertension; I25.2 Old myocardial infarction; J45.909 Unspecified asthma, uncomplicated; E11.9 Type 2 diabetes mellitus without complications; Z79.4 Long term (current) use of insulin; Z90.49 Acquired absence of other specified parts of digestive tract; Z95.5 Presence of coronary angioplasty implant and graft; Z95.1 Presence of aortocoronary bypass graft
CPT/HCPCS: 93005; 99285; 96361; 96374; 96375; 36415; 82553; 82550; 83690; 85025; 80053; 81001; 84484; 71045; 74177; 93010; J1170; J2405; J7120

== ENCOUNTER 2019-10-24 15:22 | Emergency (ER) | payer MEDICARE, OTHER ==
--- NOTE | 2019-10-24 16:46 | ER Document Report ---
ED General - General Chief Complaint: Vomiting Stated Complaint: VOMITING Time Seen by Provider: 10/24/19 15:59 Primary Care Provider: THOMAS PELAEZ MD [Primary Care Provider] - Follow up tomorrow (Call for outpatient follow-up appointment tomorrow.) Mode of Arrival: Wheelchair Information source: Patient Notes: 69-year-old male with past medical history significant for coronary artery disease, [place], hyperlipidemia, hypertension, sleep apnea as well as a CVA with right-sided weakness presents to the emergency room stating he was sent over by his primary care physician for blood work. Patient was seen on Tuesday as well as this past Tuesday for nausea or vomiting. States he is now able to tolerate p.o. fluids. Has not attempted to eat any solid food states his primary care physician wanted his blood work rechecked. Per charge nurse she received a call from the office stating that they did not like the way he looked that he was not tolerating anything p.o. and that they wanted blood work done. Patient does state that he is tolerating p.o. fluids without any difficulty. He just has not attempted to eat because he is worried he will vomit. He denies any pain, no diarrhea, no other concerns at this time. TRAVEL OUTSIDE OF THE [place] IN LAST 30 DAYS: No - Related Data Allergies/Adverse Reactions: No Known Allergies Allergy (Verified 10/24/19 16:13) Past Medical History - General Information source: Patient - Social History Smoking Status: Never Smoker Chew tobacco use (# tins/day): No Drug Abuse: None Family History: CAD, DM, Hypertension - Past Medical History Cardiac Medical History: Reports: Hx Coronary Artery Disease, Hx Heart Attack, Hx Hypercholesterolemia, Hx Hypertension Pulmonary Medical History: Reports: Hx Asthma - IN PAST, Hx Sleep Apnea - cpap did not help Denies: Hx Bronchitis, Hx COPD, Hx Pneumonia, Hx Tuberculosis Neurological Medical History: Reports: Hx Cerebrovascular Accident - R SIDE WEAKNESS. Denies: Hx Seizures Endocrine Medical History: Reports: Hx Diabetes Mellitus Type 2. Denies: Hx Diabetes Mellitus Type 1, Hx Hyperthyroidism, Hx Hypothyroidism Renal/ Medical History: Denies: Hx Peritoneal Dialysis GI Medical History: Reports: Hx Gastroesophageal Reflux Disease. Denies: Hx Cirrhosis, Hx Crohn's Disease, Hx Hepatitis, Hx Hiatal Hernia, Hx Ulcer, Hx Ulcerative Colitis Musculoskeletal Medical History: Reports Hx Arthritis - GENERALIZED, Denies Hx Fibromyalgia, Reports Hx Gout Skin Medical History: Reports Hx Cellulitis - Lower extremity cellulitis due to chronic edema, Denies Hx Eczema, Denies Hx Psoriasis Psychiatric Medical History: Denies: Hx Depression Traumatic Medical History: Reports: Hx Fractures - right gallegos Infectious Medical History: Reports: Hx C-Diff. Denies: Hx Hepatitis Past Surgical History: Reports: Hx Appendectomy, Hx Cardiac Catheterization, Hx Cholecystectomy, Hx Coronary Artery Bypass Graft - 5 vessels, Hx Coronary Stent, Hx Open Heart Surgery - STENT bypass. Denies: Hx Pacemaker - Immunizations Hx Diphtheria, Pertussis, Tetanus Vaccination: No Hx Pneumococcal Vaccination: 12/22/16 Review of Systems - Review of Systems Constitutional: No symptoms reported EENT: No symptoms reported Cardiovascular: No symptoms reported Respiratory: No symptoms reported Gastrointestinal: No symptoms reported Musculoskeletal: No symptoms reported Skin: No symptoms reported Neurological/Psychological: No symptoms reported -: Yes All other systems reviewed and negative Physical Exam - Vital signs Vitals: Temp Pulse Resp BP Pulse Ox 98.6 F 67 24 H 153/71 H 99 10/24/19 16:00 10/24/19 16:00 10/24/19 16:00 10/24/19 16:00 10/24/19 16:00 - Notes Notes: VITAL SIGNS: Within normal limits. GENERAL: Mild acute distress, non-toxic appearance. HEAD: Normal with no signs of head trauma. EYES: PERRLA, EOMI, conjunctiva normal, no discharge. EARS: Hearing grossly intact. NOSE: Normal. THROAT: Oropharynx is normal. NECK: Normal range of motion, no tenderness, supple, no lymphadenopathy, No adenopathy, no JVD. CHEST: Clear breath sounds bilaterally. No wheezes, rales, or rhonchi. CARDIAC: Regular rate and rhythm. S1 and S2, without murmurs, gallops, or rubs. VASCULAR: No Edema. Peripheral pulses normal and equal in all extremities. ABDOMEN: Normal and soft with no tenderness, no masses or pulsatile masses. No organomegaly. Positive bowel sounds x4. No CVA tenderness noted bilaterally. GASTROINTESTINAL: Bowel sounds normal GENITOURINARY: Normal, No tenderness LYMPATHTIC: No lymphadenopathy noted. MUSCULOSKELETAL: Good range of motion of all major joints. Extremities without clubbing, cyanosis or edema. NEUROLOGICAL: Alert and oriented x 3. Speech normal. Follows commands appropriately. PSYCHIATRIC: Normal Affect, judgement and mood. SKIN: Normal appearance with no rashes or lesions. Course - Re-evaluation Re-evalutation: 10/24/19 20:27 Patient is resting comfortably he is afebrile. He is nontoxic-appearing, he is able to tolerate p.o. fluids without difficulty. All lab results were reviewed with patient. He was counseled to follow-up outpatient with his primary care physician for recheck tomorrow. Patient was given strict return to the emergency room guidelines. Return for any new or worsening symptoms. All questions were answered. Patient verbalized understanding and agrees with plan of care. - Vital Signs Vital signs: Temp Pulse Resp BP Pulse Ox 98.3 F 72 20 159/73 H 93 10/24/19 21:27 10/24/19 21:27 10/24/19 21:27 10/24/19 21:27 10/24/19 21:27 - Laboratory Result Diagrams: 10/24/19 19:07 10/24/19 19:07 Laboratory results interpreted by me: 10/24/19 10/24/19 17:00 19:07 Sodium 131.7 L Carbon Dioxide 21 L BUN 21 H Est GFR (MDRD) Non-Af 58 L Glucose 301 H Total Protein 5.5 L Albumin 2.9 L Urine Glucose (UA) >=500 H Urine Ketones 20 H Discharge - Discharge Clinical Impression: Weakness Condition: Stable Disposition: HOME, SELF-CARE Instructions: Weakness ([facility]) Additional Instructions: Encourage fluids. Reagan diet. Recheck with primary care physician tomorrow. Return to the emergency room for any new or worsening symptoms. Referrals: THOMAS PELAEZ MD [Primary Care Provider] - Follow up tomorrow (Call for outpatient follow-up appointment tomorrow.)
[2019-10-24 18:01] LABS: APPEARANCE,URINE CLEAR; BILIRUBIN,URINE NEGATIVE (NEGATIVE); COLOR,URINE YELLOW; GLUCOSE, URINE >=500 mg/dL (NEGATIVE); KETONES,URINE 20 mg/dL (NEGATIVE); LEUKOCYTE ESTERASE,URINE NEGATIVE (NEGATIVE); NITRITE,URINE NEGATIVE (NEGATIVE); PROTEIN,URINE NEGATIVE (NEGATIVE); URINE SPECIFIC GRAVITY 1.027; UROBILINOGEN,URINE NEGATIVE mg/dL (<2.0)
[2019-10-24 19:16] LABS: ABSOLUTE EOSINOPHILS # (AUTO) 0.1 10^3/uL (0.0-0.6); ABSOLUTE LYMPHOCYTES (AUTO) 2.7 10^3/uL (0.5-4.7); ABSOLUTE MONOCYTES (AUTO) 0.5 10^3/uL (0.1-1.4); ABSOLUTE NEUT (AUTO) 4.8 10^3/uL (1.7-8.2); EOSINOPHILS % (AUTO) 1.4 % (0-6); HEMATOCRIT 40.3 % (37.9-51.0); HEMOGLOBIN 14.1 g/dL (13.5-17.0); LYMPHOCYTES % (AUTO) 33.2 % (13-45); MEAN CORPUSCULAR HEMOGLOBIN 31.3 pg (27.0-33.4); MEAN CORPUSCULAR HGB CONC 34.9 g/dL (32.0-36.0); MEAN CORPUSCULAR VOLUME 90 fl (80-97); MONOCYTES % (AUTO) 6.1 % (3-13); PLATELET COUNT 188 10^3/uL (150-450); RED CELL DISTRIBUTION WIDTH 13.1 % (11.5-14.0); SEGMENTED NEUTROPHILS % (AUTO) 59.3 % (42-78); TOTAL CELLS COUNTED % (AUTO) 100 %; WHITE BLOOD COUNT 8.2 10^3/uL (4.0-10.5)
[2019-10-24 19:29] LABS: ALBUMIN 2.9 g/dL (3.5-5.0); ALKALINE PHOSPHATASE 93 U/L (38-126); ANION GAP 10 (5-19); ASPARTATE AMINO TRANSFERASE 58 U/L (17-59); BILIRUBIN,DIRECT 0.4 mg/dL (0.0-0.4); BILIRUBIN,TOTAL 0.8 mg/dL (0.2-1.3); BLOOD UREA NITROGEN 21 mg/dL (7-20); CALCIUM 8.6 mg/dL (8.4-10.2); CARBON DIOXIDE 21 mmol/L (22-30); CHLORIDE 101 mmol/L (98-107); GLUCOSE 301 mg/dL (75-110); POTASSIUM 3.9 mmol/L (3.6-5.0); TOTAL PROTEIN 5.5 g/dL (6.3-8.2)
[2019-10-24] MEDS ORDERED: RINGERS SOLUTION,LACTATED 1,000 ML IV ONE (19:39)
[2019-10-24 21:28] VITALS: BP 159/73
== END 2019-10-24 21:20 | disposition home or self-care (01) ==
LOC: ER 15:22
DX: R53.1 Weakness (principal); R11.10 Vomiting, unspecified; I25.10 Atherosclerotic heart disease of native coronary artery without angina pectoris; E78.00 Pure hypercholesterolemia, unspecified; I10 Essential (primary) hypertension; I25.2 Old myocardial infarction; I69.351 Hemiplegia and hemiparesis following cerebral infarction affecting right dominant side
CPT/HCPCS: 99284; 96360; 36415; 85025; 80053; 81001; J7120

== ENCOUNTER 2019-11-02 07:39 | Day surgery (SDC) | payer MEDICARE, OTHER ==
[2019-11-02 10:40] LABS: INTERNATIONAL RATION (INR) 0.92; PARTIAL THROMBOPLASTIN TIME 26.8 SEC (23.5-35.8); PROTHROMBIN TIME 12.6 SEC (11.4-15.4)
[2019-11-02 10:57] LABS: ANION GAP 10 (5-19); BLOOD UREA NITROGEN 16 mg/dL (7-20); CARBON DIOXIDE 26 mmol/L (22-30); CHLORIDE 97 mmol/L (98-107); GLUCOSE 306 mg/dL (75-110)
--- NOTE | 2019-11-02 11:57 | Operative Report ---
Operative Report DATE OF SURGERY: 11/02/19 Operative Report: The risk, benefits and alternatives of the procedure including the risk of bleeding, perforation requiring surgery have been explained to the patient in detail and informed consent has been obtained. Patient's procedure has to be done in the operating room. Patient is taken to the operating room and placed in a left, lateral decubital position. Timeout was called. Propofol medication is administered. Rectal examination is done which did not reveal any masses, tears or fissures. An Olympus videoscope was introduced into the patient's rectum. Scope was then carefully advanced all the way to the cecum. Cecum was identified by the usual anatomical landmarks including the ileocecal valve as well as the appendiceal office. Photodocumentation is obtained. Scope was then sequentially pulled back via the various segments of the colon including the ascending colon, hepatic flexure, transverse colon, splenic flexure, descending colon finding to the rectosigmoid portions of the colon. Retroflexion maneuvers performed. The risks benefits and alternatives of the procedure explained to the patient in detail and informed consent is obtained.A GIF Olympus video scope was inserted into the patient's mouth and hypopharynx, the esophagus is identified intubated and insufflated, the scope was then advanced through the esophagus stomach and duodenum, retroflexion maneuver is done, the esophagus stomach and first and second portions of the duodenum examined PREOPERATIVE DIAGNOSIS: Change of bowel habits. Family history of colorectal cancer. Nausea vomiting POSTOPERATIVE DIAGNOSIS: Internal hemorrhoids. Diverticulosis. Right side colon inflammation status post biopsy. Cecum was reached. Gastritis status post biopsy. Duodenal ulcer OPERATION: Colonoscopy with biopsy. EGD with biopsy SURGEON: CESAR MEDINA ANESTHESIA: LMAC TISSUE REMOVED OR ALTERED: As noted above. COMPLICATIONS: None. ESTIMATED BLOOD LOSS: None. INTRAOPERATIVE FINDINGS: As noted above.
[2019-11-02] MEDS ORDERED: ONDANSETRON HCL INJ/PF 4 MG/2 ML SDV IV PRN (12:00)
[2019-11-02] MEDS ORDERED: FENTANYL CITRATE INJ/PF 100 MCG/2 ML AMPUL IV PRN (12:00)
[2019-11-02] MEDS ORDERED: MEPERIDINE HCL/PF INJ 25 MG/1 ML DISP.SYRIN IV PRN (12:00)
[2019-11-02] MEDS ORDERED: DIPHENHYDRAMINE HCL 50 MG/ML VIAL IV PRN (12:00)
[2019-11-02] MEDS ORDERED: DEXTROSE 5%-1/2 NORMAL SALINE 1,000 ML IV PRN (12:15)
[2019-11-02] MEDS ORDERED: SIMETHICONE 80 MG TAB.CHEW PO PRN (12:16)
[2019-11-02] MEDS ORDERED: ACETAMINOPHEN 325 MG TABLET PO PRN (12:16)
[2019-11-02] MEDS ORDERED: PROMETHAZINE HCL INJ 25 MG/1 ML VIAL IV PRN (12:17)
[2019-11-02 12:58] VITALS: BP 128/64
== END 2019-11-02 12:50 | disposition home or self-care (01) ==
LOC: END 07:39
PROVIDERS: ATTEND Internal Medicine Gastroenterology
DX: K29.50 Unspecified chronic gastritis without bleeding (principal); K29.80 Duodenitis without bleeding; K20.9 Esophagitis, unspecified; K57.90 Diverticulosis of intestine, part unspecified, without perforation or abscess without bleeding; K64.8 Other hemorrhoids; K26.9 Duodenal ulcer, unspecified as acute or chronic, without hemorrhage or perforation; R11.2 Nausea with vomiting, unspecified; I25.10 Atherosclerotic heart disease of native coronary artery without angina pectoris; Z95.1 Presence of aortocoronary bypass graft; I10 Essential (primary) hypertension; E11.9 Type 2 diabetes mellitus without complications; J45.909 Unspecified asthma, uncomplicated; Z80.0 Family history of malignant neoplasm of digestive organs; M13.80 Other specified arthritis, unspecified site; G47.33 Obstructive sleep apnea (adult) (pediatric); M10.9 Gout, unspecified; E66.01 Morbid (severe) obesity due to excess calories; M62.81 Muscle weakness (generalized); Z86.73 Personal history of transient ischemic attack (TIA), and cerebral infarction without residual deficits; Z79.84 Long term (current) use of oral hypoglycemic drugs; Z79.899 Other long term (current) drug therapy; Z79.4 Long term (current) use of insulin; Z79.82 Long term (current) use of aspirin; Z03.818 Encounter for observation for suspected exposure to other biological agents ruled out
CPT/HCPCS: 43239; 45380; 36415; 82962; 85610; 85730; 80048; 88305 ×2; U0003; J2704; C9803; 813; 87635; 88342

== ENCOUNTER → 2019-12-06 | Outpatient (CLI) | payer MEDICARE, OTHER ==
--- NOTE | 2019-12-06 15:20 | RADIOLOGY REPORT (SQ) ---
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 NUMBER OF VIEWS: Three views. TECHNIQUE: AP, lateral and oblique radiographic images acquired of the right foot. LIMITATIONS: None. FINDINGS: MINERALIZATION: Normal. BONES: No acute fracture or dislocation. Calcaneal spurs. No evidence of osteomyelitis. JOINTS: No effusions. SOFT TISSUES: No soft tissue swelling. No foreign body. OTHER: No other significant finding. IMPRESSION: Calcaneal spurs. No evidence of osteomyelitis. TECHNICAL DOCUMENTATION: JOB ID: [id number] 2010 [employer]- All Rights Reserved Reading location - IP/workstation name: [email or web address]
== END ==
LOC: WC 14:37
PROVIDERS: ATTEND Preventive Medicine Undersea and Hyperbaric Medicine
DX: E11.621 Type 2 diabetes mellitus with foot ulcer (principal); L97.512 Non-pressure chronic ulcer of other part of right foot with fat layer exposed

== ENCOUNTER 2019-12-13 14:47 | Observation (INO) | payer MEDICARE, OTHER ==
--- NOTE | 2019-12-13 16:33 | ER Document Report ---
ED GI/ - General Chief Complaint: Nausea/Vomiting/Diarrhea Stated Complaint: ABDOMINAL PAIN,VOMITING,DIARRHEA Time Seen by Provider: 12/13/19 15:04 Mode of Arrival: Ambulatory Information source: Patient Notes: 69-year-old male with past medical history significant for coronary heart disease, [place], hyperlipidemia, hypertension, CVA with right-sided weakness presents to the emergency room complaining of decreased appetite. Diarrhea for 2 weeks denies any fevers, denies any urinary symptoms. Denies any known COVID- 19 exposure. Does complain of generalized abdominal cramping along with g eneralized fatigue and weakness. States has been taking some [id number] diarrhea medications without relief. States he had an upper and lower endoscopies done within the past month with Dr. Aldridge. States he was diagnosed with an ulcer but does not remember what medication they put him on for his ulcer. States he is unable to quantify the amount of diarrhea that he is having daily. Patient is a very poor historian about his current health status. TRAVEL OUTSIDE OF THE [place] IN LAST 30 DAYS: No - Related Data Allergies/Adverse Reactions: No Known Allergies Allergy (Verified 12/13/19 15:12) Past Medical History - General Information source: Patient - Social History Smoking Status: Never Smoker Chew tobacco use (# tins/day): No Frequency of alcohol use: None Drug Abuse: None Family History: CAD, DM, Hypertension Patient has homicidal ideation: No - Past Medical History Cardiac Medical History: Reports: Hx Coronary Artery Disease, Hx Heart Attack, Hx Hypercholesterolemia, Hx Hypertension Pulmonary Medical History: Reports: Hx Asthma - HX, Hx Sleep Apnea - cpap did not help Denies: Hx Bronchitis, Hx COPD, Hx Pneumonia, Hx Tuberculosis Neurological Medical History: Reports: Hx Cerebrovascular Accident - R SIDE WEAKNESS. Denies: Hx Seizures Endocrine Medical History: Reports: Hx Diabetes Mellitus Type 2. Denies: Hx Diabetes Mellitus Type 1, Hx Hyperthyroidism, Hx Hypothyroidism Renal/ Medical History: Denies: Hx Peritoneal Dialysis GI Medical History: Reports: Hx Gastroesophageal Reflux Disease. Denies: Hx Cirrhosis, Hx Crohn's Disease, Hx Hepatitis, Hx Hiatal Hernia, Hx Ulcer, Hx Ulcerative Colitis Musculoskeletal Medical History: Reports Hx Arthritis - GENERALIZED, Denies Hx Fibromyalgia, Reports Hx Gout Skin Medical History: Reports Hx Cellulitis - Lower extremity cellulitis due to chronic edema, Denies Hx Eczema, Denies Hx Psoriasis Psychiatric Medical History: Denies: Hx Depression Traumatic Medical History: Reports: Hx Fractures - right gallegos Infectious Medical History: Reports: Hx C-Diff. Denies: Hx Hepatitis Past Surgical History: Reports: Hx Appendectomy, Hx Cardiac Catheterization, Hx Cholecystectomy, Hx Coronary Artery Bypass Graft - 5 vessels, Hx Coronary Stent, Hx Open Heart Surgery - STENT bypass. Denies: Hx Pacemaker - Immunizations Hx Diphtheria, Pertussis, Tetanus Vaccination: No Hx Pneumococcal Vaccination: 12/22/16 Review of Systems - Review of Systems Constitutional: Malaise, Weakness EENT: No symptoms reported Cardiovascular: No symptoms reported Respiratory: No symptoms reported Gastrointestinal: Abdominal pain, Diarrhea. denies: Nausea, Vomiting Genitourinary: No symptoms reported Musculoskeletal: No symptoms reported Skin: No symptoms reported Neurological/Psychological: Weakness -: Yes All other systems reviewed and negative Physical Exam - Vital signs Vitals: Temp Pulse Resp BP Pulse Ox 97.6 F 94 20 96/46 L 97 12/13/19 15:02 12/13/19 15:02 12/13/19 15:02 12/13/19 15:02 12/13/19 15:02 - General General appearance: Appears well, Alert In distress: Mild - Respiratory Respiratory status: No respiratory distress Chest status: Nontender Breath sounds: Normal Chest palpation: Normal - Cardiovascular Rhythm: Regular Heart sounds: Normal auscultation Murmur: No - Abdominal Inspection: Normal Distension: No distension Bowel sounds: Normal Tenderness: Nontender Organomegaly: No organomegaly - Neurological Neuro grossly intact: Yes Orientation: AAOx4 [place] Coma Scale Eye Opening: Spontaneous Alex Coma Scale Verbal: Oriented Alex Coma Scale Motor: Obeys Commands Alex Coma Scale Total: 15 Speech: Normal - Skin Skin Temperature: Warm Skin Moisture: Dry Skin Color: Normal Course - Re-evaluation Re-evalutation: 12/13/19 16:32 Patient is a poor historian, complains of generalized weakness with multiple other complaints. Will check labs and reevaluate. I have taken care of this pa tient in the past he has been more alert and oriented on previous visit than he is today. Hypotensive. Will give IV fluids and reevaluate. 12/13/19 19:57 Reviewed lab findings with patient. He is more alert at this time. Counseled on the need for admission. Patient is agreeable to admission. Pending hospitalist orders - Vital Signs Vital signs: Temp Pulse Resp BP Pulse Ox 97.7 F 71 11 L 136/70 H 100 12/14/19 10:00 12/14/19 08:42 12/14/19 07:39 12/14/19 07:39 12/14/19 07:39 - Laboratory Result Diagrams: 12/14/19 08:10 12/13/19 22:15 Laboratory results interpreted by me: 12/13/19 12/13/19 12/13/19 05:48 16:30 16:30 WBC 11.3 H Sodium 130.1 L Potassium 5.1 H Carbon Dioxide 21 L BUN 62 H Creatinine 1.80 H Est GFR ( Amer) 45 L Est GFR (MDRD) Non-Af 38 L Glucose 309 H Direct Bilirubin 0.5 H AST 67 H Alkaline Phosphatase 129 H Total Protein 5.7 L Albumin 2.9 L Urine Glucose (UA) Urine Ketones Urine Sodium 19 L 12/13/19 19:05 WBC Sodium Potassium Carbon Dioxide BUN Creatinine Est GFR ( Amer) Est GFR (MDRD) Non-Af Glucose Direct Bilirubin AST Alkaline Phosphatase Total Protein Albumin Urine Glucose (UA) >=500 H Urine Ketones TRACE H Urine Sodium - Diagnostic Test Radiology reviewed: Reports reviewed - EKG Interpretation by Me EKG shows normal: Sinus rhythm Additional EKG results interpreted by me: 12/13/19 19:10 EKG was interpreted by ER physician Dr. Ruiz No acute STEMI Sinus rhythm Rate 89 Incomplete right bundle branch block Right bundle branch block is new when compared to previous EKG of 10/22/2019 - Consults Dr. Marshall Reason for consultation: 12/13/19 19:44 admission for acute kidney injury, generalized fatigue. Reviewed labs, EKG, chest x-ray, aware urinalysis is still pending. Will see patient in the emergency room. 12/13/19 20:04 Consulted provider: will come to ER Discharge - Discharge Clinical Impression: Acute kidney injury, Hyperkalemia, Weakness Condition: Stable Disposition: ADMITTED OBSERVATION Admitting Provider: Constance Marshall Unit Admitted: Telemetry
[2019-12-13 16:49] LABS: ABSOLUTE EOSINOPHILS # (AUTO) 0.2 10^3/uL (0.0-0.6); ABSOLUTE LYMPHOCYTES (AUTO) 3.5 10^3/uL (0.5-4.7); ABSOLUTE NEUT (AUTO) 6.6 10^3/uL (1.7-8.2); BASOPHILS % (AUTO) 0.1 % (0-2); EOSINOPHILS % (AUTO) 1.5 % (0-6); HEMATOCRIT 41.6 % (37.9-51.0); HEMOGLOBIN 14.6 g/dL (13.5-17.0); LYMPHOCYTES % (AUTO) 31.2 % (13-45); MEAN CORPUSCULAR HEMOGLOBIN 31.4 pg (27.0-33.4); MEAN CORPUSCULAR HGB CONC 35.1 g/dL (32.0-36.0); MEAN CORPUSCULAR VOLUME 90 fl (80-97); MONOCYTES % (AUTO) 8.9 % (3-13); PLATELET COUNT 160 10^3/uL (150-450); RED BLOOD COUNT 4.65 10^6/uL (4.35-5.55); RED CELL DISTRIBUTION WIDTH 13.4 % (11.5-14.0); SEGMENTED NEUTROPHILS % (AUTO) 58.3 % (42-78); TOTAL CELLS COUNTED % (AUTO) 100 %; WHITE BLOOD COUNT 11.3 10^3/uL (4.0-10.5)
[2019-12-13 17:14] LABS: ALBUMIN 2.9 g/dL (3.5-5.0); ALKALINE PHOSPHATASE 129 U/L (38-126); ANION GAP 10 (5-19); ASPARTATE AMINO TRANSFERASE 67 U/L (17-59); BILIRUBIN,DIRECT 0.5 mg/dL (0.0-0.4); BILIRUBIN,TOTAL 1.2 mg/dL (0.2-1.3); BLOOD UREA NITROGEN 62 mg/dL (7-20); CALCIUM 8.9 mg/dL (8.4-10.2); CARBON DIOXIDE 21 mmol/L (22-30); CHLORIDE 99 mmol/L (98-107); GLUCOSE 309 mg/dL (75-110); POTASSIUM 5.1 mmol/L (3.6-5.0); TOTAL PROTEIN 5.7 g/dL (6.3-8.2)
[2019-12-13] MEDS ORDERED: RINGERS SOLUTION,LACTATED 1,000 ML IV ONE (17:29)
--- NOTE | 2019-12-13 17:54 | EKG REPORT ---
SEVERITY:- ABNORMAL ECG - SINUS RHYTHM INCOMPLETE RIGHT BUNDLE BRANCH BLOCK PROBABLE INFERIOR INFARCT, AGE INDETERMINATE : Confirmed by: Josh Snow MD 13-Dec-2019 17:54:13
--- NOTE | 2019-12-13 19:17 | RADIOLOGY REPORT (SQ) ---
EXAM DESCRIPTION: CHEST SINGLE VIEW IMAGES COMPLETED DATE/TIME: 12/13/2019 6:58 pm REASON FOR STUDY: fatigue COMPARISON: 10/22/2019 EXAM PARAMETERS: NUMBER OF VIEWS: One view. TECHNIQUE: Single frontal radiographic view of the chest acquired. RADIATION DOSE: NA LIMITATIONS: None. FINDINGS: LUNGS AND PLEURA: No opacities, masses or pneumothorax. No pleural effusion. MEDIASTINUM AND HILAR STRUCTURES: No masses. Contour normal. HEART AND VASCULAR STRUCTURES: Heart normal in size. Normal vasculature. BONES: No acute findings. HARDWARE: Sternal wires. OTHER: No other significant finding. IMPRESSION: NO ACUTE RADIOGRAPHIC FINDING IN THE CHEST. TECHNICAL DOCUMENTATION: JOB ID: [id number] 2010 [employer]- All Rights Reserved Reading location - IP/workstation name: [email or web address]
[2019-12-13 19:40] LABS: APPEARANCE,URINE CLEAR; BILIRUBIN,URINE NEGATIVE (NEGATIVE); COLOR,URINE YELLOW; GLUCOSE, URINE >=500 mg/dL (NEGATIVE); KETONES,URINE TRACE mg/dL (NEGATIVE); LEUKOCYTE ESTERASE,URINE NEGATIVE (NEGATIVE); NITRITE,URINE NEGATIVE (NEGATIVE); PROTEIN,URINE NEGATIVE (NEGATIVE); URINE SPECIFIC GRAVITY 1.015; UROBILINOGEN,URINE NEGATIVE mg/dL (<2.0)
[2019-12-13] MEDS ORDERED: ONDANSETRON HCL INJ/PF 4 MG/2 ML SDV IV PRN (21:17)
[2019-12-13] MEDS ORDERED: NORMAL SALINE 1000 ML 1,000 ML IV PRN (21:17)
[2019-12-13] MEDS ORDERED: ACETAMINOPHEN 325 MG TABLET PO PRN (21:17)
[2019-12-13] MEDS ORDERED: FAMOTIDINE 20 MG TABLET PO SCH (22:00)
--- NOTE | 2019-12-13 22:06 | PDOC H&P ---
History of Present Illness Admission Date/PCP: THOMAS PELAEZ MD 12/13/2019 Patient complains of: generalized weakness, diarrhea, vomiring History of Present Illness: RUSSELL PARRA is a 69 year old male with a history of CAD, hyperlipidemia, CVA with residual right-sided weakness, type 2 diabetes who now presents with generalized fatigue, weakness, with associated loss of appetite. Patient states that he has been having watery diarrhea for the past 2 weeks but is unable to give detailed description. He tried [id number] medication for diarrhea but did not help. He also reports mild epigastric discomfort. Denies any history of melena, hematochezia or hematemesis. He has not upper and lower GI endoscopy done 1 month ago and was told that he has ulcer. He denies any fever, chills, cough, shortness of breath, palpitation, orthopnea or PND. He denies any recent sick contact history. Past Medical History Cardiac Medical History: Reports: Coronary Artery Disease, Myocardial Infarction, Hyperlipidema, Hypertension Pulmonary Medical History: Reports: Asthma - HX, Sleep Apnea - cpap did not help Denies: Bronchitis, Chronic Obstructive Pulmonary Disease (COPD), Pneumonia, Tuberculosis Neurological Medical History: Denies: Seizures Endocrine Medical History: Reports: Diabetes Mellitus Type 2 Denies: Diabetes Mellitus Type 1, Hyperthyroidism, Hypothyroidism GI Medical History: Reports: Gastroesophageal Reflux Disease Denies: Cirrhosis, Crohn's Disease, Hepatitis, Hiatal Hernia, Ulcerative Colitis Musculoskeltal Medical History: Reports: Arthritis - GENERALIZED, Gout Denies: Fibromyalgia Skin Medical History: Denies: Eczema, Psoriasis Psychiatric Medical History: Denies: Depression Hematology: Denies: Anemia, Sickle Cell Disease, Bleeding Tendencies Infectious Medical History: Reports: Clostridium Difficile Past Surgical History Past Surgical History: Reports: Appendectomy, Cardiac Catheterization, Cholecyst ectomy, Coronary Artery Bypass Graft - 5 vessels, Coronary Stent Denies: Pacemaker Social History Information Source: Patient Lives with: Family Smoking Status: Never Smoker Electronic Cigarette use?: No Frequency of Alcohol Use: None Hx Recreational Drug Use: No Drugs: None Hx Prescription Drug Abuse: No - Advance Directive Resuscitation Status: Full Code Family History Family History: CAD, DM, Hypertension Parental Family History Reviewed: Yes Children Family History Reviewed: Yes Sibling(s) Family History Reviewed.: Yes Medication/Allergy Home Medications: Clopidogrel Bisulfate [Plavix 75 mg Tablet] 75 mg PO DAILY 08/31/18 Colchicine [Colchicine 0.6 mg Tablet] 0.6 mg PO DAILY 08/31/18 Gabapentin [Neurontin 300 mg Capsule] 300 mg PO Q8 08/31/18 Insulin Aspart [Novolog Flexpen] 30 unit SQ AC 08/31/18 Metoprolol Succinate [Toprol XL 100 mg Tablet] 100 mg PO DAILY 08/31/18 Aspirin [Ecotrin 81 mg EC Tablet] 81 mg PO DAILY #30 tabec 09/06/18 Atorvastatin Calcium [Lipitor 40 mg Tablet] 40 mg PO QHS #30 tablet 09/06/18 Furosemide [Lasix 20 mg Tablet] 20 mg PO QAM #30 tablet 09/06/18 Lisinopril [Prinivil 10 mg Tablet] 20 mg PO DAILY #30 tablet 09/06/18 Potassium Chloride [Klor-Con 10 Meq Tablet ER] 10 meq PO DAILY #5 capsule.er 09/06/18 Carbamazepine [Tegretol 200 mg Tablet] 200 mg PO BID 09/16/18 Insulin Lispro [Humalog Insulin (Lispro) 100 unit/mL] 0 unit SUBCUT .SLD SCALE 09/26/18 Metformin HCl [Glucophage 500 mg Tablet] 500 mg PO QPM 09/26/18 Acetaminophen [Tylenol 325 mg Tablet] 650 mg PO Q4HP PRN tablet 10/06/18 Ferrous Sulfate [Feosol 325 mg Tablet] 325 mg PO BIDPCBS #60 tablet 10/06/18 Multivitamin [Tab-A-Kevin (Multiple Vitamin) Tablet] 1 tab PO DAILY #90 tablet 10/06/18 Oxycodone HCl/Acetaminophen [Percocet 5-325 mg Tablet] 1 tab PO Q6HP PRN #12 tablet 10/06/18 Colchicine 0.6 mg PO DAILY 7 Days #7 capsule 10/21/19 Ondansetron [Zofran Odt 4 mg Tablet] 1 - 2 tab PO Q4H PRN #15 tab.rapdis 10/22/19 Clonidine HCl [Clonidine HCl ER] 0.1 mg PO DAILY 11/02/19 Allergies/Adverse Reactions: No Known Allergies Allergy (Verified 12/13/19 15:12) Review of Systems Constitutional: PRESENT: as per HPI Eyes: ABSENT: visual disturbances Ears: ABSENT: hearing changes Nose, Mouth, and Throat: ABSENT: as per HPI, headache(s), mouth pain, sore throat, vertigo, other Cardiovascular: ABSENT: chest pain, dyspnea on exertion, edema, orthropnea, palpitations Respiratory: ABSENT: cough, hemoptysis Gastrointestinal: PRESENT: as per HPI Genitourinary: ABSENT: dysuria, hematuria Musculoskeletal: ABSENT: joint swelling Integumentary: ABSENT: rash, wounds Neurological: PRESENT: as per HPI Psychiatric: ABSENT: anxiety, depression, homidical ideation, suicidal ideation Endocrine: PRESENT: as per HPI Hematologic/Lymphatic: ABSENT: easy bleeding, easy bruising Physical Exam Vital Signs: Temp Pulse Resp BP Pulse Ox 97.9 F 74 20 126/75 H 100 12/13/19 19:54 12/13/19 19:54 12/13/19 19:54 12/13/19 19:54 12/13/19 19:54 Intake & Output 12/12/19 12/13/19 12/14/19 06:59 06:59 06:59 Intake Total 1000 Balance 1000 Weight 104.9 kg Additional comments: GENERAL APPEARANCE: Obese, in no acute distress. HEENT: Normocephalic and atraumatic. No scleral icterus. PERRLA, EOMs intact, dry buccal mucosa NECK: Supple. Trachea is midline. No evidence of thyroid enlargement. No lymphadenopathy or tenderness. No carotid bruit. No JVD CHEST: Symmetric. Nontender to palpation. LUNGS: Breath sounds are equal and clear bilaterally. No wheezes, rhonchi, or rales. HEART: Regular rate and rhythm with normal S1 and S2. No murmurs, gallops, or rubs. ABDOMEN: Full abdomen soft, moves with respiration has mild epigastric tenderne ss but no guarding, rigidity or rebound No organomegaly appreciated, no CVA tenderness EXTREMITIES: No cyanosis, clubbing, or edema. MUSCULOSKELETAL: No deformity, atrophy or swelling noted PSYCHIATRIC: The patient is awake, alert, and oriented x3. Recent and remote memory is intact. SKIN: Warm, dry, and well perfused. No lesions or rashes are noted. NEUROLOGIC: No no new neurologic deficit detected Results Laboratory Results: 12/13/19 16:30 12/13/19 16:30 12/13/19 12/13/19 12/13/19 16:30 16:30 19:05 WBC 11.3 H RBC 4.65 Hgb 14.6 Hct 41.6 MCV 90 MCH 31.4 MCHC 35.1 RDW 13.4 Plt Count 160 Seg Neutrophils % 58.3 Sodium 130.1 L Potassium 5.1 H Chloride 99 Carbon Dioxide 21 L Anion Gap 10 BUN 62 H Creatinine 1.80 H Est GFR ( Amer) 45 L Glucose 309 H Calcium 8.9 Total Bilirubin 1.2 AST 67 H Alkaline Phosphatase 129 H Total Protein 5.7 L Albumin 2.9 L Urine Color YELLOW Urine Appearance CLEAR Urine pH 5.0 Ur Specific [place] 1.015 Urine Protein NEGATIVE Urine Glucose (UA) >=500 H Urine Ketones TRACE H Urine Blood NEGATIVE Urine Nitrite NEGATIVE Ur Leukocyte Esterase NEGATIVE Urine WBC (Auto) 0 12/13/19 20:35 Troponin I < 0.012 Impressions: Chest X-Ray 12/13/19 18:46 IMPRESSION: NO ACUTE RADIOGRAPHIC FINDING IN THE CHEST. Assessment and Plan - Diagnosis (1) Acute kidney injury Is this a current diagnosis for this admission?: Yes Plan: BUN/creatinine on this presentation was 62/1.8 from a baseline of around 1.2 in October 2019 High BUN/creatinine ratio likely consistent with prerenal cause Will calculate FeNa Was hydrated with a liter of LR at the ER end continued hydration with NS Renally dose medications, avoid nephrotoxic drugs Will continue to monitor renal indicis (2) Hyponatremia Is this a current diagnosis for this admission?: Yes Plan: Sodium corrected for hyperglycemia 133 Volume depletion likely the contributing factor We will continue IV hydration Optimally control blood sugar Continue to monitor BMP (3) Volume depletion, gastrointestinal loss Is this a current diagnosis for this admission?: Yes Plan: Patient has been having diarrhea, nausea and vomiting Poor oral intake likely contributing factor Currently she is hemodynamically stable Continue IV hydration Encourage oral intake as tolerated (4) Hyperglycemia Is this a current diagnosis for this admission?: Yes Plan: Blood sugar on presentation was 309 Has no elevated anion gap and no ketones Possibly due to medication noncompliance Started on glargine insulin 15 units daily Sliding scale Accu-Chek Hypoglycemia protocol (5) Leukocytosis Is this a current diagnosis for this admission?: Yes Plan: WBC count was 11.3k on presentation Likely due to hemoconcentration other cell lines also have increased We will continue monitoring CBC and any sign of action (6) Coronary artery disease Qualifiers: Coronary Disease-Associated Artery/Lesion type: [place] artery Associated angina: without angina Is this a current diagnosis for this admission?: Yes Plan: Currently patient denies any chest pain Continue home medications including aspirin, statin, carvedilol (7) Diarrhea Qualifiers: Diarrhea type: unspecified type Qualified Code(s): R19.7 - Diarrhea, unspecified Is this a current diagnosis for this admission?: Yes Plan: Patient presents with chronic diarrhea Had colonoscopy a month ago which showed diverticulosis Patient denies lower abdominal pain, fever Will screen for C. difficile consider CTA abdomen once kidney function improves to rule outs possible diverticulitis Continue hydration and encourage oral intake (8) History of CVA (cerebrovascular accident) Is this a current diagnosis for this admission?: Yes Plan: No new focal neurologic deficits Continue secondary prevention with aspirin and statin (9) Duodenal ulcer Is this a current diagnosis for this admission?: Yes Plan: Upper GI endoscopy done a month ago showed duodenal ulcer and gastritis Pathology was negative for H. pylori Started pantoprazole 40 mg p.o. daily - Time Time Spent with patient: 35 or more minutes Medications reviewed and adjusted accordingly: Yes Anticipated Discharge Disposition: Home, Self Care Anticipated Discharge Timeframe: within 72 hours - Inpatient Certification Based on my medical assessment, after consideration of the patient's comorbidities, presenting symptoms, or acuity I expect that the services needed warrant INPATIENT care.: Yes I certify that my determination is in accordance with my understanding of Medicare's requirements for reasonable and necessary INPATIENT services [42 CFR 412.3e].: Yes Medical Necessity: Significant Comorbidiites Make Outpatient Treatment Too Risky, Need Close Monitoring Due to Risk of Patient Decompensation, Need For IV Fluids
[2019-12-13] MEDS ORDERED: CLOPIDOGREL BISULFATE 75 MG TABLET PO ONE (22:36)
[2019-12-13 22:45] LABS: AMYLASE 35 U/L (30-110); ANION GAP 8 (5-19); BLOOD UREA NITROGEN 54 mg/dL (7-20); CALCIUM 8.8 mg/dL (8.4-10.2); CARBON DIOXIDE 25 mmol/L (22-30); CHLORIDE 99 mmol/L (98-107); GLUCOSE 289 mg/dL (75-110); POTASSIUM 4.3 mmol/L (3.6-5.0)
[2019-12-13] MEDS: INSULIN LISPRO 100 UNIT/ML 3 ML VIAL SUBCUT SCH (23:40)
[2019-12-13] MEDS: HEPARIN SOD (PORCINE) 5,000 UNIT/ML 1 ML VIAL SUBCUT SCH (23:41)
[2019-12-13] MEDS: ATORVASTATIN CALCIUM 40 MG TABLET PO SCH (23:41)
[2019-12-14] MEDS: PANTOPRAZOLE SODIUM 40 MG TABLET.DR PO SCH (05:58)
[2019-12-14] MEDS: HEPARIN SOD (PORCINE) 5,000 UNIT/ML 1 ML VIAL SUBCUT SCH ×3 (05:58→21:46)
[2019-12-14 06:33] LABS: URINE CREATININE 85.2 mg/dL (22-328)
[2019-12-14] MEDS: INSULIN LISPRO 100 UNIT/ML 3 ML VIAL SUBCUT SCH ×4 (08:28→21:46)
[2019-12-14 08:56] LABS: ABSOLUTE EOSINOPHILS # (AUTO) 0.3 10^3/uL (0.0-0.6); ABSOLUTE LYMPHOCYTES (AUTO) 3.4 10^3/uL (0.5-4.7); ABSOLUTE MONOCYTES (AUTO) 0.9 10^3/uL (0.1-1.4); ABSOLUTE NEUT (AUTO) 6.6 10^3/uL (1.7-8.2); BASOPHILS % (AUTO) 0.1 % (0-2); EOSINOPHILS % (AUTO) 2.8 % (0-6); HEMATOCRIT 39.7 % (37.9-51.0); HEMOGLOBIN 13.6 g/dL (13.5-17.0); LYMPHOCYTES % (AUTO) 29.9 % (13-45); MEAN CORPUSCULAR HEMOGLOBIN 31.1 pg (27.0-33.4); MEAN CORPUSCULAR HGB CONC 34.4 g/dL (32.0-36.0); MEAN CORPUSCULAR VOLUME 91 fl (80-97); MONOCYTES % (AUTO) 8.2 % (3-13); PLATELET COUNT 145 10^3/uL (150-450); RED BLOOD COUNT 4.38 10^6/uL (4.35-5.55); RED CELL DISTRIBUTION WIDTH 13.6 % (11.5-14.0); TOTAL CELLS COUNTED % (AUTO) 100 %; WHITE BLOOD COUNT 11.2 10^3/uL (4.0-10.5)
[2019-12-14] MEDS ORDERED: INSULIN GLARGINE,HUM.REC.ANLOG 1,000 UNIT/10 ML VIAL SUBCUT SCH (10:00)
[2019-12-14] MEDS: ASPIRIN 81 MG TABLET, CHEWABLE PO SCH (10:35)
[2019-12-14] MEDS: METOPROLOL SUCCINATE 50 MG TAB.SR.24H PO SCH (10:35)
--- NOTE | 2019-12-14 11:36 | PDOC PROGRESS REPORT ---
Subjective Progress Note for:: 12/14/19 Subjective:: 69 year old male with a history of CAD, hyperlipidemia, CVA with residual right-sided weakness, type 2 diabetes who now presents with generalized fatigue, weakness, with associated loss of appetite. Patient states that he has been having watery diarrhea for the past 2 weeks but is unable to give detailed description. He tried hicu-luf-pathlce medication for diarrhea but did not help. He also reports mild epigastric discomfort. Denies any history of melena, hematochezia or hematemesis. He has not upper and lower GI endoscopy done 1 month ago and was told that he has ulcer. He denies any fever, chills, cough, shortness of breath, palpitation, orthopnea or PND. He denies any recent sick contact history. 12/14/19-patient complaining of abdominal pain. Came in with acute kidney injury. Patient has history of CABG, CVA, type 2 diabetes mellitus. To do the CT abdominal pelvis without contrast today. Recently had upper and lower GI endoscopy and he was told he has a gastric ulcer. Patient is also complained of watery diarrhea at the time of admission unable to give any stool sample at this time for C. difficile and to check for the ova and parasites. Reason For Visit: ACUTE KIDNEY INJURY,VOLUME DEPLETION Physical Exam Vital Signs: Temp Pulse Resp BP Pulse Ox 97.7 F 71 11 L 136/70 H 100 12/14/19 10:00 12/14/19 08:42 12/14/19 07:39 12/14/19 07:39 12/14/19 07:39 Intake & Output 12/13/19 12/14/19 12/15/19 06:59 06:59 06:59 Intake Total 1260 Balance 1260 Weight 107.7 kg General appearance: PRESENT: no acute distress, morbidly obese Head exam: PRESENT: atraumatic Eye exam: PRESENT: PERRLA Ear exam: PRESENT: bleeding Mouth exam: PRESENT: neck supple Neck exam: ABSENT: carotid bruit, JVD, lymphadenopathy, thyromegaly Respiratory exam: PRESENT: clear to auscultation michaela. ABSENT: rales, rhonchi, wheezes Cardiovascular exam: PRESENT: RRR. ABSENT: diastolic murmur, rubs, systolic murmur Pulses: PRESENT: normal dorsalis pedis pul GI/Abdominal exam: PRESENT: normal bowel sounds, soft, tenderness, other - Planing of generalized mild tenderness on palpation.. ABSENT: distended, guarding, mass, organolmegaly, rebound Rectal exam: PRESENT: deferred Extremities exam: PRESENT: +1 edema Neurological exam: PRESENT: alert, awake, oriented to person, oriented to place, oriented to time, oriented to situation, CN II-XII grossly intact. ABSENT: motor sensory deficit Psychiatric exam: PRESENT: appropriate affect, normal mood. ABSENT: homicidal ideation, suicidal ideation Results Laboratory Results: 12/14/19 08:10 12/13/19 22:15 12/13/19 12/13/19 12/13/19 16:30 16:30 19:05 WBC 11.3 H RBC 4.65 Hgb 14.6 Hct 41.6 MCV 90 MCH 31.4 MCHC 35.1 RDW 13.4 Plt Count 160 Seg Neutrophils % 58.3 Sodium 130.1 L Potassium 5.1 H Chloride 99 Carbon Dioxide 21 L Anion Gap 10 BUN 62 H Creatinine 1.80 H Est GFR ( Amer) 45 L Glucose 309 H Calcium 8.9 Magnesium Total Bilirubin 1.2 AST 67 H Alkaline Phosphatase 129 H Total Protein 5.7 L Albumin 2.9 L Amylase Lipase Urine Color YELLOW Urine Appearance CLEAR Urine pH 5.0 Ur Specific [place] 1.015 Urine Protein NEGATIVE Urine Glucose (UA) >=500 H Urine Ketones TRACE H Urine Blood NEGATIVE Urine Nitrite NEGATIVE Ur Leukocyte Esterase NEGATIVE Urine WBC (Auto) 0 12/13/19 12/14/19 12/14/19 22:15 08:10 08:10 WBC 11.2 H RBC 4.38 Hgb 13.6 Hct 39.7 MCV 91 MCH 31.1 MCHC 34.4 RDW 13.6 Plt Count 145 L Seg Neutrophils % 59.0 Sodium 131.7 L Potassium 4.3 Chloride 99 Carbon Dioxide 25 Anion Gap 8 BUN 54 H Creatinine 1.77 H Est GFR ( Amer) 46 L Glucose 289 H Calcium 8.8 Magnesium 1.6 Total Bilirubin AST Alkaline Phosphatase Total Protein Albumin Amylase 35 Lipase 314.2 H Urine Color Urine Appearance Urine pH Ur Specific [place] Urine Protein Urine Glucose (UA) Urine Ketones Urine Blood Urine Nitrite Ur Leukocyte Esterase Urine WBC (Auto) 12/13/19 20:35 Troponin I < 0.012 Impressions: Chest X-Ray 10/22/20 18:46 IMPRESSION: NO ACUTE RADIOGRAPHIC FINDING IN THE CHEST. Assessment and Plan - Diagnosis (1) Acute kidney injury Is this a current diagnosis for this admission?: Yes Plan: BUN/creatinine on this presentation was 62/1.8 from a baseline of around 1.2 in October 2019 High BUN/creatinine ratio likely consistent with prerenal cause Will calculate FeNa Was hydrated with a liter of LR at the ER end continued hydration with NS Renally dose medications, avoid nephrotoxic drugs Will continue to monitor renal indicis 12/14/19-admitted with acute kidney injury. Latest creatinine is 1.45 . Plan is to discontinue IV fluids increased oral fluids. To restart his home medications. To avoid nephrotoxins at this time. (2) Hyponatremia Is this a current diagnosis for this admission?: Yes Plan: Sodium corrected for hyperglycemia 133 Volume depletion likely the contributing factor We will continue IV hydration Optimally control blood sugar Continue to monitor BMP 12/14/19-serum sodium is 137. Hyponatremia resolved. (3) Hyperglycemia Is this a current diagnosis for this admission?: No Plan: Blood sugar on presentation was 309 Has no elevated anion gap and no ketones Possibly due to medication noncompliance Started on glargine insulin 15 units daily Sliding scale Accu-Chek Hypoglycemia protocol 12/14/2019-hemoglobin A1c is 11.6. Blood sugar is 170. Diet exercise weight loss lifestyle modifications discussed with the patient. (4) Obesity (BMI 30-39.9) Is this a current diagnosis for this admission?: No Plan: 12/14/2019-patient BMI is more than 38. Diet exercise weight loss lifestyle modifications discussed with the patient. (5) Leukocytosis Is this a current diagnosis for this admission?: Yes Plan: WBC count was 11.3k on presentation Likely due to hemoconcentration other cell lines also have increased We will continue monitoring CBC and any sign of action 12/14/2019-WBC count is 11,200. No signs of sepsis seen. Plan is to continue to monitor the labs on daily basis. (6) Diarrhea Qualifiers: Diarrhea type: unspecified type Qualified Code(s): R19.7 - Diarrhea, unspecified Is this a current diagnosis for this admission?: Yes Plan: Patient presents with chronic diarrhea Had colonoscopy a month ago which showed diverticulosis Patient denies lower abdominal pain, fever Will screen for C. difficile consider CTA abdomen once kidney function improves to rule outs possible diverticulitis Continue hydration and encourage oral intake 12/14/2019-patient came in with complaints of watery diarrhea. C. difficile is requested. No bowel movement noticed at this time. (7) Duodenal ulcer Is this a current diagnosis for this admission?: Yes Plan: Upper GI endoscopy done a month ago showed duodenal ulcer and gastritis Pathology was negative for H. pylori Started pantoprazole 40 mg p.o. daily - Time Anticipated Discharge Disposition: Home, Self Care Anticipated Discharge Timeframe: within 72 hours
--- NOTE | 2019-12-14 13:50 | RADIOLOGY REPORT (SQ) ---
EXAM DESCRIPTION: CT ABD/PELVIS NO ORAL OR IV IMAGES COMPLETED DATE/TIME: 12/14/2019 1:35 pm REASON FOR STUDY: abd pain D50.9 IRON DEFICIENCY ANEMIA, UNSPECIFIED R10.84 GENERALIZED ABDOMINAL PAIN COMPARISON: 10/22/2019 TECHNIQUE: CT scan of the abdomen and pelvis performed without intravenous or oral contrast. Images reviewed with lung, soft tissue, and bone windows. Reconstructed coronal and sagittal MPR images revi ewed. All images stored on PACS. All CT scanners at this facility use dose modulation, iterative reconstruction, and/or weight based d osing when appropriate to reduce radiation dose to as low as reasonably achievable (ALARA). [facility]: Dose Right [facility]: CareDose [facility]: Dose Right [facility]: Teradose 4D [facility]: Smart [place] RADIATION DOSE: CT Rad equipment meets quality standard of care and radiation dose reduction techniq ues were employed. CTDIvol: 20.1 mGy. DLP: 1082 mGy-cm.mGy. LIMITATIONS: None. FINDINGS: LOWER CHEST: No significant findings. No nodules or infiltrates. NON-CONTRASTED LIVER, SPLEEN, ADRENALS: Grossly stable in appearance. No focal lesions. PANCREAS: Pancreas is atrophic. There are inflammatory changes now present in the region of the panc reatic head consistent with pancreatitis. No focal fluid collections. GALLBLADDER: Surgically absent. RIGHT KIDNEY AND URETER: No suspicious masses. Assessment limited by lack of IV contrast. No signif icant calcifications. No hydronephrosis or hydroureter. LEFT KIDNEY AND URETER: No suspicious masses. Assessment limited by lack of IV contrast. No signifi cant calcifications. No hydronephrosis or hydroureter. AORTA AND RETROPERITONEUM: No aneurysm. No retroperitoneal masses or adenopathy. BOWEL AND PERITONEAL CAVITY: No obvious masses or inflammatory changes. No free fluid. APPENDIX: Surgically absent. PELVIS, BLADDER, AND ABDOMINAL WALL:No abnormal masses. No free fluid. Bladder normal. BONES: No significant findings. OTHER: No other significant finding. IMPRESSION: Peripancreatic inflammatory changes new from prior study in consistent with pancreatitis . No focal fluid collections. Prior cholecystectomy. COMMENT: Quality ID # [id number]: Final reports with documentation of one or more dose reduction techniques (e.g., Automated exposure control, adjustment of the mA and/or kV according to patient size, use of iterative reconstruction technique) TECHNICAL DOCUMENTATION: JOB ID: [id number] 2010 [employer]- All Rights Reserved Reading location - IP/workstation name: [email or web address]
[2019-12-14] MEDS ORDERED: ICOSAPENT ETHYL 1 GM PO SCH (14:00)
[2019-12-14] MEDS: LISINOPRIL 10 MG TABLET PO SCH (16:39)
[2019-12-14] MEDS: COLCHICINE 0.6 MG TABLET PO SCH (16:40)
[2019-12-14] MEDS ORDERED: (PENDING PHARMACY ID) (Brimonidine Tartrate [Alphagan P] 1 DROP) OP SCH (18:00)
[2019-12-14] MEDS: INSULIN GLARGINE,HUM.REC.ANLOG 1,000 UNIT/10 ML VIAL SUBCUT SCH (21:47)
[2019-12-14] MEDS: ATORVASTATIN CALCIUM 40 MG TABLET PO SCH (21:47)
[2019-12-14] MEDS: CARBAMAZEPINE 200 MG TAB.SR.12H PO SCH (21:48)
[2019-12-14] MEDS ORDERED: (PENDING PHARMACY ID) (Insulin Degludec [Tresiba Flextouch U-200] 40 UNIT) SUBCUT SCH (22:00)
[2019-12-15 06:15] LABS: ABSOLUTE EOSINOPHILS # (AUTO) 0.3 10^3/uL (0.0-0.6); ABSOLUTE LYMPHOCYTES (AUTO) 2.8 10^3/uL (0.5-4.7); ABSOLUTE MONOCYTES (AUTO) 0.7 10^3/uL (0.1-1.4); ABSOLUTE NEUT (AUTO) 4.5 10^3/uL (1.7-8.2); BASOPHILS % (AUTO) 0.1 % (0-2); EOSINOPHILS % (AUTO) 3.2 % (0-6); HEMATOCRIT 40.5 % (37.9-51.0); HEMOGLOBIN 13.9 g/dL (13.5-17.0); LYMPHOCYTES % (AUTO) 33.8 % (13-45); MEAN CORPUSCULAR HEMOGLOBIN 31.1 pg (27.0-33.4); MEAN CORPUSCULAR HGB CONC 34.2 g/dL (32.0-36.0); MEAN CORPUSCULAR VOLUME 91 fl (80-97); MONOCYTES % (AUTO) 8.7 % (3-13); PLATELET COUNT 136 10^3/uL (150-450); RED BLOOD COUNT 4.45 10^6/uL (4.35-5.55); RED CELL DISTRIBUTION WIDTH 13.6 % (11.5-14.0); SEGMENTED NEUTROPHILS % (AUTO) 54.2 % (42-78); TOTAL CELLS COUNTED % (AUTO) 100 %; WHITE BLOOD COUNT 8.3 10^3/uL (4.0-10.5)
[2019-12-15 06:38] LABS: ALBUMIN 2.5 g/dL (3.5-5.0); ALKALINE PHOSPHATASE 129 U/L (38-126); ANION GAP 7 (5-19); ASPARTATE AMINO TRANSFERASE 66 U/L (17-59); BILIRUBIN,DIRECT 0.5 mg/dL (0.0-0.4); BILIRUBIN,TOTAL 0.9 mg/dL (0.2-1.3); BLOOD UREA NITROGEN 30 mg/dL (7-20); CALCIUM 8.5 mg/dL (8.4-10.2); CARBON DIOXIDE 23 mmol/L (22-30); CHLORIDE 108 mmol/L (98-107); GLUCOSE 150 mg/dL (75-110); TOTAL PROTEIN 5.3 g/dL (6.3-8.2)
[2019-12-15] MEDS: PANTOPRAZOLE SODIUM 40 MG TABLET.DR PO SCH (06:42)
[2019-12-15] MEDS: HEPARIN SOD (PORCINE) 5,000 UNIT/ML 1 ML VIAL SUBCUT SCH ×3 (06:42→22:00)
[2019-12-15] MEDS: INSULIN LISPRO 100 UNIT/ML 3 ML VIAL SUBCUT SCH ×4 (07:45→22:01)
--- NOTE | 2019-12-15 09:45 | PDOC PROGRESS REPORT ---
Subjective Progress Note for:: 12/15/19 Subjective:: 69 year old male with a history of CAD, hyperlipidemia, CVA with residual right-sided weakness, type 2 diabetes who now presents with generalized fatigue, weakness, with associated loss of appetite. Patient states that he has been having watery diarrhea for the past 2 weeks but is unable to give detailed description. He tried wucq-arm-ykkckpi medication for diarrhea but did not help. He also reports mild epigastric discomfort. Denies any history of melena, hematochezia or hematemesis. He has not upper and lower GI endoscopy done 1 month ago and was told that he has ulcer. He denies any fever, chills, cough, shortness of breath, palpitation, orthopnea or PND. He denies any recent sick contact history. 12/14/19-patient complaining of abdominal pain. Came in with acute kidney injury. Patient has history of CABG, CVA, type 2 diabetes mellitus. To do the CT abdominal pelvis without contrast today. Recently had upper and lower GI endoscopy and he was told he has a gastric ulcer. Patient is also complained of watery diarrhea at the time of admission unable to give any stool sample at this time for C. difficile and to check for the ova and parasites. 12/15/[id number]-pifn-old male admitted for acute kidney injury resolving. Complaint of abdominal pain CT scan indicated for pancreatitis. Lipase level came down to 198. Patient is tolerating the diet well. No complaints concerns except for the patient today. Reason For Visit: ACUTE KIDNEY INJURY,VOLUME DEPLETION Physical Exam Vital Signs: Temp Pulse Resp BP Pulse Ox 98.0 F 65 19 126/58 H 100 12/15/19 07:31 12/15/19 07:31 12/15/19 07:31 12/15/19 07:31 12/15/19 07:31 Intake & Output 12/14/19 12/15/19 12/16/19 06:59 06:59 06:59 Intake Total 1260 1440 Output Total 875 Balance 1260 565 Weight 107.7 kg 111.4 kg General appearance: PRESENT: no acute distress, morbidly obese Head exam: PRESENT: atraumatic Eye exam: PRESENT: PERRLA Mouth exam: PRESENT: moist, tongue midline Teeth exam: PRESENT: poor dentation Neck exam: ABSENT: carotid bruit, JVD, lymphadenopathy, thyromegaly Respiratory exam: PRESENT: decreased breath sounds Cardiovascular exam: PRESENT: RRR. ABSENT: diastolic murmur, rubs, systolic murmur Pulses: PRESENT: normal dorsalis pedis pul GI/Abdominal exam: PRESENT: normal bowel sounds, soft. ABSENT: distended, guarding, mass, organolmegaly, rebound, tenderness Rectal exam: PRESENT: deferred Extremities exam: PRESENT: full ROM. ABSENT: calf tenderness, clubbing, pedal edema Neurological exam: PRESENT: alert, awake, oriented to person, oriented to place, oriented to time, oriented to situation, CN II-XII grossly intact. ABSENT: motor sensory deficit Psychiatric exam: PRESENT: appropriate affect, normal mood. ABSENT: homicidal ideation, suicidal ideation Results Laboratory Results: 12/15/19 05:35 12/15/19 05:35 12/15/19 12/15/19 12/15/19 05:35 05:35 05:35 WBC 8.3 RBC 4.45 Hgb 13.9 Hct 40.5 MCV 91 MCH 31.1 MCHC 34.2 RDW 13.6 Plt Count 136 L Seg Neutrophils % 54.2 Sodium 137.6 Potassium 4.0 Chloride 108 H Carbon Dioxide 23 Anion Gap 7 BUN 30 H Creatinine 1.22 Est GFR ( Amer) > 60 Glucose 150 H Calcium 8.5 Magnesium 1.9 Total Bilirubin 0.9 AST 66 H Alkaline Phosphatase 129 H Total Protein 5.3 L Albumin 2.5 L Lipase 198.4 12/13/19 20:35 Troponin I < 0.012 Impressions: Chest X-Ray 12/13/19 18:46 IMPRESSION: NO ACUTE RADIOGRAPHIC FINDING IN THE CHEST. Abdomen/Pelvis CT 12/14/19 00:00 IMPRESSION: Peripancreatic inflammatory changes new from prior study in consistent with pancreatitis. No focal fluid collections. Prior cholecystectomy. Assessment and Plan - Diagnosis (1) Acute kidney injury Is this a current diagnosis for this admission?: Yes Plan: BUN/creatinine on this presentation was 62/1.8 from a baseline of around 1.2 in October 2019 High BUN/creatinine ratio likely consistent with prerenal cause Will calculate FeNa Was hydrated with a liter of LR at the ER end continued hydration with NS Renally dose medications, avoid nephrotoxic drugs Will continue to monitor renal indicis 12/14/19-admitted with acute kidney injury. Latest creatinine is 1.45 . Plan is to discontinue IV fluids increased oral fluids. To restart his home medicati ons. To avoid nephrotoxins at this time. 12/15/19-latest creatinine is 1.22. Not on IV fluids. Acute kidney injury is resolving. (2) Hyponatremia Is this a current diagnosis for this admission?: Yes Plan: Sodium corrected for hyperglycemia 133 Volume depletion likely the contributing factor We will continue IV hydration Optimally control blood sugar Continue to monitor BMP 12/14/19-serum sodium is 137. Hyponatremia resolved. 12/15/2019-serum sodium is 137.6. Stable. Hyponatremia resolved. (3) Hyperglycemia Is this a current diagnosis for this admission?: No Plan: Blood sugar on presentation was 309 Has no elevated anion gap and no ketones Possibly due to medication noncompliance Started on glargine insulin 15 units daily Sliding scale Accu-Chek Hypoglycemia protocol 12/14/2019-hemoglobin A1c is 11.6. Blood sugar is 170. Diet exercise weight loss lifestyle modifications discussed with the patient. 12/15/2019-latest blood sugar is 171. To continue the present management at this time. (4) Obesity (BMI 30-39.9) Is this a current diagnosis for this admission?: No Plan: 12/14/2019-patient BMI is more than 38. Diet exercise weight loss lifestyle modifications discussed with the patient. (5) Leukocytosis Is this a current diagnosis for this admission?: Yes Plan: WBC count was 11.3k on presentation Likely due to hemoconcentration other cell lines also have increased We will continue monitoring CBC and any sign of action 12/14/2019-WBC count is 11,200. No signs of sepsis seen. Plan is to continue to monitor the labs on daily basis. 12/15/2019-WBC count is 8300 today. Leukocytosis is resolved. (6) Diarrhea Qualifiers: Diarrhea type: unspecified type Qualified Code(s): R19.7 - Diarrhea, unspecified Is this a current diagnosis for this admission?: Yes Plan: Patient presents with chronic diarrhea Had colonoscopy a month ago which showed diverticulosis Patient denies lower abdominal pain, fever Will screen for C. difficile consider CTA abdomen once kidney function improves to rule outs possible diverticulitis Continue hydration and encourage oral intake 12/14/2019-patient came in with complaints of watery diarrhea. C. difficile is requested. No bowel movement noticed at this time. 12/15/2019-pt comes in with complaints of watery diarrhea no diarrhea is noticed during the hospital stay. Unable to get stool sample at this time. (7) Duodenal ulcer Is this a current diagnosis for this admission?: Yes Plan: Upper GI endoscopy done a month ago showed duodenal ulcer and gastritis Pathology was negative for H. pylori Started pantoprazole 40 mg p.o. daily - Time Anticipated Discharge Disposition: Home, Self Care Anticipated Discharge Timeframe: within 48 hours
[2019-12-15] MEDS ORDERED: VIT B6 PO SCH (10:00)
[2019-12-15] MEDS ORDERED: (PENDING PHARMACY ID) (Colchicine [Colchicine] 0.6 MG) PO SCH (10:00)
[2019-12-15] MEDS ORDERED: VIT B12 PO SCH (10:00)
[2019-12-15] MEDS ORDERED: (PENDING PHARMACY ID) (Lisinopril [Zestril] 40 MG) PO SCH (10:00)
[2019-12-15] MEDS ORDERED: B2 PO SCH (10:00)
[2019-12-15] MEDS ORDERED: LEVOMEFOLATE PO SCH (10:00)
[2019-12-15] MEDS: METOPROLOL SUCCINATE 50 MG TAB.SR.24H PO SCH (10:54)
[2019-12-15] MEDS: LISINOPRIL 10 MG TABLET PO SCH (10:54)
[2019-12-15] MEDS: ASPIRIN 81 MG TABLET, CHEWABLE PO SCH (10:54)
[2019-12-15] MEDS: CLOPIDOGREL BISULFATE 75 MG TABLET PO SCH (10:54)
[2019-12-15] MEDS: POTASSIUM CHLORIDE 10 MEQ TABLET.ER PO SCH (10:54)
[2019-12-15] MEDS: COLCHICINE 0.6 MG TABLET PO SCH (10:55)
[2019-12-15] MEDS: CARBAMAZEPINE 200 MG TAB.SR.12H PO SCH ×2 (10:55→22:00)
[2019-12-15] MEDS: INSULIN GLARGINE,HUM.REC.ANLOG 1,000 UNIT/10 ML VIAL SUBCUT SCH (22:00)
[2019-12-15] MEDS: ATORVASTATIN CALCIUM 40 MG TABLET PO SCH (22:00)
[2019-12-16] MEDS: HEPARIN SOD (PORCINE) 5,000 UNIT/ML 1 ML VIAL SUBCUT SCH (06:42)
[2019-12-16] MEDS: PANTOPRAZOLE SODIUM 40 MG TABLET.DR PO SCH (06:42)
[2019-12-16 06:43] LABS: ABSOLUTE EOSINOPHILS # (AUTO) 0.3 10^3/uL (0.0-0.6); ABSOLUTE LYMPHOCYTES (AUTO) 2.6 10^3/uL (0.5-4.7); ABSOLUTE MONOCYTES (AUTO) 0.5 10^3/uL (0.1-1.4); ABSOLUTE NEUT (AUTO) 3.3 10^3/uL (1.7-8.2); EOSINOPHILS % (AUTO) 3.9 % (0-6); HEMATOCRIT 40.5 % (37.9-51.0); HEMOGLOBIN 14.1 g/dL (13.5-17.0); LYMPHOCYTES % (AUTO) 39.1 % (13-45); MEAN CORPUSCULAR HEMOGLOBIN 31.7 pg (27.0-33.4); MEAN CORPUSCULAR HGB CONC 34.8 g/dL (32.0-36.0); MEAN CORPUSCULAR VOLUME 91 fl (80-97); MONOCYTES % (AUTO) 7.9 % (3-13); PLATELET COUNT 135 10^3/uL (150-450); RED BLOOD COUNT 4.44 10^6/uL (4.35-5.55); RED CELL DISTRIBUTION WIDTH 13.5 % (11.5-14.0); SEGMENTED NEUTROPHILS % (AUTO) 49.1 % (42-78); TOTAL CELLS COUNTED % (AUTO) 100 %; WHITE BLOOD COUNT 6.7 10^3/uL (4.0-10.5)
[2019-12-16] MEDS: INSULIN LISPRO 100 UNIT/ML 3 ML VIAL SUBCUT SCH ×2 (08:25→12:03)
--- NOTE | 2019-12-16 09:54 | PDOC DISCHARGE SUMMARY ---
Impression - Admit/DC Date/PCP Admission Date/Primary Care Provider: 12/13/19 21:55 THOMAS PELAEZ MD Discharge Date: 12/16/19 - Discharge Diagnosis (1) Acute kidney injury Is this a current diagnosis for this admission?: Yes (2) Hyponatremia Is this a current diagnosis for this admission?: Yes (3) Hyperglycemia Is this a current diagnosis for this admission?: No (4) Obesity (BMI 30-39.9) Is this a current diagnosis for this admission?: No (5) Leukocytosis Is this a current diagnosis for this admission?: Yes (6) Diarrhea Is this a current diagnosis for this admission?: Yes (7) Duodenal ulcer Is this a current diagnosis for this admission?: Yes - Assessment Summary: (1) Acute kidney injury Is this a current diagnosis for this admission?: Yes Plan: BUN/creatinine on this presentation was 62/1.8 from a baseline of around 1.2 in October 2019 High BUN/creatinine ratio likely consistent with prerenal cause Will calculate FeNa Was hydrated with a liter of LR at the ER end continued hydration with NS Renally dose medications, avoid nephrotoxic drugs Will continue to monitor renal indicis 12/14/19-admitted with acute kidney injury. Latest creatinine is 1.45 . Plan is to discontinue IV fluids increased oral fluids. To restart his home medicati ons. To avoid nephrotoxins at this time. 12/15/19-latest creatinine is 1.22. Not on IV fluids. Acute kidney injury is resolving. 12/16/19-latest serum creatinine is 1.22. Acute kidney injury is resolving. (2) Hyponatremia Is this a current diagnosis for this admission?: Yes Plan: Sodium corrected for hyperglycemia 133 Volume depletion likely the contributing factor We will continue IV hydration Optimally control blood sugar Continue to monitor BMP 12/14/19-serum sodium is 137. Hyponatremia resolved. 12/15/2019-serum sodium is 137.6. Stable. Hyponatremia resolved. (3) Hyperglycemia Is this a current diagnosis for this admission?: No Plan: Blood sugar on presentation was 309 Has no elevated anion gap and no ketones Possibly due to medication noncompliance Started on glargine insulin 15 units daily Sliding scale Accu-Chek Hypoglycemia protocol 12/14/2019-hemoglobin A1c is 11.6. Blood sugar is 170. Diet exercise weight loss lifestyle modifications discussed with the patient. 12/15/2019-latest blood sugar is 171. To continue the present management at this time. 12/16/19-latest blood sugar is 117. (4) Obesity (BMI 30-39.9) Is this a current diagnosis for this admission?: No Plan: 12/14/2019-patient BMI is more than 38. Diet exercise weight loss lifestyle modifications discussed with the patient. (5) Leukocytosis Is this a current diagnosis for this admission?: Yes Plan: WBC count was 11.3k on presentation Likely due to hemoconcentration other cell lines also have increased We will continue monitoring CBC and any sign of action 12/14/2019-WBC count is 11,200. No signs of sepsis seen. Plan is to continue to monitor the labs on daily basis. 12/15/2019-WBC count is 8300 today. Leukocytosis is resolved. 12/16/19-came in with elevated WBC count resolved. (6) Diarrhea Qualifiers: Diarrhea type: unspecified type Qualified Code(s): R19.7 - Diarrhea, unspecified Is this a current diagnosis for this admission?: Yes Plan: Patient presents with chronic diarrhea Had colonoscopy a month ago which showed diverticulosis Patient denies lower abdominal pain, fever Will screen for C. difficile consider CTA abdomen once kidney function improves to rule outs possible diverticulitis Continue hydration and encourage oral intake 12/14/2019-patient came in with complaints of watery diarrhea. C. difficile is requested. No bowel movement noticed at this time. 12/15/2019-pt comes in with complaints of watery diarrhea no diarrhea is noticed during the hospital stay. Unable to get stool sample at this time. 12/16/2019-diarrhea is resolved. (7) Duodenal ulcer Is this a current diagnosis for this admission?: Yes Plan: Upper GI endoscopy done a month ago showed duodenal ulcer and gastritis Pathology was negative for H. pylori Started pantoprazole 40 mg p.o. daily - Additional Information Resuscitation Status: Full Code Discharge Diet: Cardiac, Diabetic Discharge Activity: Activity As Tolerated Referrals: THOMAS PELAEZ MD [Primary Care Provider] - Follow up as needed Home Medications: Clopidogrel Bisulfate [Plavix 75 mg Tablet] 75 mg PO DAILY 08/31/18 Gabapentin [Neurontin 300 mg Capsule] 300 mg PO Q8 08/31/18 Aspirin [Ecotrin 81 mg EC Tablet] 81 mg PO DAILY #30 tabec 09/06/18 Colchicine 0.6 mg PO DAILY 7 Days #7 capsule 10/21/19 Brimonidine Tartrate [Alphagan P] 1 drop OP BID 12/14/19 Carbamazepine [Tegretol Xr 200 mg Tab.sr] 200 mg PO BID 12/14/19 Carvedilol [Coreg 12.5 mg Tablet] 12.5 mg PO Q12 12/14/19 Icosapent Ethyl [Vascepa] 1 gm PO QID 12/14/19 Insulin Degludec [Tresiba Flextouch U-200] 40 unit SQ QHS 12/14/19 Potassium Chloride [Klor-Con 10 Meq Tablet ER] 20 meq PO DAILY 12/14/19 Vit B12/Levomefolate/Vit B6/B2 [Metafolbic Tablet] 1 each PO DAILY 12/14/19 Metoprolol Succinate [Toprol Xl 50 mg Tab.sr] 100 mg PO DAILY tab.sr.24h 12/16/19 History of Present Illiness History of Present Illness: RUSSELL PARRA is a 69 year old male 69 year old male with a history of CAD, hyperlipidemia, CVA with residual right-sided weakness, type 2 diabetes who now presents with generalized fatigue, weakness, with associated loss of appetite. Patient states that he has been having watery diarrhea for the past 2 weeks but is unable to give detailed description. He tried [id number] medication for diarrhea but did not help. He also reports mild epigastric discomfort. Denies any history of melena, hematochezia or hematemesis. He has not upper and lower GI endoscopy done 1 month ago and was told that he has ulcer. He denies any fever, chills, cough, shortness of breath, palpitation, orthopnea or PND. He denies any recent sick contact history. Hospital Course Hospital Course: 69 year old male with a history of CAD, hyperlipidemia, CVA with residual right- sided weakness, type 2 diabetes who now presents with generalized fatigue, weakness, with associated loss of appetite. Patient states that he has been having watery diarrhea for the past 2 weeks but is unable to give detailed description. He tried [id number] medication for diarrhea but did not help. He also reports mild epigastric discomfort. Denies any history of melena, hematochezia or hematemesis. He has not upper and lower GI endoscopy done 1 month ago and was told that he has ulcer. He denies any fever, chills, cough, shortness of breath, palpitation, orthopnea or PND. He denies any recent sick contact history. 12/14/19-patient complaining of abdominal pain. Came in with acute kidney injury. Patient has history of CABG, CVA, type 2 diabetes mellitus. To do the CT abdominal pelvis without contrast today. Recently had upper and lower GI endoscopy and he was told he has a gastric ulcer. Patient is also complained of watery diarrhea at the time of admission unable to give any stool sample at this time for C. difficile and to check for the ova and parasites. 12/15/[id number]-qcdy-old male admitted for acute kidney injury resolving. Complaint of abdominal pain CT scan indicated for pancreatitis. Lipase level came down to 198. Patient is tolerating the diet well. No complaints concerns except for the patient today. 12/16/19-patient admitted with acute kidney injury resolved. CT scan shows pancreatitis lipase levels improved. Able to tolerate the regular diet. Patient has dementia with occasional episodes of confusion. Patient is going home today. He needs to follow-up with his primary care physician next week. Physical Exam Vital Signs: Temp Pulse Resp BP Pulse Ox 97.7 F 68 21 H 131/66 H 100 12/16/19 08:00 12/16/19 08:00 12/16/19 08:00 12/16/19 08:00 12/16/19 08:00 Intake & Output 12/15/19 12/16/19 12/17/19 06:59 06:59 06:59 Intake Total 1440 555 Output Total 875 1000 Balance 565 -445 Weight 111.4 kg 110.1 kg General appearance: PRESENT: no acute distress, morbidly obese Head exam: PRESENT: atraumatic Eye exam: PRESENT: PERRLA Mouth exam: PRESENT: moist, tongue midline Teeth exam: PRESENT: poor dentation Neck exam: ABSENT: carotid bruit, JVD, lymphadenopathy, thyromegaly Respiratory exam: PRESENT: decreased breath sounds Cardiovascular exam: PRESENT: RRR. ABSENT: diastolic murmur, rubs, systolic murmur Vascular exam: PRESENT: normal capillary refill Rectal exam: PRESENT: deferred Extremities exam: PRESENT: full ROM. ABSENT: calf tenderness, clubbing, pedal edema Neurological exam: PRESENT: alert, awake, oriented to person, oriented to place, oriented to time, oriented to situation, CN II-XII grossly intact. ABSENT: motor sensory deficit Psychiatric exam: PRESENT: appropriate affect, normal mood. ABSENT: homicidal ideation, suicidal ideation Skin exam: PRESENT: dry, intact, warm. ABSENT: cyanosis, rash Results Laboratory Results: WBC 6.7 10^3/uL (4.0-10.5) 12/16/19 06:05 RBC 4.44 10^6/uL (4.35-5.55) 12/16/19 06:05 Hgb 14.1 g/dL (13.5-17.0) 12/16/19 06:05 Hct 40.5 % (37.9-51.0) 12/16/19 06:05 MCV 91 fl (80-97) 12/16/19 06:05 MCH 31.7 pg (27.0-33.4) 12/16/19 06:05 MCHC 34.8 g/dL (32.0-36.0) 12/16/19 06:05 RDW 13.5 % (11.5-14.0) 12/16/19 06:05 Plt Count 135 10^3/uL (150-450) L 12/16/19 06:05 Lymph % (Auto) 39.1 % (13-45) 12/16/19 06:05 [place] % (Auto) 7.9 % (3-13) 12/16/19 06:05 Eos % (Auto) 3.9 % (0-6) 12/16/19 06:05 Baso % (Auto) 0.0 % (0-2) 12/16/19 06:05 Absolute Neuts (auto) 3.3 10^3/uL (1.7-8.2) 12/16/19 06:05 Absolute Lymphs (auto) 2.6 10^3/uL (0.5-4.7) 12/16/19 06:05 Absolute Monos (auto) 0.5 10^3/uL (0.1-1.4) 12/16/19 06:05 Absolute Eos (auto) 0.3 10^3/uL (0.0-0.6) 12/16/19 06:05 Absolute Basos (auto) 0.0 10^3/uL (0.0-0.2) 12/16/19 06:05 Seg Neutrophils % 49.1 % (42-78) 12/16/19 06:05 Sodium 137.6 mmol/L (137-145) 12/15/19 05:35 Potassium 4.0 mmol/L (3.6-5.0) 12/15/19 05:35 Chloride 108 mmol/L (98-107) H 12/15/19 05:35 Carbon Dioxide 23 mmol/L (22-30) 12/15/19 05:35 Anion Gap 7 (5-19) 12/15/19 05:35 BUN 30 mg/dL (7-20) H 12/15/19 05:35 Creatinine 1.22 mg/dL (0.52-1.25) 12/15/19 05:35 Est GFR ( Amer) > 60 (>60) 12/15/19 05:35 Est GFR (MDRD) Non-Af 59 (>60) L 12/15/19 05:35 Glucose 150 mg/dL (75-110) H 12/15/19 05:35 POC Glucose 117 mg/dL (70-110) H 12/16/19 06:18 Hemoglobin A1c % 11.6 % (4.7-6.0) H 12/14/19 08:10 Calcium 8.5 mg/dL (8.4-10.2) 12/15/19 05:35 Magnesium 1.9 mg/dL (1.6-2.3) 12/15/19 05:35 Total Bilirubin 0.9 mg/dL (0.2-1.3) 12/15/19 05:35 Direct Bilirubin 0.5 mg/dL (0.0-0.4) H 12/15/19 05:35 Neonat Total Bilirubin Not Reportable 12/15/19 05:35 Neonat Direct Bilirubin Not Reportable 12/15/19 05:35 Neonat Indirect Bili Not Reportable 12/15/19 05:35 AST 66 U/L (17-59) H 12/15/19 05:35 ALT 44 U/L (<50) 12/15/19 05:35 Alkaline Phosphatase 129 U/L (38-126) H 12/15/19 05:35 Troponin I < 0.012 ng/mL 12/13/19 20:35 Total Protein 5.3 g/dL (6.3-8.2) L 12/15/19 05:35 Albumin 2.5 g/dL (3.5-5.0) L 12/15/19 05:35 Amylase 35 U/L (30-110) 12/13/19 22:15 Lipase 198.4 U/L (23-300) 12/15/19 05:35 Urine Color YELLOW 12/13/19 19:05 Urine Appearance CLEAR 12/13/19 19:05 Urine pH 5.0 (5.0-9.0) 12/13/19 19:05 Ur Specific [place] 1.015 12/13/19 19:05 Urine Protein NEGATIVE mg/dL (NEGATIVE) 12/13/19 19:05 Urine Glucose (UA) >=500 mg/dL (NEGATIVE) H 12/13/19 19:05 Urine Ketones TRACE mg/dL (NEGATIVE) H 12/13/19 19:05 Urine Blood NEGATIVE (NEGATIVE) 12/13/19 19:05 Urine Nitrite NEGATIVE (NEGATIVE) 12/13/19 19:05 Urine Bilirubin NEGATIVE (NEGATIVE) 12/13/19 19:05 Urine Urobilinogen NEGATIVE mg/dL (<2.0) 12/13/19 19:05 Ur Leukocyte Esterase NEGATIVE (NEGATIVE) 12/13/19 19:05 Urine WBC (Auto) 0 /HPF 12/13/19 19:05 U Hyaline Cast (Auto) 2 /LPF 12/13/19 19:05 Urine Mucus (Auto) RARE /LPF 12/13/19 19:05 Urine Creatinine 85.2 mg/dL (22-328) 12/13/19 05:48 Urine Sodium 19 mmol/L (30-90) L 12/13/19 05:48 Urine Ascorbic Acid NEGATIVE (NEGATIVE) 12/13/19 19:05 12/13/19 20:35 Troponin I < 0.012 Impressions: Chest X-Ray 12/13/19 18:46 IMPRESSION: NO ACUTE RADIOGRAPHIC FINDING IN THE CHEST. Abdomen/Pelvis CT 12/14/19 00:00 IMPRESSION: Peripancreatic inflammatory changes new from prior study in consistent with pancreatitis. No focal fluid collections. Prior cholecystectomy. Plan Plan of Treatment: Patient is advised to follow-up with primary care physician next week. Advised to be compliant with his medications. Time Spent: Greater than 30 Minutes Stroke Is this a Stroke Patient?: No Acute Heart Failure Is this a Heart Failure Patient?: No
[2019-12-16] MEDS: LISINOPRIL 10 MG TABLET PO SCH (12:01)
[2019-12-16] MEDS: ASPIRIN 81 MG TABLET, CHEWABLE PO SCH (12:02)
[2019-12-16] MEDS: CLOPIDOGREL BISULFATE 75 MG TABLET PO SCH (12:02)
[2019-12-16] MEDS: CARBAMAZEPINE 200 MG TAB.SR.12H PO SCH (12:02)
[2019-12-16] MEDS: METOPROLOL SUCCINATE 50 MG TAB.SR.24H PO SCH (12:02)
[2019-12-16] MEDS: POTASSIUM CHLORIDE 10 MEQ TABLET.ER PO SCH (12:02)
[2019-12-16] MEDS: COLCHICINE 0.6 MG TABLET PO SCH (12:03)
[2019-12-16 15:42] VITALS: BP 142/66
== END 2019-12-16 14:00 | disposition home or self-care (01) ==
LOC: ER 14:47 → EH 21:55 → 4S 22:51
PROVIDERS: ADMIT Student in an Organized Health Care Education/Training Program; ATTEND Internal Medicine
DX: N17.9 Acute kidney failure, unspecified (principal); E87.1 Hypo-osmolality and hyponatremia; E11.65 Type 2 diabetes mellitus with hyperglycemia; E66.01 Morbid (severe) obesity due to excess calories; Z68.39 Body mass index [BMI] 39.0-39.9, adult; D72.829 Elevated white blood cell count, unspecified; R19.7 Diarrhea, unspecified; K26.9 Duodenal ulcer, unspecified as acute or chronic, without hemorrhage or perforation; K57.90 Diverticulosis of intestine, part unspecified, without perforation or abscess without bleeding; F03.90 Unspecified dementia, unspecified severity, without behavioral disturbance, psychotic disturbance, mood disturbance, and anxiety; F05 Delirium due to known physiological condition; I25.10 Atherosclerotic heart disease of native coronary artery without angina pectoris; I69.351 Hemiplegia and hemiparesis following cerebral infarction affecting right dominant side; M10.9 Gout, unspecified; E78.5 Hyperlipidemia, unspecified; E86.9 Volume depletion, unspecified; I25.2 Old myocardial infarction; Z79.82 Long term (current) use of aspirin; Z79.899 Other long term (current) drug therapy; Z79.02 Long term (current) use of antithrombotics/antiplatelets; Z95.1 Presence of aortocoronary bypass graft; Z90.49 Acquired absence of other specified parts of digestive tract; Z95.5 Presence of coronary angioplasty implant and graft; Z86.19 Personal history of other infectious and parasitic diseases
CPT/HCPCS: 93005; 99285; 96360; 36415 ×4; 82962 ×4; 82150; 83690 ×2; 83735 ×2; 82570; 84300; 85025 ×4; 80053 ×2; 81001; 84484; 83036; 71045; 74176; 93010; G0378 ×5; A9270 ×33; J1644 ×4; J7030; J7120; J1815; J3490

== ENCOUNTER 2020-02-07 13:43 | Emergency (ER) | payer MEDICARE, OTHER ==
--- NOTE | 2020-02-07 14:35 | ER Document Report ---
ED Medical Screen (RME) - General Chief Complaint: Knee Pain Stated Complaint: LEFT KNEE/LEG PAIN,S SWELLING Time Seen by Provider: 02/07/20 14:19 Primary Care Provider: THOMAS PELAEZ MD [Primary Care Provider] - Follow up as needed TRAVEL OUTSIDE OF THE [place] IN LAST 30 DAYS: No - HPI Notes: 02/07/20 14:34 69-year-old male presents to ED for evaluation of increasing left-sided knee pain. Patient reports that his lower calf feels swollen. Patient reports he takes aspirin on a daily basis. Denies trauma or injury. Also reports pain into the patellar region. Notes that the pain radiates up into his thigh. Denies history of DVT or PE. 02/07/20 14:34 - Related Data Allergies/Adverse Reactions: No Known Allergies Allergy (Verified 12/13/19 15:12) Past Medical History - Social History Frequency of alcohol use: None Drug Abuse: None Family history: Reviewed & Not Pertinent - Past Medical History Cardiac Medical History: Reports: Hx Coronary Artery Disease, Hx Heart Attack, Hx Hypercholesterolemia, Hx Hypertension Pulmonary Medical History: Reports: Hx Asthma - HX, Hx Sleep Apnea - cpap did not help Denies: Hx Bronchitis, Hx COPD, Hx Pneumonia, Hx Tuberculosis Neurological Medical History: Reports: Hx Cerebrovascular Accident - R SIDE WEAKNESS. Denies: Hx Seizures Endocrine Medical History: Reports: Hx Diabetes Mellitus Type 2. Denies: Hx Diabetes Mellitus Type 1, Hx Hyperthyroidism, Hx Hypothyroidism Renal/ Medical History: Denies: Hx Peritoneal Dialysis GI Medical History: Reports: Hx Gastroesophageal Reflux Disease. Denies: Hx Cirrhosis, Hx Crohn's Disease, Hx Hepatitis, Hx Hiatal Hernia, Hx Ulcer, Hx Ulcerative Colitis Musculoskeltal Medical History: Reports Hx Arthritis - GENERALIZED, Denies Hx Fibromyalgia, Reports Hx Gout Skin Medical History: Reports Hx Cellulitis - Lower extremity cellulitis due to chronic edema, Denies Hx Eczema, Denies Hx Psoriasis Psychiatric Medical History: Denies: Hx Depression Traumatic Medical History: Reports: Hx Fractures - right gallegos Infectious Medical History: Reports: Hx C-Diff. Denies: Hx Hepatitis Past Surgical History: Reports: Hx Appendectomy, Hx Cardiac Catheterization, Hx Cholecystectomy, Hx Coronary Artery Bypass Graft - 5 vessels, Hx Coronary Stent, Hx Open Heart Surgery - STENT bypass. Denies: Hx Pacemaker - Immunizations Hx Diphtheria, Pertussis, Tetanus Vaccination: No Physical Exam - Vital signs Vitals: Temp Pulse Resp BP Pulse Ox 98.4 F 92 20 135/57 H 97 02/07/20 13:49 02/07/20 13:49 02/07/20 13:49 02/07/20 13:49 02/07/20 13:49 General: No acute distress. Alert and oriented x3. Sitting comfortably in a stretcher. Heart: Regular rate and rhythm. S1,S2. No murmurs, rubs, or gallops. Lungs: Clear to ausculation bilaterally. No wheezes, rhonchi, rales. Equal chest expansion. No retractions. Abdomen: Soft, nontender to palpation, nondistended. Positive bowel sounds in all 4 quadrants. No hepatosplenomegaly. No masses. No CVA tenderness bilaterally. Neuro: GCS 15. Moving all extremities without discomfort. Extremities: Left calf tenderness and edema. No cyanosis or clubbing. Radial and pedal pulses 2+ bilaterally. Brisk capillary refill. Psych: Mood and affect appropriate. Course - Vital Signs Vital signs: Temp Pulse Resp BP Pulse Ox 98.4 F 92 20 135/57 H 97 02/07/20 13:49 02/07/20 13:49 02/07/20 13:49 02/07/20 13:49 02/07/20 13:49 Doctor's Discharge - Discharge Referrals: THOMAS PELAEZ MD [Primary Care Provider] - Follow up as needed
--- NOTE | 2020-02-07 15:26 | RADIOLOGY REPORT (SQ) ---
EXAM DESCRIPTION: KNEE LEFT 4 VIEW IMAGES COMPLETED DATE/TIME: 02/07/2020 12:11 pm REASON FOR STUDY: pain COMPARISON: None. NUMBER OF VIEWS: Four views. TECHNIQUE: AP, lateral, and both oblique radiographic images acquired of the left knee. LIMITATIONS: None. FINDINGS: MINERALIZATION: Normal. BONES: There is some fragmentation along the inferior aspect of the patella which could be due to age -indeterminate injury. Suggestive of acute component on oblique views. JOINT: Small joint effusion. Mild degenerative changes predominantly involving the medial and patell ofemoral compartments with joint space narrowing and bony spurring. SOFT TISSUES: No soft tissue swelling. Multiple medial surgical clips. OTHER: No other significant finding. IMPRESSION: There is some fragmentation along the inferior aspect of the patella which could be due to an age-indeterminate injury. Small joint effusion. TECHNICAL DOCUMENTATION: JOB ID: [id number] 2010 [employer]- All Rights Reserved Reading location - IP/workstation name: [email or web address]
--- NOTE | 2020-02-07 16:35 | RADIOLOGY REPORT (SQ) ---
EXAM DESCRIPTION: VENOUS UNILATERAL LOWER IMAGES COMPLETED DATE/TIME: 02/07/2020 4:25 pm REASON FOR STUDY: left lower leg swelling COMPARISON: None. TECHNIQUE: Dynamic and static oliva scale and color images acquired of the left leg venous system. Se lected spectral images acquired with additional compression and augmentation maneuvers. The contralat eral common femoral vein and saphenofemoral junction were also imaged. Images stored on PACS. LIMITATIONS: None. FINDINGS: COMMON FEMORAL: Normal phasicity, compression and augmentation. No visualized echogenic ma terial on oliva scale. No defects on color images. FEMORAL: Normal compression and augmentation. No visualized echogenic material on oliva scale. No defe cts on color images. POPLITEAL: Normal compression, augmentation. No visualized echogenic material on oliva scale. No defec ts on color images. CALF VESSELS: Normal compression, augmentation. No visualized echogenic material on oliva scale. No de fects on color images. GSV and SSV: Normal compression, augmentation. No visualized echogenic material on oliva scale. No def ects on color images. ANY DEEP VENOUS INSUFFICIENCY: Not evaluated. ANY EVIDENCE OF POPLITEAL CYST: No. OTHER: No other significant finding. CONTRALATERAL COMMON FEMORAL VEIN AND SAPHENOFEMORAL JUNCTION: Normal phasicity, compression and augmentation. No visualized echogenic material on oliva scale. No de fects on color images. IMPRESSION: NO EVIDENCE DVT OR SVT IN THE LEFT LEG. TECHNICAL DOCUMENTATION: JOB ID: [id number] 2010 [employer]- All Rights Reserved Reading location - IP/workstation name: [email or web address]
[2020-02-07] MEDS ORDERED: ACETAMINOPHEN 325 MG TABLET PO ONE ×2 (18:32→20:23)
--- NOTE | 2020-02-07 20:08 | ER Document Report ---
HPI - HPI Time Seen by Provider: 02/07/20 14:19 Pain Level: 4 Context: Patient is a 69-year-old male with a past medical history of gout who presents emergency department with left knee pain. He denies any injury. Patient states that over the last few days, he has had increased knee pain. States that he is normally able to walk, but the pain has gone to severe.Patient has had a past medical history of diabetes, cellulitis, right lower extremity wound, and hypert ension. - ROS Systems Reviewed and Negative: Yes All other systems reviewed and negative - CONSTITUTIONAL Constitutional: DENIES: Fever, Chills - CARDIOVASCULAR Cardiovascular: DENIES: Chest pain - RESPIRATORY Respiratory: DENIES: Trouble Breathing, Coughing - MUSCULOSKELETAL Musculoskeletal: REPORTS: Extremity pain - Left knee, Swelling - Lower extremity - DERM Skin Color: Normal Skin Problems: None Past Medical History - General Information source: Patient - Social History Smoking Status: Never Smoker Frequency of alcohol use: None Drug Abuse: None Family History: CAD, DM, Hypertension - Past Medical History Cardiac Medical History: Reports: Hx Coronary Artery Disease, Hx Heart Attack, Hx Hypercholesterolemia, Hx Hypertension Pulmonary Medical History: Reports: Hx Asthma - HX, Hx Sleep Apnea - cpap did not help Denies: Hx Bronchitis, Hx COPD, Hx Pneumonia, Hx Tuberculosis Neurological Medical History: Reports: Hx Cerebrovascular Accident - R SIDE WEAKNESS. Denies: Hx Seizures Endocrine Medical History: Reports: Hx Diabetes Mellitus Type 2. Denies: Hx Diabetes Mellitus Type 1, Hx Hyperthyroidism, Hx Hypothyroidism Renal/ Medical History: Denies: Hx Peritoneal Dialysis GI Medical History: Reports: Hx Gastroesophageal Reflux Disease. Denies: Hx Cirrhosis, Hx Crohn's Disease, Hx Hepatitis, Hx Hiatal Hernia, Hx Ulcer, Hx Ulcerative Colitis Musculoskeletal Medical History: Reports Hx Arthritis - GENERALIZED, Denies Hx Fibromyalgia, Reports Hx Gout Skin Medical History: Reports Hx Cellulitis - Lower extremity cellulitis due to chronic edema, Denies Hx Eczema, Denies Hx Psoriasis Psychiatric Medical History: Denies: Hx Depression Traumatic Medical History: Reports: Hx Fractures - right gallegos Infectious Medical History: Reports: Hx C-Diff. Denies: Hx Hepatitis Past Surgical History: Reports: Hx Appendectomy, Hx Cardiac Catheterization, Hx Cholecystectomy, Hx Coronary Artery Bypass Graft - 5 vessels, Hx Coronary Stent, Hx Open Heart Surgery - STENT bypass. Denies: Hx Pacemaker - Immunizations Hx Diphtheria, Pertussis, Tetanus Vaccination: No Hx Pneumococcal Vaccination: 12/22/16 Vertical Provider Document - CONSTITUTIONAL Agree With Documented VS: Yes Exam Limitations: No Limitations General Appearance: Mild Distress, Obese - INFECTION CONTROL TRAVEL OUTSIDE OF THE [place] IN LAST 30 DAYS: No - HEENT HEENT: Atraumatic, Normocephalic - NECK Neck: Normal Inspection - RESPIRATORY Respiratory: No Respiratory Distress - CARDIOVASCULAR Cardiovascular: Regular Rate, Regular Rhythm Pulses: Normal: Posterior tibial, Dorsalis pedis - MUSCULOSKELETAL/EXTREMETIES Musculoskeletal/Extremeties: Tender - Left anterior inferior knee, Edema - Left lower extremity. negative: FROM - Decreased to left knee - NEURO Level of Consciousness: Awake, Alert, Appropriate Motor/Sensory: No Motor Deficit, No Sensory Deficit - DERM Integumentary: Warm, Dry, No Rash Course - Re-evaluation Re-evalutation: 02/07/20 20:27 Patient has a fragmentation along the inferior aspect of the patella noted on x- ray, which is consistent with his physical exam. He also has a slight small joint effusion, which is most likely due to his gout. Venous Doppler study does not show a DVT. We will give the patient a dose of colchicine and [place] for pain. Will reevaluate. - Vital Signs Vital signs: Temp Pulse Resp BP Pulse Ox 98.4 F 92 20 135/57 H 97 02/07/20 13:49 02/07/20 13:49 02/07/20 13:49 02/07/20 13:49 02/07/20 13:49 - Laboratory Results Critical Laboratory Results Reviewed: No Critical Results - Radiology Results Critical Radiology Results Reviewed: No Critical Results Discharge - Discharge Clinical Impression: Left knee pain Qualifiers: Chronicity: acute Qualified Code(s): M25.562 - Pain in left knee Gout Qualifiers: Gout site: knee Gout etiology: unspecified cause Chronicity: acute Laterality: left Qualified Code(s): M10.9 - Gout, unspecified Condition: Stable Disposition: HOME, SELF-CARE Instructions: Use of Crutches ([facility]) Additional Instructions: You were seen today in the emergency department for left knee pain. You do not have any blood clot in your leg. You do have fragments at your kneecap, which is called the patella. This was noted on your x-ray. Follow-up with orthopedics in regards to this issue. You also are having an episode of gout. Take the colchicine as prescribed. Prescriptions: Colchicine 0.6 mg PO DAILYP PRN #3 tablet PRN Reason: Referrals: THOMAS PELAEZ MD [Primary Care Provider] - Follow up in 3-5 days TERESA HIDALGO MD [ACTIVE STAFF] - Follow up in 3-5 days
[2020-02-07] MEDS ORDERED: COLCHICINE 0.6 MG TABLET PO ONE ×2 (20:21→22:03)
[2020-02-07] MEDS ORDERED: HYDROCODONE/ACETAMINOPHEN 5-325 MG TABLET PO ONE (20:23)
[2020-02-07 20:45] VITALS: BP 131/57
== END 2020-02-07 22:30 | disposition home or self-care (01) ==
LOC: ER 13:43
DX: M10.9 Gout, unspecified (principal); M25.562 Pain in left knee; M25.462 Effusion, left knee; E11.9 Type 2 diabetes mellitus without complications; I10 Essential (primary) hypertension; I25.10 Atherosclerotic heart disease of native coronary artery without angina pectoris; J45.909 Unspecified asthma, uncomplicated; Z95.5 Presence of coronary angioplasty implant and graft; Z95.1 Presence of aortocoronary bypass graft
CPT/HCPCS: 99284; 93971; 73564; A9270 ×3

== ENCOUNTER 2020-02-10 10:04 | Inpatient (IN) | payer MEDICARE, OTHER ==
--- NOTE | 2020-02-10 12:28 | ER Document Report ---
ED General - General TRAVEL OUTSIDE OF THE [place] IN LAST 30 DAYS: No <YOSSI RODGERS - Last Filed: 02/11/20 18:37> <SISSY ALFORD - Last Filed: 02/12/20 19:24> - General Chief Complaint: Diarrhea Stated Complaint: LEG PAIN, DIARRHEA Time Seen by Provider: 02/10/20 12:27 Primary Care Provider: THOMAS MCDONOUGH MD [Primary Care Provider] - Follow up as needed - [facility] Notes: 69-year-old male with past medical history for stroke with residual right-sided weakness, PA, CABG to the emergency department via EMS with complaints of diarr hea, weakness, leg swelling. Apparently for the past week the patient has been getting progressively worse with significant amounts of diarrhea. The patient cannot give a lot of information but states that he has been feeling pretty badly. When speaking to his , Reny, she states that he has been having 10 episodes of diarrhea every day. She states been profuse and very smelly. She states that he has been getting progressively weak so much so that he is not been walking this week. Usually uses a walker. She states that today she could not get him out of the recliner and he had so much diarrhea over the recliner and she had to call the medics. She states that she has since thrown the recliner out because she cannot get clean because of the amount of stool that was on it. She denies any fevers, chills, chest pain, shortness of breath. The patient states that he also has leg swelling which has been getting a little bit worse over the past several days. He has been told that he has gout in his leg and he was actually seen 3 days ago for possible gout in the leg as well. S tarted on colchicine. He states his been taking that with little relief. He also states that he had a Doppler study at that time which was negative for DVT. He does take a blood thinner. He takes Plavix 75 mg daily. His primary care physician is Dr. Mcdonough. (YOSSI RODGERS) - Related Data Allergies/Adverse Reactions: No Known Allergies Allergy (Verified 12/13/19 15:12) Past Medical History - General Information source: Patient, Relative - - Social History Smoking Status: Never Smoker Frequency of alcohol use: None Drug Abuse: None Family History: CAD, DM, Hypertension Patient has homicidal ideation: No - Past Medical History Cardiac Medical History: Reports: Hx Coronary Artery Disease, Hx Heart Attack, Hx Hypercholesterolemia, Hx Hypertension Pulmonary Medical History: Reports: Hx Asthma - HX, Hx Sleep Apnea - cpap did not help Denies: Hx Bronchitis, Hx COPD, Hx Pneumonia, Hx Tuberculosis Neurological Medical History: Reports: Hx Cerebrovascular Accident - R SIDE WEAKNESS. Denies: Hx Seizures Endocrine Medical History: Reports: Hx Diabetes Mellitus Type 2. Denies: Hx Diabetes Mellitus Type 1, Hx Hyperthyroidism, Hx Hypothyroidism Renal/ Medical History: Denies: Hx Peritoneal Dialysis GI Medical History: Reports: Hx Gastroesophageal Reflux Disease. Denies: Hx Cirrhosis, Hx Crohn's Disease, Hx Hepatitis, Hx Hiatal Hernia, Hx Ulcer, Hx Ulcerative Colitis Musculoskeletal Medical History: Reports Hx Arthritis - GENERALIZED, Denies Hx Fibromyalgia, Reports Hx Gout Skin Medical History: Reports Hx Cellulitis - Lower extremity cellulitis due to chronic edema, Denies Hx Eczema, Denies Hx Psoriasis Psychiatric Medical History: Denies: Hx Depression Traumatic Medical History: Reports: Hx Fractures - right gallegos Infectious Medical History: Reports: Hx C-Diff. Denies: Hx Hepatitis Past Surgical History: Reports: Hx Appendectomy, Hx Cardiac Catheterization, Hx Cholecystectomy, Hx Coronary Artery Bypass Graft - 5 vessels, Hx Coronary Stent, Hx Open Heart Surgery - STENT bypass. Denies: Hx Pacemaker - Immunizations Hx Diphtheria, Pertussis, Tetanus Vaccination: No Hx Pneumococcal Vaccination: 12/22/16 <YOSSI RODGERS - Last Filed: 02/11/20 18:37> Review of Systems - Review of Systems Constitutional: Weakness. denies: Chills, Fever EENT: No symptoms reported Cardiovascular: denies: Chest pain, Palpitations, Orthopnea, Dyspnea, Syncope, Dizziness Respiratory: denies: Cough, Short of breath Gastrointestinal: Abdominal pain, Diarrhea, Nausea Genitourinary: No symptoms reported Musculoskeletal: See HPI, Leg swelling Skin: No symptoms reported Hematologic/Lymphatic: No symptoms reported Neurological/Psychological: Weakness -: Yes All other systems reviewed and negative <YOSSI RODGERS - Last Filed: 02/11/20 18:37> Physical Exam - Vital signs Interpretation: Hypertensive <YOSSI RODGERS - Last Filed: 02/11/20 18:37> - Vital signs Vitals: Temp Pulse Resp BP Pulse Ox 98.7 F 83 20 141/55 H 98 02/10/20 10:10 02/10/20 10:10 02/10/20 10:10 02/10/20 10:10 02/10/20 10:10 - Notes Notes: PHYSICAL EXAMINATION: GENERAL: chronically ill-appearing gentleman in no acute distress HEAD: Atraumatic, normocephalic. EYES: Pupils equal round and reactive to light, extraocular movements intact, sclera anicteric, conjunctiva are normal. ENT: nares patent, oropharynx clear without exudates. Moist mucous membranes. TMs clear bilaterally NECK: Normal range of motion, supple without lymphadenopathy LUNGS: Breath sounds clear to auscultation bilaterally and equal. No wheezes rales or rhonchi. HEART: Regular rate and rhythm without murmurs, bilateral lower extremity with 2+ pitting edema. There is no erythema. There is venous stasis changes to his left lower extremity and a diabetic foot ulcer to the right foot. ABDOMEN: Soft, obese, mild diffuse tenderness, normoactive bowel sounds. No guarding, no rebound. No masses appreciated. EXTREMITIES: Normal range of motion. No cyanosis. There is significant pain with movement of the left leg, particularly at the knee and hip. There is no erythema, streaking lymphangitis, sloughing of the skin, gross deformity. There is pitting edema to the bilateral lower extremities NEUROLOGICAL: Moves all extremities spontaneously and on command. No pronator drift. Patient has pain with leg movement so he has difficulty performing leg drift. He does have some residual right-sided weakness. He states this is his normal baseline alert and oriented times, 4. PSYCH: Normal mood, normal affect. SKIN: Warm, Dry, normal turgor, no rashes or lesions noted. (YOSSI RODGERS) Course - Laboratory Results Result Diagrams: 02/11/20 09:16 02/11/20 09:16 Critical Laboratory Results Reviewed: Yes Attending or Supervising Physician who Reviewed Labs: DIANA LUO JR - Radiology Results Critical Radiology Results Reviewed: No Critical Results <YOSSI RODGERS - Last Filed: 02/11/20 18:37> - Laboratory Results Result Diagrams: 02/12/20 17:17 02/12/20 17:17 <SISSY ALFORD - Last Filed: 02/12/20 19:24> - Re-evaluation Re-evalutation: 02/10/20 18:11 Discussed patient with my ER attending, Dr. Luo. He thinks that I should talk to the hospital about potentially admitting the patient for his electrolyte derailment and acute kidney injury. We both agree that were very suspicious with the diarrhea for possible C. difficile. Unfortunately has not been able to get a stool sample from the patient since he has been here. I spoke with Dr. Santana, hospitalist. We discussed electrolyte derailment and the patient's acute kidney injury. We also discussed the patient's weakness and his decline in his function for the past week. Dr. Santana does not think that the patient's electrolytes around and his significant enough to warrant inpatient admission. His suggestion is to replete the magnesium and give gentle fluids. He also suggested that the patient is getting weak as reported that we should discuss his case with field nurse case manager for possible placement. I did discuss the patient's results with him and talk to him about how I talked to our hospitalist team. I advised him that at this time does not seem that he meets admission criteria. However I did talk to him about possible placement with our field nurse case manager' help. He does feel like he is too weak to go home. he is amenable to potentially getting placement for this. I will also call his and discuss with her. I also advised that having a stool sample would be very helpful. 02/10/20 20:31 Spoke with Melany from discharge planning. I have asked her about placement for this patient since he has gotten progressively more weak but does not meet admission criteria for the hospitalist. She will start some paperwork and see the patient in the morning to see if she can get him placement. I updated the patient plus his and they both agree with the plan. Turn the patient over to the nurse practitioner Glo Romo she will monitor the patient and watch him overnight. She is aware that a stool sample is still needed. 02/11/20 08:41 Assumed care of patient this morning. Rounded on him. He states that he does pretty well except for when he moves when his left knee really hurts him. The knee is not tender to palpation, hot or red. He had a DVT study 4 days ago that was negative. I doubt that this is a gallop situation since it is not tender to palpation. There was a possible age-indeterminate patellar fragment on his knee x-ray several days ago but he denies any falls. Plan will be to send him to CT to evaluate for an occult fracture that is giving him all this pain. I have also spoken with our field nurse case manager, Melany this morning. She is looking for a rehab bed for him. I think this is pretty appropriate for the sternum given the fact that he has become pretty much immobile and cannot get up and move around at all. Concerned that if he goes home, even with home health, that he will return worse. He agrees with possible placement at a rehab bed. We will continue to monitor him closely. He is aware that he may get a CT of his knee as well. Of note, he has had no diarrhea since arrival. We have not been able to get a stool specimen. We will continue to try to get that if he does have a bowel movement. It is reassuring that the diarrhea has gotten better but would prefer to have a stool sample to test. 02/11/20 09:[address] of the lower extremity. There is no occult fracture. There is a joint effusion. There is no drainable fluid-filled collection. We will continue forward with our rehab plan. 02/11/20 18:37 Spoke with Parag Iglesias about the patient. She has a request out for a bed for the patient for rehab. Pending return call. We will continue to monitor the patient. (YOSSI RODGERS) - Vital Signs Vital signs: Temp Pulse Resp BP Pulse Ox 102.3 F H 86 17 164/46 H 97 02/12/20 16:01 02/12/20 10:44 02/12/20 10:44 02/12/20 10:44 02/12/20 10:44 - Laboratory Results Laboratory Results Interpreted: 02/10/20 02/10/20 02/10/20 10:20 13:20 13:20 WBC 11.1 H RBC 3.94 L Hgb 12.5 L Hct 36.8 L Sodium 129.8 L Chloride 95 L BUN 29 H Creatinine 1.61 H Est GFR ( Amer) 52 L Est GFR (MDRD) Non-Af 43 L Glucose 268 H POC Glucose Uric Acid Calcium 8.2 L Magnesium 1.5 L NT-Pro-B Natriuret Pep 293 H Total Protein 5.5 L Albumin 2.7 L Urine Glucose (UA) Urine Ketones 02/10/20 02/10/20 02/11/20 14:50 20:39 08:24 WBC RBC Hgb Hct Sodium Chloride BUN Creatinine Est GFR ( Amer) Est GFR (MDRD) Non-Af Glucose POC Glucose 282 H 306 H Uric Acid Calcium Magnesium NT-Pro-B Natriuret Pep Total Protein Albumin Urine Glucose (UA) >=500 H Urine Ketones TRACE H 02/11/20 02/11/20 02/11/20 09:16 09:16 13:01 WBC RBC 3.57 L Hgb 11.4 L Hct 32.9 L Sodium 134.3 L Chloride BUN 23 H Creatinine Est GFR ( Amer) Est GFR (MDRD) Non-Af Glucose 299 H POC Glucose 341 H Uric Acid Calcium Magnesium NT-Pro-B Natriuret Pep Total Protein Albumin Urine Glucose (UA) Urine Ketones 02/11/20 02/12/20 02/12/20 17:08 08:29 13:31 WBC RBC Hgb Hct Sodium Chloride BUN Creatinine Est GFR ( Amer) Est GFR (MDRD) Non-Af Glucose POC Glucose 307 H 330 H 275 H Uric Acid Calcium Magnesium NT-Pro-B Natriuret Pep Total Protein Albumin Urine Glucose (UA) Urine Ketones 02/12/20 02/12/20 02/12/20 17:15 17:17 17:17 WBC RBC 3.40 L Hgb 10.8 L Hct 31.5 L Sodium 132.1 L Chloride BUN Creatinine Est GFR ( Amer) Est GFR (MDRD) Non-Af Glucose 380 H POC Glucose 398 H Uric Acid Calcium 8.0 L Magnesium NT-Pro-B Natriuret Pep Total Protein Albumin Urine Glucose (UA) Urine Ketones 02/12/20 17:17 WBC RBC Hgb Hct Sodium Chloride BUN Creatinine Est GFR ( Amer) Est GFR (MDRD) Non-Af Glucose POC Glucose Uric Acid 9.3 H Calcium Magnesium NT-Pro-B Natriuret Pep Total Protein Albumin Urine Glucose (UA) Urine Ketones - Radiology Results Radiology Results Interpreted: 02/10/20 20:29 Chest X-Ray 02/10/20 13:09 IMPRESSION: No acute radiographic abnormality or significant interval change. Abdomen/Pelvis CT 02/10/20 14:54 IMPRESSION: 1. Interval resolution of previously demonstrated pancreatitis. 2. No new acute abnormality on noncontrast CT of the abdomen and pelvis. 3. Nonobstructing right renal calculus. Head CT 02/10/20 14:56 IMPRESSION: NO ACUTE INTRACRANIAL FINDINGS. EVIDENCE OF ACUTE STROKE: NO. (YOSSI RODGERS) - EKG Interpretation by Me Additional EKG results interpreted by me: 02/10/20 Rate: 81 Rhythm: Sinus Interpretation: No STEMI, incomplete right bundle branch block, nonspecific T wave abnormalities, slightly low voltage, not significantly different from December 13, 2019 (YOSSI RODGERS) Discharge <YOSSI RODGERS - Last Filed: 02/11/20 18:37> - Discharge Admitting Provider: Sean (Hospitalist) Unit Admitted: Telemetry <SISSY ALFORD - Last Filed: 02/12/20 19:24> - Discharge Clinical Impression: Hypomagnesemia, Hyponatremia, Acute kidney injury, Weakness Uncontrolled diabetes mellitus Qualifiers: Diabetes mellitus type: type 2 Glycemic state: with hyperglycemia Qualified Code(s): E11.65 - Type 2 diabetes mellitus with hyperglycemia Fever Qualifiers: Fever type: due to other condition Qualified Code(s): R50.81 - Fever presenting with conditions classified elsewhere Condition: Serious Disposition: ADMITTED INPATIENT Referrals: THOMAS MCDONOUGH MD [Primary Care Provider] - Follow up as needed
[2020-02-10 12:59] LABS: ABSOLUTE EOSINOPHILS # (AUTO) 0.1 10^3/uL (0.0-0.6); ABSOLUTE LYMPHOCYTES (AUTO) 2.1 10^3/uL (0.5-4.7); ABSOLUTE MONOCYTES (AUTO) 0.8 10^3/uL (0.1-1.4); BASOPHILS % (AUTO) 0.1 % (0-2); EOSINOPHILS % (AUTO) 1.3 % (0-6); HEMATOCRIT 36.8 % (37.9-51.0); HEMOGLOBIN 12.5 g/dL (13.5-17.0); LYMPHOCYTES % (AUTO) 19.2 % (13-45); MEAN CORPUSCULAR HEMOGLOBIN 31.8 pg (27.0-33.4); MEAN CORPUSCULAR HGB CONC 34.1 g/dL (32.0-36.0); MEAN CORPUSCULAR VOLUME 93 fl (80-97); MONOCYTES % (AUTO) 7.4 % (3-13); PLATELET COUNT 264 10^3/uL (150-450); RED BLOOD COUNT 3.94 10^6/uL (4.35-5.55); RED CELL DISTRIBUTION WIDTH 13.8 % (11.5-14.0); TOTAL CELLS COUNTED % (AUTO) 100 %; WHITE BLOOD COUNT 11.1 10^3/uL (4.0-10.5)
[2020-02-10] MEDS ORDERED: ONDANSETRON HCL INJ/PF 4 MG/2 ML SDV IV ONE (13:12)
[2020-02-10 14:02] LABS: ALBUMIN 2.7 g/dL (3.5-5.0); ALKALINE PHOSPHATASE 76 U/L (38-126); ANION GAP 8 (5-19); ASPARTATE AMINO TRANSFERASE 20 U/L (17-59); BILIRUBIN,DIRECT 0.3 mg/dL (0.0-0.4); BILIRUBIN,TOTAL 0.5 mg/dL (0.2-1.3); BLOOD UREA NITROGEN 29 mg/dL (7-20); CALCIUM 8.2 mg/dL (8.4-10.2); CARBON DIOXIDE 27 mmol/L (22-30); CHLORIDE 95 mmol/L (98-107); GLUCOSE 268 mg/dL (75-110); POTASSIUM 3.7 mmol/L (3.6-5.0); TOTAL PROTEIN 5.5 g/dL (6.3-8.2)
--- NOTE | 2020-02-10 14:03 | RADIOLOGY REPORT (SQ) ---
EXAM DESCRIPTION: CHEST SINGLE VIEW IMAGES COMPLETED DATE/TIME: 02/10/2020 10:39 am REASON FOR STUDY: weakness COMPARISON: 12/13/2019 EXAM PARAMETERS: NUMBER OF VIEWS: One view. TECHNIQUE: Single frontal radiographic view of the chest acquired. RADIATION DOSE: NA LIMITATIONS: None. FINDINGS: LUNGS AND PLEURA: No opacities, masses or pneumothorax. No pleural effusion. MEDIASTINUM AND HILAR STRUCTURES: No masses. Contour normal. HEART AND VASCULAR STRUCTURES: Heart normal in size. Normal vasculature. BONES: No acute findings. HARDWARE: Stable sternotomy wires. OTHER: No other significant finding. IMPRESSION: No acute radiographic abnormality or significant interval change. TECHNICAL DOCUMENTATION: JOB ID: [id number] 2010 [employer]- All Rights Reserved Reading location - IP/workstation name: [email or web address]
[2020-02-10 14:13] LABS: NT PRO BNP 293 pg/mL (<125)
[2020-02-10 14:15] LABS: TROPONIN I < 0.012 ng/mL
[2020-02-10] MEDS ORDERED: MORPHINE SULFATE 10 MG/ML INJ IV ONE (14:55)
[2020-02-10 15:17] LABS: APPEARANCE,URINE SLIGHTLY-CLOUDY; BILIRUBIN,URINE NEGATIVE (NEGATIVE); COLOR,URINE YELLOW; GLUCOSE, URINE >=500 mg/dL (NEGATIVE); KETONES,URINE TRACE mg/dL (NEGATIVE); LEUKOCYTE ESTERASE,URINE NEGATIVE (NEGATIVE); NITRITE,URINE NEGATIVE (NEGATIVE); PROTEIN,URINE NEGATIVE (NEGATIVE); URINE SPECIFIC GRAVITY 1.015; UROBILINOGEN,URINE NEGATIVE mg/dL (<2.0)
--- NOTE | 2020-02-10 15:31 | RADIOLOGY REPORT (SQ) ---
EXAM DESCRIPTION: CT HEAD WITHOUT IMAGES COMPLETED DATE/TIME: 02/10/2020 3:17 pm REASON FOR STUDY: not able to ambulate for one week COMPARISON: 10/20/2019 TECHNIQUE: Axial images acquired through the brain without intravenous contrast. Images reviewed wit h bone, brain and subdural windows. Images stored on PACS. All CT scanners at this facility use dose modulation, iterative reconstruction, and/or weight based d osing when appropriate to reduce radiation dose to as low as reasonably achievable (ALARA). [facility]: Dose Right [facility]: CareDose [facility]: Dose Right [facility]: Teradose 4D [facility]: Smart [employer] RADIATION DOSE: CT Rad equipment meets quality standard of care and radiation dose reduction techniq ues were employed. CTDIvol: 48.9 mGy. DLP: 935 mGy-cm.. LIMITATIONS: None. FINDINGS: VENTRICLES: Normal size and contour. CEREBRUM: No masses. No hemorrhage. No midline shift. Stable appearance of the white matter with old left posterior temporal and occipital infarct and small left frontal lobe convexity cortical infarct . No evidence for acute infarction. CEREBELLUM: No masses. No hemorrhage. No alteration of density. No evidence for acute infarction. EXTRA-AXIAL SPACES: No fluid collections. ORBITS AND GLOBE: No intra- or extraconal masses. Normal contour of globe without masses. CALVARIUM: No fracture. PARANASAL SINUSES: No fluid or mucosal thickening. SOFT TISSUES: No mass or hematoma. OTHER: No other significant finding. IMPRESSION: NO ACUTE INTRACRANIAL FINDINGS. EVIDENCE OF ACUTE STROKE: NO. TECHNICAL DOCUMENTATION: JOB ID: [id number] Quality ID # [id number]: Final reports with documentation of one or more dose reduction techniques (e.g., Au tomated exposure control, adjustment of the mA and/or kV according to patient size, use of iterative reconstruction technique) 2010 [employer]- All Rights Reserved Reading location - IP/workstation name: [email or web address]
--- NOTE | 2020-02-10 15:42 | RADIOLOGY REPORT (SQ) ---
EXAM DESCRIPTION: CT ABD/PELVIS NO ORAL OR IV IMAGES COMPLETED DATE/TIME: 02/10/2020 12:17 pm REASON FOR STUDY: profuse diarrhea COMPARISON: 12/14/2019 TECHNIQUE: CT scan of the abdomen and pelvis performed without intravenous or oral contrast. Images reviewed with lung, soft tissue, and bone windows. Reconstructed coronal and sagittal MPR images revi ewed. All images stored on PACS. All CT scanners at this facility use dose modulation, iterative reconstruction, and/or weight based d osing when appropriate to reduce radiation dose to as low as reasonably achievable (ALARA). [facility]: Dose Right [facility]: CareDose [facility]: Dose Right [facility]: Teradose 4D [facility]: Smart [employer] RADIATION DOSE: CT Rad equipment meets quality standard of care and radiation dose reduction techniq ues were employed. CTDIvol: 21.9 mGy. DLP: 1212 mGy-cm.mGy. LIMITATIONS: Suboptimal evaluation of the vasculature and solid organs due to lack of IV contrast. FINDINGS: LOWER CHEST: Some minimal basilar atelectasis or scarring. NON-CONTRASTED LIVER, SPLEEN, ADRENALS: Evaluation limited by lack of IV contrast. No identified sign ificant masses. PANCREAS: Near complete resolution of peripancreatic fat stranding seen on prior examination. No new acute abnormality. GALLBLADDER: Surgically absent. RIGHT KIDNEY AND URETER: No suspicious masses. Assessment limited by lack of IV contrast. Punctate nonobstructing calculus upper pole right kidney. No hydronephrosis or hydroureter. LEFT KIDNEY AND URETER: No suspicious masses. Assessment limited by lack of IV contrast. No signifi cant calcifications. No hydronephrosis or hydroureter. AORTA AND RETROPERITONEUM: No aneurysm. No retroperitoneal masses or adenopathy. BOWEL AND PERITONEAL CAVITY: No obvious masses or inflammatory changes. No free fluid. Colon diverti culosis APPENDIX: Not visualized. PELVIS, BLADDER, AND ABDOMINAL WALL:Prostate gland is mildly enlarged. Urinary bladder is underdiste nded with associated wall prominence. BONES: No significant findings. OTHER: No other significant finding. IMPRESSION: 1. Interval resolution of previously demonstrated pancreatitis. 2. No new acute abnormality on noncontrast CT of the abdomen and pelvis. 3. Nonobstructing right renal calculus. COMMENT: Quality ID # [id number]: Final reports with documentation of one or more dose reduction techniques (e.g., Automated exposure control, adjustment of the mA and/or kV according to patient size, use of iterative reconstruction technique) TECHNICAL DOCUMENTATION: JOB ID: [id number] 2010 [employer]- All Rights Reserved Reading location - IP/workstation name: [email or web address]
[2020-02-10] MEDS: MAGNESIUM SULFATE/D5W 1 GM/100 ML RTUPB IV SCH ×2 (17:56→19:04)
[2020-02-10] MEDS ORDERED: NORMAL SALINE 1000 ML 1,000 ML IV ONE (17:58)
[2020-02-10] MEDS ORDERED: DEXTROSE 40% GEL 15 GM TUBE PO PRN ×2 (19:54)
[2020-02-10] MEDS ORDERED: GLUCAGON,HUMAN RECOMB 1 MG INJ IM PRN (19:54)
[2020-02-10] MEDS ORDERED: DEXTROSE 50%-WATER 25 GM/50 ML DISP.SYRIN IV PRN ×2 (19:54)
--- NOTE | 2020-02-10 20:38 | EKG REPORT ---
SEVERITY:- ABNORMAL ECG - SINUS RHYTHM RIGHT BUNDLE BRANCH BLOCK : Confirmed by: Adali Winkler MD 10-Feb-2020 20:37:46
[2020-02-10] MEDS: INSULIN REG, HUMAN 100 UNIT/ML 3 ML VIAL (PYX) SUBCUT SCH (20:48)
[2020-02-10] MEDS: GABAPENTIN 300 MG CAPSULE PO SCH (20:50)
[2020-02-10] MEDS: METOPROLOL SUCCINATE 50 MG TAB.SR.24H PO SCH (22:36)
[2020-02-11] MEDS ORDERED: MORPHINE SULFATE 10 MG/ML INJ IV ONE (04:18)
[2020-02-11] MEDS: INSULIN REG, HUMAN 100 UNIT/ML 3 ML VIAL (PYX) SUBCUT SCH ×3 (09:11→17:25)
--- NOTE | 2020-02-11 09:16 | RADIOLOGY REPORT (SQ) ---
EXAM DESCRIPTION: CT LT LOWER EXTREMITY WITHOUT IMAGES COMPLETED DATE/TIME: 02/11/2020 8:58 am REASON FOR STUDY: severe knee pain with movement, eval for occult f COMPARISON: 2017. TECHNIQUE: Axial imaging performed through the left knee with reformatted coronal and sagittal imagi ng windowed for bone and soft tissues. Images saved to PACS. 3D IMAGING: Were 3D images as MIP, SSD, or volume rendering performed at the work station? No. All CT scanners at this facility use dose modulation, iterative reconstruction, and/or weight based d osing when appropriate to reduce radiation dose to as low as reasonably achievable (ALARA). [facility]: Dose Right [facility]: CareDose [facility]: Dose Right [facility]: Teradose 4D [facility]: Smart [employer] LIMITATIONS: None. RADIATION DOSE: CT Rad equipment meets quality standard of care and radiation dose reduction techniq ues were employed. CTDIvol: 4.7 mGy. DLP: 147 mGy-cm. mGy. FINDINGS: SOFT TISSUES: Joint effusion. Prepatellar/pretibial subcutaneous edema but no extra-artic ular drainable fluid or gross mass. BONES: Osteopenic. No subluxation or dislocation. No acute fracture detected. Chronic calcificatio ns along the inferior patellar pole are unchanged compared to 2017. MINERALIZATION: Osteopenic. OTHER: Degenerative changes, particularly in the medial compartment. IMPRESSION: No evidence of acute fracture. Joint effusion. TECHNICAL DOCUMENTATION: JOB ID: [id number] Quality ID # [id number]: Final reports with documentation of one or more dose reduction techniques (e.g., Au tomated exposure control, adjustment of the mA and/or kV according to patient size, use of iterative reconstruction technique) 2010 [employer]- All Rights Reserved Reading location - IP/workstation name: [email or web address]
[2020-02-11 09:31] LABS: ABSOLUTE EOSINOPHILS # (AUTO) 0.2 10^3/uL (0.0-0.6); ABSOLUTE LYMPHOCYTES (AUTO) 1.4 10^3/uL (0.5-4.7); ABSOLUTE MONOCYTES (AUTO) 0.8 10^3/uL (0.1-1.4); ABSOLUTE NEUT (AUTO) 6.3 10^3/uL (1.7-8.2); BASOPHILS % (AUTO) 0.1 % (0-2); EOSINOPHILS % (AUTO) 2.2 % (0-6); HEMATOCRIT 32.9 % (37.9-51.0); HEMOGLOBIN 11.4 g/dL (13.5-17.0); LYMPHOCYTES % (AUTO) 16.1 % (13-45); MEAN CORPUSCULAR HEMOGLOBIN 31.9 pg (27.0-33.4); MEAN CORPUSCULAR HGB CONC 34.7 g/dL (32.0-36.0); MEAN CORPUSCULAR VOLUME 92 fl (80-97); MONOCYTES % (AUTO) 9.6 % (3-13); PLATELET COUNT 223 10^3/uL (150-450); RED BLOOD COUNT 3.57 10^6/uL (4.35-5.55); RED CELL DISTRIBUTION WIDTH 13.8 % (11.5-14.0); TOTAL CELLS COUNTED % (AUTO) 100 %; WHITE BLOOD COUNT 8.8 10^3/uL (4.0-10.5)
[2020-02-11 09:51] LABS: ANION GAP 9 (5-19); BLOOD UREA NITROGEN 23 mg/dL (7-20); CALCIUM 8.7 mg/dL (8.4-10.2); CARBON DIOXIDE 26 mmol/L (22-30); CHLORIDE 99 mmol/L (98-107); GLUCOSE 299 mg/dL (75-110); POTASSIUM 4.3 mmol/L (3.6-5.0)
[2020-02-11] MEDS: CLOPIDOGREL BISULFATE 75 MG TABLET PO SCH (10:28)
[2020-02-11] MEDS: GABAPENTIN 300 MG CAPSULE PO SCH ×2 (10:28→18:06)
[2020-02-11] MEDS: METOPROLOL SUCCINATE 50 MG TAB.SR.24H PO SCH (10:28)
[2020-02-11] MEDS: CARVEDILOL 12.5 MG TABLET PO SCH ×2 (10:28→18:06)
[2020-02-11] MEDS: SIMVASTATIN 40 MG TABLET PO SCH (10:28)
[2020-02-12] MEDS: METOPROLOL SUCCINATE 50 MG TAB.SR.24H PO SCH ×3 (02:49→22:58)
[2020-02-12] MEDS: INSULIN REG, HUMAN 100 UNIT/ML 3 ML VIAL (PYX) SUBCUT SCH ×3 (08:34→17:26)
[2020-02-12] MEDS ORDERED: LISINOPRIL 10 MG TABLET PO SCH (10:00)
[2020-02-12] MEDS: GABAPENTIN 300 MG CAPSULE PO SCH ×2 (11:09→20:48)
[2020-02-12] MEDS: CARVEDILOL 12.5 MG TABLET PO SCH ×2 (11:09→20:46)
[2020-02-12] MEDS: SIMVASTATIN 40 MG TABLET PO SCH (11:10)
[2020-02-12] MEDS: CLOPIDOGREL BISULFATE 75 MG TABLET PO SCH (11:10)
[2020-02-12] MEDS ORDERED: ACETAMINOPHEN 325 MG SUPP.RECT PR ONE (16:00)
[2020-02-12] MEDS ORDERED: ACETAMINOPHEN 650 MG SUPP.RECT PR ONE (17:06)
--- NOTE | 2020-02-12 17:50 | RADIOLOGY REPORT (SQ) ---
EXAM DESCRIPTION: KUB/ABDOMEN (SINGLE VIEW) IMAGES COMPLETED DATE/TIME: 02/12/2020 5:34 pm REASON FOR STUDY: constipation R19.7 DIARRHEA, UNSPECIFIED E83.42 HYPOMAGNESEMIA E87.1 HYPO-OSMOL ALITY AND HYPONATREMIA COMPARISON: 10/20/2019 NUMBER OF VIEWS: One view. TECHNIQUE: Supine radiographic image of the abdomen acquired. LIMITATIONS: None. FINDINGS: BOWEL GAS PATTERN: Nonobstructive gas pattern. Retained stool. CALCIFICATIONS: No suspicious calcifications. SOFT TISSUES: No gross mass or suggestion of organomegaly. HARDWARE: None in the abdomen. BONES: No acute fracture. No worrisome bone lesions. OTHER: No other significant finding. IMPRESSION: Mild constipation. TECHNICAL DOCUMENTATION: JOB ID: [id number] 2010 [employer]- All Rights Reserved Reading location - IP/workstation name: [email or web address]
[2020-02-12 17:52] LABS: ABSOLUTE EOSINOPHILS # (AUTO) 0.1 10^3/uL (0.0-0.6); ABSOLUTE LYMPHOCYTES (AUTO) 1.4 10^3/uL (0.5-4.7); ABSOLUTE NEUT (AUTO) 7.9 10^3/uL (1.7-8.2); BASOPHILS % (AUTO) 0.1 % (0-2); HEMATOCRIT 31.5 % (37.9-51.0); HEMOGLOBIN 10.8 g/dL (13.5-17.0); LYMPHOCYTES % (AUTO) 13.6 % (13-45); MEAN CORPUSCULAR HEMOGLOBIN 31.6 pg (27.0-33.4); MEAN CORPUSCULAR HGB CONC 34.2 g/dL (32.0-36.0); MEAN CORPUSCULAR VOLUME 92 fl (80-97); MONOCYTES % (AUTO) 9.3 % (3-13); PLATELET COUNT 210 10^3/uL (150-450); RED CELL DISTRIBUTION WIDTH 13.7 % (11.5-14.0); TOTAL CELLS COUNTED % (AUTO) 100 %; WHITE BLOOD COUNT 10.4 10^3/uL (4.0-10.5)
[2020-02-12 18:03] LABS: ANION GAP 5 (5-19); BLOOD UREA NITROGEN 15 mg/dL (7-20); CARBON DIOXIDE 27 mmol/L (22-30); CHLORIDE 100 mmol/L (98-107); GLUCOSE 380 mg/dL (75-110); POTASSIUM 4.1 mmol/L (3.6-5.0)
--- NOTE | 2020-02-12 19:13 | ER Document Report ---
Doctor's Note Notes: 02/12/20 19:12 Patient seen today by me. On exam patient appears to be mentating normally and has no concerns. When I specifically asked him if he had any problems or concerns he states no. He was sleeping comfortably in the room but was easily arousable. It was appreciated the patient did have a rectal temperature of 102 earlier. He does have some skin breakdown on the buttocks but no evidence of acute infection. He does not have significant abdominal tenderness and had an abdominal CT 2 days ago showing no evidence of acute infection. A C. difficile is been ordered. He does states he has had cough and cold. A Covid was negative and a Covid will be repeated now that he has fever and a chest CT will also be ordered. Patient be placed on the monitor and patient will be reevaluated by Dr. Kaur and as well as by the physician's promotions assistant sales marketing Agata Ramirez.
[2020-02-12] MEDS ORDERED: NORMAL SALINE 1000 ML 1,000 ML IV ONE (19:14)
--- NOTE | 2020-02-12 20:56 | RADIOLOGY REPORT (SQ) ---
EXAM DESCRIPTION: CT CHEST WITH IV CONTRAST COMPLETED DATE/TME: 02/12/2020 20:27 CLINICAL HISTORY: 69 years, Male, fever COMPARISON: None. TECHNIQUE: 80 mL Omnipaque 350. Sagittal coronal reconstruction. Images stored on PACS. All CT scanners at this facility use dose modulation, iterative reconstruction, and/or weight based dosing when appropriate to reduce radiation dose to as low as reasonably achievable (ALARA). FINDINGS: Borderline 29 mm main pulmonary artery. Aorta without acute findings. Suspected calcifications in the aortic annulus. Mild cardiomegaly.. Previous sternotomy. Coronary calcifications. No suspicious mediastinal adenopathy or pericardial effusion. Limited evaluation of the lungs because of motion artifact. Question subtle groundglass opacities. No evidence for pleural effusions. Limited images of the upper abdomen are unremarkable. IMPRESSION: 1. Limited study due to motion artifact. Question subtle groundglass opacities which may be related to edema or viral pneumonia. May represent artifact. 2. Mild cardiomegaly. Mild calcifications aortic valve.
[2020-02-12] MEDS ORDERED: CEFTRIAXONE 1 GM/D5W RTU 1 GM/50 ML RTUPB IV ONE (23:00)
--- NOTE | 2020-02-12 23:03 | PDOC H&P ---
History of Present Illness Admission Date/PCP: 02/12/20 19:46 THOMAS PELAEZ MD History of Present Illness: RUSSELL PARRA is a 69 year old male History of CAD status post CABG and st ent placement, left MCA CVA obesity, GIANNI, diabetes, arthritis, GERD. As per chart review and my conversation with the ED attending patient presented to ED on 02/10/2020 complaining of worsening generalized weakness and foul- smelling diarrhea. Suspicion for C. difficile colitis was raised however patient did not have any bowel movement in ED and a sample could not be taken. Patient was noted to have mild ILANA and hypomagnesemia, hospitalist was consulted for admission however patient did not meet admission criteria. As patient was noted to be too weak to be discharged home child support case officer was consulted for possibly discharging patient to rehab. While waiting to be discharged to rehab patient was noted to be developing fever and was noted by ED attending to be developing altered mental status, hospitalist was consulted for admission. On my encounter patient is comfortably resting in bed, alert but only oriented to person and year. Does not know where he is, and unfortunately does not provide much history, does not know the reason why he is in the hospital only complaining of lower extremity pain. Patient is complaining of being cold denies any shortness of breath, headache, chest pain, nausea, vomiting, diarrhea, constipation or any urinary symptoms. Past Medical History Cardiac Medical History: Reports: Coronary Artery Disease, Myocardial Infarction, Hyperlipidema, Hypertension Pulmonary Medical History: Reports: Asthma - HX, Sleep Apnea - cpap did not help Denies: Bronchitis, Chronic Obstructive Pulmonary Disease (COPD), Pneumonia, Tuberculosis Neurological Medical History: Denies: Seizures Endocrine Medical History: Reports: Diabetes Mellitus Type 2 Denies: Diabetes Mellitus Type 1, Hyperthyroidism, Hypothyroidism GI Medical History: Reports: Gastroesophageal Reflux Disease Denies: Cirrhosis, Crohn's Disease, Hepatitis, Hiatal Hernia, Ulcerative Colitis Musculoskeltal Medical History: Reports: Arthritis - GENERALIZED, Gout Denies: Fibromyalgia Skin Medical History: Denies: Eczema, Psoriasis Psychiatric Medical History: Denies: Depression Hematology: Denies: Anemia, Sickle Cell Disease, Bleeding Tendencies Infectious Medical History: Reports: Clostridium Difficile Past Surgical History Past Surgical History: Reports: Appendectomy, Cardiac Catheterization, Cholecystectomy, Coronary Artery Bypass Graft - 5 vessels, Coronary Stent Denies: Pacemaker Social History Smoking Status: Never Smoker Electronic Cigarette use?: No Frequency of Alcohol Use: None Hx Recreational Drug Use: No Drugs: None Hx Prescription Drug Abuse: No Family History Family History: CAD, DM, Hypertension Parental Family History Reviewed: Yes Children Family History Reviewed: Yes Sibling(s) Family History Reviewed.: Yes Medication/Allergy Home Medications: Clopidogrel Bisulfate [Plavix 75 mg Tablet] 75 mg PO DAILY 08/31/18 Gabapentin [Neurontin 300 mg Capsule] 300 mg PO BID 08/31/18 Aspirin [Ecotrin 81 mg EC Tablet] 81 mg PO DAILY #30 tabec 09/06/18 Colchicine 0.6 mg PO DAILY 7 Days #7 capsule 10/21/19 Brimonidine Tartrate [Alphagan P] 1 drop OU BID 12/14/19 Carbamazepine [Tegretol Xr 200 mg Tab.sr] 200 mg PO BID 12/14/19 Carvedilol [Coreg 12.5 mg Tablet] 12.5 mg PO Q12 12/14/19 Icosapent Ethyl [Vascepa] 1 gm PO BID 12/14/19 Insulin Degludec [Tresiba Flextouch U-200] 50 unit SQ QHS 12/14/19 Potassium Chloride [Klor-Con 10 Meq Tablet ER] 20 meq PO DAILY 12/14/19 Vit B12/Levomefolate/Vit B6/B2 [Metafolbic Tablet] 1 each PO DAILY 12/14/19 Metoprolol Succinate [Toprol Xl 50 mg Tab.sr] 100 mg PO DAILY tab.sr.24h Doxycycline Hyclate 100 mg PO BID 02/10/20 Furosemide [Lasix 20 mg Tablet] 20 mg PO QAM 02/10/20 Lisinopril [Zestril] 40 mg PO QAM 02/10/20 Insulin Aspart [Novolog Flexpen] 0 unit SUBCUT .SLD SCALE 02/12/20 Simvastatin 40 mg PO QHS 02/12/20 Allergies/Adverse Reactions: No Known Allergies Allergy (Verified 12/13/19 15:12) Review of Systems ROS unobtainable: Due to mental status Physical Exam Vital Signs: Temp Pulse Resp BP Pulse Ox 99.0 F 91 18 123/50 L 95 02/12/20 22:00 02/12/20 21:54 02/12/20 21:54 02/12/20 21:54 02/12/20 21:54 Intake & Output 02/11/20 02/12/20 02/13/20 06:59 06:59 06:59 Intake Total 1200 799 Balance 1200 799 Weight 108.862 kg General appearance: PRESENT: no acute distress, obese, well-developed, well- nourished Head exam: PRESENT: atraumatic, normocephalic Neck exam: ABSENT: carotid bruit, JVD, lymphadenopathy, thyromegaly Respiratory exam: PRESENT: clear to auscultation michaela. ABSENT: rales, rhonchi, wheezes Cardiovascular exam: PRESENT: RRR. ABSENT: diastolic murmur, rubs, systolic murmur GI/Abdominal exam: PRESENT: normal bowel sounds, soft. ABSENT: distended, guarding, mass, organolmegaly, rebound, tenderness Extremities exam: PRESENT: tenderness, other - Generalized bilateral lower ex tremity pain. Neurological exam: PRESENT: alert, awake, oriented to person, CN II-XII grossly intact, other - Right upper lower extremity weakness. Chronic.. ABSENT: motor sensory deficit Skin exam: PRESENT: dry, intact, warm, other - Stage I decubitus ulcer.. ABSENT: cyanosis, rash Results Laboratory Results: 02/12/20 17:17 02/12/20 17:17 02/12/20 02/12/20 02/12/20 17:17 17:17 17:17 WBC 10.4 RBC 3.40 L Hgb 10.8 L Hct 31.5 L MCV 92 MCH 31.6 MCHC 34.2 RDW 13.7 Plt Count 210 Seg Neutrophils % 76.0 Sodium 132.1 L Potassium 4.1 Chloride 100 Carbon Dioxide 27 Anion Gap 5 BUN 15 Creatinine 0.93 Est GFR ( Amer) > 60 Glucose 380 H Lactic Acid 1.1 Uric Acid Calcium 8.0 L 02/12/20 17:17 WBC RBC Hgb Hct MCV MCH MCHC RDW Plt Count Seg Neutrophils % Sodium Potassium Chloride Carbon Dioxide Anion Gap BUN Creatinine Est GFR ( Amer) Glucose Lactic Acid Uric Acid 9.3 H Calcium 02/10/20 13:20 Troponin I < 0.012 NT-Pro-B Natriuret Pep 293 H Impressions: Chest X-Ray 02/10/20 13:09 IMPRESSION: No acute radiographic abnormality or significant interval change. Abdomen/Pelvis CT 02/10/20 14:54 IMPRESSION: 1. Interval resolution of previously demonstrated pancreatitis. 2. No new acute abnormality on noncontrast CT of the abdomen and pelvis. 3. Nonobstructing right renal calculus. Head CT 02/10/20 14:56 IMPRESSION: NO ACUTE INTRACRANIAL FINDINGS. EVIDENCE OF ACUTE STROKE: NO. Lower Extremity CT 02/11/20 08:35 IMPRESSION: No evidence of acute fracture. Joint effusion. KUB X-Ray 02/12/20 17:07 IMPRESSION: Mild constipation. Chest CT 02/12/20 19:10 IMPRESSION: 1. Limited study due to motion artifact. Question subtle groundglass opacities which may be related to edema or viral pneumonia. May represent artifact. 2. Mild cardiomegaly. Mild calcifications aortic valve. Assessment and Plan - Diagnosis (1) Acute metabolic encephalopathy Is this a current diagnosis for this admission?: Yes Plan: Acute metabolic encephalopathy, history of left MCA, unknown baseline. Noted to be febrile with no apparent sign of infection. CT head negative for any acute abnormalities. CT chest without contrast suboptimal study due to motion artifact, questionable groundglass opacity which could be edema or viral pneumonia. COVID-[address] abdomen/pelvis no acute abnormality except for resolution of previously demonstrated pancreatitis and nonobstructing right renal calculus. CBC CMP WNL. UA negative for any sign of infection. Monitor vitals and electrolytes replace as needed, supportive measures. Start on empiric IV antibiotics if any sign of infection. (2) Chronic ischemic left MCA stroke Is this a current diagnosis for this admission?: Yes Plan: Chronic left MCA CVA. Right upper and lower extremity paraparesis. Continue DAPT, and treatment for underlying diabetes and hypertension. Continue PT OT. Fall, seizure and aspiration precautions. (3) Physical deconditioning Is this a current diagnosis for this admission?: Yes Plan: Most likely due to chronic multiple comorbidities complicated by history of CVA. Continue PT OT, aspiration, seizure and fall precautions. Pending placement. Ship Washer consulted. (4) Fever Qualifiers: Fever type: due to other condition Qualified Code(s): R50.81 - Fever presenting with conditions classified elsewhere Is this a current diagnosis for this admission?: Yes Plan: CT chest without contrast suboptimal study due to motion artifact, questionable groundglass opacity which could be edema or viral pneumonia. COVID-[address] abdomen/pelvis no acute abnormality except for resolution of previously demonstrated pancreatitis and nonobstructing right renal calculus. CBC CMP WNL. UA negative for any sign of infection. Monitor vitals and electrolytes replace as needed, supportive measures. Blood culture. Start on empiric IV antibiotics if any sign of infection. (5) Acute kidney injury superimposed on chronic kidney disease Is this a current diagnosis for this admission?: Yes Plan: Likely prerenal. On admission patient was complaining of diarrhea. Renal function WNL at the moment. Patient has history of CKD with baseline creatinine of 2-4. Currently nonoliguric. Monitor electrolytes and volume status, avoid nephrotoxic meds. Outpatient PCP and nephrology follow-up. (6) Coronary artery disease Is this a current diagnosis for this admission?: Yes Plan: History of CABG and multiple stent placement. Denies any anginal symptoms. Continue DAPT, ANDRES, beta-blockers, statins. Outpatient PCP and cardiology follow-up. (7) Diabetes Qualifiers: Diabetes mellitus type: type 2 Chronic kidney disease stage 3 subtype: stage 3a (GFR 45-59) Is this a current diagnosis for this admission?: Yes Plan: History of uncontrolled diabetes. Hemoglobin A1c 11.6% on 12/14/2019. Diabetic diet, Accu-Chek, hypoglycemia protocol. Diabetic education. Basal, prandial and correctional insulin. Adjust dosage as needed. (8) Hypertension Qualifiers: Is this a current diagnosis for this admission?: Yes Plan: Normotensive, appears euvolemic. Resume home meds. Adjust meds as needed. Outpatient PCP follow-up. (9) Left leg pain Is this a current diagnosis for this admission?: Yes Plan: Patient complaining of diffuse left lower extremity pain. CT left lower extremity negative for any acute abnormalities. As per chart review patient and family had stated that he had a left lower extremity venous Doppler by PCP which reported negative for DVT. On physical examination has diffuse pain and left lower extremity, no swelling or any sign of infection noted. Neurovascularly intact. Continue supportive measures. - Time Time Spent with patient: 35 or more minutes Anticipated Discharge Disposition[facility] Anticipated Discharge Timeframe: when bed available
[2020-02-12] MEDS ORDERED: MAG HYDROX/AL HYDROX/SIMETH SUSP 30 ML UDCUP PO PRN (23:09)
[2020-02-12] MEDS ORDERED: IPRATROPIUM/ALBUTEROL 0.5-2.5 MG/3 ML AMPUL NEB PRN (23:09)
[2020-02-12] MEDS ORDERED: ACETAMINOPHEN 325 MG TABLET PO PRN (23:09)
[2020-02-12] MEDS ORDERED: PROMETHAZINE HCL INJ 25 MG/1 ML VIAL IV PRN (23:09)
[2020-02-12] MEDS ORDERED: TEMAZEPAM 7.5 MG CAPSULE PO PRN (23:09)
[2020-02-12] MEDS ORDERED: TEMAZEPAM 15 MG CAPSULE PO PRN (23:09)
[2020-02-12] MEDS ORDERED: ONDANSETRON HCL INJ/PF 4 MG/2 ML SDV IV PRN (23:09)
[2020-02-12] MEDS ORDERED: MAGNESIUM HYDROXIDE SUSP 30 ML UDCUP PO PRN (23:09)
[2020-02-12] MEDS ORDERED: DEXTROSE 50%-WATER 25 GM/50 ML DISP.SYRIN IV PRN ×2 (23:16)
[2020-02-12] MEDS ORDERED: GLUCAGON,HUMAN RECOMB 1 MG INJ IM PRN (23:16)
[2020-02-12] MEDS ORDERED: DEXTROSE 40% GEL 15 GM TUBE PO PRN ×2 (23:16)
[2020-02-12] MEDS ORDERED: INSULIN GLARGINE,HUM.REC.ANLOG 1,000 UNIT/10 ML VIAL SUBCUT ONE (23:30)
[2020-02-12] MEDS ORDERED: FAMOTIDINE 20 MG TABLET PO ONE (23:30)
[2020-02-13] MEDS ORDERED: INSULIN GLARGINE,HUM.REC.ANLOG 1,000 UNIT/10 ML VIAL (PYX) SUBCUT ONE (00:12)
[2020-02-13] MEDS: INSULIN LISPRO 100 UNIT/ML 3 ML VIAL ONE ×2 (06:45→06:50)
[2020-02-13] MEDS ORDERED: INSULIN LISPRO 100 UNIT/ML 3 ML VIAL SUBCUT ONE (07:00)
[2020-02-13 07:07] LABS: ABSOLUTE EOSINOPHILS # (AUTO) 0.2 10^3/uL (0.0-0.6); ABSOLUTE LYMPHOCYTES (AUTO) 1.9 10^3/uL (0.5-4.7); ABSOLUTE NEUT (AUTO) 7.8 10^3/uL (1.7-8.2); BASOPHILS % (AUTO) 0.2 % (0-2); EOSINOPHILS % (AUTO) 2.1 % (0-6); HEMATOCRIT 31.4 % (37.9-51.0); HEMOGLOBIN 10.7 g/dL (13.5-17.0); LYMPHOCYTES % (AUTO) 17.2 % (13-45); MEAN CORPUSCULAR HEMOGLOBIN 31.6 pg (27.0-33.4); MEAN CORPUSCULAR HGB CONC 34.1 g/dL (32.0-36.0); MEAN CORPUSCULAR VOLUME 92 fl (80-97); MONOCYTES % (AUTO) 8.8 % (3-13); PLATELET COUNT 220 10^3/uL (150-450); RED CELL DISTRIBUTION WIDTH 13.4 % (11.5-14.0); SEGMENTED NEUTROPHILS % (AUTO) 71.7 % (42-78); TOTAL CELLS COUNTED % (AUTO) 100 %; WHITE BLOOD COUNT 10.8 10^3/uL (4.0-10.5)
[2020-02-13 07:35] LABS: ANION GAP 8 (5-19); BLOOD UREA NITROGEN 15 mg/dL (7-20); CALCIUM 8.6 mg/dL (8.4-10.2); CARBON DIOXIDE 27 mmol/L (22-30); CHLORIDE 100 mmol/L (98-107); GLUCOSE 340 mg/dL (75-110); PHOSPHORUS 2.8 mg/dL (2.5-4.5); POTASSIUM 4.3 mmol/L (3.6-5.0)
[2020-02-13] MEDS: INSULIN LISPRO 100 UNIT/ML 3 ML VIAL SUBCUT SCH ×4 (08:02→22:21)
[2020-02-13] MEDS: FUROSEMIDE 20 MG TABLET PO SCH (08:03)
[2020-02-13] MEDS: LISINOPRIL 10 MG TABLET PO SCH (08:03)
[2020-02-13] MEDS ORDERED: POTASSIUM CHLORIDE 10 MEQ TABLET.ER PO SCH (10:00)
[2020-02-13] MEDS ORDERED: DOCUSATE SODIUM 100 MG CAPSULE PO SCH (10:00)
[2020-02-13] MEDS ORDERED: BRIMONIDINE TARTRATE OU SCH (10:00)
[2020-02-13] MEDS: OXYCODONE-ACETAMINOPHEN 5-325 MG TABLET PO PRN (11:55)
[2020-02-13] MEDS: ENOXAPARIN SODIUM INJ 40 MG/0.4 ML DISP.SYRIN SUBCUT SCH (11:56)
[2020-02-13] MEDS: GABAPENTIN 300 MG CAPSULE PO SCH ×2 (11:56→17:44)
[2020-02-13] MEDS: FAMOTIDINE 20 MG TABLET PO SCH ×2 (11:56→22:20)
[2020-02-13] MEDS: CLOPIDOGREL BISULFATE 75 MG TABLET PO SCH (11:57)
[2020-02-13] MEDS: ASPIRIN 81 MG TABLET, ENT COATED PO SCH (11:57)
[2020-02-13] MEDS: METOPROLOL SUCCINATE 50 MG TAB.SR.24H PO SCH ×2 (11:57→22:20)
[2020-02-13] MEDS: SIMVASTATIN 40 MG TABLET PO SCH (11:57)
[2020-02-13] MEDS: CARVEDILOL 12.5 MG TABLET PO SCH ×2 (11:57→17:44)
[2020-02-13] MEDS: COLCHICINE 0.6 MG TABLET PO SCH (11:58)
--- NOTE | 2020-02-13 14:11 | RADIOLOGY REPORT (SQ) ---
EXAM DESCRIPTION: VENOUS UNILATERAL LOWER IMAGES COMPLETED DATE/TIME: 02/13/2020 2:00 pm REASON FOR STUDY: LEFT leg swelling, rule out DVT R19.7 DIARRHEA, UNSPECIFIED E83.42 HYPOMAGNESEMI A E87.1 HYPO-OSMOLALITY AND HYPONATREMIA COMPARISON: None. TECHNIQUE: Dynamic and static oliva scale and color images acquired of the left leg venous system. Se lected spectral images acquired with additional compression and augmentation maneuvers. The contralat eral common femoral vein and saphenofemoral junction were also imaged. Images stored on PACS. LIMITATIONS: None. FINDINGS: COMMON FEMORAL: Normal phasicity, compression and augmentation. No visualized echogenic ma terial on oliva scale. No defects on color images. FEMORAL: Normal compression and augmentation. No visualized echogenic material on oliva scale. No defe cts on color images. POPLITEAL: Normal compression, augmentation. No visualized echogenic material on oliva scale. No defec ts on color images. CALF VESSELS: Normal compression, augmentation. No visualized echogenic material on oliva scale. No de fects on color images. GSV and SSV: Normal compression, augmentation. No visualized echogenic material on oliva scale. No def ects on color images. ANY DEEP VENOUS INSUFFICIENCY: Not evaluated. ANY EVIDENCE OF POPLITEAL CYST: There is a 5.3 x 1.6 x 2.8 cm left popliteal cyst. OTHER: No other significant finding. CONTRALATERAL COMMON FEMORAL VEIN AND SAPHENOFEMORAL JUNCTION: Normal phasicity, compression and augmentation. No visualized echogenic material on oliva scale. No de fects on color images. IMPRESSION: 1. No evidence of DVT or SVT in the left lower extremity. 2. Approximately 5 cm left popliteal cyst. TECHNICAL DOCUMENTATION: JOB ID: [id number] [employer]- All Rights Reserved Reading location - IP/workstation name: [email or web address]
--- NOTE | 2020-02-13 19:56 | PDOC PROGRESS REPORT ---
Subjective Date:: 02/13/20 Subjective:: NAEO. No changes to mental status. Reason For Visit: FEVER,ALTERED MENTAL STATUS,PHYSICAL DECONDITIONIN Physical Exam Vital Signs: Temp Pulse Resp BP Pulse Ox 100.4 F 82 16 105/56 L 95 02/13/20 11:08 02/13/20 14:00 02/13/20 11:56 02/13/20 11:08 02/13/20 11:56 Intake & Output 02/12/20 02/13/20 02/14/20 06:59 06:59 06:59 Intake Total 1250 220 Balance 1250 220 Weight 109.7 kg General appearance: PRESENT: no acute distress Eye exam: ABSENT: conjunctival injection, scleral icterus Mouth exam: PRESENT: moist Throat exam: ABSENT: post pharyngeal erythema Neck exam: ABSENT: JVD Respiratory exam: PRESENT: clear to auscultation michaela Cardiovascular exam: PRESENT: RRR GI/Abdominal exam: PRESENT: normal bowel sounds, soft. ABSENT: tenderness Extremities exam: PRESENT: other - LLE swelling Neurological exam: PRESENT: alert, awake, oriented to person. ABSENT: oriented to place, oriented to time, oriented to situation Psychiatric exam: PRESENT: flat affect Skin exam: ABSENT: jaundice Results Laboratory Results: 02/13/20 06:24 02/13/20 06:24 02/13/20 02/13/20 06:24 06:24 WBC 10.8 H RBC 3.40 L Hgb 10.7 L Hct 31.4 L MCV 92 MCH 31.6 MCHC 34.1 RDW 13.4 Plt Count 220 Seg Neutrophils % 71.7 Sodium 135.4 L Potassium 4.3 Chloride 100 Carbon Dioxide 27 Anion Gap 8 BUN 15 Creatinine 1.05 Est GFR ( Amer) > 60 Glucose 340 H Calcium 8.6 Phosphorus 2.8 Magnesium 2.0 02/10/20 13:20 Troponin I < 0.012 NT-Pro-B Natriuret Pep 293 H Impressions: Chest X-Ray 02/10/20 13:09 IMPRESSION: No acute radiographic abnormality or significant interval change. Abdomen/Pelvis CT 02/10/20 14:54 IMPRESSION: 1. Interval resolution of previously demonstrated pancreatitis. 2. No new acute abnormality on noncontrast CT of the abdomen and pelvis. 3. Nonobstructing right renal calculus. Head CT 02/10/20 14:56 IMPRESSION: NO ACUTE INTRACRANIAL FINDINGS. EVIDENCE OF ACUTE STROKE: NO. Lower Extremity CT 02/11/20 08:35 IMPRESSION: No evidence of acute fracture. Joint effusion. KUB X-Ray 02/12/20 17:07 IMPRESSION: Mild constipation. Chest CT 02/12/20 19:10 IMPRESSION: 1. Limited study due to motion artifact. Question subtle groundglass opacities which may be related to edema or viral pneumonia. May represent artifact. 2. Mild cardiomegaly. Mild calcifications aortic valve. Venous Doppler Study 02/13/20 00:00 IMPRESSION: 1. No evidence of DVT or SVT in the left lower extremity. 2. Approximately 5 cm left popliteal cyst. Assessment and Plan - Diagnosis (1) Acute kidney injury Is this a current diagnosis for this admission?: Yes (2) Acute metabolic encephalopathy Is this a current diagnosis for this admission?: Yes (3) Chronic ischemic left MCA stroke Is this a current diagnosis for this admission?: Yes (4) Fever Qualifiers: Fever type: due to other condition Qualified Code(s): R50.81 - Fever presenting with conditions classified elsewhere Is this a current diagnosis for this admission?: Yes (5) Hypomagnesemia Is this a current diagnosis for this admission?: Yes (6) Left leg pain Is this a current diagnosis for this admission?: Yes (7) Physical deconditioning Is this a current diagnosis for this admission?: Yes (8) Uncontrolled diabetes mellitus Qualifiers: Diabetes mellitus type: type 2 Glycemic state: with hyperglycemia Qualified Code(s): E11.65 - Type 2 diabetes mellitus with hyperglycemia Is this a current diagnosis for this admission?: Yes (9) Acute kidney injury superimposed on chronic kidney disease Is this a current diagnosis for this admission?: Yes (10) Coronary artery disease Is this a current diagnosis for this admission?: Yes (11) Diabetes mellitus type 2 in obese Is this a current diagnosis for this admission?: Yes (12) Obesity (BMI 30-39.9) Is this a current diagnosis for this admission?: Yes - Plan Summary Summary: RUSSELL PARRA is a 69 year old male with history of CAD status post CABG and PCI, left MCA CVA, obesity, GIANNI, DM2, arthritis, GERD who initially presented to ED on 02/10/2020 complaining of worsening generalized weakness and foul-smelling diarrhea. Suspicion for C. difficile colitis was raised however patient did not have any bowel movement in ED and a sample could not be taken. Patient was noted to have mild ILANA and hypomagnesemia, hospitalist was consulted for admission however patient did not meet admission criteria. As patient was noted to be too weak to be discharged home manager case was consulted for possibly discharging patient to rehab. While waiting to be discharged to rehab patient was noted to be developing fever and was noted by ED attending to be developing altered mental status, so hospitalist was again consulted for admission on 02/12/2020. Fever of unknown etiology Acute metabolic encephalopathy: unknown baseline mental status. Noted to be febrile with no other apparent sign of infection. CT head negative for any acute abnormalities. CT chest without contrast suboptimal study due to motion artifact, questionable groundglass opacity which could be edema or viral pneumonia. COVID-[address] abdomen/pelvis no acute abnormality except for resolution of previously demonstrated pancreatitis and nonobstructing right renal calculus. CBC CMP WNL. UA negative for any sign of infection. Duplex US of LLE negative for DVT. Monitor vitals and electrolytes replace as needed, supportive measures. Start on empiric IV antibiotics if any sign of infection. Chronic ischemic left MCA stroke Chronic left MCA CVA. Right upper and lower extremity paraparesis. Continue DAPT, and treatment for underlying diabetes and hypertension. Continue PT OT. Fall, seizure and aspiration precautions. Physical deconditioning Most likely due to chronic multiple comorbidities complicated by history of CVA. Continue PT OT, aspiration, seizure and fall precautions. Pending placement. Supervisor Train Operations consulted. Acute kidney injury superimposed on chronic kidney disease Likely prerenal. On admission patient was complaining of diarrhea. Renal function WNL at the moment. Patient has history of CKD with baseline creatinine of 2-4. Currently nonoliguric. Monitor electrolytes and volume status, avoid nephrotoxic meds. Outpatient PCP and nephrology follow-up. Coronary artery disease History of CABG and multiple stent placement. Denies any anginal symptoms. Continue DAPT, ANDRES, beta-blockers, statins. Outpatient PCP and cardiology follow-up. DM2 History of uncontrolled diabetes. Hemoglobin A1c 11.6% on 12/14/2019. Diabetic diet, Accu-Chek, hypoglycemia protocol. Diabetic education. Basal, prandial and correctional insulin. Adjust dosage as needed. Essential Hypertension Normotensive, appears euvolemic. Resume home meds. Adjust meds as needed. Outpatient PCP follow-up. Left leg pain Patient complaining of diffuse left lower extremity pain. CT left lower extremity negative for any acute abnormalities. LLE venous Doppler negative for DVT. On physical examination has diffuse pain and left lower extremity, no swelling or any sign of infection noted. Neurovascularly intact. Continue supportive measures. - Time Time Spent with patient: 35 or more minutes Anticipated Discharge Disposition: Senior Living Facility Anticipated Discharge Timeframe: within 48 hours
[2020-02-13] MEDS: CEFTRIAXONE 1 GM/D5W RTU 1 GM/50 ML RTUPB IV SCH (22:20)
[2020-02-13] MEDS: INSULIN GLARGINE,HUM.REC.ANLOG 1,000 UNIT/10 ML VIAL SUBCUT SCH (22:21)
[2020-02-14 06:02] LABS: HEMATOCRIT 28.2 % (37.9-51.0); HEMOGLOBIN 9.8 g/dL (13.5-17.0); MEAN CORPUSCULAR HEMOGLOBIN 31.7 pg (27.0-33.4); MEAN CORPUSCULAR HGB CONC 34.7 g/dL (32.0-36.0); MEAN CORPUSCULAR VOLUME 91 fl (80-97); PLATELET COUNT 237 10^3/uL (150-450); RED BLOOD COUNT 3.09 10^6/uL (4.35-5.55); RED CELL DISTRIBUTION WIDTH 13.3 % (11.5-14.0)
[2020-02-14 06:06] LABS: VENOUS BLOOD BASE EXCESS 0.6 mmol/L; VENOUS BLOOD HCO3 25.7 mmol/L (20-32); VENOUS BLOOD PH 7.39 (7.30-7.42)
[2020-02-14 06:32] LABS: ALBUMIN 2.2 g/dL (3.5-5.0); ALKALINE PHOSPHATASE 62 U/L (38-126); ANION GAP 8 (5-19); ASPARTATE AMINO TRANSFERASE 29 U/L (17-59); BILIRUBIN,DIRECT 0.3 mg/dL (0.0-0.4); BILIRUBIN,TOTAL 0.4 mg/dL (0.2-1.3); BLOOD UREA NITROGEN 19 mg/dL (7-20); CALCIUM 8.2 mg/dL (8.4-10.2); CARBON DIOXIDE 25 mmol/L (22-30); CHLORIDE 103 mmol/L (98-107); GLUCOSE 242 mg/dL (75-110); POTASSIUM 4.2 mmol/L (3.6-5.0); TOTAL PROTEIN 4.7 g/dL (6.3-8.2)
[2020-02-14 06:47] LABS: ERYTHROCYTE SEDIMENTATION RATE 119 mm/hr (0-20)
[2020-02-14 06:58] LABS: C-REACTIVE PROTEIN 311.9 mg/L (<10.0)
[2020-02-14] MEDS: FUROSEMIDE 20 MG TABLET PO SCH (08:33)
[2020-02-14] MEDS: LISINOPRIL 10 MG TABLET PO SCH (08:33)
[2020-02-14] MEDS: NORMAL SALINE 1000 ML 1,000 ML IV PRN ×2 (08:40→18:02)
[2020-02-14] MEDS: INSULIN LISPRO 100 UNIT/ML 3 ML VIAL SUBCUT SCH ×5 (08:40→22:11)
[2020-02-14] MEDS: INSULIN GLARGINE,HUM.REC.ANLOG 1,000 UNIT/10 ML VIAL SUBCUT SCH ×2 (13:05→22:12)
[2020-02-14] MEDS: CLOPIDOGREL BISULFATE 75 MG TABLET PO SCH (13:06)
[2020-02-14] MEDS: FAMOTIDINE 20 MG TABLET PO SCH ×2 (13:06→22:15)
[2020-02-14] MEDS: ENOXAPARIN SODIUM INJ 40 MG/0.4 ML DISP.SYRIN SUBCUT SCH (13:06)
[2020-02-14] MEDS: SIMVASTATIN 40 MG TABLET PO SCH (13:06)
[2020-02-14] MEDS: CARVEDILOL 12.5 MG TABLET PO SCH ×2 (13:06→18:01)
[2020-02-14] MEDS: ASPIRIN 81 MG TABLET, ENT COATED PO SCH (13:06)
[2020-02-14] MEDS: COLCHICINE 0.6 MG TABLET PO SCH (13:06)
--- NOTE | 2020-02-14 20:02 | PDOC PROGRESS REPORT ---
Subjective Date:: 02/14/20 Subjective:: He is much more awake and alert today. He has been afebrile >24 hours. Reason For Visit: FEVER,ALTERED MENTAL STATUS,PHYSICAL DECONDITIONIN Physical Exam Vital Signs: Temp Pulse Resp BP Pulse Ox 97.9 F 73 18 129/40 H 98 02/14/20 15:27 02/14/20 15:27 02/14/20 15:27 02/14/20 15:27 02/14/20 15:27 Intake & Output 02/13/20 02/14/20 02/15/20 06:59 06:59 06:59 Intake Total 3052 560 4913 Output Total 200 Balance 8249 357 7193 Weight 109.7 kg 110.4 kg 110.4 kg General appearance: PRESENT: no acute distress, cooperative Head exam: PRESENT: atraumatic Eye exam: ABSENT: conjunctival injection, scleral icterus Mouth exam: PRESENT: moist Throat exam: ABSENT: post pharyngeal erythema Neck exam: ABSENT: JVD Respiratory exam: PRESENT: clear to auscultation michaela Cardiovascular exam: PRESENT: RRR GI/Abdominal exam: PRESENT: normal bowel sounds, soft. ABSENT: tenderness Extremities exam: PRESENT: +1 edema Neurological exam: PRESENT: alert, awake, oriented to person, oriented to place, oriented to time. ABSENT: oriented to situation Psychiatric exam: PRESENT: appropriate affect Skin exam: ABSENT: jaundice, rash Results Laboratory Results: 02/14/20 05:30 02/14/20 05:30 02/14/20 02/14/20 02/14/20 05:30 05:30 05:30 WBC 10.0 RBC 3.09 L Hgb 9.8 L Hct 28.2 L MCV 91 MCH 31.7 MCHC 34.7 RDW 13.3 Plt Count 237 VBG pH 7.39 VBG pCO2 43.0 VBG HCO3 25.7 VBG Base Excess 0.6 Sodium 135.6 L Potassium 4.2 Chloride 103 Carbon Dioxide 25 Anion Gap 8 BUN 19 Creatinine 1.60 H Est GFR ( Amer) 52 L Glucose 242 H Calcium 8.2 L Magnesium 1.9 Total Bilirubin 0.4 AST 29 Alkaline Phosphatase 62 C-Reactive Protein 311.9 H Total Protein 4.7 L Albumin 2.2 L 02/10/20 13:20 Troponin I < 0.012 NT-Pro-B Natriuret Pep 293 H Impressions: Chest X-Ray 02/10/20 13:09 IMPRESSION: No acute radiographic abnormality or significant interval change. Abdomen/Pelvis CT 02/10/20 14:54 IMPRESSION: 1. Interval resolution of previously demonstrated pancreatitis. 2. No new acute abnormality on noncontrast CT of the abdomen and pelvis. 3. Nonobstructing right renal calculus. Head CT 02/10/20 14:56 IMPRESSION: NO ACUTE INTRACRANIAL FINDINGS. EVIDENCE OF ACUTE STROKE: NO. Lower Extremity CT 02/11/20 08:35 IMPRESSION: No evidence of acute fracture. Joint effusion. KUB X-Ray 02/12/20 17:07 IMPRESSION: Mild constipation. Chest CT 02/12/20 19:10 IMPRESSION: 1. Limited study due to motion artifact. Question subtle groundglass opacities which may be related to edema or viral pneumonia. May represent artifact. 2. Mild cardiomegaly. Mild calcifications aortic valve. Venous Doppler Study 02/13/20 00:00 IMPRESSION: 1. No evidence of DVT or SVT in the left lower extremity. 2. Approximately 5 cm left popliteal cyst. Assessment and Plan - Diagnosis (1) Acute kidney injury Is this a current diagnosis for this admission?: Yes (2) Acute metabolic encephalopathy Is this a current diagnosis for this admission?: Yes (3) Chronic ischemic left MCA stroke Is this a current diagnosis for this admission?: Yes (4) Fever Qualifiers: Fever type: due to other condition Qualified Code(s): R50.81 - Fever presenting with conditions classified elsewhere Is this a current diagnosis for this admission?: Yes (5) Hypomagnesemia Is this a current diagnosis for this admission?: Yes (6) Left leg pain Is this a current diagnosis for this admission?: Yes (7) Physical deconditioning Is this a current diagnosis for this admission?: Yes (8) Uncontrolled diabetes mellitus Qualifiers: Diabetes mellitus type: type 2 Glycemic state: with hyperglycemia Qualified Code(s): E11.65 - Type 2 diabetes mellitus with hyperglycemia Is this a current diagnosis for this admission?: Yes (9) Acute kidney injury superimposed on chronic kidney disease Is this a current diagnosis for this admission?: Yes (10) Coronary artery disease Is this a current diagnosis for this admission?: Yes (11) Diabetes mellitus type 2 in obese Is this a current diagnosis for this admission?: Yes (12) Obesity (BMI 30-39.9) Is this a current diagnosis for this admission?: Yes - Plan Summary Summary: RUSSELL PARRA is a 69 year old male with history of mild cognitive impairment, CAD status post CABG and PCI, left MCA CVA, obesity, GIANNI, DM2, arthritis, GERD who initially presented to ED on 02/10/2020 complaining of worsening generalized weakness and foul-smelling diarrhea. Suspicion for C. difficile colitis was raised however patient did not have any bowel movement in ED and a sample could not be taken. Patient was noted to have mild ILANA and hypomagnesemia, hospitalist was consulted for admission however patient did not meet admission criteria. As patient was noted to be too weak to be discharged home medical case worker was consulted for possibly discharging patient to rehab. While waiting to be discharged to rehab patient was noted to be developing fever and was noted by ED attending to be developing altered mental status, so hospitalist was again consulted for admission on 02/12/2020. Fever of unknown etiology: febrile with no other apparent sign of infection. He has been afebrile now >24 hours. He has had an extensive negative work up. Continued low-grade fevers, ESR>100 and CRP>300 concerning for underlying malignancy or other chronic inflammatory process, although none has been found thus far. Acute metabolic encephalopathy: much improved today. He is A&Ox3, conversive and following directions appropriately. CT head negative for any acute abnormalities. CT chest without contrast suboptimal study due to motion artifact, questionable groundglass opacity which could be edema or viral pneumonia. COVID-[address] abdomen/pelvis no acute abnormality except for resolution of previously demonstrated pancreatitis and nonobstructing right renal calculus. CBC and CMP WNL. UA negative for any sign of infection. Duplex US of LLE negative for DVT. Chronic ischemic left MCA stroke Chronic left MCA CVA. Right upper and lower extremity weakness. Continue DAPT, and treatment for underlying diabetes and hypertension. Continue PT OT. Fall, seizure and aspiration precautions. Physical deconditioning Most likely due to chronic multiple comorbidities complicated by history of CVA. Continue PT OT, aspiration, seizure and fall precautions. Pending placement. Applications Processor consulted. Acute kidney injury superimposed on chronic kidney disease Likely prerenal. On admission patient was complaining of diarrhea. Renal function WNL at the moment. Patient has history of CKD with baseline creatinine of 2-4. Currently nonoliguric. Monitor electrolytes and volume status, avoid nephrotoxic meds. Outpatient PCP and nephrology follow-up. Coronary artery disease History of CABG and multiple stent placement. Denies any anginal symptoms. Continue DAPT, ANDRES, beta-blockers, statins. Outpatient PCP and cardiology follow-up. DM2 History of uncontrolled diabetes. Hemoglobin A1c 11.6% on 12/14/2019. Diabetic diet, Accu-Chek, hypoglycemia protocol. Diabetic education. Basal, prandial and correctional insulin. Adjust dosage as needed. Essential Hypertension Normotensive, appears euvolemic. Resume home meds. Adjust meds as needed. Outpatient PCP follow-up. Left leg pain Patient complaining of diffuse left lower extremity pain. CT left lower extremity negative for any acute abnormalities. LLE venous Doppler negative for DVT. On physical examination has diffuse pain and left lower extremity, no swelling or any sign of infection noted. Neurovascularly intact. Continue supportive measures. Dispo: Plan to discharge to SNF within 24 hours. He has been accepted to a facility, but they would not take him today because he had a fever to 100.4 yesterday. - Time Time Spent with patient: 35 or more minutes Anticipated Discharge Disposition: Jail Facility Anticipated Discharge Timeframe: within 24 hours
[2020-02-14] MEDS: OXYCODONE-ACETAMINOPHEN 5-325 MG TABLET PO PRN (22:13)
[2020-02-14] MEDS: CEFTRIAXONE 1 GM/D5W RTU 1 GM/50 ML RTUPB IV SCH (22:14)
[2020-02-15] MEDS: NORMAL SALINE 1000 ML 1,000 ML IV PRN ×2 (03:00→09:22)
[2020-02-15] MEDS: COLCHICINE 0.6 MG TABLET PO SCH (09:58)
[2020-02-15] MEDS: INSULIN LISPRO 100 UNIT/ML 3 ML VIAL SUBCUT SCH ×2 (09:59→14:00)
[2020-02-15] MEDS: OXYCODONE-ACETAMINOPHEN 5-325 MG TABLET PO PRN (10:01)
[2020-02-15] MEDS: CARVEDILOL 12.5 MG TABLET PO SCH (10:01)
[2020-02-15] MEDS: CLOPIDOGREL BISULFATE 75 MG TABLET PO SCH (10:01)
[2020-02-15] MEDS: ASPIRIN 81 MG TABLET, ENT COATED PO SCH (10:01)
[2020-02-15] MEDS: FAMOTIDINE 20 MG TABLET PO SCH (10:01)
[2020-02-15] MEDS: INSULIN GLARGINE,HUM.REC.ANLOG 1,000 UNIT/10 ML VIAL SUBCUT SCH (10:02)
[2020-02-15] MEDS: SIMVASTATIN 40 MG TABLET PO SCH (10:02)
[2020-02-15] MEDS: ENOXAPARIN SODIUM INJ 40 MG/0.4 ML DISP.SYRIN SUBCUT SCH (10:02)
[2020-02-15 12:51] VITALS: BP 131/48
--- NOTE | 2020-02-15 13:41 | PDOC DISCHARGE SUMMARY ---
Impression - Admit/DC Date/PCP Admission Date/Primary Care Provider: 02/13/20 12:32 THOMAS PELAEZ MD Discharge Date: 02/15/20 - Discharge Diagnosis (1) Acute kidney injury Is this a current diagnosis for this admission?: Yes (2) Acute metabolic encephalopathy Is this a current diagnosis for this admission?: Yes (3) Fever Is this a current diagnosis for this admission?: Yes (4) Left leg pain Is this a current diagnosis for this admission?: Yes (5) Physical deconditioning Is this a current diagnosis for this admission?: Yes - Assessment Summary: RUSSELL PARRA is a 69 year old male with history of mild cognitive impairment, CAD status post CABG and PCI, left MCA CVA, obesity, GIANNI, DM2, arthritis, GERD who initially presented to ED on 02/10/2020 complaining of worsening generalized weakness and foul-smelling diarrhea. Suspicion for C. difficile colitis was raised however patient did not have any bowel movement in ED and a sample could not be taken. Patient was noted to have mild ILANA and hypomagnesemia, hospitalist was consulted for admission however patient did not meet admission criteria. As patient was noted to be too weak to be discharged home business case analyst was consulted for possibly discharging patient to rehab. While waiting to be discharged to rehab patient was noted to be developing fever and was noted by ED attending to be developing altered mental status, so hospitalist was again consulted for admission on 02/12/2020. Fever of unknown etiology: febrile with no other apparent sign of infection. He has been afebrile now >24 hours. He has had an extensive negative work up. Continued low-grade fevers, ESR>100 and CRP>300 concerning for underlying malignancy or other chronic inflammatory process, although none has been found thus far. Acute metabolic encephalopathy: conversive and following directions appropriately. CT head negative for any acute abnormalities. CT chest without contrast suboptimal study due to motion artifact, questionable groundglass opacity which could be edema or viral pneumonia - will discharge on cephalosporin/doxycycline, afebrile for 24hours. COVID-[address] abdomen/pelvis no acute abnormality except for resolution of previously demonstrated pancreatitis and nonobstructing right renal calculus. CBC and CMP WNL. UA negative for any sign of infection. Duplex US of LLE negative for DVT. Chronic ischemic left MCA stroke Chronic left MCA CVA. Right upper and lower extremity weakness. Continue DAPT, and treatment for underlying diabetes and hypertension. Continue PT OT. Fall, seizure and aspiration precautions. Physical deconditioning Most likely due to chronic multiple comorbidities complicated by history of CVA. Continue PT OT, aspiration, seizure and fall precautions. Pending placement. Internal Combustion Engine Assembler consulted. Acute kidney injury superimposed on chronic kidney disease Likely prerenal. On admission patient was complaining of diarrhea. Renal function WNL at the moment. Patient has history of CKD with baseline creatinine of 2-4. Currently nonoliguric. Monitor electrolytes and volume status, avoid nephrotoxic meds. Outpatient PCP and nephrology follow-up. Coronary artery disease History of CABG and multiple stent placement. Denies any anginal symptoms. Continue DAPT, ANDRES, beta-blockers, statins. Outpatient PCP and cardiology follow-up. DM2 History of uncontrolled diabetes. Hemoglobin A1c 11.6% on 12/14/2019. Diabetic diet, Accu-Chek, hypoglycemia protocol. Diabetic education. Basal, prandial and correctional insulin. Adjust dosage as needed. Essential Hypertension Normotensive, appears euvolemic. Resume home meds. Adjust meds as needed. Outpatient PCP follow-up. Left leg pain Patient complaining of diffuse left lower extremity pain. CT left lower extremity negative for any acute abnormalities. LLE venous Doppler negative for DVT. On physical examination has diffuse pain and left lower extremity, no swelling or any sign of infection noted. Neurovascularly intact. Continue supportive measures, ANDRES bandage PRN for edema. GIANNI needs CPAP Dispo: Plan to discharge to SNF today - Additional Information Resuscitation Status: Full Code Discharge Diet: Diabetic Discharge Activity: Activity As Tolerated Referrals: [facility] [Outside] Prescriptions: Albuterol Sulfate [Albuterol Sulfate Hfa] 6.7 gm IH 5XD #1 hfa.aer.ad Cefdinir 300 mg PO BID 5 Days capsule Doxycycline Hyclate 100 mg PO BID #10 tablet. Oxycodone HCl/Acetaminophen [Percocet 5-325 mg Tablet] 1 tab PO Q6HP PRN #12 tablet PRN Reason: Home Medications: Clopidogrel Bisulfate [Plavix 75 mg Tablet] 75 mg PO DAILY 08/31/18 Gabapentin [Neurontin 300 mg Capsule] 300 mg PO BID 08/31/18 Aspirin [Ecotrin 81 mg EC Tablet] 81 mg PO DAILY #30 tabec 09/06/18 Carbamazepine [Tegretol Xr 200 mg Tab.sr] 200 mg PO BID 12/14/19 Carvedilol [Coreg 12.5 mg Tablet] 12.5 mg PO Q12 12/14/19 Icosapent Ethyl [Vascepa] 1 gm PO BID 12/14/19 Insulin Degludec [Tresiba Flextouch U-200] 50 unit SQ QHS 12/14/19 Potassium Chloride [Klor-Con 10 Meq Tablet ER] 20 meq PO DAILY 12/14/19 Vit B12/Levomefolate/Vit B6/B2 [Metafolbic Tablet] 1 each PO DAILY 12/14/19 Metoprolol Succinate [Toprol Xl 50 mg Tab.sr] 100 mg PO DAILY tab.sr.24h 12/16/19 Furosemide [Lasix 20 mg Tablet] 20 mg PO QAM 02/10/20 Lisinopril [Zestril] 40 mg PO QAM 02/10/20 Insulin Aspart [Novolog Flexpen] 0 unit SUBCUT .SLD SCALE 02/12/20 Simvastatin 40 mg PO QHS 02/12/20 Acetaminophen [Tylenol 325 mg Tablet] 650 mg PO Q4HP PRN tablet 02/15/20 Albuterol Sulfate [Albuterol Sulfate Hfa] 6.7 gm IH 5XD #1 hfa.aer.ad 02/15/20 Cefdinir 300 mg PO BID 5 Days capsule 02/15/20 Doxycycline Hyclate 100 mg PO BID #10 tablet. 02/15/20 Oxycodone HCl/Acetaminophen [Percocet 5-325 mg Tablet] 1 tab PO Q6HP PRN #12 tablet 02/15/20 History of Present Illiness History of Present Illness: RUSSELL PARRA is a 69 year old male Physical Exam Vital Signs: Temp Pulse Resp BP Pulse Ox 98.2 F 70 16 131/48 H 96 02/15/20 11:23 02/15/20 11:23 02/15/20 11:23 02/15/20 11:23 02/15/20 11:23 Intake & Output 02/14/20 02/15/20 02/16/20 06:59 06:59 06:59 Intake Total 270 2641 955 Output Total 400 Balance 270 2241 955 Weight 110.4 kg 113.2 kg Results Laboratory Results: WBC 10.0 10^3/uL (4.0-10.5) 02/14/20 05:30 RBC 3.09 10^6/uL (4.35-5.55) L 02/14/20 05:30 Hgb 9.8 g/dL (13.5-17.0) L 02/14/20 05:30 Hct 28.2 % (37.9-51.0) L 02/14/20 05:30 MCV 91 fl (80-97) 02/14/20 05:30 MCH 31.7 pg (27.0-33.4) 02/14/20 05:30 MCHC 34.7 g/dL (32.0-36.0) 02/14/20 05:30 RDW 13.3 % (11.5-14.0) 02/14/20 05:30 Plt Count 237 10^3/uL (150-450) 02/14/20 05:30 Lymph % (Auto) 17.2 % (13-45) 02/13/20 06:24 Alcorn % (Auto) 8.8 % (3-13) 02/13/20 06:24 Eos % (Auto) 2.1 % (0-6) 02/13/20 06:24 Baso % (Auto) 0.2 % (0-2) 02/13/20 06:24 Absolute Neuts (auto) 7.8 10^3/uL (1.7-8.2) 02/13/20 06:24 Absolute Lymphs (auto) 1.9 10^3/uL (0.5-4.7) 02/13/20 06:24 Absolute Monos (auto) 1.0 10^3/uL (0.1-1.4) 02/13/20 06:24 Absolute Eos (auto) 0.2 10^3/uL (0.0-0.6) 02/13/20 06:24 Absolute Basos (auto) 0.0 10^3/uL (0.0-0.2) 02/13/20 06:24 Seg Neutrophils % 71.7 % (42-78) 02/13/20 06:24 ESR 119 mm/hr (0-20) H 02/14/20 05:30 VBG pH 7.39 (7.30-7.42) 02/14/20 05:30 VBG pCO2 43.0 mmHg (35-63) 02/14/20 05:30 VBG HCO3 25.7 mmol/L (20-32) 02/14/20 05:30 VBG Base Excess 0.6 mmol/L 02/14/20 05:30 Sodium 135.6 mmol/L (137-145) L 02/14/20 05:30 Potassium 4.2 mmol/L (3.6-5.0) 02/14/20 05:30 Chloride 103 mmol/L (98-107) 02/14/20 05:30 Carbon Dioxide 25 mmol/L (22-30) 02/14/20 05:30 Anion Gap 8 (5-19) 02/14/20 05:30 BUN 19 mg/dL (7-20) 02/14/20 05:30 Creatinine 1.60 mg/dL (0.52-1.25) H 02/14/20 05:30 Est GFR ( Amer) 52 (>60) L 02/14/20 05:30 Est GFR (MDRD) Non-Af 43 (>60) L 02/14/20 05:30 Glucose 242 mg/dL (75-110) H 02/14/20 05:30 POC Glucose 184 mg/dL (70-110) H 02/15/20 11:22 Lactic Acid 1.1 mmol/L (0.7-2.1) 02/12/20 17:17 Uric Acid 9.3 mg/dL (3.5-8.5) H 02/12/20 17:17 Calcium 8.2 mg/dL (8.4-10.2) L 02/14/20 05:30 Phosphorus 2.8 mg/dL (2.5-4.5) 02/13/20 06:24 Magnesium 1.9 mg/dL (1.6-2.3) 02/14/20 05:30 Total Bilirubin 0.4 mg/dL (0.2-1.3) 02/14/20 05:30 Direct Bilirubin 0.3 mg/dL (0.0-0.4) 02/14/20 05:30 Neonat Total Bilirubin Not Reportable 02/14/20 05:30 Neonat Direct Bilirubin Not Reportable 02/14/20 05:30 Neonat Indirect Bili Not Reportable 02/14/20 05:30 AST 29 U/L (17-59) 02/14/20 05:30 ALT 13 U/L (<50) 02/14/20 05:30 Alkaline Phosphatase 62 U/L (38-126) 02/14/20 05:30 Troponin I < 0.012 ng/mL 02/10/20 13:20 C-Reactive Protein 311.9 mg/L (<10.0) H 02/14/20 05:30 NT-Pro-B Natriuret Pep 293 pg/mL (<125) H 02/10/20 13:20 Total Protein 4.7 g/dL (6.3-8.2) L 02/14/20 05:30 Albumin 2.2 g/dL (3.5-5.0) L 02/14/20 05:30 Urine Color YELLOW 02/10/20 14:50 Urine Appearance SLIGHTLY-CLOUDY 02/10/20 14:50 Urine pH 5.0 (5.0-9.0) 02/10/20 14:50 Ur Specific [place] 1.015 02/10/20 14:50 Urine Protein NEGATIVE mg/dL (NEGATIVE) 02/10/20 14:50 Urine Glucose (UA) >=500 mg/dL (NEGATIVE) H 02/10/20 14:50 Urine Ketones TRACE mg/dL (NEGATIVE) H 02/10/20 14:50 Urine Blood NEGATIVE (NEGATIVE) 02/10/20 14:50 Urine Nitrite NEGATIVE (NEGATIVE) 02/10/20 14:50 Urine Bilirubin NEGATIVE (NEGATIVE) 02/10/20 14:50 Urine Urobilinogen NEGATIVE mg/dL (<2.0) 02/10/20 14:50 Ur Leukocyte Esterase NEGATIVE (NEGATIVE) 02/10/20 14:50 Urine WBC (Auto) 5 /HPF 02/10/20 14:50 Urine RBC (Auto) 0 /HPF 02/10/20 14:50 U Hyaline Cast (Auto) 24 /LPF 02/10/20 14:50 Squamous Epi Cells Auto <1 /HPF 02/10/20 14:50 Urine Mucus (Auto) RARE /LPF 02/10/20 14:50 Urine Ascorbic Acid NEGATIVE (NEGATIVE) 02/10/20 14:50 COVID-19 Source See comment 02/12/20 12:54 COVID-19 (BARBARA) Not Detected (Not Detect) 02/12/20 12:54 Influenza A (RT-PCR) NEGATIVE (NEGATIVE) 02/10/20 19:57 Influenza B (RT-PCR) NEGATIVE (NEGATIVE) 02/10/20 19:57 RSV (RT-PCR) NEGATIVE (NEGATIVE) 02/10/20 19:57 SARS-CoV-2 Rap RNA(RT-PCR) NEGATIVE (NEGATIVE) 02/10/20 19:57 02/10/20 13:20 Troponin I < 0.012 NT-Pro-B Natriuret Pep 293 H Impressions: Chest X-Ray 02/10/20 13:09 IMPRESSION: No acute radiographic abnormality or significant interval change. Abdomen/Pelvis CT 02/10/20 14:54 IMPRESSION: 1. Interval resolution of previously demonstrated pancreatitis. 2. No new acute abnormality on noncontrast CT of the abdomen and pelvis. 3. Nonobstructing right renal calculus. Head CT 02/10/20 14:56 IMPRESSION: NO ACUTE INTRACRANIAL FINDINGS. EVIDENCE OF ACUTE STROKE: NO. Lower Extremity CT 02/11/20 08:35 IMPRESSION: No evidence of acute fracture. Joint effusion. KUB X-Ray 02/12/20 17:07 IMPRESSION: Mild constipation. Chest CT 02/12/20 19:10 IMPRESSION: 1. Limited study due to motion artifact. Question subtle groundglass opacities which may be related to edema or viral pneumonia. May represent artifact. 2. Mild cardiomegaly. Mild calcifications aortic valve. Venous Doppler Study 02/13/20 00:00 IMPRESSION: 1. No evidence of DVT or SVT in the left lower extremity. 2. Approximately 5 cm left popliteal cyst. Stroke Is this a Stroke Patient?: No Acute Heart Failure Is this a Heart Failure Patient?: No
== END 2020-02-15 15:36 | DRG 682 ==
LOC: ER 10:04 → INTOOBSV 02-12 19:46 → EH 02-12 19:46 → 4S 02-12 21:45 → OBSVTOIN 02-13 12:32
PROVIDERS: ADMIT Internal Medicine; ATTEND Family Medicine
DX: N17.9 Acute kidney failure, unspecified (principal); G93.41 Metabolic encephalopathy; E87.1 Hypo-osmolality and hyponatremia; I69.351 Hemiplegia and hemiparesis following cerebral infarction affecting right dominant side; E83.42 Hypomagnesemia; E11.65 Type 2 diabetes mellitus with hyperglycemia; R19.7 Diarrhea, unspecified; Z90.49 Acquired absence of other specified parts of digestive tract; I25.2 Old myocardial infarction; Z20.828 Contact with and (suspected) exposure to other viral communicable diseases; I25.10 Atherosclerotic heart disease of native coronary artery without angina pectoris; G47.33 Obstructive sleep apnea (adult) (pediatric); K21.9 Gastro-esophageal reflux disease without esophagitis; M19.90 Unspecified osteoarthritis, unspecified site; R50.9 Fever, unspecified; L89.301 Pressure ulcer of unspecified buttock, stage 1; I12.9 Hypertensive chronic kidney disease with stage 1 through stage 4 chronic kidney disease, or unspecified chronic kidney disease; E11.22 Type 2 diabetes mellitus with diabetic chronic kidney disease; N18.31 Chronic kidney disease, stage 3a; M79.662 Pain in left lower leg; G31.84 Mild cognitive impairment of uncertain or unknown etiology; Z95.1 Presence of aortocoronary bypass graft; Z79.4 Long term (current) use of insulin; Z79.02 Long term (current) use of antithrombotics/antiplatelets; Z82.49 Family history of ischemic heart disease and other diseases of the circulatory system; Z83.3 Family history of diabetes mellitus
CPT/HCPCS: 36415; 70450; 71045; 71260; 74018; 74176; 80048; 80053; 81001; 82803; 82962; 83605; 83735; 83880; 84100; 84484; 84550; 85025; 85027; 85652; 86140; 87040; 87635; 93005; 93010; 93971; 96365; 96366; 96375; 99285; 0241U; C9803; J0696; J1650; J1815; J2270; J2405; J3475; J7030

== ENCOUNTER 2020-02-19 22:00 | Emergency (ER) | payer MEDICARE, OTHER ==
--- NOTE | 2020-02-20 00:36 | ER Document Report ---
ED General - General Chief Complaint: Altered Mental Status Stated Complaint: CONFUSION/COMBATIVE Time Seen by Provider: 02/20/20 00:30 Primary Care Provider: THOMAS PELAEZ MD [Primary Care Provider] - Follow up as needed TRAVEL OUTSIDE OF THE [place] IN LAST 30 DAYS: No - HPI Notes: 69-year-old male presents from rehab facility for concerns of combative behavior. Patient states that he was supposed to be doing a new exercise at rehab, he felt that he was not able to perform the exercise and therefore did not want to do it. He states that this caused him to become upset with the staff as they were trying to force him into something that he did not want to do, which ultimately caused an argument between him and the staff. He states that he just tried to crawl away from situation, however EMS was called and he was taken to the emergency department. He currently denies complaints whatsoever. - Related Data Allergies/Adverse Reactions: No Known Allergies Allergy (Verified 12/13/19 15:12) Past Medical History - General Information source: Patient - Social History Smoking Status: Unknown if Ever Smoked Family History: CAD, DM, Hypertension - Past Medical History Cardiac Medical History: Reports: Hx Coronary Artery Disease, Hx Heart Attack, Hx Hypercholesterolemia, Hx Hypertension Pulmonary Medical History: Reports: Hx Asthma - HX, Hx Sleep Apnea - cpap did not help Denies: Hx Bronchitis, Hx COPD, Hx Pneumonia, Hx Tuberculosis Neurological Medical History: Reports: Hx Cerebrovascular Accident - R SIDE WEAKNESS. Denies: Hx Seizures Endocrine Medical History: Reports: Hx Diabetes Mellitus Type 2. Denies: Hx Diabetes Mellitus Type 1, Hx Hyperthyroidism, Hx Hypothyroidism Renal/ Medical History: Denies: Hx Peritoneal Dialysis GI Medical History: Reports: Hx Gastroesophageal Reflux Disease. Denies: Hx Cirrhosis, Hx Crohn's Disease, Hx Hepatitis, Hx Hiatal Hernia, Hx Ulcer, Hx Ulcerative Colitis Musculoskeletal Medical History: Reports Hx Arthritis - GENERALIZED, Denies Hx Fibromyalgia, Reports Hx Gout Skin Medical History: Reports Hx Cellulitis - Lower extremity cellulitis due to chronic edema, Denies Hx Eczema, Denies Hx Psoriasis Psychiatric Medical History: Denies: Hx Depression Traumatic Medical History: Reports: Hx Fractures - right gallegos Infectious Medical History: Reports: Hx C-Diff. Denies: Hx Hepatitis Past Surgical History: Reports: Hx Appendectomy, Hx Cardiac Catheterization, Hx Cholecystectomy, Hx Coronary Artery Bypass Graft - 5 vessels, Hx Coronary Stent, Hx Open Heart Surgery - STENT bypass. Denies: Hx Pacemaker - Immunizations Hx Diphtheria, Pertussis, Tetanus Vaccination: No Hx Pneumococcal Vaccination: 12/22/16 Review of Systems - Review of Systems Constitutional: No symptoms reported EENT: No symptoms reported Cardiovascular: No symptoms reported Respiratory: No symptoms reported Gastrointestinal: No symptoms reported Genitourinary: No symptoms reported Male Genitourinary: No symptoms reported Musculoskeletal: Other - Chronic leg weakness Skin: No symptoms reported Hematologic/Lymphatic: No symptoms reported Neurological/Psychological: No symptoms reported Physical Exam - Vital signs Vitals: Pulse Resp BP Pulse Ox 75 16 148/62 H 94 02/19/20 23:03 02/19/20 23:03 02/19/20 23:03 02/19/20 23:03 - General General appearance: Appears well, Alert In distress: None - HEENT Head: Normocephalic, Atraumatic Extraocular movements intact: Yes Pupils: PERRL - Respiratory Breath sounds: Normal - Cardiovascular Rhythm: Regular Heart sounds: Normal auscultation - Abdominal Inspection: Obese Tenderness: Nontender - Extremities General lower extremity: No: Edema - Neurological Neuro grossly intact: Yes Cognition: Normal Orientation: AAOx4 Notes: Contractured right arm from previous stroke. Leg strength symmetric bilaterally. Sensation grossly intact. Face symmetric, speech clear. - Psychological Associated symptoms: Normal affect - Skin Skin Temperature: Warm Course - Re-evaluation Re-evalutation: 69-year-old male presents from rehab facility for what sounds like to be an argument between him and facility staff after he refused to do an exercise. Patient currently denies complaints. He is alert and oriented, mentation is intact, afebrile and hemodynamically stable. Patient reports he is at his baseline state of health. Given that he is a diabetic, will check a fingerstick, will also check urine given that he has history of UTI want to assure that no underlying process is present, though low suspicion for this as it does sound to be purely situational with what happened today. 02/20/20 01:59 Glucose not markedly elevated, urine does not suggest UTI. Patient appropriate for discharge at this time back to rehab facility. - Vital Signs Vital signs: Temp Pulse Resp BP Pulse Ox 98.4 F 77 16 139/59 H 100 02/20/20 02:58 02/20/20 02:58 02/19/20 23:03 02/20/20 02:58 02/20/20 02:58 - Laboratory Results Laboratory Results Interpreted: 02/20/20 02/20/20 01:15 01:49 POC Glucose 168 H Urine Glucose (UA) 50 H Urine Ketones 20 H Urine Blood SMALL H Critical Laboratory Results Reviewed: No Critical Results - Radiology Results Critical Radiology Results Reviewed: No Critical Results Discharge - Discharge Clinical Impression: Physical deconditioning Condition: Stable Disposition: REHAB FACILITY Referrals: THOMAS PELAEZ MD [Primary Care Provider] - Follow up as needed
[2020-02-20 01:49] LABS: APPEARANCE,URINE CLEAR; BILIRUBIN,URINE NEGATIVE (NEGATIVE); COLOR,URINE YELLOW; GLUCOSE, URINE 50 mg/dL (NEGATIVE); KETONES,URINE 20 mg/dL (NEGATIVE); LEUKOCYTE ESTERASE,URINE NEGATIVE (NEGATIVE); NITRITE,URINE NEGATIVE (NEGATIVE); PROTEIN,URINE NEGATIVE (NEGATIVE); URINE SPECIFIC GRAVITY 1.018; UROBILINOGEN,URINE NEGATIVE mg/dL (<2.0)
[2020-02-20 02:59] VITALS: BP 139/59
== END 2020-02-20 03:23 ==
LOC: ER 22:00
DX: R53.1 Weakness (principal); I69.398 Other sequelae of cerebral infarction; E11.9 Type 2 diabetes mellitus without complications; Z87.442 Personal history of urinary calculi
CPT/HCPCS: 81001; 82962; 99285